=== PATIENT | male | born 1975 | race Two or more races ===

== ENCOUNTER 2020-10-12 15:02 | Outpatient (REF) | payer MEDICARE, SELFPAY ==
[2020-10-12 16:31] LABS: Hematocrit 47.7 % (42-52); Hemoglobin 15.6 g/dl (14.0-18.0); Mean Corpuscular HGB Conc 32.7 g/dl (31.0-36.0); Mean Corpuscular Hemoglobin 29.1 pg (27.0-33.0); Mean Corpuscular Volume 88.8 fL (80-98); Mean Platelet Volume 10.7 fL (9.4-12.4); Platelet Count 374 X10*3/uL (160-400); Red Blood Count 5.37 X10*6/uL (4.60-5.80); Red Cell Distribution Width 13.7 % (11.0-16.0)
[2020-10-12 16:35] LABS: Estimated Average Glucose 94 mg/dL; Hemoglobin A1c % 4.9 %
[2020-10-12 16:48] LABS: Alanine Aminotransferase 31 U/L (0-40); Albumin Level 4.5 g/dL (3.5-5.0); Alkaline Phosphatase 78 U/L (39-117); Anion Gap 12 (12-20); Aspartate Amino Transferase 21 U/L (5-37); Bilirubin Total 0.7 mg/dL (0.0-1.0); Blood Urea Nitrogen 14 mg/dL (9-16); Calcium 9.3 mg/dL (8.4-10.2); Carbon Dioxide 27 mmol/L (22-29); Chloride 104 mmol/L (96-108); Cholesterol 178 mg/dL; Estimated Glomerular Filt Rate > 60; Glucose Random 74 mg/dL (60-115); HDL Cholesterol 38 mg/dL; LDL Cholesterol Calculated 115 mg/dl; Potassium 4.2 mmol/L (3.3-5.1); Sodium 139 mmol/L (135-145); Total Protein 7.1 g/dL (6.5-8.0); Triglycerides 129 mg/dL
[2020-10-12 17:08] LABS: Vitamin D 25-OH Total 13.4 ng/mL (>30)
== END 2020-10-12 15:03 | disposition home or self-care (01) ==
LOC: HO.LAB 15:02
PROVIDERS: PCP Nurse Practitioner Family; Visit Provider Nurse Practitioner Family
DX: B00.9 Herpesviral infection, unspecified (principal); E55.9 Vitamin D deficiency, unspecified; E78.1 Pure hyperglyceridemia; F11.90 Opioid use, unspecified, uncomplicated; F41.8 Other specified anxiety disorders
CPT/HCPCS: 36415; 80053; 80061; 82306; 83036; 84443; 85027

== ENCOUNTER 2020-12-27 17:53 | Emergency (ER) | payer MEDICARE, MEDICAID, SELFPAY ==
--- NOTE | ~2020-12-27 | XR_ITS ---
EXAMINATION: XR RIBS, RIGHT CLINICAL INFORMATION: Right posterior chest wall pain. Rule out fracture. COMPARISON: None TECHNIQUE: 3 views of the right ribs were obtained. FINDINGS: Lungs are clear. No consolidation, pneumothorax, or pleural effusion. The cardiomediastinal silhouette and pulmonary vasculature are normal. Multiple views right ribs reveal no visible right rib fracture. XR/XR ribs RT min 3V w CXR1V IMPRESSION: Unremarkable chest exam. No visible right rib fractures seen.
[2020-12-27 18:10] VITALS: BP 125/93; PULSE 96; RESP 18; TEMP 37.1; O2SAT 100; BMI 23.8
--- NOTE | 2020-12-27 19:13 | ED.GENADULT ---
HPI - General Adult General Chief complaint: Back Pain/Injury Stated complaint: back pain Time Seen by Provider: 12/27/20 19:01 Source: patient Mode of arrival: ambulatory Limitations: no limitations History of Present Illness HPI narrative: 45-year-old male who presents emergency department for evaluation of right posterior chest pain. The patient does have a history of chronic lower back and pelvic pain secondary to a work related injury in 2007. The patient takes oxycodone 15 mg on a regular basis for pain. According to his significant other, on , 5 days prior he went fishing. On Saturday, 4 days prior he was lifting the edge of a bed up so that his girlfriend clean on in the bed when he had a sudden onset of pain in his right posterior chest, lower back. He states that he felt a cracking sensation. Since that time, he has had severe, constant pain any points to his right posterior chest when asked to localize the pain. The pain is a sharp pain which is worse with movement worse with breathing. He denies shortness of breath. He denies numbness or weakness of his extremities. He denies fever, chills, cough. Related Data Previous Rx's Medication Instructions Recorded prednisone 60 mg PO DAILY 7 Days #21 tab 12/27/20 Allergies Allergy/AdvReac Type Severity Reaction Status Date / Time morphine [MORPHINE] Allergy Severe CONSTIPATION, Unverified 04/14/20 19:15 stomach upset cyclobenzaprine Allergy Unknown DRY MOUTH Unverified 04/14/20 19:15 [From FLEXERIL] ibuprofen [From MOTRIN] Allergy Unknown ABD PAIN Unverified 04/14/20 19:15 influenza H1N1 Allergy Unknown Weakness Uncoded 12/27/20 18:10 Review of Systems Review of Systems: Yes all other systems are reviewed and are negative [facility] Past Medical History [facility] Narrative: Past medical history: Chronic lower back and pelvic pain secondary to work related injury in 2007, patient states that he had a surgery on his L5 and on his pelvis secondary to injury. The patient had a TENS unit x7 years which was recently removed. Social history: He does smoke cigarettes daily. He denies alcohol and drug use. Social History Social History Advance Directives: No Advance Directives Information Provided: Yes Physical Exam Vital Signs: Vital Signs: Last Vital Signs Temp 98.7 F 12/27/20 18:10 Pulse 96 12/27/20 18:10 Resp 18 12/27/20 18:10 BP 125/93 H 12/27/20 18:10 Pulse Ox 100 12/27/20 18:10 Body Mass Index 23.8 Const: General: cooperative and in distress ([id number] Secondary to his pain) Orientation/consciousness: oriented to person and oriented to place Limitations: no limitations HENMT: Head: Yes normal to inspection, Yes normocephalic and Yes atraumatic Ears: external ears normal General nose exam: Normal external nose present Face and sinus: Yes normal facial exam Mouth: Normal oral and palatal mucosa present Throat: Yes posterior oropharynx normal Eyes: Periorbital: periorbital findings normal Eyelids: Yes eyelids normal Conjunctivae: conjunctivae normal Sclerae: sclerae normal Corneas: corneas normal Pupils: Equal, round and reactive pupils present Direct Ophthalmoscopy: normal light reflex Neck: Neck: Yes full ROM, Yes no lymphadenopathy, Yes no meningeal signs, Yes trachea midline and Yes supple Chest: Chest palpation & inspection: normal inspection of the chest and tenderness (Moderate right posterior chest tenderness) rib (Moderate right posterior) Resp: Effort & Inspection: normal respiratory effort and able to speak in complete sentences Auscultation: clear to auscultation bilaterally Cardio: Rate: regular rate Rhythm: regular rhythm Heart sounds: S1 normal heart sound present, S2 normal heart sound present and no murmurs GI: Inspection: Yes normal to inspection Palpation (GI): Soft to palpation, nontender, no guarding, not rigid and No hepatosplenomegaly present : General: Yes no CVA tenderness Back/Spine/Pelvis: Back: no CVA tenderness Cervical Spine: normal cervical lordosis Thoracic/Lumbar Spine: thoracic and lumbar spine normal to inspection Skin: Lesions: no lesions Rashes: no rashes Wounds: no wounds Neuro: General: oriented to person, oriented to place and no meningeal signs Cranial nerves: Yes CN's II-XII intact bilaterally and Yes Equal, round and reactive pupils present Cognition (Neuro): normal cognition Motor exam (neuro): 5/5 motor strength present throughout Extrem: General: Yes normal to inspection and Yes full ROM Psych: Appearance: well kempt Mental Status: mental status grossly normal Speech and movement: Normal speech and movement present Affect: normal affect Attitude: cooperative Thought process: Normal thought process present Thought content: Normal thought content present Course Course Course Narrative: 45-year-old male who presents emergency department for evaluation of 4 days of right posterior chest pain that started suddenly after he was lifting a bed. Patient did feel a cracking sensation at the time of onset of the pain. Physical examination did reveal right posterior chest pain. Concerned that he may have a right rib fracture. I did order right rib x-rays and chest x-ray. 2023: The patient's chest x-ray and rib series did not reveal any acute fractures. My impression is that the patient has a nondisplaced rib fracture. The patient has a back belt that he wears and I moved it up to cover his rib area where he is having the pain. This gave him immediate relief of the pain suggesting that this is a rib injury. Patient was advised to wear his back belt as a rib belt for the next 1-2 weeks. He was given prednisone 60 mg orally and Tylenol 975 mg orally for his pain here in the emergency department. He was given a prescription for prednisone 60 mg once a day for 1 week. He was given verbal and printed instructions on rib injury and discharged home. Discharge Plan Discharge Clinical Impression: Right rib fracture Qualifiers: Encounter type: initial encounter Rib fracture type: single rib Fracture type: closed Qualified Code(s): S22.31XA - Fracture of one rib, right side, initial encounter for closed fracture Patient Disposition: Home, Self-Care Instructions: Rib Fracture (ED) Additional Instructions: Your chest x-ray did not reveal any displaced rib fracture. Based on your examination however I think you have a nondisplaced/cracked rib fracture. Wear your back belt as a rib belt for the next 1-2 weeks to help with your pain. Continue taking your oxycodone as prescribed. Take extra-strength Tylenol 500 mg pills, 2 pills every 6 hours as needed for pain. Take prednisone 20 mg pills, 3 pills once a day for 1 week. This is a strong anti-inflammatory pain medication. Follow-up with your doctor in 2 days. Please return to the emergency department if your symptoms get worse or if you develop any symptoms that are concerning to you. Prescriptions: New prednisone 20 mg tablet 60 mg PO DAILY 7 Days Qty: 21 RF: 0
[2020-12-27] MEDS: Acetaminophen 325 MG TABLET 975 MG PO (20:42)
[2020-12-27] MEDS: predniSONE 20 MG TABLET 60 MG PO (20:42)
== END 2020-12-27 20:30 | disposition home or self-care (01) ==
PROVIDERS: Emergency Provider Emergency Medicine Emergency Medical Services
DX: S22.31XA Fracture of one rib, right side, initial encounter for closed fracture (principal); R07.9 Chest pain, unspecified; M54.5 Low back pain; X50.0XXA Overexertion from strenuous movement or load, initial encounter; X50.3XXA Overexertion from repetitive movements, initial encounter; X50.9XXA Other and unspecified overexertion or strenuous movements or postures, initial encounter; Y93.E9 Activity, other interior property and clothing maintenance; Y92.009 Unspecified place in unspecified non-institutional (private) residence as the place of occurrence of the external cause; Y99.9 Unspecified external cause status; Z79.899 Other long term (current) drug therapy
CPT/HCPCS: 71101; 99284

== ENCOUNTER 2021-03-01 16:15 | Outpatient (REF) | payer MEDICARE, MEDICAID, SELFPAY ==
--- NOTE | ~2021-03-01 | XR_ITS ---
EXAMINATION: XR ABDOMEN KUB CLINICAL INDICATION: Pre-MRI screening COMPARISON: None TECHNIQUE: AP view of the abdomen. FINDINGS: Fusion hardware noted at the lumbosacral junction. Nonobstructive bowel gas pattern. No dilated loops of bowel. Gas and stool throughout the colon. No unexpected radiopaque foreign body. The lung bases are clear. XR/XR abdomen 1V IMPRESSION: No unexpected radiopaque foreign body.
--- NOTE | ~2021-03-01 | MR_ITS ---
EXAMINATION: MR LUMBAR SPINE WITHOUT AND WITH CONTRAST CLINICAL INFORMATION: Thoracolumbar lumbosacral intervertebral disc degeneration. Patient states right leg pain and right leg numbness. COMPARISON: Lumbar spine CT 04/21/2018. TECHNIQUE: MRI of the lumbar spine was obtained using routine sequences without and with intravenous contrast. A total of 6 mL Gadavist was intravenously administered. FINDINGS: There are postoperative findings related to instrumented fusion across the L5-S1 level with transpedicular screws and paired stabilization rods. Mild anterolisthesis of L5 on S1 appears stable from prior. The nonsurgical disc heights are preserved. Minimal amount of edema is seen at the anterior superior corner of T12. The distal spinal cord appears normal. The conus medullaris terminates normally at the L2 level. There is no abnormal cauda equina nerve root enhancement. The cauda equina nerve roots appear mildly disorganized and slightly redundant in the lower lumbar segments which could be related to arachnoiditis. The extraspinal soft tissues are within normal limits. SPINAL LEVELS: L1-L2: No posterior disc abnormality. No spinal canal or neural foraminal stenosis. L2-L3: No posterior disc abnormality. No spinal canal or neural foraminal stenosis. L3-L4: Minimal disc bulging. Minimal narrowing of the neural foramina. No spinal canal stenosis. L4-L5: Disc bulging with mild facet arthropathy. Moderate right and mild to moderate left neural foraminal stenosis with mild compression of the exiting right L4 and abutment of the exiting left L4 nerve roots. No spinal canal stenosis. L5-S1: Posterior decompression with instrumented fusion. No spinal canal stenosis. Right neural foramen appears mildly narrowed but without definite foraminal nerve root compression. MR/MR lumbar spine wo/w con IMPRESSION: Postoperative findings related to posterior decompression and instrumented fusion at the L5-S1 level. No definite nerve root compression seen at this level. At L4-L5 there is moderate right and mild to moderate left neural foraminal stenosis with mild compression of the exiting right L4 and abutment of the exiting left L4 nerve roots. Cauda equina nerve roots appear mildly disorganized and slightly redundant which is nonspecific but could be seen in the setting of arachnoiditis.
--- NOTE | ~2021-03-01 | XR_ITS ---
EXAMINATION: XR PRE-MRI SCREENING CLINICAL INFORMATION: Pre-MRI screening. Prior stimulator wires present. COMPARISON: Radiographs lumbar spine 11/18/[address] lumbar spine 04/21/2018. TECHNIQUE: Abdominal and pelvic radiographs are obtained in 2 views. FINDINGS: There has been prior lumbosacral laminectomy with bilateral rodding and pedicle screws lumbosacral junction. The hardware appears intact. The previously noted stimulator generator and wire leads have been removed. No lead fragments present. Lung bases are clear. XR/XR pre mri screening IMPRESSION: 1. Incidental rodding lumbosacral junction. 2. The generator device and electrodes stimulator leads are no longer present.
== END 2021-03-01 16:16 | disposition home or self-care (01) ==
LOC: HO.MRI 16:15
PROVIDERS: Visit Provider Nurse Practitioner Family
DX: M51.17 Intervertebral disc disorders with radiculopathy, lumbosacral region (principal)
CPT/HCPCS: 72158; 74018; A9585

== ENCOUNTER → 2021-12-04 16:17 | Outpatient (BNVA) | payer MEDICARE, MEDICAID, SELFPAY | PROVIDERS: PCP Family Medicine; Referring Provider Family Medicine; Visit Provider Nurse Practitioner | DX: Z12.11 Encounter for screening for malignant neoplasm of colon (principal); K21.9 Gastro-esophageal reflux disease without esophagitis | CPT/HCPCS: 99202 ==

== ENCOUNTER 2022-04-06 16:12 | Outpatient (REF) | payer MEDICARE, MEDICAID, SELFPAY ==
--- NOTE | ~2022-04-06 | CT_ITS ---
EXAMINATION: CT SINUS WITHOUT CONTRAST CLINICAL INFORMATION: 46-year-old with chronic sinusitis. COMPARISON: None TECHNIQUE: Volumetric CT imaging of the paranasal sinuses was done with multiplanar reformatted reconstructions. This CT examination was performed using dose optimization techniques as appropriate, variously including the following: *Automated exposure control *Adjustment of mA and/or kV according to patient size (this includes techniques or standardized protocols for targeted exams where dose is matched to indication/reason for exam; i.e. extremities or head) *Use of iterative reconstruction technique DLP: 112 mGy-cm FINDINGS: Nasal Cavity: [id number] nasal septal deviation to the right is noted anterosuperiorly with slight deviation to the left inferiorly. The olfactory recesses are clear. No nasal cavity masses. Nasopharyngeal soft tissues appear grossly unremarkable within the limitations of the exam. Maxillary Sinuses: Maxillary sinuses are well-pneumatized. There is focal mucosal thickening partially obscuring the right maxillary ostium with an otherwise unopacified OMC on the right. Left OMC is patent. Very small retention cyst along the floor of the right maxillary sinus. Otherwise clear maxillary sinuses with intact bony swanson. Ethmoid Sinuses: The ethmoid complex is predominantly unopacified, with intact bony swanson. Frontal Sinuses: The frontal sinuses are unopacified, with bilaterally patent drainage. A type III frontal cell is noted on the left. Sphenoid Sinus: Unopacified, with bilaterally patent sphenoid ostia. Carotid canals are posterolateral and covered by bone. Additional Findings: The visualized mastoids and middle ear cavities are unopacified. Limited assessment of the visualized intracranial structures show some nonspecific hypodensity in the right inferior frontal white matter. 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 Correlate clinically for any evidence of previous ocular trauma to account for this. CT/CT sinus wo IV con IMPRESSION: 1. Sinusoidal nasal septal deviation without nasal cavity mass. 2. Minimal focal mucosal thickening adjacent to the right maxillary ostium which appears to partially occlude the right OMC without air-fluid level. Minor mucosal thickening and a small retention cyst along the floor of the right maxillary sinus. 3. Nonspecific hypodensity in the inferior right frontal white matter suggested. If clinically warranted, further assessment with CT of the brain may be done for additional evaluation to exclude edema in this region. 4. Findings on the left suggest phthisis bulbi. Suggest correlation for any previous left-sided ocular trauma.
== END 2022-04-06 16:13 | disposition home or self-care (01) ==
LOC: HO.CT 16:12
PROVIDERS: PCP Family Medicine; Visit Provider Family Medicine
DX: J31.0 Chronic rhinitis (principal); F17.200 Nicotine dependence, unspecified, uncomplicated
CPT/HCPCS: 70486

== ENCOUNTER 2022-04-27 14:23 | Outpatient (REF) | payer MEDICARE, MEDICAID, SELFPAY ==
--- NOTE | 2022-04-27 | PFT_ITS ---
FLOWS: FEV1 90% of predicted at 2.75 L. FVC 96% of predicted at 3.71 L. FEV1 to FVC ratio of 0.74. No bronchodilator response. LUNG VOLUMES: Total lung capacity 114% of predicted at 6.03 L. Residual volume 161% of predicted at 2.45 L. Slow vital capacity 94% of predicted at 3.59 L. Expiratory reserve volume 26% of predicted at 0.28 L. Diffusion capacity is normal. IMPRESSION: No obstructive or restrictive ventilatory defect. No bronchodilator response. Increased residual volume suggests air trapping. Virgil Bowman MD AP/MODL / [id number]
[2022-04-27 14:45] LABS: MANUAL DIFF FLAG NO
[2022-04-27 15:07] LABS: Basophils Absolute Auto 0.1 X10*3/uL (0.0-0.2); Basophils Percent Auto 1.1 % (0-2); Eosinophils Absolute Auto 0.1 X10*3/uL (0.0-0.4); Eosinophils Percent Auto 1.3 % (0-4); Hematocrit 45.3 % (42.0-52.0); Hemoglobin 14.9 g/dl (14.0-18.0); Imm Gran Abs Auto 0.01 X10*3/uL (0.00-0.03); Imm Gran Pct Auto 0.1 % (0.0-0.4); Lymphocytes Absolute Auto 2.4 X10*3/uL (1.2-4.9); Lymphocytes Percent Auto 28.8 % (20-40); Mean Corpuscular HGB Conc 32.9 g/dl (31.0-36.0); Mean Corpuscular Hemoglobin 28.9 pg (27.0-33.0); Mean Platelet Volume 11.4 fL (9.4-12.4); Monocytes Absolute Auto 0.5 X10*3/uL (0.1-1.2); Monocytes Percent Auto 5.8 % (2-11); Neutrophils Absolute Auto 5.3 x10*3/uL (2.0-8.3); Neutrophils Percent Auto 62.9 % (45-73); Platelet Count 286 X10*3/uL (160-400); Red Blood Count 5.15 X10*6/uL (4.60-5.80); Red Cell Distribution Width 13.2 % (11.0-16.0); White Blood Count 8.4 X10*3/uL (4.8-10.8)
[2022-04-27 15:14] LABS: Estimated Average Glucose 100 mg/dL; Hemoglobin A1c % 5.1 %
[2022-04-27 15:29] LABS: Cholesterol 164 mg/dL; HDL Cholesterol 33 mg/dL; LDL Cholesterol Calculated 108 mg/dl; Triglycerides 117 mg/dL
[2022-04-27 16:48] LABS: CT PCR NOT DETECTED (Not Detect.); NG PCR NOT DETECTED (Not Detect.)
[2022-04-30 08:13] LABS: HIV AB/AG Nonreactive (Nonreactive); HIV Num 1 0.07 S/CO (0.00-0.99); ~Hepatitis B Surface Antibody NONREACTIVE (Nonreactive)
== END 2022-04-27 14:24 | disposition home or self-care (01) ==
LOC: HO.RESP 14:23
PROVIDERS: PCP Family Medicine; Visit Provider Family Medicine
DX: Z11.3 Encounter for screening for infections with a predominantly sexual mode of transmission (principal); Z11.4 Encounter for screening for human immunodeficiency virus [HIV]; Z00.00 Encounter for general adult medical examination without abnormal findings; J45.20 Mild intermittent asthma, uncomplicated; F17.200 Nicotine dependence, unspecified, uncomplicated; R03.0 Elevated blood-pressure reading, without diagnosis of hypertension; J31.0 Chronic rhinitis; F33.2 Major depressive disorder, recurrent severe without psychotic features; E78.1 Pure hyperglyceridemia
CPT/HCPCS: 80061; 83036; 85025; 86706; 87389; 87491; 87591; 94060; 94727; 94729

== ENCOUNTER 2022-05-21 15:48 | Outpatient (REF) | payer MEDICARE, MEDICAID, SELFPAY ==
--- NOTE | ~2022-05-21 | CT_ITS ---
EXAMINATION: CT HEAD WITH CONTRAST CLINICAL INFORMATION: 46-year-old with previously noted abnormal finding in the right frontal lobe on CT of the sinuses. COMPARISON: 04/06/2022 CT sinus. TECHNIQUE: Contiguous axial imaging was performed from the skull base to vertex following the administration of 85 mL of Omnipaque [address] examination was performed using dose optimization techniques as appropriate, variously including the following: *Automated exposure control *Adjustment of mA and/or kV according to patient size (this includes techniques or standardized protocols for targeted exams where dose is matched to indication/reason for exam; i.e. extremities or head) *Use of iterative reconstruction technique DLP: 729 mGy-cm FINDINGS: BRAIN VOLUME: Within normal limits. STRUCTURAL: No malformations. BRAIN AND MENINGES: Redemonstrated is patchy hypodensity in the inferior right frontal white matter with a similar appearance to the previous study. Small foci of intravascular enhancement are seen at its central and posterior aspect which may reflect neovascularity in this region. Probable small focus of pathologic enhancement is well. No definite mass effect seen related to this. A hypodense lesion is seen in the left subcortical parietal white matter measuring 1 cm which also appears to be associated with a punctate focus of enhancement. The remainder of the brain is normal in morphology and attenuation. No acute territorial infarct, hemorrhage, extra-axial fluid collection, space-occupying process or mass effect. Hannah-white matter differentiation is maintained. VENTRICLES AND SUBARACHNOID SPACES: The ventricular system and subarachnoid spaces are within normal limits without hydrocephalus. ORBITAL STRUCTURES: Redemonstrated is evidence of phthisis bulbi in the left globe. OSSEOUS STRUCTURES, SINUSES/MASTOIDS, EXTRACRANIAL SOFT TISSUES: The bony structures appear intact. The mastoids and middle ear cavities are unopacified and the visualized paranasal sinuses are clear. Probable small bone island in the right frontal bone. CT/CT head/brain w IV con IMPRESSION: 1. Hypodense lesions in the right inferior frontal white matter and left subcortical parietal white matter with tiny enhancing foci within these lesions, which are nonspecific. Differential diagnostic considerations include primarily inflammatory and infectious diseases, particularly demyelination. Neoplastic disease is considered less likely. Recommend MRI of the brain without and with contrast to further assess this at this point. 2. No other acute findings and no significant space-occupying process, mass effect or hydrocephalus. The [facility] staff will call to confirm receipt of this report with acknowledgement of the findings and any recommendations.
[2022-05-21] MEDS: iohexoL 350 MG/ML 100 ML INFUS..BTL IV (16:27)
== END 2022-05-21 15:49 | disposition home or self-care (01) ==
LOC: HO.CT 15:48
PROVIDERS: Visit Provider Family Medicine
DX: J32.9 Chronic sinusitis, unspecified (principal); R93.0 Abnormal findings on diagnostic imaging of skull and head, not elsewhere classified
CPT/HCPCS: 70460; Q9967

== ENCOUNTER 2022-06-19 15:52 | Outpatient (REF) | payer MEDICARE, MEDICAID, SELFPAY ==
--- NOTE | ~2022-06-19 | MR_ITS ---
EXAMINATION: MR BRAIN WITHOUT AND WITH CONTRAST CLINICAL INFORMATION: Disorder of brain. CT recommended MRI. COMPARISON: Head CT 05/21/2022. TECHNIQUE: Multiplanar, multisequence imaging of the brain was performed before and after the intravenous administration of 6 mL of Gadavist. FINDINGS: Mildly expansile foci of T2/FLAIR hyperintensity are seen within the periventricular and deep cerebral white matter, most prominent adjacent to the frontal horn of the right lateral ventricle and in the left parietal white matter, adjacent to the atrium. The imaging appearance is most suspicious for demyelinating plaques. No definite abnormal enhancement is seen There is no acute infarction, hemorrhage, or extra-axial fluid collection. The ventricles are normal in size without hydrocephalus. No signal abnormalities seen within the corpus callosum. The upper cervical cord signal appears normal. The major arterial flow voids are preserved at the skull base. There is a left orbital implant in place. The extra cranial structures are otherwise within normal limits. MR/MR head/brain wo/w con IMPRESSION: Mildly expansile foci of T2/FLAIR hyperintensity are seen within the periventricular and deep cerebral white matter, most prominent adjacent to the frontal horn of the right lateral ventricle and in the left parietal white matter. The imaging appearance is most suspicious for demyelinating plaques. No abnormal enhancement is seen.
== END 2022-06-19 15:53 | disposition home or self-care (01) ==
LOC: HO.MRI 15:52
PROVIDERS: Visit Provider Family Medicine
DX: G93.9 Disorder of brain, unspecified (principal)
CPT/HCPCS: 70553; A9585

== ENCOUNTER 2022-09-26 16:11 | Outpatient (REF) | payer MEDICARE, MEDICAID, SELFPAY ==
[2022-09-26 18:22] LABS: Erythrocyte Sedimentation Rate 2 MM/HR (0-15)
[2022-09-27 20:53] LABS: Lyme Abs Screen <0.90 index
[2022-09-28 15:59] LABS: Anti Nuclear Antibody Screen NEGATIVE (NEGATIVE)
== END 2022-09-26 16:12 | disposition home or self-care (01) ==
LOC: HO.LAB 16:11
PROVIDERS: PCP Family Medicine; Visit Provider Psychiatry & Neurology Neurology
DX: G35 Multiple sclerosis (principal)
CPT/HCPCS: 36415; 85652; 86038; 86039; 86617; 86618

== ENCOUNTER 2022-10-09 09:55 | Day surgery (SDC) | payer MEDICARE, MEDICAID, SELFPAY ==
[2022-06-07 15:19] VITALS: BMI 22.4
[2022-10-05 10:38] VITALS: BMI 23.8
--- NOTE | 2022-10-08 09:28 | HO.ANESPROP2 ---
HPI - Anesthesia Eval Consult details Narrative: 46yo M for Colonoscopy Left eye enucleation PMFSH Active Problems Active Problems: All Active Problems (Updated 06/07/22 @ 15:08 by Debbie Wilcox RN) Asthma (Acute) Smoker (Acute) Lumbar degenerative disc disease (Acute) Chronic low back pain (Acute) Depression with anxiety (Acute) Herpes simplex (Acute) GERD (gastroesophageal reflux disease) (Acute) One eye-mod/oth-blind (Acute) Colon cancer screening (Acute) Past Medical History Medical History Asthma Depression with anxiety Failed spinal cord stimulator GERD (gastroesophageal reflux disease) Pelvis, multiple open fractures with disruption of pelvic [place] Surgical History Surgical History H/O enucleation of left eyeball H/O pelvic surgery History of arthroscopy of right knee History of back surgery Social History Social History Are you a primary health care analyst to a significant other at home: No Do you presently have visiting nurse or other home services: No Patient Tobacco Use Status: Current everyday Tobacco user Tobacco use type: Cigarette Cigarettes Per Day: 10 Meds Allergies Allergy/AdvReac Type Severity Reaction Status Date / Time amitriptyline Allergy Severe Confusion Verified 10/09/22 10:07 morphine [MORPHINE] Allergy Severe CONSTIPATION, Verified 10/09/22 10:07 stomach upset ibuprofen [From MOTRIN] AdvReac Intermediate ABD PAIN Verified 10/09/22 10:07 cyclobenzaprine AdvReac Mild DRY MOUTH Verified 10/09/22 10:07 [From FLEXERIL] influenza H1N1 Allergy Intermediate Weakness Uncoded 10/05/22 10:34 Home Medications Medication Instructions Recorded Confirmed Last Taken Type albuterol sulfate 90 mcg/actuation 2 puff inhalation Q4-6H PRN 12/04/21 06/07/22 Unknown History aerosol inhaler wheezing alprazolam 0.5 mg tablet 0.5 mg PO DAILY PRN anxiety 12/04/21 06/07/22 10/09/22 08:30 History duloxetine 30 mg capsule,delayed 30 mg PO BID 12/04/21 06/07/22 Unknown History release trazodone 50 mg tablet 25 mg PO BEDTIME 12/04/21 10/05/22 Unknown History oxycodone 15 mg tablet 1 tab PO TID PRN Pain 10/05/22 10/05/22 10/09/22 08:30 History Exam Exam Date and Time: October 08, 2022 0928 Height,Weight and Vital Signs: Height 5 ft 2 in Weight 58.967 kg Pertinent Lab Results Pertinent Lab Results: Laboratory Tests 04/27/22 14:42 WBC 8.4 Hgb 14.9 Hct 45.3 Plt Count 286 Assessment and Plan Assessment Anesthesia Assessment: Chart Reviewed
[2022-10-09 10:08] VITALS: BP 116/80; PULSE 68; RESP 15; TEMP 36.9; O2SAT 99
[2022-10-09 10:20] VITALS: BMI 23.8
[2022-10-09] MEDS: Lactated Ringers 1,000 ML 100 ML IVCONT (10:20)
--- NOTE | 2022-10-09 11:28 | P.HPSUR_ITS ---
Pre-Procedural Eval Section A Date of Service: 10/09/22 Section B Chief Complaint: screening Relevant Family History (Specify if Yes): No Relevant Social History: Tobacco Use Present Medications: see Short Stay Collaborative assessment Medical History: Significant History (Asthma Depression with anxiety Failed spinal cord stimulator GERD (gastroesophageal reflux disease) Pelvis, multiple open fractures with disruption of pelvic [place]) History of Previous Operations: Relevant previous surgery/procedure and date(s) (H/O enucleation of left eyeball H/O pelvic surgery History of arthroscopy of right knee History of back surgery) Allergies: Allergies Allergy/AdvReac Type Severity Reaction Status Date / Time amitriptyline Allergy Severe Confusion Verified 10/09/22 10:07 morphine [MORPHINE] Allergy Severe CONSTIPATION, Verified 10/09/22 10:07 stomach upset ibuprofen [From MOTRIN] AdvReac Intermediate ABD PAIN Verified 10/09/22 10:07 cyclobenzaprine AdvReac Mild DRY MOUTH Verified 10/09/22 10:07 [From FLEXERIL] influenza H1N1 Allergy Intermediate Weakness Uncoded 10/05/22 10:34 Review of Systems Sugical H&P ROS: Negative: Constitution, Cardiovascular, Respiratory, Neurological, Psychiatric, Hem-Onc, Allergic/Immunologic, Gastrointestinal, Genitourinary, Musculoskeletal, Integumentary, Endocrine and Eyes/Ears/Nose/Throat Exam Surgical H&P Exam: Normal: HEENT, Normal: Heart, Normal: Lungs, Normal: Extremities, Normal: Abdomen, Normal: Skin and Normal: Neurological Exam Comment: ptosis left eye Plan Diagnosis/Plan: Unchanged I have reviewed the history and physical and performed a pertinent physical examination on my patient. No changes have occurred unless specified. Time Spent With Patient Time: Total time managing care of this patient today ____ minutes.
--- NOTE | 2022-10-09 11:30 | P.OP_ITS ---
Operative Note Operative Note Date of Service: 10/09/22 Narrative: Operative Information Procedure Description: Colonoscopy Indication: screening Anesthesia: MAC COLONOSCOPY Instrument: Olympus variable stiffness pediatric scope 190L Colonoscopy Monitoring: Vital signs and clinical assessment, continuous EKG monitoring, Pulse oximetry, Carbon Dioxide monitoring and blood pressure monitoring were done throughout the procedure. Colon withdrawal time was 8 minutes. Procedure: The patient was placed in the left lateral decubitis position and pre-procedure medications were administered. After a digital rectal examination of the ano-rectum, the video colonoscope was inserted into the rectum and advanced through the colon to the cecum/TI. The colonoscope was slowly withdrawn in a retrograde panoramic fashion and the colon mucosa was carefully examined including a retroflexed view of the rectum. Findings and interventions are described below. Procedure Difficulty: easy Findings: Terminal Ileum-normal Cecum:normal Ascending Colon: 12 mm sessile polyp removed with cold snare, 4-5 mm sessile polyp removed with cold forceps Transverse Colon -normal Descending Colon:normal Sigmoid Colon: normal Rectum: Retroflexion with small inflammed internal hemorrhoids, grade I Anorectum - normal Colon preparation: [place] Bowel Preparation Scale Right colon; 2 Transverse colon: 2 Left colon; 2 (0 = Unprepared colon segment with mucosa not seen due to solid stool that cannot be cleared. 1 = Portion of mucosa of the colon segment seen, but other areas of the colon segment not well seen due to staining, residual stool and/or opaque liquid. 2 = Minor amount of residual staining, small fragments of stool and/or opaque liquid, but mucosa of colon segment seen well. 3 = Entire mucosa of colon segment seen well with no residual staining, small fragments of stool or opaque liquid) Impression and Post Procedure Diagnosis: polyps internal hemorrhoids Plan: High fiber diet leaflet Avoid straining at stool, epsom salts and sitz bath, anusol supps or cream Repeat Colonoscopy in 5 years due to polyps or earlier if clinically indicated Above findings were reviewed with the patient and relevant handouts were provided if indicated.
[2022-10-09 12:03] VITALS: BP 108/76; PULSE 71; RESP 16; TEMP 36.2; O2SAT 99
[2022-10-09 12:18] VITALS: BP 126/84; PULSE 61; RESP 16; TEMP 36.2; O2SAT 99
== END 2022-10-09 13:03 | disposition home or self-care (01) ==
PROVIDERS: PCP Family Medicine; Visit Provider Internal Medicine Gastroenterology
PROC: 0DJD8ZZ Inspection of Lower Intestinal Tract, Via Natural or Artificial Opening Endoscopic (ICD-10-PCS; CPT 45378; principal; 2022-10-09 11:10)
DX: Z12.11 Encounter for screening for malignant neoplasm of colon (principal); D12.2 Benign neoplasm of ascending colon; K64.0 First degree hemorrhoids; J45.909 Unspecified asthma, uncomplicated; F41.8 Other specified anxiety disorders; K21.9 Gastro-esophageal reflux disease without esophagitis; Z79.899 Other long term (current) drug therapy; Z88.0 Allergy status to penicillin; F17.210 Nicotine dependence, cigarettes, uncomplicated; Z98.890 Other specified postprocedural states
CPT/HCPCS: 45385; 45380; 88305

== ENCOUNTER 2022-12-03 18:07 | Emergency (ER) | payer MEDICARE, MEDICAID, SELFPAY ==
--- NOTE | ~2022-12-03 | XR_ITS ---
EXAMINATION: PA AND LATERAL CHEST WITH RIGHT RIBS CLINICAL INFORMATION: Chest pain COMPARISON: Chest and right RIBS 07/29/2020 TECHNIQUE: 2 views chest with 3 additional views right RIBS FINDINGS: No significant abnormality is seen involving the heart, lungs, mediastinum or bony thorax. The ribs appear unremarkable. XR/XR ribs RT 2V IMPRESSION: Unremarkable examination.
--- NOTE | ~2022-12-03 | XR_ITS ---
EXAMINATION: PA AND LATERAL CHEST WITH RIGHT RIBS CLINICAL INFORMATION: Chest pain COMPARISON: Chest and right RIBS 07/29/2020 TECHNIQUE: 2 views chest with 3 additional views right RIBS FINDINGS: No significant abnormality is seen involving the heart, lungs, mediastinum or bony thorax. The ribs appear unremarkable. XR/XR chest 2V IMPRESSION: Unremarkable examination.
--- NOTE | 2022-12-03 18:12 | ECG_ITS ---
Test Reason : CHEST PAIN/SOB Blood Pressure : / mmHG Vent. Rate : 077 BPM Atrial Rate : 077 BPM P-R Int : 152 ms QRS Dur : 090 ms QT Int : 370 ms P-R-T Axes : 085 043 055 degrees QTc Int : 418 ms Normal sinus rhythm Normal ECG No previous ECGs available Referred By: Generic ED Physician Electronically Signed By:TONY CARDOZA
--- OUTSIDE RECORDS SUMMARY | 2022-12-03 18:30 | XMS_ITS | Continuity of Care Document ---
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 Refills 0, Acute, Pain , Moderate, 10/03/20 14:21:00 EST, 09/26/20 14:20:00 EST, Route to Pharmacy Electronically, [facility] Tablet, Partial fill upon patient request... Start Date: 09/26/20 Stop Date: 10/03/20 Status: Ordered albuterol (OP) 0 Refills, Maintenance, 2 Start Date: 09/19/20 Status: Ordered Omeprazole = 20 mg, By Mouth, Daily, 0 Refills, Maintenance, 09/19/20 14:45:00 EST, Partial fill upon patient request if the prescription is for a schedule II opioid drug. Start Date: 09/19/20 Status: Ordered oxycodone 15 mg oral tablet 1 tablet = 15 mg, By Mouth, Every 6 hours, PRN for pain, # 50 tablet, 0 Refills, Maintenance, Tablet Start Date: 01/07/11 Status: Ordered oxycodone 15 mg oral tablet 1 tablet = 15 mg, By Mouth, Every 6 hours, PRN for pain, # 50 tablet, 0 Refills, Maintenance, Tablet Start Date: 01/07/11 Status: Ordered OxyCODONE IR Tablet 5 mg, Tablet, By Mouth, Every 4 hours, in PACU ONLY, if patient can tolerate PO, PRN for Pain , Mild, Routine, 09/26/20 15:16:00 EST Start Date: 09/26/20 Stop Date: 10/03/20 Status: Ordered Xanax 0.5 mg oral tablet 1 tablet = 0.5 mg, By Mouth, 3 times a day, PRN as needed for anxiety, # 12 tablet, 0 Refills, Maintenance, Tablet Start Date: 01/07/11 Status: Ordered Procedures Procedure Date Related Diagnosis Body Site Status Revision or removal of 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 Completed Vital Signs Most recent to oldest [Reference Range]: 1 2 3 Height 152.40 cm (09/26/20 1:51 PM) 152.40 cm (09/19/20 3:45 PM) Weight 57 kg (09/26/20 1:51 PM) 60.0 kg (09/19/20 3:45 PM) Oxygen Saturation [94-100 %] 100 % (09/26/20 5:30 PM) 100 % (09/26/20 5:15 PM) 100 % (09/26/20 5:00 PM) Pulse Rate [55-90 bpm] 61 bpm (09/26/20 1:51 PM) Body Mass Index [18.5-24.99] 24.54 (09/26/20 1:51 PM) 25.83 *H* (09/19/20 3:45 PM) Blood Pressure [90-138/55-84 mm Hg] 152/92mm Hg *H* (09/26/20 5:30 PM) 152/92mm Hg *H* (09/26/20 5:15 PM) 116/84mm Hg (09/26/20 5:00 PM) Respiratory Rate [16-30 br/min] 16 br/min (09/26/20 5:46 PM) 14 br/min *L* (09/26/20 5:30 PM) 30 br/min (09/26/20 5:15 PM) Temperature [96.8-100.4 DegF] 97.8 DegF (09/26/20 5:45 PM) 97.5 DegF (09/26/20 3:30 PM) 97.7 DegF (09/26/20 1:51 PM) Liters per Minute 2 L/min (09/26/20 5:00 PM) 2 L/min (09/26/20 4:45 PM) 4 L/min (09/26/20 3:45 PM) Mode of Delivery (Oxygen) Room air (09/26/20 5:30 PM) Room air (09/26/20 5:15 PM) Nasal cannula (09/26/20 5:00 PM) Blood pressure sites Arm, left (09/26/20 1:51 PM) Temperature Route Temporal (09/26/20 5:45 PM) Temporal (09/26/20 3:30 PM) Temporal (09/26/20 1:51 PM) Dry Weight 57 kg (09/26/20 1:51 PM) 60.0 kg (09/19/20 3:45 PM) Weight Obtained Via Standing scale (09/26/20 1:51 PM) Patient/family stated (09/19/20 3:45 PM) Dry Weight Obtained Via Standing scale (09/26/20 1:51 PM)
--- OUTSIDE RECORDS SUMMARY | 2022-12-03 18:30 | XMS_ITS | Continuity of Care Document ---
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 [place] Date(s): 10/17/22 - 11/16/[address] [address]- Attending Physician: Emely Brand Admitting Physician: Emely Brand Referring Physician: Emely Brand Patient Care team information Care Team Personnel Name: Not on Staff, PCP Position: [facility] Physician (General Medicine) Member Role: PCP
--- OUTSIDE RECORDS SUMMARY | 2022-12-03 18:30 | XMS_ITS | Continuity of Care Document ---
Author Name Unknown Organization [facility] Address [address] [place] [address]- Care Team Providers Care Index Editor Name Role Phone Not on Staff, PCP Primary Care Physician Unavail able [place] [facility] [place]): 09/10/22 - 11/07/22 [facility] [address] [place] [phone]- Encounter Diagnosis Unilateral primary osteoarthritis, right knee(Final) - Discharge Disposition: A-D/C Home Attending Physician: Not on Staff, Attending MD Admitting Physician: Not on Staff, Admitting MD Referring Physician: Siria Marroquin Patient Care team information Care Team Personnel Name: Not on Staff, PCP Position: S Physician (General Medicine) Member Role: PCP
[2022-12-03 18:52] VITALS: BP 143/90; PULSE 75; RESP 18; TEMP 36.8; O2SAT 98; BMI 26.6
--- NOTE | 2022-12-03 18:54 | ED_ITS ---
HPI - General Adult General Chief complaint: Chest Pain <Adrien Tinoco - Last Filed: 12/03/22 18:56> Stated complaint: Chest/ back pain, SOB. Sharp pain since sat <Adrien Tinoco - Last Filed: 12/03/22 18:56> Time Seen by Provider: 12/03/22 21:33 <Adrien Tinoco - Last Filed: 12/03/22 18:56> Source: patient, family (Significant other) and home performance consultant <Angel Luis Gurrola MD - Last Filed: 12/03/22 21:57> Mode of arrival: ambulatory <Angel Luis Gurrola MD - Last Filed: 12/03/22 21:57> Limitations: no limitations <Angel Luis Gurrola MD - Last Filed: 12/03/22 21:57> History of Present Illness HPI narrative: 46-year-old male presented to the emergency department for evaluation of right posterior chest pain, pain started 2 days ago after pushed heavy bed (pain did not start immediately but a day after), patient with history of chronic low back and pelvic pain secondary to a work-related injury in 2007 patient takes oxycodone 15 mg on a regular basis for pain. Patient had a similar presentation 2 years ago. Otherwise patient had no recent travel, no prolonged immobilization, no lower extremity swelling or tenderness. <Angel Luis Gurrola MD - Last Filed: 12/03/22 21:57> Related Data Home medications: Home Medications Medication Instructions Recorded Confirmed albuterol sulfate 90 mcg/actuation 2 puff inhalation Q4-6H PRN 12/04/21 06/07/22 aerosol inhaler wheezing alprazolam 0.5 mg tablet 0.5 mg PO DAILY PRN anxiety 12/04/21 06/07/22 duloxetine 30 mg capsule,delayed 30 mg PO BID 12/04/21 06/07/22 release trazodone 50 mg tablet 25 mg PO BEDTIME 12/04/21 10/05/22 oxycodone 15 mg tablet 1 tab PO TID PRN Pain 10/05/22 10/05/22 Previous Rx's Medication Instructions Recorded peg 3350-electrolytes 236 240 ml PO Q10M 1 day #4,000 mL 06/13/22 gram-22.74 gram-6.74 gram-5.86 gram solution (Golytely) omeprazole 20 mg capsule,delayed 20 mg PO BID #60 caps 08/28/22 release <Adrien Tinoco - Last Filed: 12/03/22 18:56> Allergies/adverse reactions: Allergies Allergy/AdvReac Type Severity Reaction Status Date / Time amitriptyline Allergy Severe Confusion Verified 10/09/22 10:07 morphine [MORPHINE] Allergy Severe CONSTIPATION, Verified 10/09/22 10:07 stomach upset ibuprofen [From MOTRIN] AdvReac Intermediate ABD PAIN Verified 10/09/22 10:07 cyclobenzaprine AdvReac Mild DRY MOUTH Verified 10/09/22 10:07 [From FLEXERIL] influenza H1N1 Allergy Intermediate Weakness Uncoded 10/05/22 10:34 <Adrien Tinoco - Last Filed: 12/03/22 18:56> Review of Systems Review of Systems: All other systems are reviewed and are negative Constitutional: Reports as per HPI and Reports no additional constitutional complaints Eyes: Reports as per HPI and Reports no additional eye complaints Reports system reviewed and no additional complaints, except as documented Cardiovascular: Reports as per HPI and Reports no additional cardiovascular com plaints Respiratory: Reports as per HPI and Reports no additional respiratory complaints Gastrointestinal: Reports as per HPI and Reports no additional gastrointestinal complaints Genitourinary: Reports no additional female genitourinary complaints Musculoskeletal: Reports no additional musculoskeletal complaints Skin/Breast: Reports system reviewed and no additional complaints, except as docu Psychiatric: Reports no additional psychiatric complaints Endocrine: Reports no additional endocrine complaints Hematologic/Lymphatic: Reports no additional hematologic/lymphatic complaints Allergic/Immunologic: Reports no additional allergic/immunologic complaints Reports system reviewed and no additional complaints, except as documented and Reports Abnormal speech present <Angel Luis Gurrola MD - Last Filed: 12/03/22 21:57> [facility] Past Medical History Medical History: Medical History Asthma Depression with anxiety Failed spinal cord stimulator GERD (gastroesophageal reflux disease) Pelvis, multiple open fractures with disruption of pelvic [place] <Adrien Tinoco - Last Filed: 12/03/22 18:56> Surgical History: Surgical History H/O enucleation of left eyeball H/O pelvic surgery History of arthroscopy of right knee History of back surgery <Adrien Tinoco - Last Filed: 12/03/22 18:56> Social History Social History: Social History Are you a primary home care chaplain to a significant other at home: No Do you presently have visiting nurse or other home services: No Alcohol intake: never Patient Tobacco Use Status: Current everyday Tobacco user Tobacco use type: Cigarette Cigarettes Per Day: 10 Smoked in Last 30 Days: Yes Use of substances other than those prescribed or required for medical reasons: No Advance Directives: No Advance Directives Information Provided: No <Adrien Tinoco - Last Filed: 12/03/22 18:56> Physical Exam ED Vital Signs: Vital Signs - 24 hr 12/03/22 18:52 12/03/22 22:11 12/03/22 22:36 Temperature 98.2 F 97.7 F Pulse Rate 75 67 Respiratory Rate 18 10 L 13 Blood Pressure 143/90 H 138/100 H Pulse Oximetry 98 98 Oxygen Delivery Method Room Air 12/03/22 23:23 Temperature 98.0 F Pulse Rate 64 Respiratory Rate 11 L Blood Pressure 113/83 Pulse Oximetry 99 Oxygen Delivery Method BMI result Body Mass Index 26.6 <Adrien Tinoco - Last Filed: 12/03/22 18:56> Vital Signs - 24 hr 12/03/22 18:52 12/03/22 22:11 12/03/22 22:36 Temperature 98.2 F 97.7 F Pulse Rate 75 67 Respiratory Rate 18 10 L 13 Blood Pressure 143/90 H 138/100 H Pulse Oximetry 98 98 Oxygen Delivery Method Room Air 12/03/22 23:23 Temperature 98.0 F Pulse Rate 64 Respiratory Rate 11 L Blood Pressure 113/83 Pulse Oximetry 99 Oxygen Delivery Method BMI result Body Mass Index 26.6 Vital signs have been reviewed as appeared to be correct. Blood pressure normal. Heart rate normal. Respiration rate normal. Temperature normal. Oxygen saturation normal. <Angel Luis Gurrola MD - Last Filed: 12/03/22 21:57> Vital Signs - 24 hr 12/03/22 18:52 12/03/22 22:11 12/03/22 22:36 Temperature 98.2 F 97.7 F Pulse Rate 75 67 Respiratory Rate 18 10 L 13 Blood Pressure 143/90 H 138/100 H Pulse Oximetry 98 98 Oxygen Delivery Method Room Air 12/03/22 23:23 Temperature 98.0 F Pulse Rate 64 Respiratory Rate 11 L Blood Pressure 113/83 Pulse Oximetry 99 Oxygen Delivery Method BMI result Body Mass Index 26.6 <Lisbeth Raymond MD - Last Filed: 12/03/22 23:29> Appearance: Alert. Oriented X3. No acute distress. Head: Normal external exam. Normocephalic. Atraumatic. No Rachel signs noted. No raccoon eyes noted Eyes: PERRLA. EOMI. Conjunctiva and sclera normal. Eyelids normal. ENT: TM's Normal. Pharynx normal. Uvula midline. Moist mucous membranes. No trismus noted. No drooling noted. No muffled voice noted. Neck: Normal inspection. Neck supple. FROM. No adenopathy. Thyroid Normal. No meningeal signs. No neck mass noted. CVS: Normal heart rate and rhythm. Heart sound normal. No murmurs noted. Pulses normal throughout. Respiratory: No respiratory distress. Painless inspiration. Breath sounds normal. No wheezes/rales/rhonchi noted. Diffuse right side of the chest reproducible tenderness. No accessory muscle usage noted or decreased air movement noted. Abdomen: Soft and nontender. Bowel sounds normal in all 4 quadrants. No distention noted. No organomegaly noted. No visible injury noted. Back: No CVA tenderness. Full range of motion noted. Skin: Skin warm and dry. Normal skin color. Normal skin turgor. No rashes/lesions/lacerations noted. Extremities: No lower extremity edema. Extremities exhibit normal range of motion. Extremities nontender. Neuro: Oriented X 3. Cranial nerve exam: II-XII are grossly intact No motor deficit. No sensory deficit. Reflexes normal. <Angel Luis Gurrola MD - Last Filed: 12/03/22 21:57> Course Course Course Narrative: 46 year old male with PMHx signficant for asthma, GERD, anxiety, tobacco dependance presents for evaluation of chest pain that radiates through to his back x2 days. Denies any personal cardiac history, but reports family cardiac history <Adrien iTnoco - Last Filed: 12/03/22 18:56> Reevaluation(s) Reevaluation #1: A 46-year-old came in with right-sided abdominal pain patient is on chronic narcotic due to chronic back pain secondary to previous work injury. Patient received Dilaudid awaiting chest/rib x-ray. Signed out to Dr. Raymond for reassessment after Dilaudid administration and check on official chest x-ray. Expect patient to go home. <Angel Luis Gurrola MD - Last Filed: 12/03/22 21:57> Time: 21:57 <Angel Luis Gurrola MD - Last Filed: 12/03/22 21:57> Medications Administered Discontinued Medications Generic Name Dose Route Start Last Admin Trade Name Freq PRN Reason Stop Dose Admin Hydromorphone HCl 2 mg 12/03/22 21:45 12/03/22 22:36 Hydromorphone Hcl 2 Mg/Ml Vial IM 12/03/22 21:46 2 mg ONCE ONE Administration Protocol <Adrien Tinoco - Last Filed: 12/03/22 18:56> Medications Administered Discontinued Medications Generic Name Dose Route Start Last Admin Trade Name Freq PRN Reason Stop Dose Admin Hydromorphone HCl 2 mg 12/03/22 21:45 12/03/22 22:36 Hydromorphone Hcl 2 Mg/Ml Vial IM 12/03/22 21:46 2 mg ONCE ONE Administration Protocol <Angel Luis Gurrola MD - Last Filed: 12/03/22 21:57> Medications Administered Discontinued Medications Generic Name Dose Route Start Last Admin Trade Name Freq PRN Reason Stop Dose Admin Hydromorphone HCl 2 mg 12/03/22 21:45 12/03/22 22:36 Hydromorphone Hcl 2 Mg/Ml Vial IM 12/03/22 21:46 2 mg ONCE ONE Administration Protocol <Lisbeth Raymond MD - Last Filed: 12/03/22 23:29> Medical Decision Making Medical Decision Making MDM Narrative: Patient's x-ray showed no acute fractures. No evidence of pneumothorax no evidence of pneumonia. Pain musculoskeletal. Atypical for ACS. Patient's troponin was negative. Heart score is less than 3. Will discharge patient home. Close follow-up on an outpatient basis. History not consistent with PE <Lisbeth Raymond MD - Last Filed: 12/03/22 23:29> Differential Diagnosis Differential Diagnoses: The differential diagnosis associated with the presentation includes (ACS, rib fracture, pneumothorax, electrolyte disturbance, severe anemia, myofascial muscular pain.) <Angel Luis Gurrola MD - Last Filed: 12/03/22 21:57> Contusion, rib fracture, pneumonia, ACS, PE <Lisbeth Raymond MD - Last Filed: 12/03/22 23:29> Lab Data MDM Lab Attestation statement: I reviewed the patient's lab results. <Angel Luis Gurrola MD - Last Filed: 12/03/22 21:57> Result Diagrams: 12/03/22 19:05 12/03/22 19:05 <Adrien Tinoco - Last Filed: 12/03/22 18:56> Labs: Lab Results 12/03/22 12/03/22 12/03/22 Range/Units 19:05 19:05 19:05 WBC 10.5 (4.8-10.8) X10*3/uL RBC 5.25 (4.60-5.80) X10*6/uL Hgb 15.3 (14.0-18.0) g/dl Hct 46.6 (42.0-52.0) % MCV 88.8 (80.0-98.0) fL MCH 29.1 (27.0-33.0) pg MCHC 32.8 (31.0-36.0) g/dl RDW 13.5 (11.0-16.0) % Plt Count 308 (160-400) X10*3/uL MPV 10.1 (9.4-12.4) fL Immature Gran % (Auto) 0.4 (0.0-0.4) % Neut % (Auto) 68.6 (45-73) % Lymph % (Auto) 22.5 (20-40) % Tillman % (Auto) 7.0 (2-11) % Eos % (Auto) 0.9 (0-4) % Baso % (Auto) 0.6 (0-2) % Lymph # (Auto) 2.4 (1.2-4.9) X10*3/uL Tillman # (Auto) 0.7 (0.1-1.2) X10*3/uL Eos # (Auto) 0.1 (0.0-0.4) X10*3/uL Baso # (Auto) 0.1 (0.0-0.2) X10*3/uL Abs Immat Gran (auto) 0.04 H (0.00-0.03) X10*3/uL Absolute Neuts (auto) 7.2 (2.0-8.3) x10*3/uL Absolute Nucleated RBC 0.000 (0.0-0.012) X10*3/uL Nucleated RBC % (auto) 0.0 (0.0-0.2) /100WBC PT 12.5 (10.0-13.1) SEC INR 1.1 (0.9-1.1) APTT 35.1 (26.0-36.4) SEC Sodium 145 (135-145) mmol/L Potassium 4.4 (3.3-5.1) mmol/L Chloride 110 H (96-108) mmol/L Carbon Dioxide 28 (22-29) mmol/L Anion Gap 11 L (12-20) BUN 13 (9-16) mg/dL Creatinine 0.97 (0.5-1.4) mg/dL Estim Creat Clear Calc 88.9 Estimated GFR > 60 Random Glucose 87 (60-115) mg/dL Calcium 9.7 (8.4-10.2) mg/dL Magnesium 2.0 (1.6-2.6) mg/dL Total Bilirubin 0.5 (0.0-1.0) mg/dL AST 11 (5-37) U/L ALT 11 (0-40) U/L Alkaline Phosphatase 65 (39-117) U/L Troponin I High Sens (<3.5-35.0) ng/L Total Protein 7.1 (6.5-8.0) g/dL Albumin 4.6 (3.5-5.0) g/dL Lipase 32 (8-78) U/L 12/03/22 Range/Units 19:05 WBC (4.8-10.8) X10*3/uL RBC (4.60-5.80) X10*6/uL Hgb (14.0-18.0) g/dl Hct (42.0-52.0) % MCV (80.0-98.0) fL MCH (27.0-33.0) pg MCHC (31.0-36.0) g/dl RDW (11.0-16.0) % Plt Count (160-400) X10*3/uL MPV (9.4-12.4) fL Immature Gran % (Auto) (0.0-0.4) % Neut % (Auto) (45-73) % Lymph % (Auto) (20-40) % Tillman % (Auto) (2-11) % Eos % (Auto) (0-4) % Baso % (Auto) (0-2) % Lymph # (Auto) (1.2-4.9) X10*3/uL Tillman # (Auto) (0.1-1.2) X10*3/uL Eos # (Auto) (0.0-0.4) X10*3/uL Baso # (Auto) (0.0-0.2) X10*3/uL Abs Immat Gran (auto) (0.00-0.03) X10*3/uL Absolute Neuts (auto) (2.0-8.3) x10*3/uL Absolute Nucleated RBC (0.0-0.012) X10*3/uL Nucleated RBC % (auto) (0.0-0.2) /100WBC PT (10.0-13.1) SEC INR (0.9-1.1) APTT (26.0-36.4) SEC Sodium (135-145) mmol/L Potassium (3.3-5.1) mmol/L Chloride (96-108) mmol/L Carbon Dioxide (22-29) mmol/L Anion Gap (12-20) BUN (9-16) mg/dL Creatinine (0.5-1.4) mg/dL Estim Creat Clear Calc Estimated GFR Random Glucose (60-115) mg/dL Calcium (8.4-10.2) mg/dL Magnesium (1.6-2.6) mg/dL Total Bilirubin (0.0-1.0) mg/dL AST (5-37) U/L ALT (0-40) U/L Alkaline Phosphatase (39-117) U/L Troponin I High Sens < 2.7 (<3.5-35.0) ng/L Total Protein (6.5-8.0) g/dL Albumin (3.5-5.0) g/dL Lipase (8-78) U/L <Adrien Tinoco - Last Filed: 12/03/22 18:56> Lab Results 12/03/22 12/03/22 12/03/22 Range/Units 19:05 19:05 19:05 WBC 10.5 (4.8-10.8) X10*3/uL RBC 5.25 (4.60-5.80) X10*6/uL Hgb 15.3 (14.0-18.0) g/dl Hct 46.6 (42.0-52.0) % MCV 88.8 (80.0-98.0) fL MCH 29.1 (27.0-33.0) pg MCHC 32.8 (31.0-36.0) g/dl RDW 13.5 (11.0-16.0) % Plt Count 308 (160-400) X10*3/uL MPV 10.1 (9.4-12.4) fL Immature Gran % (Auto) 0.4 (0.0-0.4) % Neut % (Auto) 68.6 (45-73) % Lymph % (Auto) 22.5 (20-40) % Tillman % (Auto) 7.0 (2-11) % Eos % (Auto) 0.9 (0-4) % Baso % (Auto) 0.6 (0-2) % Lymph # (Auto) 2.4 (1.2-4.9) X10*3/uL Tillman # (Auto) 0.7 (0.1-1.2) X10*3/uL Eos # (Auto) 0.1 (0.0-0.4) X10*3/uL Baso # (Auto) 0.1 (0.0-0.2) X10*3/uL Abs Immat Gran (auto) 0.04 H (0.00-0.03) X10*3/uL Absolute Neuts (auto) 7.2 (2.0-8.3) x10*3/uL Absolute Nucleated RBC 0.000 (0.0-0.012) X10*3/uL Nucleated RBC % (auto) 0.0 (0.0-0.2) /100WBC PT 12.5 (10.0-13.1) SEC INR 1.1 (0.9-1.1) APTT 35.1 (26.0-36.4) SEC Sodium 145 (135-145) mmol/L Potassium 4.4 (3.3-5.1) mmol/L Chloride 110 H (96-108) mmol/L Carbon Dioxide 28 (22-29) mmol/L Anion Gap 11 L (12-20) BUN 13 (9-16) mg/dL Creatinine 0.97 (0.5-1.4) mg/dL Estim Creat Clear Calc 88.9 Estimated GFR > 60 Random Glucose 87 (60-115) mg/dL Calcium 9.7 (8.4-10.2) mg/dL Magnesium 2.0 (1.6-2.6) mg/dL Total Bilirubin 0.5 (0.0-1.0) mg/dL AST 11 (5-37) U/L ALT 11 (0-40) U/L Alkaline Phosphatase 65 (39-117) U/L Troponin I High Sens (<3.5-35.0) ng/L Total Protein 7.1 (6.5-8.0) g/dL Albumin 4.6 (3.5-5.0) g/dL Lipase 32 (8-78) U/L 12/03/22 Range/Units 19:05 WBC (4.8-10.8) X10*3/uL RBC (4.60-5.80) X10*6/uL Hgb (14.0-18.0) g/dl Hct (42.0-52.0) % MCV (80.0-98.0) fL MCH (27.0-33.0) pg MCHC (31.0-36.0) g/dl RDW (11.0-16.0) % Plt Count (160-400) X10*3/uL MPV (9.4-12.4) fL Immature Gran % (Auto) (0.0-0.4) % Neut % (Auto) (45-73) % Lymph % (Auto) (20-40) % Tillman % (Auto) (2-11) % Eos % (Auto) (0-4) % Baso % (Auto) (0-2) % Lymph # (Auto) (1.2-4.9) X10*3/uL Tillman # (Auto) (0.1-1.2) X10*3/uL Eos # (Auto) (0.0-0.4) X10*3/uL Baso # (Auto) (0.0-0.2) X10*3/uL Abs Immat Gran (auto) (0.00-0.03) X10*3/uL Absolute Neuts (auto) (2.0-8.3) x10*3/uL Absolute Nucleated RBC (0.0-0.012) X10*3/uL Nucleated RBC % (auto) (0.0-0.2) /100WBC PT (10.0-13.1) SEC INR (0.9-1.1) APTT (26.0-36.4) SEC Sodium (135-145) mmol/L Potassium (3.3-5.1) mmol/L Chloride (96-108) mmol/L Carbon Dioxide (22-29) mmol/L Anion Gap (12-20) BUN (9-16) mg/dL Creatinine (0.5-1.4) mg/dL Estim Creat Clear Calc Estimated GFR Random Glucose (60-115) mg/dL Calcium (8.4-10.2) mg/dL Magnesium (1.6-2.6) mg/dL Total Bilirubin (0.0-1.0) mg/dL AST (5-37) U/L ALT (0-40) U/L Alkaline Phosphatase (39-117) U/L Troponin I High Sens < 2.7 (<3.5-35.0) ng/L Total Protein (6.5-8.0) g/dL Albumin (3.5-5.0) g/dL Lipase (8-78) U/L <Angel Luis Gurrola MD - Last Filed: 12/03/22 21:57> Lab Results 12/03/22 12/03/22 12/03/22 Range/Units 19:05 19:05 19:05 WBC 10.5 (4.8-10.8) X10*3/uL RBC 5.25 (4.60-5.80) X10*6/uL Hgb 15.3 (14.0-18.0) g/dl Hct 46.6 (42.0-52.0) % MCV 88.8 (80.0-98.0) fL MCH 29.1 (27.0-33.0) pg MCHC 32.8 (31.0-36.0) g/dl RDW 13.5 (11.0-16.0) % Plt Count 308 (160-400) X10*3/uL MPV 10.1 (9.4-12.4) fL Immature Gran % (Auto) 0.4 (0.0-0.4) % Neut % (Auto) 68.6 (45-73) % Lymph % (Auto) 22.5 (20-40) % Tillman % (Auto) 7.0 (2-11) % Eos % (Auto) 0.9 (0-4) % Baso % (Auto) 0.6 (0-2) % Lymph # (Auto) 2.4 (1.2-4.9) X10*3/uL Tillman # (Auto) 0.7 (0.1-1.2) X10*3/uL Eos # (Auto) 0.1 (0.0-0.4) X10*3/uL Baso # (Auto) 0.1 (0.0-0.2) X10*3/uL Abs Immat Gran (auto) 0.04 H (0.00-0.03) X10*3/uL Absolute Neuts (auto) 7.2 (2.0-8.3) x10*3/uL Absolute Nucleated RBC 0.000 (0.0-0.012) X10*3/uL Nucleated RBC % (auto) 0.0 (0.0-0.2) /100WBC PT 12.5 (10.0-13.1) SEC INR 1.1 (0.9-1.1) APTT 35.1 (26.0-36.4) SEC Sodium 145 (135-145) mmol/L Potassium 4.4 (3.3-5.1) mmol/L Chloride 110 H (96-108) mmol/L Carbon Dioxide 28 (22-29) mmol/L Anion Gap 11 L (12-20) BUN 13 (9-16) mg/dL Creatinine 0.97 (0.5-1.4) mg/dL Estim Creat Clear Calc 88.9 Estimated GFR > 60 Random Glucose 87 (60-115) mg/dL Calcium 9.7 (8.4-10.2) mg/dL Magnesium 2.0 (1.6-2.6) mg/dL Total Bilirubin 0.5 (0.0-1.0) mg/dL AST 11 (5-37) U/L ALT 11 (0-40) U/L Alkaline Phosphatase 65 (39-117) U/L Troponin I High Sens (<3.5-35.0) ng/L Total Protein 7.1 (6.5-8.0) g/dL Albumin 4.6 (3.5-5.0) g/dL Lipase 32 (8-78) U/L 12/03/22 Range/Units 19:05 WBC (4.8-10.8) X10*3/uL RBC (4.60-5.80) X10*6/uL Hgb (14.0-18.0) g/dl Hct (42.0-52.0) % MCV (80.0-98.0) fL MCH (27.0-33.0) pg MCHC (31.0-36.0) g/dl RDW (11.0-16.0) % Plt Count (160-400) X10*3/uL MPV (9.4-12.4) fL Immature Gran % (Auto) (0.0-0.4) % Neut % (Auto) (45-73) % Lymph % (Auto) (20-40) % Tillman % (Auto) (2-11) % Eos % (Auto) (0-4) % Baso % (Auto) (0-2) % Lymph # (Auto) (1.2-4.9) X10*3/uL Tillman # (Auto) (0.1-1.2) X10*3/uL Eos # (Auto) (0.0-0.4) X10*3/uL Baso # (Auto) (0.0-0.2) X10*3/uL Abs Immat Gran (auto) (0.00-0.03) X10*3/uL Absolute Neuts (auto) (2.0-8.3) x10*3/uL Absolute Nucleated RBC (0.0-0.012) X10*3/uL Nucleated RBC % (auto) (0.0-0.2) /100WBC PT (10.0-13.1) SEC INR (0.9-1.1) APTT (26.0-36.4) SEC Sodium (135-145) mmol/L Potassium (3.3-5.1) mmol/L Chloride (96-108) mmol/L Carbon Dioxide (22-29) mmol/L Anion Gap (12-20) BUN (9-16) mg/dL Creatinine (0.5-1.4) mg/dL Estim Creat Clear Calc Estimated GFR Random Glucose (60-115) mg/dL Calcium (8.4-10.2) mg/dL Magnesium (1.6-2.6) mg/dL Total Bilirubin (0.0-1.0) mg/dL AST (5-37) U/L ALT (0-40) U/L Alkaline Phosphatase (39-117) U/L Troponin I High Sens < 2.7 (<3.5-35.0) ng/L Total Protein (6.5-8.0) g/dL Albumin (3.5-5.0) g/dL Lipase (8-78) U/L <Lisbeth Raymond MD - Last Filed: 12/03/22 23:29> Independent Interpretation I performed an independent interpretation of an: EKG (Normal sinus rhythm at 77 beats per minutes, normal intervals, no ST- T changes.) <Angel Luis Gurrola MD - Last Filed: 12/03/22 21:57> Plain X-Ray <Lisbeth Raymond MD - Last Filed: 12/03/22 23:29> Interpretation: Chest x-ray negative for pneumonia pneumothorax <Lisbeth Raymond MD - Last Filed: 12/03/22 23:29> Radiology Impression Discussion of test interpretation with radiology: I have reviewed the radiologist's reading. <Angel Luis Gurrola MD - Last Filed: 12/03/22 21:57> Scores Heart Score History: -0- slightly suspicious <Angel Luis Gurrola MD - Last Filed: 12/03/22 21:57> ECG: -0- normal <Angel Luis Gurrola MD - Last Filed: 12/03/22 21:57> Age: -1- >45 - <65 <Angel Luis Gurrola MD - Last Filed: 12/03/22 21:57> Risk factory: -1- 1 or 2 risk factors <Angel Luis Gurrola MD - Last Filed: 12/03/22 21:57> Troponin: -0- < or = normal limit <Angel Luis Gurrola MD - Last Filed: 12/03/22 21:57> Score: 2 <Angel Luis Gurrola MD - Last Filed: 12/03/22 21:57> 2 <Lisbeth Raymond MD - Last Filed: 12/03/22 23:29> Risk: 1.7% <Angel Luis Gurrola MD - Last Filed: 12/03/22 21:57> 1.7% <Lisbeth Raymond MD - Last Filed: 12/03/22 23:29> Discharge Plan Discharge Clinical Impression: Acute myofascial pain <Adrien Tinoco - Last Filed: 12/03/22 18:56> Patient Disposition: Home, Self-Care <Adrien Tinoco - Last Filed: 12/03/22 18:56> Instructions: Musculoskeletal Pain (ED) <Adrien Tinoco - Last Filed: 12/03/22 18:56> Prescriptions: No Action peg 3350-electrolytes [Golytely] 236-22.74-6.74 -5.86 gram recon soln 240 ml PO Q10M 1 Days Qty: 4000 0RF Rx Instructions: until fecal effluent is clear; do not exceed a total volume of 2,000 mL omeprazole 20 mg capsule,delayed release(DR/EC) 20 mg PO BID Qty: 60 2RF oxycodone 15 mg tablet 1 tab PO TID PRN (Reason: Pain) duloxetine 30 mg capsule,delayed release(DR/EC) 30 mg PO BID alprazolam 0.5 mg tablet 0.5 mg PO DAILY PRN (Reason: anxiety) trazodone 50 mg tablet 25 mg PO BEDTIME albuterol sulfate 90 mcg/actuation HFA aerosol inhaler 2 puff inhalation Q4-6H PRN (Reason: wheezing) <Adrien Tinoco - Last Filed: 12/03/22 18:56> Referrals: Mely Vasquez MD [Primary Care Provider] - <Adrien Tinoco - Last Filed: 12/03/22 18:56>
[2022-12-03 19:11] LABS: MANUAL DIFF FLAG NO
[2022-12-03 19:16] LABS: INTERNATIONAL NORM RATIO 1.1 (0.9-1.1); Prothrombin Time 12.5 SEC (10.0-13.1)
[2022-12-03 19:18] LABS: Basophils Absolute Auto 0.1 X10*3/uL (0.0-0.2); Basophils Percent Auto 0.6 % (0-2); Eosinophils Absolute Auto 0.1 X10*3/uL (0.0-0.4); Eosinophils Percent Auto 0.9 % (0-4); Hematocrit 46.6 % (42.0-52.0); Hemoglobin 15.3 g/dl (14.0-18.0); Imm Gran Abs Auto 0.04 X10*3/uL (0.00-0.03); Imm Gran Pct Auto 0.4 % (0.0-0.4); Lymphocytes Absolute Auto 2.4 X10*3/uL (1.2-4.9); Lymphocytes Percent Auto 22.5 % (20-40); Mean Corpuscular HGB Conc 32.8 g/dl (31.0-36.0); Mean Corpuscular Hemoglobin 29.1 pg (27.0-33.0); Mean Corpuscular Volume 88.8 fL (80.0-98.0); Mean Platelet Volume 10.1 fL (9.4-12.4); Monocytes Absolute Auto 0.7 X10*3/uL (0.1-1.2); Neutrophils Absolute Auto 7.2 x10*3/uL (2.0-8.3); Neutrophils Percent Auto 68.6 % (45-73); Platelet Count 308 X10*3/uL (160-400); Red Blood Count 5.25 X10*6/uL (4.60-5.80); Red Cell Distribution Width 13.5 % (11.0-16.0); White Blood Count 10.5 X10*3/uL (4.8-10.8)
[2022-12-03 19:19] LABS: Partial Thromboplastin Time 35.1 SEC (26.0-36.4)
[2022-12-03 19:25] LABS: Alanine Aminotransferase 11 U/L (0-40); Albumin Level 4.6 g/dL (3.5-5.0); Alkaline Phosphatase 65 U/L (39-117); Anion Gap 11 (12-20); Aspartate Amino Transferase 11 U/L (5-37); Bilirubin Total 0.5 mg/dL (0.0-1.0); Blood Urea Nitrogen 13 mg/dL (9-16); Calcium 9.7 mg/dL (8.4-10.2); Carbon Dioxide 28 mmol/L (22-29); Chloride 110 mmol/L (96-108); Creatinine Clr Calc Pharmacy 88.9; Estimated Glomerular Filt Rate > 60; Glucose Random 87 mg/dL (60-115); Lipase 32 U/L (8-78); Potassium 4.4 mmol/L (3.3-5.1); Sodium 145 mmol/L (135-145); Total Protein 7.1 g/dL (6.5-8.0)
[2022-12-03 19:34] LABS: Troponin-I High Sensitivity < 2.7 ng/L (<3.5-35.0)
[2022-12-03 22:11] VITALS: BP 138/100; PULSE 67; RESP 10; TEMP 36.5; O2SAT 98
[2022-12-03 22:31] VITALS: PULSE 78
[2022-12-03 22:36] VITALS: RESP 13
[2022-12-03] MEDS: HYDROmorphone HCl 2 MG/ML VIAL IM (22:36)
[2022-12-03 23:23] VITALS: BP 113/83; PULSE 64; RESP 11; TEMP 36.7; O2SAT 99
--- NOTE | 2022-12-03 23:52 | PC.NURSE ---
Discharge instructions given and explained to pt no sob able to speak in full sentences, no respiratory distress ambulates safely/independently at bedside
== END 2022-12-03 23:54 | disposition home or self-care (01) ==
PROVIDERS: Physician Assistant; Emergency Provider Emergency Medicine; PCP Family Medicine
DX: R07.89 Other chest pain (principal); R06.02 Shortness of breath; M79.10 Myalgia, unspecified site; R07.81 Pleurodynia; F17.210 Nicotine dependence, cigarettes, uncomplicated; Z71.6 Tobacco abuse counseling; Z79.899 Other long term (current) drug therapy
CPT/HCPCS: 36415; 71046; 71100; 80053; 83690; 83735; 84484; 85025; 85610; 85730; 93005; 96372; 99284; 99285; J1170

== ENCOUNTER → 2022-12-27 15:38 | Outpatient (BNVA) | payer MEDICARE, MEDICAID, SELFPAY | PROVIDERS: PCP Family Medicine; Visit Provider Nurse Practitioner | DX: K21.9 Gastro-esophageal reflux disease without esophagitis (principal); D12.6 Benign neoplasm of colon, unspecified | CPT/HCPCS: 99212 ==

== ENCOUNTER 2023-02-17 21:31 | Emergency (ER) | payer MEDICARE, SELFPAY ==
[2023-02-17 22:10] VITALS: BP 126/88; PULSE 88; RESP 18; TEMP 36.8; O2SAT 96; BMI 24.7
--- NOTE | 2023-02-18 00:15 | ED.GENADULT ---
HPI - General Adult General Chief complaint: Back Pain/Injury Stated complaint: L flank and leg pain Time Seen by Provider: 02/18/23 00:14 Source: patient and family (patient's ) Mode of arrival: ambulatory Limitations: no limitations History of Present Illness HPI narrative: Patient is a 47 year old assigned male at with a history of chronic low back pain presenting to the emergency department today with low back pain. Patient states that he has chronic low back pain for which he takes oxycodone and flexeril. 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 Patient denies any dizziness, lightheadedness, abdominal pain, nausea, vomiting, fever, chills, blurry vision, double vision, loss of vision, chest pain, difficulty breathing, shortness of breath, night sweats, pain with urination, increased urinary frequency, increased urinary urgency, blood in his urine or stool, syncope or a near syncopal episode, recent trauma or falls, bowel incontinence, bladder incontinence, bowel retention, bladder retention, or any other complaints at this time. Onset (ago): day(s) Location: back Radiation: non-radiation Severity: mild Severity scale (1-10): 3 Quality: aching and dull Pain Consistency: constant Relieving factors: none Exacerbating factors: none Associated symptoms: denies other symptoms Treatments prior to arrival: other (oxycodone and flexeril) Related Data Home Medications Medication Instructions Recorded Confirmed albuterol sulfate 90 mcg/actuation 2 puff inhalation Q4-6H PRN 12/04/21 06/07/22 aerosol inhaler wheezing alprazolam 0.5 mg tablet 0.5 mg PO DAILY PRN anxiety 12/04/21 06/07/22 duloxetine 30 mg capsule,delayed 30 mg PO BID 12/04/21 06/07/22 release trazodone 50 mg tablet 25 mg PO BEDTIME 12/04/21 10/05/22 oxycodone 15 mg tablet 1 tab PO TID PRN Pain 10/05/22 10/05/22 cetirizine 10 mg tablet 10 mg PO QAM 12/27/22 cholecalciferol (vitamin D3) 50 50 mcg PO DAILY 12/27/22 mcg (2,000 unit) capsule fluticasone propionate 220 1 puff inhalation BID 12/27/22 mcg/actuation HFA aerosol inhaler (Flovent HFA) nicotine 10 mg/mL nasal spray intranasal 12/27/22 (Nicotrol NS) omega-3 300 mg-dha 120 mg-epa 180 1 cap PO DAILY 12/27/22 mg-fish oil 1,000 mg capsule valacyclovir 500 mg tablet 500 mg PO DAILY 12/27/22 varenicline 0.5 mg tablet mg PO 12/27/22 varenicline 1 mg tablet mg PO 12/27/22 Previous Rx's Medication Instructions Recorded omeprazole 20 mg capsule,delayed 20 mg PO BID #60 caps 12/27/22 release prednisone 20 mg tablet 20 mg PO DAILY 7 days #7 tabs 02/18/23 Allergies Allergy/AdvReac Type Severity Reaction Status Date / Time amitriptyline Allergy Severe Confusion Verified 12/27/22 15:54 morphine [MORPHINE] Allergy Severe CONSTIPATION, Verified 12/27/22 15:54 stomach upset ibuprofen [From MOTRIN] AdvReac Intermediate ABD PAIN Verified 12/27/22 15:54 cyclobenzaprine AdvReac Mild DRY MOUTH Verified 12/27/22 15:54 [From FLEXERIL] influenza H1N1 Allergy Intermediate Weakness Uncoded 10/05/22 10:34 Review of Systems Constitutional: Constitutional: Reports no additional constitutional complaints, Denies chills, Denies fever(s) and Denies night sweats Eyes: Eyes: Reports no additional eye complaints, Denies blurry vision, Denies change in vision, Denies diplopia, Denies eye discharge, Denies loss of vision and Denies eye pain ENT: Denies dizziness Cardiovascular: Cardiovascular: Reports no additional cardiovascular complaints, Denies chest pain, Denies lightheadedness, Denies Loss of Consciousness and Denies dyspnea Respiratory: Respiratory: Reports no additional respiratory complaints and Denies dyspnea Gastrointestinal: Gastrointestinal: Reports no additional gastrointestinal complaints, Denies abdominal pain, Denies melena, Denies hematochezia, Denies change in bowel habits and Denies change in stool character Genitourinary: Genitourinary: Reports no additional male genitourinary complaints, Denies hematuria, Denies oliguria, Denies difficulty urinating, Denies dysuria, Denies urinary frequency, Denies urinary hesitancy, Denies urinary incontinence and Denies urinary urgency Musculoskeletal: Musculoskeletal: Reports no additional musculoskeletal complaints, Reports back pain, Denies numbness and Denies tingling Neurologic: Denies dizziness, Denies loss of vision, Denies numbness and Denies tingling Psychiatric: Psychiatric: Reports no additional psychiatric complaints Endocrine: Endocrine: Reports no additional endocrine complaints Hematologic/Lymphatic: Hematologic/Lymphatic: Reports no additional hematologic/lymphatic complaints Allergic/Immunologic: Allergic/Immunologic: Reports no additional allergic/immunologic complaints PMFSH Past Medical History Attestation statement: The following information was validated with the patient. Source: old records reviewed and nursing notes reviewed Medical History Asthma Depression with anxiety Failed spinal cord stimulator GERD (gastroesophageal reflux disease) Pelvis, multiple open fractures with disruption of pelvic [place] Surgical History H/O enucleation of left eyeball H/O pelvic surgery History of arthroscopy of right knee History of back surgery Social History Social History Are you a primary director of health care marketing to a significant other at home: No Do you presently have visiting nurse or other home services: No Alcohol intake: never Patient Tobacco Use Status: Current everyday Tobacco user Tobacco use type: Cigarette Cigarettes Per Day: 10 Advance Directives: No Advance Directives Information Provided: No Physical Exam ED Vital Signs: Vital Signs - 24 hr 02/17/23 22:10 Temperature 98.2 F Pulse Rate 88 Respiratory Rate 18 Blood Pressure 126/88 Pulse Oximetry 96 Oxygen Delivery Method Room Air BMI result Body Mass Index 24.7 Const General: cooperative, no acute distress, alert and awake Nutritional Appearance: well nourished Orientation/consciousness: patient oriented x3 Limitations: no limitations [facility] Head: Yes normal to inspection and Yes atraumatic Ears: hearing grossly normal bilaterally and external ears normal General nose exam: Normal external nose present, no nasal discharge noted and no epistaxis Face and sinus: Yes normal facial exam, No abrasion and No laceration Mouth: Normal oral and palatal mucosa present, no drooling and no muffled voice Eyes General: appearance normal, both eyes and all related structures Periorbital: periorbital findings normal Eyelids: Yes eyelids normal Conjunctivae: conjunctivae normal Pupils: Equal, round and reactive pupils present EOM: EOMs intact bilaterally Neck Neck: Yes normal visual inspection, Yes full ROM and Yes no lymphadenopathy Chest Chest palpation & inspection: normal inspection of the chest Resp Effort & Inspection: normal respiratory effort and able to speak in complete sentences Auscultation: clear to auscultation bilaterally Cardio Rate: regular rate Rhythm: regular rhythm GI Inspection: Yes normal to inspection General: Yes no CVA tenderness Back/Spine/Pelvis Back: no CVA tenderness Cervical Spine: normal cervical lordosis and cervical ROM normal Thoracic/Lumbar Spine: thoracic and lumbar spine normal to inspection and thoraco-lumbar ROM normal Neuro General: patient oriented x3 and moves all extremities Cranial nerves: Yes Equal, round and reactive pupils present Cognition (Neuro): normal cognition Motor exam (neuro): 5/5 motor strength present throughout Sensory Exam: Normal double simultaneous stimulation for sensation Coordination: [id number] test normal Extrem General: Yes normal to inspection, Yes full ROM and Yes capillary refill normal Psych Appearance: grossly normal Mental Status: mental status grossly normal Affect: normal affect Attitude: cooperative Thought process: Normal thought process present Thought content: Normal thought content present Insight: Good insight present (Psych) Medications Administered Discontinued Medications Generic Name Dose Route Start Last Admin Trade Name Freq PRN Reason Stop Dose Admin Ketorolac Tromethamine 15 mg 02/18/23 00:38 02/18/23 00:45 Ketorolac Tromethamine 15 Mg/Ml Vial IM 02/18/23 00:39 15 mg ONCE ONE Administration Prednisone 20 mg 02/18/23 00:38 02/18/23 00:46 Prednisone 20 Mg Tablet PO 02/18/23 00:39 20 mg ONCE ONE Administration Medical Decision Making Medical Decision Making [facility] Narrative: Patient is a 47 year old assigned male at with a history of chronic back pain presenting to the emergency department today with low back pain. Patient's physical exam was unremarkable. I explained my physical exam findings to the patient and the patient's . I answered all questions asked by the patient and the patient's . I stressed the importance of the patient taking his medication as prescribed. I stressed the importance of the patient following up with his primary care provider. I stressed the importance of the patient returning to the emergency department immediately if his symptoms were to worsen or if he were to develop any dizziness, shortness of breath, difficulty breathing, chest pain, blurry vision, loss of vision, nausea, vomiting, abdominal pain, fever, chills, back pain, or any other complaints. Patient verbalized agreement and understanding with this treatment plan and discharge. Differential Diagnosis Differential Diagnoses: The differential diagnosis associated with the presentation includes Chronic low back pain Acute on chronic low back pain Muscle spasm Overuse of back Independent Historian Clinical information obtained from an independent historian. History obtained from or confirmed by: Spouse (patient's provided additional history and confirmed the history provided by the patient.) Discharge Plan Discharge Clinical Impression: Sciatica Patient Disposition: Home, Self-Care Instructions: Sciatica (ED) Additional Instructions: Follow up with your primary care provider and a management development specialist. Return to the emergency department immediately if your symptoms worsen or if you develop any dizziness, shortness of breath, difficulty breathing, chest pain, blurry vision, loss of vision, nausea, vomiting, abdominal pain, fever, chills, back pain, or any other complaints. [place] un seguimiento con alfaro proveedor de atenci?n primaria y un especialista en [place] vertebral. Regrese al departamento de emergencias de inmediato si daryn s?ntomas empeoran o si presenta mareos, dificultad para respirar, dolor en el pecho, visi?n borrosa, p?rdida de la visi?n, n?useas, v?mitos, dolor abdominal, fiebre, escalofr?os, dolor de espalda o cualquier otra molestia. Prescriptions: New prednisone 20 mg tablet 20 mg PO DAILY 7 Days Qty: 7 0RF No Action oxycodone 15 mg tablet 1 tab PO TID PRN (Reason: Pain) duloxetine 30 mg capsule,delayed release(DR/EC) 30 mg PO BID alprazolam 0.5 mg tablet 0.5 mg PO DAILY PRN (Reason: anxiety) trazodone 50 mg tablet 25 mg PO BEDTIME albuterol sulfate 90 mcg/actuation HFA aerosol inhaler 2 puff inhalation Q4-6H PRN (Reason: wheezing) cetirizine 10 mg tablet 10 mg PO QAM varenicline 0.5 mg tablet PO varenicline 1 mg tablet PO Nicotrol NS 10 mg/mL spray,non-aerosol intranasal valacyclovir 500 mg tablet 500 mg PO DAILY fluticasone propionate [Flovent HFA] 220 mcg/actuation HFA aerosol inhaler 1 puff inhalation BID omega 5-nlp-vjv-fish oil 300 mg (120 mg- 180mg)-1,000 mg capsule 1 cap PO DAILY cholecalciferol (vitamin D3) 50 mcg (2,000 unit) capsule 50 mcg PO DAILY omeprazole 20 mg capsule,delayed release(DR/EC) 20 mg PO BID Qty: 60 6RF Referrals: [facility] [Provider Group] (Call to establish and follow up with a spinal specialist. Llame para establecer y hacer un seguimiento con un especialista en [place].) Mely Vasquez MD [Primary Care Provider] - Interventions: ED Discharge Assessment Last Done: 02/18/23 00:55 Discharge Date/Time: 02/18/23 00:56 Print Language: Romanian
[2023-02-18] MEDS: Ketorolac Tromethamine 15 MG/ML VIAL IM (00:45)
[2023-02-18] MEDS: predniSONE 20 MG TABLET PO (00:46)
== END 2023-02-18 00:56 | disposition home or self-care (01) ==
PROVIDERS: Emergency Provider Emergency Medicine; PCP Family Medicine
DX: M54.40 Lumbago with sciatica, unspecified side (principal); F17.210 Nicotine dependence, cigarettes, uncomplicated
CPT/HCPCS: 96372; 99283; 99284; J1885

== ENCOUNTER 2023-03-09 12:48 | Outpatient (REF) | payer MEDICARE, MEDICAID, SELFPAY ==
--- NOTE | ~2023-03-09 | MR_ITS ---
EXAMINATION: MR LUMBAR SPINE WITHOUT CONTRAST CLINICAL INFORMATION: Acute left-sided back pain/weakness lower extremity COMPARISON: MRI of lumbar spine February 2021 TECHNIQUE: MRI of the lumbar spine was obtained using routine sequences without contrast. FINDINGS: Again seen postsurgical changes status post L5 laminectomies and L5-S1 instrumented posterior fusion. The hardware is poorly assessed on MRI and would be better evaluated on CT or radiography. Normal lumbar lordosis is preserved. Unchanged minimal anterolisthesis at L5-S1. Vertebral body heights are maintained. There is no suspicious osseous lesion. Stable disc desiccation and mild disc height loss at L5-S1. Stable minimal edema along the T12 anterior upper endplate of L4 anterior upper endplate to the left of midline. Stable marrow edema of the left L4 articular pillar and pedicle, presumably degenerative/stress related. Level by level detail as follows: L1-L2: No spinal canal or neural foraminal stenosis. L2-L3: No spinal canal or neural foraminal stenosis. L3-L4: Stable minimal annular disc bulge with minimal right greater than left neural foraminal narrowing. No spinal canal stenosis. L4-L5: Stable annular disc bulge and bilateral facet arthrosis with small left greater than right facet joint effusions. No spinal canal stenosis. Unchanged moderate left and moderate right neural foraminal stenosis with mild mass effect along the exiting right L4 nerve root and encroachment upon the exiting left L4 nerve root. L5-S1: Postsurgical changes as above with stable anterolisthesis, posterior disc uncovering and osteophytic ridging. No spinal canal stenosis. The right neural foramen appears stably mildly narrowed but without mass effect on the exiting right L5 nerve root. No left neural foraminal stenosis. The conus medullaris terminates at the level of L2. The distal spinal cord is normal in appearance. . No epidural fluid collection, hematoma, or mass. No significant abnormalities of the paraspinal musculature. Limited evaluation of the intra-abdominal structures without significant abnormalities. The abdominal aorta is of normal contour and caliber. MR/MR lumbar spine wo con IMPRESSION: 1. Stable postoperative changes status post L5 laminectomies and L5-S1 instrumented posterior fusion. Stable marrow edema of the left L4 articular pillar and pedicle, presumably degenerative/stress related. 2. Stable mild spondylosis of the lumbar spine without significant spinal canal stenosis. 3. At L4-L5, stable moderate left and moderate right neural foraminal stenosis with mild mass effect along the exiting right L4 nerve root and encroachment upon the exiting left L4 nerve root.
== END 2023-03-09 12:49 | disposition home or self-care (01) ==
LOC: HO.MRI 12:48
PROVIDERS: PCP Family Medicine; Visit Provider Family Medicine
DX: M54.50 Low back pain, unspecified (principal); M54.6 Pain in thoracic spine
CPT/HCPCS: 72148

== ENCOUNTER 2023-07-02 15:53 | Outpatient (AMB) | payer MEDICARE, MEDICAID, SELFPAY ==
--- NOTE | 2023-07-02 15:57 | A.OFFVIS_ITS ---
Intake Vital Signs 07/02/23 15:58 Height 5 ft 2 in Weight 131 lb 13.383 oz BMI 24.1 BP 135/92 H Blood Pressure Location Lt brachial Position Sitting Pulse 62 Intake Visit Reasons: Follow up 6 months Intake Note: Patient presents to in office visit today in 6 months follow up of constipation. CC: Patient c/o constipation, and back pain. Denies other GI symptoms. Director Food And Beverage Required: Yes Accompanied by: Self / Same As Patient Allergies amitriptyline Allergy (Severe, Verified 07/02/23 16:12) Confusion morphine [MORPHINE] Allergy (Severe, Verified 07/02/23 16:12) CONSTIPATION, stomach upset ibuprofen [From MOTRIN] Adverse Reaction (Intermediate, Verified 07/02/23 16:12) ABD PAIN cyclobenzaprine [From FLEXERIL] Adverse Reaction (Mild, Verified 07/02/23 16:12) DRY MOUTH influenza H1N1 Allergy (Intermediate, Uncoded 05/23/23 15:52) Weakness HPI Follow up 6 months HPI Details Assessment & Plan (1) Tubular adenoma of colon: Comment: ONE TA 2022 SCOPE REPEAT 5 YEARS Code(s): D12.6 - Benign neoplasm of colon, unspecified Plan: [place] # translates per pt request He would prefer a female endoscopist next time. He is agreeable to repeating the procedure in 5 years. The procedure was well tolerated. The results were explained and the patient is agreeable to the follow-up interval as stated. The bowel pattern has returned to normal. Education was provided to tell any 1st degree relatives about their findings to be sure that they are screened by age 45. Educated that they will be put on a recall list when it is time for their repeat scope but should they move out of state or away from the hospital they will need to remember along with their primary to repeat the procedure in a timely fashion to avoid any adverse complications. He continues on his omeprazole 20mg bid with good GERD control. ROV 6 mos. (2) GERD (gastroesophageal reflux diseas e): Code(s): K21.9 - Gastro-esophageal reflux disease without esophagitis Medications: Refilled omeprazole 20 mg PO BID 60 c aps 6RF K21.9 - Gastro-eso phageal reflux dis ease without esoph agitis TODAY'S VISIT He is complaining today of CIC and back pain. This is a new complaint for us as we have only treated him for GERD in the past. He is on chronic oxycodone. His dose has not changed. Has other concerning signs or symptoms that would prompt me to investigate for thyroid disease etc.. With further discussion it turns out he has been drinking a lot more ice tea because he knows he needs to drink more fluids but he does not like the taste of plain water. They did not know that ice tea has quite a lot of caffeine in it and this could be why he is becoming dehydrated and having worse trouble with constipation. They will try to find a different drink that he tolerates. He took one of his 's senna and this worked well. We will give him an RX. Return office visit in 6 months or sooner if the constipation is not resolving well [facility] Medical History (Updated 07/02/23 @ 16:26 by MARGARET Hill) GERD (gastroesophageal reflux disease) Depression with anxiety Asthma Pelvis, multiple open fractures with disruption of pelvic [place] Failed spinal cord stimulator Surgical History (Updated 05/23/23 @ 15:52 by Kimmy Pearson) History of arthroscopy of right knee History of back surgery H/O pelvic surgery H/O enucleation of left eyeball Social History (System 05/23/23 @ 15:52 by Kimmy Pearson) Are you a primary child care provider to a significant other at home: No Do you presently have visiting nurse or other home services: No Alcohol intake: never Patient Tobacco Use Status: Current everyday Tobacco user Tobacco use type: Cigarette Cigarettes Per Day: 10 Review of Systems Const Denies fatigue, Denies fever(s), Denies night sweats, Denies poor appetite and Denies weight loss Eyes Details: glasses., eye removed left side of head Reports requires corrective lenses ENT Reports Normal hearing present, Denies dental pain, Denies dysphagia, Denies hearing loss, Denies mouth pain, Denies odynophagia, Denies throat swelling, Denies tongue swelling and Reports other (Dentition adequate) Card Reports no additional complaints Resp Reports no additional complaints GI Denies abdominal pain, Denies melena, Denies bloating, Denies hematochezia, Reports constipation, Denies GI cramping, Denies dysphagia, Denies excessive flatus, Denies early satiety, Reports heartburn, Denies diarrhea, Reports nausea, Denies odynophagia, Denies vomiting and Denies hematemesis Musc Reports back pain Skin/Breast Denies pruritus, Denies lesions, Denies rash and Denies jaundice Neuro Reports Normal hearing present and Denies Abnormal speech present Endo Denies fatigue Aller/Immun Denies throat swelling and Denies tongue swelling Physical Exam Vital Signs: Last Vital Signs Pulse 62 07/02/23 15:58 BP 135/92 H 07/02/23 15:58 BMI result Body Mass Index 24.1 Const General: cooperative, no acute distress, well developed and well groomed Nutritional Appearance: average body habitus and well nourished Orientation/consciousness: oriented to person, oriented to place and oriented to time Limitations: language barrier HEENT Head: Yes normocephalic Eyes General: dysmorphic (eye left side missing due to trauma) Pupils: Equal, round and reactive pupils present Neck Neck: Yes normal visual inspection and Yes no lymphadenopathy Thyroid: Thyroid normal Resp Effort & Inspection: normal respiratory effort and able to speak in complete sentences Auscultation: clear to auscultation bilaterally Cardio Rate: regular rate Rhythm: regular rhythm Heart sounds: Normal, physiologic split S2 sound present Peripheral pulses: radial pulses present and posterior tibial pulses present GI Inspection: No distended and No Abdominal panniculus present Palpation (GI): Soft to palpation, nontender, no guarding, not rigid and No hepatosplenomegaly present Percussion: Yes normal to percussion Auscultation: normal bowel sounds Rectal Exam - Male: Yes deferred Skin General skin exam: no rashes or lesions noted, turgor normal, skin not dry, no jaundice, No spider nevi and no striae Rashes: no rashes Nails: normal Neuro General: oriented to person, oriented to place and oriented to time Cranial nerves: Yes Equal, round and reactive pupils present and Yes Normal hearing present Speech: No Abnormal speech present Extrem General: Yes normal to inspection, No clubbing, No cyanosis and No edema Psych Appearance: grossly normal and well kempt Mental Status: mental status grossly normal Speech and movement: Normal speech and movement present Affect: normal affect Attitude: cooperative Thought process: Normal thought process present and not confabulating Thought content: Normal thought content present Insight: Limited insight present (Psych) Judgement: Limited judgement present (Psych) Assessment & Plan Assessment & Plan (1) GERD (gastroesophageal reflux disease): Code(s): K21.9 - Gastro-esophageal reflux disease without esophagitis Plan: He is complaining today of CIC and back pain. This is a new complaint for us as we have only treated him for GERD in the past. He is on chronic oxycodone. His dose has not changed. Has other concerning signs or symptoms that would prompt me to investigate for thyroid disease etc.. With further discussion it turns out he has been drinking a lot more ice tea because he knows he needs to drink more fluids but he does not like the taste of plain water. They did not know that ice tea has quite a lot of caffeine in it and this could be why he is becoming dehydrated and having worse trouble with constipation. They will try to find a different drink that he tolerates. He took one of his 's senna and this worked well. We will give him an RX. Return office visit in 6 months or sooner if the constipation is not resolving well (2) Constipation: Code(s): K59.00 - Constipation, unspecified Plan He is complaining today of CIC and back pain. This is a new complaint for us as we have only treated him for GERD in the past. He is on chronic oxycodone. His dose has not changed. Has other concerning signs or symptoms that would prompt me to investigate for thyroid disease etc.. With further discussion it turns out he has been drinking a lot more ice tea because he knows he needs to drink more fluids but he does not like the taste of plain water. They did not know that ice tea has quite a lot of caffeine in it and this could be why he is becoming dehydrated and having worse trouble with constipation. They will try to find a different drink that he tolerates. He took one of his 's senna and this worked well. We will give him an RX. Return office visit in 6 months or sooner if the constipation is not resolving well Medications: New sennosides (Senna Laxative) 17.2 mg (2 x 8.6 mg) PO BEDTIME PRN 60 tabs 6RF constipation K59.00 - Constipation, unspecified Refilled omeprazole 20 mg PO BID 60 caps 6RF K21.9 - Gastro-esophageal reflux disease without esophagitis Coding Level of Care Code Est Pt Level 3 (17248) Diagnoses GERD (gastroesophageal reflux disease) K21.9 Constipation K59.00
[2023-07-02 15:58] VITALS: BP 135/92; PULSE 62; BMI 24.1
== END 2023-07-02 16:33 | disposition home or self-care (01) ==
PROVIDERS: PCP Family Medicine; Visit Provider Nurse Practitioner
DX: K21.9 Gastro-esophageal reflux disease without esophagitis (principal); K59.00 Constipation, unspecified
CPT/HCPCS: 99213

== ENCOUNTER → 2023-07-02 15:53 | Outpatient (BNVA) | payer MEDICARE, MEDICAID, SELFPAY | PROVIDERS: PCP Family Medicine; Visit Provider Nurse Practitioner | DX: K59.00 Constipation, unspecified (principal); K21.9 Gastro-esophageal reflux disease without esophagitis | CPT/HCPCS: 99212 ==

== ENCOUNTER 2023-08-12 15:41 | Emergency (ER) | payer MEDICARE, MEDICAID, SELFPAY ==
--- NOTE | ~2023-08-12 | XR_ITS ---
EXAMINATION: XR RIBS, RIGHT CLINICAL INFORMATION: Right rib pain after injury COMPARISON: Previous chest and right rib x-rays November 2022 TECHNIQUE: 3 views of the right ribs were obtained. FINDINGS: Lungs are clear. No consolidation, pneumothorax, or pleural effusion. The cardiomediastinal silhouette and pulmonary vasculature are normal. Osseous structures are unremarkable. Ribs are intact. No fractures are identified. XR/XR ribs RT min 3V w CXR1V IMPRESSION: Unremarkable examination.
[2023-08-12 16:11] VITALS: BP 142/87; PULSE 57; RESP 16; TEMP 36.6; O2SAT 99; BMI 24.6
--- NOTE | 2023-08-12 16:14 | ED_ITS ---
HPI - General Adult General Chief complaint: General Medical Stated complaint: right side rib pain ,inj 08/10 Time Seen by Provider: 08/12/23 16:30 Source: patient Mode of arrival: ambulatory Limitations: no limitations History of Present Illness HPI narrative: Patient is a 47 year old assigned male at with a history of chronic low back pain, asthma, and missing his left eye secondary to previous trauma, prese nting to the emergency department today with right rib and hip pain. Patient states that he was moving things when a heavy box fell on his right side from the closet and now he is having pain. Patient denies any dizziness, lightheadedness, abdominal pain, nausea, vomiting, fever, chills, blurry vision, double vision, loss of vision, difficulty breathing, shortness of breath, back pain, night sweats, pain with urination, increased urinary frequency, increased urinary urgency, blood in his urine or stool, syncope or a near syncopal episode, bowel incontinence, bladder incontinence, bowel retention, bladder retention, or any other complaints at this time. Onset (ago): minute(s) Location: chest, pelvis and right Radiation: non-radiation Severity: mild Severity scale (1-10): 4 Quality: aching and dull Pain Consistency: constant Relieving factors: none Exacerbating factors: none Treatments prior to arrival: none Related Data Home Medications Medication Instructions Recorded Confirmed albuterol sulfate 90 mcg/actuation 2 puff inhalation Q4-6H PRN 12/04/21 06/07/22 aerosol inhaler wheezing alprazolam 0.5 mg tablet 0.5 mg PO DAILY PRN anxiety 12/04/21 06/07/22 trazodone 50 mg tablet 25 mg PO BEDTIME 12/04/21 10/05/22 oxycodone 15 mg tablet 1 tab PO TID PRN Pain 10/05/22 10/05/22 cetirizine 10 mg tablet 10 mg PO QAM 12/27/22 cholecalciferol (vitamin D3) 50 50 mcg PO DAILY 12/27/22 mcg (2,000 unit) capsule fluticasone propionate 220 1 puff inhalation BID 12/27/22 mcg/actuation HFA aerosol inhaler (Flovent HFA) nicotine 10 mg/mL nasal spray intranasal 12/27/22 (Nicotrol NS) omega-3 300 mg-dha 120 mg-epa 180 1 cap PO DAILY 12/27/22 mg-fish oil 1,000 mg capsule valacyclovir 500 mg tablet 500 mg PO DAILY 12/27/22 Previous Rx's Medication Instructions Recorded omeprazole 20 mg capsule,delayed 20 mg PO BID #60 caps 07/02/23 release sennosides 8.6 mg tablet (Senna 17.2 mg (2 x 8.6 mg) PO BEDTIME 07/02/23 Laxative) PRN constipation #60 tabs baclofen 5 mg tablet 5 mg PO TID #7 tabs 08/12/23 Allergies Allergy/AdvReac Type Severity Reaction Status Date / Time amitriptyline Allergy Severe Confusion Verified 08/12/23 16:16 morphine [MORPHINE] Allergy Severe CONSTIPATION, Verified 08/12/23 16:16 stomach upset ibuprofen [From MOTRIN] AdvReac Intermediate ABD PAIN Verified 08/12/23 16:16 cyclobenzaprine AdvReac Mild DRY MOUTH Verified 08/12/23 16:16 [From FLEXERIL] influenza H1N1 Allergy Intermediate Weakness Uncoded 08/12/23 16:16 Review of Systems Constitutional: Constitutional: Reports no additional constitutional complaints, Denies chills, Denies fever(s) and Denies night sweats Eyes: Eyes: Reports no additional eye complaints, Denies blurry vision, Denies change in vision, Denies diplopia, Denies eye discharge, Denies loss of vision and Denies eye pain ENT: Denies dizziness Cardiovascular: Cardiovascular: Reports no additional cardiovascular complaints, Denies chest pain, Denies lightheadedness, Denies Loss of Consciousness and Denies dyspnea Respiratory: Respiratory: Reports no additional respiratory complaints and Denies dyspnea Gastrointestinal: Gastrointestinal: Reports no additional gastrointestinal complaints, Denies abdominal pain, Denies melena, Denies hematochezia, Denies change in bowel habits and Denies change in stool character Genitourinary: Genitourinary: Reports no additional male genitourinary complaints, Denies hematuria, Denies oliguria, Denies difficulty urinating, Denies dysuria, Denies urinary frequency, Denies urinary hesitancy, Denies urinary incontinence and Denies urinary urgency Musculoskeletal: Musculoskeletal: Reports no additional musculoskeletal complaints, Denies numbness and Denies tingling Comments: right hip pain, right rib pain Neurologic: Denies dizziness, Denies loss of vision, Denies numbness and Denies tingling Psychiatric: Psychiatric: Reports no additional psychiatric complaints Endocrine: Endocrine: Reports no additional endocrine complaints Hematologic/Lymphatic: Hematologic/Lymphatic: Reports no additional hematologic/lymphatic complaints Allergic/Immunologic: Allergic/Immunologic: Reports no additional allergic/immunologic complaints PMFSH Past Medical History Attestation statement: The following information was validated with the patient. Source: old records reviewed and nursing notes reviewed Onset Date is defined in the Problem List Problems that require an onset date and time if occurred within 24 hrs of arrival to the ED Aortic Dissection and Rupture; Neurologic impairment; Cardiopulmonary Arrest; Endotracheal Intubation; Insertion or Replacement of Mechanical Circulatory Assist Device Medical History Constipation GERD (gastroesophageal reflux disease) Depression with anxiety Asthma Pelvis, multiple open fractures with disruption of pelvic [place] Failed spinal cord stimulator Surgical History History of arthroscopy of right knee History of back surgery H/O pelvic surgery H/O enucleation of left eyeball Social History Social History Are you a primary career development coordinator/teacher to a significant other at home: No Do you presently have visiting nurse or other home services: No Alcohol intake: never Patient Tobacco Use Status: Current everyday Tobacco user Tobacco use type: Cigarette Cigarettes Per Day: 10 Advance Directives: No Advance Directives Information Provided: Yes Physical Exam ED Vital Signs: Vital Signs - 24 hr 08/12/23 16:11 Temperature 97.9 F Pulse Rate 57 Respiratory Rate 16 Blood Pressure 142/87 H Pulse Oximetry 99 Oxygen Delivery Method Room Air BMI result Body Mass Index 24.6 Const General: cooperative, no acute distress, alert and awake Nutritional Appearance: well nourished Orientation/consciousness: patient oriented x3 Limitations: no limitations HENMT Head: Yes normal to inspection and Yes atraumatic Ears: hearing grossly normal bilaterally and external ears normal General nose exam: Normal external nose present, no nasal discharge noted and no epistaxis Face and sinus: Yes normal facial exam, No abrasion and No laceration Mouth: Normal oral and palatal mucosa present, no drooling and no muffled voice Eyes General: appearance normal, both eyes and all related structures Periorbital: periorbital findings normal Eyelids: Yes eyelids normal Conjunctivae: conjunctivae normal Pupils: Equal, round and reactive pupils present EOM: EOMs intact bilaterally Neck Neck: Yes normal visual inspection, Yes full ROM and Yes no lymphadenopathy Chest Chest palpation & inspection: normal inspection of the chest and normal palpation of entire chest wall Resp Effort & Inspection: normal respiratory effort and able to speak in complete sentences GI Inspection: Yes normal to inspection General: Yes no CVA tenderness Back/Spine/Pelvis Back: no CVA tenderness Cervical Spine: normal cervical lordosis and cervical ROM normal Thoracic/Lumbar Spine: thoracic and lumbar spine normal to inspection Pelvis: no pain with anterior-posterior compression Neuro General: patient oriented x3 and moves all extremities Cranial nerves: Yes Equal, round and reactive pupils present Cognition (Neuro): normal cognition Motor exam (neuro): 5/5 motor strength present throughout Sensory Exam: Normal double simultaneous stimulation for sensation Coordination: [id number] test normal Extrem General: Yes normal to inspection, Yes full ROM and Yes capillary refill normal Psych Appearance: grossly normal Mental Status: mental status grossly normal Affect: normal affect Attitude: cooperative Thought process: Normal thought process present Thought content: Normal thought content present Insight: Good insight present (Psych) Course Course Course Narrative: RME:?47 yo male hx of chronic low back pain here w/ right rib pain s/p boxes falling onto him after opening a closet 2 days ago. +pain worse w/ breathing. not on ac. no head strke or LOC. symmetric chest rise. equal breath sounds b/l. ttp of 5th-10 anterolateral ribs. no overlying bruising/deformity. plan for xr Full HPI, ROS and PE to be performed by the primary ED provider. Medications Administered Discontinued Medications Generic Name Dose Route Start Last Admin Trade Name Freq PRN Reason Stop Dose Admin Ketorolac Tromethamine 15 mg 08/12/23 18:02 08/12/23 18:08 Ketorolac Tromethamine 15 Mg/Ml Vial IM 08/12/23 18:03 15 mg ONCE ONE Administration Medical Decision Making Medical Decision Making [facility] Narrative: Patient is a 47 year old assigned male at with a history of chronic low back pain, asthma, and missing his left eye secondary to previous trauma prese nting to the emergency department today with right hip and right rib pain. Patient's physical exam was unremarkable. Patient's right rib x-ray showed no acute process. I explained my physical exam findings as well as all test results to the patient. I answered all questions asked by the patient. I stressed the importance of the patient taking his medication as prescribed. I stressed the importance of the patient following up with his primary care provider. I stressed the importance of the patient returning to the emergency department immediately if his symptoms were to worsen or if he were to develop any dizziness, shortness of breath, difficulty breathing, chest pain, blurry vision, loss of vision, nausea, vomiting, abdominal pain, fever, chills, back pain, or any other complaints. Patient verbalized agreement and understanding with this treatment plan and discharge. Differential Diagnosis Differential Diagnoses: The differential diagnosis associated with the presentation includes Chronic pain Rib contusion Rib fracture Pain Admission/Observation Consideration of admission/observation: Escalation of care including admission/observation considered Patient would have been admitted to the hospital had his work up had any findings where hospital admission was appropriate and his clinical presentation warranted hospital admission. Independent Interpretation I performed an independent interpretation of an: Plain X-Ray Interpretation: My interpretation is in agreement with the radiologist's impression of this imaging study. -- EXAMINATION: XR RIBS, RIGHT CLINICAL INFORMATION: Right rib pain after injury COMPARISON: Previous chest and right rib x-rays November 2022 TECHNIQUE: 3 views of the right ribs were obtained. FINDINGS: Lungs are clear. No consolidation, pneumothorax, or pleural effusion. The cardiomediastinal silhouette and pulmonary vasculature are normal. Osseous structures are unremarkable. Ribs are intact. No fractures are identified. XR/XR ribs RT min 3V w CXR1V IMPRESSION: Unremarkable examination. Dictated By: Breanne Reynolds MD Signed By: Electronically signed by Breanne Reynolds MD 08/12/23 4758 Radiology Impression Discussion of test interpretation with radiology: I have reviewed the radiologist's reading. Prescription Management I considered prescription management with: Pain Medication (patient prescribed pain medication) Discharge Plan Discharge Clinical Impression: Rib pain on left side Patient Disposition: Home, Self-Care Instructions: Muscle Spasm (ED) Additional Instructions: Follow up with your primary care provider. Return to the emergency department immediately if your symptoms worsen or if you develop any dizziness, shortness of breath, difficulty breathing, chest pain, blurry vision, loss of vision, nausea, vomiting, abdominal pain, fever, chills, back pain, or any other complaints. Lorena un seguimiento con alfaro proveedor de atenci?n primaria. Regrese al departamento de emergencias inmediatamente si daryn s?ntomas empeoran o si presenta mareos, dificultad para respirar, dificultad para respirar, dolor en el pecho, visi?n borrosa, p?rdida de la visi?n, n?useas, v?mitos, dolor abdominal, fiebre, escalofr?os, dolor de espalda o cualquier otras quejas. Prescriptions: New baclofen 5 mg tablet 5 mg PO TID Qty: 7 0RF No Action oxycodone 15 mg tablet 1 tab PO TID PRN (Reason: Pain) alprazolam 0.5 mg tablet 0.5 mg PO DAILY PRN (Reason: anxiety) trazodone 50 mg tablet 25 mg PO BEDTIME albuterol sulfate 90 mcg/actuation HFA aerosol inhaler 2 puff inhalation Q4-6H PRN (Reason: wheezing) cetirizine 10 mg tablet 10 mg PO QAM Nicotrol NS 10 mg/mL spray,non-aerosol intranasal valacyclovir 500 mg tablet 500 mg PO DAILY fluticasone propionate [Flovent HFA] 220 mcg/actuation HFA aerosol inhaler 1 puff inhalation BID omega 4-byg-luw-fish oil 300 mg (120 mg- 180mg)-1,000 mg capsule 1 cap PO DAILY cholecalciferol (vitamin D3) 50 mcg (2,000 unit) capsule 50 mcg PO DAILY sennosides [Senna Laxative] 8.6 mg tablet 17.2 mg PO BEDTIME PRN (Reason: constipation) Qty: 60 6RF omeprazole 20 mg capsule,delayed release(DR/EC) 20 mg PO BID Qty: 60 6RF Referrals: Mely Vasquez MD [Primary Care Provider] - Interventions: ED Discharge Assessment Last Done: 08/12/23 18:11 Discharge Date/Time: 08/12/23 18:11 Print Language: Indonesian
[2023-08-12] MEDS: Ketorolac Tromethamine 15 MG/ML VIAL IM (18:08)
== END 2023-08-12 18:11 | disposition home or self-care (01) ==
PROVIDERS: Emergency Provider Emergency Medicine; PCP Family Medicine
DX: R07.81 Pleurodynia (principal); M54.50 Low back pain, unspecified; R07.89 Other chest pain; F17.210 Nicotine dependence, cigarettes, uncomplicated; Z71.6 Tobacco abuse counseling; Z79.899 Other long term (current) drug therapy
CPT/HCPCS: 71101; 96372; 99283; 99284; J1885

== ENCOUNTER 2023-08-27 14:24 | Outpatient (REF) | payer MEDICARE, MEDICAID, SELFPAY ==
[2023-08-27 16:23] LABS: Estimated Average Glucose 94 mg/dL; Hemoglobin A1c % 4.9 % (<6.0)
[2023-08-27 16:41] LABS: Alanine Aminotransferase 12 U/L (0-40); Albumin Level 4.4 g/dL (3.5-5.0); Alkaline Phosphatase 73 U/L (39-117); Anion Gap 14 (12-20); Aspartate Amino Transferase 11 U/L (5-37); Bilirubin Total 0.4 mg/dL (0.0-1.0); Blood Urea Nitrogen 12 mg/dL (9-16); Calcium 9.6 mg/dL (8.4-10.2); Carbon Dioxide 24 mmol/L (22-29); Chloride 110 mmol/L (96-108); Cholesterol 162 mg/dL (<200); Estimated Glomerular Filt Rate > 60; Glucose Random 83 mg/dL (60-115); HDL Cholesterol 33 mg/dL (>40); LDL Cholesterol Calculated 94 mg/dL (<100); Potassium 3.9 mmol/L (3.3-5.1); Sodium 144 mmol/L (135-145); Total Protein 7.3 g/dL (6.5-8.0); Triglycerides 177 mg/dL (<150)
[2023-08-27 16:59] LABS: TSH reflex Free T4 0.55 uIU/mL (0.32-4.0)
[2023-08-27 18:00] LABS: Reflex LDLD? No
== END 2023-08-27 14:25 | disposition home or self-care (01) ==
LOC: HO.HHCL 14:24
PROVIDERS: Visit Provider Family Medicine
DX: R03.0 Elevated blood-pressure reading, without diagnosis of hypertension (principal)
CPT/HCPCS: 36415; 80053; 80061; 83036; 84443

== ENCOUNTER 2023-11-21 16:05 | Emergency (ER) | payer MEDICARE, MEDICAID, SELFPAY ==
--- NOTE | ~2023-11-21 | CT_ITS ---
EXAMINATION: CT ABDOMEN AND PELVIS WITH CONTRAST CLINICAL INFORMATION: Severe abdominal pain and tenderness COMPARISON: None available. TECHNIQUE: Multidetector volumetric images were obtained from the superior aspect of the liver through the pubic symphysis following administration 100 mL of Omnipaque 350 intravenous contrast. Sagittal and coronal reformatted images were obtained on the technologist's workstation. Oral contrast: No This CT examination was performed using dose optimization techniques as appropriate, variously including the following: *Automated exposure control *Adjustment of mA and/or kV according to patient size (this includes techniques or standardized protocols for targeted exams where dose is matched to indication/reason for exam; i.e. extremities or head) *Use of iterative reconstruction technique DLP: 355 mGy-cm FINDINGS: LUNG BASES: The visualized lung bases are unremarkable. LIVER, GALLBLADDER, AND BILIARY TREE: The liver is normal in size, shape, and attenuation. No focal hepatic lesion or biliary ductal dilatation is present. The gallbladder has a serpiginous phrygian cap but is otherwise unremarkable with no evidence of radiopaque gallstones, gallbladder wall thickening, or obvious pericholecystic inflammatory changes. PANCREAS: Unremarkable. SPLEEN: Unremarkable. ADRENAL GLANDS: Unremarkable. KIDNEYS AND URETERS: The kidneys are normal in size, shape, and attenuation. No hydronephrosis, hydroureter, or calculi seen. No perinephric stranding. BLADDER: Unremarkable. GASTROINTESTINAL TRACT: The small and large bowel are unremarkable. The appendix is unremarkable. ABDOMINAL WALL: Bilateral small inguinal hernias are seen containing fat, left greater than right. LYMPH NODES: No retroperitoneal lymphadenopathy seen. VASCULAR: Calcific and noncalcific plaque present in the infrarenal aorta without aneurysm or dissection. PELVIC VISCERA: There is moderate BPH. Seminal vesicles appear normal. OSSEOUS STRUCTURES: Unremarkable. Posterior fusion present at L5-S1. CT/CT abdomen pelvis w IV con IMPRESSION: 1. A cause for the patient's severe abdominal pain and tenderness has not been found. 2. Incidental note made of BPH and bilateral inguinal hernias containing only fat. Fleischner guidelines were followed.
--- NOTE | 2023-11-21 16:24 | ED.GENADULT ---
HPI - General Adult General Chief complaint: General Medical Stated complaint: Diaphragm swollen and w/ pain, sob Time Seen by Provider: 11/21/23 16:53 Source: patient and family Mode of arrival: ambulatory Limitations: no limitations History of Present Illness HPI narrative: 47-year-old male with a history of GERD, depression, anxiety, low back pain, asthma who presents to the ER for evaluation of severe upper abdominal pain that has been worsening for the last 3 days. Patient reports that the pain started after he helped move his doahvj-xv-htr in a bed in a rehab center. He feels like his abdomen is distended. He denies any nausea, vomiting, diarrhea. He reports the pain has been getting worse and is now very severe. He has been taking medication his has been giving him including 15 mg of oxycodone, baclofen with no relief. He has been having normal bowel movements. No urinary symptoms. He feels like his abdomen is pushing up on his chest and he feels short of breath. Pain is worse with any movement. MD complaint: Upper abdominal pain Onset (ago): day(s) (3) Location: abdomen Radiation: proximal Severity: severe Severity scale (1-10): 10 Quality: stabbing, aching and constant Pain Consistency: constant Relieving factors: immobilization Exacerbating factors: movement Associated symptoms: denies other symptoms Treatments prior to arrival: other (baclofen) Related Data Home Medications ?Medication ?Instructions ?Recorded ?Confirmed albuterol sulfate 90 mcg/actuation 2 puff inhalation Q4-6H PRN 12/04/21 06/07/22 aerosol inhaler wheezing alprazolam 0.5 mg tablet 0.5 mg PO DAILY PRN anxiety 12/04/21 06/07/22 trazodone 50 mg tablet 25 mg PO BEDTIME 12/04/21 10/05/22 oxycodone 15 mg tablet 1 tab PO TID PRN Pain 10/05/22 10/05/22 cetirizine 10 mg tablet 10 mg PO QAM 12/27/22 cholecalciferol (vitamin D3) 50 50 mcg PO DAILY 12/27/22 mcg (2,000 unit) capsule fluticasone propionate 220 1 puff inhalation BID 12/27/22 mcg/actuation HFA aerosol inhaler (Flovent HFA) nicotine 10 mg/mL nasal spray intranasal 12/27/22 (Nicotrol NS) omega-3 300 mg-dha 120 mg-epa 180 1 cap PO DAILY 12/27/22 mg-fish oil 1,000 mg capsule valacyclovir 500 mg tablet 500 mg PO DAILY 12/27/22 Previous Rx's ?Medication ?Instructions ?Recorded omeprazole 20 mg capsule,delayed 20 mg PO BID #60 caps 07/02/23 release sennosides 8.6 mg tablet (Senna 17.2 mg (2 x 8.6 mg) PO BEDTIME 07/02/23 Laxative) PRN constipation #60 tabs baclofen 5 mg tablet 5 mg PO TID #7 tabs 08/12/23 hydrocortisone acetate 25 mg 25 mg [place] BID #12 ea 11/23/23 rectal suppository (Anusol-HC) sucralfate 1 gram tablet 1 g PO TID #90 tabs 11/23/23 Allergies Allergy/AdvReac Type Severity Reaction Status Date / Time amitriptyline Allergy Severe Confusion Verified 11/22/23 21:50 morphine [MORPHINE] Allergy Severe CONSTIPATION, Verified 11/22/23 21:50 stomach upset ibuprofen [From MOTRIN] AdvReac Intermediate ABD PAIN Verified 11/22/23 21:50 cyclobenzaprine AdvReac Mild DRY MOUTH Verified 11/22/23 21:50 [From FLEXERIL] influenza H1N1 Allergy Intermediate Weakness Uncoded 11/22/23 21:50 Review of Systems Review of Systems: Yes all other systems are reviewed and are negative PMFSH Past Medical History Medical History Constipation GERD (gastroesophageal reflux disease) Depression with anxiety Asthma Pelvis, multiple open fractures with disruption of pelvic [place] Failed spinal cord stimulator Surgical History History of arthroscopy of right knee History of back surgery H/O pelvic surgery H/O enucleation of left eyeball Social History Social History Are you a primary care worker to a significant other at home: No Do you presently have visiting nurse or other home services: No Alcohol intake: never Patient Tobacco Use Status: Current everyday Tobacco user Tobacco use type: Cigarette Cigarettes Per Day: 10 Smoked in Last 30 Days: Yes Use of substances other than those prescribed or required for medical reasons: No Advance Directives: No Advance Directives Information Provided: No Do you have a plan to hurt others: No Plan Physical Exam ED Vital Signs: Vital Signs - 24 hr 11/21/23 16:28 11/21/23 20:44 11/21/23 23:02 Temperature 98.3 F 98.1 F Pulse Rate 76 74 Respiratory Rate 18 18 20 Blood Pressure 131/95 H 122/76 Pulse Oximetry 99 93 Oxygen Delivery Method Room Air Room Air 11/21/23 23:05 11/22/23 00:05 Temperature Pulse Rate 58 Respiratory Rate 18 16 Blood Pressure 142/100 H Pulse Oximetry 100 Oxygen Delivery Method Room Air BMI result Body Mass Index 24.7 Appearance: Alert. Oriented X3. appears uncomfortable, groaning Head: normocephalic, atraumatic. Eyes: Pupils equal, round and reactive to light. ENT: Pharynx normal. No tonsillar swelling or exudate. Neck: Normal inspection. Neck supple. CVS: Normal heart rate and rhythm. Pulses normal. Respiratory: No respiratory distress. Breath sounds normal. Abdomen: slightly distended, firmness in the upper epigastric area with tenderness, no palpable masses. guarding in the entire upper abdomen. Normal active +BS x4 Skin: Skin warm and dry. Normal skin color. Normal skin turgor. No rashes. Extremities: No lower extremity edema. No joint swelling. Neuro/psych: Oriented X 3. No motor deficit. No sensory deficit. CN II-XII intact. Normal speech and cognition. Course Course Course Narrative: This is a rapid medical exam: Additional HPI, ROS, PE not included below will be deferred to primary provider. Patient is a 47-year-old male presenting to the ED with complaint of upper abdominal pain/mass after helping nurses to push his father in law [facility]. Has been taking oxycodone without relief. gave some of her Baclofen also without relief. Reevaluation(s) Reevaluation #1: Patient's CT scan resulted showing no evidence of acute intra-abdominal pathology or any other acute findings to explain the patient's pain. I discussed this with the patient. He reports feeling much better currently and is requesting discharge home which I feel is appropriate. His last endoscopy was 1 year ago. I encouraged him to follow-up with his GI doctor but clinically his most likely diagnosis is an abdominal wall strain Time: 01:16 Medications Administered Discontinued Medications Generic Name Dose Route Start Last Admin Trade Name Cecilia PRN Reason Stop Dose Admin Fentanyl 50 mcg 11/21/23 22:39 11/21/23 23:02 Fentanyl Citrate/Pf 100 Mcg/2 Ml Vial IVPUSH 11/21/23 22:40 50 mcg ONCE ONE Administration Protocol Iohexol 100 ml 11/21/23 21:12 11/21/23 21:13 Iohexol 350 Mg/Ml 100 Ml Infus..Btl IV 11/21/23 21:13 100 ml ONCE ONE Administration Ketorolac Tromethamine 30 mg 11/21/23 18:33 11/21/23 18:51 Ketorolac Tromethamine 15 Mg/Ml Vial IVPUSH 11/21/23 18:34 30 mg ONCE ONE Administration Ondansetron HCl 4 mg 11/21/23 22:38 11/21/23 23:02 Ondansetron Hcl 4 Mg/2 Ml Vial IVPUSH 11/21/23 22:39 4 mg ONCE ONE Administration Medical Decision Making Medical Decision Making [facility] Narrative: 47-year-old male presents to the ER for evaluation of severe upper abdominal pain, abdominal distention for the last 3 days that has been worsening after doing some heavy lifting. No palpable hernia on examination. No vomiting to suggest an obstruction. He is in significant amount of pain and appears very uncomfortable. Pain is out of proportion to his history and clinical presentation. will obtain basic lab workup and obtain CT scan for further evaluation. Morphine and Zofran ordered for pain control. Will reassess. Signed out to Дмитрий ROBERTS who will do follow-up CT read and determine dispo. Differential Diagnosis Differential Diagnoses: The differential diagnosis associated with the presentation includes Abdominal hernia, muscle strain, pancreatitis, cholecystitis, colitis, bowel obstruction, volvulus Admission/Observation Consideration of admission/observation: Escalation of care including admission/observation considered Lab Data [facility] Lab Attestation statement: I reviewed the patient's lab results. 11/21/23 18:52 11/21/23 20:28 Labs: Lab Results 11/21/23 11/21/23 11/21/23 Range/Units 18:38 18:52 20:28 WBC 10.3 (4.8-10.8) X10*3/uL RBC 4.61 (4.60-5.80) X10*6/uL Hgb 14.3 (14.0-18.0) g/dl Hct 41.4 L (42.0-52.0) % MCV 89.8 (80.0-98.0) fL MCH 31.0 (27.0-33.0) pg MCHC 34.5 (31.0-36.0) g/dl RDW 13.5 (11.0-16.0) % Plt Count 286 (160-400) X10*3/uL MPV 10.7 (9.4-12.4) fL Immature Gran % (Auto) 0.6 H (0.0-0.4) % Neut % (Auto) 57.0 (45-73) % Lymph % (Auto) 32.2 (20-40) % [place] % (Auto) 6.8 (2-11) % Eos % (Auto) 2.6 (0-4) % Baso % (Auto) 0.8 (0-2) % Lymph # (Auto) 3.3 (1.2-4.9) X10*3/uL [place] # (Auto) 0.7 (0.1-1.2) X10*3/uL Eos # (Auto) 0.3 (0.0-0.4) X10*3/uL Baso # (Auto) 0.1 (0.0-0.2) X10*3/uL Abs Immat Gran (auto) 0.06 H (0.00-0.03) X10*3/uL Absolute Neuts (auto) 5.8 (2.0-8.3) x10*3/uL Absolute Nucleated RBC 0.000 (0.0-0.012) X10*3/uL Nucleated RBC % (auto) 0.0 (0.0-0.2) /100WBC Sodium 141 (135-145) mmol/L Potassium 5.1 D (3.3-5.1) mmol/L Chloride 112 H (96-108) mmol/L Carbon Dioxide 24 (22-29) mmol/L Anion Gap 10 L (12-20) BUN 10 (9-16) mg/dL Creatinine 0.75 (0.5-1.4) mg/dL Estim Creat Clear Calc 94.0 Estimated GFR > 60 Random Glucose 83 (60-115) mg/dL Calcium 8.2 L D (8.4-10.2) mg/dL Magnesium 2.4 (1.6-2.6) mg/dL Total Bilirubin 0.2 (0.0-1.0) mg/dL Direct Bilirubin < 0.2 (0.0-0.5) mg/dL AST 20 (5-37) U/L ALT 9 (0-40) U/L Alkaline Phosphatase 64 (39-117) U/L Total Protein 6.9 (6.5-8.0) g/dL Albumin 3.6 (3.5-5.0) g/dL Lipase 28 (8-78) U/L Urine Color Yellow Urine Appearance Clear Urine pH 6.5 (5.0-9.0) Ur Specific Warden >= 1.030 H (1.005-1.025) Urine Protein Trace (Neg-Trace) mg/dL Urine Glucose (UA) Negative (Negative) mg/dL Urine Ketones Trace (Negative) mg/dL Urine Blood Negative (Negative) Urine Nitrite Negative (Negative) Ur Leukocyte Esterase Negative (Negative) Independent Historian Clinical information obtained from an independent historian. History obtained from or confirmed by: Spouse External Record Review External record reviewed: Outpatient record, Prior outpatient labs and Prior outpatient radiology Prescription Management I considered prescription management with: Pain Medication Critical Care Time Critical Care Time Critical Care Time: Yes Total Critical Care Time: 31 Attestation: I have personally provided critical care time exclusive of time spent on separately billable procedures. Time includes review of lab data, radiology results, re-evaluation after administration of IV narcotics, and monitoring for potential decompensation. Intervention performed as documented. Discharge Plan Discharge Clinical Impression: Abdominal pain Patient Disposition: Home, Self-Care Instructions: Abdominal Pain (ED) Additional Instructions: Your workup in the ER today was reassuring. Your CT scan did not show any acute findings to explain your pain Follow-up with your primary doctor and your GI doctor Continue to use your oxycodone as needed for severe breakthrough pain Return for new or worsening symptoms Prescriptions: No Action oxycodone 15 mg tablet 1 tab PO TID PRN (Reason: Pain) baclofen 5 mg tablet 5 mg PO TID Qty: 7 0RF sucralfate 1 gram tablet 1 g PO TID Qty: 90 0RF hydrocortisone acetate [Anusol-HC] 25 mg suppository 25 mg TN BID Qty: 12 0RF alprazolam 0.5 mg tablet 0.5 mg PO DAILY PRN (Reason: anxiety) trazodone 50 mg tablet 25 mg PO BEDTIME albuterol sulfate 90 mcg/actuation HFA aerosol inhaler 2 puff inhalation Q4-6H PRN (Reason: wheezing) cetirizine 10 mg tablet 10 mg PO QAM Nicotrol NS 10 mg/mL spray,non-aerosol intranasal valacyclovir 500 mg tablet 500 mg PO DAILY fluticasone propionate [Flovent HFA] 220 mcg/actuation HFA aerosol inhaler 1 puff inhalation BID omega 0-ixp-vrb-fish oil 300 mg (120 mg- 180mg)-1,000 mg capsule 1 cap PO DAILY cholecalciferol (vitamin D3) 50 mcg (2,000 unit) capsule 50 mcg PO DAILY sennosides [Senna Laxative] 8.6 mg tablet 17.2 mg PO BEDTIME PRN (Reason: constipation) Qty: 60 6RF omeprazole 20 mg capsule,delayed release(DR/EC) 20 mg PO BID Qty: 60 6RF Interventions: ED Discharge Assessment Last Done: 11/22/23 01:26 Discharge Date/Time: 11/22/23 01:27 Print Language: Macedonian
[2023-11-21 16:28] VITALS: BP 131/95; PULSE 76; RESP 18; TEMP 36.8; O2SAT 99; BMI 24.7
[2023-11-21 18:48] LABS: Appearance Urine Clear; Color Urine Yellow; Glucose Urine UA Negative (Negative); Leukocyte Esterase Urine Negative (Negative); Nitrite Urine Negative (Negative); PH 6.5 (5.0-9.0); Specific Gravity - Urine >= 1.030 (1.005-1.025); Urine Blood Negative (Negative); Urine Ketones Trace mg/dL (Negative); Urine Protein Trace mg/dL (Neg-Trace)
[2023-11-21] MEDS: Ketorolac Tromethamine 15 MG/ML VIAL 30 MG IVPUSH (18:51)
[2023-11-21 19:02] LABS: Basophils Absolute Auto 0.1 X10*3/uL (0.0-0.2); Basophils Percent Auto 0.8 % (0-2); Eosinophils Absolute Auto 0.3 X10*3/uL (0.0-0.4); Eosinophils Percent Auto 2.6 % (0-4); Hematocrit 41.4 % (42.0-52.0); Hemoglobin 14.3 g/dl (14.0-18.0); Imm Gran Abs Auto 0.06 X10*3/uL (0.00-0.03); Imm Gran Pct Auto 0.6 % (0.0-0.4); Lymphocytes Absolute Auto 3.3 X10*3/uL (1.2-4.9); Lymphocytes Percent Auto 32.2 % (20-40); Mean Corpuscular HGB Conc 34.5 g/dl (31.0-36.0); Mean Corpuscular Volume 89.8 fL (80.0-98.0); Mean Platelet Volume 10.7 fL (9.4-12.4); Monocytes Absolute Auto 0.7 X10*3/uL (0.1-1.2); Monocytes Percent Auto 6.8 % (2-11); Neutrophils Absolute Auto 5.8 x10*3/uL (2.0-8.3); Platelet Count 286 X10*3/uL (160-400); Red Blood Count 4.61 X10*6/uL (4.60-5.80); Red Cell Distribution Width 13.5 % (11.0-16.0); White Blood Count 10.3 X10*3/uL (4.8-10.8)
[2023-11-21 19:15] LABS: MANUAL DIFF FLAG NO
[2023-11-21 20:44] VITALS: BP 122/76; PULSE 74; RESP 18; TEMP 36.7; O2SAT 93
[2023-11-21 20:46] LABS: Anion Gap 10 (12-20)
[2023-11-21 20:52] LABS: Alanine Aminotransferase 9 U/L (0-40); Albumin Level 3.6 g/dL (3.5-5.0); Alkaline Phosphatase 64 U/L (39-117); Aspartate Amino Transferase 20 U/L (5-37); Bilirubin Direct < 0.2 mg/dL (0.0-0.5); Bilirubin Total 0.2 mg/dL (0.0-1.0); Blood Urea Nitrogen 10 mg/dL (9-16); Calcium 8.2 mg/dL (8.4-10.2); Carbon Dioxide 24 mmol/L (22-29); Chloride 112 mmol/L (96-108); Estimated Glomerular Filt Rate > 60; Glucose Random 83 mg/dL (60-115); Lipase 28 U/L (8-78); Magnesium 2.4 mg/dL (1.6-2.6); Potassium 5.1 mmol/L (3.3-5.1); Sodium 141 mmol/L (135-145); Total Protein 6.9 g/dL (6.5-8.0)
[2023-11-21] MEDS: iohexoL 350 MG/ML 100 ML INFUS..BTL IV (21:13)
[2023-11-21 23:02] VITALS: RESP 20
[2023-11-21] MEDS: ondansetron HCL 4 MG/2 ML VIAL IVPUSH (23:02)
[2023-11-21] MEDS: fentaNYL citrate/PF 100 MCG/2 ML VIAL 50 MCG IVPUSH (23:02)
[2023-11-21 23:05] VITALS: BP 142/100; PULSE 58; RESP 18; O2SAT 100
[2023-11-22 00:05] VITALS: RESP 16
[2023-11-22 01:26] VITALS: BP 135/88; PULSE 83; RESP 16; TEMP 37.1; O2SAT 99
== END 2023-11-22 01:27 | disposition home or self-care (01) ==
PROVIDERS: Physician Assistant; Emergency Provider Emergency Medicine; PCP Family Medicine
DX: R10.10 Upper abdominal pain, unspecified (principal); R06.02 Shortness of breath; M54.50 Low back pain, unspecified; Z79.899 Other long term (current) drug therapy
CPT/HCPCS: 36415; 74177; 80048; 80076; 81003; 83690; 83735; 85025; 96374; 96375; 99284; J1885; J2405; J3010; Q9967

== ENCOUNTER 2023-11-22 21:38 | Emergency (ER) | payer MEDICARE, MEDICAID, SELFPAY ==
[2023-11-22 21:48] VITALS: BP 126/89; BP 146/62; PULSE 71; PULSE 72; RESP 12; TEMP 36.6; O2SAT 97; O2SAT 98; BMI 24.8
[2023-11-22 21:51] VITALS: PULSE 72; RESP 12; TEMP 36.6; O2SAT 97
--- NOTE | 2023-11-22 21:54 | ED.ABDPAIN ---
HPI - Abdominal Pain General Chief Complaint: GI Bleed Stated Complaint: upper abd pain w/ bloody stool x 3days Time Seen by Provider: 11/22/23 21:52 Source: patient Mode of arrival: ambulatory Limitations: no limitations History of Present Illness HPI narrative: Patient history of GERD with chronic low back pain was seen here yesterday for upper abdominal pain had a CT scan done which was negative labs were stable comes back at noticed slight amount of blood in the stool which was bright red blood patient never had endoscopy in the past taking Prilosec Related Data Home Medications ?Medication ?Instructions ?Recorded ?Confirmed albuterol sulfate 90 mcg/actuation 2 puff inhalation Q4-6H PRN 12/04/21 06/07/22 aerosol inhaler wheezing alprazolam 0.5 mg tablet 0.5 mg PO DAILY PRN anxiety 12/04/21 06/07/22 trazodone 50 mg tablet 25 mg PO BEDTIME 12/04/21 10/05/22 oxycodone 15 mg tablet 1 tab PO TID PRN Pain 10/05/22 10/05/22 cetirizine 10 mg tablet 10 mg PO QAM 12/27/22 cholecalciferol (vitamin D3) 50 50 mcg PO DAILY 12/27/22 mcg (2,000 unit) capsule fluticasone propionate 220 1 puff inhalation BID 12/27/22 mcg/actuation HFA aerosol inhaler (Flovent HFA) nicotine 10 mg/mL nasal spray intranasal 12/27/22 (Nicotrol NS) omega-3 300 mg-dha 120 mg-epa 180 1 cap PO DAILY 12/27/22 mg-fish oil 1,000 mg capsule valacyclovir 500 mg tablet 500 mg PO DAILY 12/27/22 Previous Rx's ?Medication ?Instructions ?Recorded omeprazole 20 mg capsule,delayed 20 mg PO BID #60 caps 07/02/23 release sennosides 8.6 mg tablet (Senna 17.2 mg (2 x 8.6 mg) PO BEDTIME 07/02/23 Laxative) PRN constipation #60 tabs baclofen 5 mg tablet 5 mg PO TID #7 tabs 08/12/23 hydrocortisone acetate 25 mg 25 mg [place] BID #12 ea 11/23/23 rectal suppository (Anusol-HC) sucralfate 1 gram tablet 1 g PO TID #90 tabs 11/23/23 Allergies Allergy/AdvReac Type Severity Reaction Status Date / Time amitriptyline Allergy Severe Confusion Verified 11/22/23 21:50 morphine [MORPHINE] Allergy Severe CONSTIPATION, Verified 11/22/23 21:50 stomach upset ibuprofen [From MOTRIN] AdvReac Intermediate ABD PAIN Verified 11/22/23 21:50 cyclobenzaprine AdvReac Mild DRY MOUTH Verified 11/22/23 21:50 [From FLEXERIL] influenza H1N1 Allergy Intermediate Weakness Uncoded 11/22/23 21:50 Review of Systems Review of Systems Yes all other systems are reviewed and are negative [facility] Past Medical History Medical History Constipation GERD (gastroesophageal reflux disease) Depression with anxiety Asthma Pelvis, multiple open fractures with disruption of pelvic [place] Failed spinal cord stimulator Surgical History History of arthroscopy of right knee History of back surgery H/O pelvic surgery H/O enucleation of left eyeball Social History Social History Are you a primary health and social care teacher to a significant other at home: No Do you presently have visiting nurse or other home services: No Alcohol intake: never Patient Tobacco Use Status: Current everyday Tobacco user Tobacco use type: Cigarette Cigarettes Per Day: 10 Smoked in Last 30 Days: Yes Use of substances other than those prescribed or required for medical reasons: No Advance Directives: No Advance Directives Information Provided: No Do you have a plan to hurt others: No Plan Physical Exam ED Vital Signs: Vital Signs - 24 hr 11/22/23 21:48 11/22/23 21:51 11/23/23 00:49 Temperature 97.8 F 97.8 F 97.8 F Pulse Rate 72 72 72 Respiratory Rate 12 12 12 Blood Pressure 126/89 126/89 Pulse Oximetry 97 97 97 Oxygen Delivery Method Room Air Room Air Room Air BMI result Body Mass Index 24.8 Appearance: Alert. Oriented X3. No acute distress. Eyes: PERRLA, No Nystagmus ENT: Pharynx normal. Oral Mucosa moist Neck: Normal inspection. Neck supple. CVS: Normal heart rate and rhythm. Pulses normal. Respiratory: No respiratory distress. Equal air entry bilateral, no wheezing/rales/rhonchi Abdomen: Soft , tenderness in epigastric. Bowel sounds are present, no mass palpable, no CVA tenderness rectal; fresh blood positive hemorrhoids palpable Skin: Skin warm and dry. Normal skin color. Normal skin turgor. Extremities: No lower extremity edema. No calf tenderness Neuro: Oriented X 3. No motor deficit. Medical Decision Making Medical Decision Making [facility] Narrative: Patient with chronic abdominal pain workup negative which was done yesterday including a CT scan does have chronic GERD along with chronic back pain taking oxycodone had a bleed for rectally with H&H stable likely hemorrhoid discharge patient home on suppository and advised take stool softener and follow with PCP Lab Data [facility] Lab Attestation statement: I reviewed the patient's lab results. Labs: Lab Results 11/22/23 Range/Units 23:10 Stool Occult Blood POSITIVE (NEGATIVE) Medications Administered Discontinued Medications Generic Name Dose Route Start Last Admin Trade Name Freq PRN Reason Stop Dose Admin Al Hydroxide/Mg Hydroxide 30 ml 11/22/23 22:43 11/22/23 23:40 Magnesium Hydrox/Alum Hydrox 30 Ml Oral.Susp PO 11/22/23 22:44 30 ml ONCE ONE Administration Lidocaine HCl 15 ml 11/22/23 22:43 11/22/23 23:40 Lidocaine Hcl Viscous 2 % 15 Ml Solution MUCOUS MEM 11/22/23 22:44 15 ml ONCE ONE Administration Discharge Plan Discharge Clinical Impression: Gastritis, Bleeding hemorrhoids Patient Disposition: Home, Self-Care Instructions: Gastritis (ED), Hemorrhoids (ED) Additional Instructions: Continue your oxycodone as prescribed by PCP Continue omeprazole for acid reflux as prescribed Sucralfate 1 tablet every 8 hours as needed before meals Rectal suppository as advised Prescriptions: New sucralfate 1 gram tablet 1 g PO TID Qty: 90 0RF hydrocortisone acetate [Anusol-HC] 25 mg suppository 25 mg [place] BID Qty: 12 0RF No Action oxycodone 15 mg tablet 1 tab PO TID PRN (Reason: Pain) baclofen 5 mg tablet 5 mg PO TID Qty: 7 0RF alprazolam 0.5 mg tablet 0.5 mg PO DAILY PRN (Reason: anxiety) trazodone 50 mg tablet 25 mg PO BEDTIME albuterol sulfate 90 mcg/actuation HFA aerosol inhaler 2 puff inhalation Q4-6H PRN (Reason: wheezing) cetirizine 10 mg tablet 10 mg PO QAM Nicotrol NS 10 mg/mL spray,non-aerosol intranasal valacyclovir 500 mg tablet 500 mg PO DAILY fluticasone propionate [Flovent HFA] 220 mcg/actuation HFA aerosol inhaler 1 puff inhalation BID omega 0-ujn-zve-fish oil 300 mg (120 mg- 180mg)-1,000 mg capsule 1 cap PO DAILY cholecalciferol (vitamin D3) 50 mcg (2,000 unit) capsule 50 mcg PO DAILY sennosides [Senna Laxative] 8.6 mg tablet 17.2 mg PO BEDTIME PRN (Reason: constipation) Qty: 60 6RF omeprazole 20 mg capsule,delayed release(DR/EC) 20 mg PO BID Qty: 60 6RF Interventions: ED Discharge Assessment Last Done: 11/23/23 00:49 Discharge Date/Time: 11/23/23 00:50 Print Language: Luxembourger
[2023-11-22 23:18] LABS: OBS Int Ctl Valid YES; OBS1 POSITIVE (NEGATIVE)
[2023-11-22] MEDS: Magnesium Hydrox/Alum Hydrox 30 ML ORAL.SUSP PO (23:40)
[2023-11-22] MEDS: Lidocaine HCl Viscous 2 % 15 ML SOLUTION MUCOUS MEM (23:40)
[2023-11-23 00:49] VITALS: BP 126/89; PULSE 72; RESP 12; TEMP 36.6; O2SAT 97
== END 2023-11-23 00:50 | disposition home or self-care (01) ==
PROVIDERS: Emergency Provider Internal Medicine
DX: K29.70 Gastritis, unspecified, without bleeding (principal); K64.9 Unspecified hemorrhoids; K62.5 Hemorrhage of anus and rectum; K59.00 Constipation, unspecified; K21.9 Gastro-esophageal reflux disease without esophagitis; F17.210 Nicotine dependence, cigarettes, uncomplicated
CPT/HCPCS: 82272; 99283; 99284

== ENCOUNTER 2023-12-02 13:01 | Outpatient (REF) | payer MEDICARE, MEDICAID, SELFPAY ==
[2023-12-06 15:48] LABS: Testosterone, Total 522 ng/dL (250-1100)
== END 2023-12-02 13:02 | disposition home or self-care (01) ==
LOC: HO.HHCL 13:01
PROVIDERS: Visit Provider Family Medicine
DX: Z12.5 Encounter for screening for malignant neoplasm of prostate (principal); N40.0 Benign prostatic hyperplasia without lower urinary tract symptoms
CPT/HCPCS: 36415; 84153; 84403; 87338

== ENCOUNTER 2023-12-12 | Outpatient (REF) | payer MEDICARE, MEDICAID, SELFPAY | END 2023-12-12 00:01 | disposition home or self-care (01) | LOC: HO.HHCL | PROVIDERS: Visit Provider Family Medicine | DX: R14.0 Abdominal distension (gaseous) (principal) | CPT/HCPCS: 87338 ==

== ENCOUNTER 2023-12-18 13:06 | Outpatient (REF) | payer MEDICARE, SELFPAY ==
--- NOTE | ~2023-12-18 | XR_ITS ---
EXAMINATION: XR RIBS, BILATERAL CLINICAL INFORMATION: Upper abdominal pain, unspecified Injury one week ago COMPARISON: None available. TECHNIQUE: PA chest and views of the bilateral ribs were obtained. FINDINGS: Lungs are clear. No consolidation, pneumothorax, or pleural effusion. The cardiomediastinal silhouette and pulmonary vasculature are normal. Osseous structures are unremarkable. Ribs are intact. No acute fractures are identified. XR/XR ribs BI min 4V w CXR1V IMPRESSION: No displaced rib fracture.
== END 2023-12-18 13:07 | disposition home or self-care (01) ==
LOC: HO.XRAY 13:06
PROVIDERS: PCP Family Medicine; Visit Provider Nurse Practitioner
DX: R10.10 Upper abdominal pain, unspecified (principal); K21.9 Gastro-esophageal reflux disease without esophagitis; K59.00 Constipation, unspecified; R07.81 Pleurodynia
CPT/HCPCS: 71111; 99212

== ENCOUNTER 2023-12-18 13:06 | Outpatient (AMB) | payer MEDICARE, MEDICAID, SELFPAY ==
--- NOTE | 2023-12-18 13:08 | MHC.OFFVIS ---
Vital Signs 12/18/23 13:09 Height 5 ft 2 in Weight 132 lb 11.492 oz BMI 24.3 BP 98/66 Blood Pressure Location Lt brachial Position Sitting Pulse 81 Intake Visit Reasons: Abd pain Intake Note: Hosea presents to in office visit today in follow up of ED visit. CC:Patient was seen in the ED on 11/20 and 11/21 with chronic abdominal pain workup was negative at that time.He also c/o chronic GERD, chronic back pain, and rectal bleeding. Per patient's states that the patient was trying to help with lifting up her dad and after that he developed abdominal pain and an inflamed abdomen. He states that he went to the ER and was told that he had ulcers. He states that the following day he was having rectal bleeding. He called EMT and was taken to the hospital. Patient also c/o abdominal bloating and pain after eating. Military Pilot Required: No Military Pilot Name: Accompanied by: Allergies amitriptyline Allergy (Severe, Verified 12/18/23 13:12) Confusion morphine [MORPHINE] Allergy (Severe, Verified 12/18/23 13:12) CONSTIPATION, stomach upset ibuprofen [From MOTRIN] Adverse Reaction (Intermediate, Verified 12/18/23 13:12) ABD PAIN cyclobenzaprine [From FLEXERIL] Adverse Reaction (Mild, Verified 12/18/23 13:12) DRY MOUTH influenza H1N1 Allergy (Intermediate, Uncoded 11/22/23 21:50) Weakness HPI HPI Abd pain: Details: Assessment & Plan (1) GERD (gastroesophageal reflux disease): Code(s): K21.9 - Gastro-esophageal reflux disease without esophagitis Plan: He is complaining today of CIC and back pain. This is a new complaint for us as we have only treated him for GERD in the past. He is on chronic oxycodone. His dose has not changed. Has other concerning signs or symptoms that would prompt me to investigate for thyroid disease etc.. With further discussion it turns out he has been drinking a lot more ice tea because he knows he needs to drink more fluids but he does not like the taste of plain water. They did not know that ice tea has quite a lot of caffeine in it and this could be why he is becoming dehydrated and having worse trouble with constipation. They will try to find a different drink that he tolerates. He took one of his 's senna and this worked well. We will give him an RX. Return office visit in 6 months or sooner if the constipation is not resolving well (2) Constipation: Code(s): K59.00 - Constipation, unspecified Plan He is complaining today of CIC and back pain. This is a new complaint for us as we have only treated him for GERD in the past. He is on chronic oxycodone. His dose has not changed. Has other concerning signs or symptoms that would prompt me to investigate for thyroid disease etc.. With further discussion it turns out he has been drinking a lot more ice tea because he knows he needs to drink more fluids but he does not like the taste of plain water. They did not know that ice tea has quite a lot of caffeine in it and this could be why he is becoming dehydrated and having worse trouble with constipation. They will try to find a different drink that he tolerates. He took one of his 's senna and this worked well. We will give him an RX. Return office visit in 6 months or sooner if the constipation is not resolving well Medications: New sennosides (Senna Laxative) 17.2 mg (2 x 8.6 mg) PO BEDTIME PRN 60 tabs 6RF constipation K59.00 - Constipation, unspecified Refilled omeprazole 20 mg PO BID 60 caps 6RF K21.9 - Gastro-esophageal reflux disease without esophagitis CORRESPONDENCE On 11/25/23 @ 09:20 Ro Fuller Wrote To ,October PT requested sooner appt for rectal bleeding, added to Sunday 11/26 ER VISIT 11/22/2023 Course Course Narrative: This is a rapid medical exam: Additional HPI, ROS, PE not included below will be deferred to primary provider. Patient is a 47-year-old male presenting to the ED with complaint of upper abdominal pain/mass after helping nurses to push his father in law in a bed at the shelter the day before yesterday. Has been taking oxycodone without relief. gave some of her Baclofen also without relief. Reevaluation(s) Reevaluation #1: Patient's CT scan resulted showing no evidence of acute intra-abdominal pathology or any other acute findings to explain the patient's pain. I discussed this with the patient. He reports feeling much better currently and is requesting discharge home which I feel is appropriate. His last endoscopy was 1 year ago. I encouraged him to follow-up with his GI doctor but clinically his most likely diagnosis is an abdominal wall strain Time: 01:16 CT ABD AND PELVIS 11/22/23 FINDINGS: LUNG BASES: The visualized lung bases are unremarkable. LIVER, GALLBLADDER, AND BILIARY TREE: The liver is normal in size, shape, and attenuation. No focal hepatic lesion or biliary ductal dilatation is present. The gallbladder has a serpiginous phrygian cap but is otherwise unremarkable with no evidence of radiopaque gallstones, gallbladder wall thickening, or obvious pericholecystic inflammatory changes. PANCREAS: Unremarkable. SPLEEN: Unremarkable. ADRENAL GLANDS: Unremarkable. KIDNEYS AND URETERS: The kidneys are normal in size, shape, and attenuation. No hydronephrosis, hydroureter, or calculi seen. No perinephric stranding. BLADDER: Unremarkable. GASTROINTESTINAL TRACT: The small and large bowel are unremarkable. The appendix is unremarkable. ABDOMINAL WALL: Bilateral small inguinal hernias are seen containing fat, left greater than right. LYMPH NODES: No retroperitoneal lymphadenopathy seen. VASCULAR: Calcific and noncalcific plaque present in the infrarenal aorta without aneurysm or dissection. PELVIC VISCERA: There is moderate BPH. Seminal vesicles appear normal. OSSEOUS STRUCTURES: Unremarkable. Posterior fusion present at L5-S1. CT/CT abdomen pelvis w IV con IMPRESSION: 1. A cause for the patient's severe abdominal pain and tenderness has not been found. 2. Incidental note made of BPH and bilateral inguinal hernias containing only fat. Laboratory Tests 12/12/23 14:00 Stool H. pylori Ag Pending Laboratory Tests 11/21/23 11/21/23 11/21/23 18:38 18:52 20:28 WBC 10.3 Estimated GFR > 60 Total Bilirubin 0.2 AST 20 ALT 9 Alkaline Phosphatase 64 Lipase 28 Urine Blood Negative Urine Nitrite Negative Ur Leukocyte Esterase Negative TODAY'S VISIT He is here today with his who is supportive. He was helping to push his father in law in a hospital bed and then started having upper abdominal bloating after eating. He presented to the ER and had a largely negative work up. He was given carafate and told he needed an EGD because he had ulcers, however he took the carafate and this was not help with the sx. He also had a BM with a large amt of blood and rectal exam in the ER and he was told he had IH. He has had no more bleeding. He noted some improvement with his benzo and with prednisone - the fact that this response to these medications and not to Carafate seems to lean more in the direction of a musculoskeletal source than ulcer disease. He had a colonoscopy last year that was normal. HE has been on omeprazole and senna in the past. He has an HP stool pending ordered by PCP but not back yet. Will get US of abd for ? hernia, xr ribs, trial simethicone, prednisone 7 days, celebrex 200mg (stomach upset with motrin). ROV 3 weeks. [facility] Medical History (Updated 12/18/23 @ 14:02 by MARGARET Hill) Rib pain on left side Constipation Colon cancer screening GERD (gastroesophageal reflux disease) Depression with anxiety Asthma Pelvis, multiple open fractures with disruption of pelvic [place] Failed spinal cord stimulator Surgical History History of arthroscopy of right knee History of back surgery H/O pelvic surgery H/O enucleation of left eyeball Social History Are you a primary customer care representative to a significant other at home: No Do you presently have visiting nurse or other home services: No Alcohol intake: never Patient Tobacco Use Status: Current everyday Tobacco user Tobacco use type: Cigarette Cigarettes Per Day: 10 Review of Systems Const Denies fatigue, Denies fever(s), Denies night sweats, Denies poor appetite and Denies weight loss ENT Reports Normal hearing present, Denies dental pain, Denies dysphagia, Denies hearing loss, Denies mouth pain, Denies odynophagia, Denies throat swelling, Denies tongue swelling and Reports other (Dentition adequate) Card Reports no additional complaints Resp Reports no additional complaints GI Details: Reports abdominal pain, Denies melena, Reports bloating, Denies hematochezia, Denies constipation, Denies GI cramping, Denies dysphagia, Denies excessive flatus, Denies early satiety, Reports heartburn, Denies diarrhea, Denies nausea, Denies odynophagia, Denies vomiting and Denies hematemesis Musc Details: Rib pain Reports back pain Skin/Breast Denies pruritus, Denies lesions, Denies rash and Denies jaundice Neuro Reports Normal hearing present and Denies Abnormal speech present Endo Denies fatigue Aller/Immun Denies throat swelling and Denies tongue swelling Physical Exam Vital Signs: Last Vital Signs Pulse 81 12/18/23 13:09 BP 98/66 12/18/23 13:09 BMI result Body Mass Index 24.3 Const General: cooperative, no acute distress, well developed and well groomed Nutritional Appearance: average body habitus and well nourished Orientation/consciousness: oriented to person, oriented to place and oriented to time Limitations: language barrier HEENT Head: Yes normocephalic and Yes atraumatic Eyes General: appearance normal, both eyes and all related structures Pupils: Equal, round and reactive pupils present Neck Neck: Yes normal visual inspection and Yes no lymphadenopathy Thyroid: Thyroid normal Chest Chest palpation & inspection: no crepitus and tenderness rib (Last floating rib right side appears swollen) Resp Effort & Inspection: normal respiratory effort and able to speak in complete sentences Auscultation: clear to auscultation bilaterally Cardio Rate: regular rate Rhythm: regular rhythm Heart sounds: Normal, physiologic split S2 sound present Peripheral pulses: radial pulses present and posterior tibial pulses present GI Inspection: No distended and No Abdominal panniculus present Palpation (GI): Soft to palpation, Tenderness to palpation present (GI) (Over left rib just to the left of midline floating rib), no guarding, not rigid and No hepatosplenomegaly present Percussion: Yes normal to percussion Auscultation: normal bowel sounds Rectal Exam - Male: Yes deferred Skin General skin exam: no rashes or lesions noted, turgor normal, skin not dry, no jaundice, No spider nevi and no striae Rashes: no rashes Nails: normal Neuro General: oriented to person, oriented to place and oriented to time Cranial nerves: Yes Equal, round and reactive pupils present and Yes Normal hearing present Speech: No Abnormal speech present Extrem General: Yes normal to inspection, No clubbing, No cyanosis and No edema Psych Appearance: grossly normal and well kempt Mental Status: mental status grossly normal Speech and movement: Normal speech and movement present Affect: normal affect Attitude: cooperative Thought process: Normal thought process present and not confabulating Thought content: Normal thought content present Insight: Limited insight present (Psych) Judgement: Limited judgement present (Psych) Results Reviewed Results Reviewed: ER VISIT 11/22/2023 Course Course Narrative: This is a rapid medical exam: Additional HPI, ROS, PE not included below will be deferred to primary provider. Patient is a 47-year-old male presenting to the ED with complaint of upper abdominal pain/mass after helping nurses to push his father in law in a bed at the shelter the day before yesterday. Has been taking oxycodone without relief. gave some of her Baclofen also without relief. Reevaluation(s) Reevaluation #1: Patient's CT scan resulted showing no evidence of acute intra-abdominal pathology or any other acute findings to explain the patient's pain. I discussed this with the patient. He reports feeling much better currently and is requesting discharge home which I feel is appropriate. His last endoscopy was 1 year ago. I encouraged him to follow-up with his GI doctor but clinically his most likely diagnosis is an abdominal wall strain Time: 01:16 CT ABD AND PELVIS 11/22/23 FINDINGS: LUNG BASES: The visualized lung bases are unremarkable. LIVER, GALLBLADDER, AND BILIARY TREE: The liver is normal in size, shape, and attenuation. No focal hepatic lesion or biliary ductal dilatation is present. The gallbladder has a serpiginous phrygian cap but is otherwise unremarkable with no evidence of radiopaque gallstones, gallbladder wall thickening, or obvious pericholecystic inflammatory changes. PANCREAS: Unremarkable. SPLEEN: Unremarkable. ADRENAL GLANDS: Unremarkable. KIDNEYS AND URETERS: The kidneys are normal in size, shape, and attenuation. No hydronephrosis, hydroureter, or calculi seen. No perinephric stranding. BLADDER: Unremarkable. GASTROINTESTINAL TRACT: The small and large bowel are unremarkable. The appendix is unremarkable. ABDOMINAL WALL: Bilateral small inguinal hernias are seen containing fat, left greater than right. LYMPH NODES: No retroperitoneal lymphadenopathy seen. VASCULAR: Calcific and noncalcific plaque present in the infrarenal aorta without aneurysm or dissection. PELVIC VISCERA: There is moderate BPH. Seminal vesicles appear normal. OSSEOUS STRUCTURES: Unremarkable. Posterior fusion present at L5-S1. CT/CT abdomen pelvis w IV con IMPRESSION: 1. A cause for the patient's severe abdominal pain and tenderness has not been found. 2. Incidental note made of BPH and bilateral inguinal hernias containing only fat. Laboratory Tests 12/12/23 14:00 Stool H. pylori Ag Pending Laboratory Tests 11/21/23 11/21/23 11/21/23 18:38 18:52 20:28 WBC 10.3 Estimated GFR > 60 Total Bilirubin 0.2 AST 20 ALT 9 Alkaline Phosphatase 64 Lipase 28 Urine Blood Negative Urine Nitrite Negative Ur Leukocyte Esterase Negative Assessment & Plan Assessment & Plan (1) GERD (gastroesophageal reflux disease): Code(s): K21.9 - Gastro-esophageal reflux disease without esophagitis Category: Medical (2) Constipation: Code(s): K59.00 - Constipation, unspecified Category: Medical (3) Upper abdominal pain: Code(s): R10.10 - Upper abdominal pain, unspecified Category: Medical (4) Rib pain on left side: Code(s): R07.81 - Pleurodynia Category: Medical Plan He is here today with his who is supportive. He was helping to push his father in law in a hospital bed and then started having upper abdominal bloating after eating. He presented to the ER and had a largely negative work up. He was given carafate and told he needed an EGD because he had ulcers, however he took the carafate and this was not help with the sx. He also had a BM with a large amt of blood and rectal exam in the ER and he was told he had IH. He has had no more bleeding. He noted some improvement with his benzo and with prednisone - the fact that this response to these medications and not to Carafate seems to lean more in the direction of a musculoskeletal source than ulcer disease. He had a colonoscopy last year that was normal. HE has been on omeprazole and senna in the past. He has an HP stool pending ordered by PCP but not back yet. Will get US of [facility] for ? hernia, xr ribs, trial simethicone, prednisone 7 days, celebrex 200mg (stomach upset with motrin). ROV 3 weeks. Orders: Orders US abdomen complete Today R10.10 - Upper abdominal pain, unspecified EGD with Hernández - GI Use Only Today R10.10 - Upper abdominal pain, unspecified Medications: New prednisone 20 mg PO DAILY 7 tabs 0RF 7 days R07.81 - Pleurodynia celecoxib (Celebrex) 200 mg PO DAILY 30 caps 3RF R07.81 - Pleurodynia simethicone after meals 180 mg PO QID 120 caps 3RF 30 days On Hold sucralfate Hold Comment: Doctor's Order 1 g PO TID 90 tabs 0RF Coding Level of Care Code Est Pt Level 4 (62228) Diagnoses GERD (gastroesophageal reflux disease) K21.9 Constipation K59.00 Upper abdominal pain R10.10 Rib pain on left side R07.81
[2023-12-18 13:09] VITALS: BP 98/66; PULSE 81; BMI 24.3
== END 2023-12-18 14:05 | disposition home or self-care (01) ==
PROVIDERS: PCP Family Medicine; Visit Provider Nurse Practitioner
DX: K21.9 Gastro-esophageal reflux disease without esophagitis (principal); K59.00 Constipation, unspecified; R10.10 Upper abdominal pain, unspecified; R07.81 Pleurodynia
CPT/HCPCS: 99214

== ENCOUNTER 2024-01-09 10:26 | Outpatient (REF) | payer MEDICARE, SELFPAY ==
--- NOTE | ~2024-01-09 | US_ITS ---
EXAMINATION: US ABDOMEN COMPLETE CLINICAL INFORMATION: Upper abdominal pain after pushing bed, rule out hernia. COMPARISON: CT abdomen from 11/21/2023 TECHNIQUE: Real-time imaging of the abdominal viscera. FINDINGS: PANCREAS: Normal. ABDOMINAL AORTA: The proximal, mid, and distal segments are normal in caliber. INFERIOR VENA CAVA: Visualized portions are normal. LIVER: Normal. The liver is normal in size. The liver contour is normal. Parenchymal echogenicity is normal. No focal hepatic lesion. There is no intrahepatic biliary duct dilatation seen. GALLBLADDER: Normal. The gallbladder is physiologically distended without evidence of stones, sludge, polyps, wall thickening or pericholecystic fluid. COMMON BILE DUCT: Normal in caliber measuring 0.4 cm in diameter. RIGHT KIDNEY: Normal. No hydronephrosis. No renal calculi or focal parenchymal lesions. The kidney measures 9.7 cm in maximum dimension. LEFT KIDNEY: Normal. No hydronephrosis. No renal calculi or focal parenchymal lesions. The kidney measures 9.2 cm in maximum dimension. SPLEEN: Normal. The spleen measures 8.2 cm in maximum dimension. FREE FLUID: None. Area of pain evaluate for possible hernia and there is no herniations present US/US abdomen complete IMPRESSION: Normal study
== END 2024-01-09 10:27 | disposition home or self-care (01) ==
LOC: HO.US 10:26
PROVIDERS: PCP Family Medicine; Visit Provider Nurse Practitioner
DX: R10.10 Upper abdominal pain, unspecified (principal)
CPT/HCPCS: 76700

== ENCOUNTER 2024-01-23 14:46 | Outpatient (AMB) | payer MEDICARE, MEDICAID, SELFPAY ==
--- NOTE | 2024-01-23 14:50 | MHC.OFFVIS ---
Intake Visit Reasons: BPH Intake Note: New Patient presents today for initial visit to establish treatment for : BPH Urology Medications: none Allergies to Antibiotic: none Blood Thinner: none PVR: 13ml's Accompanied by: Unknown Allergies amitriptyline Allergy (Severe, Verified 01/23/24 14:51) Confusion morphine [MORPHINE] Allergy (Severe, Verified 01/23/24 14:51) CONSTIPATION, stomach upset ibuprofen [From MOTRIN] Adverse Reaction (Intermediate, Verified 01/23/24 14:51) ABD PAIN cyclobenzaprine [From FLEXERIL] Adverse Reaction (Mild, Verified 01/23/24 14:51) DRY MOUTH influenza H1N1 Allergy (Intermediate, Uncoded 01/23/24 14:51) Weakness HPI Comments Details: Hosea is here for evaluation for enlarged prostate. He complains of weak urinary stream and nocturia. He also has complaints of erectile dysfunction, not able to maintain an erection. Discussed trial of tamsulosin. Will check hormone levels, including free and total testosterone and PSA screening. [facility] Medical History Rib pain on left side Constipation Colon cancer screening GERD (gastroesophageal reflux disease) Depression with anxiety Asthma Pelvis, multiple open fractures with disruption of pelvic [place] Failed spinal cord stimulator Surgical History History of arthroscopy of right knee History of back surgery H/O pelvic surgery H/O enucleation of left eyeball Social History Are you a primary career development specialist to a significant other at home: No Do you presently have visiting nurse or other home services: No Alcohol intake: never Patient Tobacco Use Status: Current everyday Tobacco user Tobacco use type: Cigarette Cigarettes Per Day: 10 Review of Systems Const All systems reviewed & are unremarkable except as noted in HPI and below Reports no additional complaints Eyes Reports no additional complaints ENT Reports no additional complaints Card Reports no additional complaints Resp Reports no additional complaints GI Reports no additional complaints Reports as per HPI Musc Reports no additional complaints Skin/Breast Reports system reviewed and no additional complaints, except as documented Neuro Reports no additional complaints Psych Reports no additional complaints Endo Reports no additional complaints Lenin/Lymph Reports no additional complaints Aller/Immun Reports no additional complaints Physical Exam Const General: healthy appearing, no acute distress and well developed Nutritional Appearance: overweight Orientation/consciousness: patient oriented x3 HEENT Head: Yes normocephalic and Yes atraumatic Eyes Conjunctivae: conjunctivae normal Neck Neck: Yes normal visual inspection Chest Chest palpation & inspection: normal inspection of the chest Resp Effort & Inspection: normal respiratory effort Cardio Rate: regular rate GI Inspection: Yes normal to inspection Palpation (GI): Soft to palpation Skin General skin exam: no rashes or lesions noted Neuro General: patient oriented x3 Extrem General: No pedal edema Psych Appearance: grossly normal Affect: normal affect Office Procedures Post Void Residual Post Residual Void Post Void Residual (PVR): 13 [id number]-[id number] Void Residual by ultrasound Results AMB Urinalysis, Automated UA Leukoctes 0 Judie/uL Last Edit by [employer] on 01/23/24 15:01 UA Nitrite Negative Last Edit by [employer] on 01/23/24 15:01 UA Urobilinogen 0.2 mg/dL Last Edit by [employer] on 01/23/24 15:01 UA Protein 15 mg/dL Last Edit by [employer] on 01/23/24 15:01 UA pH 6.0 Last Edit by [employer] on 01/23/24 15:01 UA Blood 0 Deangelo/uL Last Edit by [employer] on 01/23/24 15:01 UA Specific [place] 1.020 Last Edit by [employer] on 01/23/24 15:01 UA Ketone Negative Last Edit by [employer] on 01/23/24 15:01 UA Bilirubin 0 mg/dL Last Edit by [employer] on 01/23/24 15:01 UA Glucose 0 mg/dL Last Edit by [employer] on 01/23/24 15:01 Quality Reporting (2019) Benign Prostatic Hyperplasia ([facility] 771) AUA symptom score: 30 Quality of life due to urinary symptoms: If you were to spend the rest of your life with your urinary condition the way it is now, how would you feel about that?: Unhappy Results Reviewed Results Reviewed: Laboratory Last Values Urine pH (Auto) 6.0 01/23/24 14:53 Specific [place] (Auto) 1.020 01/23/24 14:53 Urine Protein (Auto) 15 mg/dL 01/23/24 14:53 Glucose (UA)(Auto) 0 mg/dL 01/23/24 14:53 Urine Ketones (Auto) Negative 01/23/24 14:53 Urine Blood (Auto) 0 Deangelo/uL 01/23/24 14:53 Urine Nitrite (Auto) Negative 01/23/24 14:53 Urine Bilirubin (Auto) 0 mg/dL 01/23/24 14:53 Urine Urobilinogen (Auto) 0.2 mg/dL 01/23/24 14:53 Leukocyte Esterase (Auto) 0 Judie/uL 01/23/24 14:53 Date of Service: 11/21/23 EXAMINATION: CT ABDOMEN AND PELVIS WITH CONTRAST CLINICAL INFORMATION: Severe abdominal pain and tenderness COMPARISON: None available. TECHNIQUE: Multidetector volumetric images were obtained from the superior aspect of the liver through the pubic symphysis following administration 100 mL of Omnipaque 350 intravenous contrast. Sagittal and coronal reformatted images were obtained on the technologist's workstation. Oral contrast: No This CT examination was performed using dose optimization techniques as appropriate, variously including the following: *Automated exposure control *Adjustment of mA and/or kV according to patient size (this includes techniques or standardized protocols for targeted exams where dose is matched to indication/reason for exam; i.e. extremities or head) *Use of iterative reconstruction technique DLP: 355 mGy-cm FINDINGS: LUNG BASES: The visualized lung bases are unremarkable. LIVER, GALLBLADDER, AND BILIARY TREE: The liver is normal in size, shape, and attenuation. No focal hepatic lesion or biliary ductal dilatation is present. The gallbladder has a serpiginous phrygian cap but is otherwise unremarkable with no evidence of radiopaque gallstones, gallbladder wall thickening, or obvious pericholecystic inflammatory changes. PANCREAS: Unremarkable. SPLEEN: Unremarkable. ADRENAL GLANDS: Unremarkable. KIDNEYS AND URETERS: The kidneys are normal in size, shape, and attenuation. No hydronephrosis, hydroureter, or calculi seen. No perinephric stranding. BLADDER: Unremarkable. GASTROINTESTINAL TRACT: The small and large bowel are unremarkable. The appendix is unremarkable. ABDOMINAL WALL: Bilateral small inguinal hernias are seen containing fat, left greater than right. LYMPH NODES: No retroperitoneal lymphadenopathy seen. VASCULAR: Calcific and noncalcific plaque present in the infrarenal aorta without aneurysm or dissection. PELVIC VISCERA: There is moderate BPH. Seminal vesicles appear normal. OSSEOUS STRUCTURES: Unremarkable. Posterior fusion present at L5-S1. IMPRESSION: 1. A cause for the patient's severe abdominal pain and tenderness has not been found. 2. Incidental note made of BPH and bilateral inguinal hernias containing only fat. Assessment & Plan Assessment & Plan (1) BPH loc w urin obs/LUTS: Code(s): N40.1 - Benign prostatic hyperplasia with lower urinary tract symptoms Category: Medical (2) Erectile dysfunction: Code(s): N52.9 - Male erectile dysfunction, unspecified Category: Medical Plan Tamsulosin, testosterone levels Orders: Orders AMB Urinalysis Automated 01/23/24 Z13.9 - Encounter for screening, unspecified AMB Post Void Residual by ultrasound 01/23/24 Z13.9 - Encounter for screening, unspecified Medications: New tamsulosin (Flomax) 0.4 mg PO BEDTIME 30 caps 4RF Patient Instructions: The patient had an opportunity to ask questions regarding treatment plan. The patient expressed understanding and agreement with the above treatment plan. The patient is aware they should contact our office by phone for worsening of their current condition or the appearance of new symptoms. Compliance is encouraged with any medications and followup testing that is ordered. It is a privilege to be allowed the opportunity to participate in the urologic care of your patient. If you have any questions or concerns regarding treatment for the above conditions please do not hesitate to contact me. The office telephone contact is [phone]. This note is constructed in part using voice recognition software. While every effort has been made to ensure accuracy personal carer errors may have been included. Yours sincerely, Rita Edwards MD Coding Level of Care Code New Pt Level 4 (79766) Diagnoses BPH loc w urin obs/LUTS N40.1 Erectile dysfunction N52.9 CPT Codes Post Residual Void - PVR CPT Code: 35127-Tssx Void Residual by ultrasound ([id number]) AUA Symptom Score AUA Incomplete emptying - It does not feel like I empty my bladder all the way.: 5 - Almost always Frequency - I have to go again less than two hours after I finish urinating.: 5 - Almost always Intermittency - I stop and start again several times when I urinate.: 5 - Almost always Urgency - It is hard to wait when I have to urinate.: 4 - More than half the time Weak stream - I have a weak urinary stream.: 3 - About half the time Straining - I have to push or strain to begin urination.: 3 - About half the time Nocturia - I get up to urinate after I go to bed until the time I get up in the morning.: 5 time or more AUA Symptom Score: 30 Quality of life due to urinary symptoms: If you were to spend the rest of your life with your urinary condition the way it is now, how would you feel about that?: Unhappy Source: Tuan FERGUSON, Joanna PEREZ Jr, O'Harrison MP, et al, and the Measurement Committee of the [employer]. The [employer] symptom index for benign prostatic hyperplasia. J Urol. 1992; 148: 1531-9974. Copyright 1992 [employer]
== END 2024-01-23 15:41 | disposition home or self-care (01) ==
PROVIDERS: PCP Family Medicine; Visit Provider Urology
DX: N40.1 Benign prostatic hyperplasia with lower urinary tract symptoms (principal); N52.9 Male erectile dysfunction, unspecified
CPT/HCPCS: 99204

== ENCOUNTER → 2024-01-23 14:46 | Outpatient (BNVA) | payer MEDICARE, MEDICAID, SELFPAY | PROVIDERS: PCP Family Medicine; Visit Provider Urology | DX: N40.1 Benign prostatic hyperplasia with lower urinary tract symptoms (principal); N13.8 Other obstructive and reflux uropathy; N52.1 Erectile dysfunction due to diseases classified elsewhere | CPT/HCPCS: 51798; 81003; 99202 ==

== ENCOUNTER 2024-03-03 15:00 | Outpatient (AMB) | payer MEDICARE, SELFPAY ==
--- NOTE | 2024-03-03 15:02 | MHC.OFFVIS ---
Vital Signs 03/03/24 15:07 Height 5 ft 2 in Weight 174 lb 2.643 oz BMI 31.9 BP 141/98 H Blood Pressure Location Lt brachial Position Sitting Pulse 67 Intake Visit Reasons: Follow up US Intake Note: Hosea presents in the office as a follow up US. CC: Here today for results of the US - pains in the stomach that comes and goes when he eats. He states he has bloating that comes and goes as well. Rivet Tosser Required: Yes Allergies amitriptyline Allergy (Severe, Verified 03/31/24 13:44) Confusion morphine [MORPHINE] Allergy (Severe, Verified 03/31/24 13:44) CONSTIPATION, stomach upset ibuprofen [From MOTRIN] Adverse Reaction (Intermediate, Verified 03/31/24 13:44) ABD PAIN cyclobenzaprine [From FLEXERIL] Adverse Reaction (Mild, Verified 03/31/24 13:44) DRY MOUTH influenza H1N1 Allergy (Intermediate, Uncoded 03/31/24 13:44) Weakness HPI HPI Follow up US: Details: Assessment & Plan (1) GERD (gastroesophageal reflux disease): Code(s): K21.9 - Gastro-esophageal reflux disease without esophagitis Category: Medical (2) Constipation: Code(s): K59.00 - Constipation, unspecified Category: Medical (3) Upper abdominal pain: Code(s): R10.10 - Upper abdominal pain, unspecified Category: Medical (4) Rib pain on left side: Code(s): R07.81 - Pleurodynia Category: Medical Plan He is here today with his who is supportive. He was helping to push his father in law in a hospital bed and then started having upper abdominal bloating after eating. He presented to the ER and had a largely negative work up. He was given carafate and told he needed an EGD because he had ulcers, however he took the carafate and this was not help with the sx. He also had a BM with a large amt of blood and rectal exam in the ER and he was told he had IH. He has had no more bleeding. He noted some improvement with his benzo and with prednisone - the fact that this response to these medications and not to Carafate seems to lean more in the direction of a musculoskeletal source than ulcer disease. He had a colonoscopy last year that was normal. HE has been on omeprazole and senna in the past. He has an HP stool pending ordered by PCP but not back yet. Will get US of abd for ? hernia, xr ribs, trial simethicone, prednisone 7 days, celebrex 200mg (stomach upset with motrin). ROV 3 weeks. Orders: Orders US abdomen complete Today R10.10 - Upper abdominal pain, unspecified EGD with Hernández - GI Use Only Today R10.10 - Upper abdominal pain, unspecified Medications: New prednisone 20 mg PO DAILY 7 tabs 0RF 7 days R07.81 - Pleurodynia celecoxib (Celebrex) 200 mg PO DAILY 30 caps 3RF R07.81 - Pleurodynia simethicone after meals 180 mg PO QID 120 caps 3RF 30 days On Hold sucralfate Hold Comment: Doctor's Order 1 g PO TID 90 tabs 0RF X-RAY OF THE RIBS 01/02/24 FINDINGS: Lungs are clear. No consolidation, pneumothorax, or pleural effusion. The cardiomediastinal silhouette and pulmonary vasculature are normal. Osseous structures are unremarkable. Ribs are intact. No acute fractures are identified. XR/XR ribs BI min 4V w CXR1V IMPRESSION: No displaced rib fracture. ULTRASOUND OF THE ABDOMEN 01/09/24 FINDINGS: PANCREAS: Normal. ABDOMINAL AORTA: The proximal, mid, and distal segments are normal in caliber. INFERIOR VENA CAVA: Visualized portions are normal. LIVER: Normal. The liver is normal in size. The liver contour is normal. Parenchymal echogenicity is normal. No focal hepatic lesion. There is no intrahepatic biliary duct dilatation seen. GALLBLADDER: Normal. The gallbladder is physiologically distended without evidence of stones, sludge, polyps, wall thickening or pericholecystic fluid. COMMON BILE DUCT: Normal in caliber measuring 0.4 cm in diameter. RIGHT KIDNEY: Normal. No hydronephrosis. No renal calculi or focal parenchymal lesions. The kidney measures 9.7 cm in maximum dimension. LEFT KIDNEY: Normal. No hydronephrosis. No renal calculi or focal parenchymal lesions. The kidney measures 9.2 cm in maximum dimension. SPLEEN: Normal. The spleen measures 8.2 cm in maximum dimension. FREE FLUID: None. Area of pain evaluate for possible hernia and there is no herniations present US/US abdomen complete IMPRESSION: Normal study EGD BIOPSY TODAY'S VISIT Mongolian # translates per pt request. He has been having upper abd pain with bloating after eating. Still, the pain has not returned as severely as he had it and at that time is responded to prednisone and Celebrex. He had one other bad flair when he drank a little shot of ETOH that his brother in law insisted on and this caused pain - but this has since resolved. He was never contacted regarding the EGD, so I send another note. For now we will continue the omeprazole, senna and simethicone as the latter has helped with the bloating in that it is not as severe are prior. ROV 3 mos. [facility] Medical History Screening PSA (prostate specific antigen) Rib pain on left side Constipation Colon cancer screening GERD (gastroesophageal reflux disease) Depression with anxiety Asthma Pelvis, multiple open fractures with disruption of pelvic [place] Failed spinal cord stimulator Surgical History History of arthroscopy of right knee History of back surgery H/O pelvic surgery H/O enucleation of left eyeball Social History Are you a primary manager of care to a significant other at home: No Do you presently have visiting nurse or other home services: No Alcohol intake: never Patient Tobacco Use Status: Current everyday Tobacco user Tobacco use type: Cigarette Cigarettes Per Day: 10 Review of Systems Const Denies fatigue, Denies fever(s), Denies night sweats, Denies poor appetite and Denies weight loss Eyes Details: glasses, glass eye Reports requires corrective lenses ENT Reports Normal hearing present, Denies dental pain, Denies dysphagia, Denies hearing loss, Denies mouth pain, Denies odynophagia, Denies throat swelling, Denies tongue swelling and Reports other (Dentition adequate) Card Reports no additional complaints Resp Reports no additional complaints GI Details: Reports abdominal pain, Denies melena, Denies bloating, Denies hematochezia, Reports constipation, Denies GI cramping, Denies dysphagia, Denies excessive flatus, Denies early satiety, Reports heartburn, Denies diarrhea, Denies nausea, Denies odynophagia, Denies vomiting and Denies hematemesis Skin/Breast Denies pruritus, Denies lesions, Denies rash and Denies jaundice Neuro Reports Normal hearing present and Denies Abnormal speech present Endo Denies fatigue Aller/Immun Denies throat swelling and Denies tongue swelling Physical Exam Vital Signs: Last Vital Signs Pulse 67 03/03/24 15:07 BP 141/98 H 03/03/24 15:07 BMI result Body Mass Index 31.9 Const General: cooperative, no acute distress, well developed and well groomed Nutritional Appearance: well nourished and obese Orientation/consciousness: oriented to person, oriented to place and oriented to time Limitations: language barrier HEENT Head: Yes normocephalic and Yes atraumatic Eyes General: appearance normal, both eyes and all related structures Pupils: Equal, round and reactive pupils present Neck Neck: Yes normal visual inspection and Yes no lymphadenopathy Thyroid: Thyroid normal Resp Effort & Inspection: normal respiratory effort and able to speak in complete sentences Auscultation: clear to auscultation bilaterally Cardio Rate: regular rate Rhythm: regular rhythm Heart sounds: Normal, physiologic split S2 sound present Peripheral pulses: radial pulses present and posterior tibial pulses present GI Inspection: No distended and No Abdominal panniculus present Palpation (GI): Soft to palpation, nontender, no guarding, not rigid and No hepatosplenomegaly present Percussion: Yes normal to percussion Auscultation: normal bowel sounds Rectal Exam - Male: Yes deferred Skin General skin exam: no rashes or lesions noted, turgor normal, skin not dry, no jaundice, No spider nevi and no striae Rashes: no rashes Nails: normal Neuro General: oriented to person, oriented to place and oriented to time Cranial nerves: Yes Equal, round and reactive pupils present and Yes Normal hearing present Speech: No Abnormal speech present Extrem General: Yes normal to inspection, No clubbing, No cyanosis and No edema Psych Appearance: grossly normal and well kempt Mental Status: mental status grossly normal Speech and movement: Normal speech and movement present Affect: normal affect Attitude: cooperative Thought process: Normal thought process present and not confabulating Thought content: Normal thought content present Insight: Limited insight present (Psych) Judgement: Limited judgement present (Psych) Results Reviewed Results Reviewed: X-RAY OF THE RIBS 01/02/24 FINDINGS: Lungs are clear. No consolidation, pneumothorax, or pleural effusion. The cardiomediastinal silhouette and pulmonary vasculature are normal. Osseous structures are unremarkable. Ribs are intact. No acute fractures are identified. XR/XR ribs BI min 4V w CXR1V IMPRESSION: No displaced rib fracture. ULTRASOUND OF THE ABDOMEN 01/09/24 FINDINGS: PANCREAS: Normal. ABDOMINAL AORTA: The proximal, mid, and distal segments are normal in caliber. INFERIOR VENA CAVA: Visualized portions are normal. LIVER: Normal. The liver is normal in size. The liver contour is normal. Parenchymal echogenicity is normal. No focal hepatic lesion. There is no intrahepatic biliary duct dilatation seen. GALLBLADDER: Normal. The gallbladder is physiologically distended without evidence of stones, sludge, polyps, wall thickening or pericholecystic fluid. COMMON BILE DUCT: Normal in caliber measuring 0.4 cm in diameter. RIGHT KIDNEY: Normal. No hydronephrosis. No renal calculi or focal parenchymal lesions. The kidney measures 9.7 cm in maximum dimension. LEFT KIDNEY: Normal. No hydronephrosis. No renal calculi or focal parenchymal lesions. The kidney measures 9.2 cm in maximum dimension. SPLEEN: Normal. The spleen measures 8.2 cm in maximum dimension. FREE FLUID: None. Area of pain evaluate for possible hernia and there is no herniations present US/US abdomen complete IMPRESSION: Normal study Assessment & Plan Assessment & Plan (1) Upper abdominal pain: Code(s): R10.10 - Upper abdominal pain, unspecified Category: Medical (2) Rib pain on left side: Code(s): R07.81 - Pleurodynia Category: Medical (3) GERD (gastroesophageal reflux disease): Code(s): K21.9 - Gastro-esophageal reflux disease without esophagitis Category: Medical (4) Constipation: Code(s): K59.00 - Constipation, unspecified Category: Medical Plan Mongolian # translates per pt request. He has been having upper abd pain with bloating after eating. Still, the pain has not returned as severely as he had it and at that time is responded to prednisone and Celebrex. He had one other bad flair when he drank a little shot of ETOH that his brother in law insisted on and this caused pain - but this has since resolved. He was never contacted regarding the EGD, so I send another note. For now we will continue the omeprazole, senna and simethicone as the latter has helped with the bloating in that it is not as severe are prior. ROV 3 mos. Coding Level of Care Code Est Pt Level 3 (53112) Diagnoses Upper abdominal pain R10.10 Rib pain on left side R07.81 GERD (gastroesophageal reflux disease) K21.9 Constipation K59.00
[2024-03-03 15:07] VITALS: BP 141/98; PULSE 67; BMI 31.9
== END 2024-03-03 15:49 | disposition home or self-care (01) ==
PROVIDERS: PCP Family Medicine; Visit Provider Nurse Practitioner
DX: R10.10 Upper abdominal pain, unspecified (principal); R07.81 Pleurodynia; K21.9 Gastro-esophageal reflux disease without esophagitis; K59.00 Constipation, unspecified
CPT/HCPCS: 99213

== ENCOUNTER → 2024-03-03 15:00 | Outpatient (BNVA) | payer MEDICARE, SELFPAY | PROVIDERS: PCP Family Medicine; Visit Provider Nurse Practitioner | DX: K21.9 Gastro-esophageal reflux disease without esophagitis (principal); K59.00 Constipation, unspecified; R10.10 Upper abdominal pain, unspecified; R07.81 Pleurodynia | CPT/HCPCS: 99212 ==

== ENCOUNTER 2024-03-10 10:18 | Day surgery (SDC) | payer MEDICARE, SELFPAY ==
--- NOTE | 2024-03-09 13:19 | P.CONAN_ITS ---
Documented by User: Sandrine Owens NP 03/09/24 13:21 HPI - Anesthesia Eval Consult details Narrative: 48yo M for Upper Endoscopy PMFSH Active Problems Active Problems: All Active Problems Erectile dysfunction (Acute) BPH loc w urin obs/LUTS (Acute) Rib pain on left side (Acute) Upper abdominal pain (Acute) Constipation (Acute) Tubular adenoma of colon (Acute) One eye-mod/oth-blind (Acute) GERD (gastroesophageal reflux disease) (Acute) Herpes simplex (Acute) Depression with anxiety (Acute) Chronic low back pain (Acute) Lumbar degenerative disc disease (Acute) Smoker (Acute) Asthma (Acute) Past Medical History Medical History Screening PSA (prostate specific antigen) Rib pain on left side Constipation Colon cancer screening GERD (gastroesophageal reflux disease) Depression with anxiety Asthma Pelvis, multiple open fractures with disruption of pelvic [place] Failed spinal cord stimulator Surgical History Surgical History History of arthroscopy of right knee History of back surgery H/O pelvic surgery H/O enucleation of left eyeball Social History Social History Are you a primary acute care physician to a significant other at home: No Do you presently have visiting nurse or other home services: No Alcohol intake: never Patient Tobacco Use Status: Current everyday Tobacco user Tobacco use type: Cigarette Cigarettes Per Day: 10 Are you DNR?: No Advance Directives: No Advance Directives Information Provided: Yes Meds Allergies Allergy/AdvReac Type Severity Reaction Status Date / Time amitriptyline Allergy Severe Confusion Verified 03/03/24 15:10 morphine [MORPHINE] Allergy Severe CONSTIPATION, Verified 03/03/24 15:10 stomach upset ibuprofen [From MOTRIN] AdvReac Intermediate ABD PAIN Verified 03/03/24 15:10 cyclobenzaprine AdvReac Mild DRY MOUTH Verified 03/03/24 15:10 [From FLEXERIL] influenza H1N1 Allergy Intermediate Weakness Uncoded 03/03/24 15:10 Home Medications ?Medication ?Instructions ?Recorded ?Confirmed ?Last Taken ?Type albuterol sulfate 90 mcg/actuation 2 puff inhalation Q4-6H PRN 12/04/21 06/07/22 Unknown History aerosol inhaler wheezing alprazolam 0.5 mg tablet 0.5 mg PO DAILY PRN anxiety 12/04/21 06/07/22 03/10/24 History cetirizine 10 mg tablet 10 mg PO QAM 12/27/22 Unknown History cholecalciferol (vitamin D3) 50 50 mcg PO DAILY 12/27/22 Unknown History mcg (2,000 unit) capsule fluticasone propionate 220 1 puff inhalation BID 12/27/22 Unknown History mcg/actuation HFA aerosol inhaler (Flovent HFA) valacyclovir 500 mg tablet 500 mg PO DAILY 12/27/22 Unknown History prazosin 1 mg capsule 1 mg PO BEDTIME 12/18/23 Unknown History Exam Pertinent Lab Results Pertinent Lab Results: Laboratory Tests 11/21/23 11/21/23 18:52 20:28 WBC 10.3 Hgb 14.3 Hct 41.4 L Plt Count 286 Sodium 141 Potassium 5.1 D Chloride 112 H Carbon Dioxide 24 BUN 10 Creatinine 0.75 Assessment and Plan Assessment Anesthesia Assessment: Chart Reviewed Documented by User: Ashley Anderson MD 03/10/24 11:03 [facility] Past Medical History Medical History Screening PSA (prostate specific antigen) Rib pain on left side Constipation Colon cancer screening GERD (gastroesophageal reflux disease) Depression with anxiety Asthma Pelvis, multiple open fractures with disruption of pelvic [place] Failed spinal cord stimulator Family History Family history of problems with anesthesia: No Surgical History Surgical History History of arthroscopy of right knee History of back surgery H/O pelvic surgery H/O enucleation of left eyeball History of Problems with Anesthesia: No Social History Social History Are you a primary acute care physician to a significant other at home: No Do you presently have visiting nurse or other home services: No Alcohol intake: never Patient Tobacco Use Status: Current everyday Tobacco user Tobacco use type: Cigarette Cigarettes Per Day: 10 Are you DNR?: No Advance Directives: No Advance Directives Information Provided: Yes Meds Allergies Allergy/AdvReac Type Severity Reaction Status Date / Time amitriptyline Allergy Severe Confusion Verified 03/03/24 15:10 morphine [MORPHINE] Allergy Severe CONSTIPATION, Verified 03/03/24 15:10 stomach upset ibuprofen [From MOTRIN] AdvReac Intermediate ABD PAIN Verified 03/03/24 15:10 cyclobenzaprine AdvReac Mild DRY MOUTH Verified 03/03/24 15:10 [From FLEXERIL] influenza H1N1 Allergy Intermediate Weakness Uncoded 03/03/24 15:10 Home Medications ?Medication ?Instructions ?Recorded ?Confirmed ?Last Taken ?Type albuterol sulfate 90 mcg/actuation 2 puff inhalation Q4-6H PRN 12/04/21 06/07/22 Unknown History aerosol inhaler wheezing alprazolam 0.5 mg tablet 0.5 mg PO DAILY PRN anxiety 12/04/21 06/07/22 03/10/24 History cetirizine 10 mg tablet 10 mg PO QAM 12/27/22 Unknown History cholecalciferol (vitamin D3) 50 50 mcg PO DAILY 12/27/22 Unknown History mcg (2,000 unit) capsule fluticasone propionate 220 1 puff inhalation BID 12/27/22 Unknown History mcg/actuation HFA aerosol inhaler (Flovent HFA) valacyclovir 500 mg tablet 500 mg PO DAILY 12/27/22 Unknown History prazosin 1 mg capsule 1 mg PO BEDTIME 12/18/23 Unknown History Exam Airway Mallampati Class: II TM Dist: >3cm Neck ROM: Full Heart: rrr Lungs: cta Assessment and Plan Assessment Anesthesia Assessment: Anesthesia Plan Discussed Final Anesthetic Review Family History of Problems with Anesthesia: No History of Problems with Anesthesia: No NPO: Yes ASA Class: III Final Preanesthetic Review: No Changes in Pt Med Stat, Meds/Allgs Chart Review ed, Consent Obtained/Reviewed and Anes Risks/Benef Reviewed Patient Risk: Intermediate Procedure Risk: Low Anesthetic Plan Anesthetic Plan: MAC: Disposition: Standard PACU
[2024-03-10 10:07] VITALS: BMI 31.9
[2024-03-10 10:26] VITALS: BP 138/76; PULSE 63; RESP 18; TEMP 36.9; O2SAT 97
[2024-03-10] MEDS: Lactated Ringers 1,000 ML 100 ML IVCONT (10:48)
--- NOTE | 2024-03-10 10:55 | MHC.SHP ---
Pre-Procedural Eval Section A - 24 Hr Update-Section A only Date of Service: 03/10/24 Section B - Complete if H&P > 30 days Chief Complaint: Upper abdominal pain, unspecified Relevant Family History (Specify if Yes): No Relevant Social History: Tobacco Use Present Medications: see Short Stay Collaborative assessment Medical History: Significant History (Screening PSA (prostate specific antigen) Rib pain on left side Constipation Colon cancer screening GERD (gastroesophageal reflux disease) Depression with anxiety Asthma Pelvis, multiple open fractures with disruption of pelvic [place] Failed spinal cord stimulator) History of Previous Operations: Relevant previous surgery/procedure and date(s) ( History of arthroscopy of right knee History of back surgery H/O pelvic surgery H/O enucleation of left eyeball) Allergies: Allergies Allergy/AdvReac Type Severity Reaction Status Date / Time amitriptyline Allergy Severe Confusion Verified 03/03/24 15:10 morphine [MORPHINE] Allergy Severe CONSTIPATION, Verified 03/03/24 15:10 stomach upset ibuprofen [From MOTRIN] AdvReac Intermediate ABD PAIN Verified 03/03/24 15:10 cyclobenzaprine AdvReac Mild DRY MOUTH Verified 03/03/24 15:10 [From FLEXERIL] influenza H1N1 Allergy Intermediate Weakness Uncoded 03/03/24 15:10 Review of Systems Sugical H&P ROS: Negative: Constitution, Cardiovascular, Respiratory, Neurological, Psychiatric, Hem-Onc, Allergic/Immunologic, Gastrointestinal, Genitourinary, Musculoskeletal, Integumentary, Endocrine and Eyes/Ears/Nose/Throat Exam Surgical H&P Exam: Normal: HEENT, Normal: Heart, Normal: Lungs, Normal: Extremities, Normal: Abdomen, Normal: Skin and Normal: Neurological Plan Diagnosis/Plan: Unchanged I have reviewed the history and physical and performed a pertinent physical examination on my patient. No changes have occurred unless specified. Time Spent With Patient Time: Total time managing care of this patient today ____ minutes.
--- NOTE | 2024-03-10 11:46 | W.PM.OPN ---
Operative Note Operative Note Date of Service: 03/10/24 Narrative: Procedure Description: EGD Indication: epigastric pain Anesthesia: MAC FLEXIBLE TRANSORAL UPPER GASTROINTESTINAL ENDOSCOPY UPPER ENDOSCOPY Consent: Indications for the procedure and potential complications of bleeding, perforation, reaction to medications and missed diagnosis were discussed with the patient and informed consent was obtained. Instrument: Olympus GIF H 190 J mid size upper endoscope Monitoring: Vital signs and clinical assessment, continuous EKG monitoring, Pulse oximetry, Carbon Dioxide monitoring and blood pressure monitoring were done throughout the procedure. Procedure: The patient was placed in the left lateral decubitis position and pre-procedure medications were administered and a bite block was placed. The endoscope was inserted into the mouth and advanced under direct vision to the third part of duodenum. A careful inspection was made as the upper endoscope was withdrawn including a retroflexed examination of the proximal stomach; Findings and interventions are described below. Findings: Larynx:normal Esophagus: GE junction at 37 cm, diaphragm hiatus at 40 cm, normal mucosa, bx taken from distal esophagus, 3 cm sliding hiatal hernia noted Stomach: patchy erythema . Biopsies were obtained. Grade 2 flap valve on retroflexed examination of the cardia. Duodenum: Normal bulb and descending duodenum, bx taken Intervention: Biopsies as noted above, Impression/Findings: gastritis hiatal hernia -small PLAN: cont with PPI GERD precautions avoid food triggers
[2024-03-10 11:54] VITALS: BP 121/94; PULSE 81; RESP 16; TEMP 36.1; O2SAT 94
[2024-03-10 12:12] VITALS: BP 131/94; PULSE 79; RESP 18; TEMP 36.2; O2SAT 100
== END 2024-03-10 12:29 | disposition home or self-care (01) ==
PROVIDERS: PCP Family Medicine; Visit Provider Internal Medicine Gastroenterology
PROC: 0DJ08ZZ Inspection of Upper Intestinal Tract, Via Natural or Artificial Opening Endoscopic (ICD-10-PCS; CPT 43235; principal; 2024-03-10 16:40)
DX: R10.10 Upper abdominal pain, unspecified (principal); K29.50 Unspecified chronic gastritis without bleeding; K44.9 Diaphragmatic hernia without obstruction or gangrene; K21.9 Gastro-esophageal reflux disease without esophagitis; R07.81 Pleurodynia; K59.00 Constipation, unspecified; J45.909 Unspecified asthma, uncomplicated; F41.8 Other specified anxiety disorders; Z79.899 Other long term (current) drug therapy; K40.90 Unilateral inguinal hernia, without obstruction or gangrene, not specified as recurrent; Z88.5 Allergy status to narcotic agent; Z88.6 Allergy status to analgesic agent; Z88.8 Allergy status to other drugs, medicaments and biological substances; Z98.890 Other specified postprocedural states
CPT/HCPCS: 43239; 88305; 88342; J2250; J2704

== ENCOUNTER → 2024-03-10 10:18 | Outpatient (BNV) | payer MEDICARE, SELFPAY | PROVIDERS: PCP Family Medicine; Visit Provider Internal Medicine Gastroenterology | DX: K29.70 Gastritis, unspecified, without bleeding (principal) | CPT/HCPCS: 43239 ==

== ENCOUNTER 2024-03-17 15:01 | Emergency (ER) | payer MEDICARE, SELFPAY ==
[2024-03-17 15:20] VITALS: BP 142/86; PULSE 92; O2SAT 99
--- NOTE | 2024-03-17 15:20 | ED.GENADULT ---
HPI - General Adult General Chief complaint: Back Pain/Injury Stated complaint: L FLANK PAIN,H/O HERNIA PER EMS Time Seen by Provider: 03/18/24 05:14 Source: patient Mode of arrival: EMS Limitations: no limitations History of Present Illness ED Provider: Dr. Alfie Carlos HPI narrative: 48-year-old male with a history of GERD, depression, asthma, who presents emergency department for evaluation of lower back pain with radiculopathy down the right leg. Patient states that last 03/13/2024 (5 days prior) he was working on his sister's car for proximally 2 hours. He states that he was bent over the car he was also lifting parts out of the car. He states that he did not feel bad until the next day when he developed bilateral lower back pain right greater than left. The pain is been constant since then he describes it as a ?electric shock pain? that is 10/10 at its worst. The pain is worse with movement. The pain does radiate down the posterior aspect of his right leg down to his toes. He denied any weakness or loss of bowel or bladder control. He denied fever, chills. He denies injection drug use. Patient states he does have chronic pain and he has been taking oxycodone 15 mg 3 times a day and Tylenol without any relief his discomfort. Pain got worse prior to coming to the emergency department. Patient states that he also has a new hernia and is scheduled to follow-up with Dr. Hobson. Patient states he is having more pain in his hernia area and he points to his left lower quadrant Related Data Home Medications ?Medication ?Instructions ?Recorded ?Confirmed albuterol sulfate 90 mcg/actuation 2 puff inhalation Q4-6H PRN 12/04/21 06/07/22 aerosol inhaler wheezing alprazolam 0.5 mg tablet 0.5 mg PO DAILY PRN anxiety 12/04/21 06/07/22 cetirizine 10 mg tablet 10 mg PO QAM 12/27/22 cholecalciferol (vitamin D3) 50 50 mcg PO DAILY 12/27/22 mcg (2,000 unit) capsule fluticasone propionate 220 1 puff inhalation BID 12/27/22 mcg/actuation HFA aerosol inhaler (Flovent HFA) valacyclovir 500 mg tablet 500 mg PO DAILY 12/27/22 prazosin 1 mg capsule 1 mg PO BEDTIME 12/18/23 Previous Rx's ?Medication ?Instructions ?Recorded omeprazole 20 mg capsule,delayed 20 mg PO BID #60 caps 07/02/23 release tamsulosin 0.4 mg capsule (Flomax) 0.4 mg PO BEDTIME #30 caps 01/23/24 methocarbamol 750 mg tablet 750 mg PO TID PRN Muscle pain and 03/18/24 spasm #15 tabs prednisone 20 mg tablet 60 mg (3 x 20 mg) PO DAILY 5 days 03/18/24 #15 tabs Allergies Allergy/AdvReac Type Severity Reaction Status Date / Time amitriptyline Allergy Severe Confusion Verified 03/17/24 15:30 morphine [MORPHINE] Allergy Severe CONSTIPATION, Verified 03/17/24 15:30 stomach upset ibuprofen [From MOTRIN] AdvReac Intermediate ABD PAIN Verified 03/17/24 15:30 cyclobenzaprine AdvReac Mild DRY MOUTH Verified 03/17/24 15:30 [From FLEXERIL] influenza H1N1 Allergy Intermediate Weakness Uncoded 03/03/24 15:10 Review of Systems Review of Systems: Yes all other systems are reviewed and are negative [facility] Past Medical History [facility] Narrative: Social history: Patient denies alcohol and drug use. He does smoke cigarettes. Medical History Screening PSA (prostate specific antigen) Rib pain on left side Constipation Colon cancer screening GERD (gastroesophageal reflux disease) Depression with anxiety Asthma Pelvis, multiple open fractures with disruption of pelvic [place] Failed spinal cord stimulator Surgical History History of arthroscopy of right knee History of back surgery H/O pelvic surgery H/O enucleation of left eyeball Social History Social History Are you a primary career services officer to a significant other at home: No Do you presently have visiting nurse or other home services: No Alcohol intake: never Patient Tobacco Use Status: Current everyday Tobacco user Tobacco use type: Cigarette Cigarettes Per Day: 10 Smoked in Last 30 Days: Yes Use of substances other than those prescribed or required for medical reasons: No Advance Directives: No Advance Directives Information Provided: No Do you have a plan to hurt others: No Plan Physical Exam ED Vital Signs: Vital Signs - 24 hr 03/17/24 15:26 03/17/24 22:01 03/18/24 00:09 Temperature 98.6 F 98.6 F 98.6 F Pulse Rate 72 63 65 Respiratory Rate 18 19 17 Blood Pressure 131/103 H 132/97 H 137/95 H Pulse Oximetry 98 97 98 Oxygen Delivery Method Room Air Room Air Room Air 03/18/24 02:00 03/18/24 04:00 Temperature 97.8 F 98.0 F Pulse Rate 56 65 Respiratory Rate 14 16 Blood Pressure 140/93 H 137/101 H Pulse Oximetry 99 97 Oxygen Delivery Method Room Air Room Air BMI result Body Mass Index 23.8 Vital signs revealed an elevated blood pressure otherwise were unremarkable. 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 Patient has a left groin hernia which is easily reducible and there is mild to moderate tenderness over the hernia. Back: Patient has no point tenderness of his vertebrae but he does have bilateral paraspinal muscle tenderness in the lumbar sacral area right greater than left with spasm of these muscles, has positive straight leg raises bilaterally Extremities: no deformities, moves all extremities symmetrically Neuro: Awake, alert, oriented, normal speech, cranial nerves intact, moves all extremities symmetrically Psych: Pleasant, cooperative Course Course Course Narrative: RME, this is a rapid medical exam performed by Дмитрий Tinoco please refer to primary provider for complete H&P- 48 year old male presents for evaluation of right lower back pain that has been worsening over the last 4 days. The pain started after doing mechanical work on his car. His pain radiates to his right lower extremity. He is ambulatory with some pain. The patient takes Oxycodone 15mg q8h at home for pain. He is also complaining of pain in my hernia on the left lower side. Medications Administered Discontinued Medications Generic Name Dose Route Start Last Admin Trade Name Cecilia PRN Reason Stop Dose Admin Hydromorphone HCl 1 mg 03/18/24 04:02 03/18/24 04:10 Hydromorphone Hcl 1 Mg/Ml Syringe IVPUSH 03/18/24 04:03 1 mg ONCE STA Administration Protocol Methocarbamol 750 mg 03/18/24 05:14 03/18/24 05:55 Methocarbamol 750 Mg Tablet PO 03/18/24 05:15 750 mg ONCE ONE Administration Prednisone 60 mg 03/18/24 05:14 03/18/24 05:54 Prednisone 20 Mg Tablet PO 03/18/24 05:15 60 mg ONCE ONE Administration Medical Decision Making Medical Decision Making [facility] Narrative: 48-year-old male with a history of GERD, depression, asthma, who presents emergency department for evaluation of lower back pain with radiculopathy down the right leg x5 days with symptoms starting 1 day after he worked on a motor vehicle for 2 hours. He had no concerning systemic symptoms and he does not use injection drugs. Vital signs revealed an elevated blood pressure otherwise unremarkable. Exam did reveal tenderness palpation of the paraspinal muscles in the lumbar sacral area right greater than left and positive straight leg raises bilaterally. Differential diagnosis: ?Includes but is not limited to sciatica, lumbar sacral disc disease, degenerative joint disease, musculoskeletal strain, epidural abscess Following evaluation was ordered:CBC, CMP, lipase, lactic acid, urinalysis Patient was initially treated with the following: Hydromorphone 1 mg IV Course: My independent interpretation patient's laboratory evaluation is as follows: CBC was normal. Chloride elevated 112, CO2 low 20, BUN creatinine normal, LFTs were normal. Lipase was normal. Urinalysis was negative, microscopic was unremarkable. Patient's presentation is consistent with sciatica and I did discuss this with the patient. Patient did not get significant relief with the initial dose of hydromorphone-he does take oxycodone for chronic pain and most likely has tolerance to narcotics. He is treated with Robaxin 750 mg orally, Dilaudid 1 mg IV as a 2nd dose and prednisone 60 mg orally. Patient will be discharged to home with prescriptions for Robaxin and prednisone. He was advised to continue taking his other medications, follow-up with his PCP for re-evaluation. Admission/Observation Consideration of admission/observation: Escalation of care including admission/observation considered Lab Data MDM Lab Attestation statement: I reviewed the patient's lab results. 03/17/24 15:40 03/17/24 15:40 Labs: Lab Results 03/17/24 Range/Units 15:40 WBC 7.6 (4.8-10.8) X10*3/uL RBC 5.18 (4.60-5.80) X10*6/uL Hgb 15.6 (14.0-18.0) g/dl Hct 46.6 (42.0-52.0) % MCV 90.0 (80.0-98.0) fL MCH 30.1 (27.0-33.0) pg MCHC 33.5 (31.0-36.0) g/dl RDW 13.6 (11.0-16.0) % Plt Count 327 (160-400) X10*3/uL MPV 10.1 (9.4-12.4) fL Immature Gran % (Auto) 0.3 (0.0-0.4) % Neut % (Auto) 56.3 (45-73) % Lymph % (Auto) 34.3 (20-40) % [place] % (Auto) 6.3 (2-11) % Eos % (Auto) 1.8 (0-4) % Baso % (Auto) 1.0 (0-2) % Lymph # (Auto) 2.6 (1.2-4.9) X10*3/uL [place] # (Auto) 0.5 (0.1-1.2) X10*3/uL Eos # (Auto) 0.1 (0.0-0.4) X10*3/uL Baso # (Auto) 0.1 (0.0-0.2) X10*3/uL Abs Immat Gran (auto) 0.02 (0.00-0.03) X10*3/uL Absolute Neuts (auto) 4.3 (2.0-8.3) x10*3/uL Absolute Nucleated RBC 0.000 (0.0-0.012) X10*3/uL Nucleated RBC % (auto) 0.0 (0.0-0.2) /100WBC Sodium 142 (135-145) mmol/L Potassium 3.8 D (3.3-5.1) mmol/L Chloride 112 H (96-108) mmol/L Carbon Dioxide 20 L (22-29) mmol/L Anion Gap 14 (12-20) BUN 7 L (9-16) mg/dL Creatinine 0.80 (0.5-1.4) mg/dL Estim Creat Clear Calc 87.2 Estimated GFR > 60 Random Glucose 80 (60-115) mg/dL Lactic Acid 1.2 (0.5-2.0) mmol/L Calcium 9.5 D (8.4-10.2) mg/dL Total Bilirubin 0.4 (0.0-1.0) mg/dL AST 13 (5-37) U/L ALT 9 (0-40) U/L Alkaline Phosphatase 66 (39-117) U/L Total Protein 7.2 (6.5-8.0) g/dL Albumin 4.4 (3.5-5.0) g/dL Lipase 27 (8-78) U/L Urine Color Yellow Urine Appearance Clear Urine pH 6.5 (5.0-9.0) Ur Specific [place] 1.010 (1.005-1.025) Urine Protein Negative (Neg-Trace) mg/dL Urine Glucose (UA) Negative (Negative) mg/dL Urine Ketones Negative (Negative) mg/dL Urine Blood Negative (Negative) Urine Nitrite Negative (Negative) Ur Leukocyte Esterase Negative (Negative) Urine RBC 0-2 (0-2) /HPF Urine WBC 0-5 (0-5) /HPF Ur Squamous Epith Cells 0-2 (0-2) /HPF Urine Bacteria None Seen (None Seen) Hyaline Casts 0-2 (0-2) /LPF Prescription Management I considered prescription management with: Other (Anti-inflammatory steroids and muscle relaxants) Discharge Plan Discharge Clinical Impression: Sciatica, Left groin hernia Patient Disposition: Home, Self-Care Instructions: Sciatica (ED) Additional Instructions: Your blood work and urinalysis were unremarkable. Your symptoms are consistent with inflammation of the sciatic nerve-a large nerve bundle that comes out of your back in provides sensation down the back of your leg to your foot. Continue taking your oxycodone and Tylenol Take prednisone 20 mg pills, 3 pills once a day for 5 days. While you ?are taking prednisone, do not take any NSAIDs (Motrin, Advil, ibuprofen, Aleve, naproxen). Take Robaxin (methocarbamol) 750 mg pills, 1 pill 3 times a day as needed for pain and spasm of your back. Apply ice for 15 minutes 4 to 6 times a day to the lower back to help reduce the inflammation and pain that your experiencing. Follow-up with your doctor in 2 days. Please return to the emergency department if your symptoms get worse or if you develop any symptoms that are concerning to you. Prescriptions: New methocarbamol 750 mg tablet 750 mg PO TID PRN (Reason: Muscle pain and spasm) Qty: 15 0RF prednisone 20 mg tablet 60 mg PO DAILY 5 Days Qty: 15 0RF No Action alprazolam 0.5 mg tablet 0.5 mg PO DAILY PRN (Reason: anxiety) albuterol sulfate 90 mcg/actuation HFA aerosol inhaler 2 puff inhalation Q4-6H PRN (Reason: wheezing) cetirizine 10 mg tablet 10 mg PO QAM valacyclovir 500 mg tablet 500 mg PO DAILY fluticasone propionate [Flovent HFA] 220 mcg/actuation HFA aerosol inhaler 1 puff inhalation BID cholecalciferol (vitamin D3) 50 mcg (2,000 unit) capsule 50 mcg PO DAILY omeprazole 20 mg capsule,delayed release(DR/EC) 20 mg PO BID Qty: 60 6RF tamsulosin [Flomax] 0.4 mg capsule 0.4 mg PO BEDTIME Qty: 30 4RF prazosin 1 mg capsule 1 mg PO BEDTIME Print Language: [place]
[2024-03-17 15:26] VITALS: BP 131/103; PULSE 72; RESP 18; TEMP 37; O2SAT 98; BMI 23.8
[2024-03-17 15:48] LABS: MANUAL DIFF FLAG NO
[2024-03-17 15:49] LABS: Appearance Urine Clear; Basophils Absolute Auto 0.1 X10*3/uL (0.0-0.2); Color Urine Yellow; Eosinophils Absolute Auto 0.1 X10*3/uL (0.0-0.4); Eosinophils Percent Auto 1.8 % (0-4); Glucose Urine UA Negative (Negative); Hematocrit 46.6 % (42.0-52.0); Hemoglobin 15.6 g/dl (14.0-18.0); Imm Gran Abs Auto 0.02 X10*3/uL (0.00-0.03); Imm Gran Pct Auto 0.3 % (0.0-0.4); Leukocyte Esterase Urine Negative (Negative); Lymphocytes Absolute Auto 2.6 X10*3/uL (1.2-4.9); Lymphocytes Percent Auto 34.3 % (20-40); Mean Corpuscular HGB Conc 33.5 g/dl (31.0-36.0); Mean Corpuscular Hemoglobin 30.1 pg (27.0-33.0); Mean Platelet Volume 10.1 fL (9.4-12.4); Monocytes Absolute Auto 0.5 X10*3/uL (0.1-1.2); Monocytes Percent Auto 6.3 % (2-11); Neutrophils Absolute Auto 4.3 x10*3/uL (2.0-8.3); Neutrophils Percent Auto 56.3 % (45-73); Nitrite Urine Negative (Negative); PH 6.5 (5.0-9.0); Platelet Count 327 X10*3/uL (160-400); Red Blood Count 5.18 X10*6/uL (4.60-5.80); Red Cell Distribution Width 13.6 % (11.0-16.0); Urine Blood Negative (Negative); Urine Ketones Negative (Negative); Urine Protein Negative (Neg-Trace); White Blood Count 7.6 X10*3/uL (4.8-10.8)
[2024-03-17 15:52] LABS: Bacteria Urine None Seen (None Seen); Hyaline Casts Urine 0-2 /LPF (0-2); RBC Urine 0-2 /HPF (0-2); Squamous Epithelial Cell Urine 0-2 /HPF (0-2); WBC Urine 0-5 /HPF (0-5)
[2024-03-17 16:07] LABS: Lactic Acid 1.2 mmol/L (0.5-2.0)
[2024-03-17 16:13] LABS: Alanine Aminotransferase 9 U/L (0-40); Albumin Level 4.4 g/dL (3.5-5.0); Alkaline Phosphatase 66 U/L (39-117); Anion Gap 14 (12-20); Aspartate Amino Transferase 13 U/L (5-37); Bilirubin Total 0.4 mg/dL (0.0-1.0); Blood Urea Nitrogen 7 mg/dL (9-16); Calcium 9.5 mg/dL (8.4-10.2); Carbon Dioxide 20 mmol/L (22-29); Chloride 112 mmol/L (96-108); Creatinine Clr Calc Pharmacy 87.2; Estimated Glomerular Filt Rate > 60; Glucose Random 80 mg/dL (60-115); Lipase 27 U/L (8-78); Potassium 3.8 mmol/L (3.3-5.1); Sodium 142 mmol/L (135-145); Total Protein 7.2 g/dL (6.5-8.0)
[2024-03-17 22:01] VITALS: BP 132/97; PULSE 63; RESP 19; TEMP 37; O2SAT 97
[2024-03-18 00:09] VITALS: BP 137/95; PULSE 65; RESP 17; TEMP 37; O2SAT 98
--- NOTE | 2024-03-18 00:33 | PC.NURSE ---
Took report from off-going RN at 2300 hours. Pt is a 48 y/o male, here for back pain that radiates down right leg and increasing hernia pain. Pt is unable to articulate which pain is worse. Pt has difficulty with ambulation secondary to pain. Pt is arousable with verbal stimuli, calm and cooperative, appropriate with staff.
--- NOTE | 2024-03-18 01:33 | PC.NURSE ---
Pt is resting in bed, appears comfortable. Changes positions independently as desired. Easily arousable with verbal stimuli.
[2024-03-18 02:00] VITALS: BP 140/93; PULSE 56; RESP 14; TEMP 36.6; O2SAT 99
--- NOTE | 2024-03-18 03:55 | PC.NURSE ---
Pt, with family on the phone, ambulated to the nurses station and expressed frustration with the long wait time. Pt and family reassured the provider would be in as soon as he was available. Pt reports being in a lot of pain and would like something to mitigate it. Typically manages pain at home with oxycodone and alprazolam. Pain management requested.
[2024-03-18 04:00] VITALS: BP 137/101; PULSE 65; RESP 16; TEMP 36.7; O2SAT 97
[2024-03-18] MEDS: HYDROmorphone HCl 1 MG/ML SYRINGE IVPUSH (04:10)
--- NOTE | 2024-03-18 04:13 | PC.NURSE ---
20G IV access established in left forearm. No pain indicated and no signs of infiltration. Pt tolerated well.
[2024-03-18] MEDS: predniSONE 20 MG TABLET 60 MG PO (05:54)
[2024-03-18] MEDS: methocarbamoL 750 MG TABLET PO (05:55)
[2024-03-18 06:00] VITALS: BP 127/96; PULSE 53; RESP 16; TEMP 36.8; O2SAT 97
[2024-03-18 06:21] VITALS: BP 127/96; PULSE 53; RESP 16; TEMP 36.8; O2SAT 97
--- NOTE | 2024-03-30 03:24 | PC.NURSE ---
Just prior to discharge at approximatley 0620 hours on 03/18/24, pt was medicated for pain with 1mg Dilaudid per MAR.
== END 2024-03-18 06:26 | disposition home or self-care (01) ==
PROVIDERS: Physician Assistant; Emergency Provider Emergency Medicine Emergency Medical Services; PCP Family Medicine
DX: M54.42 Lumbago with sciatica, left side (principal); K46.9 Unspecified abdominal hernia without obstruction or gangrene; Z79.899 Other long term (current) drug therapy
CPT/HCPCS: 36415; 80053; 81001; 83605; 83690; 85025; 96374; 99284; J1170

== ENCOUNTER 2024-03-20 14:47 | Outpatient (REF) | payer MEDICARE, SELFPAY ==
[2024-03-20 16:08] LABS: Glucose Fasting 103 mg/dL (60-99)
[2024-03-20 16:34] LABS: PSA,Total (Free>4and<10) 0.58 ng/mL (0.00-4.00)
[2024-03-21 10:04] LABS: Follicle Stimulating Hormone 5.9 mIU/mL (1.4-12.8); Lutenizing Hormone 9.6 mIU/mL (1.5-9.3); Prolactin 4.7 ng/mL (2.0-18.0)
[2024-03-24 19:48] LABS: Immunoglobulin A 160 mg/dL (47-310); Transglutaminase IgA <1.0 U/mL
[2024-03-25 13:09] LABS: Testosterone, Free 63.5 pg/mL (35.0-155.0); Testosterone, Total 385 ng/dL (250-1100)
[2024-03-29 01:28] LABS: Estradiol Ultra Sensitive 20 pg/mL (< OR = 29)
== END 2024-03-20 14:48 | disposition home or self-care (01) ==
LOC: HO.LAB 14:47
PROVIDERS: PCP Family Medicine; Visit Provider Urology
DX: R14.0 Abdominal distension (gaseous) (principal); N52.9 Male erectile dysfunction, unspecified; Z12.5 Encounter for screening for malignant neoplasm of prostate
CPT/HCPCS: 36415; 82670; 82784; 82947; 83001; 83002; 84146; 84153; 84402; 84403; 86364

== ENCOUNTER 2024-03-31 13:37 | Outpatient (AMB) | payer MEDICARE, MEDICAID, SELFPAY ==
--- NOTE | 2024-03-31 13:38 | A.OFFVIS_ITS ---
Vital Signs 03/31/24 13:47 Height 5 ft 2 in Weight 134 lb BMI 24.5 BP 130/83 Blood Pressure Location Rt brachial Position Sitting Pulse 75 Intake Visit Reasons: Unilateral inguinal hernia Intake Note: Patient referred by Dr. Delarosa for unilateral inguinal hernia. Present for 3m. Patient c/o: noticed after lifting father in law. Painful with cough. Bulging out. 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 His increasing in size, becoming symptomatic. Like to have repair. Patient did do occasional strenuous activity. He had industrial accident and lost his eye from this. Patient otherwise tolerating a diet. He has regular bowel habits. Chart was reviewed and patient evaluated [facility] Medical History Screening PSA (prostate specific antigen) Rib pain on left side Constipation Colon cancer screening GERD (gastroesophageal reflux disease) Depression with anxiety Asthma Pelvis, multiple open fractures with disruption of pelvic [place] Failed spinal cord stimulator Surgical History History of arthroscopy of right knee History of back surgery H/O pelvic surgery H/O enucleation of left eyeball Social History Are you a primary field care advocate to a significant other at home: No Do you presently have visiting nurse or other home services: No Alcohol intake: never Patient Tobacco Use Status: Current everyday Tobacco user Tobacco use type: Cigarette Cigarettes Per Day: 10 Physical Exam Vital Signs: Last Vital Signs Pulse 75 03/31/24 13:47 BP 130/83 03/31/24 13:47 BMI result Body Mass Index 24.5 Eyes Other: Left eye missing Chest Other: Chest breath sounds bilaterally, HS 1 in 2 GI Other: Abdomen is soft, benign. Patient was examined both supine and standing with Valsalva. Right groin negative. Genitalia within normal limits. Reducible left inguinal hernia. No femoral hernia demonstrated Assessment & Plan Assessment & Plan (1) Inguinal hernia: Code(s): K40.90 - Unilateral inguinal hernia, without obstruction or gangrene, not specified as recurrent Category: Medical Plan Risks, benefits, alternatives of left open inguinal hernia repair with mesh reviewed the patient and included but not limited to bleeding, infection, recurrence, numbness, pain, scarring the patient wishes to proceed. All questions answered. Arrangements made for this. Coding Level of Care Code New Pt Level 5 (22901) Diagnoses Inguinal hernia K40.90
[2024-03-31 13:47] VITALS: BP 130/83; PULSE 75; BMI 24.5
== END 2024-03-31 14:10 | disposition home or self-care (01) ==
PROVIDERS: PCP Family Medicine; Referring Provider Internal Medicine Gastroenterology; Visit Provider Surgery
DX: K40.90 Unilateral inguinal hernia, without obstruction or gangrene, not specified as recurrent (principal)
CPT/HCPCS: 99204

== ENCOUNTER → 2024-03-31 13:37 | Outpatient (BNVA) | payer MEDICARE, SELFPAY | PROVIDERS: PCP Family Medicine; Referring Provider Internal Medicine Gastroenterology; Visit Provider Surgery | DX: K40.90 Unilateral inguinal hernia, without obstruction or gangrene, not specified as recurrent (principal) | CPT/HCPCS: 99202 ==

== ENCOUNTER 2024-04-10 15:11 | Outpatient (AMB) | payer MEDICARE, MEDICAID, SELFPAY ==
--- NOTE | 2024-04-10 14:05 | A.OFFVIS_ITS ---
Intake Visit Reasons: 6w/Testo(us 01/08) Rubber Process Hand Required: Yes Rubber Process Hand Name: Dasha Doyle Information Interpreted: non-clinical & clinical Allergies amitriptyline Allergy (Severe, Verified 05/04/24 14:17) Confusion morphine [MORPHINE] Allergy (Severe, Verified 05/04/24 14:17) CONSTIPATION, stomach upset ibuprofen [From MOTRIN] Adverse Reaction (Intermediate, Verified 05/04/24 14:17) ABD PAIN cyclobenzaprine [From FLEXERIL] Adverse Reaction (Mild, Verified 05/04/24 14:17) DRY MOUTH influenza H1N1 Allergy (Intermediate, Uncoded 05/04/24 14:17) Weakness HPI Comments Details: 04/10/24--Telehealth fu, reviewed labs, PSA - 03/20/24- 0.58 ng/mL. Total and Free testosterone is low, 385 and 63.5. Discussed testosterone replacement therapy. Review of chart: 01/09/24--Hosea is here for evaluation for enlarged prostate. He complains of weak urinary stream and nocturia. He also has complaints of erectile dysfunction, not able to maintain an erection. Discussed trial of tamsulosin. Will check hormone levels, including free and total testosterone and PSA screening. [facility] Medical History (Updated 05/27/24 @ 11:23 by Rita Edwards MD) Left inguinal hernia (04/26/24) Left groin hernia Screening PSA (prostate specific antigen) Rib pain on left side Constipation GERD (gastroesophageal reflux disease) Depression with anxiety Asthma Colon cancer screening Pelvis, multiple open fractures with disruption of pelvic [place] Failed spinal cord stimulator Surgical History (Updated 05/04/24 @ 15:10 by Mickey Hobson MD) History of esophagogastroduodenoscopy (EGD) H/O colonoscopy History of arthroscopy of right knee History of back surgery H/O pelvic surgery H/O enucleation of left eyeball Social History Are you a primary hemodialysis patient care specialist to a significant other at home: No Do you presently have visiting nurse or other home services: No Alcohol intake: never Patient Tobacco Use Status: Current everyday Tobacco user Tobacco use type: Cigarette Cigarettes Per Day: 10 Review of Systems Const All systems reviewed & are unremarkable except as noted in HPI and below Reports no additional complaints Eyes Reports no additional complaints ENT Reports no additional complaints Card Reports no additional complaints Resp Reports no additional complaints GI Reports no additional complaints Reports as per HPI Musc Reports no additional complaints Skin/Breast Reports system reviewed and no additional complaints, except as documented Neuro Reports no additional complaints Psych Reports no additional complaints Endo Reports no additional complaints Lenin/Lymph Reports no additional complaints Aller/Immun Reports no additional complaints Telehealth Telehealth Telehealth Platform: [facility] Location of provider rendering services: practice address Location of patient: address on file Patient Identification confirmed using: Name, : Yes Telehealth method: voice only Patient verbally consented to treatment: Yes Patient verbally consented to billing insurance company: Yes Patient informed of any privacy concerns related to visit: Yes Minutes spent on Phone/Video with Pt.: 18 Assessment & Plan Assessment & Plan (1) Low testosterone: Code(s): R79.89 - Other specified abnormal findings of blood chemistry Category: Medical (2) Encounter for monitoring testosterone replacement therapy: Code(s): Z51.81 - Encounter for therapeutic drug level monitoring; Z79.890 - Hormone replacement therapy Category: Medical Plan Testosterone replacement. check labs in 3 months Orders: Orders Testosterone, Free/Total 3 Months R79.89 - Other specified abnormal findings of blood chemistry, Z51.81 - Encounter for therapeutic drug level monitoring, Z79.890 - Hormone replacement therapy Medications: New testosterone 2 pumps topical DAILY 75 grams 1RF 30 days Patient Instructions: The patient had an opportunity to ask questions regarding treatment plan. The patient expressed understanding and agreement with the above treatment plan. The patient is aware they should contact our office by phone for worsening of their current condition or the appearance of new symptoms. Compliance is encouraged with any medications and followup testing that is ordered. It is a privilege to be allowed the opportunity to participate in the urologic care of your patient. If you have any questions or concerns regarding treatment for the above conditions please do not hesitate to contact me. The office telephone contact is [phone]. This note is constructed in part using voice recognition software. While every effort has been made to ensure accuracy photographic process screen maker errors may have been included. Yours sincerely, Rita Edwards MD Coding Level of Care Code Tele Est Pt Level 4 (19606) Diagnoses Low testosterone R79.89 Encounter for monitoring testosterone replacement therapy Z51.81; Z79.890
== END 2024-04-10 16:05 | disposition home or self-care (01) ==
LOC: HO.HUSH 15:12
PROVIDERS: PCP Family Medicine; Visit Provider Urology
DX: R79.89 Other specified abnormal findings of blood chemistry (principal); Z51.81 Encounter for therapeutic drug level monitoring; Z79.890 Hormone replacement therapy
CPT/HCPCS: 99442

== ENCOUNTER → 2024-04-10 15:11 | Outpatient (BNVA) | payer MEDICARE, MEDICAID, SELFPAY | PROVIDERS: PCP Family Medicine; Visit Provider Urology ==

== ENCOUNTER 2024-04-24 06:53 | Day surgery (SDC) | payer MEDICARE, MEDICAID, SELFPAY ==
[2024-04-22 13:54] VITALS: BMI 24.5
--- NOTE | 2024-04-22 14:54 | HO.ANESPROP2 ---
Documented by User: Sandrine Owens NP 04/22/24 14:57 HPI - Anesthesia Eval Consult details Narrative: 48yo M for Left Repair Open Hernia Inguinal Reducible with mesh s/p EGD 02/2024 with [facility] Active Problems Active Problems: All Active Problems Encounter for monitoring testosterone replacement therapy (Acute) Low testosterone (Acute) Inguinal hernia (Acute) Erectile dysfunction (Acute) BPH loc w urin obs/LUTS (Acute) Upper abdominal pain (Acute) Tubular adenoma of colon (Acute) One eye-mod/oth-blind (Acute) GERD (gastroesophageal reflux disease) (Acute) Herpes simplex (Acute) Depression with anxiety (Acute) Chronic low back pain (Acute) Lumbar degenerative disc disease (Acute) Smoker (Acute) Asthma (Acute) Rib pain on left side (Acute) Constipation (Acute) Past Medical History Medical History Screening PSA (prostate specific antigen) Rib pain on left side Constipation GERD (gastroesophageal reflux disease) Depression with anxiety Asthma Colon cancer screening Pelvis, multiple open fractures with disruption of pelvic [place] Failed spinal cord stimulator Family History Family history of problems with anesthesia: No Surgical History Surgical History History of esophagogastroduodenoscopy (EGD) H/O colonoscopy History of arthroscopy of right knee History of back surgery H/O pelvic surgery H/O enucleation of left eyeball History of Problems with Anesthesia: No Social History Social History Are you a primary account executive healthcare to a significant other at home: No Do you presently have visiting nurse or other home services: No Alcohol intake: never Patient Tobacco Use Status: Current everyday Tobacco user Tobacco use type: Cigarette Cigarettes Per Day: 10 Use of substances other than those prescribed or required for medical reasons: No Have you been hit, kicked, punched, or otherwise hurt by someone within the past year? If so, by whom?: No Are you DNR?: No Advance Directives: No Advance Directives Information Provided: Yes Recently lost weight without trying: No Nutrition Risks: No Nutritional Risk Poor oral hygiene: No Meds Allergies Allergy/AdvReac Type Severity Reaction Status Date / Time amitriptyline Allergy Severe Confusion Verified 04/24/24 07:14 morphine [MORPHINE] Allergy Severe CONSTIPATION, Verified 04/24/24 07:14 stomach upset ibuprofen [From MOTRIN] AdvReac Intermediate ABD PAIN Verified 04/24/24 07:14 cyclobenzaprine AdvReac Mild DRY MOUTH Verified 04/24/24 07:14 [From FLEXERIL] influenza H1N1 Allergy Intermediate Weakness Uncoded 03/31/24 13:44 Home Medications ?Medication ?Instructions ?Recorded ?Confirmed ?Last Taken ?Type albuterol sulfate 90 mcg/actuation 2 puff inhalation Q4-6H PRN 12/04/21 04/22/24 Unknown History aerosol inhaler wheezing alprazolam 0.5 mg tablet 0.5 mg PO DAILY PRN anxiety 12/04/21 04/22/24 03/10/24 History cetirizine 10 mg tablet 10 mg PO QAM 12/27/22 04/22/24 Unknown History cholecalciferol (vitamin D3) 50 50 mcg PO DAILY 12/27/22 04/22/24 Unknown History mcg (2,000 unit) capsule valacyclovir 500 mg tablet 500 mg PO DAILY 12/27/22 04/22/24 Unknown History acetaminophen 500 mg tablet 500 mg PO Q6H PRN Pain, Mild 04/24/24 04/24/24 04/24/24 History Exam Height,Weight and Vital Signs: Height 5 ft 2 in Weight 60.781 kg Pertinent Lab Results Pertinent Lab Results: Laboratory Tests 03/17/24 15:40 WBC 7.6 Hgb 15.6 Hct 46.6 Plt Count 327 Sodium 142 Potassium 3.8 D Chloride 112 H Carbon Dioxide 20 L BUN 7 L Creatinine 0.80 Assessment and Plan Assessment Anesthesia Assessment: Chart Reviewed Final Anesthetic Review Family History of Problems with Anesthesia: No History of Problems with Anesthesia: No Documented by User: Ashley Anderson MD 04/24/24 08:42 [facility] Past Medical History Medical History Screening PSA (prostate specific antigen) Rib pain on left side Constipation GERD (gastroesophageal reflux disease) Depression with anxiety Asthma Colon cancer screening Pelvis, multiple open fractures with disruption of pelvic [place] Failed spinal cord stimulator Surgical History Surgical History History of esophagogastroduodenoscopy (EGD) H/O colonoscopy History of arthroscopy of right knee History of back surgery H/O pelvic surgery H/O enucleation of left eyeball Social History Social History Are you a primary account executive healthcare to a significant other at home: No Do you presently have visiting nurse or other home services: No Alcohol intake: never Patient Tobacco Use Status: Current everyday Tobacco user Tobacco use type: Cigarette Cigarettes Per Day: 10 Use of substances other than those prescribed or required for medical reasons: No Have you been hit, kicked, punched, or otherwise hurt by someone within the past year? If so, by whom?: No Are you DNR?: No Advance Directives: No Advance Directives Information Provided: Yes Recently lost weight without trying: No Nutrition Risks: No Nutritional Risk Poor oral hygiene: No Meds Allergies Allergy/AdvReac Type Severity Reaction Status Date / Time amitriptyline Allergy Severe Confusion Verified 04/24/24 07:14 morphine [MORPHINE] Allergy Severe CONSTIPATION, Verified 04/24/24 07:14 stomach upset ibuprofen [From MOTRIN] AdvReac Intermediate ABD PAIN Verified 04/24/24 07:14 cyclobenzaprine AdvReac Mild DRY MOUTH Verified 04/24/24 07:14 [From FLEXERIL] influenza H1N1 Allergy Intermediate Weakness Uncoded 03/31/24 13:44 Home Medications ?Medication ?Instructions ?Recorded ?Confirmed ?Last Taken ?Type albuterol sulfate 90 mcg/actuation 2 puff inhalation Q4-6H PRN 12/04/21 04/22/24 Unknown History aerosol inhaler wheezing alprazolam 0.5 mg tablet 0.5 mg PO DAILY PRN anxiety 12/04/21 04/22/24 03/10/24 History cetirizine 10 mg tablet 10 mg PO QAM 12/27/22 04/22/24 Unknown History cholecalciferol (vitamin D3) 50 50 mcg PO DAILY 12/27/22 04/22/24 Unknown History mcg (2,000 unit) capsule valacyclovir 500 mg tablet 500 mg PO DAILY 12/27/22 04/22/24 Unknown History acetaminophen 500 mg tablet 500 mg PO Q6H PRN Pain, Mild 04/24/24 04/24/24 04/24/24 History Exam Airway Mallampati Class: II TM Dist: >3cm Neck ROM: Full Heart: rrr Lungs: cta Assessment and Plan Assessment Anesthesia Assessment: Anesthesia Plan Discussed Final Anesthetic Review NPO: Yes ASA Class: III Final Preanesthetic Review: No Changes in Pt Med Stat, Meds/Allgs Chart Reviewed, Consent Obtained/Reviewed and Anes Risks/Benef Reviewed Patient Risk: Intermediate Procedure Risk: Low Anesthetic Plan Anesthetic Plan: GA and MAC: Disposition: Standard PACU
--- NOTE | 2024-04-23 13:14 | MHC.SHP ---
Pre-Procedural Eval Section A - 24 Hr Update-Section A only Date of Service: 04/24/24 The patient is an INPATIENT: No Changes since office visit: No Cold of Flu in the past 2 weeks, No New Medical Problems, No Changes in Medication and No Patient answered all questions Section B - Complete if H&P > 30 days Chief Complaint: Unilateral inguinal hernia, without obstruction or Allergies: Allergies Allergy/AdvReac Type Severity Reaction Status Date / Time amitriptyline Allergy Severe Confusion Verified 03/31/24 13:44 morphine [MORPHINE] Allergy Severe CONSTIPATION, Verified 03/31/24 13:44 stomach upset ibuprofen [From MOTRIN] AdvReac Intermediate ABD PAIN Verified 03/31/24 13:44 cyclobenzaprine AdvReac Mild DRY MOUTH Verified 03/31/24 13:44 [From FLEXERIL] influenza H1N1 Allergy Intermediate Weakness Uncoded 03/31/24 13:44 Review of Systems Sugical H&P ROS: Negative: Constitution, Cardiovascular, Respiratory, Neurological, Psychiatric, Hem-Onc, Allergic/Immunologic, Gastrointestinal, Genitourinary, Musculoskeletal, Integumentary, Endocrine and Eyes/Ears/Nose/Throat Exam Surgical H&P Exam: Normal: HEENT, Normal: Heart, Normal: Lungs, Normal: Extremities, Normal: Abdomen, Normal: Skin and Normal: Neurological Plan I have reviewed the history and physical and performed a pertinent physical examination on my patient. No changes have occurred unless specified. Time Spent With Patient Time: Total time managing care of this patient today ____ minutes.
[2024-04-24] VITALS (11 sets, daily range): BP systolic 103–156; BP diastolic 57–107; PULSE 57–76; RESP 12–16; TEMP 36.1–36.5; O2SAT 97–98; BMI 25.1
[2024-04-24] MEDS: Lactated Ringers 1,000 ML 100 ML IVCONT (08:01)
--- NOTE | 2024-04-24 09:34 | W.PM.OPN ---
Operative Note Operative Note Date of Service: 04/24/24 Narrative: Preoperative diagnosis: [] Symptomatic, enlarging left inguinal hernia Postop diagnosis: [] The same Procedure [] open left inguinal herniorrhaphy with Bard mesh Surgeon: [] Joce Elevator Operator Service: [] Myke Type of Anesthesia: [] MAC Indication for surgery: [] Very large indirect hernia sac, moderately sized direct hernia. Findings: [] Patient brought to the operating room, placed on operative table supine position, after an adequate level of MAC anesthesia was induced, the left groin was prepped and draped in usual sterile fashion. Ilioinguinal block followed by local infiltration of the incision with 0.5% Marcaine/1 % lidocaine was performed and then a small left para inguinal incision was made and carried down through skin, subcutaneous tissue, Elle's fascia. External oblique fibers were opened their direction with care to isolate and preserve the ilioinguinal nerve throughout the procedure. Spermatic cord was identified and retracted from the field. Large indirect hernia sac was from the spermatic cord and reduced. Also noted was a moderately sized indirect hernia. An extra-large Bard plug was placed in the indirect defect and this was sutured inferiorly to the inguinal ligament, and superiorly to the transversalis fascia using interrupted 0 Ethibond suture. At completion of procedure, mesh covered the inguinal floor as well with no tension or spaces. Wound was irrigated, secured hemostasis. Was closed in the following manner; external oblique fascia was closed using running 2-0 Vicryl suture. Elle's fascia was reapproximated using interrupted 3-0 Vicryl suture. Interrupted inverted deep dermal 3-0 Vicryl sutures followed by running subcuticular 4-0 Vicryl sutures were placed. Steri-Strips and sterile dressings were applied. Sponge, needle, and instrument counts were reported correct. Patient tolerated the procedure well and emerged from anesthesia stable condition. EBL minimal. Ipsilateral testicle was intrascrotal at completion.
[2024-04-24] MEDS: fentaNYL citrate/PF 100 MCG/2 ML VIAL 25 MCG IVPUSH ×5 (09:35→10:36)
== END 2024-04-24 11:57 | disposition home or self-care (01) ==
PROVIDERS: PCP Family Medicine; Visit Provider Surgery
PROC: (CPT 49505; principal; 2024-04-24 09:00)
DX: K40.90 Unilateral inguinal hernia, without obstruction or gangrene, not specified as recurrent (principal); K59.00 Constipation, unspecified; K21.9 Gastro-esophageal reflux disease without esophagitis; J45.909 Unspecified asthma, uncomplicated; F41.8 Other specified anxiety disorders; Z90.01 Acquired absence of eye; Z79.899 Other long term (current) drug therapy; Z88.5 Allergy status to narcotic agent; Z88.6 Allergy status to analgesic agent; Z88.8 Allergy status to other drugs, medicaments and biological substances; Z98.890 Other specified postprocedural states; F17.210 Nicotine dependence, cigarettes, uncomplicated
CPT/HCPCS: 49505; C1781; J0690; J2250; J2704; J2795; J3010

== ENCOUNTER → 2024-04-24 06:53 | Outpatient (BNV) | payer MEDICARE, MEDICAID, SELFPAY | PROVIDERS: PCP Family Medicine; Visit Provider Surgery | DX: K40.90 Unilateral inguinal hernia, without obstruction or gangrene, not specified as recurrent (principal) | CPT/HCPCS: 49505 ==

== ENCOUNTER 2024-05-04 14:08 | Outpatient (AMB) | payer MEDICARE, MEDICAID, SELFPAY ==
--- NOTE | 2024-05-04 14:11 | MHC.OFFVIS ---
Intake Visit Reasons: s/p Repair open LIH w/mesh Intake Note: Patient here s/p LIH w/mesh on 04-24-2024. Reports incisions healing well. Patient c/o: pain on Lt lower abdomen. Steri strips still in place. 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 Aside from incisional discomfort which is improving he is otherwise doing well. Starting a diet. Having regular bowel habits. He is slowly but steadily increasing his activity level. [facility] Medical History (Updated 04/29/24 @ 14:43 by ELIZABETH Wood) Left inguinal hernia (04/26/24) Left groin hernia Screening PSA (prostate specific antigen) Rib pain on left side Constipation GERD (gastroesophageal reflux disease) Depression with anxiety Asthma Colon cancer screening Pelvis, multiple open fractures with disruption of pelvic [place] Failed spinal cord stimulator Surgical History (Updated 05/04/24 @ 15:10 by Mickey Hobson MD) History of esophagogastroduodenoscopy (EGD) H/O colonoscopy History of arthroscopy of right knee History of back surgery H/O pelvic surgery H/O enucleation of left eyeball Social History Are you a primary manager career to a significant other at home: No Do you presently have visiting nurse or other home services: No Alcohol intake: never Patient Tobacco Use Status: Current everyday Tobacco user Tobacco use type: Cigarette Cigarettes Per Day: 10 Physical Exam GI Other: Abdomen is soft. Incision clean dry and intact healing very well Assessment & Plan Assessment & Plan (1) Postop check: Code(s): Z09 - Encounter for follow-up examination after completed treatment for conditions other than malignant neoplasm Category: Surgical (2) Status post inguinal hernia repair using synthetic patch: Code(s): Z98.890 - Other specified postprocedural states; Z87.19 - Personal history of other diseases of the digestive system Category: Surgical Plan Patient and significant other have been given local instructions, the patient otherwise follow-up p.r.n.. All questions answered. Coding Level of Care Code Global (44001) Diagnoses Postop check Z09 Status post inguinal hernia repair using synthetic patch Z98.890; Z87.19
== END 2024-05-04 14:40 | disposition home or self-care (01) ==
PROVIDERS: PCP Family Medicine; Visit Provider Surgery
DX: Z09 Encounter for follow-up examination after completed treatment for conditions other than malignant neoplasm (principal); Z98.890 Other specified postprocedural states; Z87.19 Personal history of other diseases of the digestive system
CPT/HCPCS: 99024

== ENCOUNTER → 2024-05-04 14:08 | Outpatient (BNVA) | payer MEDICARE, MEDICAID, SELFPAY | PROVIDERS: PCP Family Medicine; Visit Provider Surgery | DX: Z09 Encounter for follow-up examination after completed treatment for conditions other than malignant neoplasm (principal); K40.90 Unilateral inguinal hernia, without obstruction or gangrene, not specified as recurrent; R10.9 Unspecified abdominal pain; Z87.19 Personal history of other diseases of the digestive system; Z98.890 Other specified postprocedural states | CPT/HCPCS: 99212 ==

== ENCOUNTER 2024-06-01 10:44 | Outpatient (AMB) | payer MEDICARE, MEDICAID, SELFPAY ==
--- NOTE | 2024-06-01 10:47 | MHC.OFFVIS ---
Vital Signs 06/01/24 10:50 Height 5 ft 2 in Weight 136 lb 10.986 oz BMI 25.0 Respiration 16 Pulse 62 Intake Visit Reasons: issues with hernia repair Intake Note: Patient is seen in office for follow up visit, post hernia repair. Pt c/o: admits to pain near the incision site, pain worse when going up and down stairs, numbness in the area, feels like pins and needles, taking pain meds as needed Accompanied by: Family/Other Allergies amitriptyline Allergy (Severe, Verified 06/01/24 10:52) Confusion morphine [MORPHINE] Allergy (Severe, Verified 06/01/24 10:52) CONSTIPATION, stomach upset ibuprofen [From MOTRIN] Adverse Reaction (Intermediate, Verified 06/01/24 10:52) ABD PAIN cyclobenzaprine [From FLEXERIL] Adverse Reaction (Mild, Verified 06/01/24 10:52) DRY MOUTH influenza H1N1 Allergy (Intermediate, Uncoded 06/01/24 10:52) Weakness HPI Comments Details: Patient presents with a significant other. He was doing some strenuous activities and developed some discomfort actually in the groin area below his hernia repair site. He presents here because of concern. Otherwise he has been doing well. He is tolerating a diet. Having regular bowel habits. He has no other GI issues or complaints. He is increasing his activity level. He also has been doing moderate heavy lifting regarding groceries and catheter Patient lives in the 4th floor and has no elevator so he has to climb stairs regularly. [facility] Medical History Left inguinal hernia (04/26/24) Left groin hernia Screening PSA (prostate specific antigen) Rib pain on left side Constipation GERD (gastroesophageal reflux disease) Depression with anxiety Asthma Colon cancer screening Pelvis, multiple open fractures with disruption of pelvic [place] Failed spinal cord stimulator Surgical History History of esophagogastroduodenoscopy (EGD) H/O colonoscopy History of arthroscopy of right knee History of back surgery H/O pelvic surgery H/O enucleation of left eyeball Social History Are you a primary nursing care attendant to a significant other at home: No Do you presently have visiting nurse or other home services: No Alcohol intake: never Patient Tobacco Use Status: Current everyday Tobacco user Tobacco use type: Cigarette Cigarettes Per Day: 10 Physical Exam Vital Signs: Last Vital Signs Pulse 62 06/01/24 10:50 Resp 16 06/01/24 10:50 BMI result Body Mass Index 25.0 GI Other: Patient was examined both supine and standing with Valsalva. Abdomen is soft. Right groin negative. Left groin incision clean dry intact healing very well. No evidence of any recurrence or infection. Patient has tenderness in the upper thigh area/groin area well away from his hernia repair. Assessment & Plan Assessment & Plan (1) Postop check: Code(s): Z09 - Encounter for follow-up examination after completed treatment for conditions other than malignant neoplasm Category: Surgical Plan At present, patient will be treated conservatively. No acute surgical interventions warranted at this time. He has been strongly encouraged to avoid strenuous activities, ice or warm compresses to the area, Motrin or Tylenol for discomfort and will otherwise follow-up p.r.n.. All questions answered. Coding Level of Care Code Global (35665) Diagnoses Postop check Z09
[2024-06-01 10:50] VITALS: PULSE 62; RESP 16; BMI 25.0
== END 2024-06-01 11:08 | disposition home or self-care (01) ==
LOC: HO.HGS 10:45
PROVIDERS: PCP Family Medicine; Visit Provider Surgery
DX: Z09 Encounter for follow-up examination after completed treatment for conditions other than malignant neoplasm (principal)
CPT/HCPCS: 99024

== ENCOUNTER → 2024-06-01 10:44 | Outpatient (BNVA) | payer MEDICARE, MEDICAID, SELFPAY | PROVIDERS: PCP Family Medicine; Visit Provider Surgery | DX: Z09 Encounter for follow-up examination after completed treatment for conditions other than malignant neoplasm (principal); Z98.890 Other specified postprocedural states | CPT/HCPCS: 99212 ==

== ENCOUNTER 2024-06-03 15:58 | Outpatient (AMB) | payer MEDICARE, SELFPAY ==
--- NOTE | 2024-06-03 16:02 | A.OFFVIS_ITS ---
Vital Signs 06/03/24 16:03 Height 5 ft 2 in Weight 132 lb BMI 24.1 BP 135/95 H Blood Pressure Location Lt brachial Position Sitting Pulse 65 Intake Visit Reasons: s/p EGD Intake Note: Hosea presents in office today in follow up s/p EGD. CC: Patient reports occasional acid reflux and occasional upset. Level Vial Inspector And Tester Required: Yes Allergies amitriptyline Allergy (Severe, Verified 06/03/24 16:16) Confusion morphine [MORPHINE] Allergy (Severe, Verified 06/03/24 16:16) CONSTIPATION, stomach upset ibuprofen [From MOTRIN] Adverse Reaction (Intermediate, Verified 06/03/24 16:16) ABD PAIN cyclobenzaprine [From FLEXERIL] Adverse Reaction (Mild, Verified 06/03/24 16:16) DRY MOUTH influenza H1N1 Allergy (Intermediate, Uncoded 06/01/24 10:52) Weakness HPI HPI s/p EGD: Details: Assessment & Plan (1) Upper abdominal pain: Code(s): R10.10 - Upper abdominal pain, unspecified Category: Medical (2) Rib pain on left side: Code(s): R07.81 - Pleurodynia Category: Medical (3) GERD (gastroesophageal reflux disease): Code(s): K21.9 - Gastro-esophageal reflux disease without esophagitis Category: Medical (4) Constipation: Code(s): K59.00 - Constipation, unspecified Category: Medical Plan E[place]an # translates per pt request. He has been having upper abd pain with bloating after eating. Still, the pain has not returned as severely as he had it and at that time is responded to prednisone and Celebrex. He had one other bad flair when he drank a little shot of ETOH that his brother in law insisted on and this caused pain - but this has since resolved. He was never contacted regarding the EGD, so I send another note. For now we will continue the omeprazole, senna and simethicone as the latter has helped with the bloating in that it is not as severe are prior. ROV 3 mos. EGD 03/10/24 Findings: Larynx:normal Esophagus: GE junction at 37 cm, diaphragm hiatus at 40 cm, normal mucosa, bx taken from distal esophagus, 3 cm sliding hiatal hernia noted Stomach: patchy erythema . Biopsies were obtained. Grade 2 flap valve on retroflexed examination of the cardia. Duodenum: Normal bulb and descending duodenum, bx taken Intervention: Biopsies as noted above, Impression/Findings: gastritis hiatal hernia -small PLAN: cont with PPI GERD precautions avoid food triggers BIOPSY Received: 03/10/24 ADDENDUM REPORT Addendum Addendum #1 Immunostain for H. pylori on B is negative. Control stains appropriately. Electronically Signed By: Monse Jim 03/12/24 0937 Diagnosis A. Duodenum, biopsy: Duodenal mucosa with preserved villi and no specific change. B. Stomach, biopsy: Gastric antral mucosa with minimal chronic inactive gastritis; negative for intestinal metaplasia and dysplasia. C. Esophagus, distal, biopsy: Squamous mucosa with no specific change; no columnar mucosa present. Comment: (B): Immunostain for H. pylori pending; addendum to follow TODAY'S VISIT He recently had 2 inguinal hernia repairs via Dr. Hobson in the [facility]. He still has some stabbing in the area but he is also still healing. He is adherent to his bid 20mg o2o but still has burning with eating. Likely r/t the sliding HH and recent surgery. He also has frequent dyspepsia. This is magdalena so with his am coffee, despite it being decaf. He feels that the senna continues to work well. ROV 6 weeks. If ok sync up next appt with his 's 6 mos. [facility] Medical History (Updated 06/03/24 @ 16:34 by MARGARET Hill) Left inguinal hernia (04/26/24) Left groin hernia Screening PSA (prostate specific antigen) Rib pain on left side Constipation GERD (gastroesophageal reflux disease) Depression with anxiety Asthma Colon cancer screening Pelvis, multiple open fractures with disruption of pelvic [place] Failed spinal cord stimulator Surgical History History of esophagogastroduodenoscopy (EGD) H/O colonoscopy History of arthroscopy of right knee History of back surgery H/O pelvic surgery H/O enucleation of left eyeball Social History Are you a primary ambulatory care coordinator to a significant other at home: No Do you presently have visiting nurse or other home services: No Alcohol intake: never Patient Tobacco Use Status: Current everyday Tobacco user Tobacco use type: Cigarette Cigarettes Per Day: 10 Review of Systems Const Denies fatigue, Denies fever(s), Denies night sweats, Denies poor appetite and Denies weight loss ENT Reports Normal hearing present, Denies dental pain, Denies dysphagia, Denies hearing loss, Denies mouth pain, Denies odynophagia, Denies throat swelling, Denies tongue swelling and Reports other (Dentition adequate) Card Reports no additional complaints Resp Reports no additional complaints GI Details: Reports abdominal pain, Denies melena, Denies bloating, Denies hematochezia, Reports constipation, Denies GI cramping, Denies dysphagia, Denies excessive flatus, Denies early satiety, Reports heartburn, Denies diarrhea, Denies nausea, Denies odynophagia, Denies vomiting and Denies hematemesis Skin/Breast Denies pruritus, Denies lesions, Denies rash and Denies jaundice Neuro Reports Normal hearing present and Denies Abnormal speech present Endo Denies fatigue Aller/Immun Denies throat swelling and Denies tongue swelling Physical Exam Vital Signs: Last Vital Signs Pulse 65 06/03/24 16:03 BP 135/95 H 06/03/24 16:03 BMI result Body Mass Index 24.1 Const General: cooperative, no acute distress, well developed and well groomed Nutritional Appearance: average body habitus and well nourished Orientation/consciousness: oriented to person, oriented to place and oriented to time Limitations: language barrier HEENT Head: Yes normocephalic and Yes atraumatic Eyes Other: left eye closed General: appearance abnormal, both eyes and dysmorphic Pupils: Equal, round and reactive pupils present Neck Neck: Yes normal visual inspection and Yes no lymphadenopathy Thyroid: Thyroid normal Resp Effort & Inspection: normal respiratory effort and able to speak in complete sentences Auscultation: clear to auscultation bilaterally Cardio Rate: regular rate Rhythm: regular rhythm Heart sounds: Normal, physiologic split S2 sound present Peripheral pulses: radial pulses present and posterior tibial pulses present GI Inspection: No distended and No Abdominal panniculus present Palpation (GI): Soft to palpation, nontender, no guarding, not rigid and No hepatosplenomegaly present Percussion: Yes normal to percussion Auscultation: normal bowel sounds Rectal Exam - Male: Yes deferred Skin General skin exam: no rashes or lesions noted, turgor normal, skin not dry, no jaundice, No spider nevi and no striae Rashes: no rashes Nails: normal Neuro General: oriented to person, oriented to place and oriented to time Cranial nerves: Yes Equal, round and reactive pupils present and Yes Normal hearing present Speech: No Abnormal speech present Extrem General: Yes normal to inspection, No clubbing, No cyanosis and No edema Psych Appearance: grossly normal and well kempt Mental Status: mental status grossly normal Speech and movement: Normal speech and movement present Affect: normal affect Attitude: cooperative Thought process: Normal thought process present and not confabulating Thought content: Normal thought content present Insight: Limited insight present (Psych) Judgement: Limited judgement present (Psych) Assessment & Plan Assessment & Plan (1) GERD (gastroesophageal reflux disease): Code(s): K21.9 - Gastro-esophageal reflux disease without esophagitis Category: Medical (2) Constipation: Code(s): K59.00 - Constipation, unspecified Category: Medical (3) GERD (gastroesophageal reflux disease): Code(s): K21.9 - Gastro-esophageal reflux disease without esophagitis Category: Medical Plan He recently had 2 inguinal hernia repairs via Dr. Hobson [place]. He still has some stabbing in the area but he is also still healing. He is adherent to his bid 20mg o2o but still has burning with eating. Likely r/t the sliding HH and recent surgery. He also has frequent dyspepsia. This is magdalena so with his am coffee, despite it being decaf. He is willing to watch and wait at this point before we consider an increase in his omeprazole dose. He feels that the senna continues to work well. ROV 6 weeks. If ok sync up next appt with his 's 6 mos. Medications: New omeprazole 40 mg PO BID 60 caps 6RF 30 days K21.9 - Gastro-esophageal reflux disease without esophagitis Discontinued omeprazole Discontinued Reason: Doctor's Order 20 mg PO BID 60 caps 6RF K21.9 - Gastro-esophageal reflux disease without esophagitis Coding Level of Care Code Est Pt Level 3 (07134) Diagnoses GERD (gastroesophageal reflux disease) K21.9 Constipation K59.00
[2024-06-03 16:03] VITALS: BP 135/95; PULSE 65; BMI 24.1
== END 2024-06-10 09:12 | disposition home or self-care (01) ==
PROVIDERS: PCP Family Medicine; Visit Provider Nurse Practitioner
DX: K21.9 Gastro-esophageal reflux disease without esophagitis (principal); K59.00 Constipation, unspecified
CPT/HCPCS: 99213

== ENCOUNTER → 2024-06-03 15:58 | Outpatient (BNVA) | payer MEDICARE, SELFPAY | PROVIDERS: PCP Family Medicine; Visit Provider Nurse Practitioner | DX: K21.9 Gastro-esophageal reflux disease without esophagitis (principal); K59.00 Constipation, unspecified; R10.10 Upper abdominal pain, unspecified; R07.81 Pleurodynia | CPT/HCPCS: 99212 ==

== ENCOUNTER 2024-08-19 14:46 | Outpatient (REF) | payer MEDICARE, MEDICAID, SELFPAY ==
[2024-08-19 15:17] LABS: MANUAL DIFF FLAG NO
[2024-08-19 17:02] LABS: Basophils Absolute Auto 0.1 X10*3/uL (0.0-0.2); Basophils Percent Auto 0.8 % (0-2); Eosinophils Absolute Auto 0.1 X10*3/uL (0.0-0.4); Hematocrit 43.7 % (42.0-52.0); Hemoglobin 14.7 g/dl (14.0-18.0); Imm Gran Abs Auto 0.03 X10*3/uL (0.00-0.03); Imm Gran Pct Auto 0.3 % (0.0-0.4); Lymphocytes Absolute Auto 2.9 X10*3/uL (1.2-4.9); Lymphocytes Percent Auto 27.2 % (20-40); Mean Corpuscular HGB Conc 33.6 g/dl (31.0-36.0); Mean Corpuscular Hemoglobin 30.6 pg (27.0-33.0); Mean Corpuscular Volume 90.9 fL (80.0-98.0); Monocytes Absolute Auto 0.4 X10*3/uL (0.1-1.2); Monocytes Percent Auto 4.2 % (2-11); Neutrophils Percent Auto 66.5 % (45-73); Platelet Count 301 X10*3/uL (160-400); Red Blood Count 4.81 X10*6/uL (4.60-5.80); Red Cell Distribution Width 13.3 % (11.0-16.0); White Blood Count 10.5 X10*3/uL (4.8-10.8)
--- OUTSIDE RECORDS SUMMARY | 2024-08-19 17:20 | XMS_ITS | Encounter Summary ---
Author Organization [employer] Address [address] [facility] 7[address] [place] [address] Care Team Providers Care Medical Assisting Program Director Name Role Phone Mely Vasquez MD Primary Care Provider [phone] Encounter Details Date Type Department Care Team (Latest Contact Info) Description 08/03/2024 3:00 PM EST Office Visit [facility] [address], [place] [phone] Mely Vasquez MD [address] [place], [place] [phone] Bilateral inguinal hernia without obstruction or gangrene, recurrence not specified (Primary Dx); Constipation, unspecified constipation type; Chronic GERD; Benign prostatic hyperplasia, unspecified whether lower urinary tract symptoms present; Chronic low back pain, unspecified back pain laterality, unspecified whether sciatica present; Nicotine dependence with current use; Hypertriglyceridemia; HSV (herpes simplex virus) anogenital infection; Hypertension, unspecified type; Encounter for immunization; At increased risk for cardiovascular disease; Herpes simplex Social History Tobacco Use Types Packs/Day Years Used Date Smoking Tobacco: Every Day Cigarettes Passive Smoke Exposure: Current Smokeless Tobacco: Never Tobacco Cessation:Ready to Q uit: Not Asked; Counseling Given: Not Answered Comments:8-9 cigs/daily; working on quitting. On chantix but 1mg made him sick. Pcp notified. Alcohol Use Standard Drinks/Week Comments Never 0 (1 standard drink = 0.6 oz pur e alcohol) Depression Answer Date Recorded Patient Health Questionnaire-9 Score 0 02/26/2023 Housing Stability Answer Date Recorded What is your housing situation today? I have nydia orellana 05/15/[address] you li ve. Do you have problems with any of the following? None of the above 05/15/2023 Food Insecurity Answer Date Recorded Within the past 12 months, y ou worried that your food would run out before you got money to buy more: Never True 05/15/2023 Within the past 12 months,th e food you bought just didn't last and you didn't have enough money to get more: Never True Transportation Answer Date Recorded In the past 12 months, has l ack of transportation kept you from medical appts, meetings, work or from getting things needed for daily living? No 05/15/2023 Utilities Answer Date Recorded In the past 12 months, has t he electric, gas, oil or water company threatened to shut off services in your home? No 05/15/2023 Depression Answer Date Recorded Patient Health Questionnaire-2 Score 0 02/26/2023 Sex and Gender Information Value Date Recorded Sex Assigned at Male 05/28/2022 10:23 AM EDT Legal Sex Male 10:23 AM EDT Gender Identity Male 05/28/2022 10:23 AM EDT Sexual Orientation Straight 05/28/2022 10 :23 AM EDT documented as of this encounter Last Filed Vital Signs Vital Sign Reading Time Taken Comments Blood Pressure 140/90 08/03/2024 3:26 PM EST Pulse 66 08/03/2024 3:07 PM EST Temperature 36.5 ??C (97.7 ??F) 08/03/2024 3:07 PM ES T Respiratory Rate 20 08/03/2024 3:07 PM EST Oxygen Saturation 97% 08/03/2024 3:07 PM EST Inhaled Oxygen Concentration - - Weight 58.6 kg (129 lb 3.2 oz) 08/03/2024 3:07 P M EST Height 157.5 cm (5' 2 ) 08/03/2024 3:07 PM EST Body Mass Index 23.63 08/03/2024 3:07 PM EST documented in this encounter Progress Notes * Mely Vasquez MD - 08/03/2024 3:00 PM EST Subjective Hosea Mallory is a 48 y.o. male who has chronic los back pain, asthma, GERD, and BPH, and patient presents for follow up of chronic conditions. Background: Our last encounter was 04/06/2024. Patient was anticipating to have a surgery for inguinal hernia. Hewas smoking 8 cigarettes per day. Patient reported elevated BP at home. Patient wanted to get a PROBATION AGENT. Interval history: Patient underwent open left inguinal hernia repair on 04/24/24, performed by Dr. Hobson. He was seen by carriage feeder 06/03/24 after EGD evariation. He was told to continue omeprazol 40 mg twice daily. Today: The pt reports that after coming home and taking a nap, he woke up and had a cramp, swelling, and pain in one of his legs. The cramp is coming from the thigh area. He has an appointment on 08/14/2024 for the problem. Not constant. Not associated with activity. He takes his blood pressure at home and says that it is usually around 140/90. He says he smokes around 5 cigarettes a day. He is due for his flu, COVID, and hepatitis vaccines. He will get the flu and hepatitis vaccines today. Review of Systems Constitutional: Negative for activity change, appetite change and fever. Respiratory: Negative for shortness of breath. Cardiovascular: Negative for chest pain. Musculoskeletal: Leg cramp, swelling, and pain Objective Vitals: 08/03/24 1507 08/03/24 1526 BP: (!) 135/91 140/90 BP Location: Left arm Patient Position: Sitting BP Cuff Size: Adult Pulse: 66 Resp: 20 Temp: 97.7 ??F (36.5 ??C) TempSrc: Temporal SpO2: 97% Weight: 129 lb 3.2 oz (58.6 kg) Height: 5' 2 (1.575 m) Physical Exam Constitutional: General: He is not in acute distress. Appearance: Normal appearance. He is not ill-appearing. HENT: Head: Normocephalic and atraumatic. Mouth/Throat: Mouth: Mucous membranes are moist. Eyes: Extraocular Movements: Extraocular movements intact. Pupils: Pupils are equal, round, and reactive to light. Cardiovascular: Rate and Rhythm: Normal rate and regular rhythm. Heart sounds: No murmur heard. Pulmonary: Effort: Pulmonary effort is normal. No respiratory distress. Breath sounds: Normal breath sounds. No wheezing or rhonchi. Skin: General: Skin is warm. Neurological: Mental Status: He is alert. Mental status is at baseline. Psychiatric: Mood and Affect: Mood normal. Results: Lab Results Component Value Date NA 142 03/17/2024 K 3.8 03/17/2024 CL 112 (H) 03/17/2024 CO2 20 (L) 03/17/2024 BUN 7 (L) 03/17/2024 CREATININE 0.80 03/17/2024 CRCLCALCPH 87.2 03/17/2024 EGFR >60 03/17/2024 GLUCOSE 80 03/17/2024 TOTALBILIRUB 0.4 03/17/2024 AST 13 03/17/2024 ALT 9 03/17/2024 TOTPROTEIN 7.2 03/17/2024 ALB 4.4 03/17/2024 ALP 66 03/17/2024 Lab Results Component Value Date TRIG 177 (H) 08/27/2023 CHOL 162 08/27/2023 LDLCHOLCAL 94 08/27/2023 HDL 33 (L) 08/27/2023 Lab Results Component Value Date HGBA1C 4.9 08/27/2023 Lab Results Component Value Date WBC 7.6 03/17/2024 HGB 15.6 03/17/2024 HCT 46.6 03/17/2024 PLT 327 03/17/2024 MCV 90.0 03/17/2024 The 10-year ASCVD risk score (Jillian SALCEDO, et al., 2019) is: 10.5% Values used to calculate the score: Age: 48 years Sex: Male Is Non- : No Diabetic: No Tobacco smoker: Yes Systolic Blood Pressure: 140 mmHg Is BP treated: Yes HDL Cholesterol: 33 mg/dL Total Cholesterol: 162 mg/dL Screening and Health Care Maintenance: PHQ-2/9 Score: No data recorded YUMIKO-7 Score: No data recorded Health Maintenance Due Topic Date Due Hepatitis C Screening Never done Depression Screening 02/27/2024 Influenza Vaccine (1) Never done COVID-19 Vaccine ( season) 2024 Assessment/Plan Problem List Items Addressed This Visit Chronic low back pain - Prescribed oxycodone Herpes simplex - recurrent - continue suppressive therapy Hypertriglyceridemia Nicotine dependence with current use -Failed on nicotine replacement treatment: He tried patches, gums, and Nicotrol nasal spray -Adverse reaction to varenicline 1mg . Pt developed stomach pain when it was increased from 0.5 to 1 mg. He does not want to restart at lower dose -Pt reports he smokes around 5 cigarettes a day -Continue working on smoking cessation Hypertension - Goal BP <140/90 per JNC-8, < 130/80 per ACC/AHA guideline, borderline BP today - Cont working on lifestyle modifications - Discussed about smoking cessation - Start valsartan 40 mg daily - Tamsulosin is prescribed by urologist - patient was advised to check BP at home and take a picture of the monitor - return for BP check with our nurse in 3 weeks. If SBP is > 140 at home, will further increase valsartan to 80 mg daily Chronic GERD - Followed by [facility], last seen in May 2024, upcoming follow up appointment in Jul 2024 - EGD in Feb 2024, small hiatal hernia and minimal gastritis - Continue Omeprazole 20mg BID - work on smoking cessation - avoid NSAIDs - H. Pylori test was negative in October 2023 Constipation - in a setting of chronic oxycodone use - continue senna - fiber-rich diet BPH (benign prostatic hyperplasia) - seen by urologist, [facility] - patient states he was prescribed tamsulosin for a short-term only. Will check the treatment plan - tamsulosin will help his BP as well At increased risk for cardiovascular disease - 10 year ASCVD risk is > 10%, mainly due to smoking and elevated BP - continue working on smoking cessation - discussed about statin therapy if his BP remains elevated - consider coronary calcium score - consider discussing about ASA Inguinal hernia - Primary - left inguinal hernia surgery by [facility] on 04/24/24 Other Visit Diagnoses HSV (herpes simplex virus) anogenital infection Relevant Medications valACYclovir (Valtrex) 500 MG tablet Encounter for immunization Allergies Allergen Reactions Amitriptyline Other reaction(s): Confusion Ibuprofen Diarrhea Influenza A (H1n1) Monovalent Vaccine Other reaction(s): Weakness Other Reaction(s): Weakness Influenza Vaccines Diarrhea Morphine Diarrhea Varenicline Other Current Outpatient Medications Medication Instructions acetaminophen (TYLENOL) 1,000 mg, Oral, Every 6 hours PRN albuterol 108 (90 Base) MCG/ACT inhaler every 4 to 6 hours ALPRAZolam (XANAX) 0.5 mg, Oral, Daily PRN Blood Pressure kit 1 each, Does not apply, 2 times daily cetirizine (ZYRTEC) 10 mg, Oral, Every morning cholecalciferol (Vitamin D-3) 50 MCG (1999 UT) capsule TAKE 1 CAPSULE BY MOUTH ONCE DAILY fluticasone (Flonase) 50 MCG/ACT nasal spray SHAKE LIQUID AND USE 1 SPRAY IN EACH NOSTRIL EVERY DAY fluticasone furoate (Arnuity Ellipta) 200 MCG/ACT inhaler 1 puff, Inhalation, Daily, Rinse mouth with water after use to reduce aftertaste and incidence of candidiasis. Do not swallow. montelukast (SINGULAIR) 10 mg, Oral, Every evening naloxone (Narcan) 4 mg/0.1 mL nasal spray 0.1 mL, Nasal Nicotine (Nicotrol NS) 10 MG/ML solution SPRAY ONCE IN EACH NOSTRIL UP TO 5 TIMES PER HOUR, NOT TO EXCEED 40 TIMES A DAY omega-3 (Fish Oil) 1000 MG capsule TAKE 1 CAPSULE BY MOUTH DAILY omeprazole (PRILOSEC) 20 mg, Oral, 2 times daily oxyCODONE (ROXICODONE) 15 mg, Oral, Every 8 hours PRN senna (Senokot) 8.6 MG tablet TAKE 2 TABLETS BY MOUTH AT BEDTIME NEEDED FOR CONSTIPATION tamsulosin (FLOMAX) 0.4 mg, Oral, Daily traZODone (DESYREL) 50 mg, Oral, Nightly PRN valACYclovir (Valtrex) 500 MG tablet Take 1 tablet by mouth every day valsartan (DIOVAN) 40 mg, Oral, Daily Follow-up: 3 months or sooner if any problem arises. Scribe Attestation: Ian Daniel, am serving as a scribe to document services personally performed by Mely Vasquez MD,based on the patient's response to questions by provider and provides statements to me. Physicians Attestation: Mely Daniel, have reviewed the information by the scribe, Daniel Arrington, for accuracy and agree with its content. documented in this encounter Miscellaneous Notes * Assessment & Plan Note - Mely Vasquez MD - 08/09/2024 10:44 AM ESTAssociated Problem(s): Herpes simplex - recurrent - continue suppressive therapy * Assessment & Plan Note - Mely Vasquez MD - 08/09/2024 10:41 AM ESTAssociated Problem(s): At increased risk for cardiovascular disease - 10 year ASCVD risk is > 10%, mainly due to smoking and elevated BP - continue working on smoking cessation - discussed about statin therapy if his BP remains elevated - consider coronary calcium score - consider discussing about ASA * Assessment & Plan Note - Mely Vasquez MD - 08/09/2024 10:40 AM ESTAssociated Problem(s): Hypertension - Goal BP <140/90 per JNC-8, < 130/80 per ACC/AHA guideline, borderline BP today - Cont working on lifestyle modifications - Discussed about smoking cessation - Start valsartan 40 mg daily - Tamsulosin is prescribed by urologist - patient was advised to check BP at home and take a picture of the monitor - return for BP check with our nurse in 3 weeks. If SBP is > 140 at home, will further increase valsartan to 80 mg daily * Assessment & Plan Note - Ian Lino - 08/03/2024 3:20 PM ESTAssociated Problem(s): Nicotine dependence with current use -Failed on nicotine replacement treatment: He tried patches, gums, and Nicotrol nasal spray -Adverse reaction to varenicline 1mg . Pt developed stomach pain when it was increased from 0.5 to 1 mg. He does not want to restart at lower dose -Pt reports he smokes around 5 cigarettes a day -Continue working on smoking cessation * Assessment & Plan Note - Ian Lino - 08/03/2024 3:19 PM ESTAssociated Problem(s): Chronic low back pain - Prescribed oxycodone * Assessment & Plan Note - Ian Lino - 08/03/2024 3:19 PM ESTAssociated Problem(s): BPH (benign prostatic hyperplasia) - seen by urologist, [facility] - patient states he was prescribed tamsulosin for a short-term only. Will check the treatment plan - tamsulosin will help his BP as well * Assessment & Plan Note - Ian Lino - 08/03/2024 3:19 PM ESTAssociated Problem(s): Inguinal hernia - left inguinal hernia surgery by Joce on 04/24/24 * Assessment & Plan Note - Ian Lino - 08/03/2024 3:18 PM ESTAssociated Problem(s): Constipation - in a setting of chronic oxycodone use - continue senna - fiber-rich diet * Assessment & Plan Note - Ian Lino - 08/03/2024 3:18 PM ESTAssociated Problem(s): Chronic GERD - Followed by [facility], last seen in May 2024, upcoming follow up appointment in Jul 2024 - EGD in Feb 2024, small hiatal hernia and minimal gastritis - Continue Omeprazole 20mg BID - work on smoking cessation - avoid NSAIDs - H. Pylori test was negative in October 2023 documented in this encounter Plan of Treatment Upcoming Encounters Date Type Department Care Team (Late st Contact Info) Description 08/31/2024 1:00 PM EST Clinical Support [facility] [address] [place] [address] 09/28/2024 1:30 PM EST Telemedicine [facility] PEDS [address] [place] [address] Liset Cage, RN [address] [place] [address] documented as of this encounter Visit Diagnoses Diagnosis Bilateral inguinal hernia without obstruction or gangrene, recurrence not specified- Primary Constipation, unspecified constipation type Chronic GERD Benign prostatic hyperplasia, unspecified whether lower urinary tract symptoms present Chronic low back pain, unspecified back pain laterality, unspecified whether sciatica present Nicotine dependence with current use Hypertriglyceridemia Pure hyperglyceridemia HSV (herpes simplex virus) anogenital infection Herpes simplex without mention of complication Hypertension, unspecified type Encounter for immunization At increased risk for cardiovascular disease Herpes simplex Herpes simplex without mention of complication documented in this encounter Additional Health Concerns Assessment Noted Time PHQ-9 Depression Total Score: 0 02/27/20 23 3:09 PM EDT documented as of this encounter Care Teams Medical Assisting Program Director Relationship Specialty Start Date End Date Mely Vasquez MD [address] [place] [address] PCP - General Family Medicine 05/11/21 documented as of this encounter
--- OUTSIDE RECORDS SUMMARY | 2024-08-19 17:20 | XMS_ITS | Encounter Summary ---
Author Organization [employer] Address [address] [facility] [address] [place] [address] Care Team Providers Care Inclusion Specialist Name Role Phone Mely Vasquez MD Primary Care Provider [phone] Reason for Visit * Reason Onset Date Comments Med Refill 03/20/2024 Encounter Details Date Type Department Care Team ([facility] st Contact Info) Description 03/20/2024 Telephone [facility] [address] [place], [place] [phone] Mely Vasquez MD [address] [place], [place] [phone] Med Refill Social History Tobacco Use Types Packs/Day Years Used Date Smoking Tobacco: Every Day Cigarettes Passive Smoke Exposure: Current Smokeless Tobacco: Never Comments:8-9 cigs/daily; wor bruce on quitting. On chantix but 1mg made him sick. Pcp notified. Alcohol Use Standard Drinks/Week Comments Never 0 (1 standard drink = 0.6 oz pur e alcohol) Depression Answer Date Recorded Patient Health Questionnaire-9 Score 0 02/26/2023 Housing Stability Answer Date Recorded What is your housing situation today? I have nydia esteban 05/15/[address] you li [...] AM EDT documented as of this encounter Miscellaneous Notes * Telephone Encounter - Hugo Meraz - 03/20/2024 8:51 AM EDT TC from pt requesting medication refill. Medications needing refill: oxyCODONE (Roxicodone) 15 MG immediate release tablet To be sent to: [facility]/pharmacy #[id number] documented in this encounter Plan of Treatment Upcoming Encounters Date Type Department Care Team (Late st Contact Info) Description 08/31/2024 1:00 PM EST Clinical Support [facility] [address] [place] [address] 09/28/2024 1:30 PM EST Telemedicine [facility] [address] [place] [address] Liset Cage RN [address] [place] [address] documented as of this encounter Visit Diagnoses Not on filedocumented in this encounter Additional Health Concerns Assessment Noted Time PHQ-9 Depression Total Score: 0 02/27/20 23 3:09 PM EDT documented as of this encounter Care Teams Inclusion Specialist Relationship Specialty Start Date End Date Mely Vasquez MD [address] [place] [address] PCP - General Family Medicine 05/11/21 documented as of this encounter
--- OUTSIDE RECORDS SUMMARY | 2024-08-19 17:20 | XMS_ITS | Encounter Summary ---
Author Organization [employer] Address [address] [facility] [address] [place] [address] Care Team Providers Care Make Ready Worker Name Role Phone Mely Vasquez MD Primary Care Provider [phone] Reason for Visit * Reason Onset Date Comments Reschedule 12/04/2023 Encounter Details Date Type Department Care Team ([facility] st Contact Info) Description 12/04/2023 Telephone [facility] [address] [place], [place] [phone] Mely Vasquez MD [address] [place], [place] [phone] Reschedule Social History Tobacco Use Types Packs/Day Years [...] is your housing situation today? 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 documented in this encounter Plan of Treatment Upcoming Encounters Date Type Department Care Team (Late st Contact Info) Description 08/31/2024 1:00 PM EST Clinical Support [facility] MEDICINE [address] [place] [address] 09/28/2024 1:30 PM EST Telemedicine [facility] MED [facility] PEDS [address] [place] [address] Liset Cage, RN [address] [place] [address] documented as of this encounter Visit Diagnoses Not on filedocumented in this encounter Additional Health Concerns Assessment Noted Time PHQ-9 Depression Total Score: 0 02/27/20 23 3:09 PM EDT documented as of this encounter Care Teams Make Ready Worker Relationship Specialty Start Date End Date Mely Vasquez MD [address] [place] [address] PCP - General Family Medicine 05/11/21 documented as of this encounter
--- OUTSIDE RECORDS SUMMARY | 2024-08-19 17:20 | XMS_ITS | Clinical Summary ---
Author Organization [employer] Address [address] [facility] [address] [place] [address] Care Team Providers Care Homemaking Rehabilitation Consultant Name Role Phone Mely Vasquez MD Primary Care Provider [phone] Allergies Active Allergy Reactions Criticality Noted Date Comments Amitriptyline High 10/09/2022 Other reaction(s): Confusion Ibuprofen Diarrhea High 08/08/2018 Influenza A (H1n1) Monovalent Vaccine High 10/05/2022 Other reaction(s): Weakness Other Reaction(s): Weakness Influenza Vaccines Diarrhea 07/31/2022 Morphine Diarrhea 08/08/2018 Varenicline Other 02/27/2023 Medications cholecalcifero l (Vitamin D-3) 50 MCG (1999) capsuleIndicat ions:Vitamin D deficiency TAKE 1 CAPSULE BY MOUTH ONCE DAILY 90 capsule 3 08/28/19 23 Active omega-3 (Fish Oil) 1000 MG capsuleIndicat ions:Hypertrig lyceridemia TAKE 1 CAPSULE BY MOUTH DAILY 90 capsule 1 08/28/19 23 Active ALPRAZolam (Xanax) 0.5 MG tablet Take 0.5 mg by mouth if needed each day. 10/26/19 23 Active fluticasone (Flonase) 50 MCG/ACT nasal spray SHAKE LIQUID AND USE 1 SPRAY IN EACH NOSTRIL EVERY DAY 06/01/20 22 Active montelukast (Singulair) 10 MG tablet Take 10 mg by mouth in the evening. 09/24/19 23 Active naloxone (Narcan) 4 mg/0.1 mL nasal spray Administer 0.1 mL into affected nostril(s). 05/17/20 21 Active omeprazole (PriLOSEC) [address] capsule Take 20 mg by mouth 2 times daily. 03/26/20 23 Active traZODone (Desyrel) 50 MG tablet Take 50 mg by mouth if needed at bedtime. 08/07/19 Active senna (Senokot) 8.6 MG tablet TAKE 2 TABLETS BY MOUTH AT BEDTIME NEEDED FOR CONSTIPATION 07/02/20 Active albuterol 108 (90 Base) MCG/ACT inhaler every 4 to 6 hours 06/09/20 Active fluticasone furoate (Arnuity Ellipta) 200 MCG/ACT inhaler Inhale 1 puff in the morning. Rinse mouth with water after use to reduce aftertaste and incidence of candidiasis. Do not swallow. 1 each 5 09/20/19 24 2024 Active Blood Pressure kit 1 each 2 times daily. 1 kit 11/13/19 24 2024 Active acetaminophen (Tylenol) 500 MG tablet Take 2 tablets (1,000 mg) by mouth every 6 (six) hours if needed for moderate pain or fever for up to 25 doses. 50 tablet 02/05/20 24 Active tamsulosin (Flomax) 0.4 MG 24 hr capsule Take 0.4 mg by mouth Once per day. 01/23/20 24 Active cetirizine (ZyrTEC) 10 MG tabletIndicati ons:Chronic rhinosinusitis ,Chronic sinusitis, unspecified location TAKE 1 TABLET BY MOUTH EVERY MORNING 90 tablet 1 04/27/20 24 Active Nicotine (Nicotrol NS) 10 MG/ML solution SPRAY ONCE IN EACH NOSTRIL UP TO 5 TIMES PER HOUR, NOT TO EXCEED 40 TIMES A DAY 40 mL 3 04/27/20 24 Active oxyCODONE (Roxicodone) 15 MG immediate release tabletIndicati ons:Lumbar disc disease Take 1 tablet (15 mg) by mouth every 8 (eight) hours if needed (pain) for up to 28 days. 84 tablet 08/03/19 25 2024 Active valACYclovir (Valtrex) 500 MG tabletIndicati ons:HSV (herpes simplex virus) anogenital infection Take 1 tablet by mouth every day 90 tablet 3 08/03/19 Active valsartan (Diovan) 40 MG tablet Take 1 tablet (40 mg) by mouth Once per day. 90 tablet 3 08/03/19 25 2025 Active valACYclovir (Valtrex) 500 MG tabletIndicati ons:HSV (herpes simplex virus) anogenital infection TAKE 1 TABLET BY MOUTH EVERY DAY 90 tablet 03/24/20 24 2024 Discontinued(R eorder (will not trigger notification to Pharmacy)) oxyCODONE (Roxicodone) 15 MG immediate release tabletIndicati ons:Lumbar disc disease Take 1 tablet (15 mg) by mouth every 8 (eight) hours if needed (pain) for up to 28 days. Do not start before July 07, 2024. 84 tablet 07/07/20 24 2024 Discontinued(R eorder (will not trigger notification to Pharmacy)) oxyCODONE (Roxicodone) 15 MG immediate release tabletIndicati ons:Lumbar disc disease Take 1 tablet (15 mg) by mouth every 8 (eight) hours if needed (pain) for up to 28 days. Do not start before July 07, 2024. 84 tablet 07/07/20 24 2024 Active Problems Problem Noted Date Diagnosed Date Inguinal hernia 04/10/2024 Assessment & Plan (08/09/2024 10:30 AM EST): - left inguinal hernia surgery by Joce on 04/24/24 Assessment & Plan (04/10/2024 6:34 AM EDT): - scheduled for left inguinal hernia on 04/24/24 At increased risk for cardiovascular disease 08/2023 Assessment & Plan (08/09/2024 10:43 AM EST): - 10 year ASCVD risk is > 10%, mainly due to smoking and elevated BP - continue working on smoking cessation - discussed about statin therapy if his BP remains elevated - consider coronary calcium score - consider discussing about ASA Assessment & Plan (04/10/2024 6:37 AM EDT): - 10 year ASCVD risk is 7.5 - 9%, mainly due to smoking and elevated BP - continue working on smoking cessation - discussed about statin therapy if his BP remains elevated Assessment & Plan (12/29/2023 6:10 AM EDT): - 10 year ASCVD risk is 9.2%, mainly due to smoking and elevated BP today - continue working on smoking cessation - will discuss about statin therapy if his BP remains elevated BPH (benign prostatic hyperplasia) 12/24/2023 Assessment & Plan (08/03/2024 3:19 PM EST): - seen by [place]rologist, [facility] - patient states he was prescribed tamsulosin for a short-term only. Will check the treatment plan - tamsulosin will help his BP as well Assessment & Plan (04/10/2024 6:39 AM EDT): - seen by urologist, [facility] - patient states he was prescribed tamsulosin for a short-term only. Will check the treatment plan - tamsulosin will help his BP as well Assessment & Plan (12/24/2023 4:42 PM EDT): - upcoming appointment with urologist Acute myofascial pain 12/19/2023 Depression with anxiety 12/19/2023 Rib pain on left side 12/19/2023 Sciatica 12/19/2023 Abdominal bloating 12/10/2023 Assessment & Plan (12/24/2023 4:42 PM EDT): - H. Pylori test was negative - encouraged healthy diet Assessment & Plan (12/10/2023 3:27 PM EDT): - will check H. Pylori and celiac disease panel - continue current medications - reduce tobacco consumption - follow-up with GI as scheduled Ptosis, left 08/25/2023 Assessment & Plan (08/25/2023 4:57 PM EST): - Hx enucleation - evaluated by ocular specialist and mobile ui designer - treatment will not be covered by his insurance; he will not pursue surgical treatment at this time Phthisical cornea 08/25/2023 Overview (08/25/2023): Assessment & Plan (08/25/2023 5:02 PM EST): Left phthisical Hx enucleation Evaluated by ocular specialist in [place]. Tubular adenoma of colon 08/25/2023 Assessment & Plan (04/07/2024 2:22 PM EDT): 10/08/22 Colonoscopy tubular adenoma Assessment & Plan (08/25/2023 5:02 PM EST): 10/08/22 Colonoscopy tubular adenoma Constipation 08/25/2023 Assessment & Plan (08/03/2024 3:18 PM EST): - in a setting of chronic oxycodone use - continue senna - fiber-rich diet Assessment & Plan (04/07/2024 2:22 PM EDT): - in a setting of chronic oxycodone use - continue senna - fiber-rich diet Assessment & Plan (08/25/2023 5:03 PM EST): - in a setting of chronic oxycodone use - continue senna - fiber-rich diet Allergic rhinitis 12/27/2022 Assessment & Plan (02/27/2023 6:26 AM EDT): - continue montelukast - continue cetirizine - evaluated by ENT - consider evaluation by allergy / neuroscience specialist for allergy test / immunotherapy. Assessment & Plan (12/27/2022 12:16 PM EDT): - continue montelukast - restart cetirizine - consider internal controls specialist for allergy testing / immunotherapy Chronic rhinosinusitis 12/18/2022 Assessment & Plan (02/27/2023 6:21 AM EDT): -Tried antihistamines: loratadine and cetirizine -Seen by ENT specialist -Continue montelukast -Continue cetirizine -Continue nasal spray -Work on smoking cessation Assessment & Plan (12/27/2022 12:14 PM EDT): -Tried antihistamines: loratadine and cetirizine -Seen by ENT specialist -Continue montelukast -Restart cetirizine -Continue nasal spray -Work on smoking cessation Hypertension 12/18/2022 Assessment & Plan (08/09/2024 10:41 AM EST): - Goal BP <140/90 per JNC-8, < [...] further increase valsartan to 80 mg daily Assessment & Plan (04/10/2024 6:39 AM EDT): - Goal BP <140/90 per JNC-8, < 130/80 per ACC/AHA guideline, borderline BP today - Cont working on lifestyle modifications - Discussed about smoking cessation - Recently prescribed tamsulosin by urologist - patient was advised to check BP at home and take a picture of the monitor Assessment & Plan (12/24/2023 4:40 PM EDT): - Goal BP <140/90 per JNC-8, < 130/80 per ACC/AHA guideline, borderline BP today - Cont working on lifestyle modifications - Discussed about smoking cessation - patient was advised to check BP at home and take a picture of the monitor Assessment & Plan (08/25/2023 4:41 PM EST): - Goal BP <140/90 per JNC-8, < 130/80 per ACC/AHA guideline, within acceptable range today - Cont working on lifestyle modifications - Discussed about smoking cessation Assessment & Plan (02/27/2023 6:17 AM EDT): - Goal BP <140/90 per JNC-8, < 130/80 per ACC/AHA guideline, within acceptable range today - Cont working on lifestyle modifications - Discussed about smoking cessation Assessment & Plan (12/18/2022 2:46 PM EDT): Goal BP <140/90, borderline today - Cont working on lifestyle modifications - reassess BP in 3 mo, if persistent elevated will consider pharmacological tx Severe recurrent major depre ssion without psychotic features 12/18/2022 Assessment & Plan (02/27/2023 6:34 AM EDT): -[facility] provider: [facility] -Psychiatrist: Dr. Chavarria -Clinician: Previously Elyssa Serrano, but pt does not have one currently -Pt was previously prescribed: trazodone; diazepam; duloexetine, but has not been taking it as prescribed -Pt states alprazolam was the only effective medication, and now it is being tapered down and switched to clonazepam by psychiatrist -Treatment Hx: --sertraline - incomplete trial --escitalopram - incomplete trial --mirtazapine - pt disliked; bothered me: --citalopram - incomplete trial --amitriptyline - pt perceives that it was ineffective --venlafaxine 37.5 mg - pt was unable to tolerate higher dose - continue following with current [facility] provider Assessment & Plan (12/18/2022 2:48 PM EDT): -[facility] provider: [facility] -Psychiatrist: Dr. Chavarria -Clinician: Previously Elyssa Serrano, but pt does not have one currently -Evaluated by Nicko from [facility] -Pt has an upcoming appt with Dr. Chavarria, 04/09/22 -Pt was previously prescribed: trazodone; diazepam; duloexetine, but has not been taking it as prescribed -Pt states alprazolam was the only effective medication -Treatment Hx: --sertraline - incomplete trial --escitalopram - incomplete trial --mirtazapine - pt disliked; bothered me: --citalopram - incomplete trial --amitriptyline - pt perceives that it was ineffective --venlafaxine 37.5 mg - pt was unable to tolerate higher dose Pt will be referred to another outpatient clinician for counseling. Pt was able to contract his safety today Will prescribe 15 day supply of trazodone 50 mg qhs, alprazolam 0.5 mg daily, and escitalopram 5 mg daily. Chronic GERD 12/18/2022 Assessment & Plan (08/09/2024 10:38 AM EST): - Followed by [facility], last seen in May 2024, upcoming follow up appointment in Jul 2024 - EGD in Feb 2024, small hiatal hernia and minimal gastritis - Continue Omeprazole 20mg BID - work on smoking cessation - avoid NSAIDs - H. Pylori test was negative in October 2023 Assessment & Plan (04/07/2024 2:23 PM EDT): - Followed by [facility], last seen in November 2023 - Continue Omeprazole 20mg BID - work on smoking cessation - avoid NSAIDs - H. Pylori test was negative in October 2023 Assessment & Plan (12/24/2023 4:41 PM EDT): - Followed by [facility], last seen in November 2023 - Continue Omeprazole 20mg BID - work on smoking cessation - avoid NSAIDs - H. Pylori test was negative in October 2023 Assessment & Plan (08/25/2023 4:45 PM EST): - Followed by [facility], last seen in Jun 2023 - Continue Omeprazole 20mg BID - work on smoking cessation - avoid NSAIDs Assessment & Plan (12/18/2022 2:52 PM EDT): Seen by GI, NOVEMBER 2022 -Rx Omeprazole 20mg BID -cont current tx plan -work on smoking cessation -avoid NSAIDs Blurry vision, right eye 12/18/2022 Assessment & Plan (08/25/2023 4:55 PM EST): - seen by mobile ui designer in Mar 2023 - dry eye - recommended appropriate room humidity, artificial tears, increase blinking, Flax seed oil, smoking cessation Assessment & Plan (02/27/2023 6:34 AM EDT): - urgent referral to Dr. Leon - advised to avoid irritation Chronic low back pain 11/05/2022 Assessment & Plan (08/03/2024 3:19 PM EST): - Prescribed oxycodone Herpes simplex 11/05/2022 Assessment & Plan (08/09/2024 10:44 AM EST): - recurrent - continue suppressive therapy Assessment & Plan (12/27/2022 12:16 PM EDT): - recurrent - start suppressive therapy Lumbar disc disease 11/05/2022 Assessment & Plan (08/25/2023 4:50 PM EST): - on chronic opioid treatment with oxycodone 15 mg q8 hours since 07/17/2017. - Nerve stimulator removed on 09/26/[address] Beasley ([facility]). It was placed 7-8 years ago in [place]. -MRI in Feb 2023 showed: 1. Stable postoperative changes status post L5 laminectomies and L5-S1 instrumented posterior fusion. Stable marrow edema of the left L4 articular pillar and pedicle, presumably degenerative/stress related. 2. Stable mild spondylosis of the lumbar spine without significant spinal canal stenosis. 3. At L4-L5, stable moderate left and moderate right neural foraminal stenosis with mild mass effect along the exiting right L4 nerve root and encroachment upon the exiting left L4 nerve root. -Re-evaluated by [facility] provider in May 2023. Dx post-laminectomy syndrome. -Continue judicious use of oxycodone -FORENSIC PSYCHOLOGIST agreement is up to date - Follow up in 3-4 mo or sooner prn Assessment & Plan (02/27/2023 6:20 AM EDT): - on chronic opioid treatment with oxycodone 15 mg q8 hours since 07/17/2017. - Nerve stimulator removed on 09/26/[address] Beasley ([facility]). It was placed 7-8 years ago in [place]. - MRI on 03/01/21 showed: --Postoperative findings related to posterior decompression and instrumented fusion at the L5-S1 level. Nodefinite nerve root compression seen at this level. --At L4-L5 there is moderate right and mild to moderate left neural foraminal stenosis with mild compression of the exiting right L4 and abutment of the exiting left L4 nerve roots. --Cauda equina nerve roots appear mildly disorganized and slightly redundant which is nonspecific but could be seen in the setting of arachnoiditis. -Continue judicious use of oxycodone -FORENSIC PSYCHOLOGIST agreement is up to date - Follow up in 3 mo or sooner prn - recent exacerbation in pain; adding celecoxib for short-term Assessment & Plan (12/18/2022 2:40 PM EDT): -He's on chronic opioid of oxycodone 15 mg q8 hours since 07/17/2017. -Nerve stimulator removed on 09/26/[address] Beasley ([facility]). It was placed 7-8 years ago in [place]. -MRI scheduled and completed, 03/01/21. ~MRI findings show: -Postoperative findings related to posterior decompression and instrumented fusion at the L5-S1 level. Nodefinite nerve root compression seen at this level. At L4-L5 there is moderate right and mild to moderate left neural foraminal stenosis with mild compression of the exiting right L4 and abutment of the exiting left L4 nerve roots. -Cauda equina nerve roots appear mildly disorganized and slightly redundant which is nonspecific but could be seen in the setting of arachnoiditis. -Continue judicious use of oxycodone -FORENSIC PSYCHOLOGIST agreement review is up to date Vitamin D deficiency 11/05/2022 Hypertriglyceridemia 12/11/2018 Nicotine dependence with current use 08/08/2018 Assessment & Plan (08/03/2024 3:28 PM EST): -Failed on nicotine replacement treatment: He tried patches, gums, and Nicotrol nasal spray -Adverse reaction to varenicline 1mg . Pt developed stomach pain when it was increased from 0.5 to 1 mg. He does not want to restart at lower dose -Pt reports he smokes around 5 cigarettes a day -Continue working on smoking cessation Assessment & Plan (08/25/2023 4:51 PM EST): -Failed on nicotine replacement treatment: He tried patches, gums, and Nicotrol nasal spray -Adverse reaction to varenicline 1mg . Pt developed stomach pain when it was increased from 0.5 to 1 mg. He does not want to restart at lower dose -Continue working on smoking cessation Assessment & Plan (02/27/2023 6:32 AM EDT): -Failed on nicotine replacement treatment: He tried patches, gums, and Nicotrol nasal spray -Adverse reaction to varenicline 1mg . Pt developed stomach pain when it was increased from 0.5 to 1 mg. He does not want to restart at lower dose -Continue working on smoking cessation Assessment & Plan (12/18/2022 2:38 PM EDT): -Failed on patches and Nicotrol nasal spray -Pt was prescribed nicotine gum in the past -Continue working on smoking cessation Asthma 11/20/2016 Assessment & Plan (08/25/2023 4:44 PM EST): -Last exacerbation in January 2022, Tx for acute bronchitis with azithromycin and prednisone, Flovent was added -Last PFT in Mar 2022. No obstructive or restrictive ventilatory defect. No bronchodilator response. Increased residual volume suggests air trapping. -Continue Flovent as maintenance for now -Continue albuterol prn -Consider ICS/LABA prn -Work on smoking cessation Assessment & Plan (12/18/2022 2:36 PM EDT): -Last exacerbation in January 2022, Tx for acute bronchitis with azithromycin and prednisone, Flovent was added -Continue Flovent as maintenance for now -Continue albuterol prn -Consider ICS/LABA prn -Evaluate with PFT -Work on smoking cessation Resolved Problems Problem Noted Date Diagnosed Date Resolved Date Left upper quadrant pain 12/24/2023 Assessment & Plan (12/24/2023 4:39 PM EDT): - following with [facility], last seen on 12/18/23 - plan to evaluate with EGD and abdominal US - continue omeprazole and sucralfate Colon cancer screening 12/19/202308/09 Acute upper respiratory infection 12/13/2022 02/26/2023 Encounters Date Type Department Care Team Description 08/19/2024 Orders Only GENERIC EXTERNAL DATA DEPARTMENT Provider, Generic External Data 08/03/2024 3:00 PM EST Office Visit [facility] [address] [place] [phone] Mely Vasquez MD Bilateral inguinal hernia without obstruction or gangrene, [...] increased risk for cardiovascular disease; Herpes simplex 08/03/2024 Travel 08/03/2024 Refill [facility] [address] [place] [id number] Mely Vasquez MD Lumbar disc disease 07/31/[address] [phone] [place] Carrasquillo [place] chart prep 06/29/2024 1:00 PM EST Telemedicine [facility] [address] [place] [address] Liset Cage RN Lumbar disc disease 06/29/2024 Refill [facility] [address] [place] [address] Liset Cage RN Lumbar disc disease 06/29/2024 Travel 06/09/2024 Refill [facility] [address] [place] [address] Liset Cage RN Lumbar disc disease 06/09/2024 Telephone [facility] [address] [place] [address] Mely Vasquez MD Med Refill from Last 3 Months Immunizations Name Administration Dates Next Due Hep B, adult 08/03/2024 Moderna Covid-19 Vaccine 12+ 06/12/2021,12/11/19 21,11/12/2020 Pneumococcal Conjugate PCV 20 03/19/2023 Pneumococcal Polysaccharide PPSV23 05/19/2018 Tdap 03/27/2022 Social History Tobacco Use Types Packs/Day Years [...] Orientation Straight 05/28/2022 10 :23 AM EDT Last Filed Vital Signs Vital Sign Reading [...] Mass Index 23.63 08/03/2024 3:07 PM EST Plan of Treatment Upcoming Encounters Date Type Department Care Team (Late st Contact Info) Description 08/31/2024 1:00 PM EST Clinical Support [facility] [address] [place], [place] [phone] 09/28/2024 1:30 PM EST Telemedicine [facility] [address], [place] [phone] Liset Cage, RN [address] [place], [place] [phone] Health Maintenance Due Date Last Done Comments CT Colonography 1975 Dental Oral Exam 1975 Dental Prophylaxis 1975 Dental X-Ray: Full Mouth 1975 FIT DNA/Cologuard 1975 FIT 1975 FOBT 1975 Sigmoidoscopy 1975 Family Planning (PISQ) 12/21/1990 Hepatitis C Screening 12/21/1993 Depression Screening 02/27/2024 02/26/2023, 02/26/2023 COVID-19 Vaccine (2023-2 5 season) 2024 06/12/2021, 12/10/2020, 11/12/2020 Influenza Vaccine (#1) 2024 Hepatitis B Vaccines (2 of 3 - 19+ 3-dose series) 08/31/2024 08/03/2024 Dental X-Ray: Bitewings 09/14/2024 09/13/2023 SDOH Screening 12/11/2024 12/12/2023 Alcohol/Substance Use Screening 08/03/2025 08/03/2024 Tobacco Screening 08/09/2025 08/09/2024 Zoster Vaccines (1 of 2) 12/21/2025 Colonoscopy 10/10/2027 10/09/2022 Colorectal Cancer Screening 10/10/2027 Lipid Panel 08/27/2028 08/27/2023, 04/27/2022 DTaP/Tdap/Td Vaccines (2 - T d or Tdap) 03/27/2032 03/27/2022 RSV Patients and Patients Aged 60 years or older (1 - 1-dose 75+ series) 12/21/2050 HIV Screening Completed 04/27/2022 Pneumococcal Vaccine: Pediatrics (0 to 5 Years) and At-Risk Patients (6 to 64 Years) Completed 03/19/2023, 05/19/2018 HIB Vaccines Aged Out No longer eligi ble based on patient's age to complete this topic HPV Vaccines Aged Out No longer eligi ble based on patient's age to complete this topic Hepatitis A Vaccines Aged Out No long er eligible based on patient's age to complete this topic IPV Vaccines Aged Out No longer eligi ble based on patient's age to complete this topic Meningococcal Vaccine Aged Out No franc tej eligible based on patient's age to complete this topic RSV under 20 months Aged Out No longe r eligible based on patient's age to complete this topic Rotavirus Vaccines Aged Out No longer eligible based on patient's age to complete this topic Procedures Procedure Name Priority Date/Time Associated Diagnosis Comments CBC WITH AUTO DIFFERENTIAL Routine 08/19/2024 3:16 PM EST BITEWING - SINGLE RADIOGRAPHIC IMAGE Routine 09/13/2023 1:00 PM EST LIPID PANEL WITH REFLEX TO DIRECT LDL Routine 08/27/2023 2:28 PM EST Elevated blood pressure reading HM COLONOSCOPY Routine 10/09/2022 ZZZ HISTORICAL HIV AB/AG Routine 04/27/2022 2:42 PM EDT from Last 3 Months or Most Recently Relevant to Health Maintenance Results * CBC auto differential (08/19/2024 3:16 PM EST) White Blood Count 10.5 4.8 - 10.8 X10*3/uL [facility] Red Blood Count 4.81 4.60 - 5.80 X10*6/uL [facility] Hemoglobin 14.7 14.0 - 18.0 g/dl [facility] Hematocrit 43.7 42.0 - 52.0 % [facility] Mean Corpuscular Volume 90.9 80.0 - 98.0 fL [facility] Mean Corpuscular Hemoglobin 30.6 27.0 - 33.0 pg [facility] Mean Corpuscular HGB Conc 33.6 31.0 - 36.0 g/dl [facility] Red Cell Distribution Width 13.3 11.0 - 16.0 % [facility] Platelet Count 301 160 - 400 X10*3/uL [facility] Mean Platelet Volume 11.0 9.4 - 12.4 fL [facility] Neutrophils Percent Auto 66.5 45 - 73 % [facility] Imm Gran Pct Auto 0.3 0.0 - 0.4 % [facility] Lymphocytes Percent Auto 27.2 20 - 40 % [facility] Monocytes Percent Auto 4.2 2 - 11 % [facility] Eosinophils Percent Auto 1.0 0 - 4 % [facility] Basophils Percent Auto 0.8 0 - 2 % [facility] NRBC Pct Auto 0.0 0.0 - 0.2 /100WBC [facility] Neutrophils Absolute Auto 7.0 2.0 - 8.3 x10*3/uL [facility] Imm Gran Abs Auto 0.03 0.00 - 0.03 X10*3/uL [facility] Lymphocytes Absolute Auto 2.9 1.2 - 4.9 X10*3/uL [facility] Monocytes Absolute Auto 0.4 0.1 - 1.2 X10*3/uL [facility] Eosinophils Absolute Auto 0.1 0.0 - 0.4 X10*3/uL [facility] Basophils Absolute Auto 0.1 0.0 - 0.2 X10*3/uL [facility] [facility] NRBC Abs Auto 0.000 0.0 - 0.012 X10*3/uL [facility] 08/19/2024 3:16 PM EST 08/19/2024 3:16 PM EST us Generic External Data Provider LAB BLOOD ORDERAB LES Final Result [facility] [address] [place] [address] [phone] * (ABNORMAL) Lipid Panel with Reflex to Direct LDL (08/27/2023 2:28 PM EST) Triglycerides 177(H) <150 mg/dL [facility] Comment:Desirable Triglyceri de: less than 150 mg/dLBorderline High Triglyceride 150-199 mg/dLHigh Triglyceride: 200-499 mg/dLVery High Triglyceride: greater than or equal to 5OO mg/dL Cholesterol 162 <200 mg/dL [facility] Comment:Desirable Cholestero l: less than 200 mg/dLBorderline High Cholesterol: 200-239 mg/dLHigh Cholesterol: greater than 239 mg/dL LDL Cholesterol Calculated 94 <100 mg/dL [facility] Comment:Desirable LDL: less than 100 mg/dLNear Optimal/Above Optimal LDL: 110- 129 mg/dLBorderline High LDL: 130-159 mg/dLHigh LDL: 160-189 mg/dLVery High LDL: greater than or equal to 190 mg/dL HDL Cholesterol 33(L) >40 mg/dL [facility] Comment:Desirable HDL: great er than 40 mg/dL Note: This HDL assay may give artificially low results in patients with liver disease. Blood 08/27/2023 2:28 PM EST 08/27/2023 4:05 PM EST Mely Vasquez MD LAB BLOOD ORDERABLES Final Resul t [facility] [address] [place] [phone] * Hm Colonoscopy (10/09/2022) Colonoscopy Normal Normal Historical Provider HEALTH MAINTENANCE Edited Result - Final * HIV AB/AG (04/27/2022 2:42 PM EDT) HIV AB/AG Nonreactive Nonreactive [facility] Comment: HIV-1 p24 Ag and/or HIV-1/HIV-2 Ab not detected. ?? A test result that is nonreactive does not exclude the possibility of exposure to or infection with HIV-1 and/or HIV-2. Nonreactive results in this assay for individuals with prior exposure to HIV-1 and/or HIV-2 may be due to antigen and antibody levels that are below the limit of detection of this assay. ?? The [employer] [facility] Sexual [facility]ault HIV Ag/Ab Combo assay result and supplemental assay results should be interpreted in conjunction with the patient's clinical presentation, history and other laboratory results. ??If the results are inconsistent with clinical evidence, additional testing is suggested to confirm the result. Hepatitis B Surface Antibody NONREACTIVE Nonreactive [facility] Comment:Nonreactive: < 8.00 mIU/mL 04/27/2022 2:42 PM EDT us Mely Vasquez MD HISTORICAL/NON ORDERABLE LABS Fi nal Result CON[facility] from Last 3 Months or Most Recently Relevant to Health Maintenance Insurance [facility] MEDICARE ADVANTAGE HMO DENTAL-[facility] MEDICAID STAND ADULT [facility] PPO Care Teams Homemaking Rehabilitation Consultant Relationship Specialty Start Date End Date Mely Vasquez MD [address] [place] [address] PCP - General Family Medicine 05/11/21
--- OUTSIDE RECORDS SUMMARY | 2024-08-19 17:20 | XMS_ITS | Encounter Summary ---
Author Organization [employer] Address 75 [facility] 7t [place] [address] Care Team Providers Care Edge Bander Operator Name Role Phone Mely Vasquez MD Primary Care Provider Reason for Visit * Reason Onset Date Comments Med Refill 01/28/2024 Encounter Details Date Type Department Care Team ([facility] st Contact Info) Description 01/28/[address] [facility] MEDICINE [address] [place], [place] [phone] Mely Vasquez MD [address] [place], [place] [phone] Med Refill Social History Tobacco Use Types [...] encounter Miscellaneous Notes * Telephone Encounter - Justin Manley - 01/28/2024 9:11 AM EDT TC from pt requesting medication refill. Medications needing refill : oxyCODONE (Roxicodone) 15 MG immediate release tablet To be sent to: [facility]/pharmacy #[id number] [place] [address] - [address] [place] [address] documented in this encounter Plan of Treatment Upcoming Encounters Date Type Department Care Team (Late st Contact Info) Description 08/31/2024 1:00 PM EST Clinical Support [facility] MEDICINE [address] [place] [address] 09/28/2024 1:[address] [facility] MED & PEDS [address] [place] [address] Liset Cage RN [address] [place] [address] documented as of this encounter Visit Diagnoses Not on filedocumented in this encounter Additional Health Concerns Assessment Noted Time PHQ-9 Depression Total Score: 0 02/27/20 23 3:09 PM EDT documented as of this encounter Care Teams Edge Bander Operator Relationship Specialty Start Date End Date Mely Vasquez MD [address] [place] [address] PCP - General Family Medicine 05/11/21 documented as of this encounter
--- OUTSIDE RECORDS SUMMARY | 2024-08-19 17:20 | XMS_ITS | Encounter Summary ---
Author Organization [employer] Address 75 [facility] 7t [place] [address] Care Team Providers Care Airplane Electrical Repairer Name Role Phone Mely Vasquez MD Primary Care Provider [phone] Reason for Visit * Reason Onset Date Comments Med Refill 01/02/2024 Encounter Details Date Type Department Care Team ([facility] st Contact Info) Description 01/02/2024 Telephone [facility] MEDICINE [address] [place], [place] [phone] Mely Vasquez MD [address] [place], [place] [phone] Med Refill Social History Tobacco Use Types [...] * Telephone Encounter - Justin Manley - 01/02/2024 2:08 PM EDT TC from pt requesting medication refill. Medications needing refill : oxyCODONE (Roxicodone) 15 MG immediate release tablet To be sent to: [facility]/PHARMACY #[id number] documented in this encounter Plan of Treatment Upcoming Encounters Date Type Department Care Team (Late st Contact Info) Description 08/31/2024 1:00 PM EST Clinical Support [facility] MEDICINE [address] [place] [address] 09/28/2024 1:30 PM EST Telemedicine [facility] MED & PEDS [address] [place] [address] Liset Cage RN [address] [place] [address] documented as of this encounter Visit Diagnoses Not on filedocumented in this encounter Additional Health Concerns Assessment Noted Time PHQ-9 Depression Total Score: 0 02/27/20 23 3:09 PM EDT documented as of this encounter Care Teams Airplane Electrical Repairer Relationship Specialty Start Date End Date Mely Vasquez MD [address] [place] [address] PCP - General Family Medicine 05/11/21 documented as of this encounter
--- OUTSIDE RECORDS SUMMARY | 2024-08-19 17:20 | XMS_ITS | Encounter Summary ---
Author Organization [employer] Address 75 [facility] 7t [place] [address] Care Team Providers Care Dental Services Director Name Role Phone Mely Vasquez MD Primary Care Provider [phone] Reason for Visit * Reason Onset Date Comments Med Refill 01/01/2024 Encounter Details Date Type Department Care Team ([facility] st Contact Info) Description 01/01/2024 Telephone [facility] MEDICINE [address] [place], [place] [phone] Mely Vasquez MD [address] [place], [place] [phone] Med Refill Social History Tobacco Use Types [...] * Telephone Encounter - Belkis Sheffield - 01/01/2024 2:42 PM EDT TC from pt requesting medication refill. Medications needing refill : oxyCODONE (Roxicodone) 15 MG immediate release tablet To be sent to: [facility]/pharmacy #[id number] [place], [place] - [address] [place] [address] documented in this encounter Plan of Treatment Upcoming Encounters Date Type Department Care Team (Late st Contact Info) Description 08/31/2024 1:00 PM EST Clinical Support [facility] MEDICINE [address] [place] [address] 09/28/2024 1:30 PM EST Telemedicine [facility] CHC MED & PEDS [address] [place] [address] Liset Cage RN [address] [place] [address] documented as of this encounter Visit Diagnoses Not on filedocumented in this encounter Additional Health Concerns Assessment Noted Time PHQ-9 Depression Total Score: 0 02/27/20 23 3:09 PM EDT documented as of this encounter Care Teams Dental Services Director Relationship Specialty Start Date End Date Mely Vasquez MD [address] [place] [address] PCP - General Family Medicine 05/11/21 documented as of this encounter
--- OUTSIDE RECORDS SUMMARY | 2024-08-19 17:20 | XMS_ITS | Encounter Summary ---
Author Organization [employer] Address 75 [facility] 7t [place] [address] Care Team Providers Care Motorcycle Police Officer Name Role Phone Mely Vasquez MD Primary Care Provider [phone] Reason for Visit * Reason Onset Date Comments Med Refill 04/16/2024 Encounter Details Date Type Department Care Team ([facility] st Contact Info) Description 04/16/2024 Telephone [facility] MEDICINE [address] [place], [place] [phone] Mely Vasquez MD [address] [place], [place] [phone] Med Refill Social History Tobacco Use Types [...] encounter Miscellaneous Notes * Telephone Encounter - David Alan - 04/16/2024 9:43 AM EDT TC from pt requesting medication refill. Medications needing refill : oxyCODONE (Roxicodone) 15 MG immediate release tablet [facility] sent to: [facility] documented in this encounter Plan of Treatment Upcoming Encounters Date Type Department Care Team (Late st Contact Info) Description 08/31/2024 1:00 PM EST Clinical Support [facility] MEDICINE [address] [place] [address] 09/28/2024 1:30 PM EST Telemedicine [facility] MED & PEDS [address] [place] [address] Liset Cage, RN [address] [place] [address] documented as of this encounter Visit Diagnoses Not on filedocumented in this encounter Additional Health Concerns Assessment Noted Time PHQ-9 Depression Total Score: 0 02/27/20 23 3:09 PM EDT documented as of this encounter Care Teams Motorcycle Police Officer Relationship Specialty Start Date End Date Mely Vasquez MD [address] [place] [address] PCP - General Family Medicine 05/11/21 documented as of this encounter
--- OUTSIDE RECORDS SUMMARY | 2024-08-19 17:20 | XMS_ITS | Encounter Summary ---
Author Organization [employer] Address [address] [facility] 7t [place] [address] Care Team Providers Care Systems Technologist Name Role Phone Mely Vasquez MD Primary Care Provider [phone] Reason for Visit * Reason Onset Date Comments Med Refill 06/26/2023 Encounter Details Date Type Department Care Team ([facility] st Contact Info) Description 06/26/2023 Refill [facility] MEDICINE [address] [place], [place] [phone] Mely Vasquez MD [address] [place], [place] [phone] Lumbar disc disease Social History Tobacco Use Types Packs/Day Years [...] * Telephone Encounter - Belkis Sheffield - 06/26/2023 9:04 AM EST Tc from pt requesting med refill on; oxyCODONE (Roxicodone) 15 MG immediate release tablet [facility] [place] [address] - [address] [place] [address] documented in this encounter Plan of Treatment Upcoming Encounters Date Type Department Care Team (Late st Contact Info) Description 08/31/2024 1:00 PM EST Clinical Support [facility] MEDICINE [address] [place] [address] 09/28/2024 1:30 PM EST Telemedicine [facility] CHC MED & PEDS [address] [place] [address] Liset Cage, RN 505 [place] [address] documented as of this encounter Visit Diagnoses Diagnosis Lumbar disc disease Other and unspecified disc disorder of lumbar region documented in this encounter Additional Health Concerns Assessment Noted Time PHQ-9 Depression Total Score: 0 02/27/20 23 3:09 PM EDT documented as of this encounter Care Teams Systems Technologist Relationship Specialty Start Date End Date Mely Vasquez MD [address] [place] [address] PCP - General Family Medicine 05/11/21 documented as of this encounter
--- OUTSIDE RECORDS SUMMARY | 2024-08-19 17:20 | XMS_ITS | Encounter Summary ---
Author Organization [employer] Address 75 [facility] 7[address] [place] [address] Care Team Providers Care Inspector Automatic Typewriter Name Role Phone Mely Vasquez MD Primary Care Provider [phone] Reason for Visit * Reason Onset Date Comments Med Refill 04/22/2023 Encounter Details Date Type Department Care Team ([facility] st Contact Info) Description 04/22/2023 Telephone [facility] MEDICINE [address] [place], [place] [phone] Mely Vasquez MD [address] [place], [place] [phone] Med Refill Social History Tobacco Use Types [...] Recorded Patient Health Questionnaire-9 Score 0 02/26/2023 Depression Answer Date Recorded Patient Health Questionnaire-2 Score 0 02/26/2023 Sex and Gender Information Value Date Recorded Sex Assigned at Male 05/28/2022 10:23 AM EDT Legal Sex Male 10:23 AM EDT Gender Identity Male 05/28/2022 10:23 AM EDT Sexual Orientation Straight 05/28/2022 10 :23 AM EDT documented as of this encounter Miscellaneous Notes * Telephone Encounter - Kaitlynn Shearernez - 04/22/2023 8:32 AM EDT Tc from patient requesting a med refill for medication oxycodone [address] Vasquez documented in this encounter Plan of Treatment Upcoming Encounters Date Type Department Care Team (Late st Contact Info) Description 08/31/2024 1:00 PM EST Clinical Support [facility] MEDICINE [address] [place] [address] 09/28/2024 1:30 PM EST Telemedicine [facility] CHC MED & PEDS [address] [place] [address] Liset Cage, RN [address] [place] [address] documented as of this encounter Visit Diagnoses Not on filedocumented in this encounter Additional Health Concerns Assessment Noted Time PHQ-9 Depression Total Score: 0 02/27/20 23 3:09 PM EDT documented as of this encounter Care Teams Inspector Automatic Typewriter Relationship Specialty Start Date End Date Mely Vasquez MD [address] [place] [address] PCP - General Family Medicine 05/11/21 documented as of this encounter
--- OUTSIDE RECORDS SUMMARY | 2024-08-19 17:20 | XMS_ITS | Encounter Summary ---
Author Organization [employer] Address [address] [facility] [address] 7t [place] [address] Care Team Providers Care Distribution Designer Name Role Phone Mely Vasquez MD Primary Care Provider [phone] Reason for Visit * Reason Onset Date Comments chart prep 07/31/2024 Encounter Details Date Type Department Care Team ([facility] st Contact Info) Description 07/31/2024 Telephone [facility] MEDICINE [address] [place], [place] [phone] China Carrasquillo [place] chart prep Social History Tobacco Use Types Packs/Day Years [...] encounter Miscellaneous Notes * Telephone Encounter - China Carrasquillo [place] - 07/31/2024 9:08 AM EST .Chart Prep Labs: not applicable Images: not applicable Vaccines due: Covid Due, Hep B Due, and Flu Due Referrals: Completed Urology appointment 08/10/24 Gastro appointment 08/19/24 Gastro appointment 12/04/24 Screenings: Not Applicable Overdue care gaps: Sbirt, PHQ-9, and Jason-7 documented in this encounter Plan of Treatment Upcoming Encounters Date Type Department Care Team (Late st Contact Info) Description 08/31/2024 1:00 PM EST Clinical Support [facility] MEDICINE [address] [place] [address] 09/28/2024 1:30 PM EST Telemedicine [facility] MED & PEDS [address] [place] [address] Liset Cage, APARNA 505 [place] [address] documented as of this encounter Visit Diagnoses Not on filedocumented in this encounter Additional Health Concerns Assessment Noted Time PHQ-9 Depression Total Score: 0 02/27/20 23 3:09 PM EDT documented as of this encounter Care Teams Distribution Designer Relationship Specialty Start Date End Date Mely Vasquez MD [address] [place] [address] PCP - General Family Medicine 05/11/21 documented as of this encounter
--- OUTSIDE RECORDS SUMMARY | 2024-08-19 17:20 | XMS_ITS | Encounter Summary ---
Author Organization [employer] Address 75 [facility] 7t [place] [address] Care Team Providers Care Production Maintenance Technician Name Role Phone Mely Vasquez MD Primary Care Provider [phone] Reason for Visit * Reason Onset Date Comments Durable Medical Equipment 03/23/2024 Encounter Details Date Type Department Care Team ([facility] st Contact Info) Description 03/23/2024 Telephone [facility] MEDICINE [address] [place], [place] [phone] Mely Vasquez MD [address] [place], [place] [phone] Durable Medical Equipment Social History Tobacco Use Types Packs/Day Years [...] encounter Miscellaneous Notes * Telephone Encounter - Peter Vu - 03/23/2024 9:50 AM EDT Tc from pt requesting a Rolator Walker with seat due to pt having difficulty walking. documented in this encounter Plan of Treatment Upcoming Encounters Date Type Department Care Team (Late st Contact Info) Description 08/31/2024 1:00 PM EST Clinical Support [facility] MEDICINE [address] [place] [address] 09/28/2024 1:30 PM EST Telemedicine [facility] CHC MED & PEDS [address] [place] [address] Liset Cage, RN 505 [place] [address] documented as of this encounter Visit Diagnoses Not on filedocumented in this encounter Additional Health Concerns Assessment Noted Time PHQ-9 Depression Total Score: 0 02/27/20 23 3:09 PM EDT documented as of this encounter Care Teams Production Maintenance Technician Relationship Specialty Start Date End Date Mely Vasquez MD [address] [place] [address] PCP - General Family Medicine 05/11/21 documented as of this encounter
--- OUTSIDE RECORDS SUMMARY | 2024-08-19 17:20 | XMS_ITS | Clinical Summary ---
Author Organization [employer] [facility] ity Address [address] [place] [address] Care Team Providers Care Drafter Detail Name Role Phone Unavailable Primary Care Provider Unavailabl e Social History Tobacco Use Types Packs/Day Years Used Date Smoking Tobacco: Never Assessed Sex and Gender Information Value Date Recorded Sex Assigned at Not on file Gender Identity Not on file Sexual Orientation Not on file Plan of Treatment Health Maintenance Due Date Last Done Comments DTaP,Tdap,and Td Vaccines (1 - Tdap) 12/21/1994 Hepatitis B Vaccines (1 of 3 - 19+ 3-dose series) 12/21/1994 COVID-19 Vaccine (2023-2 5 season) 2024 Influenza Vaccine (#1) 2024 HIB Vaccines Aged Out No longer eligi [...] on patient's age to complete this topic MMR Vaccines Aged Out No longer eligi ble based on patient's age to complete this topic Meningococcal ACWY Vaccine Aged Out N o longer eligible based on patient's age to complete this topic Pneumococcal Vaccine: Pediat rics (0 to 5 Years) and At-Risk Patients (6 to 64 Years) Aged Out No longer eligible b ased on patient's age to complete this topic RSV Immunization Patients Un mary 20 months Aged Out No longer eligible b ased on patient's age to complete this topic Varicella Vaccines Aged Out No longer eligible based on patient's age to complete this topic
--- OUTSIDE RECORDS SUMMARY | 2024-08-19 17:20 | XMS_ITS | Encounter Summary ---
Author Organization [employer] Address 75 [facility] 7t [place] [address] Care Team Providers Care Scheduler Conveyor Name Role Phone Mely Vaqsuez MD Primary Care Provider [phone] Reason for Visit * Reason Onset Date Comments Med Refill 06/09/2024 Encounter Details Date Type Department Care Team ([facility] st Contact Info) Description 06/09/2024 Telephone [facility] MEDICINE [address] [place], [place] [phone] Mely Vasquez MD [address] [place], [place] [phone] Med Refill Social History Tobacco Use Types [...] encounter Miscellaneous Notes * Telephone Encounter - Ben Dowell - 06/09/2024 3:50 PM EST TC from pt requesting medication refill. Medications needing refill : oxyCODONE (Roxicodone) 15 MG immediate release tablet To be sent to: [facility]/pharmacy #[id number] [place] [address] documented in this encounter Plan of Treatment Upcoming Encounters Date Type Department Care Team (Late st Contact Info) Description 08/31/2024 1:00 PM EST Clinical Support [facility] MEDICINE [address] [place] [address] 09/28/2024 1:30 PM EST Telemedicine [facility] CHC MED & PEDS [address] [place] [address] Liset Cage RN [address] [place] [address] documented as of this encounter Visit Diagnoses Not on filedocumented in this encounter Additional Health Concerns Assessment Noted Time PHQ-9 Depression Total Score: 0 02/27/20 23 3:09 PM EDT documented as of this encounter Care Teams Scheduler Conveyor Relationship Specialty Start Date End Date Mely Vasquez MD [address] [place] [address] PCP - General Family Medicine 05/11/21 documented as of this encounter
--- OUTSIDE RECORDS SUMMARY | 2024-08-19 17:20 | XMS_ITS | Encounter Summary ---
Author Organization [email or web address] Address [address] [facility] [address] 7[address] [place] [address] Care Team Providers Care Ice Hockey Coach Name Role Phone Mely Vasquez MD Primary Care Provider [phone] Encounter Details Date Type Department Care Team (Latest Contact Info) Description 08/03/2024 Travel Social History Tobacco Use Types Packs/Day Years [...] AM EDT documented as of this encounter Plan of Treatment Upcoming Encounters Date Type Department Care Team (Late st Contact Info) Description 08/31/2024 1:00 PM EST Clinical Support [facility] MEDICINE [address] [place] [address] 09/28/2024 1:30 PM EST Telemedicine [facility]EDS [address] [place] [address] Liset Cage, RN 505 [place] [address] documented as of this encounter Visit Diagnoses Not on filedocumented in this encounter Additional Health Concerns Assessment Noted Time PHQ-9 Depression Total Score: 0 02/27/20 23 3:09 PM EDT documented as of this encounter Care Teams Ice Hockey Coach Relationship Specialty Start Date End Date Mely Vasquez MD 230 [place] [address] PCP - General Family Medicine 05/11/21 documented as of this encounter
--- OUTSIDE RECORDS SUMMARY | 2024-08-19 17:20 | XMS_ITS | Encounter Summary ---
Author Organization [employer] Address [address] [facility] [address] 7t [place] [address] Care Team Providers Care Citizen Participation Specialist Name Role Phone Mely Vasquez MD Primary Care Provider [phone] Encounter Details Date Type Department Care Team ([facility] st Contact Info) Description 08/19/2024 Orders Only GENERIC EXTERNAL DATA DEPARTMENT Provider, Generic External Data Social History Tobacco Use Types Packs/Day Years [...] Description 08/31/2024 1:00 PM EST Clinical Support [facility] MEDICINE [address] [place] [address] 09/28/2024 1:30 PM EST Telemedicine [facility] MED & PEDS [address] [place], [place] [phone] Liset Cage, RN [address] [place] [address] documented as of this encounter Procedures Procedure Name Priority Date/Time Associated Diagnosis Comments CBC WITH AUTO DIFFERENTIAL Routine 08/19/2024 3:16 PM EST documented in this encounter Results * CBC auto differential (08/19/2024 3:16 PM EST) White Blood Count 10.5 4.8 - 10.8 X10*3/uL [facility] Red Blood Count 4.81 4.60 - 5.80 X10*6/uL [facility] Hemoglobin 14.7 14.0 - 18.0 g/dl [facility] Hematocrit 43.7 42.0 - 52.0 % [facility] Mean Corpuscular Volume 90.9 80.0 - 98.0 fL [facility] Mean Corpuscular Hemoglobin 30.6 27.0 - 33.0 pg [facility] Mean Corpuscular HGB Conc 33.6 31.0 - 36.0 g/dl [facility] Red Cell Distribution Width 13.3 11.0 - 16.0 % [facility] Platelet Count 301 160 - 400 X10*3/uL [facility] Mean Platelet Volume 11.0 9.4 - 12.4 fL [facility] Neutrophils Percent Auto 66.5 45 - 73 % [facility] Imm Gran Pct Auto 0.3 0.0 - 0.4 % [facility] Lymphocytes Percent Auto 27.2 20 - 40 % [facility] Monocytes Percent Auto 4.2 2 - 11 % [facility] Eosinophils Percent Auto 1.0 0 - 4 % [facility] Basophils Percent Auto 0.8 0 - 2 % [facility] NRBC Pct Auto 0.0 0.0 - 0.2 /100WBC [facility] Neutrophils Absolute Auto 7.0 2.0 - 8.3 x10*3/uL [facility] Imm Gran Abs Auto 0.03 0.00 - 0.03 X10*3/uL [facility] Lymphocytes Absolute Auto 2.9 1.2 - 4.9 X10*3/uL [facility] Monocytes Absolute Auto 0.4 0.1 - 1.2 X10*3/uL [facility] Eosinophils Absolute Auto 0.1 0.0 - 0.4 X10*3/uL [facility] Basophils Absolute Auto 0.1 0.0 - 0.2 X10*3/uL [facility] NRBC Abs Auto 0.000 0.0 - 0.012 X10*3/uL [facility] 08/19/2024 3:16 PM EST 08/19/2024 3:16 PM EST us Generic External Data Provider LAB BLOOD ORDERAB LES Final Result Performing Organization Address City/State/[facility] Co de Phone Number [facility] [address] [place] [phone] documented in this encounter Visit Diagnoses Not on filedocumented in this encounter Additional Health Concerns Assessment Noted Time PHQ-9 Depression Total Score: 0 02/27/20 23 3:09 PM EDT documented as of this encounter Care Teams Citizen Participation Specialist Relationship Specialty Start Date End Date Mely Vasquez MD [address] [place] [phone] PCP - General Family Medicine 05/11/21 documented as of this encounter
--- OUTSIDE RECORDS SUMMARY | 2024-08-19 17:20 | XMS_ITS | Encounter Summary ---
Author Organization [employer] Address [address] [facility] [address] 7[address] [place] [address] Care Team Providers Care Surgical Instrument Technician Name Role Phone Mely Vasquez MD Primary Care Provider [phone] Reason for Visit * Reason Onset Date Comments FYI 05/15/2023 Encounter Details Date Type Department Care Team ([facility] st Contact Info) Description 05/15/2023 Telephone [facility] MEDICINE [address] [place], [place] [phone] Mely Vasquez MD [address] [place], [place] [phone] FYI Social History Tobacco Use Types Packs/Day Years [...] * Telephone Encounter - Belkis Sheffield - 05/15/2023 9:03 AM EDT Tc from pt to inform PCP pt got an appt for 05/24/2023 at [facility] [place] [facility]. documented in this encounter Plan of Treatment Upcoming Encounters Date Type Department Care Team (Late st Contact Info) Description 08/31/2024 1:00 PM EST Clinical Support [facility] MEDICINE [address] [place] [address] 09/28/2024 1:30 PM EST Telemedicine [facility] MED & PEDS [address] [place] [address] Liset Cage, RN [address] [place] [address] documented as of this encounter Visit Diagnoses Not on filedocumented in this encounter Additional Health Concerns Assessment Noted Time PHQ-9 Depression Total Score: 0 02/27/20 23 3:09 PM EDT documented as of this encounter Care Teams Surgical Instrument Technician Relationship Specialty Start Date End Date Mely Vasquez MD [address] [place] [address] PCP - General Family Medicine 05/11/21 documented as of this encounter
--- OUTSIDE RECORDS SUMMARY | 2024-08-19 17:20 | XMS_ITS | Encounter Summary ---
Author Organization [employer] Address 75 [facility] 7t [place] [address] Care Team Providers Care Accounting Professor Name Role Phone Mely Vasquez MD Primary Care Provider [phone] Reason for Visit * Reason Onset Date Comments Med Refill 05/14/2024 Encounter Details Date Type Department Care Team ([facility] st Contact Info) Description 05/14/2024 Telephone [facility] MEDICINE [address] [place], [place] [phone] Mely Vasquez MD 230 [place], [place] [phone] Med Refill Social History Tobacco Use Types [...] encounter Miscellaneous Notes * Telephone Encounter - Diane Morris - 05/14/2024 8:57 AM EDT Tc from pt requesting a refill for oxyCODONE (Roxicodone) 15 MG immediate release tablet documented in this encounter Plan of Treatment Upcoming Encounters Date Type Department Care Team (Late st Contact Info) Description 08/31/2024 1:00 PM EST Clinical Support [facility] MEDICINE [address] [place] [address] 09/28/2024 1:30 PM EST Telemedicine [facility] MED & PEDS [address] [place] [address] Liset Cage, RN [address] [place] [address] documented as of this encounter Visit Diagnoses Not on filedocumented in this encounter Additional Health Concerns Assessment Noted Time PHQ-9 Depression Total Score: 0 02/27/20 23 3:09 PM EDT documented as of this encounter Care Teams Accounting Professor Relationship Specialty Start Date End Date Mely Vasquez MD [address] [place] [address] PCP - General Family Medicine 05/11/21 documented as of this encounter
--- OUTSIDE RECORDS SUMMARY | 2024-08-19 17:20 | XMS_ITS | Encounter Summary ---
Author Organization [employer] Address 75 [facility] 7t [place] [address] Care Team Providers Care Lining Feller Name Role Phone Mely Vasquez MD Primary Care Provider [phone] Reason for Referral * Consultation (Routine) - Closed Specialty Diagnoses / Procedures Referred By Micheal mueller Referred To Contact Urology Diagnoses Benign prostatic hyperplasia, unspecified whether lower urinary tract symptoms present Mely Vasquez MD [address] [place] [address] Phone: tel: fax: [facility] Referral ID Status Reason Start Date Expiration Date V isits Requested Visits Authorized [id number] Closed Specialty Services Required 11/22/2023 11/21/2024 1 1 Encounter Details Date Type Department Care Team ([facility] st Contact Info) Description 11/22/2023 Orders Only [facility] MEDICINE [address] [place] [address] [phone] Mely Vasquez MD [address] [place] [address] [phone] Benign prostatic hyperplasia, unspecified whether lower urinary tract symptoms present (Primary Dx) Social History Tobacco Use Types Packs/Day Years [...] Description 08/31/2024 1:00 PM EST Clinical Support [facility] MEDICINE [address] [place] [address] 09/28/2024 1:30 PM EST Telemedicine [facility] MED [facility] PEDS [address] [place] [address] Liset Cage, RN [address] [place] [address] Scheduled Referrals Name Type Priority Associated Diagnoses Orde r Schedule Referral to Urology Outpatient Referral Routine Benign prostatic hyperplasia, unspecified whether lower urinary tract symptoms present Expected: 11/22/2023 (Approximate), Expires: 11/21/2024 documented as of this encounter Procedures Procedure Name Priority Date/Time Associated Diagnosis Comments TESTOSTERONE, TOTAL, MALES (ADULT), [place] Routine 12/02/2023 1:02 PM EDT Benign prostatic hyperplasia, unspecified whether lower urinary tract symptoms present PSA, TOTAL Routine 12/02/2023 1:02 PM EDT Benign prostatic hyperplasia, unspecified whether lower urinary tract symptoms present documented in this encounter Results * Testosterone, Total, males (Adult), IA (12/02/2023 1:02 PM EDT) Testosterone, Total 522 250 - 1100 ng/dL [facility] Comment:For additional infor matpatsy, please refer tohttp://education.Comecer.Arithmatica/faq/[email or web address](This link is being provided for informational/educational purposes only.)This test was developed and its analytical performancecharacteristics have been determined by [employer] [place], [place]. It hasnot been cleared or approved by the U.S. Food and DrugAdministration. This assay has been validated pursuantto the CLIA regulations and is used for clinicalpurposes.THIS TEST WAS PERFORMED AT:[employer]/[id number] [place] [address]GEHHXYUMARYSOL PANTOJA MD,PHD Blood Venous blood specimen / Unknown 12/02/2023 1:02 PM EDT 12/02/2023 4:10 PM EDT us Mely Vasquez MD LAB BLOOD ORDERABLES Final Resul t [facility] [address] [place] [phone] * PSA,Total (12/02/2023 1:02 PM EDT) Prostate Specific Antigen 0.50 <0.05 - 4.0 ng/mL [facility] Comment:PSA methodology: Jennifer Dupree i ChemiluminescentMicroparticle Immunoassay (CMIA) Blood Venous blood specimen / Unknown 12/02/2023 1:02 PM EDT 12/02/2023 4:10 PM EDT us Mely Vasquez MD LAB BLOOD ORDERABLES Final Resul t [facility] [address] [place] [address] [phone] documented in this encounter Visit Diagnoses Diagnosis Benign prostatic hyperplasia, unspecified whether lower urinary tract symptoms present- Primary documented in this encounter Additional Health Concerns Assessment Noted Time PHQ-9 Depression Total Score: 0 02/27/20 23 3:09 PM EDT documented as of this encounter Care Teams Lining Feller Relationship Specialty Start Date End Date Mely Vasquez MD [address] [place] [phone] PCP - General Family Medicine 05/11/21 documented as of this encounter
--- OUTSIDE RECORDS SUMMARY | 2024-08-19 17:20 | XMS_ITS | Encounter Summary ---
Author Organization [employer] Address [address] [facility] 7t [place] [address] Care Team Providers Care Quality Systems Manager Name Role Phone Mely Vasquez MD Primary Care Provider [phone] Reason for Visit * Reason Onset Date Comments Med Refill 05/21/2023 Encounter Details Date Type Department Care Team ([facility] st Contact Info) Description 05/21/2023 Telephone [facility] MEDICINE [address] [place], [place] [phone] Mely Vasquez MD [address] [place], [place] [phone] Med Refill Social History Tobacco Use Types [...] * Telephone Encounter - Belkis Sheffield - 05/21/2023 3:36 PM EDT Tc from pt requesting med refill on oxyCODONE (Roxicodone) 15 MG immediate release tablet, pt stated went to [facility] and the store has 40, pt is requesting order of 44 to be send [facility]. documented in this encounter Plan of Treatment Upcoming Encounters Date Type Department Care Team (Late st Contact Info) Description 08/31/2024 1:00 PM EST Clinical Support [facility] MEDICINE [address] [place] [address] 09/28/2024 1:30 PM EST Telemedicine [facility] MED & PEDS [address] [place] [address] Liset Cage, APARNA [address] [place] [address] documented as of this encounter Visit Diagnoses Not on filedocumented in this encounter Additional Health Concerns Assessment Noted Time PHQ-9 Depression Total Score: 0 02/27/20 23 3:09 PM EDT documented as of this encounter Care Teams Quality Systems Manager Relationship Specialty Start Date End Date Mely Vasuqez MD [address] [place] [address] PCP - General Family Medicine 05/11/21 documented as of this encounter
--- OUTSIDE RECORDS SUMMARY | 2024-08-19 17:20 | XMS_ITS | Encounter Summary ---
Author Organization [employer] Address [address] [facility] [address] [facility] [address] 7t [place] [address] Care Team Providers Care Billiard Parlor Manager Name Role Phone Mely Vasquez MD Primary Care Provider [phone] Reason for Visit * Reason Comments Med Refill Encounter Details Date Type Department Care Team ([facility] st Contact Info) Description 04/26/2024 Refill [facility] MEDICINE [address] [place], [place] [phone] Mely Vasquez MD [address] [place], [place] [phone] Chronic rhinosinusitis; Chronic sinusitis, unspecified location Social History Tobacco Use Types Packs/Day Years [...] [facility] [address] [place] [address] 09/28/2024 1:30 PM EST Telemedicine [facility] MED [facility] PEDS [address] [place] [address] Liset Cage, APARNA [address] [place] [address] documented as of this encounter Visit Diagnoses Diagnosis Chronic rhinosinusitis Unspecified sinusitis (chronic) Chronic sinusitis, unspecified location documented in this encounter Additional Health Concerns Assessment Noted Time PHQ-9 Depression Total Score: 0 02/27/20 23 3:09 PM EDT documented as of this encounter Care Teams Billiard Parlor Manager Relationship Specialty Start Date End Date Mely Vasquez MD [address] [place] [phone] PCP - General Family Medicine 05/11/21 documented as of this encounter
--- OUTSIDE RECORDS SUMMARY | 2024-08-19 17:20 | XMS_ITS | Encounter Summary ---
Author Organization [employer] Address 75 [facility] 7t [place] [address] Care Team Providers Care Internet Retailer Name Role Phone Mely Vasquez MD Primary Care Provider [phone] Reason for Visit * Reason Onset Date Comments Med Refill 08/03/2024 Encounter Details Date Type Department Care Team ([facility] st Contact Info) Description 08/03/2024 Refill [facility] MEDICINE [address] [place], [place] [phone] Mely Vasquez MD [address] [place], [place] [phone] Lumbar disc disease Social History Tobacco Use [...] encounter Miscellaneous Notes * Telephone Encounter - Emanuel Doran - 08/03/2024 8:22 AM EST TC from pt requesting medication refill. Medications needing refill : oxyCODONE (Roxicodone) 15 MG immediate release tablet To be sent to: [facility]/pharmacy #[id number] documented in this encounter Plan of Treatment Upcoming Encounters Date Type Department Care Team (Late st Contact Info) Description 08/31/2024 1:00 PM EST Clinical Support [facility] MEDICINE [address] [place] [address] 09/28/2024 1:30 PM EST Telemedicine [facility] MED [facility] PEDS [address] [place] [address] Liset Cage, RN [address] [place] [address] documented as of this encounter Visit Diagnoses Diagnosis Lumbar disc disease Other and unspecified disc disorder of lumbar region documented in this encounter Additional Health Concerns Assessment Noted Time PHQ-9 Depression Total Score: 0 02/27/20 23 3:09 PM EDT documented as of this encounter Care Teams Internet Retailer Relationship Specialty Start Date End Date Mely Vasquez MD [address] [place] [address] PCP - General Family Medicine 05/11/21 documented as of this encounter
--- OUTSIDE RECORDS SUMMARY | 2024-08-19 17:20 | XMS_ITS | Encounter Summary ---
Author Organization [employer] Address 75 [facility] 7t [place] [address] Care Team Providers Care Interface Developer Name Role Phone Mely Vasquez MD Primary Care Provider [phone] Reason for Visit * Reason Onset Date Comments Med Refill 02/24/2024 Encounter Details Date Type Department Care Team ([facility] st Contact Info) Description 02/24/2024 Telephone [facility] MEDICINE [address] [place], [place] [phone] Mely Vasquez MD [address] [place], [place] [phone] Med Refill Social History Tobacco Use Types [...] * Telephone Encounter - Justin Manley - 02/25/2024 9:47 AM EDT Tc from patient requesting status in regards to the message below * Telephone Encounter - Belkis Sheffield - 02/24/2024 8:27 AM EDT TC from pt requesting medication refill. Medications needing refill : oxyCODONE (Roxicodone) 15 MG immediate release tablet To be sent to: [facility]/pharmacy #[id number] [place] [address] documented in this encounter Plan of Treatment Upcoming Encounters Date Type Department Care Team (Late st Contact Info) Description 08/31/2024 1:00 PM EST Clinical Support [facility] MEDICINE [address] [place] [address] 09/28/2024 1:30 PM EST Telemedicine [facility] MED & PEDS [address] [place] [address] Liset Cage, APARNA [address] [place] [address] documented as of this encounter Visit Diagnoses Not on filedocumented in this encounter Additional Health Concerns Assessment Noted Time PHQ-9 Depression Total Score: 0 02/27/20 23 3:09 PM EDT documented as of this encounter Care Teams Interface Developer Relationship Specialty Start Date End Date Mely Vasquez MD [address] [place] [address] PCP - General Family Medicine 05/11/21 documented as of this encounter
--- OUTSIDE RECORDS SUMMARY | 2024-08-19 17:20 | XMS_ITS | Encounter Summary ---
Author Organization [employer] Address 75 [facility] [address] [place] [address] Care Team Providers Care Journeyman Pipe Welder Name Role Phone Mely Vasquez MD Primary Care Provider [phone] Reason for Visit * Reason Onset Date Comments Appointment Request 01/31/2023 Encounter Details Date Type Department Care Team (Late Contact Info) Description 01/31/2023 Telephone [facility] MEDICINE [address] [place] [address] Mely Vasquez MD [address] [place] [address] Appointment Request Social History Tobacco Use Types Packs/Day Years Used Date Smoking Tobacco: Every Day Cigarettes Passive Smoke Exposure: Current Smokeless Tobacco: Never Sex and Gender Information Value Date Recorded Sex Assigned at Male 05/28/2022 10:23 AM EDT Legal Sex Male 10:23 AM EDT Gender Identity Male 05/28/2022 10:23 AM EDT Sexual Orientation Straight 05/28/2022 10 :23 AM EDT documented as of this encounter Miscellaneous Notes * Telephone Encounter - Peter Vu - 01/31/2023 1:07 PM EDT Tc from pt requesting to r/s appt from LOAN OFFICER on 02/04/2023 [place] to being [place] of state. Please contact pt at [phone] documented in this encounter Plan of Treatment Upcoming Encounters Date Type Department Care Team (Late Contact Info) Description 08/31/2024 1:00 PM EST Clinical Support [facility] MEDICINE [address] [place] [address] 09/28/2024 1:30 PM EST Telemedicine [facility] MED [facility] PEDS [address] [place] [address] Liset Cage, RN [address] [place] [address] documented as of this encounter Visit Diagnoses Not on filedocumented in this encounter Care Teams Journeyman Pipe Welder Relationship Specialty Start Date End Date Mely Vasquez MD [address] [place] [address] PCP - General Family Medicine 05/11/21 documented as of this encounter
[2024-08-19 17:26] LABS: Estimated Average Glucose 100 mg/dL; Hemoglobin A1C 124.5571 umol/L; Hemoglobin A1c % 5.1 % (<6.0); Total Hemoglobin (HGBA1C) 3909.9527 umol/L
[2024-08-24 20:24] LABS: Testosterone, Free 67.6 pg/mL (35.0-155.0); Testosterone, Total 520 ng/dL (250-1100)
== END 2024-08-19 14:47 | disposition home or self-care (01) ==
LOC: HO.LAB 14:46
PROVIDERS: PCP Family Medicine; Visit Provider Urology
DX: Z51.81 Encounter for therapeutic drug level monitoring (principal); Z79.890 Hormone replacement therapy; R79.89 Other specified abnormal findings of blood chemistry
CPT/HCPCS: 36415; 83036; 84402; 84403; 85025

== ENCOUNTER 2024-08-31 14:25 | Outpatient (AMB) | payer MEDICARE, MEDICAID, SELFPAY ==
--- NOTE | 2024-08-31 14:26 | A.OFFVIS_ITS ---
Intake Visit Reasons: 4m/Testo Intake Note: Patient is present for 4M/TESTO Urology Medication:TESTOSTERONE Antibiotic Allergy:NONE Blood Thinner:NONE Sales Program Coordinator Required: No Allergies amitriptyline Allergy (Severe, Verified 08/31/24 14:29) Confusion morphine [MORPHINE] Allergy (Severe, Verified 08/31/24 14:29) CONSTIPATION, stomach upset ibuprofen [From MOTRIN] Adverse Reaction (Intermediate, Verified 08/31/24 14:29) ABD PAIN cyclobenzaprine [From FLEXERIL] Adverse Reaction (Mild, Verified 08/31/24 14:29) DRY MOUTH influenza H1N1 Allergy (Intermediate, Uncoded 08/31/24 14:29) Weakness Medication List - Last Reconciled 08/31/24 by Rita Edwards MD acetaminophen 500 mg PO Q6H PRN albuterol sulfate 90 mcg/actuation 2 puffs inhalation Q4-6H PRN alprazolam 0.5 mg PO DAILY PRN cetirizine 10 mg PO QAM cholecalciferol (vitamin D3) 50 mcg PO DAILY omeprazole 40 mg PO BID 30 days oxycodone 15 mg PO TID PRN sennosides (senna) 17.2 mg PO BEDTIME PRN testosterone 2 pumps topical DAILY 30 days valacyclovir 500 mg PO DAILY HPI Comments Details: 08/31/24--telehealth video follow-up low testosterone, I have reviewed testosterone levels have improved total testosterone is greater than 500. The patient states he still has problems with erections. He also is complaining of urinary frequency and urgency. He denies dysuria. I will have him follow-up to check urine and will also evaluate kidneys and bladder ultrasound prior. Consider addition of Cialis daily 5 mg in addition to testosterone replacement. 04/10/24--Telehealth fu, reviewed labs, PSA - 03/20/24- 0.58 ng/mL. Total and Free testosterone is low, 385 and 63.5. Discussed testosterone replacement therapy. 01/09/24--Hosea is here for evaluation for enlarged prostate. He complains of weak urinary stream and nocturia. He also has complaints of erectile dysfunction, not able to maintain an erection. Discussed trial of tamsulosin. Will check hormone levels, including free and total testosterone and PSA screening. [facility] Medical History (Updated 08/31/24 @ 15:57 by Rita Edwards MD) Left inguinal hernia (04/26/24) Left groin hernia Screening PSA (prostate specific antigen) Rib pain on left side Constipation GERD (gastroesophageal reflux disease) Depression with anxiety Asthma Colon cancer screening Pelvis, multiple open fractures with disruption of pelvic chinik Failed spinal cord stimulator Surgical History History of esophagogastroduodenoscopy (EGD) H/O colonoscopy History of arthroscopy of right knee History of back surgery H/O pelvic surgery H/O enucleation of left eyeball Social History Are you a primary college and career counselor to a significant other at home: No Do you presently have visiting nurse or other home services: No Alcohol intake: never Patient Tobacco Use Status: Current everyday Tobacco user Tobacco use type: Cigarette Cigarettes Per Day: 10 Telehealth Telehealth Telehealth Platform: 8Trip Location of provider rendering services: practice address Location of patient: address on file Telehealth method: video Patient verbally consented to treatment: Yes Patient verbally consented to billing insurance company: Yes Patient informed of any privacy concerns related to visit: Yes Assessment & Plan Assessment & Plan (1) Low testosterone: Code(s): R79.89 - Other specified abnormal findings of blood chemistry Category: Medical (2) Encounter for monitoring testosterone replacement therapy: Code(s): Z51.81 - Encounter for therapeutic drug level monitoring; Z79.890 - Hormone replacement therapy Category: Medical (3) Erectile dysfunction: Code(s): N52.9 - Male erectile dysfunction, unspecified Category: Medical (4) Urinary frequency: Code(s): R35.0 - Frequency of micturition Category: Medical Plan Testosterone replacement. check labs in 3 months Orders: Orders US retroperitoneal comp Today R35.0 - Frequency of micturition Medications: Refilled testosterone 2 pumps topical DAILY 30 days 75 grams 3RF Patient Instructions: The patient had an opportunity to ask questions regarding treatment plan. The patient expressed understanding and agreement with the above treatment plan. The patient is aware they should contact our office by phone for worsening of their current condition or the appearance of new symptoms. Compliance is encouraged with any medications and followup testing that is ordered. It is a privilege to be allowed the opportunity to participate in the urologic care of your patient. If you have any questions or concerns regarding treatment for the above conditions please do not hesitate to contact me. The office telephone contact is [phone]. This note is constructed in part using voice recognition software. While every effort has been made to ensure accuracy leather heel breaster errors may have been included. Yours sincerely, Rita Edwards MD Coding Level of Care Code Tele Est Pt Level 4 (66352) Diagnoses Low testosterone R79.89 Encounter for monitoring testosterone replacement therapy Z51.81; Z79.890 Erectile dysfunction N52.9 Urinary frequency R35.0
--- OUTSIDE RECORDS SUMMARY | 2024-08-31 16:05 | XMS_ITS | Encounter Summary ---
Author Organization [employer] Address [address] [facility] 7t [place] [address] Care Team Providers Care Editor Producer Name Role Phone Mely Vasquez MD Primary Care Provider [phone] Encounter Details Date Type Department Care Team (Latest Contact Info) Description 08/03/2024 3:00 PM EST Office Visit [facility] MEDICINE [address] [place], [place] [phone] Mely Vasquez MD [address] [place], [place] [phone] Bilateral inguinal hernia without obstruction or gangrene, [...] at home. Patient wanted to get a ASSISTANT ASSOCIATE PROFESSOR. Interval history: Patient underwent open left inguinal hernia repair on 04/24/24, performed by Dr. Hobson. He was seen by manager mail 06/03/24 after EGD evariation. He was told [...] mg daily Chronic GERD - Followed by [facility], last seen in May 2024, upcoming [...] (benign prostatic hyperplasia) - seen by urologist, [facility] - patient states he was prescribed tamsulosin [...] Primary - left inguinal hernia surgery by [facility] on 04/24/24 Other Visit Diagnoses [...] (benign prostatic hyperplasia) - seen by urologist, [facility] - patient states he was prescribed tamsulosin [...] ESTAssociated Problem(s): Chronic GERD - Followed by [facility], last seen in May 2024, upcoming [...] Care Team (Late st Contact Info) Description 09/08/2024 3:30 PM EST Clinical Support [facility] MEDICINE [address] [place] [address] 09/25/2024 2:30 PM EST Office Visit [facility] ADULT DENTAL [address] [place] [address] Luke Chacko DDS [address] [place] [address] 09/28/2024 1:30 PM EST Telemedicine [facility] MED & PEDS [address] [place], [place] [phone] Liset Cage, RN [address] [place] [address] documented as of this encounter Visit Diagnoses [...] documented as of this encounter Care Teams Editor Producer Relationship Specialty Start Date End Date Mely Vasquez MD [address] [place] [address] PCP - General Family Medicine 05/11/21 documented as of this encounter
--- OUTSIDE RECORDS SUMMARY | 2024-08-31 16:05 | XMS_ITS | Encounter Summary ---
Author Organization [employer] Address [address] [facility] 7t [place] [address] Care Team Providers Care Pull Over Name Role Phone Mely Vasquez MD Primary Care Provider [phone] Reason for Visit * Reason Onset Date Comments Med Refill 01/02/2024 Encounter Details Date Type Department Care Team ([facility] st Contact Info) Description 01/02/2024 Telephone [facility] MEDICINE [address] [place], [place] [phone] Mely Vasquez MD [address] [place], [place] [phone] Med Refill Social History Tobacco Use Types [...] immediate release tablet To be sent to: [facility]/PHARMACY #[id number] [place] [address] documented in this encounter Plan of Treatment Upcoming Encounters Date Type Department Care Team (Late st Contact Info) Description 09/08/2024 3:30 PM EST Clinical Support [facility] MEDICINE [address] [place] [address] 09/25/2024 2:30 PM EST Office Visit [facility] ADULT DENTAL [address] [place] [address] Luke Chacko DDS [address] [place] [address] 09/28/2024 1:30 PM EST Telemedicine [facility] MED [facility] PED[facility] [address] [place] [address] Liset Cage, APARNA 505 [place] [address] documented as of this encounter Visit Diagnoses Not on filedocumented in this encounter Additional Health Concerns Assessment Noted Time PHQ-9 Depression Total Score: 0 02/27/20 3:09 PM EDT documented as of this encounter Care Teams Pull Over Relationship Specialty Start Date End Date Mely Vasquez MD [address] [place] [address] PCP - General Family Medicine 05/11/21 documented as of this encounter
--- OUTSIDE RECORDS SUMMARY | 2024-08-31 16:05 | XMS_ITS | Encounter Summary ---
Author Organization [employer] Address [address] [facility] 7t [place] [address] Care Team Providers Care Carpet Weaver Name Role Phone Mely Vasquez MD Primary Care Provider [phone] Reason for Visit * Reason Onset Date Comments Med Refill 01/28/2024 Encounter Details Date Type Department Care Team ([facility] st Contact Info) Description 01/28/2024 Telephone [facility] MEDICINE [address] [place], [place] [phone] Mely Vasquez MD [address] [place], [place] [phone] Med Refill Social History Tobacco Use Types [...] immediate release tablet To be sent to: [facility]/pharmacy #[id number] [place] [address] documented in this encounter Plan of Treatment Upcoming Encounters Date Type Department Care Team (Late st Contact Info) Description 09/08/2024 3:30 PM EST Clinical Support [facility] MEDICINE [address] [place] [address] 09/25/2024 2:30 PM EST Office Visit [facility] ADULT DENTAL [address] [place] [address] Luke Chacko DDS [address] [place] [address] 09/28/2024 1:30 PM EST Telemedicine [facility] MED [facility] PEDS [address] [place] [address] Liset Cage, APARNA [address] [place] [address] documented as of this encounter Visit Diagnoses Not on filedocumented in this encounter Additional Health Concerns Assessment Noted Time PHQ-9 Depression Total Score: 0 02/27/20 3:09 PM EDT documented as of this encounter Care Teams Carpet Weaver Relationship Specialty Start Date End Date Mely Vasquez MD [address] [place] [address] PCP - General Family Medicine 05/11/21 documented as of this encounter
--- OUTSIDE RECORDS SUMMARY | 2024-08-31 16:05 | XMS_ITS | Encounter Summary ---
Author Organization [employer] Address [address] [facility] [address] 7[address] [place] [address] Care Team Providers Care Steerer Name Role Phone Mely Vasquez MD Primary Care Provider [phone] Reason for Visit * Reason Comments Med Refill Encounter Details Date Type Department Care Team ([facility] st Contact Info) Description 04/26/2024 Refill [facility] MEDICINE [address] [place], [place] [phone] Mely Vasquez MD [address] [place], [place] [phone] Chronic rhinosinusitis; Chronic sinusitis, unspecified location Social [...] Description 09/08/2024 3:30 PM EST Clinical Support [facility] MEDICINE [address] [place] [address] 09/25/2024 2:30 PM EST Office Visit [facility] ADULT DENTAL [address] [place] [address] Luke Chacko DDS [address] [place] [address] 09/28/2024 1:30 PM EST Telemedicine [facility] CH[facility] MED & PEDS [address] [place] [address] Liset Cage, RN [address] [place] [address] documented as of this encounter Visit Diagnoses Diagnosis Chronic rhinosinusitis Unspecified sinusitis (chronic) Chronic sinusitis, unspecified location documented in this encounter Additional Health Concerns Assessment Noted Time PHQ-9 Depression Total Score: 0 02/27/20 23 3:09 PM EDT documented as of this encounter Care Teams Steerer Relationship Specialty Start Date End Date Mely Vasquez MD [address] [place] [address] PCP - General Family Medicine 05/11/21 documented as of this encounter
--- OUTSIDE RECORDS SUMMARY | 2024-08-31 16:05 | XMS_ITS | Encounter Summary ---
Author Organization [employer] Address [address] [facility] 7t [place] [address] Care Team Providers Care Mechanical Systems Control Engineer Name Role Phone Mely Vasquez MD Primary Care Provider [phone] Reason for Visit * Reason Onset Date Comments Med Refill 01/01/2024 Encounter Details Date Type Department Care Team ([facility] st Contact Info) Description 01/01/2024 Telephone [facility] MEDICINE [address] [place], [place] [phone] Mely Vasquez MD [address] [place], [place] [phone] Med Refill Social History Tobacco Use Types [...] immediate release tablet To be sent to: [facility]/pharmacy #[id number] [place] [address] documented in this encounter Plan of Treatment Upcoming Encounters Date Type Department Care Team (Late st Contact Info) Description 09/08/2024 3:30 PM EST Clinical Support [facility] MEDICINE [address] [place] [address] 09/25/2024 2:30 PM EST Office Visit [facility] ADULT DENTAL [address] [place] [address] Luke Chacko DDS [address] [place] [address] 09/28/2024 1:30 PM EST Telemedicine [facility] CHC MED & PEDS 505 [place] [address] Liset Cage, APARNA [address] [place] [address] documented as of this encounter Visit Diagnoses Not on filedocumented in this encounter Additional Health Concerns Assessment Noted Time PHQ-9 Depression Total Score: 0 02/27/20 3:09 PM EDT documented as of this encounter Care Teams Mechanical Systems Control Engineer Relationship Specialty Start Date End Date Mely Vasquez MD [address] [place] [address] PCP - General Family Medicine 05/11/21 documented as of this encounter
--- OUTSIDE RECORDS SUMMARY | 2024-08-31 16:05 | XMS_ITS | Encounter Summary ---
Author Organization [employer] Address [address] [facility] 7t [place] [address] Care Team Providers Care Woodwind Reeds Cutter Name Role Phone Mely Vasquez MD Primary Care Provider Reason for Visit * Reason Onset Date Comments Med Refill 03/20/2024 Encounter Details Date Type Department Care Team ([facility] st Contact Info) Description 03/20/2024 Telephone [facility] MEDICINE [address] [place], [place] [phone] Mely Vasquez MD [address] [place], [place] [phone] Med Refill Social History Tobacco Use Types [...] immediate release tablet To be sent to: [facility]/pharmacy #[id number] [place] [address] documented in this encounter Plan of Treatment Upcoming Encounters Date Type Department Care Team (Late st Contact Info) Description 09/08/2024 3:30 PM EST Clinical Support [facility] MEDICINE [address] [place] [address] 09/25/2024 2:30 PM EST Office Visit [facility] ADULT DENTAL [address] [place] [address] Luke Chacko DDS [address] [place] [address] 09/28/2024 1:30 PM EST Telemedicine [facility] CHC MED & PEDS [address] [place] [address] Liset Cage, APARNA [address] [place] [address] documented as of this encounter Visit Diagnoses Not on filedocumented in this encounter Additional Health Concerns Assessment Noted Time PHQ-9 Depression Total Score: 0 02/27/20 3:09 PM EDT documented as of this encounter Care Teams Woodwind Reeds Cutter Relationship Specialty Start Date End Date Mely Vasquez MD [address] [place] [address] PCP - General Family Medicine 05/11/21 documented as of this encounter
--- OUTSIDE RECORDS SUMMARY | 2024-08-31 16:05 | XMS_ITS | Encounter Summary ---
Author Organization [employer] Address [address] [facility] 7t [place] [address] Care Team Providers Care Ground Service Equipment Mechanic Name Role Phone Mely Vasquez MD Primary Care Provider [phone] Reason for Visit * Reason Onset Date Comments Med Refill 05/21/2023 Encounter Details Date Type Department Care Team ([facility] st Contact Info) Description 05/21/2023 Telephone [facility] MEDICINE [address] [place], [place] [phone] Mely Vasquez MD [address] [place], [place] [phone] Med Refill Social History Tobacco Use Types [...] immediate release tablet, pt stated went to [facility] and the store has 40, pt is requesting order of 44 to be send [facility]. documented in this encounter Plan of Treatment Upcoming Encounters Date Type Department Care Team (Late st Contact Info) Description 09/08/2024 3:30 PM EST Clinical Support [facility] MEDICINE [address] [place] [address] 09/25/2024 2:30 PM EST Office Visit [facility] ADULT DENTAL [address] [place] [address] Luke Chacko DDS [address] [place] [address] 09/28/2024 1:30 PM EST Telemedicine [facility] CH[facility] MED [facility] PEDS [address] [place] [address] Liset Cage, RN [address] [place] [address] documented as of this encounter Visit Diagnoses Not on filedocumented in this encounter Additional Health Concerns Assessment Noted Time PHQ-9 Depression Total Score: 0 02/27/20 23 3:09 PM EDT documented as of this encounter Care Teams Ground Service Equipment Mechanic Relationship Specialty Start Date End Date Mely Vasquez MD [address] [place] [address] PCP - General Family Medicine 05/11/21 documented as of this encounter
--- OUTSIDE RECORDS SUMMARY | 2024-08-31 16:05 | XMS_ITS | Encounter Summary ---
Author Organization [employer] Address [address] [facility] [address] 7t [place] [address] Care Team Providers Care Clinical Rehabilitation Liaison Name Role Phone Mely Vasquez MD Primary Care Provider [phone] Encounter Details Date Type Department Care Team ([facility] st Contact Info) Description 08/19/2024 Orders [...] 3:30 PM EST Clinical Support [facility] MEDICINE [address] [place] [address] 09/25/2024 2:30 PM EST Office Visit [facility] ADULT DENTAL [address] [place], [place] [phone] Luke Chacko DDS [address] [place] [address] 09/28/2024 1:30 PM EST Telemedicine [facility] CHC MED & PEDS [address] [place], [place] [phone] Liset Cage, RN [address] [place] [address] documented as of this encounter Procedures Procedure Name Priority Date/Time Associated Diagnosis Comments CBC WITH AUTO DIFFERENTIAL Routine 08/19/2024 3:16 PM EST TESTOSTERONE, FREE (DIALYSIS) AND TOTAL,MS Routine 08/19/2024 3:16 PM EST HEMOGLOBIN A1C Routine 08/19/2024 3:16 PM EST documented in this encounter Results * Testosterone, Free (Dialysis) And Total, MS (08/19/2024 3:16 PM EST) Testosterone, Total 520 250 - 1100 ng/dL [facility] Comment:For additional infor shanon, please refer [email or web address](This link is being provided for informational/educational purposes only.)This test was developed and its analytical performancecharacteristics have been determined by [employer] [place], [place]. It hasnot been cleared or approved by the U.S. Food and DrugAdministration. This assay has been validated pursuantto the CLIA regulations and is used for clinicalpurposes. Testosterone, Free 67.6 35.0 - 155.0 pg/mL [facility] Comment:This test was develo ped and its analytical performancecharacteristics have been determined by [employer] [place], [place]. It hasnot been cleared or approved by the .. Food and DrugAdministration. This assay has been validated pursuantto the CLIA regulations and is used for clinicalpurposes.THIS TEST WAS PERFORMED AT:[employer] [id number] [place] [address]YOFIANRMARYSOL PANTOJA MD,PHD 08/19/2024 3:16 PM EST 08/19/2024 3:16 PM EST us Generic External Data Provider LAB BLOOD ORDERAB LES Final Result [facility] [address] [place] [phone] * Hemoglobin A1c (08/19/2024 3:16 PM EST) Hemoglobin A1c 5.1 <6.0 % [facility] Comment:Hemoglobin A1C Refer ence Range Adults: 4.8 - 6.0 % Non diabetic: < 6.0 % Goal: < 7.0 %Additional Action Suggested: > 8.0 %Note: Hemoglobin A1c results are invalid for patients with abnormal amounts of HbF. Blood transfusions may impact the HbA1c concentration in the patient sample. Estimated Average Glucose 100 mg/dL [facility] Comment:eAG = Estimated ave rage glucose which is %A1C expressed asaverage glucose, using the formula of the [id number] Glucose study (ADAG), Diabetes Care, Vol.31,#8,2007 08/19/2024 3:16 PM EST 08/19/2024 3:16 PM EST us Generic External Data Provider LAB BLOOD ORDERAB LES Final Result [facility] [address] [place] [address] [phone] * CBC auto differential (08/19/2024 3:16 PM EST) White Blood Count 10.5 4.8 - 10.8 X10*3/uL [facility] Red Blood Count 4.81 4.60 - 5.80 X10*6/uL [facility] Hemoglobin 14.7 14.0 - 18.0 g/dl [facility] Hematocrit 43.7 42.0 - 52.0 % [facility] Mean Corpuscular Volume 90.9 80.0 - 98.0 fL [facility] Mean Corpuscular Hemoglobin 30.6 27.0 - 33.0 pg [facility] Mean Corpuscular HGB Conc 33.6 31.0 - 36.0 g/dl [facility] Red Cell Distribution Width 13.3 11.0 - 16.0 % [facility] Platelet Count 301 160 - 400 X10*3/uL [facility] Mean Platelet Volume 11.0 9.4 - 12.4 fL [facility] Neutrophils Percent Auto 66.5 45 - 73 % [facility] Imm Gran Pct Auto 0.3 0.0 - 0.4 % [facility] Lymphocytes Percent Auto 27.2 20 - 40 % [facility] Monocytes Percent Auto 4.2 2 - 11 % [facility] Eosinophils Percent Auto 1.0 0 - 4 % [facility] Basophils Percent Auto 0.8 0 - 2 % [facility] NRBC Pct Auto 0.0 0.0 - 0.2 /100WBC [facility] Neutrophils Absolute Auto 7.0 2.0 - 8.3 x10*3/uL [facility] Imm Gran Abs Auto 0.03 0.00 - 0.03 X10*3/uL [facility] Lymphocytes Absolute Auto 2.9 1.2 - 4.9 X10*3/uL [facility] Monocytes Absolute Auto 0.4 0.1 - 1.2 X10*3/uL [facility] Eosinophils Absolute Auto 0.1 0.0 - 0.4 X10*3/uL [facility] Basophils Absolute Auto 0.1 0.0 - 0.2 X10*3/uL [facility] NRBC Abs Auto 0.000 0.0 - 0.012 X10*3/uL [facility] 08/19/2024 3:16 PM EST 08/19/2024 3:16 PM EST us Generic External Data Provider LAB BLOOD ORDERAB LES Final Result Performing Organization Address City/State/[facility] Co de Phone Number [facility] [address] [place] [address] [phone] documented in this encounter Visit Diagnoses Not on filedocumented in this encounter Additional Health Concerns Assessment Noted Time PHQ-9 Depression Total Score: 0 02/27/20 23 3:09 PM EDT documented as of this encounter Care Teams Clinical Rehabilitation Liaison Relationship Specialty Start Date End Date Mely Vasquez MD [address] [place] [address] PCP - General Family Medicine 05/11/21 documented as of this encounter
--- OUTSIDE RECORDS SUMMARY | 2024-08-31 16:05 | XMS_ITS | Encounter Summary ---
Author Organization [employer] Address [address] [facility] 7t [place] [address] Care Team Providers Care Parking Meter Attendant Name Role Phone Mely Vasquez MD Primary Care Provider [phone] Reason for Visit * Reason Onset Date Comments Med Refill 08/27/2024 Encounter Details Date Type Department Care Team ([facility] st Contact Info) Description 08/27/2024 Refill [facility] MEDICINE [address] [place], [place] [phone] Mely Vasquez MD [address] [place], [place] [phone] Lumbar disc disease Social History Tobacco Use [...] * Telephone Encounter - Hugo Meraz - 08/27/2024 9:24 AM EST TC from pt requesting medication refill. Medications needing refill: oxyCODONE (Roxicodone) 15 MG immediate release tablet To be sent to: [facility]/pharmacy #[id number] [place] [address] documented in this encounter Plan of Treatment Upcoming Encounters Date Type Department Care Team (Late st Contact Info) Description 09/08/2024 3:30 PM EST Clinical Support [facility] MEDICINE [address] [place] [address] 09/25/2024 2:30 PM EST Office Visit [facility] ADULT DENTAL [address] [place] [address] Luke Chacko DDS [address] [place] [address] 09/28/2024 1:30 PM EST Telemedicine [facility] CHC MED & PEDS [address] [place] [address] Liset Cage, APARNA [address] [place] [address] documented as of this encounter Visit Diagnoses Diagnosis Lumbar disc disease Other and unspecified disc disorder of lumbar region documented in this encounter Additional Health Concerns Assessment Noted Time PHQ-9 Depression Total Score: 0 02/27/20 23 3:09 PM EDT documented as of this encounter Care Teams Parking Meter Attendant Relationship Specialty Start Date End Date Mely Vasquez MD [address] [place] [address] PCP - General Family Medicine 05/11/21 documented as of this encounter
--- OUTSIDE RECORDS SUMMARY | 2024-08-31 16:05 | XMS_ITS | Encounter Summary ---
Author Organization [employer] Address 75 [facility] 7t [place] [address] Care Team Providers Care Jockey Room Custodian Name Role Phone Mely Vasquez MD Primary Care Provider [phone] Reason for Visit * Reason Onset Date Comments Durable Medical Equipment 03/23/2024 Encounter Details Date Type Department Care Team ([facility] st Contact Info) Description 03/23/2024 Telephone [facility] MEDICINE [address] [place], [place] [phone] Mely Vasquez MD [address] [place], [place] [phone] Durable Medical Equipment Social History Tobacco Use [...] Description 09/08/2024 3:30 PM EST Clinical Support [facility] MEDICINE [address] [place] [address] 09/25/2024 2:30 PM EST Office Visit [facility] ADULT DENTAL [address] [place] [address] Luke Chacko DDS [address] [place] [address] 09/28/2024 1:30 PM EST Telemedicine [facility] CHC MED & PEDS [address] [place] [address] Liset Cage, APARNA [address] [place] [address] documented as of this encounter Visit Diagnoses Not on filedocumented in this encounter Additional Health Concerns Assessment Noted Time PHQ-9 Depression Total Score: 0 02/27/20 23 3:09 PM EDT documented as of this encounter Care Teams Jockey Room Custodian Relationship Specialty Start Date End Date Mely Vasquez MD [address] [place] [address] PCP - General Family Medicine 05/11/21 documented as of this encounter
--- OUTSIDE RECORDS SUMMARY | 2024-08-31 16:05 | XMS_ITS | Encounter Summary ---
Author Organization [employer] Address 75 [facility] 7t [place] [address] Care Team Providers Care Engraver Name Role Phone Mely Vasquez MD Primary Care Provider [phone] Reason for Visit * Reason Onset Date Comments Med Refill 02/24/2024 Encounter Details Date Type Department Care Team ([facility] st Contact Info) Description 02/24/2024 Telephone [facility] MEDICINE [address] [place], [place] [phone] Mely Vasquez MD 230 [place], [place] [phone] Med Refill Social History Tobacco Use Types [...] immediate release tablet To be sent to: [facility]/pharmacy #[id number] [place], [place] - [address] [place] [address] documented in this encounter Plan of Treatment Upcoming Encounters Date Type Department Care Team (Late st Contact Info) Description 09/08/2024 3:30 PM EST Clinical Support [facility] MEDICINE [address] [place] [address] 09/25/2024 2:30 PM EST Office Visit [facility] ADULT DENTAL [address] [place] [address] Luke Chacko DDS [address] [place] [address] 09/28/2024 1:30 PM EST Telemedicine [facility] CHC MED & PEDS [address] [place] [address] Liset Cage, RN [address] [place] [address] documented as of this encounter Visit Diagnoses Not on filedocumented in this encounter Additional Health Concerns Assessment Noted Time PHQ-9 Depression Total Score: 0 02/27/20 23 3:09 PM EDT documented as of this encounter Care Teams Engraver Relationship Specialty Start Date End Date Mely Vasquez MD [address] [place] [address] PCP - General Family Medicine 05/11/21 documented as of this encounter
--- OUTSIDE RECORDS SUMMARY | 2024-08-31 16:05 | XMS_ITS | Encounter Summary ---
Author Organization [employer] Address 75 [facility] 7t [place] [address] Care Team Providers Care Bobbin Coil Winder Name Role Phone Mely Vasquez MD Primary Care Provider [phone] Reason for Visit * Reason Onset Date Comments Med Refill 04/22/2023 Encounter Details Date Type Department Care Team ([facility] st Contact Info) Description 04/22/[address] [facility] MEDICINE [address] [place], [place] [phone] Mely Vasquez MD 230 [place], [place] [phone] Med Refill Social History Tobacco Use Types [...] Description 09/08/2024 3:30 PM EST Clinical Support [facility] MEDICINE [address] [place] [address] 09/25/2024 2:30 PM EST Office Visit [facility] ADULT DENTAL [address] [place] [address] Luke Chacko DDS [address] [place] [address] 09/28/2024 1:[address] [facility] CHC MED & PEDS 505 [place], [place] [phone] Liset Cage, RN 505 [place], [place] [phone] documented as of this encounter Visit Diagnoses Not on filedocumented in this encounter Additional Health Concerns Assessment Noted Time PHQ-9 Depression Total Score: 0 02/27/20 23 3:09 PM EDT documented as of this encounter Care Teams Bobbin Coil Winder Relationship Specialty Start Date End Date Mely Vasquez MD [address] [place] [address] PCP - General Family Medicine 05/11/21 documented as of this encounter
--- OUTSIDE RECORDS SUMMARY | 2024-08-31 16:05 | XMS_ITS | Encounter Summary ---
Author Organization [employer] Address [address] [facility] 7t [place] [address] Care Team Providers Care Fuel Attendant Name Role Phone Mely Vasquez MD Primary Care Provider [phone] Reason for Visit * Reason Onset Date Comments Med Refill 06/26/2023 Encounter Details Date Type Department Care Team ([facility] st Contact Info) Description 06/26/2023 Refill [facility] MEDICINE [address] [place], [place] [phone] Mely Vasquez MD 230 [place], [place] [phone] Lumbar disc disease Social History Tobacco Use [...] (Roxicodone) 15 MG immediate release tablet [id number] [place] [address] documented in this encounter Plan of Treatment Upcoming Encounters Date Type Department Care Team (Late st Contact Info) Description 09/08/2024 3:30 PM EST Clinical Support [facility] MEDICINE [address] [place] [address] 09/25/2024 2:30 PM EST Office Visit [facility] ADULT DENTAL [address] [place] [address] Luke Chacko DDS [address] [place] [address] 09/28/2024 1:30 PM EST Telemedicine [facility] CHC MED & PEDS [address] [place] [address] Liset Cage, RN [address] [place] [address] documented as of this encounter Visit Diagnoses Diagnosis Lumbar disc disease Other and unspecified disc disorder of lumbar region documented in this encounter Additional Health Concerns Assessment Noted Time PHQ-9 Depression Total Score: 0 02/27/20 23 3:09 PM EDT documented as of this encounter Care Teams Fuel Attendant Relationship Specialty Start Date End Date Mely Vasquez MD [address] [place] [address] PCP - General Family Medicine 05/11/21 documented as of this encounter
--- OUTSIDE RECORDS SUMMARY | 2024-08-31 16:05 | XMS_ITS | Encounter Summary ---
Author Organization [employer] Address 75 [facility] 7t [place] [address] Care Team Providers Care Geospatial Information Scientist Name Role Phone Mely Vasquez MD Primary Care Provider [phone] Reason for Visit * Reason Onset Date Comments Med Refill 05/14/2024 Encounter Details Date Type Department Care Team ([facility] st Contact Info) Description 05/14/2024 Telephone [facility] MEDICINE [address] [place], [place] [phone] Mely Vasquez MD [address] [place], [place] [phone] Med Refill Social History Tobacco Use Types [...] Description 09/08/2024 3:30 PM EST Clinical Support [facility] MEDICINE [address] [place] [address] 09/25/2024 2:30 PM EST Office Visit [facility] ADULT DENTAL [address] [place] [address] Luke Chacko DDS [address] [place] [address] 09/28/2024 1:30 PM EST Telemedicine [facility] CHC MED & PEDS [address] [place] [address] Liset Cage, APRANA [address] [place] [address] documented as of this encounter Visit Diagnoses Not on filedocumented in this encounter Additional Health Concerns Assessment Noted Time PHQ-9 Depression Total Score: 0 02/27/20 3:09 PM EDT documented as of this encounter Care Teams Geospatial Information Scientist Relationship Specialty Start Date End Date Mely Vasquez MD [address] [place] [address] PCP - General Family Medicine 05/11/21 documented as of this encounter
--- OUTSIDE RECORDS SUMMARY | 2024-08-31 16:05 | XMS_ITS | Encounter Summary ---
Author Organization [employer] Address 75 [facility] 7t [place] [address] Care Team Providers Care Right Of Way Appraiser Name Role Phone Mely Vasquez MD Primary Care Provider [phone] Reason for Visit * Reason Onset Date Comments Med Refill 08/03/2024 Encounter Details Date Type Department Care Team (Late st Contact Info) Description 08/03/2024 Refill [facility] MEDICINE 230 [place], [place] [phone] Mely Vasquez MD 230 [place], [place] [phone] Lumbar disc disease Social History Tobacco Use [...] immediate release tablet To be sent to: [facility]/pharmacy #[id number] documented in this encounter Plan of Treatment Upcoming Encounters Date Type Department Care Team (Late st Contact Info) Description 09/08/2024 3:30 PM EST Clinical Support [facility] MEDICINE [address] [place] [address] 09/25/2024 2:30 PM EST Office Visit [facility] ADULT DENTAL [address] [place] [address] Luke Chacko DDS [address] [place] [address] 09/28/2024 1:30 PM EST Telemedicine [facility] CHC MED & PEDS [address] [place] [address] Liset Cage, RN [address] [place] [address] documented as of this encounter Visit Diagnoses Diagnosis Lumbar disc disease Other and unspecified disc disorder of lumbar region documented in this encounter Additional Health Concerns Assessment Noted Time PHQ-9 Depression Total Score: 0 02/27/20 23 3:09 PM EDT documented as of this encounter Care Teams Right Of Way Appraiser Relationship Specialty Start Date End Date Mely Vasquez MD [address] [place] [address] PCP - General Family Medicine 05/11/21 documented as of this encounter
--- OUTSIDE RECORDS SUMMARY | 2024-08-31 16:05 | XMS_ITS | Clinical Summary ---
Author Organization [employer] Address [address] [facility] 7[address] [place] [address] Care Team Providers Care Temperature Logging Operator Name Role Phone Mely Vasquez MD Primary Care Provider [phone] Allergies Active Allergy Reactions Criticality Noted Date [...] by mouth if needed at bedtime. 08/07/19 24 Active senna (Senokot) 8.6 MG tablet TAKE [...] DAY 40 mL 3 04/27/20 24 Active valACYclovir (Valtrex) 500 MG tabletIndicati ons:HSV (herpes simplex virus) anogenital infection Take 1 tablet by mouth every day 90 tablet 3 08/03/19 25 Active valsartan (Diovan) 40 MG tablet Take 1 tablet (40 mg) by mouth Once per day. 90 tablet 3 08/03/19 25 2025 Active oxyCODONE (Roxicodone) 15 MG immediate release tabletIndicati ons:Lumbar disc disease Take 1 tablet (15 mg) by mouth every 8 (eight) hours if needed (pain) for up to 28 days. Do not start before August 30, 2024. 84 tablet 08/30/19 25 2024 Active valACYclovir (Valtrex) 500 MG [...] 07, 2024. 84 tablet 07/07/20 24 2024 oxyCODONE (Roxicodone) 15 MG immediate release tabletIndicati ons:Lumbar disc disease Take 1 tablet (15 mg) by mouth every 8 (eight) hours if needed (pain) for up to 28 days. 84 tablet 08/03/19 25 2024 Discontinued(R eorder (will not trigger notification to Pharmacy)) Active Problems Problem Noted Date Diagnosed Date [...] 3:19 PM EST): - [place] [facility] states he was prescribed tamsulosin for a short-term only. 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 Assessment & Plan (12/27/2022 12:16 PM EDT): - continue montelukast - restart cetirizine - consider activity therapy specialist for allergy testing / immunotherapy Chronic [...] Assessment & Plan (02/27/2023 6:34 AM EDT): -[facility] provider: [facility] -Psychiatrist: Dr. Chavarria -Clinician: Previously Elyssa Serrano, [...] higher dose - continue following with current [facility] provider Assessment & Plan (12/18/2022 2:48 PM EDT): -[facility] provider: [facility] -Psychiatrist: Dr. Chavarria -Clinician: Previously Elyssa Serrano, but pt does not have one currently -Evaluated by Nicko from [facility] -Pt has an upcoming appt with Dr. [...] (08/09/2024 10:38 AM EST): - Followed [place] [facility], last seen in May 2024, upcoming follow up appointment in Jul 2024 - EGD in Feb 2024, small hiatal hernia and minimal gastritis - Continue Omeprazole 20mg BID - work on smoking cessation - avoid NSAIDs - H. Pylori test was negative in October 2023 Assessment & Plan (04/07/2024 2:23 PM EDT): - Followed by [facility], last seen in November 2023 - Continue Omeprazole 20mg BID - work on smoking cessation - avoid NSAIDs - H. Pylori test was negative in October 2023 Assessment & Plan (12/24/2023 4:41 PM EDT): - Followed by [facility], last seen in November 2023 - Continue Omeprazole 20mg BID - work on smoking cessation - avoid NSAIDs - H. Pylori test was negative in October 2023 Assessment & Plan (08/25/2023 4:45 PM EST): - Followed [place] [facility], last seen in Jun 2023 - Continue Omeprazole 20mg BID - work on smoking cessation - avoid NSAIDs Assessment & Plan (12/18/2022 2:52 PM EDT): Seen by GI, NOVEMBER 2022 -Rx Omeprazole 20mg BID -cont current tx plan -work on smoking cessation -avoid NSAIDs Blurry vision, right eye 12/18/2022 Assessment & Plan (08/25/2023 4:55 PM EST): - seen by urology physician assistant in Mar 2023 - dry eye - [...] stimulator removed on 09/26/[address] Beasley ([facility]). It was placed 7-8 years ago in [place]. -MRI in Feb 2023 showed: 1. Stable [...] post-laminectomy syndrome. -Continue judicious use of oxycodone -HELP DESK ANALYST agreement is up to date - Follow up in 3-4 mo or sooner prn Assessment & Plan (02/27/2023 6:20 AM EDT): - on chronic opioid treatment with oxycodone 15 mg q8 hours since 07/17/2017. - Nerve stimulator removed on 09/26/[address] Beasley ([facility]). It was placed 7-8 years ago in [place]. - MRI on 03/01/21 showed: --Postoperative findings [...] of arachnoiditis. -Continue judicious use of oxycodone -HELP DESK ANALYST agreement is up to date - Follow up in 3 mo or sooner prn - recent exacerbation in pain; adding celecoxib for short-term Assessment & Plan (12/18/2022 2:40 PM EDT): -He's on chronic opioid of oxycodone 15 mg q8 hours since 07/17/2017. -Nerve stimulator removed on 09/26/[address] Beasley ([facility]). It was placed 7-8 years ago in [place]. -MRI scheduled and completed, 03/01/21. ~MRI findings [...] of arachnoiditis. -Continue judicious use of oxycodone -HELP DESK ANALYST agreement review is up to date Vitamin [...] (12/24/2023 4:39 PM EDT): - following with [facility], last seen on 12/18/23 - plan to evaluate with EGD and abdominal US - continue omeprazole and sucralfate Colon cancer screening 12/19/202308/09 Acute upper respiratory infection 12/13/2022 02/26/2023 Encounters Date Type Department Care Team Description 08/27/2024 Refill [facility] [address] [place] [address] Mely Vasquez MD Lumbar disc disease 08/19/2024 Orders Only GENERIC EXTERNAL DATA DEPARTMENT Provider, Generic External Data 08/03/2024 3:00 PM EST Office Visit [facility] [address] [place] [address] Mely Vasquez MD Bilateral inguinal hernia without [...] disease; Herpes simplex 08/03/2024 Travel 08/03/2024 Refill [facility] [address] [place] [address] Mely Vasquez MD Lumbar disc disease 07/31/2024 Telephone [facility] [address] [place] [address] China Carrasquillo [place] chart prep 06/29/2024 1:00 PM EST Telemedicine [facility] [address] [place] [address] Liset Cage, APARNA Lumbar disc disease 06/29/2024 Refill [facility] [address] [place] [address] Liset Cage, RN Lumbar disc disease 06/29/2024 Travel 06/09/2024 Refill [facility] [address] [place] [address] Liset Cage, RN Lumbar disc disease 06/09/2024 Telephone [facility] [address] [place] [address] Mely Vasquez MD Med Refill from Last [...] Description 09/08/2024 3:30 PM EST Clinical Support [facility] [address] [place] [address] 09/25/2024 2:30 PM EST Office Visit [facility] ADULT DENTAL [address] [place] [address] Luke Chacko DDS [address] [place] [address] 09/28/2024 1:30 PM EST Telemedicine [facility] [address] [place] [address] Liset Cage, RN [address] [place] [address] Health Maintenance Due Date Last Done Comments CT Colonography 1975 Dental Oral Exam 1975 Dental Prophylaxis 1975 Dental X-Ray: Full Mouth 1975 FIT DNA/Cologuard 1975 FIT 1975 FOBT 1975 Sigmoidoscopy 1975 Family Planning (PISQ) 12/21/1990 Hepatitis C Screening 12/21/1993 Depression Screening 02/27/2024 02/26/2023, 02/26/2023 COVID-19 Vaccine (2023-08 5 season) 2024 06/12/2021, 12/10/2020, 11/12/2020 Influenza [...] 5 Years) and At-Risk Patients (6 to 49) Years) Completed 03/19/2023, 05/19/2018 HIB Vaccines Aged [...] Name Priority Date/Time Associated Diagnosis Comments TESTOSTERONE, FREE (DIALYSIS) AND TOTAL,MS Routine 08/19/2024 3:16 PM EST HEMOGLOBIN A1C Routine 08/19/2024 3:16 PM EST CBC WITH AUTO DIFFERENTIAL Routine 08/19/2024 3:16 [...] Blood Count 10.5 4.8 - 10.8 X10*3/uL [facility] Red Blood Count 4.81 4.60 - 5.80 X10*6/uL [facility] Hemoglobin 14.7 14.0 - 18.0 g/dl [facility] Hematocrit 43.7 42.0 - 52.0 % [facility] Mean Corpuscular Volume 90.9 80.0 - 98.0 fL [facility] Mean Corpuscular Hemoglobin 30.6 27.0 - 33.0 pg [facility] Mean Corpuscular HGB Conc 33.6 31.0 - 36.0 g/dl [facility] Red Cell Distribution Width 13.3 11.0 - 16.0 % [facility] Platelet Count 301 160 - 400 X10*3/uL [facility] Mean Platelet Volume 11.0 9.4 - 12.4 fL [facility] Neutrophils Percent Auto 66.5 45 - 73 % [facility] Imm Gran Pct Auto 0.3 0.0 - 0.4 % [facility] Lymphocytes Percent Auto 27.2 20 - 40 % [facility] Monocytes Percent Auto 4.2 2 - 11 % [facility] Eosinophils Percent Auto 1.0 0 - 4 % [facility] Basophils Percent Auto 0.8 0 - 2 % [facility] NRBC Pct Auto 0.0 0.0 - 0.2 /100WBC [facility] Neutrophils Absolute Auto 7.0 2.0 - 8.3 x10*3/uL [facility] Imm Gran Abs Auto 0.03 0.00 - 0.03 X10*3/uL [facility] Lymphocytes Absolute Auto 2.9 1.2 - 4.9 X10*3/uL [facility] Monocytes Absolute Auto 0.4 0.1 - 1.2 X10*3/uL [facility] Eosinophils Absolute Auto 0.1 0.0 - 0.4 X10*3/uL [facility] Basophils Absolute Auto 0.1 0.0 - 0.2 X10*3/uL [facility] NRBC Abs Auto 0.000 0.0 - 0.012 X10*3/uL [facility] 08/19/2024 3:16 PM EST 08/19/2024 3:16 PM EST us Generic External Data Provider LAB BLOOD ORDERAB LES Final Result [facility] [address] [place] [address] [phone] * Testosterone, Free (Dialysis) And Total, MS (08/19/2024 3:16 PM EST) Testosterone, Total 520 250 - 1100 ng/dL [facility] Comment:For additional infor shanon, please refer tohttp://education.Igl[employer]/faq/KxmmaImrcbxswgrlqQYPTNLKCE897(This link is being provided for informational/educational purposes only.)This test was developed and its analytical performancecharacteristics have been determined by [employer] [place], [place]. It hasnot been cleared or approved by the U.S. Food and DrugAdministration. This assay has been validated pursuantto the CLIA regulations and is used for clinicalpurposes. Testosterone, Free 67.6 35.0 - 155.0 pg/mL [facility] Comment:This test was develo ped and its analytical performancecharacteristics have been determined by [employer] [place], [place]. It hasnot been cleared or approved by the U.S. Food and DrugAdministration. This assay has been validated pursuantto the CLIA regulations and is used for clinicalpurposes.THIS TEST WAS PERFORMED AT:[facility] [place] [address]TCCNIJHMARYSOL PANTOJA MD,PHD 08/19/2024 3:16 PM EST 08/19/2024 3:16 PM EST Generic External Data Provider LAB BLOOD ORDERAB LES Final Result Performing Organization Address [facility] Co de Phone Number [facility] [address] [place] [phone] * Hemoglobin A1c (08/19/2024 3:16 PM EST) Hemoglobin A1c 5.1 <6.0 % [facility] Comment:Hemoglobin A1C Refer ence Range Adults: 4.8 - 6.0 % Non diabetic: < 6.0 % Goal: < 7.0 %Additional Action Suggested: > 8.0 %Note: Hemoglobin A1c results are invalid for patients with abnormal amounts of HbF. Blood transfusions may impact the HbA1c concentration in the patient sample. Estimated Average Glucose 100 mg/dL [facility] Comment:eAG = Estimated ave rage glucose which is %A1C expressed asaverage glucose, using the formula of the F6E-DndpfleCzirnbw Glucose study (ADAG), Diabetes Care, Vol.31,#8,Feb. 2007 08/19/2024 3:16 PM EST 08/19/2024 3:16 PM EST Generic External Data Provider LAB BLOOD ORDERAB LES Final Result Performing Organization Address [facility] Co de Phone Number [facility] [address] [place] [phone] * (ABNORMAL) Lipid Panel with Reflex to Direct LDL (08/27/2023 2:28 PM EST) Pathologist [facility] Triglycerides 177(H) <150 mg/dL [facility] Comment:Desirable Triglyceri de: less than 150 mg/dLBorderline High Triglyceride 150-199 mg/dLHigh Triglyceride: 200-499 mg/dLVery High Triglyceride: greater than or equal to 5OO mg/dL Cholesterol 162 <200 mg/dL [facility] Comment:Desirable Cholestero l: less than 200 mg/dLBorderline High Cholesterol: 200-239 mg/dLHigh Cholesterol: greater than 239 mg/dL LDL Cholesterol Calculated 94 <100 mg/dL [facility] Comment:Desirable LDL: less than 100 mg/dLNear Optimal/Above Optimal LDL: 110- 129 mg/dLBorderline High LDL: 130-159 mg/dLHigh LDL: 160-189 mg/dLVery High LDL: greater than or equal to 190 mg/dL HDL Cholesterol 33(L) >40 mg/dL [facility] Comment:Desirable HDL: great er than 40 mg/dL Note: This HDL assay may give artificially low results in patients with liver disease. Blood 08/27/2023 2:28 PM EST 08/27/2023 4:05 PM EST Mely Vasquez MD LAB BLOOD ORDERABLES Final Resul t [facility] [address] [place] [phone] * Colonoscopy (10/09/2022) [facility] Colonoscopy Normal Normal Historical Provider HEALTH MAINTENANCE Edited Result - Final * HIV AB/AG (04/27/2022 2:42 PM EDT) [facility] HIV AB/AG Nonreactive Nonreactive [facility] Comment: HIV-1 p24 Ag and/or HIV-1/HIV-2 [...] of detection of this assay. ?? [employer] HIV Ag/Ab Combo assay result and supplemental [...] Most Recently Relevant to Health Maintenance Insurance [facility] STANDARD [facility] MEDICARE ADVANTAGE HMO DENTAL-[facility] MEDICAID STAND [place] [phone] DENTAL - [facility] [place] [address] Care Teams Temperature Logging Operator Relationship Specialty Start Date End Date Mely Vasquez MD [address] [place] [address] PCP - General Family Medicine 05/11/21
--- OUTSIDE RECORDS SUMMARY | 2024-08-31 16:05 | XMS_ITS | Encounter Summary ---
Author Organization [employer] Address [address] [facility] [address] [place] [address] Care Team Providers Care Death Claim Examiner Name Role Phone Mely Vasquez MD Primary Care Provider [phone] Reason for Visit * Reason Onset Date Comments Appointment Request 01/31/2023 Encounter Details Date Type Department Care Team (Late Contact Info) Description 01/31/2023 Telephone [facility] [address] [place] [phone] Mely Vasquez MD [address] [place] [phone] Appointment Request Social History Tobacco Use Types [...] encounter Miscellaneous Notes * Telephone Encounter - Chenglia Arthur Vu - 01/31/2023 1:07 PM EDT Tc from pt requesting to r/s appt from [facility] on 02/04/2023 due to being out of state. Please contact pt at [phone] documented in this encounter Plan of Treatment Upcoming Encounters Date Type Department Care Team (Late st Contact Info) Description 09/08/2024 3:30 PM EST Clinical Support [facility] [address] [place] [address] 09/25/2024 2:30 PM EST Office Visit [facility] ADULT DENTAL [address] [place] [address] Luke Chacko DDS [address] [place] [address] 09/28/2024 1:30 PM EST Telemedicine [facility] [address] [place], [place] [phone] Liset Cage, RN [address] [place] [address] documented as of this encounter Visit Diagnoses Not on filedocumented in this encounter Care Teams Death Claim Examiner Relationship Specialty Start Date End Date Mely Vasquez MD [address] [place] [phone] PCP - General Family Medicine 05/11/21 documented as of this encounter
--- OUTSIDE RECORDS SUMMARY | 2024-08-31 16:05 | XMS_ITS | Encounter Summary ---
Author Organization [employer] Address [address] [facility] [address] [place] [address] Care Team Providers Care Rover Tender Name Role Phone Mely Vasquez MD Primary Care Provider [phone] Reason for Visit * Reason Onset Date Comments Reschedule 12/04/2023 Encounter Details Date Type Department Care Team ([facility] st Contact Info) Description 12/04/2023 Telephone [facility] [address] [place], [place] [phone] Mely Vasquez MD [address] [place], [place] [phone] Reschedule Social History Tobacco Use Types Packs/Day [...] AM EDT Tc from pt requesting r/s CONTRACT CLERK AUTOMOBILE appt documented in this encounter Plan of Treatment Upcoming Encounters Date Type Department Care Team (Late st Contact Info) Description 09/08/2024 3:30 PM EST Clinical Support [facility] [address] [place] [address] 09/25/2024 2:30 PM EST Office Visit [facility] ADULT DENT[facility] [address] [place] [address] Luke Chacko DDS [address] [place] [address] 09/28/2024 1:30 PM EST Telemedicine [facility] [address] [place] [address] Liset Cage, RN [address] [place] [address] documented as of this encounter Visit Diagnoses Not on filedocumented in this encounter Additional Health Concerns Assessment Noted Time PHQ-9 Depression Total Score: 0 02/27/20 23 3:09 PM EDT documented as of this encounter Care Teams Rover Tender Relationship Specialty Start Date End Date Mely Vasquez MD [address] [place] [address] PCP - General Family Medicine 05/11/21 documented as of this encounter
--- OUTSIDE RECORDS SUMMARY | 2024-08-31 16:05 | XMS_ITS | Encounter Summary ---
Author Organization [employer] Address [address] [facility] [address] [address] [place] [address] Care Team Providers Care Refinery Operator Light Ends Recovery Name Role Phone Mely Vasquez MD Primary Care Provider [phone] Encounter Details Date Type Department Care Team [...] Description 09/08/2024 3:30 PM EST Clinical Support [facility] [address] [place] [address] 09/25/2024 2:30 PM EST Office Visit [facility] ADULT [facility] [address] [place] [address] Luke Chacko DDS [address] [place] [address] 09/28/2024 1:30 PM EST Telemedicine [facility] [address] [place] [address] Liset Cage, RN [address] [place] [address] documented as of this encounter Visit Diagnoses Not on filedocumented in this encounter Additional Health Concerns Assessment Noted Time PHQ-9 Depression Total Score: 0 02/27/20 23 3:09 PM EDT documented as of this encounter Care Teams Refinery Operator Light Ends Recovery Relationship Specialty Start Date End Date Mely Vasquez MD [address] [place] [address] PCP - General Family Medicine 05/11/21 documented as of this encounter
--- OUTSIDE RECORDS SUMMARY | 2024-08-31 16:05 | XMS_ITS | Encounter Summary ---
Author Organization [employer] Address [address] [facility] 7t [place] [address] Care Team Providers Care Safety Deposit Boxes Custodian Name Role Phone Mely Vasquez MD Primary Care Provider [phone] Reason for Referral * Consultation (Routine) - Closed Specialty Diagnoses / Procedures Referred By Micheal mueller Referred To Contact Urology Diagnoses Benign prostatic hyperplasia, unspecified whether lower urinary tract symptoms present Mely Vasquez MD [address] [place] [address] Phone: tel: fax: [facility] Referral ID Status Reason Start Date Expiration Date V isits Requested Visits Authorized [id number] Closed Specialty Services Required 11/22/2023 11/21/2024 1 1 Encounter Details Date Type Department Care Team ([facility] st Contact Info) Description 11/22/2023 Orders Only [facility] [address] [place] [address] [phone] Mely Vasquez MD [address] [place] [address] [phone] Benign prostatic hyperplasia, unspecified whether lower urinary [...] Description 09/08/2024 3:30 PM EST Clinical Support [facility] [address] [place] [address] 09/25/2024 2:30 PM EST Office Visit [facility] ADULT DENTAL [address] [place] [address] Luke Chacko DDS [address] [place] [address] 09/28/2024 1:30 PM EST Telemedicine [facility] [address] [place] [address] Liset Cage, RN [address] [place] [address] Scheduled Referrals Name Type Priority Associated Diagnoses [...] males (Adult), [place] (12/02/2023 1:02 PM EDT) Pathologist [facility] Testosterone, Total 522 250 - 1100 ng/dL [facility] Comment:For additional infor matpatsy, please refer tohttp://education.Phreesia/faq/Au[email or web address](This link is being provided for informational/educational purposes only.)This test was developed and its analytical performancecharacteristics have been determined by [employer] [place], [place]. It hasnot been cleared or approved by the U.S. Food and DrugAdministration. This assay has been validated pursuantto the CLIA regulations and is used for clinicalpurposes.THIS TEST WAS PERFORMED AT:[employer] [place] [address]TKDEYBNMARYSOL PANTOJA MD,PHD Blood Venous blood specimen / Unknown 12/02/2023 1:02 PM EDT 12/02/2023 4:10 PM EDT us Mely Vasquez MD LAB BLOOD ORDERABLES Final Resul t [facility] [address] [place] [phone] * PSA,Total (12/02/2023 1:02 PM EDT) Prostate Specific Antigen 0.50 <0.05 - 4.0 ng/mL [facility] Comment:PSA methodology: Jennifer Dupree i ChemiluminescentMicroparticle Immunoassay (CMIA) Blood Venous blood specimen / Unknown 12/02/2023 1:02 PM EDT 12/02/2023 4:10 PM EDT us Mely Vasquez MD LAB BLOOD ORDERABLES Final Resul t [facility] [address] [place] [phone] [phone] documented in this encounter Visit Diagnoses Diagnosis Benign prostatic hyperplasia, unspecified whether lower urinary tract symptoms present- Primary documented in this encounter Additional Health Concerns Assessment Noted Time PHQ-9 Depression Total Score: 0 02/27/20 23 3:09 PM EDT documented as of this encounter Care Teams Safety Deposit Boxes Custodian Relationship Specialty Start Date End Date Mely Vasquez MD [address] [place] [phone] PCP - General Family Medicine 05/11/21 documented as of this encounter
--- OUTSIDE RECORDS SUMMARY | 2024-08-31 16:05 | XMS_ITS | Encounter Summary ---
Author Organization [employer] Address 75 [facility] 7t [place] [address] Care Team Providers Care Car Driver Name Role Phone Mely Vasquez MD Primary Care Provider [phone] Reason for Visit * Reason Onset Date Comments Med Refill 06/09/2024 Encounter Details Date Type Department Care Team ([facility] st Contact Info) Description 06/09/2024 Telephone [facility] MEDICINE 230 [place], [place] [phone] Mely Vasquez MD 230 [place], [place] [phone] Med Refill Social History Tobacco Use Types [...] immediate release tablet To be sent to: [facility]/pharmacy #[id number] [place] [address] documented in this encounter Plan of Treatment Upcoming Encounters Date Type Department Care Team (Late st Contact Info) Description 09/08/2024 3:30 PM EST Clinical Support [facility] MEDICINE 230 [place] [address] 09/25/2024 2:30 PM EST Office Visit [facility] ADULT DENTAL 230 [place] [address] Luke Chacko DDS 230 [place] [address] 09/28/2024 1:30 PM EST Telemedicine [facility] CHC MED & PEDS 505 [place] [address] Liset Cage, APARNA 505 [place] [address] documented as of this encounter Visit Diagnoses Not on filedocumented in this encounter Additional Health Concerns Assessment Noted Time PHQ-9 Depression Total Score: 0 02/27/20 23 3:09 PM EDT documented as of this encounter Care Teams Car Driver Relationship Specialty Start Date End Date Mely Vasquez MD [address] [place] [address] PCP - General Family Medicine 05/11/21 documented as of this encounter
--- OUTSIDE RECORDS SUMMARY | 2024-08-31 16:05 | XMS_ITS | Encounter Summary ---
Author Organization [employer] Address 75 [facility] 7t [place] [address] Care Team Providers Care Color Matcher Name Role Phone Mely Vasquez MD Primary Care Provider [phone] Reason for Visit * Reason Onset Date Comments Med Refill 04/16/2024 Encounter Details Date Type Department Care Team ([facility] st Contact Info) Description 04/16/2024 Telephone [facility] MEDICINE 230 [place], [place] [phone] Mely Vasquez MD 230 [place], [place] [phone] Med Refill Social History Tobacco Use Types [...] Description 09/08/2024 3:30 PM EST Clinical Support [facility] MEDICINE 230 [place] [address] 09/25/2024 2:30 PM EST Office Visit [facility] ADULT DENTAL 230 [place] [address] Luke Chacko DDS 230 [place] [address] 09/28/2024 1:30 PM EST Telemedicine [facility] CHC MED & PEDS 505 [place] [address] Liset Cage, RN 505 [place] [address] documented as of this encounter Visit Diagnoses Not on filedocumented in this encounter Additional Health Concerns Assessment Noted Time PHQ-9 Depression Total Score: 0 02/27/20 23 3:09 PM EDT documented as of this encounter Care Teams Color Matcher Relationship Specialty Start Date End Date Mely Vasquze MD 230 [place] [address] PCP - General Family Medicine 05/11/21 documented as of this encounter
--- OUTSIDE RECORDS SUMMARY | 2024-08-31 16:05 | XMS_ITS | Encounter Summary ---
Author Organization [employer] Address [address] [facility] [address] 7t [place] [address] Care Team Providers Care Floor Covering Printer Assistant Name Role Phone Mely Vasquez MD Primary Care Provider [phone] Reason for Visit * Reason Onset Date Comments FYI 05/15/2023 Encounter Details Date Type Department Care Team ([facility] st Contact Info) Description 05/15/2023 Telephone [facility] MEDICINE 230 [place], [place] [phone] Mely Vasquez MD 230 [place], [place] [phone] FYI Social History Tobacco Use Types Packs/Day [...] pt got an appt for 05/24/2023 at [facility] for lumbar pain. documented in this encounter Plan of Treatment Upcoming Encounters Date Type Department Care Team (Late st Contact Info) Description 09/08/2024 3:30 PM EST Clinical Support [facility] MEDICINE 230 [place] [address] 09/25/2024 2:30 PM EST Office Visit [facility] ADULT DENTAL 230 [place] [address] Luke Chacko DDS 230 [place] [address] 09/28/2024 1:30 PM EST Telemedicine [facility] CHC MED & PEDS 505 [place] [address] Liset Cage, APARNA 505 [place] [address] documented as of this encounter Visit Diagnoses Not on filedocumented in this encounter Additional Health Concerns Assessment Noted Time PHQ-9 Depression Total Score: 0 02/27/20 23 3:09 PM EDT documented as of this encounter Care Teams Floor Covering Printer Assistant Relationship Specialty Start Date End Date Mely Vasquez MD 230 [place] [address] PCP - General Family Medicine 05/11/21 documented as of this encounter
--- OUTSIDE RECORDS SUMMARY | 2024-08-31 16:05 | XMS_ITS | Clinical Summary ---
Author Organization [employer] [facility] ity Address [address] [place] [address] Care Team Providers Care Advertising Director Name Role Phone Unavailable Primary Care Provider [...]
== END 2024-08-31 16:24 | disposition home or self-care (01) ==
LOC: HO.HUSH 14:25
PROVIDERS: PCP Family Medicine; Visit Provider Urology
DX: R79.89 Other specified abnormal findings of blood chemistry (principal); Z51.81 Encounter for therapeutic drug level monitoring; Z79.890 Hormone replacement therapy; N52.9 Male erectile dysfunction, unspecified; R35.0 Frequency of micturition
CPT/HCPCS: 99214

== ENCOUNTER 2024-10-27 13:27 | Outpatient (REF) | payer MEDICARE, MEDICAID, SELFPAY ==
--- NOTE | ~2024-10-27 | US_ITS ---
EXAMINATION: US RETROPERITONEUM HISTORY: R35.0 - Frequency of micturition TECHNIQUE: Real-time grayscale ultrasound imaging of the kidneys was performed and images were reviewed. COMPARISON: Correlation is made with an abdominal ultrasound dated 01/09/2024. FINDINGS: Right kidney: The right kidney measures 9.6 x 5.1 x 6.0 cm. Renal parenchymal echotexture and thickness are normal. There are no masses. There is a probable small extrarenal pelvis. There is no hydronephrosis or renal calculi. Left Kidney: The left kidney measures 9.2 x 5.1 x 4.5 cm. Renal parenchymal echotexture and thickness are normal. There are no masses. There is no hydronephrosis or renal calculi. The urinary bladder is unremarkable. Bilateral ureteral jets are identified. Before voiding, the urinary bladder measured 12.5 x 8.7 x 9.2 cm, for an estimated volume of 522 mL. After voiding, the urinary bladder measured 4.7 x 3.9 x 4.6 cm, for an estimated volume of 44 mL. The prostate measures 3.2 x 2.3 x 3.9 cm. US/US retroperitoneal comp IMPRESSION: Unremarkable renal ultrasound. Post void bladder residual of 44 mL. Electronically signed by: Noe Martinez MD 10/28/2024 07:10 AM EDT
--- OUTSIDE RECORDS SUMMARY | 2024-10-27 15:52 | XMS_ITS | Encounter Summary ---
Author Organization [employer] Address 75 [facility] 7t [place] [address] Care Team Providers Care Railroad Firer Name Role Phone Mely Vasquez MD Primary Care Provider [phone] Reason for Visit * Reason Onset Date Comments Med Refill 10/21/2024 Encounter Details Date Type Department Care Team ([facility] st Contact Info) Description 10/21/2024 Telephone [facility] MEDICINE 230 [place], [place] [phone] Mely Vasquez MD 230 [place], [place] [phone] Med Refill Social History Tobacco Use Types [...] * Telephone Encounter - Ben Dowell - 10/21/2024 8:15 AM EDT TC from pt requesting medication refill. Medications needing refill : oxyCODONE (Roxicodone) 15 MG immediate release tablet To be sent to: [facility]/pharmacy #[id number] [place] [address] documented in this encounter Plan of Treatment Upcoming Encounters Date Type Department Care Team (Late st Contact Info) Description 11/19/2024 11:00 AM EDT Office Visit [facility] MEDICINE 230 [place] [address] Mely Vasquez MD 230 [place] [address] 01/06/2025 3:15 PM EDT Clinical Support [facility] CHC MED & PEDS 505 [place] [address] Liset Cage, APARNA 505 [place] [address] documented as of this encounter Visit Diagnoses Not on filedocumented in this encounter Additional Health Concerns Assessment Noted Time PHQ-9 Depression Total Score: 0 02/27/20 23 3:09 PM EDT documented as of this encounter Care Teams Railroad Firer Relationship Specialty Start Date End Date Mely Vasquez MD [address] [place] [address] PCP - General Family Medicine 05/11/21 documented as of this encounter
--- OUTSIDE RECORDS SUMMARY | 2024-10-27 15:52 | XMS_ITS | Encounter Summary ---
Author Organization [employer] Address [address] [facility] [address] 7t [place] [address] Care Team Providers Care Weight Yardage Checker Name Role Phone Mely Vasquez MD Primary Care Provider [phone] Reason for Visit * Reason Onset Date Comments FYI 05/15/2023 Encounter Details Date Type Department Care Team ([facility] st Contact Info) Description 05/15/2023 Telephone [facility] MEDICINE 230 [place], [place] [phone] Mely Vasquez MD 230 [place], [place] [phone] FYI Social History Tobacco Use Types Packs/Day [...] pt got an appt for 05/24/2023 at [place] for lumbar pain. documented in this encounter Plan of Treatment Upcoming Encounters Date Type Department Care Team (Late st Contact Info) Description 11/19/2024 11:00 AM EDT Office Visit [facility] MEDICINE 230 [place] [address] Mely Vasquez MD 230 [place] [address] 01/06/2025 3:15 PM EDT Clinical Support [facility] CHC MED & PEDS 505 [place] [address] Liset Cage, APARNA 505 [place] [address] documented as of this encounter Visit Diagnoses Not on filedocumented in this encounter Additional Health Concerns Assessment Noted Time PHQ-9 Depression Total Score: 0 02/27/20 23 3:09 PM EDT documented as of this encounter Care Teams Weight Yardage Checker Relationship Specialty Start Date End Date Mely Vasquez MD [address] [place] [address] PCP - General Family Medicine 05/11/21 documented as of this encounter
--- OUTSIDE RECORDS SUMMARY | 2024-10-27 15:52 | XMS_ITS | Encounter Summary ---
Author Organization [employer] Address 75 [facility] 7t [place] [address] Care Team Providers Care Philosophy Professor Name Role Phone Mely Vasquez MD Primary Care Provider [phone] Reason for Visit * Reason Onset Date Comments Med Refill 02/24/2024 Encounter Details Date Type Department Care Team ([facility] st Contact Info) Description 02/24/2024 Telephone [facility] MEDICINE 230 [place], [place] [phone] Mely Vasquez MD 230 [place], [place] [phone] Med Refill Social History Tobacco Use Types [...] immediate release tablet To be sent to: [facility]/pharmacy #[id number] [place] [address] documented in this encounter Plan of Treatment Upcoming Encounters Date Type Department Care Team (Late st Contact Info) Description 11/19/2024 11:00 AM EDT Office Visit [facility] MEDICINE 230 [place] [address] Mely Vasquez MD 230 [place] [address] 01/06/2025 3:15 PM EDT Clinical Support [facility] CHC MED & PEDS 505 [place] [address] Liset Cage, RN 505 [place] [address] documented as of this encounter Visit Diagnoses Not on filedocumented in this encounter Additional Health Concerns Assessment Noted Time PHQ-9 Depression Total Score: 0 02/27/20 23 3:09 PM EDT documented as of this encounter Care Teams Philosophy Professor Relationship Specialty Start Date End Date Mely Vasquez MD 230 [place] [address] PCP - General Family Medicine 05/11/21 documented as of this encounter
--- OUTSIDE RECORDS SUMMARY | 2024-10-27 15:52 | XMS_ITS | Encounter Summary ---
Author Organization [employer] Address 75 [facility] 7t [place] [address] Care Team Providers Care Strawhat Sizer Name Role Phone Mely Vasquez MD Primary Care Provider [phone] Reason for Visit * Reason Onset Date Comments Med Refill 05/21/2023 Encounter Details Date Type Department Care Team ([facility] st Contact Info) Description 05/21/2023 Telephone [facility] MEDICINE 230 [place], [place] [phone] Mely Vasquez MD 230 [place], [place] [phone] Med Refill Social History Tobacco Use Types [...] encounter Miscellaneous Notes * Telephone Encounter - Beklis Sheffield - 05/21/2023 3:36 PM EDT Tc from pt requesting med refill on oxyCODONE (Roxicodone) 15 MG immediate release tablet, pt stated went to [facility] and the store has 40, pt is requesting order of 44 to be send [facility]. documented in this encounter Plan of Treatment Upcoming Encounters Date Type Department Care Team (Late st Contact Info) Description 11/19/2024 11:00 AM EDT Office Visit [facility] MEDICINE [address] [place] [address] Mely Vasquez MD 230 [place] [address] 01/06/2025 3:15 PM EDT Clinical Support [facility] CHC MED & PEDS 505 [place] [address] Liset Cage, APARNA 505 [place] [address] documented as of this encounter Visit Diagnoses Not on filedocumented in this encounter Additional Health Concerns Assessment Noted Time PHQ-9 Depression Total Score: 0 02/27/20 23 3:09 PM EDT documented as of this encounter Care Teams Strawhat Sizer Relationship Specialty Start Date End Date Mely Vasquez MD 230 [place] [address] PCP - General Family Medicine 05/11/21 documented as of this encounter
--- OUTSIDE RECORDS SUMMARY | 2024-10-27 15:52 | XMS_ITS | Encounter Summary ---
Author Organization [employer] Address 75 [facility] 7t [place] [address] Care Team Providers Care Slot Editor Name Role Phone Mely Vasquez MD Primary Care Provider Reason for Visit * Reason Onset Date Comments Durable Medical Equipment 03/23/2024 Encounter Details Date Type Department Care Team ([facility] st Contact Info) Description 03/23/2024 Telephone [facility] MEDICINE 230 [place], [place] [phone] Mely Vasquez MD 230 [place], [place] [phone] Durable Medical Equipment Social History Tobacco Use [...] 11/19/2024 11:00 AM EDT Office Visit [facility] MEDICINE 230 [place] [address] Mely Vasquez MD 230 [place] [address] 01/06/2025 3:15 PM EDT Clinical Support [facility] CHC MED & PEDS 505 [place] [address] Liset Cage, APARNA 505 [place] [address] documented as of this encounter Visit Diagnoses Not on filedocumented in this encounter Additional Health Concerns Assessment Noted Time PHQ-9 Depression Total Score: 0 02/27/20 23 3:09 PM EDT documented as of this encounter Care Teams Slot Editor Relationship Specialty Start Date End Date Mely Vasquez MD 230 [place] [address] PCP - General Family Medicine 05/11/21 documented as of this encounter
--- OUTSIDE RECORDS SUMMARY | 2024-10-27 15:52 | XMS_ITS | Encounter Summary ---
Author Organization [employer] Address 75 [facility] 7t [place] [address] Care Team Providers Care Dispatcher Maintenance Service Name Role Phone Mely Vasquez MD Primary Care Provider [phone] Reason for Visit * Reason Onset Date Comments Med Refill 06/26/2023 Encounter Details Date Type Department Care Team ([facility] st Contact Info) Description 06/26/2023 Refill [facility] MEDICINE 230 [place], [place] [phone] Mely Vasquez MD 230 [place], [place] [phone] Lumbar disc disease Social History Tobacco Use [...] (Roxicodone) 15 MG immediate release tablet [id number] [place] [address] documented in this encounter Plan of Treatment Upcoming Encounters Date Type Department Care Team (Late st Contact Info) Description 11/19/2024 11:00 AM EDT Office Visit [facility] MEDICINE 230 [place] [address] Mely Vasquez MD 230 [place] [address] 01/06/2025 3:15 PM EDT Clinical Support [facility] CHC MED & PEDS 505 [place] [address] Liset Cage, RN 505 [place] [address] documented as of this encounter Visit Diagnoses Diagnosis Lumbar disc disease Other and unspecified disc disorder of lumbar region documented in this encounter Additional Health Concerns Assessment Noted Time PHQ-9 Depression Total Score: 0 02/27/20 23 3:09 PM EDT documented as of this encounter Care Teams Dispatcher Maintenance Service Relationship Specialty Start Date End Date Mely Vasquez MD [address] [place] [address] PCP - General Family Medicine 05/11/21 documented as of this encounter
--- OUTSIDE RECORDS SUMMARY | 2024-10-27 15:52 | XMS_ITS | Encounter Summary ---
Author Organization [facility] [employer] Address 75 [facility] 7t [place] [address] Care Team Providers Care Heavy Equipment Service Technician Name Role Phone Mely Vasquez MD Primary Care Provider [phone] Reason for Visit * Reason Onset Date Comments Med Refill 01/02/2024 Encounter Details Date Type Department Care Team ([facility] st Contact Info) Description 01/02/2024 Telephone [facility] MEDICINE 230 [place], [place] [phone] Mely Vasquez MD 230 [place], [place] [phone] Med Refill Social History Tobacco Use Types [...] immediate release tablet To be sent to: [facility]/PHARMACY #[id number] [place] [address] documented in this encounter Plan of Treatment Upcoming Encounters Date Type Department Care Team (Late st Contact Info) Description 11/19/2024 11:00 AM EDT Office Visit [facility] MEDICINE [address] [place] [address] Mely Vasquez MD 230 [place] [address] 01/06/2025 3:15 PM EDT Clinical Support [facility] CHC MED & PEDS 505 [place] [address] Liset Cage, APARNA 505 [place] [address] documented as of this encounter Visit Diagnoses Not on filedocumented in this encounter Additional Health Concerns Assessment Noted Time PHQ-9 Depression Total Score: 0 02/27/20 3:09 PM EDT documented as of this encounter Care Teams Heavy Equipment Service Technician Relationship Specialty Start Date End Date Mely Vasquez MD [address] [place] [address] PCP - General Family Medicine 05/11/21 documented as of this encounter
--- OUTSIDE RECORDS SUMMARY | 2024-10-27 15:52 | XMS_ITS | Clinical Summary ---
Author Organization [employer] [facility] ity Address [address] [place] [address] Care Team Providers Care Housekeeping Department Worker Name Role Phone Unavailable Primary Care Provider Unavailabl e Social History Tobacco Use Types Packs/Day Years Used Date Smoking Tobacco: Never Assessed Sex and Gender Information Value Date Recorded Sex Assigned at Not on file Legal Sex Male 10:47 PM EST Gender Identity Not on file Sexual Orientation [...] patient's age to complete this topic Meningococcal B Vacine Aged Out No lo nger eligible based on patient's age to complete [...]
--- OUTSIDE RECORDS SUMMARY | 2024-10-27 15:52 | XMS_ITS | Encounter Summary ---
Author Organization [employer] Address [address] [facility] [address] 7t [place] [address] Care Team Providers Care Disaster Recovery Coordinator Name Role Phone Mely Vasquez MD Primary Care Provider [phone] Reason for Visit * Reason Onset Date Comments Reschedule 12/04/2023 Encounter Details Date Type Department Care Team ([facility] st Contact Info) Description 12/04/2023 Telephone [facility] MEDICINE 230 [place], [place] [phone] Mely Vasquez MD 230 [place], [place] [phone] Reschedule Social History Tobacco Use Types Packs/Day [...] AM EDT Tc from pt requesting r/s FUEL QUALITY TECH appt documented in this encounter Plan of Treatment Upcoming Encounters Date Type Department Care Team (Late st Contact Info) Description 11/19/2024 11:00 AM EDT Office Visit [facility] MEDICINE 230 [place] [address] Mely Vasquez MD 230 [place] [address] 01/06/2025 3:15 PM EDT Clinical Support [facility] CHC MED & PEDS 505 [place] [address] Liset Cage, APARNA 505 [place] [address] documented as of this encounter Visit Diagnoses Not on filedocumented in this encounter Additional Health Concerns Assessment Noted Time PHQ-9 Depression Total Score: 0 02/27/20 23 3:09 PM EDT documented as of this encounter Care Teams Disaster Recovery Coordinator Relationship Specialty Start Date End Date Mely Vasquez MD [address] [place] [address] PCP - General Family Medicine 05/11/21 documented as of this encounter
--- OUTSIDE RECORDS SUMMARY | 2024-10-27 15:52 | XMS_ITS | Encounter Summary ---
Author Organization [employer] Address 75 [facility] 7t [place] [address] Care Team Providers Care Stitch Burnisher Name Role Phone Mely Vasquez MD Primary Care Provider [phone] Reason for Visit * Reason Onset Date Comments Med Refill 04/22/2023 Encounter Details Date Type Department Care Team ([facility] st Contact Info) Description 04/22/2023 Telephone [facility] MEDICINE 230 [place], [place] [phone] Mely Vasquez MD 230 [place], [place] [phone] Med Refill Social History Tobacco Use Types [...] Description 11/19/2024 11:00 AM EDT Office Visit [facility] MEDICINE 230 [place] [address] Mely Vasquez MD 230 [place] [address] 01/06/2025 3:15 PM EDT Clinical Support [facility] MED & PEDS 505 [place], [place] [phone] Liset Cage, APARNA 505 [place], [place] [phone] documented as of this encounter Visit Diagnoses Not on filedocumented in this encounter Additional Health Concerns Assessment Noted Time PHQ-9 Depression Total Score: 0 02/27/20 23 3:09 PM EDT documented as of this encounter Care Teams Stitch Burnisher Relationship Specialty Start Date End Date Mely Vasquez MD [address] [place] [address] PCP - General Family Medicine 05/11/21 documented as of this encounter
--- OUTSIDE RECORDS SUMMARY | 2024-10-27 15:52 | XMS_ITS | Encounter Summary ---
Author Organization [employer] Address 75 [facility] 7t [place] [address] Care Team Providers Care Headrig Sawyer Name Role Phone Mely Vasquez MD Primary Care Provider [phone] Reason for Visit * Reason Onset Date Comments Med Refill 06/09/2024 Encounter Details Date Type Department Care Team ([facility] st Contact Info) Description 06/09/2024 Telephone [facility] MEDICINE 230 [place], [place] [phone] Mely Vasquez MD 230 [place], [place] [phone] Med Refill Social History Tobacco Use Types [...] immediate release tablet To be sent to: [facility]/pharmacy #[id number] [place] [address] documented in this encounter Plan of Treatment Upcoming Encounters Date Type Department Care Team (Late st Contact Info) Description 11/19/2024 11:00 AM EDT Office Visit [facility] MEDICINE 230 [place] [address] Mely Vasquez MD 230 [place] [address] 01/06/2025 3:15 PM EDT Clinical Support [facility] CHC MED & PEDS 505 [place] [address] Liset Cage, APARNA 505 [place] [address] documented as of this encounter Visit Diagnoses Not on filedocumented in this encounter Additional Health Concerns Assessment Noted Time PHQ-9 Depression Total Score: 0 02/27/20 23 3:09 PM EDT documented as of this encounter Care Teams Headrig Sawyer Relationship Specialty Start Date End Date Mely Vasquez MD [address] [place] [address] PCP - General Family Medicine 05/11/21 documented as of this encounter
--- OUTSIDE RECORDS SUMMARY | 2024-10-27 15:52 | XMS_ITS | Encounter Summary ---
Author Organization [employer] Address 75 [facility] 7t [place] [address] Care Team Providers Care Hedis Specialist Name Role Phone Mely Vasquez MD Primary Care Provider [phone] Reason for Visit * Reason Onset Date Comments Med Refill 04/16/2024 Encounter Details Date Type Department Care Team ([facility] st Contact Info) Description 04/16/2024 Telephone [facility] MEDICINE 230 [place], [place] [phone] Mely Vasquez MD 230 [place], [place] [phone] Med Refill Social History Tobacco Use Types [...] immediate release tablet To be sent to: [facility] documented in this encounter Plan of Treatment Upcoming Encounters Date Type Department Care Team (Late st Contact Info) Description 11/19/2024 11:00 AM EDT Office Visit [facility] MEDICINE 230 [place] [address] Mely Vasquez MD 230 [place] [address] 01/06/2025 3:15 PM EDT Clinical Support [facility] CHC MED & PEDS 505 [place] [address] Liset Cage, APARNA 505 [place] [address] documented as of this encounter Visit Diagnoses Not on filedocumented in this encounter Additional Health Concerns Assessment Noted Time PHQ-9 Depression Total Score: 0 02/27/20 23 3:09 PM EDT documented as of this encounter Care Teams Hedis Specialist Relationship Specialty Start Date End Date Mely Vasquez MD [address] [place] [address] PCP - General Family Medicine 05/11/21 documented as of this encounter
--- OUTSIDE RECORDS SUMMARY | 2024-10-27 15:52 | XMS_ITS | Encounter Summary ---
Author Organization [employer] Address 75 [facility] 7t [place] [address] Care Team Providers Care Fulfillment Representative Name Role Phone Mely Vasquez MD Primary Care Provider [phone] Reason for Visit * Reason Onset Date Comments Med Refill 03/20/2024 Encounter Details Date Type Department Care Team ([facility] st Contact Info) Description 03/20/2024 Telephone [facility] MEDICINE 230 [place], [place] [phone] Mely Vasquez MD 230 [place], [place] [phone] Med Refill Social History Tobacco Use Types [...] tablet To be sent to: [facility]/pharmacy #[id number] [place] [address] documented in this encounter Plan of Treatment Upcoming Encounters Date Type Department Care Team (Late st Contact Info) Description 11/19/2024 11:00 AM EDT Office Visit [facility] MEDICINE 230 [place] [address] Mely Vasquez MD 230 [place] [address] 01/06/2025 3:15 PM EDT Clinical Support [facility] MED & PEDS 505 [place] [address] Liset Cage, APARNA 505 [place] [address] documented as of this encounter Visit Diagnoses Not on filedocumented in this encounter Additional Health Concerns Assessment Noted Time PHQ-9 Depression Total Score: 0 02/27/20 3:09 PM EDT documented as of this encounter Care Teams Fulfillment Representative Relationship Specialty Start Date End Date Mely Vasquez MD [address] [place] [phone] PCP - General Family Medicine 05/11/21 documented as of this encounter
--- OUTSIDE RECORDS SUMMARY | 2024-10-27 15:52 | XMS_ITS | Encounter Summary ---
Author Organization [email or web address] Address 75 [facility] 7[address] [place] [address] Care Team Providers Care Furniture Sales Consultant Name Role Phone Mely Vasquez MD Primary Care Provider [phone] Reason for Visit * Reason Onset Date Comments Appointment Request 01/31/2023 Encounter Details Date Type Department Care Team (Late Contact Info) Description 01/31/2023 Telephone [facility] MEDICINE [address] [place] [address] Mely Vasquez MD [address] [place] [address] Appointment Request Social History Tobacco Use Types [...] from pt requesting to r/s appt from [facility] on 02/04/2023 due to being out of state. Please contact pt at [phone] documented in this encounter Plan of Treatment Upcoming Encounters Date Type Department Care Team (Late Contact Info) Description 11/19/2024 11:00 AM EDT Office Visit [facility] MEDICINE 230 [place] [address] Mely Vasquez MD 230 [place] [address] 01/06/2025 3:15 PM EDT Clinical Support [facility] CHC MED & PEDS 505 [place] [address] Liset Cage, RN 505 [place] [address] documented as of this encounter Visit Diagnoses Not on filedocumented in this encounter Care Teams Furniture Sales Consultant Relationship Specialty Start Date End Date Mely Vasquez MD [address] [place] [phone] PCP - General Family Medicine 05/11/21 documented as of this encounter
--- OUTSIDE RECORDS SUMMARY | 2024-10-27 15:52 | XMS_ITS | Encounter Summary ---
Author Organization [employer] Address 75 [facility] 7t [place] [address] Care Team Providers Care Internet Developer Name Role Phone Mely Vasquez MD Primary Care Provider [phone] Reason for Visit * Reason Onset Date Comments Med Refill 01/28/2024 Encounter Details Date Type Department Care Team ([facility] st Contact Info) Description 01/28/2024 Telephone [facility] MEDICINE 230 [place], [place] [phone] Mely Vasquez MD 230 [place], [place] [phone] Med Refill Social History Tobacco Use Types [...] immediate release tablet To be sent to: [facility]/pharmacy #[address] [place] [address] documented in this encounter Plan of Treatment Upcoming Encounters Date Type Department Care Team (Late st Contact Info) Description 11/19/2024 11:00 AM EDT Office Visit [facility] MEDICINE [address] [place] [phone] Mely Vasquez MD 230 [place] [address] 01/06/2025 3:15 PM EDT Clinical Support [facility] CHC MED & PEDS 505 [place] [address] Liset Cage, APARNA 505 [place] [address] documented as of this encounter Visit Diagnoses Not on filedocumented in this encounter Additional Health Concerns Assessment Noted Time PHQ-9 Depression Total Score: 0 02/27/20 23 3:09 PM EDT documented as of this encounter Care Teams Internet Developer Relationship Specialty Start Date End Date Mely Vasquez MD [address] [place] [address], [place] [address] PCP - General Family Medicine 05/11/21 documented as of this encounter
--- OUTSIDE RECORDS SUMMARY | 2024-10-27 15:52 | XMS_ITS | Clinical Summary ---
Author Organization [employer] Address 75 [facility] 7t [place] [address] Care Team Providers Care Pellet Preparation Operator Name Role Phone Mely Vasquez MD Primary Care Provider [phone] Allergies Active Allergy Reactions Criticality Noted Date [...] Do not swallow. 1 each 5 09/20/19 Active Blood Pressure kit 1 each 2 times daily. 1 kit 11/13/19 24 2024 Active acetaminophen (Tylenol) 500 MG tablet Take 2 tablets (1,000 mg) by mouth every 6 (six) hours if needed for moderate pain or fever for up to 25 doses. 50 tablet 02/05/20 Active tamsulosin (Flomax) 0.4 MG 24 hr capsule Take 0.4 mg by mouth Once per day. 01/23/20 Active cetirizine (ZyrTEC) 10 MG tabletIndicati ons:Chronic rhinosinusitis ,Chronic sinusitis, unspecified location TAKE 1 TABLET BY MOUTH EVERY MORNING 90 tablet 1 04/27/20 Active Nicotine (Nicotrol NS) 10 MG/ML solution SPRAY ONCE IN EACH NOSTRIL UP TO 5 TIMES PER HOUR, NOT TO EXCEED 40 TIMES A DAY 40 mL 3 04/27/20 Active valACYclovir (Valtrex) 500 MG tabletIndicati ons:HSV [...] to 28 days. Do not start before October 22, 2024. 84 tablet 10/23/19 25 2024 Active oxyCODONE (Roxicodone) 15 MG immediate release tabletIndicati ons:Lumbar disc disease Take 1 tablet (15 mg) by mouth every 8 (eight) hours if needed (pain) for up to 28 days. 84 tablet 09/24/19 25 2024 Discontinued(R eorder (will not trigger notification to Pharmacy)) Active Problems Problem Noted Date Diagnosed Date Long-term current use of opiate analgesic 2024 Inguinal hernia 04/10/2024 Assessment & Plan (08/09/2024 [...] 3:19 PM EST): - seen by urologist, [facility] - patient states he was prescribed tamsulosin for a short-term only. Will check the treatment plan - tamsulosin will help his BP as well Assessment & Plan (04/10/2024 6:39 AM EDT): - seen by urologist, [facility] - patient states he was prescribed tamsulosin [...] enucleation - evaluated by ocular specialist and encoding clerk - treatment will not be covered by [...] ENT - consider evaluation by allergy / adoption specialist for allergy test / immunotherapy. Assessment & Plan (12/27/2022 12:16 PM EDT): - continue montelukast - restart cetirizine - consider cardiac rehabilitation specialist for allergy testing / immunotherapy Chronic [...] Assessment & Plan (02/27/2023 6:34 AM EDT): -[facility] provider: N -Psychiatrist: Dr. Chavarria -Clinician: Previously Elyssa Serrano, [...] higher dose - continue following with current [facility] provider Assessment & Plan (12/18/2022 2:48 PM EDT): -[facility] provider: [facility] -Psychiatrist: Dr. Chavarria -Clinician: Previously Elyssa Serrano, but pt does not have one currently -Evaluated by Nicko from [facility] -Pt has an upcoming appt with Dr. [...] (08/09/2024 10:38 AM EST): - Followed by [facility] GI, last seen in May 2024, upcoming follow up appointment in Jul 2024 - EGD in Feb 2024, small hiatal hernia and minimal gastritis - Continue Omeprazole 20mg BID - work on smoking cessation - avoid NSAIDs - H. Pylori test was negative in October 2023 Assessment & Plan (04/07/2024 2:23 PM EDT): - Followed by [facility] GI, last seen in November 2023 - Continue Omeprazole 20mg BID - work on smoking cessation - avoid NSAIDs - H. Pylori test was negative in October 2023 Assessment & Plan (12/24/2023 4:41 PM EDT): - Followed by [facility], last seen in November 2023 - Continue Omeprazole 20mg BID - work on smoking cessation - avoid NSAIDs - H. Pylori test was negative in October 2023 Assessment & Plan (08/25/2023 4:45 PM EST): - Followed by [facility], last seen in Jun 2023 - Continue Omeprazole 20mg BID - work on smoking cessation - avoid NSAIDs Assessment & Plan (12/18/2022 2:52 PM EDT): Seen by GI, NOVEMBER 2022 -Rx Omeprazole 20mg BID -cont current tx plan -work on smoking cessation -avoid NSAIDs Blurry vision, right eye 12/18/2022 Assessment & Plan (08/25/2023 4:55 PM EST): - seen by encoding clerk in Mar 2023 - dry eye - [...] stimulator removed on 09/26/[address] Beasley ([facility]). It was placed 7-8 years ago in [place]. -MRI in Feb 2023 showed: 1. Stable [...] post-laminectomy syndrome. -Continue judicious use of oxycodone -LOGISTICS LEAD agreement is up to date - Follow up in 3-4 mo or sooner prn Assessment & Plan (02/27/2023 6:20 AM EDT): - on chronic opioid treatment with oxycodone 15 mg q8 hours since 07/17/2017. - Nerve stimulator removed on 09/26/[address] Beasley ([facility]). It was placed 7-8 years ago in [place]. - MRI on 03/01/21 showed: --Postoperative findings [...] of arachnoiditis. -Continue judicious use of oxycodone -LOGISTICS LEAD agreement is up to date - Follow up in 3 mo or sooner prn - recent exacerbation in pain; adding celecoxib for short-term Assessment & Plan (12/18/2022 2:40 PM EDT): -He's on chronic opioid of oxycodone 15 mg q8 hours since 07/17/2017. -Nerve stimulator removed on 09/26/[address] Beasley ([facility]). It was placed 7-8 years ago in [place]. -MRI scheduled and completed, 03/01/21. ~MRI findings [...] of arachnoiditis. -Continue judicious use of oxycodone -LOGISTICS LEAD agreement review is up to date Vitamin [...] (12/24/2023 4:39 PM EDT): - following with [facility], last seen on 12/18/23 - plan to evaluate with EGD and abdominal US - continue omeprazole and sucralfate Colon cancer screening 12/19/202308/09 Acute upper respiratory infection 12/13/2022 02/26/2023 Encounters Date Type Department Care Team Description 10/21/2024 Refill [facility] MED & PEDS [address] [place] [address] Liset Cage, APARNA Lumbar disc disease 10/21/2024 Telephone [facility] MEDICINE [address] [place], [place] [phone] Mely Vasquez MD Med Refill 10/02/2024 Orders Only [facility] ADULT DENTAL [address] [place] [address] Dylan Christiansen DMD 10/02/2024 Telephone [facility] ADULT DENTAL [address] [place] [address] Luke Chacko DDS 09/28/2024 1:30 PM EST Telemedicine [facility] CHC MED & PEDS [address] [facility] [place] [address] Liset Cage RN Long-term current use of opiate analgesic 09/28/2024 Travel 09/24/2024 Refill [facility] MEDICINE [address] [place] [address] Mely Vasquez MD Lumbar disc disease 09/09/2024 3:30 PM EST Clinical Support [facility] [address] [facility] [place] [phone] Elisa Buitrago, APARNA Hypertension, unspecified type 09/09/2024 Travel 09/08/2024 Telephone [facility] [address] [place] [address] Mely Vasquez MD FYI 08/27/2024 Refill [facility] MEDICINE [address] [place], [place] [phone] Mely Vasquez MD Lumbar disc disease 08/19/2024 Orders Only GENERIC EXTERNAL DATA DEPARTMENT Provider, Generic External Data 08/03/2024 3:00 PM EST Office Visit [facility] [address] [place] [address] Mely Vasquez MD Bilateral inguinal hernia without [...] disease; Herpes simplex 08/03/2024 Travel 08/03/2024 Refill [facility] MED[facility] [address] [facility] [place] [phone] Mely Vasquez MD Lumbar disc disease 07/31/2024 Telephone [facility] [address] [place] [address] China Carrasquillo [place] chart prep from Last 3 Months Immunizations Name Administration [...] Sign Reading Time Taken Comments Blood Pressure 134/80 09/09/2024 3:35 PM EST Pulse 69 09/09/2024 3:35 PM EST Temperature 36.7 ??C (98.1 ??F) 09/09/2024 3:35 PM ES T Respiratory Rate 16 09/09/2024 3:35 PM EST Oxygen Saturation 100% 09/09/2024 3:35 PM EST Inhaled Oxygen Concentration - - Weight 58.6 kg (129 lb 3.2 oz) 08/03/2024 3:07 P M EST Height 157.5 cm (5' 2 ) 08/03/2024 3:07 PM EST Body Mass Index 23.63 08/03/2024 3:07 PM EST Plan of Treatment Upcoming Encounters Date Type Department Care Team (Late st Contact Info) Description 11/19/2024 11:00 AM EDT Office Visit [facility] MEDICINE [address] [place], [place] [phone] Mely Vasquez MD 230 [place], [place] [phone] 01/06/2025 3:15 PM EDT Clinical Support [facility] CHC MED & PEDS 505 [place] [address] Liset Cage, RN [address] [place] [address] Health Maintenance Due Date Last Done Comments [...] blood pressure reading HM COLONOSCOPY Routine 10/09/2022 SERGE HISTORICAL HIV AB/AG Routine 04/27/2022 2:42 PM EDT from Last 3 Months or Most Recently Relevant to Health Maintenance Results * CBC auto differential (08/19/2024 3:16 PM EST) White Blood Count 10.5 4.8 - 10.8 X10*3/uL [facility] Red Blood Count 4.81 4.60 - 5.80 X10*6/uL [facility] Hemoglobin 14.7 14.0 - 18.0 g/dl [facility] Hematocrit 43.7 42.0 - 52.0 % [facility] Mean Corpuscular Volume 90.9 80.0 - 98.0 fL [facility] Mean Corpuscular Hemoglobin 30.6 27.0 - 33.0 pg [facility] Mean Corpuscular HGB Conc 33.6 31.0 - 36.0 g/dl [facility] Red Cell Distribution Width 13.3 11.0 - 16.0 % [facility] Platelet Count 301 160 - 400 X10*3/uL [facility] Mean Platelet Volume 11.0 9.4 - 12.4 fL [facility] Neutrophils Percent Auto 66.5 45 - 73 % [facility] Imm Gran Pct Auto 0.3 0.0 - 0.4 % [facility] Lymphocytes Percent Auto 27.2 20 - 40 % [facility] Monocytes Percent Auto 4.2 2 - 11 % [facility] Eosinophils Percent Auto 1.0 0 - 4 % [facility] Basophils Percent Auto 0.8 0 - 2 % [facility] NRBC Pct Auto 0.0 0.0 - 0.2 /100WBC [facility] Neutrophils Absolute Auto 7.0 2.0 - 8.3 x10*3/uL [facility] Imm Gran Abs Auto 0.03 0.00 - 0.03 X10*3/uL [facility] Lymphocytes Absolute Auto 2.9 1.2 - 4.9 X10*3/uL [facility] Monocytes Absolute Auto 0.4 0.1 - 1.2 X10*3/uL [facility] Eosinophils Absolute Auto 0.1 0.0 - 0.4 X10*3/uL [facility] Basophils Absolute Auto 0.1 0.0 - 0.2 X10*3/uL [facility] NRBC Abs Auto 0.000 0.0 - 0.012 X10*3/uL [facility] 08/19/2024 3:16 PM EST 08/19/2024 3:16 PM EST us Generic External Data Provider LAB BLOOD ORDERAB LES Final Result [facility] [address] [place] [phone] * Testosterone, Free (Dialysis) And Total, MS (08/19/2024 3:16 PM EST) Testosterone, Total 520 250 - 1100 ng/dL [facility] Comment:For additional infor shanon, please refer tohttp://education.Use It Better/faq/WdalbTykmqwdbtzizSMDEJOUNB681(This link is being provided for informational/educational purposes only.)This test was developed and its analytical performancecharacteristics have been determined by [employer] [place], [place]. It hasnot been cleared or approved by the U.S. Food and DrugAdministration. This assay has been validated pursuantto the CLIA regulations and is used for clinicalpurposes. Testosterone, Free 67.6 35.0 - 155.0 pg/mL [facility] Comment:This test was develo ped and its analytical performancecharacteristics have been determined by [employer] [place]. It hasnot been cleared or approved by the U.S. Food and DrugAdministration. This assay has been validated pursuantto the CLIA regulations and is used for clinicalpurposes.THIS TEST WAS PERFORMED AT:[employer] [id number] [place] [id number] PANTOJA MD,PHD 08/19/2024 3:16 PM EST 08/19/2024 3:16 PM EST Generic External Data Provider LAB BLOOD ORDERAB LES Final Result Performing Organization Address [facility] Co de Phone Number [facility] [address] [place] [phone] * Hemoglobin A1c (08/19/2024 3:16 PM EST) Hemoglobin A1c 5.1 <6.0 % [facility] Comment:Hemoglobin A1C Refer ence Range Adults: 4.8 - 6.0 % Non diabetic: < 6.0 % Goal: < 7.0 %Additional Action Suggested: > 8.0 %Note: Hemoglobin A1c results are invalid for patients with abnormal amounts of HbF. Blood transfusions may impact the HbA1c concentration in the patient sample. Estimated Average Glucose 100 mg/dL [facility] Comment:eAG = Estimated ave rage glucose which is %A1C expressed asaverage glucose, using the formula of the D4L-AyhwpqzTeflmkk Glucose study (ADAG), Diabetes Care, Vol.31,#8,Feb. 2007 08/19/2024 3:16 PM EST 08/19/2024 3:16 PM EST us Generic External Data Provider LAB BLOOD ORDERAB LES Final Result Performing Organization Address [facility] Co de Phone Number [facility] [address] [place] [phone] * (ABNORMAL) Lipid Panel with Reflex to Direct LDL (08/27/2023 2:28 PM EST) Triglycerides 177(H) <150 mg/dL [facility] Comment:Desirable Triglyceri de: less than 150 mg/dLBorderline High Triglyceride 150-199 mg/dLHigh Triglyceride: 200-499 mg/dLVery High Triglyceride: greater than or equal to 5OO mg/dL Cholesterol 162 <200 mg/dL [facility] Comment:Desirable Cholestero l: less than 200 mg/dLBorderline High Cholesterol: 200-239 mg/dLHigh Cholesterol: greater than 239 mg/dL LDL Cholesterol Calculated 94 <100 mg/dL [facility] Comment:Desirable LDL: less than 100 mg/dLNear Optimal/Above Optimal LDL: 110- 129 mg/dLBorderline High LDL: 130-159 mg/dLHigh LDL: 160-189 mg/dLVery High LDL: greater than or equal to 190 mg/dL HDL Cholesterol 33(L) >40 mg/dL [facility] Comment:Desirable HDL: great er than 40 mg/dL Note: This HDL assay may give artificially low results in patients with liver disease. Blood 08/27/2023 2:28 PM EST 08/27/2023 4:05 PM EST us Mely Vsaquez MD LAB BLOOD ORDERABLES Final Resul t [facility] [address] [place] [phone] * Hm Colonoscopy (10/09/2022) Colonoscopy Normal Normal Historical Provider HEALTH MAINTENANCE Edited Result - Final * HIV AB/AG (04/27/2022 2:42 PM EDT) HIV AB/AG Nonreactive Nonreactive [facility] Comment: HIV-1 p24 Ag and/or HIV-1/HIV-2 [...] detection of this assay. ?? The [employer] Operator HIV Ag/Ab Combo assay result and supplemental assay results should be interpreted in conjunction with the patient's clinical presentation, history and other laboratory results. ??If the results are inconsistent with clinical evidence, additional testing is suggested to confirm the result. Hepatitis B Surface Antibody NONREACTIVE Nonreactive [facility] Comment:Nonreactive: < 8.00 mIU/mL 04/27/2022 2:42 PM EDT Mely Vasquez MD HISTORICAL/NON ORDERABLE LABS Fi nal Result [facility] from Last 3 Months or Most Recently Relevant to Health Maintenance Insurance [facility] STANDARD UHC MEDICARE ADVANTAGE DENTAL-[facility] MEDICAID STAND ADULT DENTAL - [facility] PPO Care Teams Pellet Preparation Operator Relationship Specialty Start Date End Date Mely Vasquez MD [address] [place] [phone] PCP - General Family Medicine 05/11/21
--- OUTSIDE RECORDS SUMMARY | 2024-10-27 15:52 | XMS_ITS | Encounter Summary ---
Author Organization [employer] Address 75 [facility] 7t [place] [address] Care Team Providers Care Aquacultural Worker Supervisor Name Role Phone Mely Vasquez MD Primary Care Provider [phone] Reason for Visit * Reason Onset Date Comments Med Refill 01/01/2024 Encounter Details Date Type Department Care Team ([facility] st Contact Info) Description 01/01/2024 Telephone [facility] MEDICINE 230 [place], [place] [phone] Mely Vasquez MD 230 [place], [place] [phone] Med Refill Social History Tobacco Use Types [...] immediate release tablet To be sent to: [facility]/pharmacy #[id number] [place] [address] documented in this encounter Plan of Treatment Upcoming Encounters Date Type Department Care Team (Late st Contact Info) Description 11/19/2024 11:00 AM EDT Office Visit [facility] MEDICINE [address] [place] [phone] Mely Vasquez MD 230 [place] [address] 01/06/2025 3:15 PM EDT Clinical Support [facility] MED & PEDS 505 [place] [address] Liset Cage, APARNA 505 [place] [address] documented as of this encounter Visit Diagnoses Not on filedocumented in this encounter Additional Health Concerns Assessment Noted Time PHQ-9 Depression Total Score: 0 02/27/20 23 3:09 PM EDT documented as of this encounter Care Teams Aquacultural Worker Supervisor Relationship Specialty Start Date End Date Mely Vasquez MD [address] [place] [address], [place] [address] PCP - General Family Medicine 05/11/21 documented as of this encounter
--- OUTSIDE RECORDS SUMMARY | 2024-10-27 15:52 | XMS_ITS | Encounter Summary ---
Author Organization [employer] Address 75 [facility] [address] 7t [place] [address] Care Team Providers Care Printed Circuit Board Pcb Draftsman Name Role Phone Mely Vasquez MD Primary Care Provider [phone] Reason for Visit * Reason Comments Med Refill Encounter Details Date Type Department Care Team ([facility] st Contact Info) Description 04/26/2024 Refill [facility] MEDICINE [address] [place], [place] [phone] Mely Vasquez MD 230 [place], [place] [phone] Chronic rhinosinusitis; Chronic sinusitis, unspecified location Social [...] Description 11/19/2024 11:00 AM EDT Office Visit [facility] MEDICINE [address] [place] [address] Mely Vasquez MD 230 [place] [address] 01/06/2025 3:15 PM EDT Clinical Support [facility] MED & PEDS 505 [place] [address] Liset Cage, APARNA 505 [place] [address] documented as of this encounter Visit Diagnoses Diagnosis Chronic rhinosinusitis Unspecified sinusitis (chronic) Chronic sinusitis, unspecified location documented in this encounter Additional Health Concerns Assessment Noted Time PHQ-9 Depression Total Score: 0 02/27/20 23 3:09 PM EDT documented as of this encounter Care Teams Printed Circuit Board Pcb Draftsman Relationship Specialty Start Date End Date Mely Vasquez MD [address] [place] [phone] PCP - General Family Medicine 05/11/21 documented as of this encounter
--- OUTSIDE RECORDS SUMMARY | 2024-10-27 15:52 | XMS_ITS | Encounter Summary ---
Author Organization [employer] Address [address] [facility] 7t [place] [address] Care Team Providers Care Media Marketing Director Name Role Phone Mely Vasquez MD Primary Care Provider [phone] Reason for Referral * Consultation (Routine) - Closed Specialty Diagnoses / Procedures Referred By Micheal mueller Referred To Contact Urology Diagnoses Benign prostatic hyperplasia, unspecified whether lower urinary tract symptoms present Mely Vasquez MD [address] [place] [address] Phone: tel: fax: [facility] Referral ID Status Reason Start Date Expiration Date V isits Requested Visits Authorized [id number] Closed Specialty Services Required 11/22/2023 11/21/2024 1 1 Encounter Details Date Type Department Care Team ([facility] st Contact Info) Description 11/22/2023 Orders Only [facility] [address] [place] [address] [phone] Mely Vasquez MD [address] [place] [address] [phone] Benign prostatic hyperplasia, unspecified whether lower urinary [...] Description 11/19/2024 11:00 AM EDT Office Visit [facility] [address] [place] [address] Mely Vasquez MD [address] [place] [address] 01/06/2025 3:15 PM EDT Clinical Support [facility] [address] [place] [address] Liset Cage, APARNA [address] [place] [address] Scheduled Referrals Name Type Priority Associated Diagnoses [...] Testosterone, Total 522 250 - 1100 ng/dL [facility] Comment:For additional infor shanon, please refer [email or web address]/faq/[email or web address](This link is being provided for informational/educational purposes only.)This test was developed and its analytical performancecharacteristics have been determined by [employer] [place], [place]. It hasnot been cleared or approved by the U.S. Food and DrugAdministration. This assay has been validated pursuantto the CLIA regulations and is used for clinicalpurposes.THIS TEST WAS PERFORMED AT:[employer] [place] [address]SMZDACZMARYSOL PANTOJA MD,PHD Blood Venous blood specimen / Unknown 12/02/2023 1:02 PM EDT 12/02/2023 4:10 PM EDT us Mely Vasquez MD LAB BLOOD ORDERABLES Final Resul t [facility] [address] [place] [address] [phone] * PSA,Total (12/02/2023 1:02 PM EDT) Prostate Specific Antigen 0.50 <0.05 - 4.0 ng/mL [facility] Comment:PSA methodology: Jennifer Dupree i ChemiluminescentMicroparticle Immunoassay (CMIA) Blood Venous blood specimen / Unknown 12/02/2023 1:02 PM EDT 12/02/2023 4:10 PM EDT us Mely Vasquez MD LAB BLOOD ORDERABLES Final Resul t [facility] [address] [place] [phone] documented in this encounter Visit Diagnoses Diagnosis Benign prostatic hyperplasia, unspecified whether lower urinary tract symptoms present- Primary documented in this encounter Additional Health Concerns Assessment Noted Time PHQ-9 Depression Total Score: 0 02/27/20 23 3:09 PM EDT documented as of this encounter Care Teams Media Marketing Director Relationship Specialty Start Date End Date Mely Vasquez MD [address] [place] [phone] PCP - General Family Medicine 05/11/21 documented as of this encounter
== END 2024-10-27 13:28 | disposition home or self-care (01) ==
LOC: HO.US 13:27
PROVIDERS: PCP Family Medicine; Visit Provider Urology
DX: R35.0 Frequency of micturition (principal)
CPT/HCPCS: 76770

== ENCOUNTER → 2024-10-27 13:30 | Outpatient (BNV) | payer MEDICARE, MEDICAID, SELFPAY | PROVIDERS: PCP Family Medicine; Visit Provider Radiology Diagnostic Radiology | DX: R35.0 Frequency of micturition (principal) | CPT/HCPCS: 76770 ==

== ENCOUNTER 2024-11-07 16:36 | Emergency (ER) | payer MEDICARE, MEDICAID, SELFPAY ==
--- NOTE | ~2024-11-07 | XR_ITS ---
CLINICAL HISTORY: right sided low back pain s p heavy lifting Three views of the lumbar spine. COMPARISON: None FINDINGS: Five veh-tpz-zespwja lumbar type vertebral bodies. Posterior spinal fixation hardware bridges the L5-S1 levels. No evidence of hardware loosening or failure. Vertebral body heights are maintained. No evidence of acute vertebral body injury. Mild loss of disc space height at L5-S1. Remaining vertebral body disc space heights are maintained. Mild facet joint arthrosis in the lower lumbar spine. Visualized portions of the bones of the pelvis appear intact. Pelvic phleboliths present. IMPRESSION: 1. No radiographic evidence of acute injury to the lumbar spine. 2. Anatomic alignment of posteriorly fixated L5-S1 levels without evidence of hardware complication. 3. Mild lower lumbar spondylosis. This document has been electronically signed by: Derek Edouard MD on 11/07/2024 18:05:44
[2024-11-07 16:43] VITALS: BP 137/85; BP 152/118; PULSE 66; PULSE 71; RESP 18; TEMP 37.1; O2SAT 99; BMI 24.6
--- NOTE | 2024-11-07 16:58 | ED.BACK ---
HPI - Back Pain/Injury General Chief Complaint: Back Pain/Injury Stated Complaint: Hurt back lifting something heavy Time Seen by Provider: 11/07/24 16:58 Source: patient, EMS and translator interpreter (telugu) Mode of arrival: EMS Limitations: language barrier (telugu) History of Present Illness ED Provider: VIOLETA KOLB PA-C HPI Narrative: 48 year old male with past medical history significant for GERD, depression, anxiety, and asthma presents to the ED today via EMS from home for evaluation of right-sided low back pain x 24 hours. Reports helping his wsrbkh-xe-mzg move out of her home on (2 days ago). During this time he was lifting heavy boxes and moving furniture around. The following morning, yesterday, he woke up with pain to his right low back. Pain is radiating down his buttock and into his right thigh. Pain is worse with movement. Reports difficulty ambulating due to pain. Normal bowel movements. Admits to previous lumbar surgery in 2007. Denies IV drug use. Denies numbness/tingling/weakness of the lower extremities, bowel or bladder incontinence or retention, saddle anesthesia. No urinary symptoms. Denies testicular/ scrotal pain. diplomatic interpreter utilized throughout visit to communicate with patient. Related Data Home Medications ?Medication ?Instructions ?Recorded ?Confirmed albuterol sulfate 90 mcg/actuation 2 puff inhalation Q4-6H PRN 12/04/21 08/31/24 aerosol inhaler wheezing alprazolam 0.5 mg tablet 0.5 mg PO DAILY PRN anxiety 12/04/21 08/31/24 cetirizine 10 mg tablet 10 mg PO QAM 12/27/22 08/31/24 cholecalciferol (vitamin D3) 50 50 mcg PO DAILY 12/27/22 08/31/24 mcg (2,000 unit) capsule valacyclovir 500 mg tablet 500 mg PO DAILY 12/27/22 08/31/24 acetaminophen 500 mg tablet 500 mg PO Q6H PRN Pain, Mild 04/24/24 08/31/24 oxycodone 15 mg tablet 15 mg PO TID PRN 06/03/24 08/31/24 sennosides 8.6 mg tablet (senna) 17.2 mg PO BEDTIME PRN constipation 06/03/24 08/31/24 Previous Rx's ?Medication ?Instructions ?Recorded omeprazole 40 mg capsule,delayed 40 mg PO BID 30 days #60 caps 06/03/24 release testosterone 2 pump topical DAILY 30 days #75 08/31/24 grams lidocaine 5 % topical patch 1 patch topical DAILY #15 ea 11/07/24 (Lidoderm) methocarbamol 750 mg tablet 750 mg PO Q8H #6 tabs 11/07/24 Allergies Allergy/AdvReac Type Severity Reaction Status Date / Time amitriptyline Allergy Severe Confusion Verified 11/07/24 16:46 morphine [MORPHINE] Allergy Severe CONSTIPATION, Verified 11/07/24 16:46 stomach upset ibuprofen [From MOTRIN] AdvReac Intermediate ABD PAIN Verified 11/07/24 16:46 cyclobenzaprine AdvReac Mild DRY MOUTH Verified 11/07/24 16:46 [From FLEXERIL] influenza H1N1 Allergy Intermediate Weakness Uncoded 08/31/24 14:29 Review of Systems Review of Systems: Yes all other systems are reviewed and are negative PMFSH Past Medical History Attestation statement: The following information was validated with the patient. Source: old records reviewed and nursing notes reviewed Medical History Left inguinal hernia (04/26/24) Left groin hernia Screening PSA (prostate specific antigen) Rib pain on left side Constipation GERD (gastroesophageal reflux disease) Depression with anxiety Asthma Colon cancer screening Pelvis, multiple open fractures with disruption of pelvic cahuilla Failed spinal cord stimulator Surgical History History of esophagogastroduodenoscopy (EGD) H/O colonoscopy History of arthroscopy of right knee History of back surgery H/O pelvic surgery H/O enucleation of left eyeball Social History Social History Are you a primary human services care specialist to a significant other at home: No Do you presently have visiting nurse or other home services: No Alcohol intake: never Patient Tobacco Use Status: Current everyday Tobacco user Tobacco use type: Cigarette Cigarettes Per Day: 10 Advance Directives: No Advance Directives Information Provided: No Physical Exam Vital Signs: Vital Signs: Last Vital Signs Temp 98.3 F 11/07/24 19:27 Pulse 68 11/07/24 19:27 Resp 20 11/07/24 19:27 BP 124/87 11/07/24 19:27 Pulse Ox 99 11/07/24 19:27 O2 Del Method Room Air 11/07/24 19:27 BMI result Body Mass Index 24.6 Vital signs stable, afebrile General: Well appearing, in no acute distress. Skin: Warm, dry, intact. No rashes or lesions. Head: Normocephalic, atraumatic. EENT: Hearing is intact b/l. Conjunctiva clear. PERRLA. EOM intact. Moist mucous membranes.? Neck: Supple without LAD Cardiac: Chest wall symmetric. RRR Lungs: Normal respiratory effort without accessory muscle use. CTA bilaterally. Abdomen: Soft, non-tender, non-distended. No rebound tenderness or guarding. Positive BS x4. no cvat. no palpable inguinal hernia. Back: +no midline spinous tenderness or step-off deformity. tender to palpation over right lumbar paraspinal musculature extending into right hip. No palpable deformity or fluctuance. Full ROM intact to right hip. Positive straight leg raise on right. Ext: Upper and lower extremities atraumatic, without tenderness, deformity, swelling or erythema. moving all extremities. no shortening or rotation noted to left LE. Neuro: AOx3. Normal speech. Strength 5/5 intact throughout. No saddle anesthesia. Sensation intact to light touch. NV intact distally. ambulating with steady gait. Course Course Course Narrative: X-ray lumbar spine without evidence of fracture. Anatomic alignment of posteriorly fixated L5/S1 levels without evidence of hardware complication. Mild lower lumbar spondylosis. > on re-evaluation, patient reports improvement with toradol, methocarbamol and lidocaine patch. concern for strain v spasm secondary to recent heavy lifting. unlikely hernia as exam is benign. patient has ambulated w/ steady gait to bathroom. after discussion w/ patient, he feels stable for d/c home. states his family member will be driving him home today. Patient has remained stable throughout ED visit today. Discussed worrisome signs and symptoms and when to return to the ED. All questions answered at this time. Patient is agreeable with disposition and stable for discharge. Medications Administered Discontinued Medications Generic Name Dose Route Start Last Admin Trade Name Freq PRN Reason Stop Dose Admin Ketorolac Tromethamine 30 mg 11/07/24 17:15 11/07/24 18:08 Ketorolac Tromethamine 30 Mg/Ml Vial IM 11/07/24 17:16 30 mg ONCE ONE Administration Lidocaine 1 patch 11/07/24 17:15 11/07/24 18:09 Lidocaine 4 % Patch Adh..Patch TRANSDERMA 11/07/24 17:16 1 patch ONCE ONE Administration Protocol Methocarbamol 750 mg 11/07/24 17:15 11/07/24 18:06 Methocarbamol 750 Mg Tablet PO 11/07/24 17:16 750 mg ONCE ONE Administration Medical Decision Making Medical Decision Making MDM Narrative: 48 year old male with past medical history significant for GERD, depression, anxiety, and asthma presents to the ED today via EMS from home for evaluation of right-sided low back pain x 24 hours. Vital signs stable, afebrile. He is nontoxic-appearing and in no acute distress. on exam, no midline spinous tenderness or step-off deformity. tender to palpation over right lumbar paraspinal musculature extending into right hip. No palpable deformity or fluctuance. Full ROM intact to right hip. Positive straight leg raise on right. no inguinal hernia. no cvat. Differential diagnosis includes MSK sprain/strain, contusion, lumbar spasm, arthritis, sciatica. Lower suspicion for fracture, hardware malfunction. Unlikely cauda equina, cord compression, epidural abscess, Guillain-[place]. Plan for x-rays, pain control and re-evaluation. Differential Diagnosis Differential Diagnoses: The differential diagnosis associated with the presentation includes as above. Admission/Observation not indicated. Independent Interpretation I performed an independent interpretation of an: Plain X-Ray Interpretation: xr lumbar spine without fracture Radiology Impression Discussion of test interpretation with radiology: I have reviewed the radiologist's reading. Radiologist Impression: Procedure(s): XR lumbar spine 2-3V Accession Number(s): [id number] cc: Robi Villarreal RN; Violeta Kolb~ CLINICAL HISTORY: right sided low back pain s p heavy lifting Three views of the lumbar spine. COMPARISON: None FINDINGS: Five kkn-wvq-qrkiyeg lumbar type vertebral bodies. Posterior spinal fixation hardware bridges the L5-S1 levels. No evidence of hardware loosening or failure. Vertebral body heights are maintained. No evidence of acute vertebral body injury. Mild loss of disc space height at L5-S1. Remaining vertebral body disc space heights are maintained. Mild facet joint arthrosis in the lower lumbar spine. Visualized portions of the bones of the pelvis appear intact. Pelvic phleboliths present. IMPRESSION: 1. No radiographic evidence of acute injury to the lumbar spine. 2. Anatomic alignment of posteriorly fixated L5-S1 levels without evidence of hardware complication. 3. Mild lower lumbar spondylosis. Independent Historian Clinical information obtained from an independent historian. History obtained from or confirmed by: EMS External Record Review External record reviewed: Inpatient record Prescription Management I considered prescription management with: Pain Medication Social Determinants Patient?s care significantly limited by Social Determinants of Health including: Other Social Determinant of Health Critical Care Time Critical Care Time Critical Care Time: No Discharge Plan Discharge Clinical Impression: Lumbar strain Patient Disposition: Home, Self-Care Instructions: Low Back Strain (ED), Lower Back Exercises (ED) Additional Instructions: You were evaluated in the Emergency Department today for your back pain.? Your evaluation did not show signs of medical conditions requiring emergent intervention at this time. Avoid bending, lifting, or twisting. Use ice several times per day for 20 minutes at a time for the next 48 hours and then change to heat. I recommend you take 600mg ibuprofen every 6 hours or Tylenol 650mg every 6 hours as needed for pain. If needed, you can alternate these medications so that you take one medication every 3 hours. For example, at noon take ibuprofen, then at 3pm take Tylneol, then at 6pm take ibuprofen. Methocarbamol is a muscle relaxer. Take this at night as it makes you drowsy. Do not drive, drink alcohol, or operate machinery while taking it. Lidoderm patches are numbing patches. Apply to painful areas. Please schedule an appointment for follow-up with your primary care provider this week for further evaluation of your symptoms. Return to the Emergency Department if you experience worsening back pain, difficulty walking, fevers, numbness, tingling, incontinence, or any other concerning symptoms. In the case of an emergency call 911. Prescriptions: New methocarbamol 750 mg tablet 750 mg PO Q8H Qty: 6 0RF lidocaine [Lidoderm] 5 % adhesive patch,medicated 1 patch topical DAILY Qty: 15 0RF Rx Instructions: leave on most painful area for up to 12 hrs No Action acetaminophen 500 mg Tablet 500 mg PO Q6H PRN (Reason: Pain, Mild) alprazolam 0.5 mg tablet 0.5 mg PO DAILY PRN (Reason: anxiety) albuterol sulfate 90 mcg/actuation HFA aerosol inhaler 2 puff inhalation Q4-6H PRN (Reason: wheezing) cetirizine 10 mg tablet 10 mg PO QAM valacyclovir 500 mg tablet 500 mg PO DAILY cholecalciferol (vitamin D3) 50 mcg (2,000 unit) capsule 50 mcg PO DAILY sennosides [senna] 8.6 mg tablet 17.2 mg PO BEDTIME PRN (Reason: constipation) oxycodone 15 mg tablet 15 mg PO TID PRN omeprazole 40 mg capsule,delayed release(DR/EC) 40 mg PO BID 30 Days Qty: 60 6RF testosterone 20.25 mg/1.25 gram (1.62 %) gel in metered-dose pump 2 pump topical DAILY 30 Days Qty: 75 3RF Referrals: Robi Villarreal RN [Primary Care Provider] - Interventions: ED Discharge Assessment Last Done: 11/07/24 19:27 Discharge Date/Time: 11/07/24 19:27 Print Language: Maltese
--- OUTSIDE RECORDS SUMMARY | 2024-11-07 17:19 | XMS_ITS | Clinical Summary ---
Author Organization [employer] [facility] ity Address [address] [place] [address] Care Team Providers Care Epic Prelude Analyst Name Role Phone Unavailable Primary Care Provider [...] Vaccine (2023-2 5 season) 2024 Influenza Vaccine (Season Ended) 2025 HIB Vaccines Aged Out No longer eligi [...] age to complete this topic Meningococcal B Vaccine Aged Out No l onger eligible based on patient's age to complete [...]
[2024-11-07] MEDS: methocarbamoL 750 MG TABLET PO (18:06)
[2024-11-07] MEDS: Ketorolac Tromethamine 30 MG/ML VIAL IM (18:08)
[2024-11-07] MEDS: Lidocaine 4 % Patch ADH..PATCH 1 PATCH TRANSDERMA (18:09)
[2024-11-07 18:36] VITALS: BP 124/87; PULSE 68; RESP 29; TEMP 36.8; O2SAT 99
[2024-11-07 19:27] VITALS: BP 124/87; PULSE 68; RESP 20; TEMP 36.8; O2SAT 99
== END 2024-11-07 19:27 | disposition home or self-care (01) ==
PROVIDERS: Emergency Provider Emergency Medicine Emergency Medical Services
DX: S39.012A Strain of muscle, fascia and tendon of lower back, initial encounter (principal); X50.0XXA Overexertion from strenuous movement or load, initial encounter; Y93.9 Activity, unspecified; Y92.009 Unspecified place in unspecified non-institutional (private) residence as the place of occurrence of the external cause; Y99.8 Other external cause status; Z79.899 Other long term (current) drug therapy; F17.210 Nicotine dependence, cigarettes, uncomplicated
CPT/HCPCS: 72100; 96372; 99283; 99284; J1885

== ENCOUNTER → 2024-11-07 17:15 | Outpatient (BNV) | payer MEDICARE, MEDICAID, SELFPAY | PROVIDERS: Emergency Provider Emergency Medicine Emergency Medical Services; Visit Provider Radiology Diagnostic Radiology | DX: M54.50 Low back pain, unspecified (principal) | CPT/HCPCS: 72100 ==

== ENCOUNTER 2024-12-02 17:13 | Emergency (ER) | payer MEDICARE, MEDICAID, SELFPAY ==
--- NOTE | ~2024-12-02 | CT_ITS ---
CLINICAL HISTORY: left sided abdominal pain, rectal bleeding CT abdomen and pelvis with contrast Comparison: CT of the abdomen and pelvis from 11/21/2023 Findings: Mild bibasilar atelectasis/pneumonitis with respiratory motion artifacts. Mild fat deposition of the liver. No significant change in small cystic lesions of the liver and imaged kidneys accounting for differences in artifacts. The adrenal glands are normal. The spleen is nonenlarged. Pancreas and gallbladder are unremarkable accounting for artifacts. Calcified and noncalcified plaque including the imaged aorta and its branches. Small mesenteric lymph nodes are likely reactive. No small bowel obstruction. Moderate to severe stool burden present, including the cecum. The appendix is not definitively seen. Wall thickening of the large intestine concerning for colitis, particularly involving the descending colon in the sigmoid colon given adjacent fluid and stranding. Soft tissue of the left inguinal ring is nonspecific and may reflect left testicle. Prostate gland measures 4.5 cm transverse. New moderate wall thickening of the urinary bladder is nonspecific and may reflect cystitis. No significant change in posterior instrumentation of the L5-S1. No hardware loosening by CT. Adjacent segment change including facet arthropathy. Additional facet arthropathy noted. IMPRESSION: 1. Wall thickening of the large intestine concerning for colitis, including descending colon and sigmoid colon. 2. Moderate wall thickening of the urinary bladder. This document has been electronically signed by: Craig Reich MD on 12/02/2024 20:47:48
[2024-12-02 17:25] VITALS: BP 114/72; PULSE 67; O2SAT 96
[2024-12-02 17:33] VITALS: BP 117/73; PULSE 75; RESP 20; TEMP 36.8; O2SAT 100; BMI 24.3
[2024-12-02 17:47] LABS: MANUAL DIFF FLAG NO
--- OUTSIDE RECORDS SUMMARY | 2024-12-02 17:47 | XMS_ITS | Encounter Summary ---
Author Organization [employer] Address [address] [facility] [address] [place] [address] Care Team Providers Care Massage Therapist Name Role Phone Mely Vasquez MD Primary Care Provider [phone] Reason for Visit * Reason Onset Date Comments Med Refill 04/16/2024 Encounter Details Date Type Department Care Team ([facility] st Contact Info) Description 04/16/2024 Telephone [facility] MED[facility]INE [address] [place], [place] [phone] Mely Vasquez MD [address] [place], [place] [phone] Med Refill Social History Tobacco Use Types [...] Care Team (Late st Contact Info) Description 12/29/2024 1:15 PM EDT Office Visit [facility] MED[facility] [address] [place] [address] Mely Vasquez MD [address] [place] [address] 01/06/2025 3:15 PM EDT Clinical Support [facility] [address] [place] [address] Liset Cage, APARNA [address] [place] [address] documented as of this encounter Visit Diagnoses Not on filedocumented in this encounter Additional Health Concerns Assessment Noted Time PHQ-9 Depression Total Score: 0 02/27/20 3:09 PM EDT documented as of this encounter Care Teams Massage Therapist Relationship Specialty Start Date End Date Mely Vasquez MD [address] [place] [phone] PCP - General Family Medicine 05/11/21 documented as of this encounter
--- OUTSIDE RECORDS SUMMARY | 2024-12-02 17:47 | XMS_ITS | Encounter Summary ---
Author Organization [employer] Address [address] [facility] [address] [place] [address] Care Team Providers Care Canvassing Manager Name Role Phone Mely Vasquez MD Primary Care Provider [phone] Reason for Visit * Reason Onset Date Comments Prior Auth DME 11/26/2024 Encounter Details Date Type Department Care Team ([facility] st Contact Info) Description 11/26/2024 Telephone [facility] MEDICINE [address] [place], [place] [phone] Mely Vasquez MD [address] [place], [place] [phone] Prior Auth DME Social History Tobacco Use Types Packs/Day Years [...] encounter Miscellaneous Notes * Telephone Encounter - Faith Birmingham - 11/26/2024 4:16 PM EDT Tc from pt requesting DME Shower chair [employer] If any questions contact pt at [phone] documented in this encounter Plan of Treatment Upcoming Encounters Date Type Department Care Team (Late st Contact Info) Description 12/29/2024 1:15 PM EDT Office Visit [facility] [address] [place] [address] Mely Vasquez MD [address] [place] [address] 01/06/2025 3:15 PM EDT Clinical Support [facility] [address] [place] [address] Liset Cage, APARNA [address] [place] [address] documented as of this encounter Visit Diagnoses Not on filedocumented in this encounter Additional Health Concerns Assessment Noted Time PHQ-9 Depression Total Score: 0 02/27/20 23 3:09 PM EDT documented as of this encounter Care Teams Canvassing Manager Relationship Specialty Start Date End Date Mely Vasquez MD [address] [place] [phone] PCP - General Family Medicine 05/11/21 documented as of this encounter
--- OUTSIDE RECORDS SUMMARY | 2024-12-02 17:47 | XMS_ITS | Encounter Summary ---
Author Organization [employer] Address [address] [facility] [address] 7[address] [place] [address] Care Team Providers Care Delivery Lead Name Role Phone Mely Vasquez MD Primary Care Provider [phone] Reason for Visit * Reason Onset Date Comments Med Refill 01/01/2024 Encounter Details Date Type Department Care Team ([facility] st Contact Info) Description 01/01/[address] [facility] MEDICINE [address] [place], [place] [phone] Mely Vasquez MD [address] [place], [place] [phone] Med Refill Social History Tobacco Use Types [...] immediate release tablet To be sent to: [facility]/pharmacy #[id number] [place] [address] documented in this encounter Plan of Treatment Upcoming Encounters Date Type Department Care Team (Late st Contact Info) Description 12/29/2024 1:15 PM EDT Office Visit [facility] MEDICINE [address] [place] [phone] Mely Vasquez MD [address] [place] [address] 01/06/2025 3:15 PM EDT Clinical Support [facility] [address] [place] [address] Liset Cage, APARNA [address] [place] [address] documented as of this encounter Visit Diagnoses Not on filedocumented in this encounter Additional Health Concerns Assessment Noted Time PHQ-9 Depression Total Score: 0 02/27/20 23 3:09 PM EDT documented as of this encounter Care Teams Delivery Lead Relationship Specialty Start Date End Date Mely Vasquez MD [address] [place] [phone] PCP - General Family Medicine 05/11/21 documented as of this encounter
--- OUTSIDE RECORDS SUMMARY | 2024-12-02 17:47 | XMS_ITS | Encounter Summary ---
Author Organization [employer] Address [address] [facility] [address] 7t [place] [address] Care Team Providers Care Flat Clothier Name Role Phone Meyl Vasquez MD Primary Care Provider [phone] Reason for Visit * Reason Onset Date Comments Med Refill 02/24/2024 Encounter Details Date Type Department Care Team ([facility] st Contact Info) Description 02/24/2024 Telephone [facility] [address] [place], [place] [phone] Mely Vasquez MD [address] [place], [place] [phone] Med Refill Social History Tobacco Use Types [...] sent to: [facility]/pharmacy #[id number] [place] [address] documented in this encounter Plan of Treatment Upcoming Encounters Date Type Department Care Team (Late st Contact Info) Description 12/29/2024 1:15 PM EDT Office Visit [facility] [address] [place] [address] Mely Vasquez MD 230 [place] [address] 01/06/2025 3:15 PM EDT Clinical Support [facility] [address] [place] [address] Liset Cage, RN 505 [place] [address] documented as of this encounter Visit Diagnoses Not on filedocumented in this encounter Additional Health Concerns Assessment Noted Time PHQ-9 Depression Total Score: 0 02/27/20 23 3:09 PM EDT documented as of this encounter Care Teams Flat Clothier Relationship Specialty Start Date End Date Mely Vasquez MD 230 [place] [address] PCP - General Family Medicine 05/11/21 documented as of this encounter
--- OUTSIDE RECORDS SUMMARY | 2024-12-02 17:47 | XMS_ITS | Encounter Summary ---
Author Organization [employer] Address 75 [facility] 7t [place] [address] Care Team Providers Care Adjunct Professor Of Voice Name Role Phone Mely Vasquez MD Primary Care Provider [phone] Reason for Referral * Consultation (Routine) - Closed Specialty Diagnoses / Procedures Referred By Micheal mueller Referred To Contact Urology Diagnoses Benign prostatic hyperplasia, unspecified whether lower urinary tract symptoms present Mely Vasquez MD [address] [place] [address] Phone: tel: fax: [facility] Referral ID Status Reason Start Date Expiration Date V isits Requested Visits Authorized [id number] Closed Specialty Services Required 11/22/2023 11/21/2024 1 1 Encounter Details Date Type Department Care Team (Late st Contact Info) Description 11/22/2023 Orders Only [facility] [address] [place] [address] [phone] Mely Vasquez MD [address] [place] [address] [phone] Benign prostatic hyperplasia, unspecified whether lower urinary [...] Description 12/29/2024 1:15 PM EDT Office Visit [facility] [address] [place] [address] Mely Vasquez MD 230 [place] [address] 01/06/2025 3:15 PM EDT Clinical Support [facility] [address] [place] [address] Liset Cage, APARNA 505 [place] [address] Scheduled Referrals Name Type Priority Associated Diagnoses [...] Testosterone, Total 522 250 - 1100 ng/dL [facility] Comment:For additional infor shanon, please refer tohttp://education.[employer]/faq/[email or web address](This link is being provided for informational/educational purposes only.)This test was developed and its analytical performancecharacteristics have been determined by [employer] [place], [place]. It hasnot been cleared or approved by the U.S. Food and DrugAdministration. This assay has been validated pursuantto the CLIA regulations and is used for clinicalpurposes.THIS TEST WAS PERFORMED AT:[facility] [place] [address]WCKBLEGMARYSOL PANTOJA MD,PHD Blood Venous blood specimen / Unknown 12/02/2023 1:02 PM EDT 12/02/2023 4:10 PM EDT us Mely Vasquez MD LAB BLOOD ORDERABLES Final Resul t [facility] [address] [place] [address] [phone] * PSA,Total (12/02/2023 1:02 PM EDT) Prostate Specific Antigen 0.50 <0.05 - 4.0 ng/mL [facility] Comment:PSA methodology: Jennifer Dupree i ChemiluminescentMicroparticle Immunoassay (CMIA) Blood Venous blood specimen / Unknown 12/02/2023 1:02 PM EDT 12/02/2023 4:10 PM EDT us Mely Vasquez MD LAB BLOOD ORDERABLES Final Resul t [facility] [address] [place] [phone] documented in this encounter Visit Diagnoses Diagnosis Benign prostatic hyperplasia, unspecified whether lower urinary tract symptoms present- Primary documented in this encounter Additional Health Concerns Assessment Noted Time PHQ-9 Depression Total Score: 0 02/27/20 23 3:09 PM EDT documented as of this encounter Care Teams Adjunct Professor Of Voice Relationship Specialty Start Date End Date Mely Vasquez MD [address] [place] [address] PCP - General Family Medicine 05/11/21 documented as of this encounter
--- OUTSIDE RECORDS SUMMARY | 2024-12-02 17:47 | XMS_ITS | Encounter Summary ---
Author Organization [employer] Address 75 [facility] 7t [place] [address] Care Team Providers Care Job Service Consultant Name Role Phone Mely Vasquez MD Primary Care Provider [phone] Reason for Visit * Reason Onset Date Comments Appointment Request 01/31/2023 Encounter Details Date Type Department Care Team (Late st Contact Info) Description 01/31/2023 Telephone [facility] MEDICINE [address] [place] [address] Mely Vasquez MD [address] [place] [address] Appointment Request Social History Tobacco Use Types [...] from pt requesting to r/s appt from FAMILY AND CONSUMER SCIENCES PROFESSOR on 02/04/2023 due to being out of state. Please contact pt at [phone] documented in this encounter Plan of Treatment Upcoming Encounters Date Type Department Care Team (Late st Contact Info) Description 12/29/2024 1:15 PM EDT Office Visit [facility] MED[facility]INE 230 [place] [address] Mely Vasquez MD 230 [place] [address] 01/06/2025 3:15 PM EDT Clinical Support [facility] 505 [place] [address] Liset Cage, RN 505 [place] [address] documented as of this encounter Visit Diagnoses Not on filedocumented in this encounter Care Teams Job Service Consultant Relationship Specialty Start Date End Date Mely Vasquez MD [address] [place] [address] PCP - General Family Medicine 05/11/21 documented as of this encounter
--- OUTSIDE RECORDS SUMMARY | 2024-12-02 17:47 | XMS_ITS | Encounter Summary ---
Author Organization [employer] Address [address] [facility] [address] [address] 7t [place] [address] Care Team Providers Care Coater Brake Linings Name Role Phone Mely Vasquez MD Primary Care Provider [phone] Reason for Visit * Reason Onset Date Comments Med Refill 06/09/2024 Encounter Details Date Type Department Care Team ([facility] st Contact Info) Description 06/09/[address] [facility] MEDICINE 230 [place], [place] [phone] Mely Vasquez MD [address] [place], [place] [phone] Med Refill Social History Tobacco Use Types [...] immediate release tablet To be sent to: [facility]/pharmacy #[id number] [place] [address] documented in this encounter Plan of Treatment Upcoming Encounters Date Type Department Care Team (Late st Contact Info) Description 12/29/2024 1:15 PM EDT Office Visit [facility] MEDICINE [address] [place] [address] Mely Vasquez MD [address] [place] [address] 01/06/2025 3:15 PM EDT Clinical Support [facility] 505 [place] [address] Liset Cage, APARNA 505 [place] [address] documented as of this encounter Visit Diagnoses Not on filedocumented in this encounter Additional Health Concerns Assessment Noted Time PHQ-9 Depression Total Score: 0 02/27/20 23 3:09 PM EDT documented as of this encounter Care Teams Coater Brake Linings Relationship Specialty Start Date End Date Mely Vasquez MD [address] [place] [address] PCP - General Family Medicine 05/11/21 documented as of this encounter
--- OUTSIDE RECORDS SUMMARY | 2024-12-02 17:47 | XMS_ITS | Encounter Summary ---
Author Organization [employer] Address [address] [facility] [address] 7t [place] [address] Care Team Providers Care Lumber Puller Name Role Phone Mely Vasquez MD Primary Care Provider [phone] Reason for Visit * Reason Onset Date Comments Med Refill 05/21/2023 Encounter Details Date Type Department Care Team ([facility] st Contact Info) Description 05/21/2023 Telephone [facility] MEDICINE 230 [place], [place] [phone] Mely Vasquez MD 230 [place], [place] [phone] Med Refill Social History Tobacco Use Types [...] immediate release tablet, pt stated went to [facility] and the store has 40, pt is requesting order of 44 to be send [facility]. documented in this encounter Plan of Treatment Upcoming Encounters Date Type Department Care Team (Late st Contact Info) Description 12/29/2024 1:15 PM EDT Office Visit [facility] MEDICINE [address] [place] [address] Mely Vasquez MD [address] [place] [address] 01/06/2025 3:15 PM EDT Clinical Support [facility] 505 [place] [address] Liset Cage, APARNA 505 [place] [address] documented as of this encounter Visit Diagnoses Not on filedocumented in this encounter Additional Health Concerns Assessment Noted Time PHQ-9 Depression Total Score: 0 02/27/20 23 3:09 PM EDT documented as of this encounter Care Teams Lumber Puller Relationship Specialty Start Date End Date Mely Vasquez MD [address] [place] [address], [place] [address] PCP - General Family Medicine 05/11/21 documented as of this encounter
--- OUTSIDE RECORDS SUMMARY | 2024-12-02 17:47 | XMS_ITS | Encounter Summary ---
Author Organization [employer] Address 75 [facility] 7t [place] [address] Care Team Providers Care Yarding And Folding Machine Operator Name Role Phone Mely Vasquez MD Primary Care Provider [phone] Reason for Visit * Reason Onset Date Comments Med Refill 04/22/2023 Encounter Details Date Type Department Care Team ([facility] st Contact Info) Description 04/22/2023 Telephone [facility] MED[facility]INE [address] [place] [address] Mely Vasquez MD [address] [place], [place] [phone] Med Refill Social History Tobacco Use Types [...] Miscellaneous Notes * Telephone Encounter - Kaitlynn Blake - 04/22/2023 8:32 AM EDT Tc from patient requesting a med refill for medication oxycodone [address] Vasquez documented in this encounter Plan of Treatment Upcoming Encounters Date Type Department Care Team (Late st Contact Info) Description 12/29/2024 1:15 PM EDT Office Visit [facility]INE [address] [place] [address] Mely Vasquez MD [address] [place] [address] 01/06/2025 3:15 PM EDT Clinical Support [facility] MED & PEDS 505 [place], [place] [phone] Liset Cage, APARNA 505 [place], [place] [phone] documented as of this encounter Visit Diagnoses Not on filedocumented in this encounter Additional Health Concerns Assessment Noted Time PHQ-9 Depression Total Score: 0 02/27/20 23 3:09 PM EDT documented as of this encounter Care Teams Yarding And Folding Machine Operator Relationship Specialty Start Date End Date Mely Vasquez MD [address] [place] [address] PCP - General Family Medicine 05/11/21 documented as of this encounter
--- OUTSIDE RECORDS SUMMARY | 2024-12-02 17:47 | XMS_ITS | Clinical Summary ---
Author Organization [employer] [facility] it[facility] Address [address] [place] [address] Care Team Providers Care Agricultural Education Instructor Name Role Phone Unavailable Primary Care Provider [...]
--- OUTSIDE RECORDS SUMMARY | 2024-12-02 17:47 | XMS_ITS | Encounter Summary ---
Author Organization [employer] Address [address] [facility] [address] 7[address] [place] [address] Care Team Providers Care Tie Puller Name Role Phone Mely Vasquez MD Primary Care Provider [phone] Reason for Visit * Reason Onset Date Comments Med Refill 01/02/2024 Encounter Details Date Type Department Care Team ([facility] st Contact Info) Description 01/02/2024 Telephone [facility] MEDICINE 230 [place], [place] [phone] Mely Vasquez MD [address] [place], [place] [phone] Med Refill Social History Tobacco Use Types [...] be sent to: [facility]/PHARMACY #[id number] [place] [address] documented in this encounter Plan of Treatment Upcoming Encounters Date Type Department Care Team (Late st Contact Info) Description 12/29/2024 1:15 PM EDT Office Visit [facility] MED[facility] [address] [place] [address] Mely Vasquez MD [address] [place] [address] 01/06/2025 3:15 PM EDT Clinical Support [facility] 505 [place] [address] Liset Cage, APARNA 505 [place] [address] documented as of this encounter Visit Diagnoses Not on filedocumented in this encounter Additional Health Concerns Assessment Noted Time PHQ-9 Depression Total Score: 0 02/27/20 3:09 PM EDT documented as of this encounter Care Teams Tie Puller Relationship Specialty Start Date End Date Mely Vasquez MD [address] [place] [address] PCP - General Family Medicine 05/11/21 documented as of this encounter
--- OUTSIDE RECORDS SUMMARY | 2024-12-02 17:47 | XMS_ITS | Clinical Summary ---
Author Organization [employer] Address 75 [facility] 7t [place] [address] Care Team Providers Care Critical Care Paramedic Name Role Phone Mely Vasquez MD Primary Care Provider [phone] Allergies Active Allergy Reactions Criticality Noted Date [...] 20 mg by mouth 2 times daily. 10/22/19 23 Active traZODone (Desyrel) 50 MG tablet [...] not swallow. 1 each 5 09/20/19 24 Active acetaminophen (Tylenol) 500 MG tablet Take [...] to 28 days. Do not start before November 18, 2024. 84 tablet 11/19/19 25 2024 Active Blood Pressure kit 1 each 2 times daily. 1 kit 11/13/19 24 2024 oxyCODONE (Roxicodone) 15 MG immediate release tabletIndicati ons:Lumbar disc disease Take 1 tablet (15 mg) by mouth every 8 (eight) hours if needed (pain) for up to 28 days. Do not start before October 22, 2024. 84 tablet 10/23/19 25 2024 Discontinued(R eorder (will not trigger notification to Pharmacy)) Active Problems Problem Noted Date Diagnosed Date Chronic pain of right knee 11/19/2024 Long-term current use of opiate analgesic 2024 [...] 3:19 PM EST): - seen by [facility]rolog[facility], [facility] - patient states he was prescribed tamsulosin for a short-term only. Will check the treatment plan - tamsulosin will help his BP as well Assessment & Plan (04/10/2024 6:39 AM EDT): - seen by [place]rologist, [facility] - patient states he was prescribed tamsulosin [...] enucleation - evaluated by ocular specialist and cellular tower climber - treatment will not be covered by [...] ENT - consider evaluation by allergy / consumer education specialist for allergy test / immunotherapy. Assessment & Plan (12/27/2022 12:16 PM EDT): - continue montelukast - restart cetirizine - consider transportation maintenance specialist for allergy testing / immunotherapy Chronic [...] Assessment & Plan (02/27/2023 6:34 AM EDT): -[facility] provider: Roberta -Psychiatrist: Dr. Chavarria -Clinician: Previously Elyssa Serrano, [...] higher dose - continue following with current [facility] provider Assessment & Plan (12/18/2022 2:48 PM EDT): -[facility] provider: [facility] -Psychiatrist: Dr. Chavarria -Clinician: Previously Elyssa Serrano, but pt does not have one currently -Evaluated by Nicko from [facility] -Pt has an upcoming appt with [...] (08/09/2024 10:38 AM EST): - Followed by [facility], last seen in May 2024, upcoming follow up appointment in Jul 2024 - EGD in Feb 2024, small hiatal hernia and minimal gastritis - Continue Omeprazole 20mg BID - work on smoking cessation - avoid NSAIDs - H. Pylori test was negative in October 2023 Assessment & Plan (04/07/2024 2:23 PM EDT): - Followed by [facility], last seen in November 2023 - Continue Omeprazole 20mg BID - work on smoking cessation - avoid NSAIDs - H. Pylori test was negative in October 2023 Assessment & Plan (12/24/2023 4:41 PM EDT): - Followed by [facility], last seen in November 2023 - Continue Omeprazole 20mg BID - work on smoking cessation - avoid NSAIDs - H. Pylori test was negative in October 2023 Assessment & Plan (08/25/2023 4:45 PM EST): - Followed by [facility], last seen in Jun 2023 - Continue Omeprazole 20mg BID - work on smoking cessation - avoid NSAIDs Assessment & Plan (12/18/2022 2:52 PM EDT): Seen by GI, NOVEMBER 2022 -Rx Omeprazole 20mg BID -cont current tx plan -work on smoking cessation -avoid NSAIDs Blurry vision, right eye 12/18/2022 Assessment & Plan (08/25/2023 4:55 PM EST): - seen by cellular tower climber in Mar 2023 - dry eye - [...] stimulator removed on 09/26/[address] Beasley ([facility]). It was placed 7-8 years ago in [place]. -MRI in Feb 2023 showed: 1. Stable [...] post-laminectomy syndrome. -Continue judicious use of oxycodone -STRATEGY SPECIALIST agreement is up to date - Follow up in 3-4 mo or sooner prn Assessment & Plan (02/27/2023 6:20 AM EDT): - on chronic opioid treatment with oxycodone 15 mg q8 hours since 07/17/2017. - Nerve stimulator removed on 09/26/[address] Beasley ([facility]). It was placed 7-8 years ago in [place]. - MRI on 03/01/21 showed: --Postoperative findings [...] of arachnoiditis. -Continue judicious use of oxycodone -STRATEGY SPECIALIST agreement is up to date - Follow up in 3 mo or sooner prn - recent exacerbation in pain; adding celecoxib for short-term Assessment & Plan (12/18/2022 2:40 PM EDT): -He's on chronic opioid of oxycodone 15 mg q8 hours since 07/17/2017. -Nerve stimulator removed on 09/26/[address] Beasley ([facility]). It was placed 7-8 years ago in [place]. -MRI scheduled and completed, 03/01/21. ~MRI findings [...] of arachnoiditis. -Continue judicious use of oxycodone -STRATEGY SPECIALIST agreement review is up to date Vitamin [...] (12/24/2023 4:39 PM EDT): - following with [facility], last seen on 12/18/23 - plan to evaluate with EGD and abdominal US - continue omeprazole and sucralfate Colon cancer screening 12/19/202308/09 Acute upper respiratory infection 12/13/2022 02/26/2023 Encounters Date Type Department Care Team Description 11/26/2024 Telephone [facility] MEDICINE [address] [place], [place] [phone] Mely Vasquez MD Prior Auth DME 11/19/2024 Telephone [facility] MEDICINE [address] [place], [place] [phone] Mely Vasquez MD Appointment Request 11/17/2024 Refill [facility] MED[facility]INE [address] [place] [address] Mely Vasquez MD Lumbar disc disease 11/09/2024 Telephone [facility] MEDICINE [address] [place] [address] Mely Vasquez MD chart prep 10/21/2024 Refill [facility] [address] [place] [address] Liset Cage, APARNA Lumbar disc disease 10/21/[address] [address] Mely Vasquez MD Med Refill 10/02/2024 Orders Only [facility]ULT [facility]AL [address] [place] [address] Dylan Christiansen, DMD 10/02/2024 Telephone [facility] ADULT DENTAL [address] [place] [address] Luke Chacko, DDS 09/28/2024 1:30 PM EST Telemedicine [facility] [address] [place] [address] Liset Cage, APARNA Long-term current use of opiate analgesic 09/28/2024 Travel 09/24/[address] [address] Mely Vasquez MD Lumbar disc disease 09/09/2024 3:30 PM EST Clinical Support [address] [address] Elisa Buitrago, APRANA Hypertension, unspecified type 09/09/2024 Travel 09/08/[address] [address] Mely Vasquez MD FYI from Last 3 Months Immunizations Name Administration [...] Description 12/29/2024 1:15 PM EDT Office Visit [facility] MEDICINE [address] [place] [address] Mely Vasquez MD 230 [place], [place] [phone] 01/06/2025 3:15 PM EDT Clinical Support [facility] MED & PEDS [address] [place], [place] [phone] Liset Cage, RN [address] [place], [place] [phone] Health Maintenance Due Date Last Done Comments CT Colonography 1975 Dental Oral Exam 1975 Dental Prophylaxis 1975 Dental X-Ray: Full Mouth 1975 FIT DNA/Cologuard 1975 FIT 1975 FOBT 1975 Sigmoidoscopy 1975 Family Planning (PISQ) 12/21/1990 Hepatitis C Screening 12/21/1993 Depression Screening 02/27/2024 02/26/2023, 02/26/2023 COVID-19 Vaccine (4 - 2023-2 5 season) 2024 06/12/2021, 12/10/2020, 11/12/2020 Influenza [...] Procedure Name Priority Date/Time Associated Diagnosis Comments US RETROPERITONEAL COMPLETE Routine 10/27/2024 1:41 PM EDT BITEWING - SINGLE RADIOGRAPHIC IMAGE Routine 09/13/2023 1:00 PM EST LIPID PANEL WITH REFLEX TO DIRECT LDL Routine 08/27/2023 2:28 PM EST Elevated blood pressure reading HM COLONOSCOPY Routine 10/09/2022 ZZZ HISTORICAL HIV AB/AG Routine 04/27/2022 2:42 PM EDT from Last 3 Months or Most Recently Relevant to Health Maintenance Results * US Retroperitoneal Complete (10/27/2024 1:41 PM EDT) Anatomical Region Laterality Modality Ultrasound 10/27/2024 1:41 PM EDT Narrative 10/28/2024 7:13 AM EDT ? [facility] ?[address] ?[place] [address] ? Ultrasound Report ? Signed ? Patient: Iftikhar Ortolaza,Bridger ?MR#: M ?? [id number] ? : 1975 ?Acct:[id number] ? Age/Sex: 48 / M ?ADM Date: 04/01/25 ? Loc: HO.US ? Attending Dr: Rtia Edwards MD ? Ordering Physician: Rita Edwards MD ?? Date of Service: 10/27/24 ?? Procedure(s): US retroperitoneal comp ?? Accession Number(s): [id number] ? cc: Rita Edwards MD; Mely Vasquez MD ? EXAMINATION: ??US RETROPERITONEUM ? HISTORY: R35.0 - Frequency of micturition ? TECHNIQUE: Real-time grayscale ultrasound imaging of the kidneys was ?? performed and images were reviewed. ? COMPARISON: Correlation is made with an abdominal ultrasound dated ?? 01/09/2024. ? FINDINGS: ? Right kidney: ??The right kidney measures 9.6 x 5.1 x 6.0 cm. ??Renal ?? parenchymal echotexture and thickness are normal. ??There are no masses. ?? There is a probable small extrarenal pelvis. There is no ?? hydronephrosis or renal calculi. ? Left Kidney: ??The left kidney measures 9.2 x 5.1 x 4.5 cm. ??Renal ?? parenchymal echotexture and thickness are normal. ??There are no masses. ?? There is no hydronephrosis or renal calculi. ? The urinary bladder is unremarkable. Bilateral ureteral jets are ?? identified. Before voiding, the urinary bladder measured 12.5 x 8.7 x ?? 9.2 cm, for an estimated volume of 522 mL. After voiding, the urinary ?? bladder measured 4.7 x 3.9 x 4.6 cm, for an estimated volume of 44 mL. ?? The prostate measures 3.2 x 2.3 x 3.9 cm. ? US/US retroperitoneal comp ?? IMPRESSION: ? Unremarkable renal ultrasound. Post void bladder residual of 44 mL. ? Electronically signed by: ??Noe Martinez MD ??10/28/2024 07:10 AM EDT ?? RP ? Dictated By: ?Noe Martinez MD ? Signed By: ?<Electronically signed by Noe Martinez MD in OV> ?10/28/24 0710 ? DD/ 1341 ? TD/TT: 10/27/24 1353 ? Club Licensee: ? Procedure Note Donotuseinterpreter, Image - 10/28/[address] [address] Ultrasound Report Signed Patient: Hosea Stoner [facility]#: M [id number] : 1975Acct:[id number] Age/Sex: 48 / MADM Date: 10/27/24 Loc: HO.US Attending Dr: Rita Edwards MD Ordering Physician: Rita Edwards MD Date of Service: 10/27/24 Procedure(s): US retroperitoneal comp Accession Number(s): [id number] cc: Rita Edwards MD; Mely Vasquez MD EXAMINATION: US RETROPERITONEUM HISTORY: R35.0 - Frequency of micturition TECHNIQUE: Real-time grayscale ultrasound imaging of the kidneys was performed and images were reviewed. COMPARISON: Correlation is made with an abdominal ultrasound dated 01/09/2024. FINDINGS: Right kidney: The right kidney measures 9.6 x 5.1 x 6.0 cm. Renal parenchymal echotexture and thickness are normal. There are no masses. There is a probable small extrarenal pelvis. There is no hydronephrosis or renal calculi. Left Kidney: The left kidney measures 9.2 x 5.1 x 4.5 cm. Renal parenchymal echotexture and thickness are normal. There are no masses. There is no hydronephrosis or renal calculi. The urinary bladder is unremarkable. Bilateral ureteral jets are identified. Before voiding, the urinary bladder measured 12.5 x 8.7 x 9.2 cm, for an estimated volume of 522 mL. After voiding, the urinary bladder measured 4.7 x 3.9 x 4.6 cm, for an estimated volume of 44 mL. The prostate measures 3.2 x 2.3 x 3.9 cm. US/US retroperitoneal comp IMPRESSION: Unremarkable renal ultrasound. Post void bladder residual of 44 mL. Electronically signed by: Noe Martinez MD 10/28/2024 07:10 AM EDT Dictated By: Noe Martinez MD Signed By: <Electronically signed by Noe Martinez MD in OV> 10/28/24 0710 DD/ 1341 TD/TT: 10/27/24 1353 Club Licensee: [facility] External Provider IMG US PROCEDURES Edited Result - Final * (ABNORMAL) Lipid Panel with Reflex to Direct LDL (08/27/2023 2:28 PM EST) Triglycerides 177(H) <150 mg/dL [facility] Comment:Desirable Triglyceri de: less than [...] 190 mg/dL HDL Cholesterol 33(L) >40 mg/dL [facility] Comment:Desirable HDL: great er than 40 mg/dL Note: This HDL assay may give artificially low results in patients with liver disease. Blood 08/27/2023 2:28 PM EST 08/27/2023 4:05 PM EST Mely Vasquez MD LAB BLOOD ORDERABLES Final Resul t [facility] [address] [place] [phone] * Hm Colonoscopy (10/09/2022) Colonoscopy Normal Normal Historical Provider HEALTH MAINTENANCE Edited Result - Final * HIV AB/AG (04/27/2022 2:42 PM EDT) Pathologist [facility] HIV AB/AG Nonreactive Nonreactive [facility] [...] detection of this assay. ?? The [facility] Quality Control Microbiologist HIV Ag/Ab Combo assay result and supplemental [...] Most Recently Relevant to Health Maintenance Insurance [facility] MEDICARE ADVANTAGE DENTAL [facility] STAND ADULT DENTAL [facility] PPO Care Teams Critical Care Paramedic Relationship Specialty Start Date End Date Mely Vasquez MD [address] [place] [address] PCP - General Family Medicine 05/11/21
--- OUTSIDE RECORDS SUMMARY | 2024-12-02 17:47 | XMS_ITS | Encounter Summary ---
Author Organization [employer] Address [address] [facility] [address] 7[address] [place] [address] Care Team Providers Care Storage Solutions Architect Name Role Phone Mely Vasquez MD Primary Care Provider [phone] Reason for Visit * Reason Onset Date Comments Appointment Request 11/19/2024 Encounter Details Date Type Department Care Team ([facility] Contact Info) Description 11/19/2024 Telephone [facility] MEDICINE [address] [place], [place] [phone] Mely Vasquez MD [address] [place], [place] [phone] Appointment Request Social History Tobacco Use Types [...] encounter Miscellaneous Notes * Telephone Encounter - Caryl Sanchez - 11/19/2024 9:27 AM EDT Tc from pt canceling appointment of the 11/19/24 note RV DM / BP Contact pt at [phone] documented in this encounter Plan of Treatment Upcoming Encounters Date Type Department Care Team (Late st Contact Info) Description 12/29/2024 1:15 PM EDT Office Visit [facility] MEDICINE [address] [place] [address] Mely Vasquez MD [address] [place] [address] 01/06/2025 3:15 PM EDT Clinical Support [facility] MED [facility] PEDS [address] [place] [address] Liset Cage, APARNA [address] [place] [address] documented as of this encounter Visit Diagnoses Not on filedocumented in this encounter Additional Health Concerns Assessment Noted Time PHQ-9 Depression Total Score: 0 02/27/20 23 3:09 PM EDT documented as of this encounter Care Teams Storage Solutions Architect Relationship Specialty Start Date End Date Mely Vasquez MD [address] [place] [address] PCP - General Family Medicine 05/11/21 documented as of this encounter
--- OUTSIDE RECORDS SUMMARY | 2024-12-02 17:47 | XMS_ITS | Encounter Summary ---
Author Organization [employer] Address [address] [facility] [address] 7[address] [place] [address] Care Team Providers Care Shoe Ironer Name Role Phone Mely Vasquez MD Primary Care Provider [phone] Reason for Visit * Reason Onset Date Comments FYI 05/15/2023 Encounter Details Date Type Department Care Team ([facility] Contact Info) Description 05/15/2023 Telephone [facility] MEDICINE [address] [place], [place] [phone] Mely Vasquez MD [address] [place], [place] [phone] FYI Social History Tobacco Use Types Packs/Day [...] pt got an appt for 05/24/2023 at [facility] for lumbar pain. documented in this encounter Plan of Treatment Upcoming Encounters Date Type Department Care Team (Late st Contact Info) Description 12/29/2024 1:15 PM EDT Office Visit [facility] MEDICINE [address] [place] [address] Mely Vasquez MD [address] [place] [address] 01/06/2025 3:15 PM EDT Clinical Support [facility] MED & PEDS [address] [place] [address] Liset Cage, APARNA [address] [place] [address] documented as of this encounter Visit Diagnoses Not on filedocumented in this encounter Additional Health Concerns Assessment Noted Time PHQ-9 Depression Total Score: 0 02/27/20 23 3:09 PM EDT documented as of this encounter Care Teams Shoe Ironer Relationship Specialty Start Date End Date Mely Vasquez MD [address] [place] [address] PCP - General Family Medicine 05/11/21 documented as of this encounter
--- OUTSIDE RECORDS SUMMARY | 2024-12-02 17:47 | XMS_ITS | Encounter Summary ---
Author Organization [employer] Address [address] [facility] [address] 7[address] [place] [address] Care Team Providers Care Nurses Medical Assistants Phlebotomists Name Role Phone Mely Vasquez MD Primary Care Provider [phone] Reason for Visit * Reason Onset Date Comments Med Refill 01/28/2024 Encounter Details Date Type Department Care Team ([facility] st Contact Info) Description 01/28/2024 Telephone [facility] MEDICINE [address] [place], [place] [phone] Mely Vasquez MD [address] [place], [place] [phone] Med Refill Social History Tobacco Use Types [...] release tablet To be sent to: [facility]/pharmacy #[id number] [place] [address] documented in this encounter Plan of Treatment Upcoming Encounters Date Type Department Care Team (Late st Contact Info) Description 12/29/2024 1:15 PM EDT Office Visit [facility] MEDICINE [address] [place] [address] Mely Vasquez MD [address] [place] [address] 01/06/2025 3:15 PM EDT Clinical Support [facility] [address] [place] [address] Liset Cage, APARNA [address] [place] [address] documented as of this encounter Visit Diagnoses Not on filedocumented in this encounter Additional Health Concerns Assessment Noted Time PHQ-9 Depression Total Score: 0 02/27/20 23 3:09 PM EDT documented as of this encounter Care Teams Nurses Medical Assistants Phlebotomists Relationship Specialty Start Date End Date Mely Vasquez MD [address] [place] [address] PCP - General Family Medicine 05/11/21 documented as of this encounter
--- OUTSIDE RECORDS SUMMARY | 2024-12-02 17:47 | XMS_ITS | Encounter Summary ---
Author Organization [employer] Address [address] [facility] [address] 7t [place] [address] Care Team Providers Care Wet Pour Mixer Name Role Phone Mely Vasquez MD Primary Care Provider [phone] Reason for Visit * Reason Onset Date Comments Reschedule 12/04/2023 Encounter Details Date Type Department Care Team ([facility] st Contact Info) Description 12/04/2023 Telephone [facility] MEDICINE [address] [place], [place] [phone] Mely Vasquez MD [address] [place], [place] [phone] Reschedule Social History Tobacco Use Types Packs/Day [...] AM EDT Tc from pt requesting r/s BRAND DEVELOPMENT MANAGER appt documented in this encounter Plan of Treatment Upcoming Encounters Date Type Department Care Team (Late st Contact Info) Description 12/29/2024 1:15 PM EDT Office Visit [facility] MEDICINE [address] [place] [address] Mely Vasquez MD [address] [place] [address] 01/06/2025 3:15 PM EDT Clinical Support [facility] MED & PEDS [address] [place] [address] Liset Cage, APARNA [address] [place] [address] documented as of this encounter Visit Diagnoses Not on filedocumented in this encounter Additional Health Concerns Assessment Noted Time PHQ-9 Depression Total Score: 0 02/27/20 23 3:09 PM EDT documented as of this encounter Care Teams Wet Pour Mixer Relationship Specialty Start Date End Date Mely Vasquez MD [address] [place] [address] PCP - General Family Medicine 05/11/21 documented as of this encounter
--- OUTSIDE RECORDS SUMMARY | 2024-12-02 17:47 | XMS_ITS | Encounter Summary ---
Author Organization [employer] Address [address] [facility] [address] [place] [address] Care Team Providers Care Spanish Interpreter Name Role Phone eMly Vasquez MD Primary Care Provider [phone] Reason for Visit * Reason Comments Med Refill Encounter Details Date Type Department Care Team ([facility] st Contact Info) Description 04/26/2024 Refill [facility] MEDICINE [address] [place], [place] [phone] Mely Vasquez MD 230 [place], [place] [phone] Chronic rhinosinusitis; Chronic sinusitis, unspecified location Social [...] Description 12/29/2024 1:15 PM EDT Office Visit [facility] MEDICINE [address] [place] [address] Mely Vasquez MD [address] [place] [address] 01/06/2025 3:15 PM EDT Clinical Support [facility] MED [facility] PEDS [address] [place] [address] Liset Cage, APARNA [address] [place] [address] documented as of this encounter Visit Diagnoses Diagnosis Chronic rhinosinusitis Unspecified sinusitis (chronic) Chronic sinusitis, unspecified location documented in this encounter Additional Health Concerns Assessment Noted Time PHQ-9 Depression Total Score: 0 02/27/20 23 3:09 PM EDT documented as of this encounter Care Teams Spanish Interpreter Relationship Specialty Start Date End Date Mely Vasquez MD [address] [place] [address] PCP - General Family Medicine 05/11/21 documented as of this encounter
--- OUTSIDE RECORDS SUMMARY | 2024-12-02 17:47 | XMS_ITS | Encounter Summary ---
Author Organization [employer] Address [address] [facility] [address] 7[address] [place] [address] Care Team Providers Care Pit Boss Name Role Phone Mely Vasquez MD Primary Care Provider [phone] Reason for Visit * Reason Onset Date Comments Durable Medical Equipment 03/23/2024 Encounter Details Date Type Department Care Team ([facility] st Contact Info) Description 03/23/2024 Telephone [facility] MEDICINE [address] [place], [place] [phone] Mely Vasquez MD [address] [place], [place] [phone] Durable Medical Equipment Social History Tobacco Use [...] Description 12/29/2024 1:15 PM EDT Office Visit [facility] MEDICINE [address] [place] [address] Mely Vasquez MD [address] [place] [address] 01/06/2025 3:15 PM EDT Clinical Support [facility] MED [facility] PEDS [address] [place] [address] Liset Cage RN [address] [place] [address] documented as of this encounter Visit Diagnoses Not on filedocumented in this encounter Additional Health Concerns Assessment Noted Time PHQ-9 Depression Total Score: 0 02/27/20 3:09 PM EDT documented as of this encounter Care Teams Pit Boss Relationship Specialty Start Date End Date Mely Vasquez MD [address] [place] [address] PCP - General Family Medicine 05/11/21 documented as of this encounter
--- OUTSIDE RECORDS SUMMARY | 2024-12-02 17:47 | XMS_ITS | Encounter Summary ---
Author Organization [email or web address] Address [address] [place] [address] Care Team Providers Care Can Runner Name Role Phone Mely Vasquez MD Primary Care Provider [phone] Reason for Visit * Reason Onset Date Comments Med Refill 10/21/2024 Encounter Details Date Type Department Care Team ([facility] st Contact Info) Description 10/21/2024 Telephone [facility] MEDICINE [address] [place], [place] [phone] Mely Vasquez MD [address] [place], [place] [phone] Med Refill Social History Tobacco Use Types [...] release tablet To be sent to: [facility]/pharmacy [address] [place] [address] documented in this encounter Plan of Treatment Upcoming Encounters Date Type Department Care Team (Late st Contact Info) Description 12/29/2024 1:15 PM EDT Office Visit [facility] MEDICINE [address] [place] [address] Mely Vasquez MD [address] [place] [address] 01/06/2025 3:15 PM EDT Clinical Support [facility] MED & PEDS [address] [place] [address] Liset Cage, APARNA [address] [place] [address] documented as of this encounter Visit Diagnoses Not on filedocumented in this encounter Additional Health Concerns Assessment Noted Time PHQ-9 Depression Total Score: 0 02/27/20 23 3:09 PM EDT documented as of this encounter Care Teams Can Runner Relationship Specialty Start Date End Date Mely Vasquez MD [address] [place] [address] PCP - General Family Medicine 05/11/21 documented as of this encounter
--- OUTSIDE RECORDS SUMMARY | 2024-12-02 17:47 | XMS_ITS | Encounter Summary ---
Author Organization [employer] Address [address] [place] [address] Care Team Providers Care Dolly Driver Name Role Phone Mely Vasquez MD Primary Care Provider [phone] Reason for Visit * Reason Onset Date Comments Med Refill 06/26/2023 Encounter Details Date Type Department Care Team ([facility] st Contact Info) Description 06/26/2023 Refill [facility] MEDICINE [address] [place], [place] [phone] Mely Vasquez MD [address] [place], [place] [phone] Lumbar disc disease Social History Tobacco Use [...] 15 MG immediate release tablet [facility] [address] [place] [address] - [address] [place] [address] documented in this encounter Plan of Treatment Upcoming Encounters Date Type Department Care Team (Late st Contact Info) Description 12/29/2024 1:15 PM EDT Office Visit [facility] MEDICINE [address] [place] [address] Mely Vasquez MD [address] [place] [address] 01/06/2025 3:15 PM EDT Clinical Support [facility] CH[facility] MED & PEDS [address] [place] [address] Liset Cage, APARNA [address] [place] [address] documented as of this encounter Visit Diagnoses Diagnosis Lumbar disc disease Other and unspecified disc disorder of lumbar region documented in this encounter Additional Health Concerns Assessment Noted Time PHQ-9 Depression Total Score: 0 02/27/20 23 3:09 PM EDT documented as of this encounter Care Teams Dolly Driver Relationship Specialty Start Date End Date Mely Vasquez MD [address] [place] [id number] PCP - General Family Medicine 05/11/21 documented as of this encounter
--- OUTSIDE RECORDS SUMMARY | 2024-12-02 17:47 | XMS_ITS | Encounter Summary ---
Author Organization [employer] Address [address] [place] [address] Care Team Providers Care Hot Box Checker Name Role Phone Mely Vasquez MD Primary Care Provider [phone] Reason for Visit * Reason Onset Date Comments Med Refill 03/20/2024 Encounter Details Date Type Department Care Team ([facility] st Contact Info) Description 03/20/2024 Telephone [facility] MEDICINE [address] [place], [place] [phone] Mely Vasquez MD [address] [place], [place] [phone] Med Refill Social History Tobacco Use Types [...] immediate release tablet To be sent to: [facility]/pharmacy [address] [place] [address] documented in this encounter Plan of Treatment Upcoming Encounters Date Type Department Care Team (Late st Contact Info) Description 12/29/2024 1:15 PM EDT Office Visit [facility] MEDICINE [address] [place] [address] Mely Vasquez MD [address] [place] [address] 01/06/2025 3:15 PM EDT Clinical Support [facility] MED & PEDS [address] [place] [address] Liset Cage, APARNA [address] [place] [address] documented as of this encounter Visit Diagnoses Not on filedocumented in this encounter Additional Health Concerns Assessment Noted Time PHQ-9 Depression Total Score: 0 02/27/20 3:09 PM EDT documented as of this encounter Care Teams Hot Box Checker Relationship Specialty Start Date End Date Mely Vasquez MD [address] [place] [address] PCP - General Family Medicine 05/11/21 documented as of this encounter
[2024-12-02 17:56] LABS: INTERNATIONAL NORM RATIO 1.2 (0.9-1.1); Prothrombin Time 13.5 SEC (10.9-12.4)
[2024-12-02 18:03] LABS: Alanine Aminotransferase 16 U/L (0-40); Albumin Level 4.4 g/dL (3.5-5.0); Alkaline Phosphatase 61 U/L (39-117); Anion Gap 9 (12-20); Aspartate Amino Transferase 15 U/L (5-37); Bilirubin Direct 0.2 mg/dL (0.0-0.5); Bilirubin Total 0.4 mg/dL (0.0-1.0); Blood Urea Nitrogen 11 mg/dL (9-16); Calcium 9.4 mg/dL (8.4-10.2); Carbon Dioxide 27 mmol/L (22-29); Chloride 109 mmol/L (96-108); Estimated Glomerular Filt Rate > 60; Glucose Random 75 mg/dL (60-115); Lipase 44 U/L (8-78); Potassium 3.8 mmol/L (3.3-5.1); Sodium 141 mmol/L (135-145); Total Protein 6.9 g/dL (6.5-8.0)
[2024-12-02 18:07] LABS: Troponin-I High Sensitivity < 2.7 ng/L (<3.5-35.0)
[2024-12-02 18:09] LABS: Basophils Absolute Auto 0.1 X10*3/uL (0.0-0.2); Eosinophils Absolute Auto 0.1 X10*3/uL (0.0-0.4); Eosinophils Percent Auto 1.3 % (0-4); Hematocrit 44.1 % (42.0-52.0); Hemoglobin 14.9 g/dl (14.0-18.0); Imm Gran Abs Auto 0.02 X10*3/uL (0.00-0.03); Imm Gran Pct Auto 0.2 % (0.0-0.4); Lymphocytes Absolute Auto 2.6 X10*3/uL (1.2-4.9); Lymphocytes Percent Auto 32.2 % (20-40); Mean Corpuscular HGB Conc 33.8 g/dl (31.0-36.0); Mean Corpuscular Hemoglobin 31.4 pg (27.0-33.0); Mean Corpuscular Volume 92.8 fL (80.0-98.0); Mean Platelet Volume 10.4 fL (9.4-12.4); Monocytes Absolute Auto 0.5 X10*3/uL (0.1-1.2); Neutrophils Absolute Auto 4.9 x10*3/uL (2.0-8.3); Neutrophils Percent Auto 59.3 % (45-73); Platelet Count 300 X10*3/uL (160-400); Red Blood Count 4.75 X10*6/uL (4.60-5.80); Red Cell Distribution Width 13.2 % (11.0-16.0); White Blood Count 8.2 X10*3/uL (4.8-10.8)
--- NOTE | 2024-12-02 19:34 | ED.GENADULT ---
HPI - General Adult General Chief complaint: Abdominal Pain Stated complaint: upper quadrant pain x2 days, diarrhea Time Seen by Provider: 12/02/24 19:16 Source: patient, RN notes reviewed and old records reviewed Mode of arrival: EMS Limitations: no limitations History of Present Illness ED Provider: Alejandrina SMITH narrative: 48-year-old male with past medical history significant for GERD presents for evaluation of abdominal pain and black and bloody stool. Patient reports that 2 days ago he had dark black stool with abdominal pain. His abdominal pain is left upper abdomen. he also feels as though his abdomen is bloated he denies any rectal pain he reports that today he had several episodes of bright red blood per rectum he does have a history of internal hemorrhoids he had a colonoscopy 2 years ago that had some polyps or has benign he is not anticoagulated, denies the use of NSAIDs and does not drink alcohol the patient reports being compliant with his omeprazole 40 mg b.i.d. Related Data Home Medications ?Medication ?Instructions ?Recorded ?Confirmed albuterol sulfate 90 mcg/actuation 2 puff inhalation Q4-6H PRN 12/04/21 08/31/24 aerosol inhaler wheezing alprazolam 0.5 mg tablet 0.5 mg PO DAILY PRN anxiety 12/04/21 08/31/24 cetirizine 10 mg tablet 10 mg PO QAM 12/27/22 08/31/24 cholecalciferol (vitamin D3) 50 50 mcg PO DAILY 12/27/22 08/31/24 mcg (2,000 unit) capsule valacyclovir 500 mg tablet 500 mg PO DAILY 12/27/22 08/31/24 acetaminophen 500 mg tablet 500 mg PO Q6H PRN Pain, Mild 04/24/24 08/31/24 oxycodone 15 mg tablet 15 mg PO TID PRN 06/03/24 08/31/24 sennosides 8.6 mg tablet (senna) 17.2 mg PO BEDTIME PRN constipation 06/03/24 08/31/24 Previous Rx's ?Medication ?Instructions ?Recorded omeprazole 40 mg capsule,delayed 40 mg PO BID 30 days #60 caps 06/03/24 release testosterone 2 pump topical DAILY 30 days #75 08/31/24 grams lidocaine 5 % topical patch 1 patch topical DAILY #15 ea 11/07/24 (Lidoderm) methocarbamol 750 mg tablet 750 mg PO Q8H #6 tabs 11/07/24 amoxicillin 875 mg-potassium 1 tab PO Q12H #14 tabs 12/02/24 clavulanate 125 mg tablet Allergies Allergy/AdvReac Type Severity Reaction Status Date / Time amitriptyline Allergy Severe Confusion Verified 12/02/24 17:34 morphine [MORPHINE] Allergy Severe CONSTIPATION, Verified 12/02/24 17:34 stomach upset ibuprofen [From MOTRIN] AdvReac Intermediate ABD PAIN Verified 12/02/24 17:34 cyclobenzaprine AdvReac Mild DRY MOUTH Verified 12/02/24 17:34 [From FLEXERIL] influenza H1N1 Allergy Intermediate Weakness Uncoded 12/02/24 17:34 Review of Systems Constitutional: Constitutional: Denies body ache(s), Denies chills, Denies fever(s) and Denies headache(s) Eyes: Eyes: Denies blurry vision ENT: Denies vertigo, Denies dizziness and Denies headache(s) Cardiovascular: Cardiovascular: Denies chest pain Gastrointestinal: Gastrointestinal: Reports abdominal pain, Reports melena, Reports bloating, Reports hematochezia, Denies diarrhea, Denies loose stools, Reports nausea and Denies vomiting Neurologic: Denies vertigo, Denies dizziness and Denies headache(s) [facility] Past Medical History Medical History Left inguinal hernia (04/26/24) Left groin hernia Screening PSA (prostate specific antigen) Rib pain on left side Constipation GERD (gastroesophageal reflux disease) Depression with anxiety Asthma Colon cancer screening Pelvis, multiple open fractures with disruption of pelvic [place] Failed spinal cord stimulator Surgical History History of esophagogastroduodenoscopy (EGD) H/O colonoscopy History of arthroscopy of right knee History of back surgery H/O pelvic surgery H/O enucleation of left eyeball Social History Social History Are you a primary patient care director to a significant other at home: No Do you presently have visiting nurse or other home services: No Alcohol intake: never Patient Tobacco Use Status: Current everyday Tobacco user Tobacco use type: Cigarette Cigarettes Per Day: 10 Physical Exam ED Vital Signs: Vital Signs - 24 hr 12/02/24 17:33 12/02/24 19:39 12/02/24 21:28 Temperature 98.3 F 98.5 F 97.7 F Pulse Rate 75 55 76 Respiratory Rate 20 20 18 Blood Pressure 117/73 110/74 126/88 Pulse Oximetry 100 100 98 Oxygen Delivery Method Room Air Room Air Room Air 12/02/24 21:32 Temperature 97.7 F Pulse Rate 76 Respiratory Rate 18 Blood Pressure 126/88 Pulse Oximetry 98 Oxygen Delivery Method Room Air BMI result Body Mass Index 24.3 Const General: healthy appearing, comfortable, no acute distress, alert and awake Nutritional Appearance: well nourished Orientation/consciousness: patient oriented x3 HENMT Head: Yes normocephalic and Yes atraumatic Eyes Eyelids: Yes eyelids normal Conjunctivae: conjunctivae normal Sclerae: sclerae normal Corneas: corneas normal Pupils: Equal, round and reactive pupils present EOM: EOMs intact bilaterally Neck Neck: Yes full ROM Resp Effort & Inspection: normal respiratory effort, able to speak in complete sentences and not labored Cardio Rate: regular rate Rhythm: regular rhythm GI Inspection: Yes distended Palpation (GI): not firm, Tenderness to palpation present (GI) in the epigastrum and in the LUQ; with no rebound tenderness, no guarding and not rigid Auscultation: normoactive bowel sounds Rectal Exam - Male: Yes visual inspection normal, Yes normal sphincter tone and Yes heme positive stool ( light brown, but heme-positive) Skin General skin exam: no rashes or lesions noted and elasticity normal Neuro General: patient oriented x3 Cranial nerves: Yes Equal, round and reactive pupils present and Yes Bilaterally intact EOM present Cognition (Neuro): normal cognition Extrem Other: Moving all extremities well without any obvious deformities Course Reevaluation(s) Reevaluation #1: patient's CT scan shows moderate colitis. I discussed treatment including liquid diet versus antibiotics. The patient would like to start antibiotics today. He reports that he has a follow-up with GI on Saturday. given that his stool was light brown, his hemoglobin is stable signs are stable, He has close follow-up he will be discharged to follow up as an outpatient. Medications Administered Discontinued Medications Generic Name Dose Route Start Last Admin Trade Name Freq PRN Reason Stop Dose Admin Al Hydroxide/Mg Hydroxide 30 ml 12/02/24 19:33 12/02/24 19:39 Magnesium Hydrox/Alum Hydrox 30 Ml Oral.Susp PO 12/02/24 19:34 30 ml ONCE ONE Administration Iohexol 100 ml 12/02/24 20:12 12/02/24 20:12 Iohexol 350 Mg/Ml 100 Ml Infus..Btl IV 12/02/24 20:13 85 ml ONCE ONE Administration Lidocaine HCl 15 ml 12/02/24 19:33 12/02/24 19:39 Lidocaine Hcl Viscous 2 % 15 Ml Solution MUCOUS MEM 12/02/24 19:34 15 ml ONCE ONE Administration Pantoprazole Sodium 40 mg 12/02/24 19:32 12/02/24 19:39 Pantoprazole Sodium 40 Mg/10 Ml Vial IVPUSH 12/02/24 19:33 40 mg ONCE ONE Administration Medical Decision Making Medical Decision Making [facility] Narrative: 48-year-old male presents for evaluation of abdominal pain. He reports both dark, black tarry stools as well as bright red bleeding. He does carry history of GERD and internal hemorrhoids. It is possible that he has peptic ulcer disease and a bleeding hemorrhoid as well as internal hemorrhoids. There are no external hemorrhoids on exam, do not feel any rectal masses during rectal examination. His hemoglobin hematocrit are within normal limits, no evidence of significant bleeding. Guaiac is pending. I ordered a CT scan of the abdomen pelvis given his significant pain with abdominal distention. I ordered a dose of Protonix given the reported black stool, left upper lobe pain and history of GERD. Differential Diagnosis Differential Diagnoses: The differential diagnosis associated with the presentation includes upper GI bleed Lower GI bleed Peptic ulcer disease Abdominal pain Internal hemorrhoid Rectal bleeding Bowel obstruction Lab Data MDM Lab Attestation statement: I reviewed the patient's lab results. no leukocytosis or anemia. Normal platelet count. No significant electrolyte abnormalities. BUN and creatinine are within normal limits 12/02/24 17:43 12/02/24 17:43 Labs: Lab Results 12/02/24 12/02/24 Range/Units 17:43 19:37 WBC 8.2 (4.8-10.8) X10*3/uL RBC 4.75 (4.60-5.80) X10*6/uL Hgb 14.9 (14.0-18.0) g/dl Hct 44.1 (42.0-52.0) % MCV 92.8 (80.0-98.0) fL MCH 31.4 (27.0-33.0) pg MCHC 33.8 (31.0-36.0) g/dl RDW 13.2 (11.0-16.0) % Plt Count 300 (160-400) X10*3/uL MPV 10.4 (9.4-12.4) fL Immature Gran % (Auto) 0.2 (0.0-0.4) % Neut % (Auto) 59.3 (45-73) % Lymph % (Auto) 32.2 (20-40) % Craig % (Auto) 6.0 (2-11) % Eos % (Auto) 1.3 (0-4) % Baso % (Auto) 1.0 (0-2) % Lymph # (Auto) 2.6 (1.2-4.9) X10*3/uL Craig # (Auto) 0.5 (0.1-1.2) X10*3/uL Eos # (Auto) 0.1 (0.0-0.4) X10*3/uL Baso # (Auto) 0.1 (0.0-0.2) X10*3/uL Abs Immat Gran (auto) 0.02 (0.00-0.03) X10*3/uL Absolute Neuts (auto) 4.9 (2.0-8.3) x10*3/uL Absolute Nucleated RBC 0.000 (0.0-0.012) X10*3/uL Nucleated RBC % (auto) 0.0 (0.0-0.2) /100WBC PT 13.5 H (10.9-12.4) SEC INR 1.2 H (0.9-1.1) Sodium 141 (135-145) mmol/L Potassium 3.8 (3.3-5.1) mmol/L Chloride 109 H (96-108) mmol/L Carbon Dioxide 27 (22-29) mmol/L Anion Gap 9 L (12-20) BUN 11 (9-16) mg/dL Creatinine 0.82 (0.5-1.4) mg/dL Estim Creat Clear Calc 85.0 Estimated GFR > 60 Random Glucose 75 (60-115) mg/dL Calcium 9.4 (8.4-10.2) mg/dL Total Bilirubin 0.4 (0.0-1.0) mg/dL Direct Bilirubin 0.2 (0.0-0.5) mg/dL AST 15 (5-37) U/L ALT 16 (0-40) U/L Alkaline Phosphatase 61 (39-117) U/L Troponin I High Sens < 2.7 (<3.5-35.0) ng/L Total Protein 6.9 (6.5-8.0) g/dL Albumin 4.4 (3.5-5.0) g/dL Lipase 44 (8-78) U/L Urine Color Yellow Urine Appearance Clear Urine pH 6.0 (5.0-9.0) Ur Specific [place] 1.015 (1.005-1.025) Urine Protein Negative (Neg-Trace) mg/dL Urine Glucose (UA) Negative (Negative) mg/dL Urine Ketones Negative (Negative) mg/dL Urine Blood Negative (Negative) Urine Nitrite Negative (Negative) Ur Leukocyte Esterase Negative (Negative) Stool Occult Blood POSITIVE (NEGATIVE) Radiology Impression Discussion of test interpretation with radiology: I have reviewed the radiologist's reading. Radiologist Impression: Findings: Mild bibasilar atelectasis/pneumonitis with respiratory motion artifacts. Mild fat deposition of the liver. No significant change in small cystic lesions of the liver and imaged kidneys accounting for differences in artifacts. The adrenal glands are normal. The spleen is nonenlarged. Pancreas and gallbladder are unremarkable accounting for artifacts. Calcified and noncalcified plaque including the imaged aorta and its branches. Small mesenteric lymph nodes are likely reactive. No small bowel obstruction. Moderate to severe stool burden present, including the cecum. The appendix is not definitively seen. Wall thickening of the large intestine concerning for colitis, particularly involving the descending colon in the sigmoid colon given adjacent fluid and stranding. Soft tissue of the left inguinal ring is nonspecific and may reflect left testicle. Prostate gland measures 4.5 cm transverse. New moderate wall thickening of the urinary bladder is nonspecific and may reflect cystitis. No significant change in posterior instrumentation of the L5-S1. No hardware loosening by CT. Adjacent segment change including facet arthropathy. Additional facet arthropathy noted. IMPRESSION: 1. Wall thickening of the large intestine concerning for colitis, including descending colon and sigmoid colon. 2. Moderate wall thickening of the urinary bladder. This document has been electronically signed by: Craig Reich MD on 12/02/2024 20:47:48 Discharge Plan Discharge Clinical Impression: Colitis Patient Disposition: Home, Self-Care Instructions: Colitis (ED) Additional Instructions: your CT scan showed colitis which can sometimes be infectious or inflammatory. The treatment is usually a liquid diet sometimes antibiotics helps, so you may begin Augmentin twice daily for 1 week. Follow-up with your primary doctor in your GI doctor as discussed return for new or worsening symptoms Prescriptions: New amoxicillin-pot clavulanate 875-125 mg tablet 1 tab PO Q12H Qty: 14 0RF No Action acetaminophen 500 mg Tablet 500 mg PO Q6H PRN (Reason: Pain, Mild) methocarbamol 750 mg tablet 750 mg PO Q8H Qty: 6 0RF lidocaine [Lidoderm] 5 % adhesive patch,medicated 1 patch topical DAILY Qty: 15 0RF Rx Instructions: leave on most painful area for up to 12 hrs alprazolam 0.5 mg tablet 0.5 mg PO DAILY PRN (Reason: anxiety) albuterol sulfate 90 mcg/actuation HFA aerosol inhaler 2 puff inhalation Q4-6H PRN (Reason: wheezing) cetirizine 10 mg tablet 10 mg PO QAM valacyclovir 500 mg tablet 500 mg PO DAILY cholecalciferol (vitamin D3) 50 mcg (2,000 unit) capsule 50 mcg PO DAILY sennosides [senna] 8.6 mg tablet 17.2 mg PO BEDTIME PRN (Reason: constipation) oxycodone 15 mg tablet 15 mg PO TID PRN omeprazole 40 mg capsule,delayed release(DR/EC) 40 mg PO BID 30 Days Qty: 60 6RF testosterone 20.25 mg/1.25 gram (1.62 %) gel in metered-dose pump 2 pump topical DAILY 30 Days Qty: 75 3RF Interventions: ED Discharge Assessment Last Done: 12/02/24 21:32 Discharge Date/Time: 12/02/24 21:32 Print Language: Romansh
[2024-12-02 19:39] VITALS: BP 110/74; PULSE 55; RESP 20; TEMP 36.9; O2SAT 100
[2024-12-02] MEDS: Magnesium Hydrox/Alum Hydrox 30 ML ORAL.SUSP PO (19:39)
[2024-12-02] MEDS: Lidocaine HCl Viscous 2 % 15 ML SOLUTION MUCOUS MEM (19:39)
[2024-12-02] MEDS: Pantoprazole Sodium 40 MG/10 ML VIAL IVPUSH (19:39)
[2024-12-02 19:43] LABS: OBS Int Ctl Valid YES; OBS1 POSITIVE (NEGATIVE)
[2024-12-02 20:05] LABS: Appearance Urine Clear; Color Urine Yellow; Glucose Urine UA Negative (Negative); Leukocyte Esterase Urine Negative (Negative); Nitrite Urine Negative (Negative); Specific Gravity - Urine 1.015 (1.005-1.025); Urine Blood Negative (Negative); Urine Ketones Negative (Negative); Urine Protein Negative (Neg-Trace)
[2024-12-02] MEDS: iohexoL 350 MG/ML 100 ML INFUS..BTL IV (20:12)
[2024-12-02 21:28] VITALS: BP 126/88; PULSE 76; RESP 18; TEMP 36.5; O2SAT 98
[2024-12-02 21:32] VITALS: BP 126/88; PULSE 76; RESP 18; TEMP 36.5; O2SAT 98
== END 2024-12-02 21:32 | disposition home or self-care (01) ==
PROVIDERS: Emergency Provider Emergency Medicine
DX: K52.9 Noninfective gastroenteritis and colitis, unspecified (principal); R10.2 Pelvic and perineal pain; Z79.899 Other long term (current) drug therapy
CPT/HCPCS: 36415; 74177; 80048; 80076; 81003; 82272; 83690; 84484; 85025; 85610; 96374; 99284; J2470; Q9967

== ENCOUNTER → 2024-12-02 19:32 | Outpatient (BNV) | payer MEDICARE, MEDICAID, SELFPAY | PROVIDERS: Emergency Provider Emergency Medicine; Visit Provider Radiology Neuroradiology | DX: K63.89 Other specified diseases of intestine (principal); N32.89 Other specified disorders of bladder | CPT/HCPCS: 74177 ==

== ENCOUNTER 2024-12-04 15:37 | Outpatient (AMB) | payer MEDICARE, SELFPAY ==
--- OUTSIDE RECORDS SUMMARY | 2024-12-04 15:39 | XMS_ITS | Clinical Summary ---
Author Organization [employer] [facility] ity Address [address] [place] [address] Care Team Providers Care Rate Clerk Passenger Name Role Phone Unavailable Primary Care Provider [...]
[2024-12-04 15:40] VITALS: BP 136/98; PULSE 65; O2SAT 100; BMI 23.1
--- NOTE | 2024-12-04 15:40 | MHC.OFFVIS ---
Vital Signs 12/04/24 15:40 Height 5 ft 2 in Weight 126 lb 1.671 oz BMI 23.1 BP 136/98 H Blood Pressure Location Rt brachial Position Sitting Pulse 65 Pulse Source Pulse Oximeter Pulse Oximetry (%) 100 Oxygen Delivery Method Room Air Intake Visit Reasons: 6 months f/u GERD Allergies amitriptyline Allergy (Severe, Verified 12/04/24 15:46) Confusion morphine [MORPHINE] Allergy (Severe, Verified 12/04/24 15:46) CONSTIPATION, stomach upset ibuprofen [From MOTRIN] Adverse Reaction (Intermediate, Verified 12/04/24 15:46) ABD PAIN cyclobenzaprine [From FLEXERIL] Adverse Reaction (Mild, Verified 12/04/24 15:46) DRY MOUTH influenza H1N1 Allergy (Intermediate, Uncoded 12/04/24 15:46) Weakness HPI HPI 6 months f/u GERD: Details: Assessment & Plan (1) GERD (gastroesophageal reflux disease): Code(s): K21.9 - Gastro-esophageal reflux disease without esophagitis Category: Medical (2) Constipation: Code(s): K59.00 - Constipation, unspecified Category: Medical (3) GERD (gastroesophageal reflux disease): Code(s): K21.9 - Gastro-esophageal reflux disease without esophagitis Category: Medical Plan He recently had 2 inguinal hernia repairs via Dr. Hobson in the [facility]. He still has some stabbing in the area but he is also still healing. He is adherent to his bid 20mg o2o but still has burning with eating. Likely r/t the sliding HH and recent surgery. He also has frequent dyspepsia. This is magdalena so with his am coffee, despite it being decaf. He is willing to watch and wait at this point before we consider an increase in his omeprazole dose. He feels that the senna continues to work well. ROV 6 weeks. If ok sync up next appt with his 's 6 mos. Medications: New omeprazole 40 mg PO BID 60 caps 6RF 30 days K21.9 - Gastro-esophageal reflux disease without esophagitis Discontinued omeprazole Discontinued Reason: Doctor's Order 20 mg PO BID 60 caps 6RF K21.9 - Gastro-esophageal reflux disease without esophagitis LABS; Laboratory Tests 12/02/24 17:43 WBC 8.2 Hgb 14.9 Hct 44.1 Plt Count 300 Estimated GFR > 60 Total Bilirubin 0.4 Direct Bilirubin 0.2 AST 15 ALT 16 Alkaline Phosphatase 61 Lipase 44 12/02/24-[address]: Generic ED Physician Physician,Unknown ORDERED: Ua Clean Catch QUERIES: Source: Urine, Clean Catch Test Result Flag Reference Ur Color Yellow Ur Appear Clear PH 6.0 5.0-9.0 Ur Glu Negative Negative mg/dL Urine Blood Negative Negative Spec [place] Ur 1.015 1.005-1.025 Urine Protein Negative Neg-Trace mg/dL Urine Ketones Negative Negative mg/dL Ur Nitrite Negative Negative Ur Judie Esterase Negative Negative CT ABD AND PELVIS Findings: Mild bibasilar atelectasis/pneumonitis with respiratory motion artifacts. Mild fat deposition of the liver. No significant change in small cystic lesions of the liver and imaged kidneys accounting for differences in artifacts. The adrenal glands are normal. The spleen is nonenlarged. Pancreas and gallbladder are unremarkable accounting for artifacts. Calcified and noncalcified plaque including the imaged aorta and its branches. Small mesenteric lymph nodes are likely reactive. No small bowel obstruction. Moderate to severe stool burden present, including the cecum. The appendix is not definitively seen. Wall thickening of the large intestine concerning for colitis, particularly involving the descending colon in the sigmoid colon given adjacent fluid and stranding. Soft tissue of the left inguinal ring is nonspecific and may reflect left testicle. Prostate gland measures 4.5 cm transverse. New moderate wall thickening of the urinary bladder is nonspecific and may reflect cystitis. No significant change in posterior instrumentation of the L5-S1. No hardware loosening by CT. Adjacent segment change including facet arthropathy. Additional facet arthropathy noted. IMPRESSION: 1. Wall thickening of the large intestine concerning for colitis, including descending colon and sigmoid colon. 2. Moderate wall thickening of the urinary bladder. TODAY'S VISIT [place] # translate per pt request He started having rectal bleeding again, and he presented to the ER and he had colitis. With review of the CT it appears that it was diverticulitis. The ER put him on augementin. He was feeling better yesterday, but is more bloated today. . The CT also him to be full of stool, so I think that his senna a 1 a night is not doing well enough. Since he has loose stools taking 2 a night, I recommend that he do 1 qhs alt with 2qhs. He could not swallow the 40mg o2o capsule, so he was using his 's 20mg one. I will change him to pantoprazole 40m gbid as this is a smaller tablet. ROV 3 weeks. [facility] Medical History Low testosterone Encounter for monitoring testosterone replacement therapy Upper abdominal pain Herpes simplex Rib pain on left side GERD (gastroesophageal reflux disease) Left inguinal hernia (04/26/24) Left groin hernia Screening PSA (prostate specific antigen) Constipation Depression with anxiety Asthma Colon cancer screening Pelvis, multiple open fractures with disruption of pelvic [place] Failed spinal cord stimulator Surgical History Status post inguinal hernia repair using synthetic patch Postop check History of esophagogastroduodenoscopy (EGD) H/O colonoscopy History of arthroscopy of right knee History of back surgery H/O pelvic surgery H/O enucleation of left eyeball Social History Are you a primary director of healthcare systems to a significant other at home: No Do you presently have visiting nurse or other home services: No Alcohol intake: never Patient Tobacco Use Status: Current everyday Tobacco user Tobacco use type: Cigarette Cigarettes Per Day: 10 Review of Systems Const Denies fatigue, Denies fever(s), Reports malaise, Denies night sweats, Denies poor appetite and Denies weight loss ENT Reports Normal hearing present, Denies dental pain, Denies dysphagia, Denies hearing loss, Denies mouth pain, Denies odynophagia, Denies throat swelling, Denies tongue swelling and Reports other (Dentition adequate) Card Reports no additional complaints Resp Reports no additional complaints GI Details: Reports abdominal pain, Denies melena, Reports bloating, Reports hematochezia, Reports constipation, Denies GI cramping, Denies dysphagia, Denies excessive flatus, Denies early satiety, Reports heartburn, Denies diarrhea, Reports nausea, Denies odynophagia, Denies vomiting and Denies hematemesis Skin/Breast Denies pruritus, Denies lesions, Denies rash and Denies jaundice Neuro Reports Normal hearing present and Denies Abnormal speech present Endo Denies fatigue Aller/Immun Denies throat swelling and Denies tongue swelling Physical Exam Vital Signs: Last Vital Signs Pulse 65 12/04/24 15:40 BP 136/98 H 12/04/24 15:40 Pulse Ox 100 12/04/24 15:40 Oxygen Delivery Method Room Air 12/04/24 15:40 BMI result Body Mass Index 23.1 Const General: cooperative, no acute distress, well developed and well groomed Nutritional Appearance: average body habitus and well nourished Orientation/consciousness: oriented to person, oriented to place and oriented to time Limitations: language barrier HEENT Head: Yes normocephalic and Yes atraumatic Eyes General: dysmorphic Pupils: Equal, round and reactive pupils present Neck Neck: Yes normal visual inspection and Yes no lymphadenopathy Thyroid: Thyroid normal Resp Effort & Inspection: normal respiratory effort and able to speak in complete sentences Auscultation: clear to auscultation bilaterally Cardio Rate: regular rate Rhythm: regular rhythm Heart sounds: Normal, physiologic split S2 sound present Peripheral pulses: radial pulses present and posterior tibial pulses present GI Inspection: Yes distended and No Abdominal panniculus present Palpation (GI): Soft to palpation, Tenderness to palpation present (GI) in the LLQ and in the LUQ, no guarding, not rigid and No hepatosplenomegaly present Percussion: Yes normal to percussion Auscultation: normal bowel sounds Rectal Exam - Male: Yes deferred Skin General skin exam: no rashes or lesions noted, turgor normal, skin not dry, no jaundice, No spider nevi and no striae Rashes: no rashes Nails: normal Neuro General: oriented to person, oriented to place and oriented to time Cranial nerves: Yes Equal, round and reactive pupils present and Yes Normal hearing present Speech: No Abnormal speech present Extrem General: Yes normal to inspection, No clubbing, No cyanosis and No edema Psych Appearance: grossly normal and well kempt Mental Status: mental status grossly normal Speech and movement: Normal speech and movement present Affect: normal affect Attitude: cooperative Thought process: not confabulating and Impoverished thought process present Thought content: Normal thought content present Insight: Limited insight present (Psych) Judgement: Limited judgement present (Psych) Results Reviewed Results Reviewed: Laboratory Tests 12/02/24 17:43 WBC 8.2 Hgb 14.9 Hct 44.1 Plt Count 300 Estimated GFR > 60 Total Bilirubin 0.4 Direct Bilirubin 0.2 AST 15 ALT 16 Alkaline Phosphatase 61 Lipase 44 12/02/24-[address]: Generic ED Physician Physician,Unknown ORDERED: Ua Clean Catch QUERIES: Source: Urine, Clean Catch Test Result Flag Reference Ur Color Yellow Ur Appear Clear PH 6.0 5.0-9.0 Ur Glu Negative Negative mg/dL Urine Blood Negative Negative Spec [place] Ur 1.015 1.005-1.025 Urine Protein Negative Neg-Trace mg/dL Urine Ketones Negative Negative mg/dL Ur Nitrite Negative Negative Ur Judie Esterase Negative Negative CT ABD AND PELVIS Findings: Mild bibasilar atelectasis/pneumonitis with respiratory motion artifacts. Mild fat deposition of the liver. No significant change in small cystic lesions of the liver and imaged kidneys accounting for differences in artifacts. The adrenal glands are normal. The spleen is nonenlarged. Pancreas and gallbladder are unremarkable accounting for artifacts. Calcified and noncalcified plaque including the imaged aorta and its branches. Small mesenteric lymph nodes are likely reactive. No small bowel obstruction. Moderate to severe stool burden present, including the cecum. The appendix is not definitively seen. Wall thickening of the large intestine concerning for colitis, particularly involving the descending colon in the sigmoid colon given adjacent fluid and stranding. Soft tissue of the left inguinal ring is nonspecific and may reflect left testicle. Prostate gland measures 4.5 cm transverse. New moderate wall thickening of the urinary bladder is nonspecific and may reflect cystitis. No significant change in posterior instrumentation of the L5-S1. No hardware loosening by CT. Adjacent segment change including facet arthropathy. Additional facet arthropathy noted. IMPRESSION: 1. Wall thickening of the large intestine concerning for colitis, including descending colon and sigmoid colon. 2. Moderate wall thickening of the urinary bladder. Assessment & Plan Assessment & Plan (1) GERD (gastroesophageal reflux disease): Code(s): K21.9 - Gastro-esophageal reflux disease without esophagitis Category: Medical (2) Constipation: Code(s): K59.00 - Constipation, unspecified Category: Medical Plan [place] # translate per pt request He started having rectal bleeding again, and he presented to the ER and he had colitis. With review of the CT it appears that it was diverticulitis. The ER put him on augementin. He was feeling better yesterday, but is more bloated today. . The CT also him to be full of stool, so I think that his senna a 1 a night is not doing well enough. Since he has loose stools taking 2 a night, I recommend that he do 1 qhs alt with 2qhs. He could not swallow the 40mg o2o capsule, so he was using his 's 20mg one. I will change him to pantoprazole 40m gbid as this is a smaller tablet. ROV 3 weeks Medications: New pantoprazole (Protonix) 40 mg PO BID 60 tabs 6RF 30 days Changed From sennosides (senna) 17.2 mg PO BEDTIME PRN constipation K59.00 - Constipation, unspecified To sennosides (senna) 17.2 mg (2 x 8.6 mg) PO BEDTIME 60 tabs 6RF constipation K59.00 - Constipation, unspecified Discontinued omeprazole Discontinued Reason: Change Referral Type 40 mg PO BID 30 days 60 caps 6RF K21.9 - Gastro-esophageal reflux disease without esophagitis Coding Level of Care Code Est Pt Level 4 (84104) Diagnoses GERD (gastroesophageal reflux disease) K21.9 Constipation K59.00 Time Spent (min) 35
== END 2024-12-04 16:20 | disposition home or self-care (01) ==
LOC: HO.HGI 15:38
PROVIDERS: PCP Family Medicine; Visit Provider Nurse Practitioner
DX: K21.9 Gastro-esophageal reflux disease without esophagitis (principal); K59.00 Constipation, unspecified
CPT/HCPCS: 99214

== ENCOUNTER → 2024-12-04 15:37 | Outpatient (BNVA) | payer MEDICARE, SELFPAY | PROVIDERS: PCP Family Medicine; Visit Provider Nurse Practitioner | DX: K21.9 Gastro-esophageal reflux disease without esophagitis (principal); K59.00 Constipation, unspecified | CPT/HCPCS: 99212 ==

== ENCOUNTER 2024-12-16 15:57 | Outpatient (AMB) | payer MEDICARE, MEDICAID, SELFPAY ==
--- NOTE | 2024-12-16 15:50 | A.OFFVIS_ITS ---
Intake Visit Reasons: US Intake Note: Patient is present for / Urology Medication:TESTOSTERONE Antibiotic Allergy:NONE Blood Thinner:NONE Him Tech Required: Yes Him Tech Services: Him Tech Present Him Tech Name: Gabriel Information Interpreted: non-clinical & clinical Allergies amitriptyline Allergy (Severe, Verified 01/20/25 14:26) Confusion morphine (MORPHINE) Allergy (Severe, Verified 01/20/25 14:26) CONSTIPATION, stomach upset ibuprofen (From MOTRIN) Adverse Reaction (Intermediate, Verified 01/20/25 14:26) ABD PAIN cyclobenzaprine (From FLEXERIL) Adverse Reaction (Mild, Verified 01/20/25 14:26) DRY MOUTH influenza H1N1 Allergy (Intermediate, Uncoded 12/25/24 15:18) Weakness HPI Comments Details: 12/16/24--Hosea is followed for low testosterone, LUTS of frequency and urgency. FU renal US-10/27/24 - Results discussed - Kidneys WNL, negative for renal calcu li. Trial Vesicare for OAB symptoms. 08/31/24--telehealth video follow-up low testosterone, I have reviewed testosterone levels have improved total testosterone is greater than 500. The patient states he still has problems with erections. He also is complaining of urinary frequency and urgency. He denies dysuria. I will have him follow-up to check urine and will also evaluate kidneys and bladder ultrasound prior. Consider addition of Cialis daily 5 mg in addition to testosterone replacement. 04/10/24--Telehealth fu, reviewed labs, PSA - 03/20/24- 0.58 ng/mL. Total and Free testosterone is low, 385 and 63.5. Discussed testosterone replacement therapy. 01/09/24--Hosea is here for evaluation for enlarged prostate. He complains of weak urinary stream and nocturia. He also has complaints of erectile dysfunction, not able to maintain an erection. Discussed trial of tamsulosin. Will check hormone levels, including free and total testosterone and PSA screening. [facility] Medical History Low testosterone Encounter for monitoring testosterone replacement therapy Upper abdominal pain Herpes simplex Rib pain on left side GERD (gastroesophageal reflux disease) Left inguinal hernia (04/26/24) Left groin hernia Screening PSA (prostate specific antigen) Constipation Depression with anxiety Asthma Colon cancer screening Pelvis, multiple open fractures with disruption of pelvic [place] Failed spinal cord stimulator Surgical History Status post inguinal hernia repair using synthetic patch Postop check History of esophagogastroduodenoscopy (EGD) H/O colonoscopy History of arthroscopy of right knee History of back surgery H/O pelvic surgery H/O enucleation of left eyeball Social History Are you a primary memory care program resident to a significant other at home: No Do you presently have visiting nurse or other home services: No Alcohol intake: never Patient Tobacco Use Status: Current everyday Tobacco user Tobacco use type: Cigarette Cigarettes Per Day: 10 Review of Systems Const All systems reviewed & are unremarkable except as noted in HPI and below Reports no additional complaints Eyes Reports no additional complaints ENT Reports no additional complaints Card Reports no additional complaints Resp Reports no additional complaints GI Reports no additional complaints Reports as per HPI Musc Reports no additional complaints Skin/Breast Reports system reviewed and no additional complaints, except as documented Neuro Reports no additional complaints Psych Reports no additional complaints Endo Reports no additional complaints Lenin/Lymph Reports no additional complaints Aller/Immun Reports no additional complaints Telehealth Telehealth Telehealth Platform: Telephone Location of provider rendering services: practice address Location of patient: address on file Patient Identification confirmed using: Name, : Yes Telehealth method: voice only Patient verbally consented to treatment: Yes Patient verbally consented to billing insurance company: Yes Patient informed of any privacy concerns related to visit: Yes Minutes spent on Phone/Video with Pt.: 14 Results Reviewed Results Reviewed: Date of Service: 12/02/24 CLINICAL HISTORY: left sided abdominal pain, rectal bleeding CT abdomen and pelvis with contrast Comparison: CT of the abdomen and pelvis from 11/21/2023 Findings: Mild bibasilar atelectasis/pneumonitis with respiratory motion artifacts. Mild fat deposition of the liver. No significant change in small cystic lesions of the liver and imaged kidneys accounting for differences in artifacts. The adrenal glands are normal. The spleen is nonenlarged. Pancreas and gallbladder are unremarkable accounting for artifacts. Calcified and noncalcified plaque including the imaged aorta and its branches. Small mesenteric lymph nodes are likely reactive. No small bowel obstruction. Moderate to severe stool burden present, including the cecum. The appendix is not definitively seen. Wall thickening of the large intestine concerning for colitis, particularly involving the descending colon in the sigmoid colon given adjacent fluid and stranding. Soft tissue of the left inguinal ring is nonspecific and may reflect left testicle. Prostate gland measures 4.5 cm transverse. New moderate wall thickening of the urinary bladder is nonspecific and may reflect cystitis. No significant change in posterior instrumentation of the L5-S1. No hardware loosening by CT. Adjacent segment change including facet arthropathy. Additional facet arthropathy noted. IMPRESSION: 1. Wall thickening of the large intestine concerning for colitis, including descending colon and sigmoid colon. 2. Moderate wall thickening of the urinary bladder. Date of Service: 10/27/24 EXAMINATION: US RETROPERITONEUM HISTORY: R35.0 - Frequency of micturition TECHNIQUE: Real-time grayscale ultrasound imaging of the kidneys was performed and images were reviewed. COMPARISON: Correlation is made with an abdominal ultrasound dated 01/09/2024. FINDINGS: Right kidney: The right kidney measures 9.6 x 5.1 x 6.0 cm. Renal parenchymal echotexture and thickness are normal. There are no masses. There is a probable small extrarenal pelvis. There is no hydronephrosis or renal calculi. Left Kidney: The left kidney measures 9.2 x 5.1 x 4.5 cm. Renal parenchymal echotexture and thickness are normal. There are no masses. There is no hydronephrosis or renal calculi. The urinary bladder is unremarkable. Bilateral ureteral jets are identified. Before voiding, the urinary bladder measured 12.5 x 8.7 x 9.2 cm, for an estimated volume of 522 mL. After voiding, the urinary bladder measured 4.7 x 3.9 x 4.6 cm, for an estimated volume of 44 mL. The prostate measures 3.2 x 2.3 x 3.9 cm. IMPRESSION: Unremarkable renal ultrasound. Post void bladder residual of 44 mL. Date of Service: 11/21/23 EXAMINATION: CT ABDOMEN AND PELVIS WITH CONTRAST CLINICAL INFORMATION: Severe abdominal pain and tenderness COMPARISON: None available. TECHNIQUE: Multidetector volumetric images were obtained from the superior aspect of the liver through the pubic symphysis following administration 100 mL of Omnipaque 350 intravenous contrast. Sagittal and coronal reformatted images were obtained on the technologist's workstation. Oral contrast: No This CT examination was performed using dose optimization techniques as appropriate, variously including the following: *Automated exposure control *Adjustment of mA and/or kV according to patient size (this includes techniques or standardized protocols for targeted exams where dose is matched to indication/reason for exam; i.e. extremities or head) *Use of iterative reconstruction technique DLP: 355 mGy-cm FINDINGS: LUNG BASES: The visualized lung bases are unremarkable. LIVER, GALLBLADDER, AND BILIARY TREE: The liver is normal in size, shape, and attenuation. No focal hepatic lesion or biliary ductal dilatation is present. The gallbladder has a serpiginous phrygian cap but is otherwise unremarkable with no evidence of radiopaque gallstones, gallbladder wall thickening, or obvious pericholecystic inflammatory changes. PANCREAS: Unremarkable. SPLEEN: Unremarkable. ADRENAL GLANDS: Unremarkable. KIDNEYS AND URETERS: The kidneys are normal in size, shape, and attenuation. No hydronephrosis, hydroureter, or calculi seen. No perinephric stranding. BLADDER: Unremarkable. GASTROINTESTINAL TRACT: The small and large bowel are unremarkable. The appendix is unremarkable. ABDOMINAL WALL: Bilateral small inguinal hernias are seen containing fat, left greater than right. LYMPH NODES: No retroperitoneal lymphadenopathy seen. VASCULAR: Calcific and noncalcific plaque present in the infrarenal aorta without aneurysm or dissection. PELVIC VISCERA: There is moderate BPH. Seminal vesicles appear normal. OSSEOUS STRUCTURES: Unremarkable. Posterior fusion present at L5-S1. IMPRESSION: 1. A cause for the patient's severe abdominal pain and tenderness has not been found. 2. Incidental note made of BPH and bilateral inguinal hernias containing only fat. Assessment & Plan Assessment & Plan (1) Low testosterone: Code(s): R79.89 - Other specified abnormal findings of blood chemistry Category: Medical (2) Erectile dysfunction: Code(s): N52.9 - Male erectile dysfunction, unspecified Category: Medical (3) Urinary frequency: Code(s): R35.0 - Frequency of micturition Category: Medical Plan vesicare 5 mg qhs Medications: New solifenacin (Vesicare) 5 mg PO BEDTIME 30 tabs 3RF Patient Instructions: The patient had an opportunity to ask questions regarding treatment plan. The patient expressed understanding and agreement with the above treatment plan. The patient is aware they should contact our office by phone for worsening of their current condition or the appearance of new symptoms. Compliance is encouraged with any medications and followup testing that is ordered. It is a privilege to be allowed the opportunity to participate in the urologic care of your patient. If you have any questions or concerns regarding treatment for the above conditions please do not hesitate to contact me. The office telephone contact is [phone]. This note is constructed in part using voice recognition software. While every effort has been made to ensure accuracy supervisor of operations errors may have been included. Yours sincerely, Rita Edwards MD Coding Level of Care Code Tele Est Pt Level 4 (03249) Diagnoses Low testosterone R79.89 Erectile dysfunction N52.9 Urinary frequency R35.0
--- OUTSIDE RECORDS SUMMARY | 2024-12-16 15:59 | XMS_ITS | Encounter Summary ---
Author Organization [employer] Address [address] 7t [place] [address] Care Team Providers Care Snow Technician Name Role Phone Mely Vasquez MD Primary Care Provider [phone] Reason for Visit * Reason Onset Date Comments Med Refill 03/20/2024 Encounter Details Date Type Department Care Team ([facility] st Contact Info) Description 03/20/2024 Telephone [facility] MEDICINE 230 [place], [place] [phone] Mely Vasquez MD 230 [place], [place] [phone] Med Refill Social History Tobacco Use Types [...] immediate release tablet To be sent to: [facility]/pharmacy #[address] [place] [address] documented in this encounter Plan of Treatment Upcoming Encounters Date Type Department Care Team (Late st Contact Info) Description 12/29/2024 1:15 PM EDT Office Visit [facility] MEDICINE 230 [place] [address] Mely Vasquez MD 230 [place] [address] 01/06/2025 3:15 PM EDT Clinical Support [facility] MED & PEDS 505 [place] [address] Liset Cage, APARNA 505 [place] [address] documented as of this encounter Visit Diagnoses Not on filedocumented in this encounter Additional Health Concerns Assessment Noted Time PHQ-9 Depression Total Score: 0 02/27/20 3:09 PM EDT documented as of this encounter Care Teams Snow Technician Relationship Specialty Start Date End Date Mely Vasquez MD [address] [place] [address] PCP - General Family Medicine 05/11/21 documented as of this encounter
--- OUTSIDE RECORDS SUMMARY | 2024-12-16 15:59 | XMS_ITS | Encounter Summary ---
Author Organization [employer] Address [address] [facility] 7t [place] [address] Care Team Providers Care Paper Guillotine Operator Name Role Phone Mely Vasquez MD Primary Care Provider [phone] Reason for Visit * Reason Onset Date Comments Appointment Request 01/31/2023 Encounter Details Date Type Department Care Team (Late st Contact Info) Description 01/31/2023 Telephone [facility] MEDICINE [address] [place] [address] Mely Vasquez MD [address] [place] [address] Appointment Request Social History Tobacco Use Types [...] from pt requesting to r/s appt from [employer] SUPPORT MANAGER on 02/04/2023 due to being out of state. Please contact pt at [phone] documented in this encounter Plan of Treatment Upcoming Encounters Date Type Department Care Team (Late st Contact Info) Description 12/29/2024 1:15 PM EDT Office Visit [facility] MEDICINE 230 [place] [address] Mely Vasquez MD 230 [place] [address] 01/06/2025 3:15 PM EDT Clinical Support [facility] MED & PEDS 505 [place] [address] Liset Cage, RN 505 [place] [address] documented as of this encounter Visit Diagnoses Not on filedocumented in this encounter Care Teams Paper Guillotine Operator Relationship Specialty Start Date End Date Mely Vasquez MD [address] [place] [address] PCP - General Family Medicine 05/11/21 documented as of this encounter
--- OUTSIDE RECORDS SUMMARY | 2024-12-16 15:59 | XMS_ITS | Encounter Summary ---
Author Organization [employer] Address [address] 7t [place] [address] Care Team Providers Care Laboratory Equipment Installer Name Role Phone Mely Vasquez MD Primary Care Provider [phone] Reason for Visit * Reason Onset Date Comments Med Refill 06/09/2024 Encounter Details Date Type Department Care Team ([facility] st Contact Info) Description 06/09/2024 Telephone [facility] MEDICINE 230 [place], [place] [phone] Mely Vasquez MD 230 [place], [place] [phone] Med Refill Social History Tobacco Use Types [...] release tablet To be sent to: [facility]/pharmacy #[id number] [place] [address] documented in this encounter Plan of Treatment Upcoming Encounters Date Type Department Care Team (Late st Contact Info) Description 12/29/2024 1:15 PM EDT Office Visit [facility] MEDICINE 230 [place] [address] Mely Vasquez MD 230 [place] [address] 01/06/2025 3:15 PM EDT Clinical Support [facility] CHC MED & PEDS 505 [place] [address] Liset Cage, APARNA 505 [place] [address] documented as of this encounter Visit Diagnoses Not on filedocumented in this encounter Additional Health Concerns Assessment Noted Time PHQ-9 Depression Total Score: 0 02/27/20 23 3:09 PM EDT documented as of this encounter Care Teams Laboratory Equipment Installer Relationship Specialty Start Date End Date Mely Vasquez MD [address] [place] [address] PCP - General Family Medicine 05/11/21 documented as of this encounter
--- OUTSIDE RECORDS SUMMARY | 2024-12-16 15:59 | XMS_ITS | Encounter Summary ---
Author Organization [employer] Address [address] 7t [place] [address] Care Team Providers Care Coke Crusher Operator Name Role Phone Mely Vasquez MD Primary Care Provider [phone] Reason for Visit * Reason Onset Date Comments Appointment Request 11/19/2024 Encounter Details Date Type Department Care Team ([facility] Contact Info) Description 11/19/2024 Telephone [facility] MEDICINE 230 [place], [place] [phone] Mely Vasquez MD 230 [place], [place] [phone] Appointment Request Social History Tobacco Use Types [...] RV DM / BP Contact pt at [phone] documented in this encounter Plan of Treatment Upcoming Encounters Date Type Department Care Team (Late st Contact Info) Description 12/29/2024 1:15 PM EDT Office Visit [facility] MEDICINE 230 [place] [address] Mely Vasquez MD 230 [place] [address] 01/06/2025 3:15 PM EDT Clinical Support [facility] CH[facility] MED & PEDS 505 [place] [address] Liset Cage, APARNA 505 [place] [address] documented as of this encounter Visit Diagnoses Not on filedocumented in this encounter Additional Health Concerns Assessment Noted Time PHQ-9 Depression Total Score: 0 02/27/20 23 3:09 PM EDT documented as of this encounter Care Teams Coke Crusher Operator Relationship Specialty Start Date End Date Mely Vasquez MD [address] [place] [address] PCP - General Family Medicine 05/11/21 documented as of this encounter
--- OUTSIDE RECORDS SUMMARY | 2024-12-16 15:59 | XMS_ITS | Encounter Summary ---
Author Organization [employer] Address [address] 7t [place] [address] Care Team Providers Care Crown Buffer Name Role Phone Mely Vasquez MD Primary Care Provider [phone] Reason for Visit * Reason Onset Date Comments Prior Auth DME 11/26/2024 Encounter Details Date Type Department Care Team ([facility] st Contact Info) Description 11/26/2024 Telephone [facility] MEDICINE 230 [place], [place] [phone] Mely Vasquez MD 230 [place], [place] [phone] Prior Auth DME Social History Tobacco Use [...] Commode If any questions contact pt at [phone] documented in this encounter Plan of Treatment Upcoming Encounters Date Type Department Care Team (Late st Contact Info) Description 12/29/2024 1:15 PM EDT Office Visit [facility] MEDICINE 230 [place] [address] Mely Vasquez MD 230 [place] [address] 01/06/2025 3:15 PM EDT Clinical Support [facility] CHC MED & PEDS 505 [place] [address] Liset Cage, APARNA 505 [place] [address] documented as of this encounter Visit Diagnoses Not on filedocumented in this encounter Additional Health Concerns Assessment Noted Time PHQ-9 Depression Total Score: 0 02/27/20 23 3:09 PM EDT documented as of this encounter Care Teams Crown Buffer Relationship Specialty Start Date End Date Mely Vasquez MD [address] [place] [address] PCP - General Family Medicine 05/11/21 documented as of this encounter
--- OUTSIDE RECORDS SUMMARY | 2024-12-16 15:59 | XMS_ITS | Encounter Summary ---
Author Organization [employer] Address [address] 7t [place] [address] Care Team Providers Care Stack Supervisor Name Role Phone Mely Vasquez MD Primary Care Provider Reason for Visit * Reason Onset Date Comments Med Refill 04/16/2024 Encounter Details Date Type Department Care Team ([facility] st Contact Info) Description 04/16/2024 Telephone [facility] MEDICINE 230 [place], [place] [phone] Mely Vasquez MD 230 [place], [place] [phone] Med Refill Social History Tobacco Use Types [...] Description 12/29/2024 1:15 PM EDT Office Visit [facility] MEDICINE 230 [place] [address] Mely Vasquez MD 230 [place] [address] 01/06/2025 3:15 PM EDT Clinical Support [facility] CHC MED & PEDS 505 [place] [address] Liset Cage, APARNA 505 [place] [address] documented as of this encounter Visit Diagnoses Not on filedocumented in this encounter Additional Health Concerns Assessment Noted Time PHQ-9 Depression Total Score: 0 02/27/20 3:09 PM EDT documented as of this encounter Care Teams Stack Supervisor Relationship Specialty Start Date End Date Mely Vasquez MD [address] [place] [address] PCP - General Family Medicine 05/11/21 documented as of this encounter
--- OUTSIDE RECORDS SUMMARY | 2024-12-16 15:59 | XMS_ITS | Encounter Summary ---
Author Organization [employer] Address [address] [facility] [address] 7t [place] [address] Care Team Providers Care Leather Stitcher Name Role Phone Mely Vasquez MD Primary Care Provider [phone] Reason for Visit * Reason Comments Med Refill Encounter Details Date Type Department Care Team ([facility] st Contact Info) Description 04/26/2024 Refill [facility] MEDICINE 230 [place], [place] [phone] Mely Vasquez MD 230 [place], [place] [phone] Chronic rhinosinusitis; Chronic sinusitis, unspecified location Social [...] 1:15 PM EDT Office Visit [facility] MEDICINE 230 [place] [address] Mely Vasquez MD 230 [place] [address] 01/06/2025 3:15 PM EDT Clinical Support [facility] CHC MED & PEDS 505 [place] [address] Liset Cage, APARNA 505 [place] [address] documented as of this encounter Visit Diagnoses Diagnosis Chronic rhinosinusitis Unspecified sinusitis (chronic) Chronic sinusitis, unspecified location documented in this encounter Additional Health Concerns Assessment Noted Time PHQ-9 Depression Total Score: 0 02/27/20 23 3:09 PM EDT documented as of this encounter Care Teams Leather Stitcher Relationship Specialty Start Date End Date Mely Vasquez MD [address] [place] [address] PCP - General Family Medicine 05/11/21 documented as of this encounter
--- OUTSIDE RECORDS SUMMARY | 2024-12-16 15:59 | XMS_ITS | Encounter Summary ---
Author Organization [employer] Address [address] 7t [place] [address] Care Team Providers Care Security Consultant Name Role Phone Mely Vasquez MD Primary Care Provider [phone] Reason for Visit * Reason Onset Date Comments Med Refill 05/21/2023 Encounter Details Date Type Department Care Team ([facility] st Contact Info) Description 05/21/[address] [facility] MEDICINE 230 [place], [place] [phone] Mely Vasquez MD 230 [place], [place] [phone] Med Refill Social History Tobacco Use Types [...] immediate release tablet, pt stated went to [facility] and the store has 40, pt is requesting order of 44 to be send [facility]. documented in this encounter Plan of Treatment Upcoming Encounters Date Type Department Care Team (Late st Contact Info) Description 12/29/2024 1:15 PM EDT Office Visit [facility] MEDICINE [address] [place] [address] Mely Vasquez MD 230 [place] [address] 01/06/2025 3:15 PM EDT Clinical Support [facility] CHC MED & PEDS 505 [place] [address] Liset Cage, APARNA 505 [place] [address] documented as of this encounter Visit Diagnoses Not on filedocumented in this encounter Additional Health Concerns Assessment Noted Time PHQ-9 Depression Total Score: 0 02/27/20 23 3:09 PM EDT documented as of this encounter Care Teams Security Consultant Relationship Specialty Start Date End Date Mely Vasquez MD [address] [place] [address], [place] [address] PCP - General Family Medicine 05/11/21 documented as of this encounter
--- OUTSIDE RECORDS SUMMARY | 2024-12-16 15:59 | XMS_ITS | Encounter Summary ---
Author Organization [employer] Address [address] [facility] [address] [facility] [address] [address] 7t [place] [address] Care Team Providers Care Director Intelligence Analysis Programs Name Role Phone Mely Vasquez MD Primary Care Provider [phone] Reason for Visit * Reason Onset Date Comments FYI 05/15/2023 Encounter Details Date Type Department Care Team ([facility] Contact Info) Description 05/15/2023 Telephone [facility] MEDICINE 230 [place], [place] [phone] Mely Vasquez MD 230 [place], [place] [phone] FYI Social History Tobacco Use Types Packs/Day [...] pt got an appt for 05/24/2023 at [facility] for lumbar pain. documented in this encounter Plan of Treatment Upcoming Encounters Date Type Department Care Team (Late st Contact Info) Description 12/29/2024 1:15 PM EDT Office Visit [facility] MEDICINE 230 [place] [address] Mely Vasquez MD 230 [place] [address] 01/06/2025 3:15 PM EDT Clinical Support [facility] MED & PEDS 505 [place] [address] Liset Cage, APARNA 505 [place] [address] documented as of this encounter Visit Diagnoses Not on filedocumented in this encounter Additional Health Concerns Assessment Noted Time PHQ-9 Depression Total Score: 0 02/27/20 23 3:09 PM EDT documented as of this encounter Care Teams Director Intelligence Analysis Programs Relationship Specialty Start Date End Date Mely Vasquez MD [address] [place] [address] PCP - General Family Medicine 05/11/21 documented as of this encounter
--- OUTSIDE RECORDS SUMMARY | 2024-12-16 15:59 | XMS_ITS | Encounter Summary ---
Author Organization [employer] Address [address] 7t [place] [address] Care Team Providers Care General Lot Attendant Name Role Phone Mely Vasquez MD Primary Care Provider [phone] Reason for Visit * Reason Onset Date Comments Med Refill 12/14/2024 Encounter Details Date Type Department Care Team ([facility] Contact Info) Description 12/14/2024 Refill [facility] CHC MED & PEDS 505 [place] [address] Liset Cage RN 505 [place] [address] Lumbar disc disease Social History Tobacco Use [...] 1:15 PM EDT Office Visit [facility] MEDICINE 230 [place] [address] Mely Vasquez MD 230 [place] [address] 01/06/2025 3:15 PM EDT Clinical Support [facility] CHC MED & PEDS 505 [place] [address] Liset Cage, RN 505 [place] [address] documented as of this encounter Visit Diagnoses Diagnosis Lumbar disc disease Other and unspecified disc disorder of lumbar region documented in this encounter Additional Health Concerns Assessment Noted Time PHQ-9 Depression Total Score: 0 02/27/20 23 3:09 PM EDT documented as of this encounter Care Teams General Lot Attendant Relationship Specialty Start Date End Date Mely Vasquez MD [address] [place] [address] PCP - General Family Medicine 05/11/21 documented as of this encounter
--- OUTSIDE RECORDS SUMMARY | 2024-12-16 15:59 | XMS_ITS | Clinical Summary ---
Author Organization [employer] [facility] Address [address] [place] [address] Care Team Providers Care Analyzer Sales Name Role Phone Unavailable Primary Care Provider [...]
--- OUTSIDE RECORDS SUMMARY | 2024-12-16 15:59 | XMS_ITS | Encounter Summary ---
Author Organization [employer] Address [address] [facility] 7t [place] [address] Care Team Providers Care Administrative Services Specialist Name Role Phone Mely Vasquez MD Primary Care Provider [phone] Reason for Visit * Reason Onset Date Comments Med Refill 01/28/2024 Encounter Details Date Type Department Care Team ([facility] st Contact Info) Description 01/28/2024 Telephone [facility] MEDICINE 230 [place], [place] [phone] Mely Vasquez MD 230 [place], [place] [phone] Med Refill Social History Tobacco Use Types [...] release tablet To be sent to: [facility]/pharmacy #[id number] [place] [address] documented in this encounter Plan of Treatment Upcoming Encounters Date Type Department Care Team (Late st Contact Info) Description 12/29/2024 1:15 PM EDT Office Visit [facility] MEDICINE [address] [place] [address] Mely Vasquez MD 230 [place] [address] 01/06/2025 3:15 PM EDT Clinical Support [facility] CHC MED & PEDS 505 [place] [address] Liset Cage, APARNA 505 [place] [address] documented as of this encounter Visit Diagnoses Not on filedocumented in this encounter Additional Health Concerns Assessment Noted Time PHQ-9 Depression Total Score: 0 02/27/20 23 3:09 PM EDT documented as of this encounter Care Teams Administrative Services Specialist Relationship Specialty Start Date End Date Mely Vasquez MD [address] [place] [address] PCP - General Family Medicine 05/11/21 documented as of this encounter
--- OUTSIDE RECORDS SUMMARY | 2024-12-16 15:59 | XMS_ITS | Encounter Summary ---
Author Organization [employer] Address [address] 7t [place] [address] Care Team Providers Care Reading Intervention Teacher Name Role Phone Mely Vasquez MD Primary Care Provider [phone] Reason for Visit * Reason Onset Date Comments Med Refill 10/21/2024 Encounter Details Date Type Department Care Team ([facility] st Contact Info) Description 10/21/2024 Telephone [facility] MEDICINE 230 [place], [place] [phone] Mely Vasquez MD 230 [place], [place] [phone] Med Refill Social History Tobacco Use Types [...] tablet To be sent to: [facility]/pharmacy #[address] [place] [address] documented in this encounter Plan of Treatment Upcoming Encounters Date Type Department Care Team (Late st Contact Info) Description 12/29/2024 1:15 PM EDT Office Visit [facility] MEDICINE 230 [place] [address] Mely Vasquez MD 230 [place] [address] 01/06/2025 3:15 PM EDT Clinical Support [facility] CHC MED & PEDS 505 [place] [address] Liset Cage, APARNA 505 [place] [address] documented as of this encounter Visit Diagnoses Not on filedocumented in this encounter Additional Health Concerns Assessment Noted Time PHQ-9 Depression Total Score: 0 02/27/20 23 3:09 PM EDT documented as of this encounter Care Teams Reading Intervention Teacher Relationship Specialty Start Date End Date Mely Vasquez MD [address] [place] [address] PCP - General Family Medicine 05/11/21 documented as of this encounter
--- OUTSIDE RECORDS SUMMARY | 2024-12-16 15:59 | XMS_ITS | Encounter Summary ---
Author Organization [employer] Address [address] 7t [place] [address] Care Team Providers Care Warehouse Freight Handler Name Role Phone Mely Vasquez MD Primary Care Provider [phone] Reason for Visit * Reason Onset Date Comments Med Refill 01/02/2024 Encounter Details Date Type Department Care Team ([facility] st Contact Info) Description 01/02/2024 Telephone [facility] MEDICINE 230 [place], [place] [phone] Mely Vasquez MD 230 [place], [place] [phone] Med Refill Social History Tobacco Use Types [...] immediate release tablet To be sent to: [facility]/PHARMACY #[id number] [place] [address] documented in this encounter Plan of Treatment Upcoming Encounters Date Type Department Care Team (Late st Contact Info) Description 12/29/2024 1:15 PM EDT Office Visit [facility] MEDICINE 230 [place] [address] Mely Vasquez MD 230 [place] [address] 01/06/2025 3:15 PM EDT Clinical Support [facility] CH[facility] MED & PEDS 505 [place] [address] Liset Cage, APARNA 505 [place] [address] documented as of this encounter Visit Diagnoses Not on filedocumented in this encounter Additional Health Concerns Assessment Noted Time PHQ-9 Depression Total Score: 0 02/27/20 3:09 PM EDT documented as of this encounter Care Teams Warehouse Freight Handler Relationship Specialty Start Date End Date Mely Vasquez MD [address] [place] [address] PCP - General Family Medicine 05/11/21 documented as of this encounter
--- OUTSIDE RECORDS SUMMARY | 2024-12-16 15:59 | XMS_ITS | Encounter Summary ---
Author Organization [employer] Address [address] 7t [place] [address] Care Team Providers Care Aerial Lineman Name Role Phone Mely Vasquez MD Primary Care Provider [phone] Reason for Visit * Reason Onset Date Comments Med Refill 02/24/2024 Encounter Details Date Type Department Care Team ([facility] st Contact Info) Description 02/24/2024 Telephone [facility] MEDICINE 230 [place], [place] [phone] Mely Vasquez MD 230 [place], [place] [phone] Med Refill Social History Tobacco Use Types [...] immediate release tablet To be sent to: [facility]/pharmacy #[id number] [place] [address] documented in this encounter Plan of Treatment Upcoming Encounters Date Type Department Care Team (Late st Contact Info) Description 12/29/2024 1:15 PM EDT Office Visit [facility] MEDICINE 230 [place] [address] Mely Vasquez MD 230 [place] [address] 01/06/2025 3:15 PM EDT Clinical Support [facility] MED & PEDS 505 [place] [address] Liset Cage, RN 505 [place] [address] documented as of this encounter Visit Diagnoses Not on filedocumented in this encounter Additional Health Concerns Assessment Noted Time PHQ-9 Depression Total Score: 0 02/27/20 23 3:09 PM EDT documented as of this encounter Care Teams Aerial Lineman Relationship Specialty Start Date End Date Mely Vasquez MD 230 [place] [address] PCP - General Family Medicine 05/11/21 documented as of this encounter
--- OUTSIDE RECORDS SUMMARY | 2024-12-16 15:59 | XMS_ITS | Encounter Summary ---
Author Organization [employer] Address [address] [place] [address] Care Team Providers Care Military Technician Name Role Phone Mely Vasquez MD Primary Care Provider [phone] Reason for Visit * Reason Onset Date Comments Reschedule 12/04/2023 Encounter Details Date Type Department Care Team ([facility] st Contact Info) Description 12/04/2023 Telephone [facility] [address] [place], [place] [phone] Mely Vasquez MD [address] [place], [place] [phone] Reschedule Social History Tobacco Use Types Packs/Day [...] AM EDT Tc from pt requesting r/s OPERATOR CAVITY [employer]MP appt documented in this encounter Plan of Treatment Upcoming Encounters Date Type Department Care Team (Late st Contact Info) Description 12/29/2024 1:15 PM EDT Office Visit [facility] [address] [place] [address] Mely Vasquez MD [address] [place] [address] 01/06/2025 3:15 PM EDT Clinical Support [facility] [address] [place] [address] Liset Cage, APARNA 505 [place] [address] documented as of this encounter Visit Diagnoses Not on filedocumented in this encounter Additional Health Concerns Assessment Noted Time PHQ-9 Depression Total Score: 0 02/27/20 23 3:09 PM EDT documented as of this encounter Care Teams Military Technician Relationship Specialty Start Date End Date Mely Vasquez MD [address] [place] [address] PCP - General Family Medicine 05/11/21 documented as of this encounter
--- OUTSIDE RECORDS SUMMARY | 2024-12-16 15:59 | XMS_ITS | Encounter Summary ---
Author Organization [employer] Address [address] [place] [address] Care Team Providers Care Varnisher Apprentice Name Role Phone Mely Vasquez MD Primary Care Provider [phone] Reason for Visit * Reason Onset Date Comments ER Follow-up 12/10/2024 Nurse Triage 12/10/2024 Encounter Details Date Type Department Care Team ([facility] st Contact Info) Description 12/10/2024 Telephone [facility] MEDICINE [address] [place], [place] [phone] Mely Vasquez MD [address] [place], [place] [phone] ER Follow-up; Nurse Triage Social History Tobacco Use Types Packs/Day Years [...] encounter Miscellaneous Notes * Telephone Encounter - Zora Whitley RN - 12/10/2024 9:28 AM EDT Per GI note from 12/04/24 He started having rectal bleeding again, and he presented to the ER and hehad colitis. With review of the CT it appears that it was diverticulitis. The ER put him on augementin. He was feeling better yesterday, but is more bloated today. . The CT also him to be full of stool, so I think that his senna a 1 a night is not doing well enough. Since he has loose stools taking 2 a night, I recommend that he do 1 qhs alt with 2qhs. He could not swallow the 40mg o2o capsule, so he was using his 's 20mg one. I will change him to pantoprazole 40m gbid as this is a smaller tablet. Per pt GI MD sent metronidazole and levofloxacin to pharmacy. Pt had bloody stools yesterday. Per pt water in toilet was red. Pt was having abdominal pain. Per pt no rectal pain. No bloody stools this morning. Pt advised of disposition, declines team appt next week. States will follow GI recommendations and complete new abx. Pt advised to return to ER if bleeding becomes severe , severe abd pain or rectal pain. Pt agrees. Has upcoming GI appt on 12/25/2024. Sent to PCP as FYI Protocol Used: Rectal Bleeding (Adult) Protocol-Based Disposition: See in Office or Video Visit Today Override (Final) Disposition: Refer to Specialist Override Reason: Already seen and questions Positive Triage Question: * Moderate rectal bleeding (small blood clots, passing blood without stool, or toilet water turns red) * All higher-acuity triage questions were negative Care Advice Discussed: * Reassurance and Education - Mild Rectal Bleeding * High Fiber Diet * Reasons To Call Back - Bleeding increases in amount - You become worse * Telephone Encounter - Kami Serrano - 12/10/2024 8:37 AM EDT Patient calling to report ED visit on : Date: 12/03 Hospital: [facility] Seen for: Gastro-esophageal reflux disease, Constipation Symptomatic Yes *if yes message should go to Triage Patient advised will forward to team nurse for follow up Symptoms: Pain - Severe, Diarrhea Outcome: Talk to a nurse or provider within 15 minutes Reason: Blood in the diarrhea The caller accepted this outcome. [phone] documented in this encounter Plan of Treatment Upcoming Encounters Date Type Department Care Team (Late st Contact Info) Description 12/29/2024 1:15 PM EDT Office Visit [facility] MEDICINE [address] [place] [address] Mely Vasquez MD [address] [place] [address] 01/06/2025 3:15 PM EDT Clinical Support [facility] MED & PEDS 505 [place] [address] Liset Cage, APARNA 505 [place] [address] documented as of this encounter Visit Diagnoses Not on filedocumented in this encounter Additional Health Concerns Assessment Noted Time PHQ-9 Depression Total Score: 0 02/27/20 23 3:09 PM EDT documented as of this encounter Care Teams Varnisher Apprentice Relationship Specialty Start Date End Date Mely Vasquez MD [address] [place] [address] PCP - General Family Medicine 05/11/21 documented as of this encounter
--- OUTSIDE RECORDS SUMMARY | 2024-12-16 15:59 | XMS_ITS | Encounter Summary ---
Author Organization [employer] Address [address] [facility] 7t [place] [address] Care Team Providers Care Final Expense Agent Name Role Phone Mely Vasquez MD Primary Care Provider Reason for Visit * Reason Onset Date Comments Med Refill 04/22/2023 Encounter Details Date Type Department Care Team ([facility] st Contact Info) Description 04/22/2023 Telephone [facility] MEDICINE [address] [place] [address] Mely Vasquez MD [address] [place], [place] [phone] Med Refill Social History Tobacco Use Types [...] Description 12/29/2024 1:15 PM EDT Office Visit [facility] MEDICINE [address] [place] [address] Mely Vasquez MD [address] [place] [address] 01/06/2025 3:15 PM EDT Clinical Support [facility] MED & PEDS 505 [place], [place] [phone] Liset Cage, APARNA 505 [place], [place] [phone] documented as of this encounter Visit Diagnoses Not on filedocumented in this encounter Additional Health Concerns Assessment Noted Time PHQ-9 Depression Total Score: 0 02/27/20 23 3:09 PM EDT documented as of this encounter Care Teams Final Expense Agent Relationship Specialty Start Date End Date Mely Vasquez MD [address] [place] [address] PCP - General Family Medicine 05/11/21 documented as of this encounter
--- OUTSIDE RECORDS SUMMARY | 2024-12-16 15:59 | XMS_ITS | Encounter Summary ---
Author Organization [employer] Address [address] [facility] 7t [place] [address] Care Team Providers Care Ornamental Metal Worker Apprentice Name Role Phone Mely Vasquez MD Primary Care Provider [phone] Reason for Visit * Reason Onset Date Comments Med Refill 06/26/2023 Encounter Details Date Type Department Care Team ([facility] st Contact Info) Description 06/26/2023 Refill [facility] MEDICINE [address] [place], [place] [phone] Mely Vasquez MD 230 [place], [place] [phone] Lumbar disc disease Social History Tobacco Use [...] (Roxicodone) 15 MG immediate release tablet [facility] [place] [address] - [address] [place] [address] documented in this encounter Plan of Treatment Upcoming Encounters Date Type Department Care Team (Late st Contact Info) Description 12/29/2024 1:15 PM EDT Office Visit [facility] MEDICINE [address] [place] [address] Mely Vasquez MD 230 [place] [address] 01/06/2025 3:15 PM EDT Clinical Support [facility] MED & PEDS 505 [place] [address] Liset Cage, APARNA 505 [place] [address] documented as of this encounter Visit Diagnoses Diagnosis Lumbar disc disease Other and unspecified disc disorder of lumbar region documented in this encounter Additional Health Concerns Assessment Noted Time PHQ-9 Depression Total Score: 0 02/27/20 23 3:09 PM EDT documented as of this encounter Care Teams Ornamental Metal Worker Apprentice Relationship Specialty Start Date End Date Mely Vasquez MD [address] [place] [address] PCP - General Family Medicine 05/11/21 documented as of this encounter
--- OUTSIDE RECORDS SUMMARY | 2024-12-16 15:59 | XMS_ITS | Encounter Summary ---
Author Organization [employer] Address [address] [place] [address] Care Team Providers Care Surgical Elastic Knitter Name Role Phone Mely Vasquez MD Primary Care Provider [phone] Reason for Visit * Reason Onset Date Comments Durable Medical Equipment 03/23/2024 Encounter Details Date Type Department Care Team ([facility] st Contact Info) Description 03/23/2024 Telephone [facility] MEDICINE 230 [place], [place] [phone] Mely Vasquez MD [address] [place], [place] [phone] Durable Medical Equipment Social History Tobacco Use [...] Office Visit [facility] MEDICINE [address] [place] [address] Mely Vasquez MD [address] [place] [address] 01/06/2025 3:15 PM EDT Clinical Support [facility] MED [facility] PEDS 505 [place] [address] Liset Cage RN [address] [place] [address] documented as of this encounter Visit Diagnoses Not on filedocumented in this encounter Additional Health Concerns Assessment Noted Time PHQ-9 Depression Total Score: 0 02/27/20 3:09 PM EDT documented as of this encounter Care Teams Surgical Elastic Knitter Relationship Specialty Start Date End Date Mely Vasquez MD [address] [place] [address] PCP - General Family Medicine 05/11/21 documented as of this encounter
--- OUTSIDE RECORDS SUMMARY | 2024-12-16 15:59 | XMS_ITS | Encounter Summary ---
Author Organization [employer] Address [address] 7t [place] [address] Care Team Providers Care Continuous Mining Machine Operator Name Role Phone Mely Vasquez MD Primary Care Provider [phone] Reason for Visit * Reason Onset Date Comments Med Refill 01/01/2024 Encounter Details Date Type Department Care Team ([facility] st Contact Info) Description 01/01/2024 Telephone [facility] MEDICINE 230 [place], [place] [phone] Mely Vasquez MD 230 [place], [place] [phone] Med Refill Social History Tobacco Use Types [...] immediate release tablet To be sent to: [facility]/pharmacy #[id number] [place] [address] documented in this encounter Plan of Treatment Upcoming Encounters Date Type Department Care Team (Late st Contact Info) Description 12/29/2024 1:15 PM EDT Office Visit [facility] MEDICINE [address] [place] [address] Mely Vasquez MD 230 [place] [address] 01/06/2025 3:15 PM EDT Clinical Support [facility] MED [facility] PEDS 505 [place] [address] Liset Cage, APARNA 505 [place] [address] documented as of this encounter Visit Diagnoses Not on filedocumented in this encounter Additional Health Concerns Assessment Noted Time PHQ-9 Depression Total Score: 0 02/27/20 23 3:09 PM EDT documented as of this encounter Care Teams Continuous Mining Machine Operator Relationship Specialty Start Date End Date Mely Vasquez MD [address] [place] [address] PCP - General Family Medicine 05/11/21 documented as of this encounter
--- OUTSIDE RECORDS SUMMARY | 2024-12-16 15:59 | XMS_ITS | Encounter Summary ---
Author Organization [employer] Address [address] [facility] 7t [place] [address] Care Team Providers Care Rubber Gasket Inspector Trimmer Name Role Phone Mely Vasquez MD Primary Care Provider [phone] Reason for Referral * Consultation (Routine) - Closed Specialty Diagnoses / Procedures Referred By Micheal mueller Referred To Contact Urology Diagnoses Benign prostatic hyperplasia, unspecified whether lower urinary tract symptoms present Mely Vasquez MD [address] [place] [address] Phone: tel: fax: [facility] Referral ID Status Reason Start Date Expiration Date V isits Requested Visits Authorized [id number] Closed Specialty Services Required 11/22/2023 11/21/2024 1 1 Encounter Details Date Type Department Care Team (Late st Contact Info) Description 11/22/2023 Orders Only [facility] MEDICINE [address] [place] [address] [phone] Mely Vasquez MD [address] [place] [address] [phone] Benign prostatic hyperplasia, unspecified whether lower urinary [...] 1:15 PM EDT Office Visit [facility] MEDICINE 230 [place] [address] Mely Vasquez MD [address] [place] [address] 01/06/2025 3:15 PM EDT Clinical Support [facility] MED & PEDS 505 [place] [address] Liset Cage, APARNA [address] [place] [address] Scheduled Referrals Name Type Priority Associated Diagnoses [...] Testosterone, Total 522 250 - 1100 ng/dL [facility] Comment:For additional infor shanon, please refer [email or web address](This link is being provided for informational/educational purposes only.)This test was developed and its analytical performancecharacteristics have been determined by [facility] [place], [place]. It hasnot been cleared or approved by the U.S. Food and DrugAdministration. This assay has been validated pursuantto the CLIA regulations and is used for clinicalpurposes.THIS TEST WAS PERFORMED AT:[employer] [place] [address]VNMNLVNMARYSOL PANTOJA MD,PHD Blood Venous blood specimen / Unknown 12/02/2023 1:02 PM EDT 12/02/2023 4:10 PM EDT us Mely Vasquez MD LAB BLOOD ORDERABLES Final Resul t [facility] [address] [place] [address] [phone] * PSA,Total (12/02/2023 1:02 PM EDT) Prostate Specific Antigen 0.50 <0.05 - 4.0 ng/mL [facility] Comment:PSA methodology: Jennifer Dupree i ChemiluminescentMicroparticle Immunoassay (CMIA) Blood Venous blood specimen / Unknown 12/02/2023 1:02 PM EDT 12/02/2023 4:10 PM EDT us Mely Vasquez MD LAB BLOOD ORDERABLES Final Resul t [facility] [address] [place] [phone] documented in this encounter Visit Diagnoses Diagnosis Benign prostatic hyperplasia, unspecified whether lower urinary tract symptoms present- Primary documented in this encounter Additional Health Concerns Assessment Noted Time PHQ-9 Depression Total Score: 0 02/27/20 23 3:09 PM EDT documented as of this encounter Care Teams Rubber Gasket Inspector Trimmer Relationship Specialty Start Date End Date Mely Vasquez MD [address] [place] [address] PCP - General Family Medicine 05/11/21 documented as of this encounter
--- OUTSIDE RECORDS SUMMARY | 2024-12-16 15:59 | XMS_ITS | Encounter Summary ---
Author Organization [employer] Address [address] [place] [address] Care Team Providers Care Physical Education Instructor Name Role Phone Mely Vasquez MD Primary Care Provider [phone] Reason for Visit * Reason Onset Date Comments Med Refill 12/10/2024 Encounter Details Date Type Department Care Team ([facility] st Contact Info) Description 12/10/2024 Telephone [facility] MEDICINE [address] [place], [place] [phone] Mely Vasquez MD [address] [place], [place] [phone] Med Refill Social History Tobacco Use Types [...] encounter Miscellaneous Notes * Telephone Encounter - Kami Serrano - 12/14/2024 8:25 AM EDT TC from pt requesting medication refill. Medications needing refill : oxyCODONE (Roxicodone) 15 MG immediate release tablet To be sent to: [facility]/pharmacy [address] [place] [address] * Telephone Encounter - Kami Serrano - 12/10/2024 8:41 AM EDT TC from pt requesting medication refill. Medications needing refill : oxyCODONE (Roxicodone) 15 MG immediate release tablet To be sent to: [facility]/pharmacy [address] [place] [address] too soon for refill. Pt was advised. documented in this encounter Plan of Treatment Upcoming Encounters Date Type Department Care Team (Late st Contact Info) Description 12/29/2024 1:15 PM EDT Office Visit [facility] MEDICINE [address] [place], [place] [phone] Mely Vasquez MD [address] [place], [place] [phone] 01/06/2025 3:15 PM EDT Clinical Support [facility] MED & PEDS [address] [place] [address] Liset Cage, RN [address] [place] [address] documented as of this encounter Visit Diagnoses Not on filedocumented in this encounter Additional Health Concerns Assessment Noted Time PHQ-9 Depression Total Score: 0 02/27/20 23 3:09 PM EDT documented as of this encounter Care Teams Physical Education Instructor Relationship Specialty Start Date End Date Mely Vasquez MD [address] [place] [address] PCP - General Family Medicine 05/11/21 documented as of this encounter
--- OUTSIDE RECORDS SUMMARY | 2024-12-16 15:59 | XMS_ITS | Clinical Summary ---
Author Organization [employer] Address [address] [facility] [address] [place] [address] Care Team Providers Care Senior Marketing Engineer Name Role Phone Mely Vasquez MD Primary Care Provider [phone] Allergies Active Allergy Reactions Criticality Noted Date [...] to 28 days. Do not start before December 15, 2024. 84 tablet 12/16/19 25 2024 Active oxyCODONE (Roxicodone) 15 MG [...] 18, 2024. 84 tablet 11/19/19 25 2024 Discontinued(R eorder (will not trigger [...] 3:19 PM EST): - seen by urologist, [facility] - patient states he was prescribed tamsulosin for a short-term only. Will check the treatment plan - tamsulosin will help his BP as well Assessment & Plan (04/10/2024 6:39 AM EDT): - seen by urologist, [facility] - patient states he was prescribed tamsulosin [...] enucleation - evaluated by ocular specialist and local company hazmat driver - treatment will not be covered by [...] ENT - consider evaluation by allergy / stars specialist for allergy test / immunotherapy. Assessment & Plan (12/27/2022 12:16 PM EDT): - continue montelukast - restart cetirizine - consider environmental services specialist for allergy testing / immunotherapy Chronic [...] 6:34 AM EDT): -[facility] provider: [facility] -Psychiatrist: Dr. Chavarria -Clinician: Previously Elyssa [...] 2:48 PM EDT): -[facility] provider: [facility] -Psychiatrist: Dr. Chavarria -Clinician: Previously Elyssa Serrano, but pt does not have one currently -Evaluated by Nicko from [facility] -Pt has an upcoming appt with [...] (08/09/2024 10:38 AM EST): - Followed by [facility], last seen in May 2024, upcoming follow up appointment in Jul 2024 - EGD in Feb 2024, small hiatal hernia and minimal gastritis - Continue Omeprazole 20mg BID - work on smoking cessation - avoid NSAIDs - H. Pylori test was negative in October 2023 Assessment & Plan (04/07/2024 2:23 PM EDT): - Followed by [facility] GI, last seen in November 2023 - Continue Omeprazole 20mg BID - work on smoking cessation - avoid NSAIDs - H. Pylori test was negative in October 2023 Assessment & Plan (12/24/2023 4:41 PM EDT): - Followed by [facility], last seen in November 2023 - Continue Omeprazole 20mg BID - work on smoking cessation - avoid NSAIDs - H. Pylori test was negative in October 2023 Assessment & Plan (08/25/2023 4:45 PM EST): - Followed by [facility], last seen in Jun 2023 - Continue Omeprazole 20mg BID - work on smoking cessation - avoid NSAIDs Assessment & Plan (12/18/2022 2:52 PM EDT): Seen by , NOVEMBER 2022 -Rx Omeprazole 20mg BID -cont current tx plan -work on smoking cessation -avoid NSAIDs Blurry vision, right eye 12/18/2022 Assessment & Plan (08/25/2023 4:55 PM EST): - seen by local company hazmat driver in Mar 2023 - dry eye - [...] stimulator removed on 09/26/[address] Beasley ([facility]). It was placed 7-8 years ago in [place]. -MRI in Feb 2023 showed: 1. Stable [...] post-laminectomy syndrome. -Continue judicious use of oxycodone -EDI ARCHITECT agreement is up to date - Follow up in 3-4 mo or sooner prn Assessment & Plan (02/27/2023 6:20 AM EDT): - on chronic opioid treatment with oxycodone 15 mg q8 hours since 07/17/2017. - Nerve stimulator removed on 09/26/[address] Beasley ([facility]). It was placed 7-8 years ago in [place]. - MRI on 03/01/21 showed: --Postoperative findings [...] of arachnoiditis. -Continue judicious use of oxycodone -EDI ARCHITECT agreement is up to date - Follow up in 3 mo or sooner prn - recent exacerbation in pain; adding celecoxib for short-term Assessment & Plan (12/18/2022 2:40 PM EDT): -He's on chronic opioid of oxycodone 15 mg q8 hours since 07/17/2017. -Nerve stimulator removed on 09/26/[address] Beasley ([facility]). It was placed 7-8 years ago in [place]. -MRI scheduled and completed, 03/01/21. ~MRI findings [...] of arachnoiditis. -Continue judicious use of oxycodone -EDI ARCHITECT agreement review is up to date Vitamin [...] (12/24/2023 4:39 PM EDT): - following with [facility] GI, last seen on 12/18/23 - plan to evaluate with EGD and abdominal US - continue omeprazole and sucralfate Colon cancer screening 12/19/202308/09 Acute upper respiratory infection 12/13/2022 02/26/2023 Encounters Date Type Department Care Team Description 12/14/2024 Refill [facility] [address] [place] [address] Liset Cage, RN Lumbar disc disease 12/10/2024 Telephone [facility] [address] [place] [phone] Mely Vasquez MD Med Refill 12/10/[address] [address] Mely Vasquez MD ER Follow-up; Nurse Triage 11/26/[address] [address] Mely Vasquez MD Prior Auth DME 11/19/[address] [address] Mely Vasquez MD Appointment Request 11/17/[address] [address] Mely Vasquez MD Lumbar disc disease 11/09/[address] [address] Mely Vasquez MD chart prep 10/21/2024 Refill [facility] [address] [place] [address] Liset Cage, RN Lumbar disc disease 10/21/[address] [address] Mely Vasquez MD Med Refill 10/02/2024 Orders Only [facility] [address] [place] [address] Dylan Christiansen, DMD 10/02/2024 Telephone [facility] [address] [place] [address] Luke Chacko DDS 09/28/2024 1:30 PM EST Telemedicine [facility] [address] [place] [address] Liset Cage, RN Long-term current use of opiate analgesic 09/28/2024 Travel 09/24/2024 Refill [facility] [address] [place] [phone] Mely Vasquez MD Lumbar disc disease from Last 3 Months Immunizations Immunization Administration Dates Next Due Hep B, adult [...] 12/29/2024 1:15 PM EDT Office Visit [facility] [address] [place], [place] [phone] Mely Vasquez MD [address] [place] [address] 01/06/2025 3:15 PM EDT Clinical Support [facility] [address] [place], [place] [phone] Liset Cage, APARNA [address] [place] [address] Health Maintenance Due Date Last Done Comments CT Colonography 1975 Dental Oral Exam 1975 Dental Prophylaxis 1975 Dental X-Ray: Full Mouth 1975 FIT DNA/Cologuard 1975 FIT 1975 FOBT 1975 Sigmoidoscopy 1975 Disability Screening 1975 Family Planning (PISQ) 12/21/1990 Hepatitis C [...] EDT Narrative 10/28/2024 7:13 AM EDT ? [facility] ?[address] ?[place] [address] ? Ultrasound Report ? Signed ? Patient: Hosea Stoner ?MR#: M ?? [id number] ? : 1975 ?Acct:[id number] ? Age/Sex: 48 / M ?ADM Date: 10/27/24 ? Loc: HO.US ? Attending Dr: Rita Edwards MD ? Ordering Physician: Rita Edwards MD ?? Date of Service: 10/27/24 ?? Procedure(s): US retroperitoneal comp ?? Accession Number(s): [id number] ? cc: Rita Edwards MD; Mely Vasquez [...] ??Noe Martinez MD ??10/28/2024 07:10 AM EDT ? Dictated By: ?Noe Martinez MD ? Signed By: ?<Electronically signed by Noe Martinez MD in OV> ?10/28/24 0710 ? DD/ 1341 ? TD/TT: 10/27/24 1353 ? Flash Drier Operator: ? Procedure Note Doneric, Image - 10/28/2024 [place] [address] Ultrasound Report Signed Patient: Hosea Stoner [facility]#: [id number] : 1975Acct:[id number] Age/Sex: 48 / MADM Date: 10/27/24 Loc: HO.US Attending Dr: Rita Edwards MD Ordering Physician: Rita Edwards MD Date of Service: 10/27/24 Procedure(s): US retroperitoneal comp Accession Number(s): [id number] cc: Rita Edwards MD; Mely Vasquez MD [...] Noe Martinez MD 10/28/2024 07:10 AM EDT RP Dictated By: Noe Martinez MD Signed By: <Electronically signed by Noe Martinez MD in OV> 10/28/24 0710 DD/ 1341 TD/TT: 10/27/24 1353 Flash Drier Operator: us [facility] External Provider IMG US PROCEDURES Edited Result - Final * (ABNORMAL) Lipid Panel with Reflex to Direct LDL (08/27/2023 2:28 PM EST) Triglycerides 177(H) <150 mg/dL [facility] Comment:Desirable Triglyceri de: less than 150 mg/dLBorderline High Triglyceride 150-199 mg/dLHigh Triglyceride: 200-499 mg/dLVery High Triglyceride: greater than or equal to 5OO mg/dL Cholesterol 162 <200 mg/dL [facility] Comment:Desirable Cholestero l: less than 200 mg/dLBorderline High Cholesterol: 200-239 mg/dLHigh Cholesterol: greater than 239 mg/dL LDL Cholesterol Calculated 94 <100 mg/dL [facility] Comment:Desirable LDL: less than 100 mg/dLNear Optimal/Above Optimal LDL: 110- 129 mg/dLBorderline High LDL: 130-159 mg/dLHigh LDL: 160-189 mg/dLVery High LDL: greater than or equal to 190 mg/dL HDL Cholesterol 33(L) >40 mg/dL [facility] Comment:Desirable HDL: great er than 40 mg/dL Note: This HDL assay may give artificially low results in patients with liver disease. Blood 08/27/2023 2:28 PM EST 08/27/2023 4:05 PM EST Mely Vasquez MD LAB BLOOD ORDERABLES Final Resul t Performing Organization Address [facility]/ZIP Co de Phone Number [facility] [address] [place] [address] [phone] * Hm Colonoscopy (10/09/2022) Colonoscopy Normal [...] detection of this assay. ?? [employer] HIV Ag/Ab Combo assay result and supplemental [...] Most Recently Relevant to Health Maintenance Insurance [facility] STANDARD [facility] MEDICARE ADVANTAGE DENTAL [facility] DENTAL-[facility] MEDICAID STAND ADULT DENTAL [facility] PPO Care Teams Senior Marketing Engineer Relationship Specialty Start Date End Date Mely Vasquez MD [address] [place] [address] PCP - General Family Medicine 05/11/21
== END 2024-12-16 16:14 | disposition home or self-care (01) ==
LOC: HO.HUSH 15:57
PROVIDERS: PCP Family Medicine; Visit Provider Urology
DX: R79.89 Other specified abnormal findings of blood chemistry (principal); N52.9 Male erectile dysfunction, unspecified; R35.0 Frequency of micturition
CPT/HCPCS: 99214

== ENCOUNTER → 2024-12-16 15:57 | Outpatient (BNVA) | payer MEDICARE, MEDICAID, SELFPAY | PROVIDERS: PCP Family Medicine; Visit Provider Urology ==

== ENCOUNTER 2024-12-25 15:15 | Outpatient (AMB) | payer MEDICARE, MEDICAID, SELFPAY ==
--- NOTE | 2024-12-25 15:17 | MHC.OFFVIS ---
Vital Signs 12/25/24 15:27 Height 5 ft 2 in Weight 124 lb BMI 22.7 BP 106/80 Blood Pressure Location Lt brachial Position Sitting Pulse 66 Pulse Source Pulse Oximeter Pulse Oximetry (%) 99 Oxygen Delivery Method Room Air Intake Visit Reasons: Abd pain, FUV. Appt never made by OAs. Intake Note: Established patient for mgmt of abd pain, hx diverticulitis. CC; C.O. persistence of abd pain and was unable to complete his abx course due to increased N+V, abd pain, and dizziness. Pt also still experiencing moderate amounts of BRB per rectum. GERD has improved since starting new PPI. Family Law Paralegal Required: Yes Family Law Paralegal Services: Family Law Paralegal Offered & Declined Accompanied by: Spouse Allergies amitriptyline Allergy (Severe, Verified 12/25/24 15:18) Confusion morphine [MORPHINE] Allergy (Severe, Verified 12/25/24 15:18) CONSTIPATION, stomach upset ibuprofen [From MOTRIN] Adverse Reaction (Intermediate, Verified 12/25/24 15:18) ABD PAIN cyclobenzaprine [From FLEXERIL] Adverse Reaction (Mild, Verified 12/25/24 15:18) DRY MOUTH influenza H1N1 Allergy (Intermediate, Uncoded 12/25/24 15:18) Weakness HPI HPI Abd pain, FUV. Appt never made by OAs.: Details: Assessment & Plan (1) GERD (gastroesophageal reflux disease): Code(s): K21.9 - Gastro-esophageal reflux disease without esophagitis Category: Medical (2) Constipation: Code(s): K59.00 - Constipation, unspecified Category: Medical Plan Bur[place]an # translate per pt request He started having rectal bleeding again, and he presented to the ER and he had colitis. With review of the CT it appears that it was diverticulitis. The ER put him on augementin. He was feeling better yesterday, but is more bloated today. . The CT also him to be full of stool, so I think that his senna a 1 a night is not doing well enough. Since he has loose stools taking 2 a night, I recommend that he do 1 qhs alt with 2qhs. He could not swallow the 40mg o2o capsule, so he was using his 's 20mg one. I will change him to pantoprazole 40m gbid as this is a smaller tablet. ROV 3 weeks Medications: New pantoprazole (Protonix) 40 mg PO BID 60 tabs 6RF 30 days Changed From sennosides (senna) 17.2 mg PO BEDTIME PRN constipation K59.00 - Constipation, unspecified To sennosides (senna) 17.2 mg (2 x 8.6 mg) PO BEDTIME 60 tabs 6RF constipation K59.00 - Constipation, unspecified Discontinued omeprazole Discontinued Reason: Change Referral Type 40 mg PO BID 30 days 60 caps 6RF K21.9 - Gastro-esophageal reflux disease without esophagitis TODAYS VISIT [place] # translates per pt request. He could not complete the leva/flagyl r/t N/V and dizziness so he stopped it. BUT, the pain and his rectal bleeding was better when he was on the leva/flagyl. Likely it was the flagyl that was the problem. He continues with the senna 1 alt with 2 tabs qod and is moving his bowels well. He is having BRB with every BM and even flatus. His pain returned and he feels very poorly today. Will start a course of doxycycline, and if he either does not tolerate this or the pain returns will consider then rounding back to augmentin. No sg/sx of patti rash or thrush at this time. I remind them to buy a probiotic supplement. He is feeling significant relief with the pantoprazole bid. ROV 3 weeks. COnsider colonoscopy once sx improved. Last in 2022 [facility] Medical History Low testosterone Encounter for monitoring testosterone replacement therapy Upper abdominal pain Herpes simplex Rib pain on left side GERD (gastroesophageal reflux disease) Left inguinal hernia (04/26/24) Left groin hernia Screening PSA (prostate specific antigen) Constipation Depression with anxiety Asthma Colon cancer screening Pelvis, multiple open fractures with disruption of pelvic [place] Failed spinal cord stimulator Surgical History Status post inguinal hernia repair using synthetic patch Postop check History of esophagogastroduodenoscopy (EGD) H/O colonoscopy History of arthroscopy of right knee History of back surgery H/O pelvic surgery H/O enucleation of left eyeball Social History Are you a primary hemodialysis patient care specialist to a significant other at home: No Do you presently have visiting nurse or other home services: No Alcohol intake: never Patient Tobacco Use Status: Current everyday Tobacco user Tobacco use type: Cigarette Cigarettes Per Day: 10 Review of Systems Const Denies fatigue, Denies fever(s), Denies night sweats, Denies poor appetite and Denies weight loss Eyes Details: glasses Reports loss of vision and Reports requires corrective lenses ENT Reports Normal hearing present, Denies dental pain, Denies dysphagia, Denies hearing loss, Denies mouth pain, Denies odynophagia, Denies throat swelling, Denies tongue swelling and Reports other (Dentition adequate) Card Reports no additional complaints Resp Reports no additional complaints GI Details: Denies abdominal pain, Denies melena, Denies bloating, Denies hematochezia, Denies constipation, Denies GI cramping, Denies dysphagia, Denies excessive flatus, Denies early satiety, Denies heartburn, Denies diarrhea, Denies nausea, Denies odynophagia, Denies vomiting and Denies hematemesis Skin/Breast Denies pruritus, Denies lesions, Denies rash and Denies jaundice Neuro Reports Normal hearing present, Denies Abnormal speech present and Reports loss of vision Endo Denies fatigue Aller/Immun Denies throat swelling and Denies tongue swelling Physical Exam Vital Signs: Last Vital Signs Pulse 66 12/25/24 15:27 BP 106/80 12/25/24 15:27 Pulse Ox 99 12/25/24 15:27 Oxygen Delivery Method Room Air 12/25/24 15:27 BMI result Body Mass Index 22.7 Const General: cooperative, no acute distress, well developed and well groomed Nutritional Appearance: average body habitus and well nourished Orientation/consciousness: oriented to person, oriented to place and oriented to time Limitations: language barrier and other limitations HEENT Head: Yes normocephalic and Yes atraumatic Eyes General: dysmorphic Eyelids: Yes lid lag (left) Pupils: Equal, round and reactive pupils present Neck Neck: Yes normal visual inspection and Yes no lymphadenopathy Thyroid: Thyroid normal Resp Effort & Inspection: normal respiratory effort and able to speak in complete sentences Auscultation: clear to auscultation bilaterally Cardio Rate: regular rate Rhythm: regular rhythm Heart sounds: Normal, physiologic split S2 sound present Peripheral pulses: radial pulses present and posterior tibial pulses present GI Inspection: No distended and No Abdominal panniculus present Palpation (GI): Soft to palpation, Tenderness to palpation present (GI) in the LUQ and periumbilically, no guarding, not rigid and No hepatosplenomegaly present Percussion: Yes normal to percussion Auscultation: normal bowel sounds Rectal Exam - Male: Yes deferred Skin General skin exam: no rashes or lesions noted, turgor normal, skin not dry, no jaundice, No spider nevi and no striae Rashes: no rashes Nails: normal Neuro General: oriented to person, oriented to place and oriented to time Cranial nerves: Yes Equal, round and reactive pupils present and Yes Normal hearing present Speech: No Abnormal speech present Extrem General: Yes normal to inspection, No clubbing, No cyanosis and No edema Psych Appearance: grossly normal and well kempt Mental Status: mental status grossly normal Speech and movement: Normal speech and movement present Affect: normal affect Attitude: cooperative Thought process: Normal thought process present and not confabulating Thought content: Normal thought content present Insight: Limited insight present (Psych) Judgement: Limited judgement present (Psych) Assessment & Plan Assessment & Plan (1) GERD (gastroesophageal reflux disease): Code(s): K21.9 - Gastro-esophageal reflux disease without esophagitis Category: Medical (2) Constipation: Code(s): K59.00 - Constipation, unspecified Category: Medical (3) Diverticulitis: Code(s): K57.92 - Diverticulitis of intestine, part unspecified, without perforation or abscess without bleeding Category: Medical Plan Bur[place]an # translates per pt request. He could not complete the leva/flagyl r/t N/V and dizziness so he stopped it. BUT, the pain and his rectal bleeding was better when he was on the leva/flagyl. Likely it was the flagyl that was the problem. He continues with the senna 1 alt with 2 tabs qod and is moving his bowels well. He is having BRB with every BM and even flatus. His pain returned and he feels very poorly today. Will start a course of doxycycline, and if he either does not tolerate this or the pain returns will consider then rounding back to augmentin. No sg/sx of patti rash or thrush at this time. I remind them to buy a probiotic supplement. He is feeling significant relief with the pantoprazole bid. ROV 3 weeks. COnsider colonoscopy once sx improved. Last in 2022 Medications: New hydrocortisone 2.5% (Proctosol HC) BE SURE TO INCLUDE RECTAL APPICATOR!! 1 appl MT BID 30 grams 6RF hemorrhoids K64.9 - Unspecified hemorrhoids doxycycline hyclate 100 mg PO BID 28 tabs 0RF 14 days hydrocortisone 2.5% (Proctosol HC) BE SURE TO INCLUDE RECTAL APPICATOR!! 1 appl MT BID 30 grams 6RF hemorrhoids K64.9 - Unspecified hemorrhoids Coding Level of Care Code Est Pt Level 3 (13681) Diagnoses GERD (gastroesophageal reflux disease) K21.9 Constipation K59.00 Diverticulitis K57.92
[2024-12-25 15:27] VITALS: BP 106/80; PULSE 66; O2SAT 99; BMI 22.7
== END 2024-12-25 16:17 | disposition home or self-care (01) ==
PROVIDERS: PCP Family Medicine; Visit Provider Nurse Practitioner
DX: K21.9 Gastro-esophageal reflux disease without esophagitis (principal); K59.00 Constipation, unspecified; K57.92 Diverticulitis of intestine, part unspecified, without perforation or abscess without bleeding
CPT/HCPCS: 99213

== ENCOUNTER → 2024-12-25 15:15 | Outpatient (BNVA) | payer MEDICARE, MEDICAID, SELFPAY | PROVIDERS: PCP Family Medicine; Visit Provider Nurse Practitioner | DX: K21.9 Gastro-esophageal reflux disease without esophagitis (principal); K59.00 Constipation, unspecified; K57.92 Diverticulitis of intestine, part unspecified, without perforation or abscess without bleeding | CPT/HCPCS: 99212 ==

== ENCOUNTER 2025-01-01 15:57 | Emergency (ER) | payer OTHER, SELFPAY ==
[2025-01-01 16:04] VITALS: BP 128/86; PULSE 77; O2SAT 98
[2025-01-01 16:07] VITALS: BP 118/82; PULSE 76; RESP 16; TEMP 36.7; O2SAT 99; BMI 21.9
--- NOTE | 2025-01-01 16:08 | ED.ABDPAIN ---
HPI - Abdominal Pain General Chief Complaint: Abdominal Pain Stated Complaint: LUQ PAIN W/BLOOD IN STOOL PER EMS Time Seen by Provider: 01/01/25 22:37 Source: patient Mode of arrival: ambulatory Limitations: no limitations History of Present Illness ED Provider: HPI narrative: Patient has chronic abdominal pain been here multiple times for same patient had CT scan of the abdomen on 12/02/2024 which was essentially negative except for colitis/diverticulitis started on Augmentin comes here for epigastric pain patient's endoscopy done on 03/21 which showed 3 cm sliding hiatal hernia Related Data Home Medications ?Medication ?Instructions ?Recorded ?Confirmed albuterol sulfate 90 mcg/actuation 2 puff inhalation Q4-6H PRN 12/04/21 08/31/24 aerosol inhaler wheezing alprazolam 0.5 mg tablet 0.5 mg PO DAILY PRN anxiety 12/04/21 08/31/24 cetirizine 10 mg tablet 10 mg PO QAM 12/27/22 08/31/24 cholecalciferol (vitamin D3) 50 50 mcg PO DAILY 12/27/22 08/31/24 mcg (2,000 unit) capsule valacyclovir 500 mg tablet 500 mg PO DAILY 12/27/22 08/31/24 acetaminophen 500 mg tablet 500 mg PO Q6H PRN Pain, Mild 04/24/24 08/31/24 oxycodone 15 mg tablet 15 mg PO TID PRN 06/03/24 08/31/24 valsartan 40 mg tablet 40 mg PO DAILY 12/04/24 trazodone 50 mg tablet 50 mg PO BEDTIME 12/25/24 Previous Rx's ?Medication ?Instructions ?Recorded testosterone 2 pump topical DAILY 30 days #75 08/31/24 grams lidocaine 5 % topical patch 1 patch topical DAILY #15 ea 11/07/24 (Lidoderm) pantoprazole 40 mg tablet,delayed 40 mg PO BID 30 days #60 tabs 12/04/24 release (Protonix) sennosides 8.6 mg tablet (senna) 17.2 mg (2 x 8.6 mg) PO BEDTIME 12/04/24 constipation #60 tabs solifenacin 5 mg tablet (Vesicare) 5 mg PO BEDTIME #30 tabs 12/16/24 hydrocortisone 2.5 % topical cream 1 appl [place] BID hemorrhoids #30 grams 12/25/24 with perineal applicator (Proctosol HC) amoxicillin 875 mg-potassium 1 tab PO BID 14 days #28 tabs 12/31/24 clavulanate 125 mg tablet famotidine 40 mg tablet (Pepcid) 40 mg PO BEDTIME #30 tabs 01/01/25 sucralfate 1 gram tablet 1 g PO TID #90 tabs 01/01/25 Allergies Allergy/AdvReac Type Severity Reaction Status Date / Time amitriptyline Allergy Severe Confusion Verified 01/01/25 16:10 morphine [MORPHINE] Allergy Severe CONSTIPATION, Verified 01/01/25 16:10 stomach upset ibuprofen [From MOTRIN] AdvReac Intermediate ABD PAIN Verified 01/01/25 16:10 cyclobenzaprine AdvReac Mild DRY MOUTH Verified 01/01/25 16:10 [From FLEXERIL] influenza H1N1 Allergy Intermediate Weakness Uncoded 12/25/24 15:18 Review of Systems Review of Systems Yes all other systems are reviewed and are negative PMFSH Past Medical History Medical History Low testosterone Encounter for monitoring testosterone replacement therapy Upper abdominal pain Herpes simplex Rib pain on left side GERD (gastroesophageal reflux disease) Left inguinal hernia (04/26/24) Left groin hernia Screening PSA (prostate specific antigen) Constipation Depression with anxiety Asthma Colon cancer screening Pelvis, multiple open fractures with disruption of pelvic [place] Failed spinal cord stimulator Surgical History Status post inguinal hernia repair using synthetic patch Postop check History of esophagogastroduodenoscopy (EGD) H/O colonoscopy History of arthroscopy of right knee History of back surgery H/O pelvic surgery H/O enucleation of left eyeball Social History Social History Are you a primary dog daycare provider to a significant other at home: No Do you presently have visiting nurse or other home services: No Alcohol intake: never Patient Tobacco Use Status: Current everyday Tobacco user Tobacco use type: Cigarette Cigarettes Per Day: 10 Smoked in Last 30 Days: Yes Use of substances other than those prescribed or required for medical reasons: No Advance Directives: No Advance Directives Information Provided: No Do you have a plan to hurt others: No Plan Physical Exam ED Vital Signs: Vital Signs - 24 hr 01/01/25 16:07 01/01/25 21:34 01/01/25 23:10 Temperature 98.0 F 98.6 F 98.1 F Pulse Rate 76 54 61 Respiratory Rate 16 16 16 Blood Pressure 118/82 112/83 139/111 H Pulse Oximetry 99 97 97 Oxygen Delivery Method Room Air Room Air Room Air BMI result Body Mass Index 21.9 Appearance: Alert. Oriented X3. No acute distress. Eyes: PERRLA, No Nystagmus no pallor or icterus ENT: Pharynx normal. Oral Mucosa moist Neck: Normal inspection. Neck supple. CVS: Normal heart rate and rhythm. Pulses normal. Respiratory: No respiratory distress. Equal air entry bilateral, no wheezing/rales/rhonchi Abdomen: Soft and tenderness in epigastric area no rebound tenderness or guarding Bowel sounds are present, no mass palpable, no CVA tenderness Skin: Skin warm and dry. Normal skin color. Normal skin turgor. Extremities: No lower extremity edema. No calf tenderness Neuro: Oriented X 3. No motor deficit. No sensory deficit.No cerebellar signs , cranial nerves II-XII intact Course Course Course Narrative: 01/01/25 1608 ALEJANDRA John This is a Rapid Medical Examination (RME) performed by Saul Kolb PA-C in triage. Full HPI, ROS, assessment and treatment plan per primary provider in the Main ED. Hx: 49 yo M hx GERD and internal hemorrhoids BIBA for eval of left sided abdominal pain x 6-7 months, getting worse today. now unable to tolerate PO at home. using senna at home. reports seeing blood in the toilet bowel water w/ BMs. passing flatus. seen at our facility on 11/29/24, diagnosed w/ colitis, has completed abx for this. PE/vitals: ttp of left abd Plan: labs, UA Medical Decision Making Medical Decision Making [facility] Narrative: Patient has chronic abdominal pain with history of H pylori and hiatal hernia been followed by GI on Protonix still having the symptoms will add Pepcid and sucralfate advised to follow up with PCP/chinese herbalist Lab Data MDM Lab Attestation statement: I reviewed the patient's lab results. 01/01/25 16:23 01/01/25 16:23 Labs: Lab Results 01/01/25 01/01/25 Range/Units 16:23 21:50 WBC 11.3 H (4.8-10.8) X10*3/uL RBC 5.03 (4.60-5.80) X10*6/uL Hgb 15.4 (14.0-18.0) g/dl Hct 45.2 (42.0-52.0) % MCV 89.9 (80.0-98.0) fL MCH 30.6 (27.0-33.0) pg MCHC 34.1 (31.0-36.0) g/dl RDW 12.5 (11.0-16.0) % Plt Count 286 (160-400) X10*3/uL MPV 10.1 (9.4-12.4) fL Immature Gran % (Auto) 0.4 (0.0-0.4) % Neut % (Auto) 69.4 (45-73) % Lymph % (Auto) 23.5 (20-40) % [place] % (Auto) 5.3 (2-11) % Eos % (Auto) 0.9 (0-4) % Baso % (Auto) 0.5 (0-2) % Lymph # (Auto) 2.7 (1.2-4.9) X10*3/uL [place] # (Auto) 0.6 (0.1-1.2) X10*3/uL Eos # (Auto) 0.1 (0.0-0.4) X10*3/uL Baso # (Auto) 0.1 (0.0-0.2) X10*3/uL Abs Immat Gran (auto) 0.04 H (0.00-0.03) X10*3/uL Absolute Neuts (auto) 7.9 (2.0-8.3) x10*3/uL Absolute Nucleated RBC 0.000 (0.0-0.012) X10*3/uL Nucleated RBC % (auto) 0.0 (0.0-0.2) /100WBC Sodium 142 (135-145) mmol/L Potassium 4.5 (3.3-5.1) mmol/L Chloride 107 (96-108) mmol/L Carbon Dioxide 27 (22-29) mmol/L Anion Gap 13 (12-20) BUN 14 (9-16) mg/dL Creatinine 0.99 (0.5-1.4) mg/dL Estim Creat Clear Calc 69.1 Estimated GFR > 60 Random Glucose 96 (60-115) mg/dL Calcium 9.9 (8.4-10.2) mg/dL Magnesium 2.0 (1.6-2.6) mg/dL Total Bilirubin 0.7 (0.0-1.0) mg/dL AST 22 (5-37) U/L ALT 27 (0-40) U/L Alkaline Phosphatase 65 (39-117) U/L Troponin I High Sens < 2.7 (<3.5-35.0) ng/L Total Protein 7.4 (6.5-8.0) g/dL Albumin 4.9 (3.5-5.0) g/dL Lipase 29 (8-78) U/L Urine Color Yellow Urine Appearance Clear Urine pH 5.5 (5.0-9.0) Ur Specific Issue 1.010 (1.005-1.025) Urine Protein Negative (Neg-Trace) mg/dL Urine Glucose (UA) Negative (Negative) mg/dL Urine Ketones Trace (Negative) mg/dL Urine Blood Negative (Negative) Urine Nitrite Negative (Negative) Ur Leukocyte Esterase Negative (Negative) Medications Administered Discontinued Medications Generic Name Dose Route Start Last Admin Trade Name Freq PRN Reason Stop Dose Admin Al Hydroxide/Mg Hydroxide 30 ml 01/01/25 22:48 01/01/25 23:05 Magnesium Hydrox/Alum Hydrox 30 Ml Oral.Susp PO 01/01/25 22:49 30 ml ONCE ONE Administration Lidocaine HCl 15 ml 01/01/25 22:48 01/01/25 23:05 Lidocaine Hcl Viscous 2 % 15 Ml Solution MUCOUS MEM 01/01/25 22:49 15 ml ONCE ONE Administration Discharge Plan Discharge Clinical Impression: Chronic GERD Patient Disposition: Home, Self-Care Instructions: GERD (Gastroesophageal Reflux Disease) (ED) Additional Instructions: Continue take your medication as prescribed by chinese herbalist Will add Pepcid and sucralfate as advised Avoid fried and spicy food Prescriptions: New famotidine [Pepcid] 40 mg tablet 40 mg PO BEDTIME Qty: 30 0RF sucralfate 1 gram tablet 1 g PO TID Qty: 90 0RF No Action amoxicillin-pot clavulanate 875-125 mg tablet 1 tab PO BID 14 Days Qty: 28 0RF acetaminophen 500 mg Tablet 500 mg PO Q6H PRN (Reason: Pain, Mild) lidocaine [Lidoderm] 5 % adhesive patch,medicated 1 patch topical DAILY Qty: 15 0RF Rx Instructions: leave on most painful area for up to 12 hrs alprazolam 0.5 mg tablet 0.5 mg PO DAILY PRN (Reason: anxiety) albuterol sulfate 90 mcg/actuation HFA aerosol inhaler 2 puff inhalation Q4-6H PRN (Reason: wheezing) cetirizine 10 mg tablet 10 mg PO QAM valacyclovir 500 mg tablet 500 mg PO DAILY cholecalciferol (vitamin D3) 50 mcg (2,000 unit) capsule 50 mcg PO DAILY oxycodone 15 mg tablet 15 mg PO TID PRN valsartan 40 mg tablet 40 mg PO DAILY pantoprazole [Protonix] 40 mg tablet,delayed release (DR/EC) 40 mg PO BID 30 Days Qty: 60 6RF sennosides [senna] 8.6 mg tablet 17.2 mg PO BEDTIME Qty: 60 6RF solifenacin [Vesicare] 5 mg tablet 5 mg PO BEDTIME Qty: 30 3RF trazodone 50 mg tablet 50 mg PO BEDTIME hydrocortisone [Proctosol HC] 2.5 % cream with perineal applicator 1 appl [place] BID Qty: 30 6RF Rx Instructions: BE SURE TO INCLUDE RECTAL APPICATOR!! testosterone 20.25 mg/1.25 gram (1.62 %) gel in metered-dose pump 2 pump topical DAILY 30 Days Qty: 75 3RF Interventions: ED Discharge Assessment Last Done: 01/01/25 23:10 Discharge Date/Time: 01/01/25 23:11 Print Language: Bulgarian
--- NOTE | 2025-01-01 16:11 | ECG_ITS ---
Test Reason : ABD PAIN Blood Pressure : */* mmHG Vent. Rate : 65 BPM Atrial Rate : 65 BPM P-R Int : 162 ms QRS Dur : 84 ms QT Int : 374 ms P-R-T Axes : 67 29 43 degrees QTcB Int : 388 ms Normal sinus rhythm with sinus arrhythmia Normal ECG No previous ECGs available Referred By: Karin Kolb Electronically Signed By: TONY CARDOZA
[2025-01-01 16:29] LABS: MANUAL DIFF FLAG NO
[2025-01-01 16:30] LABS: Basophils Absolute Auto 0.1 X10*3/uL (0.0-0.2); Basophils Percent Auto 0.5 % (0-2); Eosinophils Absolute Auto 0.1 X10*3/uL (0.0-0.4); Eosinophils Percent Auto 0.9 % (0-4); Hematocrit 45.2 % (42.0-52.0); Hemoglobin 15.4 g/dl (14.0-18.0); Imm Gran Abs Auto 0.04 X10*3/uL (0.00-0.03); Imm Gran Pct Auto 0.4 % (0.0-0.4); Lymphocytes Absolute Auto 2.7 X10*3/uL (1.2-4.9); Lymphocytes Percent Auto 23.5 % (20-40); Mean Corpuscular HGB Conc 34.1 g/dl (31.0-36.0); Mean Corpuscular Hemoglobin 30.6 pg (27.0-33.0); Mean Corpuscular Volume 89.9 fL (80.0-98.0); Mean Platelet Volume 10.1 fL (9.4-12.4); Monocytes Absolute Auto 0.6 X10*3/uL (0.1-1.2); Monocytes Percent Auto 5.3 % (2-11); Neutrophils Absolute Auto 7.9 x10*3/uL (2.0-8.3); Neutrophils Percent Auto 69.4 % (45-73); Platelet Count 286 X10*3/uL (160-400); Red Blood Count 5.03 X10*6/uL (4.60-5.80); Red Cell Distribution Width 12.5 % (11.0-16.0); White Blood Count 11.3 X10*3/uL (4.8-10.8)
[2025-01-01 16:51] LABS: Alanine Aminotransferase 27 U/L (0-40); Albumin Level 4.9 g/dL (3.5-5.0); Anion Gap 13 (12-20); Aspartate Amino Transferase 22 U/L (5-37); Bilirubin Total 0.7 mg/dL (0.0-1.0); Blood Urea Nitrogen 14 mg/dL (9-16); Calcium 9.9 mg/dL (8.4-10.2); Carbon Dioxide 27 mmol/L (22-29); Chloride 107 mmol/L (96-108); Creatinine Clr Calc Pharmacy 69.1; Estimated Glomerular Filt Rate > 60; Glucose Random 96 mg/dL (60-115); Lipase 29 U/L (8-78); Potassium 4.5 mmol/L (3.3-5.1); Sodium 142 mmol/L (135-145); Total Protein 7.4 g/dL (6.5-8.0)
[2025-01-01 16:53] LABS: Troponin-I High Sensitivity < 2.7 ng/L (<3.5-35.0)
[2025-01-01 19:59] LABS: Alkaline Phosphatase 65 U/L (39-117)
--- NOTE | 2025-01-01 21:16 | PC.NURSE ---
assumed care of pt. Pt reports px in upper L quad abd since last night. Too 15 mg oxycodone. Respirations even and unlabored. Pt states pain is 10/10 on numeric scale. Pt reports Hx of UC
[2025-01-01 21:34] VITALS: BP 112/83; PULSE 54; RESP 16; TEMP 37; O2SAT 97
--- NOTE | 2025-01-01 21:51 | MHC.EDTECH ---
This pct just assumed care of Patient ,vitals taken ,urine sample collected and sent to lab .
[2025-01-01 22:05] LABS: Appearance Urine Clear; Color Urine Yellow; Glucose Urine UA Negative (Negative); Leukocyte Esterase Urine Negative (Negative); Nitrite Urine Negative (Negative); PH 5.5 (5.0-9.0); Urine Blood Negative (Negative); Urine Ketones Trace mg/dL (Negative); Urine Protein Negative (Neg-Trace)
[2025-01-01] MEDS: Lidocaine HCl Viscous 2 % 15 ML SOLUTION MUCOUS MEM (23:05)
[2025-01-01] MEDS: Magnesium Hydrox/Alum Hydrox 30 ML ORAL.SUSP PO (23:05)
[2025-01-01 23:10] VITALS: BP 139/111; PULSE 61; RESP 16; TEMP 36.7; O2SAT 97
== END 2025-01-01 23:11 | disposition home or self-care (01) ==
PROVIDERS: Physician Assistant Medical; Emergency Provider Internal Medicine; PCP Family Medicine
DX: K21.9 Gastro-esophageal reflux disease without esophagitis (principal); R10.12 Left upper quadrant pain; R10.13 Epigastric pain; I49.9 Cardiac arrhythmia, unspecified; F17.210 Nicotine dependence, cigarettes, uncomplicated; Z79.899 Other long term (current) drug therapy
CPT/HCPCS: 36415; 80053; 81003; 83690; 83735; 84484; 85025; 93005; 99283; 99285

== ENCOUNTER → 2025-01-01 16:11 | Outpatient (BNV) | payer OTHER, SELFPAY | PROVIDERS: Emergency Provider Internal Medicine; PCP Family Medicine; Visit Provider Internal Medicine | DX: R10.9 Unspecified abdominal pain (principal) | CPT/HCPCS: 93010 ==

== ENCOUNTER 2025-01-14 13:48 | Outpatient (REF) | payer OTHER, SELFPAY ==
--- OUTSIDE RECORDS SUMMARY | 2025-01-14 15:02 | XMS_ITS | Encounter Summary ---
Author Organization [employer] Address [address] [place] [address] Care Team Providers Care Artificial Insemination Technician Name Role Phone Mely Vasquez MD Primary Care Provider [phone] Reason for Visit * Reason Onset Date Comments Med Refill 06/09/2024 Encounter Details Date Type Department Care Team ([facility] st Contact Info) Description 06/09/2024 Telephone [facility] [address] [place], [place] [phone] Mely Vasquez MD [address] [place], [place] [phone] Med Refill Social History Tobacco Use Types [...] release tablet To be sent to: [facility]/pharmacy #[id number] [place], [place] - [address] [place] [address] documented in this encounter Plan of Treatment Upcoming Encounters Date Type Department Care Team (Late st Contact Info) Description 01/27/2025 2:45 PM EDT Clinical Support [facility] [address] [place] [address] Liset Cage, RN [address] [place] [address] documented as of this encounter Visit Diagnoses Not on filedocumented in this encounter Additional Health Concerns Assessment Noted Time PHQ-9 Depression Total Score: 0 02/27/20 23 3:09 PM EDT documented as of this encounter Care Teams Artificial Insemination Technician Relationship Specialty Start Date End Date Mely Vasquez MD [address] [place] [address] PCP - General Family Medicine 05/11/21 documented as of this encounter
[2025-01-14 15:07] LABS: Alanine Aminotransferase 17 U/L (0-40); Albumin Level 4.4 g/dL (3.5-5.0); Alkaline Phosphatase 53 U/L (39-117); Anion Gap 12 (12-20); Aspartate Amino Transferase 18 U/L (5-37); Bilirubin Total 0.6 mg/dL (0.0-1.0); Blood Urea Nitrogen 11 mg/dL (9-16); Calcium 9.1 mg/dL (8.4-10.2); Carbon Dioxide 26 mmol/L (22-29); Chloride 108 mmol/L (96-108); Cholesterol 136 mg/dL (<200); Estimated Glomerular Filt Rate > 60; Glucose Random 108 mg/dL (60-115); HDL Cholesterol 38 mg/dL (>40); LDL Cholesterol Calculated 77 mg/dL (<100); Sodium 142 mmol/L (135-145); Total Protein 6.5 g/dL (6.5-8.0); Triglycerides 106 mg/dL (<150)
[2025-01-14 15:15] LABS: Reflex LDLD? No
[2025-01-14 15:18] LABS: TSH reflex Free T4 0.71 uIU/mL (0.32-4.0); Vitamin D 25-OH Total 41.8 ng/mL (>30)
== END 2025-01-14 13:49 | disposition home or self-care (01) ==
LOC: HO.LAB 13:48
PROVIDERS: PCP Family Medicine; Visit Provider Family Medicine
DX: I10 Essential (primary) hypertension (principal); E78.1 Pure hyperglyceridemia; E55.9 Vitamin D deficiency, unspecified
CPT/HCPCS: 36415; 80053; 80061; 82306; 84443

== ENCOUNTER 2025-01-20 14:15 | Outpatient (AMB) | payer OTHER, SELFPAY ==
--- NOTE | 2025-01-20 14:28 | MHC.OFFVIS ---
Vital Signs 01/20/25 14:41 Height 5 ft 2 in Weight 118 lb BMI 21.6 BP 93/57 L Blood Pressure Location Lt brachial Position Sitting Pulse 72 Intake Visit Reasons: 3 wks Diverticulitis , abd pain Intake Note: Patient 3 weeks follow up for Diverticulitis and abd pain Patient cc: Abdominal pain with bloating, weight lost, heartburn with a lot of burping, constipation with rectal bleeding and blood clots, also swallowing difficulty with chocking sensation. Rn Womens Health Required: No Accompanied by: Family/Other Allergies amitriptyline Allergy (Severe, Verified 01/20/25 14:26) Confusion morphine (MORPHINE) Allergy (Severe, Verified 01/20/25 14:26) CONSTIPATION, stomach upset ibuprofen (From MOTRIN) Adverse Reaction (Intermediate, Verified 01/20/25 14:26) ABD PAIN cyclobenzaprine (From FLEXERIL) Adverse Reaction (Mild, Verified 01/20/25 14:26) DRY MOUTH influenza H1N1 Allergy (Intermediate, Uncoded 12/25/24 15:18) Weakness HPI HPI 3 wks Diverticulitis , abd pain: Details: Assessment & Plan (1) GERD (gastroesophageal reflux disease): Code(s): K21.9 - Gastro-esophageal reflux disease without esophagitis Category: Medical (2) Constipation: Code(s): K59.00 - Constipation, unspecified Category: Medical (3) Diverticulitis: Code(s): K57.92 - Diverticulitis of intestine, part unspecified, without perforation or abscess without bleeding Category: Medical Plan [place]ian # translates per pt request. He could not complete the leva/flagyl r/t N/V and dizziness so he stopped it. BUT, the pain and his rectal bleeding was better when he was on the leva/flagyl. Likely it was the flagyl that was the problem. He continues with the senna 1 alt with 2 tabs qod and is moving his bowels well. He is having BRB with every BM and even flatus. His pain returned and he feels very poorly today. Will start a course of doxycycline, and if he either does not tolerate this or the pain returns will consider then rounding back to augmentin. No sg/sx of patti rash or thrush at this time. I remind them to buy a probiotic supplement. He is feeling significant relief with the pantoprazole bid. ROV 3 weeks. COnsider colonoscopy once sx improved. Last in 2022 Medications: New hydrocortisone 2.5% (Proctosol HC) BE SURE TO INCLUDE RECTAL APPICATOR!! 1 appl NE BID 30 grams 6RF hemorrhoids K64.9 - Unspecified hemorrhoids doxycycline hyclate 100 mg PO BID 28 tabs 0RF 14 days hydrocortisone 2.5% (Proctosol HC) BE SURE TO INCLUDE RECTAL APPICATOR!! 1 appl NE BID 30 grams 6RF hemorrhoids K64.9 - Unspecified hemorrhoids TODAYS VISIT [place] #[employer] HE IS HERE TODAY WITH HIS who is supportive. He was better with the augmentin, but as soon as he completed it the pain and bleeding returned. This is the only abx that worked so far. I am concerned that this may not be simple diverticulitis, and we may be dealing with early UC or Crohns. Getting crp, stool drea, and IBD genetics. He presented tot he ER and was given carafate (!, this would just worsen bleeding as he has no diarrhea), CT still concerning for colon thickening and he had a WBC of 11,000. In the meantime will give long course of augmentin and decide if prednisone is warranted. Ordering EGD/colonoscopy He has mild asthma and denies any cardiac problems. There are no prior problems with anesthesia or sedation. He had a history of genital herpes no other infectious disease problems. There is no known family history of colon cancer or polyps. ROV 3 weeks. [facility] Medical History Low testosterone Encounter for monitoring testosterone replacement therapy Upper abdominal pain Herpes simplex Rib pain on left side GERD (gastroesophageal reflux disease) Left inguinal hernia (04/26/24) Left groin hernia Screening PSA (prostate specific antigen) Constipation Depression with anxiety Asthma Colon cancer screening Pelvis, multiple open fractures with disruption of pelvic [place] Failed spinal cord stimulator Surgical History Status post inguinal hernia repair using synthetic patch Postop check History of esophagogastroduodenoscopy (EGD) H/O colonoscopy History of arthroscopy of right knee History of back surgery H/O pelvic surgery H/O enucleation of left eyeball Social History Are you a primary neurocritical care physician to a significant other at home: No Do you presently have visiting nurse or other home services: No Alcohol intake: never Patient Tobacco Use Status: Current everyday Tobacco user Tobacco use type: Cigarette Cigarettes Per Day: 10 Review of Systems Const Denies fatigue, Denies fever(s), Denies night sweats, Denies poor appetite and Denies weight loss ENT Reports Normal hearing present, Denies dental pain, Denies dysphagia, Denies hearing loss, Denies mouth pain, Denies odynophagia, Denies throat swelling, Denies tongue swelling and Reports other (Dentition adequate) Card Reports no additional complaints Resp Reports no additional complaints GI Details: Reports abdominal pain, Denies melena, Denies bloating, Reports hematochezia, Denies constipation, Reports GI cramping, Denies dysphagia, Denies excessive flatus, Denies early satiety, Denies heartburn, Denies diarrhea, Denies nausea, Denies odynophagia, Denies vomiting and Denies hematemesis Skin/Breast Denies pruritus, Denies lesions, Denies rash and Denies jaundice Neuro Reports Normal hearing present and Denies Abnormal speech present Endo Denies fatigue Aller/Immun Denies throat swelling and Denies tongue swelling Physical Exam Vital Signs: Last Vital Signs Pulse 72 01/20/25 14:41 BP 93/57 L 01/20/25 14:41 BMI result Body Mass Index 21.6 Const General: cooperative, no acute distress, well developed and well groomed Nutritional Appearance: well nourished Orientation/consciousness: oriented to person, oriented to place and oriented to time Limitations: language barrier HEENT Head: Yes normocephalic and Yes atraumatic Eyes Other: Left eye missing General: dysmorphic Pupils: Equal, round and reactive pupils present Neck Neck: Yes normal visual inspection and Yes no lymphadenopathy Thyroid: Thyroid normal Resp Effort & Inspection: normal respiratory effort and able to speak in complete sentences Auscultation: clear to auscultation bilaterally Cardio Rate: regular rate Rhythm: regular rhythm Heart sounds: Normal, physiologic split S2 sound present Peripheral pulses: radial pulses present and posterior tibial pulses present GI Inspection: No distended and No Abdominal panniculus present Palpation (GI): Soft to palpation, nontender, no guarding, not rigid and No hepatosplenomegaly present Percussion: Yes normal to percussion Auscultation: normal bowel sounds Rectal Exam - Male: Yes deferred Skin General skin exam: no rashes or lesions noted, turgor normal, skin not dry, no jaundice, No spider nevi and no striae Rashes: no rashes Nails: normal Neuro General: oriented to person, oriented to place and oriented to time Cranial nerves: Yes Equal, round and reactive pupils present and Yes Normal hearing present Speech: No Abnormal speech present Extrem General: Yes normal to inspection, No clubbing, No cyanosis and No edema Psych Appearance: grossly normal and well kempt Mental Status: mental status grossly normal Speech and movement: Normal speech and movement present Affect: normal affect Attitude: cooperative Thought process: Normal thought process present and not confabulating Thought content: Normal thought content present Insight: Fair insight present (Psych) and Limited insight present (Psych) Judgement: Fair judgement present (Psych) and Limited judgement present (Psych) Results Reviewed Results Reviewed: Laboratory Tests 01/01/25 01/14/25 16:23 13:55 WBC 11.3 H Hgb 15.4 Hct 45.2 Plt Count 286 Estimated GFR > 60 Total Bilirubin 0.6 AST 18 ALT 17 Alkaline Phosphatase [address] ABDOMEN AND PELVIS 12/02/2024 T abdomen and pelvis with contrast Comparison: CT of the abdomen and pelvis from 11/21/2023 Findings: Mild bibasilar atelectasis/pneumonitis with respiratory motion artifacts. Mild fat deposition of the liver. No significant change in small cystic lesions of the liver and imaged kidneys accounting for differences in artifacts. The adrenal glands are normal. The spleen is nonenlarged. Pancreas and gallbladder are unremarkable accounting for artifacts. Calcified and noncalcified plaque including the imaged aorta and its branches. Small mesenteric lymph nodes are likely reactive. No small bowel obstruction. Moderate to severe stool burden present, including the cecum. The appendix is not definitively seen. Wall thickening of the large intestine concerning for colitis, particularly involving the descending colon in the sigmoid colon given adjacent fluid and stranding. Soft tissue of the left inguinal ring is nonspecific and may reflect left testicle. Prostate gland measures 4.5 cm transverse. New moderate wall thickening of the urinary bladder is nonspecific and may reflect cystitis. No significant change in posterior instrumentation of the L5-S1. No hardware loosening by CT. Adjacent segment change including facet arthropathy. Additional facet arthropathy noted. IMPRESSION: 1. Wall thickening of the large intestine concerning for colitis, including descending colon and sigmoid colon. 2. Moderate wall thickening of the urinary bladder. Assessment & Plan Assessment & Plan (1) Colitis: Code(s): K52.9 - Noninfective gastroenteritis and colitis, unspecified Category: Medical (2) GERD (gastroesophageal reflux disease): Code(s): K21.9 - Gastro-esophageal reflux disease without esophagitis Category: Medical (3) Tubular adenoma of colon: Comment: ONE TA 2022 SCOPE REPEAT 5 YEARS Code(s): D12.6 - Benign neoplasm of colon, unspecified Category: Medical Plan [place] #[employer] HE IS HERE TODAY WITH HIS who is supportive. He was better with the augmentin, but as soon as he completed it the pain and bleeding returned. This is the only abx that worked so far. I am concerned that this may not be simple diverticulitis, and we may be dealing with early UC or Crohns. Getting crp, stool drea, and IBD genetics. He presented tot he ER and was given carafate (!, this would just worsen bleeding as he has no diarrhea), CT still concerning for colon thickening and he had a WBC of 11,000. In the meantime will give long course of augmentin and decide if prednisone is warranted. Ordering EGD/colonoscopy He has mild asthma and denies any cardiac problems. There are no prior problems with anesthesia or sedation. He had a history of genital herpes no other infectious disease problems. There is no known family history of colon cancer or polyps. ROV 3 weeks. Orders: Orders [facility] SGI Today K52.9 - Noninfective gastroenteritis and colitis, unspecified C Reactive Protein Today K52.9 - Noninfective gastroenteritis and colitis, unspecified Calprotectin, Fecal Today K52.9 - Noninfective gastroenteritis and colitis, unspecified EGD/[place] Combo - GI Use Only Today D12.6 - Benign neoplasm of colon, unspecified, K21.9 - Gastro-esophageal reflux disease without esophagitis, K52.9 - Noninfective gastroenteritis and colitis, unspecified Medications: New peg 3350-electrolytes 236-22.74-6.74 -5.86 gram (Golytely) until fecal effluent is clear; do not exceed a total volume of 2,000 mL 240 mL PO Q10M 4,000 mL 0RF 1 day Z12.11 - Encounter for screening for malignant neoplasm of colon bisacodyl (Dulcolax (bisacodyl)) 10 mg (2 x 5 mg) PO BEDTIME 4 tabs 0RF 2 days Changed From amoxicillin-pot clavulanate 875-125 mg 1 tab PO BID 14 days 28 tabs 0RF To amoxicillin-pot clavulanate 875-125 mg 1 tab PO BID 60 tabs 2RF 30 days Discontinued sucralfate Discontinued Reason: Doctor's Order 1 g PO TID 90 tabs 0RF Coding Level of Care Code Est Pt Level 4 (64931) Diagnoses Colitis K52.9 GERD (gastroesophageal reflux disease) K21.9 Tubular adenoma of colon D12.6 Time Spent (min) 36
[2025-01-20 14:41] VITALS: BP 93/57; PULSE 72; BMI 21.6
--- OUTSIDE RECORDS SUMMARY | 2025-01-20 16:59 | XMS_ITS | Encounter Summary ---
Author Organization [employer] Address [address] [place] [address] Care Team Providers Care Malt House Kiln Operator Name Role Phone Mely Vasquez MD Primary Care Provider [phone] Reason for Visit * Reason Onset Date Comments Med Refill 06/09/2024 Encounter Details Date Type Department Care Team ([facility] st Contact Info) Description 06/09/2024 Telephone [facility] MEDICINE [address] [place], [place] [phone] Mely Vasquez MD [address] [place], [place] [phone] Med Refill Social History Tobacco Use Types [...] immediate release tablet To be sent to: [facility]/pharmacy #[id number] [place], [place] - [address] [place] [address] documented in this encounter Plan of Treatment Upcoming Encounters Date Type Department Care Team (Late st Contact Info) Description 01/27/2025 2:45 PM EDT Clinical Support [facility] PEDS [address] [place] [address] Liset Cage, RN [address] [place] [address] documented as of this encounter Visit Diagnoses Not on filedocumented in this encounter Additional Health Concerns Assessment Noted Time PHQ-9 Depression Total Score: 0 02/27/20 23 3:09 PM EDT documented as of this encounter Care Teams Malt House Kiln Operator Relationship Specialty Start Date End Date Mely Vasquez MD [address] [place] [address] PCP - General Family Medicine 05/11/21 documented as of this encounter
== END 2025-01-20 15:03 | disposition home or self-care (01) ==
LOC: HO.HGI 14:15
PROVIDERS: PCP Family Medicine; Visit Provider Nurse Practitioner
DX: K52.9 Noninfective gastroenteritis and colitis, unspecified (principal); K21.9 Gastro-esophageal reflux disease without esophagitis; D12.6 Benign neoplasm of colon, unspecified
CPT/HCPCS: 99214

== ENCOUNTER 2025-01-20 14:15 | Outpatient (REF) | payer OTHER, SELFPAY ==
[2025-01-20 16:20] LABS: C Reactive Protein 0.22 mg/dL (< or = 0.50)
== END 2025-01-20 14:16 | disposition home or self-care (01) ==
LOC: HO.LAB 14:15
PROVIDERS: PCP Family Medicine; Visit Provider Nurse Practitioner
DX: K52.9 Noninfective gastroenteritis and colitis, unspecified (principal); K21.9 Gastro-esophageal reflux disease without esophagitis; K57.92 Diverticulitis of intestine, part unspecified, without perforation or abscess without bleeding
CPT/HCPCS: 36415; 81479; 82397; 83520; 86140; 88346; 88350; 99212

== ENCOUNTER 2025-01-21 16:25 | Outpatient (REF) | payer OTHER, SELFPAY ==
--- OUTSIDE RECORDS SUMMARY | 2025-01-21 19:46 | XMS_ITS | Encounter Summary ---
Author Organization [employer] Address [address] [place] [address] Care Team Providers Care Strategic Buyer Name Role Phone Mely Vasquez MD Primary Care Provider [phone] Reason for Visit * Reason Onset Date Comments Med Refill 06/09/2024 Encounter Details Date Type Department Care Team ([facility] st Contact Info) Description 06/09/2024 Telephone [facility] MEDICINE [address] [place], [place] [phone] Mely Vasquez MD [address] [place], [place] [phone] Med Refill Social History Tobacco Use Types [...] immediate release tablet To be sent to: [facility]/pharmacy #[id number] [place], [place] - [address] [place] [address] documented in this encounter Plan of Treatment Upcoming Encounters Date Type Department Care Team (Late st Contact Info) Description 01/27/2025 2:45 PM EDT Clinical Support [facility] [address] [place] [address] Liset Cage, RN [address] [place] [address] documented as of this encounter Visit Diagnoses Not on filedocumented in this encounter Additional Health Concerns Assessment Noted Time PHQ-9 Depression Total Score: 0 02/27/20 23 3:09 PM EDT documented as of this encounter Care Teams Strategic Buyer Relationship Specialty Start Date End Date Mely Vasquez MD [address] [place] [address] PCP - General Family Medicine 05/11/21 documented as of this encounter
[2025-01-28 15:18] LABS: Calprotectin, Fecal 13 mcg/g
== END 2025-01-21 16:26 | disposition home or self-care (01) ==
LOC: HO.LNP 16:25
PROVIDERS: Visit Provider Nurse Practitioner
DX: K52.9 Noninfective gastroenteritis and colitis, unspecified (principal)
CPT/HCPCS: 83993

== ENCOUNTER 2025-02-12 13:27 | Outpatient (AMB) | payer OTHER, SELFPAY ==
--- NOTE | 2025-02-12 13:30 | A.OFFVIS_ITS ---
Vital Signs 02/12/25 13:34 Height 5 ft 2 in Weight 119 lb 0.794 oz BMI 21.8 BP 114/80 Blood Pressure Location Lt brachial Position Sitting Pulse 80 Intake Visit Reasons: 3 wks , abd pain ,rectal bleeding, colitis Intake Note: Hosea presents in the office as a 3 week follow up. CC: Nausea but the antibiotic is helping other symptoms. He states he is having diarrhea. Very little spotting. Teacher Selection Specialist Required: Yes Teacher Selection Specialist Name: girlfriend Allergies amitriptyline Allergy (Severe, Verified 02/12/25 13:35) Confusion morphine (MORPHINE) Allergy (Severe, Verified 02/12/25 13:35) CONSTIPATION, stomach upset ibuprofen (From MOTRIN) Adverse Reaction (Intermediate, Verified 02/12/25 13:35) ABD PAIN cyclobenzaprine (From FLEXERIL) Adverse Reaction (Mild, Verified 02/12/25 13:35) DRY MOUTH influenza H1N1 Allergy (Intermediate, Uncoded 02/12/25 13:35) Weakness HPI HPI 3 wks , abd pain ,rectal bleeding, colitis: Details: Assessment & Plan (1) Colitis: Code(s): K52.9 - Noninfective gastroenteritis and colitis, unspecified Category: Medical (2) GERD (gastroesophageal reflux disease): Code(s): K21.9 - Gastro-esophageal reflux disease without esophagitis Category: Medical (3) Tubular adenoma of colon: Comment: ONE TA 2022 SCOPE REPEAT 5 YEARS Code(s): D12.6 - Benign neoplasm of colon, unspecified Category: Medical Plan [place] #[employer] HE IS HERE TODAY WITH HIS who is supportive. He was better with the augmentin, but as soon as he completed it the pain and bleeding returned. This is the only abx that worked so far. I am concerned that this may not be simple diverticulitis, and we may be dealing with early UC or Crohns. Getting crp, stool drea, and IBD genetics. He presented tot he ER and was given carafate (!, this would just worsen bleeding as he has no diarrhea), CT still concerning for colon thickening and he had a WBC of 11,000. In the meantime will give long course of augmentin and decide if prednisone is warranted. Ordering EGD/colonoscopy He has mild asthma and denies any cardiac problems. There are no prior problems with anesthesia or sedation. He had a history of genital herpes no other infectious disease problems. There is no known family history of colon cancer or polyps. ROV 3 weeks. Orders: Orders [facility] SGI Today K52.9 - Noninfective gastroenteritis and colitis, unspecified C Reactive Protein Today K52.9 - Noninfective gastroenteritis and colitis, unspecified Calprotectin, Fecal Today K52.9 - Noninfective gastroenteritis and colitis, unspecified EGD/[place] Combo - GI Use Only Today D12.6 - Benign neoplasm of colon, unspecified, K21.9 - Gastro-esophageal reflux disease without esophagitis, K52.9 - Noninfective gastroenteritis and colitis, unspecified Medications: New peg 3350-electrolytes 236-22.74-6.74 -5.86 gram (Golytely) until fecal effluent is clear; do not exceed a total volume of 2,000 mL 240 mL PO Q10M 4,000 mL 0RF 1 day Z12.11 - Encounter for screening for malignant neoplasm of colon bisacodyl (Dulcolax (bisacodyl)) 10 mg (2 x 5 mg) PO BEDTIME 4 tabs 0RF 2 days Changed From amoxicillin-pot clavulanate 875-125 mg 1 tab PO BID 14 days 28 tabs 0RF To amoxicillin-pot clavulanate 875-125 mg 1 tab PO BID 60 tabs 2RF 30 days Discontinued sucralfate Discontinued Reason: Doctor's Order 1 g PO TID 90 tabs 0RF LABS Laboratory Tests 01/20/25 01/21/25 15:28 11:08 C-Reactive Protein 0.22 Stool Calprotectin 13 [facility] genetic study NOT c/o IBD EGD/COLONOSCOPY BIOPSY TODAYS VISIT He continues on the augmentin and pain and bleeding is better. He has stopped the senna r/t soft stools, which is fine. He also has a new sx of nausea x 3 day - HOWEVER, he just completed a course of valcyclovir and this is a likely factor. He also is having a lot of bloating with fatty foods and sodas. For now I think he should avoid these triggers. He IS eating a probiotic yogurt daily. I really think he needs a probiotic pill supplement to offset the augmentin. I will give promethazine for prn nausea as he has used this in the past with good success. I gave him a full 30 days of augmentin 01/20 wiy 2 refills. I think we will try to give him a short steroid course when coming off of the abx. Consider this next month. ROV 6 weeks. [facility] Medical History Low testosterone Encounter for monitoring testosterone replacement therapy Upper abdominal pain Herpes simplex Rib pain on left side GERD (gastroesophageal reflux disease) Left inguinal hernia (04/26/24) Left groin hernia Screening PSA (prostate specific antigen) Constipation Depression with anxiety Asthma Colon cancer screening Pelvis, multiple open fractures with disruption of pelvic pechanga Failed spinal cord stimulator Surgical History Status post inguinal hernia repair using synthetic patch Postop check History of esophagogastroduodenoscopy (EGD) H/O colonoscopy History of arthroscopy of right knee History of back surgery H/O pelvic surgery H/O enucleation of left eyeball Social History Are you a primary home care manager rn to a significant other at home: No Do you presently have visiting nurse or other home services: No Alcohol intake: never Patient Tobacco Use Status: Current everyday Tobacco user Tobacco use type: Cigarette Cigarettes Per Day: 10 Review of Systems Const Denies fatigue, Denies fever(s), Denies night sweats, Denies poor appetite, Reports weight gain and Denies weight loss Eyes Reports requires corrective lenses ENT Reports Normal hearing present, Denies dental pain, Denies dysphagia, Denies hearing loss, Denies mouth pain, Denies odynophagia, Denies throat swelling, Denies tongue swelling and Reports other (Dentition adequate) Card Reports no additional complaints Resp Reports no additional complaints GI Details: Denies abdominal pain, Denies melena, Reports bloating, Denies hematochezia, Denies constipation, Denies GI cramping, Denies dysphagia, Denies excessive flatus, Denies early satiety, Reports heartburn, Denies diarrhea, Reports nausea, Denies odynophagia, Denies vomiting and Denies hematemesis Skin/Breast Denies pruritus, Denies lesions, Denies rash and Denies jaundice Neuro Reports Normal hearing present and Denies Abnormal speech present Endo Denies fatigue Aller/Immun Denies throat swelling and Denies tongue swelling Physical Exam Vital Signs: Last Vital Signs Pulse 80 02/12/25 13:34 BP 114/80 02/12/25 13:34 BMI result Body Mass Index 21.8 Const General: cooperative, no acute distress, well developed and well groomed Nutritional Appearance: well nourished Orientation/consciousness: oriented to person, oriented to place and oriented to time Limitations: language barrier HEENT Head: Yes normocephalic and Yes atraumatic Eyes General: dysmorphic Pupils: Equal, round and reactive pupils present Neck Neck: Yes normal visual inspection and Yes no lymphadenopathy Thyroid: Thyroid normal Resp Effort & Inspection: normal respiratory effort and able to speak in complete sentences Auscultation: clear to auscultation bilaterally Cardio Rate: regular rate Rhythm: regular rhythm Heart sounds: Normal, physiologic split S2 sound present Peripheral pulses: radial pulses present and posterior tibial pulses present GI Inspection: No distended and No Abdominal panniculus present Palpation (GI): Soft to palpation, nontender, no guarding, not rigid and No hepatosplenomegaly present Percussion: Yes normal to percussion Auscultation: normal bowel sounds Rectal Exam - Male: Yes deferred Skin General skin exam: no rashes or lesions noted, turgor normal, skin not dry, no jaundice, No spider nevi and no striae Rashes: no rashes Nails: normal Neuro General: oriented to person, oriented to place and oriented to time Cranial nerves: Yes Equal, round and reactive pupils present and Yes Normal hearing present Speech: No Abnormal speech present Extrem General: Yes normal to inspection, No clubbing, No cyanosis and No edema Psych Appearance: grossly normal and well kempt Mental Status: mental status grossly normal Speech and movement: Normal speech and movement present Affect: normal affect Attitude: cooperative Thought process: Normal thought process present and not confabulating Thought content: Normal thought content present Insight: Fair insight present (Psych) and Limited insight present (Psych) Judgement: Fair judgement present (Psych) and Limited judgement present (Psych) Assessment & Plan Assessment & Plan (1) Diverticulitis: Code(s): K57.92 - Diverticulitis of intestine, part unspecified, without perforation or abscess without bleeding Category: Medical (2) GERD (gastroesophageal reflux disease): Code(s): K21.9 - Gastro-esophageal reflux disease without esophagitis Category: Medical (3) Constipation: Code(s): K59.00 - Constipation, unspecified Category: Medical Plan He continues on the augmentin and pain and bleeding is better. He has stopped the senna r/t soft stools, which is fine. He also has a new sx of nausea x 3 day - HOWEVER, he just completed a course of valcyclovir and this is a likely factor. He also is having a lot of bloating with fatty foods and sodas. For now I think he should avoid these triggers. He IS eating a probiotic yogurt daily. I really think he needs a probiotic pill supplement to offset the augmentin. I will give promethazine for prn nausea as he has used this in the past with good success. I gave him a full 30 days of augmentin 01/20 wiyh 2 refills. I think we will try to give him a short steroid course when coming off of the abx. Consider this next month. ROV 6 weeks. Medications: New promethazine 25 mg PO BID PRN 60 tabs 1RF nausea and vomiting omeprazole 20 mg PO BID 60 caps 6RF 30 days K21.9 - Gastro-esophageal reflux disease without esophagitis L.acidoph,saliva-B.bif-S.therm 175 mg (Acidophilus Probiotic Blend) 1 cap PO DAILY 30 caps 6RF Discontinued pantoprazole (Protonix) Discontinued Reason: Doctor's Order 40 mg PO BID 30 days 60 tabs 6RF Coding Level of Care Code Est Pt Level 3 (12967) Diagnoses Diverticulitis K57.92 GERD (gastroesophageal reflux disease) K21.9 Constipation K59.00
--- OUTSIDE RECORDS SUMMARY | 2025-02-12 13:31 | XMS_ITS | Encounter Summary ---
Author Organization [employer] Address [address] [facility] [address] [place] [address] Care Team Providers Care Operations Management Professionals Name Role Phone Mely Vasquez MD Primary Care Provider [phone] Reason for Visit * Reason Onset Date Comments march02/11/2025 Encounter Details Date Type Department Care Team ([facility] Contact Info) Description 02/11/2025 Telephone [facility] MEDICINE [address] [place], [place] [phone] Mely Vasquez MD [address] [place], [place] [phone] march Social History Tobacco Use Types Packs/Day Years Used Date Smoking Tobacco: Every Day Cigarettes Passive Smoke Exposure: Current Smokeless Tobacco: Never Comments:8-9 cigs/daily; wor bruce on quitting. On chantix but 1mg made him sick. Pcp notified. Alcohol Use Standard Drinks/Week Comments Never 0 (1 standard drink = 0.6 oz pur e alcohol) Depression Answer Date Recorded Patient Health Questionnaire-9 Score 9 12/29/2024 Patient Health Questionnaire-9 Score 9 12/29/2024 Last PHQ-9: Questionnaire Data Not on file 0 12/29/2024 Housing Stability Answer Date Recorded What is your housing situation today? I have nydai orellana 12/29/[address] you li ve. Do you have problems with any of the following? None of the above 12/29/2024 Food Insecurity Answer Date Recorded Within the past 12 months, y ou worried that your food would run out before you got money to buy more: Never True 12/29/2024 Within the past 12 months,th e food you bought just didn't last and you didn't have enough money to get more: Never True 09/2024 Transportation Answer Date Recorded In the past 12 months, has l ack of transportation kept you from medical appts, meetings, work or from getting things needed for daily living? No 12/29/2024 Utilities Answer Date Recorded In the past 12 months, has t he electric, gas, oil or water company threatened to shut off services in your home? No 12/29/2024 Depression Answer Date Recorded Patient Health Questionnaire-2 Score 2 12/29/2024 Internet Access Answer Date Recorded Internet Access Q1 Yes 12/29/2024 Internet Access Q2 Not on file 12/29/2024 Sex and Gender Information Value Date Recorded Sex Assigned at Male 05/28/2022 10:23 AM EDT Legal Sex Male 10:23 AM EDT Gender Identity Male 05/28/2022 10:23 AM EDT Sexual Orientation Straight 05/28/2022 10 :23 AM EDT documented as of this encounter Miscellaneous Notes * Telephone Encounter - China Carrasquillo [place] - 02/11/2025 9:22 AM EDT ..Telephone call to patient to schedule the following recall: Visit type: Follow up Appointment notes: RV for Abdominal Pain Patient agree to appointment on 03/30 at 130 PM with Christina. documented in this encounter Plan of Treatment Upcoming Encounters Date Type Department Care Team (Late st Contact Info) Description 02/16/2025 11:00 AM EDT Office Visit [facility] MEDICINE [address] [place] [phone] 03/30/2025 1:30 PM EDT Office Visit [facility] MEDICINE [address] [place] [address] Mely Vasquez MD [address] [place] [phone] documented as of this encounter Visit Diagnoses Not on filedocumented in this encounter Additional Health Concerns Assessment Noted Time PHQ-9 Depression Total Score: 9 12/30/19 25 1:30 PM EDT documented as of this encounter Care Teams Operations Management Professionals Relationship Specialty Start Date End Date Mely Vasquez MD [address] [place] [address] PCP - General Family Medicine 05/11/21 documented as of this encounter
--- OUTSIDE RECORDS SUMMARY | 2025-02-12 13:31 | XMS_ITS | Clinical Summary ---
Author Organization [employer] [facility] it[facility] Address [address] [place] [address] Care Team Providers Care Diesel Technology Instructor Name Role Phone Unavailable Primary Care [...] (2023-2 5 season) 2024 Influenza Vaccine (#1) 2025 HIB Vaccines Aged Out No longer [...] 5 Years) and At-Risk Patients (6 to 49 Years) Aged Out No longer eligible b ased on patient's age to complete this topic RSV Immunization Patients Un mary 20 months Aged Out No longer eligible b ased on patient's age to complete this topic Varicella Vaccines Aged Out No longer eligible based on patient's age to complete this topic
[2025-02-12 13:34] VITALS: BP 114/80; PULSE 80; BMI 21.8
== END 2025-02-12 14:30 | disposition home or self-care (01) ==
PROVIDERS: PCP Family Medicine; Visit Provider Nurse Practitioner
DX: K57.92 Diverticulitis of intestine, part unspecified, without perforation or abscess without bleeding (principal); K21.9 Gastro-esophageal reflux disease without esophagitis; K59.00 Constipation, unspecified
CPT/HCPCS: 99213

== ENCOUNTER → 2025-02-12 13:27 | Outpatient (BNVA) | payer OTHER, SELFPAY | PROVIDERS: PCP Family Medicine; Visit Provider Nurse Practitioner | DX: K57.92 Diverticulitis of intestine, part unspecified, without perforation or abscess without bleeding (principal); K21.9 Gastro-esophageal reflux disease without esophagitis; K59.00 Constipation, unspecified | CPT/HCPCS: 99212 ==

== ENCOUNTER 2025-02-26 15:02 | Outpatient (AMB) | payer OTHER, SELFPAY ==
--- OUTSIDE RECORDS SUMMARY | 2025-02-26 15:04 | XMS_ITS | Clinical Summary ---
Author Organization [employer] [facility] ity Address [address] [place] [address] Care Team Providers Care Clinical Exercise Physiologist Name Role Phone Unavailable Primary Care Provider [...] 12/21/1994 COVID-19 Vaccine (2023-2 5 season) 2024 Depression Screening 07/29/2024 Influenza Vaccine (#1) 2025 HIB Vaccines Aged [...]
--- OUTSIDE RECORDS SUMMARY | 2025-02-26 15:04 | XMS_ITS | Encounter Summary ---
Author Organization [employer] Address [address] [facility] [facility] [address] [place] [address] Care Team Providers Care Alley Tender Name Role Phone Mely Vasquez MD Primary Care Provider [phone] Encounter Details Date Type Department Care Team (Latest Contact Info) Description 01/15/2025 Results Follow-Up [facility] MEDICINE [address] [place] [address] Mely Vasquez MD [address] [place], [place] [phone] TSH with Reflex to Free T4, Comprehensive Metabolic Panel, Lipid Panel with Reflex to Direct LDL, Vitamin D, 25-Hydroxy, Total, Immunoassay Social History Tobacco Use Types Packs/Day Years [...] housing situation today? I have nydia orellana 12/29/[address] you [...] Care Team (Late st Contact Info) Description 03/30/2025 1:30 PM EDT Office Visit [facility] MEDICINE [address] [place] [phone] Mely Vasquez MD [address] [place] [phone] 05/25/2025 11:00 AM EDT Office Visit [address] [address] documented as of this encounter Visit Diagnoses Not on filedocumented in this encounter Additional Health Concerns Assessment Noted Time PHQ-9 Depression Total Score: 9 12/30/19 25 1:30 PM EDT documented as of this encounter Care Teams Alley Tender Relationship Specialty Start Date End Date Mely Vasquez MD [address] [place] [phone] PCP - General Family Medicine 05/11/21 documented as of this encounter
[2025-02-26 15:06] VITALS: BP 104/81; PULSE 65; O2SAT 99; BMI 22.4
--- NOTE | 2025-02-26 15:06 | MHC.OFFVIS ---
Vital Signs 02/26/25 15:06 Height 5 ft 2 in Weight 122 lb 9.232 oz BMI 22.4 BP 104/81 Blood Pressure Location Lt brachial Position Sitting Pulse 65 Pulse Source Pulse Oximeter Pulse Oximetry (%) 99 Oxygen Delivery Method Room Air Intake Visit Reasons: Diarrhea, rectal bleeding Intake Note: Hosea presents to in office visit today in follow up diarrhea and rectal bleeding. CC: Patient c/o diarrhea x4 days with rectal bleeding, abdominal bloading. Steaming Cabinet Tender Required: Yes Accompanied by: Spouse Allergies amitriptyline Allergy (Severe, Verified 03/05/25 16:01) Confusion morphine (MORPHINE) Allergy (Severe, Verified 03/05/25 16:01) CONSTIPATION, stomach upset ibuprofen (From MOTRIN) Adverse Reaction (Intermediate, Verified 03/05/25 16:01) ABD PAIN cyclobenzaprine (From FLEXERIL) Adverse Reaction (Mild, Verified 03/05/25 16:01) DRY MOUTH influenza H1N1 Allergy (Intermediate, Uncoded 02/12/25 13:35) Weakness HPI HPI Diarrhea, rectal bleeding: Details: Assessment & Plan (1) Diverticulitis: Code(s): K57.92 - Diverticulitis of intestine, part unspecified, without perforation or abscess without bleeding Category: Medical (2) GERD (gastroesophageal reflux disease): Code(s): K21.9 - Gastro-esophageal reflux disease without esophagitis Category: Medical (3) Constipation: Code(s): K59.00 - Constipation, unspecified Category: Medical Plan He continues on the augmentin and pain and bleeding is better. He has stopped the senna r/t soft stools, which is fine. He also has a new sx of nausea x 3 day - HOWEVER, he just completed a course of valcyclovir and this is a likely factor. He also is having a lot of bloating with fatty foods and sodas. For now I think he should avoid these triggers. He IS eating a probiotic yogurt daily. I really think he needs a probiotic pill supplement to offset the augmentin. I will give promethazine for prn nausea as he has used this in the past with good success. I gave him a full 30 days of augmentin 01/20 wiyh 2 refills. I think we will try to give him a short steroid course when coming off of the abx. Consider this next month. ROV 6 weeks. Medications: New promethazine 25 mg PO BID PRN 60 tabs 1RF nausea and vomiting omeprazole 20 mg PO BID 60 caps 6RF 30 days K21.9 - Gastro-esophageal reflux disease without esophagitis L.acidoph,saliva-B.bif-S.therm 175 mg (Acidophilus Probiotic Blend) 1 cap PO DAILY 30 caps 6RF Discontinued pantoprazole (Protonix) Discontinued Reason: Doctor's Order 40 mg PO BID 30 days 60 tabs 6RF TODAYS VISIT Urugu[place] #Butch Live 4 days sudden onset of diarrhea and severe bloating and pain in the upper abdomen left side but also as a band across. This despite taking the augmentin w/o interruption. Will start prednisone. ROV next Saturday. [facility] Medical History (Updated 03/05/25 @ 16:01 by MARGARET Hill) Abdominal pain Low testosterone Encounter for monitoring testosterone replacement therapy Upper abdominal pain Herpes simplex Rib pain on left side GERD (gastroesophageal reflux disease) Left inguinal hernia (04/26/24) Left groin hernia Screening PSA (prostate specific antigen) Constipation Depression with anxiety Asthma Colon cancer screening Pelvis, multiple open fractures with disruption of pelvic atka Failed spinal cord stimulator Surgical History Status post inguinal hernia repair using synthetic patch Postop check History of esophagogastroduodenoscopy (EGD) H/O colonoscopy History of arthroscopy of right knee History of back surgery H/O pelvic surgery H/O enucleation of left eyeball Social History Are you a primary hospice care transitions coordinator to a significant other at home: No Do you presently have visiting nurse or other home services: No Alcohol intake: never Patient Tobacco Use Status: Current everyday Tobacco user Tobacco use type: Cigarette Cigarettes Per Day: 10 Physical Exam Vital Signs: Last Vital Signs Pulse 65 02/26/25 15:06 BP 104/81 02/26/25 15:06 Pulse Ox 99 02/26/25 15:06 Oxygen Delivery Method Room Air 02/26/25 15:06 BMI result Body Mass Index 22.4 Assessment & Plan Assessment & Plan (1) Colitis: Code(s): K52.9 - Noninfective gastroenteritis and colitis, unspecified Category: Medical (2) Nausea and vomiting: Code(s): R11.2 - Nausea with vomiting, unspecified Category: Medical (3) Abdominal pain: Code(s): R10.9 - Unspecified abdominal pain Category: Medical Qualifiers: Abdominal location: unspecified location Qualified Code(s): R10.9 - Unspecified abdominal pain Plan [place] #Butch Live He is here today with his who is supportive 4 days sudden onset of diarrhea and severe bloating and pain in the upper abdomen left side but also as a band across. This despite taking the augmentin w/o interruption. Will start prednisone. He was having good relief with the Augmentin therapy and now I am uncertain if this may be inflammatory bowel disease. I think the best way to see is if the prednisone improves his symptoms then we can assume that this maybe the diagnosis. I do have some doubts given that his fecal calprotectin was normal. If he fails to improve then we need to look elsewhere. I want to see him back quickly since his symptoms seem to be so severe and he knows to go to the ER if he has nausea vomiting or increasingly severe pain. ROV next Saturday. Orders: Orders CT abdomen pelvis w IV con 02/26/25 R10.9 - Unspecified abdominal pain Medications: New promethazine 3 doses during day; last dose no later than 4 hr before bedtime 6.25 mg (1/2 x 12.5 mg) PO TID PRN 90 tabs 3RF allergy symptoms R11.2 - Nausea with vomiting, unspecified prednisone 60 mg (3 x 20 mg) PO DAILY 90 tabs 3RF K52.9 - Noninfective gastroenteritis and colitis, unspecified Discontinued promethazine Discontinued Reason: Doctor's Order 25 mg PO BID PRN 60 tabs 1RF nausea and vomiting On Hold amoxicillin-pot clavulanate 875-125 mg Hold Comment: Doctor's Order 1 tab PO BID 30 days 60 tabs 2RF prednisone Hold Comment: Doctor's Order 60 mg (3 x 20 mg) PO DAILY 90 tabs 3RF K52.9 - Noninfective gastroenteritis and colitis, unspecified promethazine Hold Comment: Doctor's Order 6.25 mg (1/2 x 12.5 mg) PO TID PRN 90 tabs 3RF allergy symptoms R11.2 - Nausea with vomiting, unspecified Coding Level of Care Code Est Pt Level 3 (13747) Diagnoses Colitis K52.9 Nausea and vomiting R11.2 Abdominal pain R10.9 Abdominal location: unspecified location
== END 2025-02-26 16:11 | disposition home or self-care (01) ==
PROVIDERS: PCP Family Medicine; Visit Provider Nurse Practitioner
DX: K52.9 Noninfective gastroenteritis and colitis, unspecified (principal); R11.2 Nausea with vomiting, unspecified; R10.9 Unspecified abdominal pain
CPT/HCPCS: 99213

== ENCOUNTER → 2025-02-26 15:02 | Outpatient (BNVA) | payer OTHER, SELFPAY | PROVIDERS: PCP Family Medicine; Visit Provider Nurse Practitioner | DX: R11.0 Nausea (principal); R10.9 Unspecified abdominal pain; K52.9 Noninfective gastroenteritis and colitis, unspecified; R11.2 Nausea with vomiting, unspecified | CPT/HCPCS: 99212 ==

== ENCOUNTER 2025-03-05 15:49 | Outpatient (AMB) | payer OTHER, SELFPAY ==
--- OUTSIDE RECORDS SUMMARY | 2025-03-05 15:52 | XMS_ITS | Encounter Summary ---
Author Organization [employer] Address [address] [facility] [address] [place] [address] Care Team Providers Care Developer Trading Systems Name Role Phone Mely Vasquez MD Primary Care Provider [phone] Encounter Details Date Type Department Care Team (Latest Contact Info) Description 01/15/2025 Results Follow-Up [facility] MEDICINE [address] [place] [address] Mely Vasquez MD [address] [place], [place] [phone] TSH with Reflex to Free T4, Comprehensive [...] Description 03/30/2025 1:30 PM EDT Office Visit [facility] MEDICINE [address] [place] [phone] Mely Vasquez MD [address] [place] [phone] 05/25/2025 11:00 AM EDT Office Visit [address] [address] documented as of this encounter Visit Diagnoses Not on filedocumented in this encounter Additional Health Concerns Assessment Noted Time PHQ-9 Depression Total Score: 9 12/30/19 25 1:30 PM EDT documented as of this encounter Care Teams Developer Trading Systems Relationship Specialty Start Date End Date Meyl Vasquez MD [address] [place] [id number] PCP - General Family Medicine 05/11/21 documented as of this encounter
--- OUTSIDE RECORDS SUMMARY | 2025-03-05 15:52 | XMS_ITS | Clinical Summary ---
Author Organization [employer] [facility] ity Address [address] [place] [address] Care Team Providers Care Industry Operations Investigator Name Role Phone Unavailable Primary Care Provider [...]
[2025-03-05 15:56] VITALS: BP 112/71; PULSE 72; BMI 22.9
--- NOTE | 2025-03-05 15:56 | A.OFFVIS_ITS ---
Vital Signs 03/05/25 15:56 Height 5 ft 2 in Weight 125 lb 3.561 oz BMI 22.9 BP 112/71 Blood Pressure Location Rt brachial Position Sitting Pulse 72 Intake Visit Reasons: 1 wk f/u from 02/26 Intake Note: Hosea returns to in office follow up of colitis. CC: Patient reports that he continues having rectal bleeding, abd pain after eating, and feeling like he is having incomplete BMs. Patient states that he hasn't notice any improvement with the Prednisone. Software Development Manager Required: Yes Accompanied by: Spouse Allergies amitriptyline Allergy (Severe, Verified 03/05/25 16:01) Confusion morphine (MORPHINE) Allergy (Severe, Verified 03/05/25 16:01) CONSTIPATION, stomach upset ibuprofen (From MOTRIN) Adverse Reaction (Intermediate, Verified 03/05/25 16:01) ABD PAIN cyclobenzaprine (From FLEXERIL) Adverse Reaction (Mild, Verified 03/05/25 16:01) DRY MOUTH influenza H1N1 Allergy (Intermediate, Uncoded 02/12/25 13:35) Weakness HPI HPI 1 wk f/u from 02/26: Details: Assessment & Plan (1) Colitis: Code(s): K52.9 - Noninfective gastroenteritis and colitis, unspecified Category: Medical (2) Nausea and vomiting: Code(s): R11.2 - Nausea with vomiting, unspecified Category: Medical (3) Abdominal pain: Code(s): R10.9 - Unspecified abdominal pain Category: Medical Qualifiers: Abdominal location: unspecified location Qualified Code(s): R10.9 - Unspecified abdominal pain Orders: Orders CT abdomen pelvis w IV con Today R10.9 - Unspecified abdominal pain Medications: New promethazine 3 doses during day; last dose no later than 4 hr before bedtime 6.25 mg (1/2 x 12.5 mg) PO TID PRN 90 tabs 3RF allergy symptoms R11.2 - Nausea with vomiting, unspecified prednisone 60 mg (3 x 20 mg) PO DAILY 90 tabs 3RF K52.9 - Noninfective gastroenteritis and colitis, unspecified Discontinued promethazine Discontinued Reason: Doctor's Order 25 mg PO BID PRN 60 tabs 1RF nausea and vomiting [place]inese #Butch Live 4 days sudden onset of diarrhea and severe bloating and pain in the upper abdomen left side but also as a band across. This despite taking the augmentin w/o interruption. Will start prednisone. ROV next Saturday. CT ABDOMEN AND PELVIS TODAY'S VISIT Beninese # translates oer pt request No difference with prednisone. At this point, I think we should stop both thte augmentin and the prednisone. He has mostly upper abd bloating after eating and early satiety. Associated nausea. I will get GES and a trial of reglan. At this point I want him to also see a MD for second opinion as I am not getting to the root cause. He already has an appointment with me 03/25 Next appt with . [facility] Medical History (Updated 03/05/25 @ 16:01 by MARGARET Hill) Abdominal pain Low testosterone Encounter for monitoring testosterone replacement therapy Upper abdominal pain Herpes simplex Rib pain on left side GERD (gastroesophageal reflux disease) Left inguinal hernia (04/26/24) Left groin hernia Screening PSA (prostate specific antigen) Constipation Depression with anxiety Asthma Colon cancer screening Pelvis, multiple open fractures with disruption of pelvic white earth Failed spinal cord stimulator Surgical History Status post inguinal hernia repair using synthetic patch Postop check History of esophagogastroduodenoscopy (EGD) H/O colonoscopy History of arthroscopy of right knee History of back surgery H/O pelvic surgery H/O enucleation of left eyeball Social History Are you a primary palliative care physician to a significant other at home: No Do you presently have visiting nurse or other home services: No Alcohol intake: never Patient Tobacco Use Status: Current everyday Tobacco user Tobacco use type: Cigarette Cigarettes Per Day: 10 Review of Systems Const Denies fatigue, Denies fever(s), Denies night sweats, Denies poor appetite and Denies weight loss Eyes Reports loss of vision ENT Reports Normal hearing present, Denies dental pain, Denies dysphagia, Denies hearing loss, Denies mouth pain, Denies odynophagia, Denies throat swelling, Denies tongue swelling and Reports other (Dentition adequate) Card Reports no additional complaints Resp Reports no additional complaints GI Details: Reports abdominal pain, Denies melena, Reports bloating, Reports hematochezia, Denies constipation, Denies GI cramping, Denies dysphagia, Denies excessive flatus, Reports early satiety, Reports heartburn, Denies diarrhea, Denies nausea, Denies odynophagia, Denies vomiting and Denies hematemesis Skin/Breast Denies pruritus, Denies lesions, Denies rash and Denies jaundice Neuro Reports Normal hearing present, Denies Abnormal speech present and Reports loss of vision Endo Denies fatigue Aller/Immun Denies throat swelling and Denies tongue swelling Physical Exam Const General: cooperative, no acute distress, well developed and well groomed Nutritional Appearance: average body habitus and well nourished Orientation/consciousness: oriented to person, oriented to place and oriented to time Limitations: language barrier HEENT Head: Yes normocephalic and Yes atraumatic Eyes General: appearance normal, both eyes and all related structures Pupils: Equal, round and reactive pupils present Neck Neck: Yes normal visual inspection and Yes no lymphadenopathy Thyroid: Thyroid normal Resp Effort & Inspection: normal respiratory effort and able to speak in complete sentences Auscultation: clear to auscultation bilaterally Cardio Rate: regular rate Rhythm: regular rhythm Heart sounds: Normal, physiologic split S2 sound present Peripheral pulses: radial pulses present and posterior tibial pulses present GI Inspection: Yes distended and No Abdominal panniculus present Palpation (GI): Soft to palpation, nontender, no guarding, not rigid and No hepatosplenomegaly present Percussion: Yes normal to percussion Auscultation: normal bowel sounds Rectal Exam - Male: Yes deferred Skin General skin exam: no rashes or lesions noted, turgor normal, skin not dry, no jaundice, No spider nevi and no striae Rashes: no rashes Nails: normal Neuro General: oriented to person, oriented to place and oriented to time Cranial nerves: Yes Equal, round and reactive pupils present and Yes Normal hearing present Speech: No Abnormal speech present Extrem General: Yes normal to inspection, No clubbing, No cyanosis and No edema Psych Appearance: grossly normal and well kempt Mental Status: mental status grossly normal Speech and movement: Normal speech and movement present Affect: normal affect Attitude: cooperative Thought process: Circumstantial thought process present and not confabulating Thought content: Normal thought content present Insight: Limited insight present (Psych) Judgement: Limited judgement present (Psych) Assessment & Plan Assessment & Plan (1) Diverticulitis: Code(s): K57.92 - Diverticulitis of intestine, part unspecified, without perforation or abscess without bleeding Category: Medical (2) Colitis: Code(s): K52.9 - Noninfective gastroenteritis and colitis, unspecified Category: Medical (3) Rectal bleeding: Code(s): K62.5 - Hemorrhage of anus and rectum Category: Medical (4) Nausea and vomiting: Code(s): R11.2 - Nausea with vomiting, unspecified Category: Medical Plan Beninese # translates oer pt request No difference with prednisone. At this point, I think we should stop both thte augmentin and the prednisone. He has mostly upper abd bloating after eating and early satiety. Associated nausea. I will get GES and a trial of reglan. At this point I want him to also see a MD for second opinion as I am not getting to the root cause. He already has an appointment with me 03/[address] with MD. CT ABDOMEN AND PELVIS EGD/colonoscopy Biopsy Orders: Orders NM gastric emptying study Today R11.2 - Nausea with vomiting, unspecified Medications: New metoclopramide HCl (Reglan) 5 mg PO QIDACHS 120 tabs 6RF R11.2 - Nausea with vomiting, unspecified On Hold amoxicillin-pot clavulanate 875-125 mg Hold Comment: Doctor's Order 1 tab PO BID 60 tabs 2RF 30 days prednisone Hold Comment: Doctor's Order 60 mg (3 x 20 mg) PO DAILY 90 tabs 3RF K52.9 - Noninfective gastroenteritis and colitis, unspecified promethazine Hold Comment: Doctor's Order 6.25 mg (1/2 x 12.5 mg) PO TID PRN 90 tabs 3RF allergy symptoms R11.2 - Nausea with vomiting, unspecified Coding Level of Care Code Est Pt Level 3 (43132) Diagnoses Diverticulitis K57.92 Colitis K52.9 Rectal bleeding K62.5 Nausea and vomiting R11.2
== END 2025-03-05 16:50 | disposition home or self-care (01) ==
LOC: HO.HGI 15:49
PROVIDERS: PCP Family Medicine; Visit Provider Nurse Practitioner
DX: K57.92 Diverticulitis of intestine, part unspecified, without perforation or abscess without bleeding (principal); K52.9 Noninfective gastroenteritis and colitis, unspecified; K62.5 Hemorrhage of anus and rectum; R11.2 Nausea with vomiting, unspecified
CPT/HCPCS: 99213

== ENCOUNTER → 2025-03-05 15:49 | Outpatient (BNVA) | payer OTHER, SELFPAY | PROVIDERS: PCP Family Medicine; Visit Provider Nurse Practitioner | DX: K57.92 Diverticulitis of intestine, part unspecified, without perforation or abscess without bleeding (principal); K52.9 Noninfective gastroenteritis and colitis, unspecified; K62.5 Hemorrhage of anus and rectum; R11.2 Nausea with vomiting, unspecified | CPT/HCPCS: 99212 ==

== ENCOUNTER 2025-03-19 15:27 | Outpatient (AMB) | payer OTHER, SELFPAY ==
--- OUTSIDE RECORDS SUMMARY | 2025-03-19 15:29 | XMS_ITS | Encounter Summary ---
Author Organization [employer] Address [address] [facility] [address] [place] [address] Care Team Providers Care Residential Caregiver Name Role Phone Mely Vasquez MD Primary Care Provider [phone] Encounter Details Date Type Department Care Team (Latest Contact Info) Description 01/15/2025 Results Follow-Up [facility] MEDICINE [address] [place] [address] Mely Vasquez MD [address] [place], [place] [phone] TSH with Reflex to Free T4, Comprehensive [...] Description 03/30/2025 1:30 PM EDT Office Visit [facility] MEDICINE [address] [place] [phone] eMly Vasquez MD [address] [place] [phone] 05/25/2025 11:00 AM EDT Office Visit [address] [address] documented as of this encounter Visit Diagnoses Not on filedocumented in this encounter Additional Health Concerns Assessment Noted Time PHQ-9 Depression Total Score: 9 12/30/19 25 1:30 PM EDT documented as of this encounter Care Teams Residential Caregiver Relationship Specialty Start Date End Date Mely Vasquez MD [address] [place] [id number] PCP - General Family Medicine 05/11/21 documented as of this encounter
--- OUTSIDE RECORDS SUMMARY | 2025-03-19 15:29 | XMS_ITS | Clinical Summary ---
Author Organization [employer] [facility] ity Address [address] [place] [address] Care Team Providers Care Children'S Tutor Nursery Name Role Phone Unavailable Primary Care Provider [...]
--- NOTE | 2025-03-19 16:13 | MHC.OFFVIS ---
Intake Visit Reasons: 3m/ PVR Intake Note: Patient is present for 3M/PVR Urology Medication:None Antibiotic Allergy:NONE Blood Thinner:NONE PVR:21ML Precision Thread Grinder Operator Required: No Allergies amitriptyline Allergy (Severe, Verified 03/19/25 16:19) Confusion morphine (MORPHINE) Allergy (Severe, Verified 03/19/25 16:19) CONSTIPATION, stomach upset ibuprofen (From MOTRIN) Adverse Reaction (Intermediate, Verified 03/19/25 16:19) ABD PAIN cyclobenzaprine (From FLEXERIL) Adverse Reaction (Mild, Verified 03/19/25 16:19) DRY MOUTH influenza H1N1 Allergy (Intermediate, Uncoded 02/12/25 13:35) Weakness Medication List - Last Reconciled 03/19/25 by Rita Edwards MD acetaminophen 500 mg PO Q6H PRN albuterol sulfate 90 mcg/actuation 2 puffs inhalation Q4-6H PRN alprazolam 0.5 mg PO DAILY PRN amoxicillin-pot clavulanate 875-125 mg 1 tab PO BID 30 days Held on 03/05/25. Instructions: Doctor's Order bisacodyl (Dulcolax (bisacodyl)) 10 mg (2 x 5 mg) PO BEDTIME 2 days cetirizine 10 mg PO QAM cholecalciferol (vitamin D3) 50 mcg PO DAILY famotidine (Pepcid) 40 mg PO BEDTIME hydrocortisone 2.5% (Proctosol HC) 1 appl WA BID L.acidoph,saliva-B.bif-S.therm 175 mg (Acidophilus Probiotic Blend) 1 cap PO DAILY lidocaine 5% (Lidoderm) 1 patch topical DAILY metoclopramide HCl (Reglan) 5 mg PO QIDACHS omeprazole 20 mg PO BID 30 days oxycodone 15 mg PO TID PRN peg 3350-electrolytes 236-22.74-6.74 -5.86 gram (Golytely) 240 mL PO Q10M 1 day prednisone 60 mg (3 x 20 mg) PO DAILY Held on 03/05/25. Instructions: Doctor's Order promethazine 6.25 mg (1/2 x 12.5 mg) PO TID PRN Held on 03/05/25. Instructions: Doctor's Order sennosides (senna) 17.2 mg (2 x 8.6 mg) PO BEDTIME testosterone 2 pumps topical DAILY 30 days valacyclovir 500 mg PO DAILY valsartan 40 mg PO DAILY HPI Comments Details: 03/19/25--states that testosterone was not refilled because insurance required a prior authorization Complains of difficulty with erections improved with testosterone replacement but still not adequate erections for intercourse When he has the VESIcare he had more difficulty in emptying the bladder so he stopped the medication now he feels that bladder symptoms are not bothersome. Will check repeat testosterone levels and PSA Start Cialis 5 mg daily and re-evaluate for testosterone replacement after review of blood work. 12/16/24--Hosea is followed for low testosterone, LUTS of frequency and urgency. FU renal US-10/27/24 - Results discussed - Kidneys WNL, negative for renal calculi. Trial Vesicare for OAB symptoms. 08/31/24--telehealth video follow-up low testosterone, I have reviewed testosterone levels have improved total testosterone is greater than 500. The patient states he still has problems with erections. He also is complaining of urinary frequency and urgency. He denies dysuria. I will have him follow-up to check urine and will also evaluate kidneys and bladder ultrasound prior. Consider addition of Cialis daily 5 mg in addition to testosterone replacement. 04/10/24--Telehealth fu, reviewed labs, PSA - 03/20/24- 0.58 ng/mL. Total and Free testosterone is low, 385 and 63.5. Discussed testosterone replacement therapy. 01/09/24--Hosea is here for evaluation for enlarged prostate. He complains of weak urinary stream and nocturia. He also has complaints of erectile dysfunction, not able to maintain an erection. Discussed trial of tamsulosin. Will check hormone levels, including free and total testosterone and PSA screening. [facility] Medical History (Updated 03/19/25 @ 16:32 by Rita Edwards MD) Screening PSA (prostate specific antigen) Low testosterone Abdominal pain Encounter for monitoring testosterone replacement therapy Upper abdominal pain Herpes simplex Rib pain on left side GERD (gastroesophageal reflux disease) Left inguinal hernia (04/26/24) Left groin hernia Constipation Depression with anxiety Asthma Colon cancer screening Pelvis, multiple open fractures with disruption of pelvic samish Failed spinal cord stimulator Surgical History Status post inguinal hernia repair using synthetic patch Postop check History of esophagogastroduodenoscopy (EGD) H/O colonoscopy History of arthroscopy of right knee History of back surgery H/O pelvic surgery H/O enucleation of left eyeball Social History Are you a primary spiritual care coordinator to a significant other at home: No Do you presently have visiting nurse or other home services: No Alcohol intake: never Patient Tobacco Use Status: Current everyday Tobacco user Tobacco use type: Cigarette Cigarettes Per Day: 10 Results AMB Urinalysis, Automated UA Leukoctes 0 Judie/uL Last Edit by Rashmi Washington on 03/19/25 17:24 UA Nitrite Negative Last Edit by Rashmi Washington on 03/19/25 17:24 UA Urobilinogen 3.5 mg/dL Last Edit by Rashmi Washington on 03/19/25 17:24 UA Protein 15 mg/dL Last Edit by Rashmi Washington on 03/19/25 17:24 UA pH 6.0 Last Edit by Rashmi Washington on 03/19/25 17:24 UA Blood 0 Deangelo/uL Last Edit by Rashmi Washington on 03/19/25 17:24 UA Specific Butler 1.015 Last Edit by Rashmi Washington on 03/19/25 17:24 UA Ketone Positive Last Edit by Rashmi Washington on 03/19/25 17:24 UA Bilirubin 0 mg/dL Last Edit by Rashmi Washington on 03/19/25 17:24 UA Glucose 0 mg/dL Last Edit by Rashmi Washington on 03/19/25 17:24 Assessment & Plan Assessment & Plan (1) Low testosterone: Code(s): R79.89 - Other specified abnormal findings of blood chemistry Category: Medical Orders: Orders AMB Urinalysis Automated Today - Other specified abnormal findings of blood chemistry, Z13.9 - Encounter for screening, unspecified Testosterone, Free/Total Today - Other specified abnormal findings of blood chemistry PSA,Total (Free>4and<10) Today - Other specified abnormal findings of blood chemistry Medications: Refilled testosterone 2 pumps topical DAILY 30 days 75 grams 2RF - Other specified abnormal findings of blood chemistry Coding Diagnoses Low testosterone R79.89
== END 2025-03-19 17:23 | disposition home or self-care (01) ==
LOC: HO.HUSH 15:27
PROVIDERS: PCP Family Medicine; Visit Provider Urology
DX: Z13.9 Encounter for screening, unspecified (principal); R79.89 Other specified abnormal findings of blood chemistry

== ENCOUNTER → 2025-03-19 15:27 | Outpatient (BNVA) | payer OTHER, SELFPAY | PROVIDERS: PCP Family Medicine; Visit Provider Urology | DX: E29.1 Testicular hypofunction (principal); R79.89 Other specified abnormal findings of blood chemistry | CPT/HCPCS: 81003; 99212 ==

== ENCOUNTER 2025-03-23 14:12 | Outpatient (REF) | payer OTHER, SELFPAY ==
--- OUTSIDE RECORDS SUMMARY | 2025-03-23 15:10 | XMS_ITS | Encounter Summary ---
Author Organization [employer] Address 75 [facility] 7t [place] [address] Care Team Providers Care Research Associate Molecular Biology Name Role Phone Mely Vasquez MD Primary Care Provider [phone] Reason for Visit * Reason Onset Date Comments Med Refill 03/09/2025 Encounter Details Date Type Department Care Team ([facility] st Contact Info) Description 03/09/2025 Telephone [facility]INE [address] [place], [place] [phone] Mely Vasquez MD [address] [place], [place] [phone] Med Refill Social History Tobacco Use Types [...] * Telephone Encounter - Caryl Sanchez - 03/09/2025 8:11 AM EDT TC from pt requesting medication refill. Medications needing refill : - oxyCODONE (Roxicodone) 15 MG immediate release tablet To be sent to: - [facility]/pharmacy #[id number] documented in this encounter Plan of Treatment Upcoming Encounters Date Type Department Care Team (Late st Contact Info) Description 03/30/2025 1:30 PM EDT Office Visit [facility] [address] [place] [address] Mely Vasquez MD [address] [place] [address] 05/25/2025 11:00 AM EDT Office Visit [facility] [address] [place] [address] documented as of this encounter Visit Diagnoses Not on filedocumented in this encounter Additional Health Concerns Assessment Noted Time PHQ-9 Depression Total Score: 9 12/30/19 25 1:30 PM EDT documented as of this encounter Care Teams Research Associate Molecular Biology Relationship Specialty Start Date End Date Mely Vasquez MD [address] [place] [address] PCP - General Family Medicine 05/11/21 documented as of this encounter
--- OUTSIDE RECORDS SUMMARY | 2025-03-23 15:10 | XMS_ITS | Encounter Summary ---
Author Organization [employer] Address 75 [facility] 7t [place] [address] Care Team Providers Care Ball Worker Name Role Phone Mely Vasquez MD Primary Care Provider [phone] Reason for Visit * Reason Onset Date Comments Med Refill 01/01/2024 Encounter Details Date Type Department Care Team ([facility] st Contact Info) Description 01/01/2024 Telephone [facility] MEDICINE 230 [place], [place] [phone] Mely Vasquez MD 230 [place], [place] [phone] Med Refill Social History Tobacco Use Types [...] immediate release tablet To be sent to: [facility]/pharmacy #[id number] [place] [address] documented in this encounter Plan of Treatment Upcoming Encounters Date Type Department Care Team (Late st Contact Info) Description 03/30/2025 1:30 PM EDT Office Visit [facility] [address] [place] [address] Mely Vasquez MD [address] [place] [address] 05/25/2025 11:00 AM EDT Office Visit [facility] [address] [place] [address] documented as of this encounter Visit Diagnoses Not on filedocumented in this encounter Additional Health Concerns Assessment Noted Time PHQ-9 Depression Total Score: 0 02/27/20 23 3:09 PM EDT documented as of this encounter Care Teams Ball Worker Relationship Specialty Start Date End Date Mely Vasquez MD [address] [place] [address] PCP - General Family Medicine 05/11/21 documented as of this encounter
--- OUTSIDE RECORDS SUMMARY | 2025-03-23 15:10 | XMS_ITS | Encounter Summary ---
Author Organization [employer] Address 75 [facility] 7t [place] [address] Care Team Providers Care Perinatal Coordinator Name Role Phone Mely Vasquez MD Primary Care Provider [phone] Reason for Visit * Reason Onset Date Comments Med Refill 12/10/2024 Encounter Details Date Type Department Care Team ([facility] st Contact Info) Description 12/10/2024 Telephone [facility] MEDICINE 230 [place], [place] [phone] Mely Vasquez MD 230 [place], [place] [phone] Med Refill Social History Tobacco Use Types [...] immediate release tablet To be sent to: [facility]/pharmacy #[address] [place] [address] * Telephone Encounter - Kami Serrano - 12/10/2024 8:41 AM EDT TC from pt requesting medication refill. Medications needing refill : oxyCODONE (Roxicodone) 15 MG immediate release tablet To be sent to: [facility]/pharmacy #[address] [place] [address] too soon for refill. Pt was advised. documented in this encounter Plan of Treatment Upcoming Encounters Date Type Department Care Team (Late st Contact Info) Description 03/30/2025 1:30 PM EDT Office Visit [facility] MEDICINE 230 [place], [place] [phone] Mely Vasquez MD [address] [place], [place] [phone] 05/25/2025 11:00 AM EDT Office Visit [facility] MED[facility]INE 230 [place] [address] documented as of this encounter Visit Diagnoses Not on filedocumented in this encounter Additional Health Concerns Assessment Noted Time PHQ-9 Depression Total Score: 0 02/27/20 23 3:09 PM EDT documented as of this encounter Care Teams Perinatal Coordinator Relationship Specialty Start Date End Date Mely Vasquez MD 230 [place] [address] PCP - General Family Medicine 05/11/21 documented as of this encounter
--- OUTSIDE RECORDS SUMMARY | 2025-03-23 15:10 | XMS_ITS | Encounter Summary ---
Author Organization [employer] Address [address] [facility] [address] 7t [place] [address] Care Team Providers Care Circulation Man Name Role Phone Mely Vasquez MD Primary Care Provider [phone] Reason for Visit * Reason Onset Date Comments Reschedule 12/04/2023 Encounter Details Date Type Department Care Team ([facility] st Contact Info) Description 12/04/2023 Telephone [facility] MEDICINE 230 [place], [place] [phone] Mely Vasquez MD 230 [place], [place] [phone] Reschedule Social History Tobacco Use Types Packs/Day [...] AM EDT Tc from pt requesting r/s [employer] appt documented in this encounter Plan of Treatment Upcoming Encounters Date Type Department Care Team (Late st Contact Info) Description 03/30/2025 1:30 PM EDT Office Visit [facility] MED[facility] [address] [place] [address] Mely Vasquez MD [address] [place] [address] 05/25/2025 11:00 AM EDT Office Visit [address] [address] documented as of this encounter Visit Diagnoses Not on filedocumented in this encounter Additional Health Concerns Assessment Noted Time PHQ-9 Depression Total Score: 0 02/27/20 23 3:09 PM EDT documented as of this encounter Care Teams Circulation Man Relationship Specialty Start Date End Date Mely Vasquez MD [address] [place] [address] PCP - General Family Medicine 05/11/21 documented as of this encounter
--- OUTSIDE RECORDS SUMMARY | 2025-03-23 15:10 | XMS_ITS | Encounter Summary ---
Author Organization [employer] Address [address] [facility] [address] 7t [place] [address] Care Team Providers Care Touch Up Worker Name Role Phone Mely Vasquez MD Primary Care Provider [phone] Reason for Visit * Reason Onset Date Comments Med Refill 06/09/2024 Encounter Details Date Type Department Care Team ([facility] st Contact Info) Description 06/09/2024 Telephone [facility] MEDICINE 230 [place], [place] [phone] Mely Vasquez MD 230 [place], [place] [phone] Med Refill Social History Tobacco Use Types [...] immediate release tablet To be sent to: [facility]/pharmacy #[id number] [place] [address] - [address] [place] [address] documented in this encounter Plan of Treatment Upcoming Encounters Date Type Department Care Team (Late st Contact Info) Description 03/30/2025 1:30 PM EDT Office Visit [facility] MEDICINE [address] [place] [address] Mely Vasquez MD [address] [place] [address] 05/25/2025 11:00 AM EDT Office Visit [facility] MED[facility]INE [address] [place] [address] documented as of this encounter Visit Diagnoses Not on filedocumented in this encounter Additional Health Concerns Assessment Noted Time PHQ-9 Depression Total Score: 0 02/27/20 23 3:09 PM EDT documented as of this encounter Care Teams Touch Up Worker Relationship Specialty Start Date End Date Mely Vasquez MD [address] [place] [address] PCP - General Family Medicine 05/11/21 documented as of this encounter
--- OUTSIDE RECORDS SUMMARY | 2025-03-23 15:10 | XMS_ITS | Encounter Summary ---
Author Organization [employer] Address 75 [facility] 7t [place] [address] Care Team Providers Care Clinic Business Manager Name Role Phone Mely Vasquez MD Primary Care Provider [phone] Reason for Visit * Reason Onset Date Comments Appointment Request 12/31/2024 Encounter Details Date Type Department Care Team ([facility] Contact Info) Description 12/31/2024 Telephone [facility] MEDICINE 230 [place], [place] [phone] Mely Vasquez MD 230 [place], [place] [phone] Appointment Request Social History Tobacco Use Types [...] encounter Miscellaneous Notes * Telephone Encounter - Yevgeniy Pink - 12/31/2024 11:56 AM EDT Tc from pt calling to reschedule apt 01/06/25. Pt is requesting a call back. Contact pt at [phone] documented in this encounter Plan of Treatment Upcoming Encounters Date Type Department Care Team (Late st Contact Info) Description 03/30/2025 1:30 PM EDT Office Visit [facility] MEDICINE [address] [place] [address] Mely Vasquez MD [address] [place] [address] 05/25/2025 11:00 AM EDT Office Visit [facility] MED[facility]INE [address] [place] [address] documented as of this encounter Visit Diagnoses Not on filedocumented in this encounter Additional Health Concerns Assessment Noted Time PHQ-9 Depression Total Score: 9 12/30/19 25 1:30 PM EDT documented as of this encounter Care Teams Clinic Business Manager Relationship Specialty Start Date End Date Mely Vasquez MD 230 [place] [address] PCP - General Family Medicine 05/11/21 documented as of this encounter
--- OUTSIDE RECORDS SUMMARY | 2025-03-23 15:10 | XMS_ITS | Encounter Summary ---
Author Organization [employer] Address 75 [facility] 7t [place] [address] Care Team Providers Care Network Administrator Name Role Phone Mely Vasquez MD Primary Care Provider [phone] Reason for Visit * Reason Onset Date Comments Med Refill 01/08/2025 Encounter Details Date Type Department Care Team ([facility] st Contact Info) Description 01/08/2025 Telephone [facility] MEDICINE 230 [place], [place] [phone] Mely Vasquez MD 230 [place], [place] [phone] Med Refill Social History Tobacco Use Types [...] * Telephone Encounter - Yevgeniy Pink - 01/08/2025 8:34 AM EDT TC from pt requesting medication refill. Medications needing refill : oxyCODONE (Roxicodone) 15 MG immediate release tablet To be sent to: [facility]/pharmacy #[id number] [place] [address] documented in this encounter Plan of Treatment Upcoming Encounters Date Type Department Care Team (Late st Contact Info) Description 03/30/2025 1:30 PM EDT Office Visit [facility] MEDICINE [address] [place] [address] Mely Vasquez MD [address] [place] [address] 05/25/2025 11:00 AM EDT Office Visit [facility] MEDICINE [address] [place] [address] documented as of this encounter Visit Diagnoses Not on filedocumented in this encounter Additional Health Concerns Assessment Noted Time PHQ-9 Depression Total Score: 9 12/30/19 25 1:30 PM EDT documented as of this encounter Care Teams Network Administrator Relationship Specialty Start Date End Date Mely Vasquez MD 230 [place] [address] PCP - General Family Medicine 05/11/21 documented as of this encounter
--- OUTSIDE RECORDS SUMMARY | 2025-03-23 15:10 | XMS_ITS | Clinical Summary ---
Author Organization [facility] ity Address [address] [place] [address] Care Team Providers Care Liquefied Petroleum Gasfitter Name Role Phone Unavailable Primary Care Provider [...]
--- OUTSIDE RECORDS SUMMARY | 2025-03-23 15:10 | XMS_ITS | Encounter Summary ---
Author Organization [employer] Address 75 [facility] 7t [place] [address] Care Team Providers Care Panel Installer Name Role Phone Mely Vasquez MD Primary Care Provider [phone] Reason for Visit * Reason Onset Date Comments Appointment Request 11/19/2024 Encounter Details Date Type Department Care Team ([facility] Contact Info) Description 11/19/2024 Telephone [facility] MED[facility]INE 230 [place], [place] [phone] Mely Vasquez MD 230 [place], [place] [phone] Appointment Request Social History Tobacco Use Types [...] AM EDT documented as of this encounter Functional Status * Over the past 2 weeks, how often have you been bothered by any of the following problems? Question Answer Date of Assessment Author Patient Health Questionnaire -2 Score 2 12/29/2024 1:30 PM EDT Char Carrasquillo [place] * Little interest or pleasure in doing things Answer Date of Assessment Author Several days 12/29/2024 1:30 PM EDT China Carrasquillo MA * Feeling down, depressed, or hopeless Answer Date of Assessment Author Several days 12/29/2024 1:30 PM EDT China Carrasquillo MA * Trouble falling or staying asleep, or sleeping too much Answer Date of Assessment Author Several days 12/29/2024 1:30 PM EDT China Carrasquillo MA * Feeling tired or having little energy Answer Date of Assessment Author Several days 12/29/2024 1:30 PM EDT China Carrasquillo MA * Poor appetite or overeating Answer Date of Assessment Author Several days 12/29/2024 1:30 PM EDT China Carrasquillo MA * Feeling bad about yourself - or that you are a failure or have let yourself or your family down Answer Date of Assessment Author Several days 12/29/2024 1:30 PM EDT China Carrasquillo MA * Trouble concentrating on things, such as reading the newspaper or watching television Answer Date of Assessment Author Several days 12/29/2024 1:30 PM EDT China Carrasquillo MA * Moving or speaking so slowly that other people could have noticed? Or the opposite - being so fidgety or restless that you have been moving around a lot more than usual. Answer Date of Assessment Author Several days 12/29/2024 1:30 PM EDT China Carrasquillo MA * Thoughts that you would be better off or hurting yourself in some way Answer Date of Assessment Author Several days 12/29/2024 1:30 PM EDT China Carrasquillo MA * Patient Health Questionnaire-9 Score Answer Date of Assessment Author 9 12/29/2024 1:30 PM EDT China Carrasquillo MA * How difficult have these problems made it for you to do your work, take care of things at home, or get along with other people? Answer Date of Assessment Author Somewhat difficult 12/29/2024 1:30 PM EDT China Chavis MA documented as of this encounter Miscellaneous Notes * Telephone Encounter - Caryl Sanchez - 11/19/2024 9:27 AM EDT Tc from pt canceling appointment of the 11/19/24 note RV DM / BP Contact pt at [phone] documented in this encounter Plan of Treatment Upcoming Encounters Date Type Department Care Team (Late st Contact Info) Description 03/30/2025 1:30 PM EDT Office Visit [facility] MED[facility]INE [address] [place] [address] Mely Vasquez MD 230 [place] [address] 05/25/2025 11:00 AM EDT Office Visit [facility] [address] [place] [address] documented as of this encounter Visit Diagnoses Not on filedocumented in this encounter Additional Health Concerns Assessment Noted Time PHQ-9 Depression Total Score: 0 02/27/20 23 3:09 PM EDT documented as of this encounter Care Teams Panel Installer Relationship Specialty Start Date End Date Mely Vasquez MD [address] [place] [address] PCP - General Family Medicine 05/11/21 documented as of this encounter
--- OUTSIDE RECORDS SUMMARY | 2025-03-23 15:10 | XMS_ITS | Encounter Summary ---
Author Organization [employer] Address 75 [facility] 7t [place] [address] Care Team Providers Care Pcat Instructor Name Role Phone Mely Vasquez MD Primary Care Provider Reason for Visit * Reason Onset Date Comments Med Refill 10/21/2024 Encounter Details Date Type Department Care Team ([facility] st Contact Info) Description 10/21/[address] [facility] MEDICINE 230 [place], [place] [phone] Mely Vasquez MD 230 [place], [place] [phone] Med Refill Social History Tobacco Use Types [...] To be sent to: [facility]/pharmacy #[id number] [place] [address] documented in this encounter Plan of Treatment Upcoming Encounters Date Type Department Care Team (Late st Contact Info) Description 03/30/2025 1:30 PM EDT Office Visit [facility] MEDICINE [address] [place] [address] Mely Vasquez MD [address] [place] [address] 05/25/2025 11:00 AM EDT Office Visit [facility] MEDICINE [address] [place] [address] documented as of this encounter Visit Diagnoses Not on filedocumented in this encounter Additional Health Concerns Assessment Noted Time PHQ-9 Depression Total Score: 0 02/27/20 23 3:09 PM EDT documented as of this encounter Care Teams Pcat Instructor Relationship Specialty Start Date End Date Mely Vasquez MD [address] [place] [address] PCP - General Family Medicine 05/11/21 documented as of this encounter
--- OUTSIDE RECORDS SUMMARY | 2025-03-23 15:10 | XMS_ITS | Encounter Summary ---
Author Organization [employer] Address 75 [facility] 7t [place] [address] Care Team Providers Care Sliver Former Name Role Phone Mely Vasquez MD Primary Care Provider [phone] Reason for Visit * Reason Onset Date Comments Med Refill 01/02/2024 Encounter Details Date Type Department Care Team ([facility] st Contact Info) Description 01/02/2024 Telephone [facility] MEDICINE 230 [place], [place] [phone] Mely Vasquez MD 230 [place], [place] [phone] Med Refill Social History Tobacco Use Types [...] immediate release tablet To be sent to: [facility]/PHARMACY #[id number] [place] [address] documented in this encounter Plan of Treatment Upcoming Encounters Date Type Department Care Team (Late st Contact Info) Description 03/30/2025 1:30 PM EDT Office Visit [facility] MEDICINE [address] [place] [address] Mely Vasquez MD [address] [place] [address] 05/25/2025 11:00 AM EDT Office Visit [facility] MED[facility]INE [address] [place] [address] documented as of this encounter Visit Diagnoses Not on filedocumented in this encounter Additional Health Concerns Assessment Noted Time PHQ-9 Depression Total Score: 0 02/27/20 23 3:09 PM EDT documented as of this encounter Care Teams Sliver Former Relationship Specialty Start Date End Date Mely Vasquez MD [address] [place] [address] PCP - General Family Medicine 05/11/21 documented as of this encounter
--- OUTSIDE RECORDS SUMMARY | 2025-03-23 15:10 | XMS_ITS | Encounter Summary ---
Author Organization [employer] Address 75 [facility] 7t [place] [address] Care Team Providers Care Sidewalk Repairer Name Role Phone Mely Vasquez MD Primary Care Provider [phone] Reason for Visit * Reason Onset Date Comments Med Refill 01/28/2024 Encounter Details Date Type Department Care Team ([facility] st Contact Info) Description 01/28/2024 Telephone [facility] MEDICINE 230 [place], [place] [phone] Mely Vasquez MD 230 [place], [place] [phone] Med Refill Social History Tobacco Use Types [...] immediate release tablet To be sent to: [facility]/pharmacy #[id number] [place] [address] documented in this encounter Plan of Treatment Upcoming Encounters Date Type Department Care Team (Late st Contact Info) Description 03/30/2025 1:30 PM EDT Office Visit [facility] MEDICINE [address] [place] [address] Mely Vasquez MD [address] [place] [address] 05/25/2025 11:00 AM EDT Office Visit [facility] MEDICINE [address] [place] [address] documented as of this encounter Visit Diagnoses Not on filedocumented in this encounter Additional Health Concerns Assessment Noted Time PHQ-9 Depression Total Score: 0 02/27/20 23 3:09 PM EDT documented as of this encounter Care Teams Sidewalk Repairer Relationship Specialty Start Date End Date Mely Vasquez MD [address] [place] [address] PCP - General Family Medicine 05/11/21 documented as of this encounter
--- OUTSIDE RECORDS SUMMARY | 2025-03-23 15:10 | XMS_ITS | Encounter Summary ---
Author Organization [employer] Address 75 [facility] 7t [place] [address] Care Team Providers Care Pharmacology Teacher Name Role Phone Mely Vasquez MD Primary Care Provider [phone] Reason for Visit * Reason Onset Date Comments Med Refill 01/11/2025 Encounter Details Date Type Department Care Team ([facility] st Contact Info) Description 01/11/2025 Telephone [facility] MEDICINE 230 [place], [place] [phone] Mely Vasquez MD 230 [place], [place] [phone] Med Refill Social History Tobacco Use Types [...] * Telephone Encounter - Kami Serrano - 01/11/2025 12:36 PM EDT Tc from pt needing new script for oxyCODONE (Roxicodone) 15 MG immediate release tablet insurance only covered one week supply. To be sent to: [facility]/pharmacy #[id number] documented in this encounter Plan of Treatment Upcoming Encounters Date Type Department Care Team (Late st Contact Info) Description 03/30/2025 1:30 PM EDT Office Visit [facility] MEDICINE [address] [place] [address] Mely Vasquez MD [address] [place] [address] 05/25/2025 11:00 AM EDT Office Visit [facility] [address] [place] [address] documented as of this encounter Visit Diagnoses Not on filedocumented in this encounter Additional Health Concerns Assessment Noted Time PHQ-9 Depression Total Score: 9 12/30/19 25 1:30 PM EDT documented as of this encounter Care Teams Pharmacology Teacher Relationship Specialty Start Date End Date Mely Vasquez MD 230 [place] [address] PCP - General Family Medicine 05/11/21 documented as of this encounter
--- OUTSIDE RECORDS SUMMARY | 2025-03-23 15:10 | XMS_ITS | Encounter Summary ---
Author Organization [employer] Address [address] [facility] 7t [place] [address] Care Team Providers Care Timber Hand Name Role Phone Mely Vasquez MD Primary Care Provider [phone] Reason for Visit * Reason Onset Date Comments Med Refill 03/20/2024 Encounter Details Date Type Department Care Team ([facility] st Contact Info) Description 03/20/2024 Telephone [facility] MEDICINE [address] [place], [place] [phone] Mely Vasquez MD [address] [place], [place] [phone] Med Refill Social History Tobacco Use Types [...] immediate release tablet To be sent to: [facility]/pharmacy #[address] [place] [address] documented in this encounter Plan of Treatment Upcoming Encounters Date Type Department Care Team (Late st Contact Info) Description 03/30/2025 1:30 PM EDT Office Visit [facility] MEDICINE [address] [place] [address] Mely Vasquez MD [address] [place] [address] 05/25/2025 11:00 AM EDT Office Visit [facility] [address] [place] [address] documented as of this encounter Visit Diagnoses Not on filedocumented in this encounter Additional Health Concerns Assessment Noted Time PHQ-9 Depression Total Score: 0 02/27/20 23 3:09 PM EDT documented as of this encounter Care Teams Timber Hand Relationship Specialty Start Date End Date Mely Vasquez MD [address] [place] [phone] PCP - General Family Medicine 05/11/21 documented as of this encounter
--- OUTSIDE RECORDS SUMMARY | 2025-03-23 15:10 | XMS_ITS | Encounter Summary ---
Author Organization [employer] Address [address] [facility] 7t [place] [address] Care Team Providers Care Brood Station Manager Name Role Phone Mely Vasquez MD Primary Care Provider [phone] Reason for Visit * Reason Onset Date Comments Med Refill 02/24/2024 Encounter Details Date Type Department Care Team ([facility] st Contact Info) Description 02/24/2024 Telephone [facility] MEDICINE 230 [place], [place] [phone] Mely Vasquez MD 230 [place], [place] [phone] Med Refill Social History Tobacco Use Types [...] immediate release tablet To be sent to: [facility]/pharmacy #[address] [place] [address] documented in this encounter Plan of Treatment Upcoming Encounters Date Type Department Care Team (Late st Contact Info) Description 03/30/2025 1:30 PM EDT Office Visit [facility] MEDICINE [address] [place] [address] Mely Vasquez MD [address] [place] [address] 05/25/2025 11:00 AM EDT Office Visit [facility] MEDICINE [address] [place] [address] documented as of this encounter Visit Diagnoses Not on filedocumented in this encounter Additional Health Concerns Assessment Noted Time PHQ-9 Depression Total Score: 0 02/27/20 23 3:09 PM EDT documented as of this encounter Care Teams Brood Station Manager Relationship Specialty Start Date End Date Mely Vasquez MD 230 [place] [address] PCP - General Family Medicine 05/11/21 documented as of this encounter
--- OUTSIDE RECORDS SUMMARY | 2025-03-23 15:10 | XMS_ITS | Encounter Summary ---
Author Organization [employer] Address [address] [facility] [address] 7t [place] [address] Care Team Providers Care Health Nurse Name Role Phone Mely Vasquez MD Primary Care Provider [phone] Reason for Visit * Reason Onset Date Comments ER Follow-up 12/10/2024 Nurse Triage 12/10/2024 Encounter Details Date Type Department Care Team ([facility] st Contact Info) Description 12/10/2024 Telephone [facility] MEDICINE 230 [place], [place] [phone] Mely Vasquez MD 230 [place], [place] [phone] ER Follow-up; Nurse Triage Social History Tobacco [...] ED visit on : Date: 12/03 Hospital: [facility] Seen for: Gastro-esophageal reflux disease, Constipation Symptomatic Yes *if yes message should go to Triage Patient advised will forward to team nurse for follow up Symptoms: Pain - Severe, Diarrhea Outcome: Talk to a nurse or provider within 15 minutes Reason: Blood in the diarrhea The caller accepted this outcome. [phone] documented in this encounter Plan of Treatment Upcoming Encounters Date Type Department Care Team (Late st Contact Info) Description 03/30/2025 1:30 PM EDT Office Visit [address] [address] Mely Vasquez MD [address] [place] [address] 05/25/2025 11:00 AM EDT Office Visit [address] [address] documented as of this encounter Visit Diagnoses Not on filedocumented in this encounter Additional Health Concerns Assessment Noted Time PHQ-9 Depression Total Score: 0 02/27/20 23 3:09 PM EDT documented as of this encounter Care Teams Health Nurse Relationship Specialty Start Date End Date Mely Vasquez MD [address] [place] [address] PCP - General Family Medicine 05/11/21 documented as of this encounter
--- OUTSIDE RECORDS SUMMARY | 2025-03-23 15:10 | XMS_ITS | Encounter Summary ---
Author Organization [employer] Address [address] [facility] [address] 7t [place] [address] Care Team Providers Care Rn Heart Name Role Phone Mely Vasquez MD Primary Care Provider [phone] Reason for Visit * Reason Onset Date Comments Durable Medical Equipment 03/23/2024 Encounter Details Date Type Department Care Team ([facility] st Contact Info) Description 03/23/2024 Telephone [facility] MEDICINE 230 [place], [place] [phone] Mely Vasquez MD 230 [place], [place] [phone] Durable Medical Equipment Social History Tobacco Use [...] Description 03/30/2025 1:30 PM EDT Office Visit [facility] MEDICINE [address] [place] [address] Mely Vasquez MD [address] [place] [address] 05/25/2025 11:00 AM EDT Office Visit [facility] MEDICINE [address] [place] [address] documented as of this encounter Visit Diagnoses Not on filedocumented in this encounter Additional Health Concerns Assessment Noted Time PHQ-9 Depression Total Score: 0 02/27/20 23 3:09 PM EDT documented as of this encounter Care Teams Rn Heart Relationship Specialty Start Date End Date Mely Vasquez MD [address] [place] [address] PCP - General Family Medicine 05/11/21 documented as of this encounter
--- OUTSIDE RECORDS SUMMARY | 2025-03-23 15:10 | XMS_ITS | Encounter Summary ---
Author Organization [employer] Address [address] [facility] 7t [place] [address] Care Team Providers Care Journeyman Machinist Name Role Phone Mely Vasquez MD Primary Care Provider [phone] Reason for Referral * Consultation (Routine) - Closed Specialty Diagnoses / Procedures Referred By Micheal mueller Referred To Contact Urology Diagnoses Benign prostatic hyperplasia, unspecified whether lower urinary tract symptoms present Mely Vasquez MD [address] [place] [phone] Phone: tel: fax: [facility] Referral ID Status Reason Start Date Expiration Date V isits Requested Visits Authorized [id number] Closed Specialty Services Required 11/22/2023 11/21/2024 1 1 Encounter Details Date Type Department Care Team (Late st Contact Info) Description 11/22/2023 Orders Only [facility] MEDICINE [address] [place] [address] [phone] Mely Vasquez MD [address] [place] [address] [phone] Benign prostatic hyperplasia, unspecified whether lower urinary [...] Description 03/30/2025 1:30 PM EDT Office Visit [facility] MEDICINE [address] [place] [address] Mely Vasquez MD [address] [place] [address] 05/25/2025 11:00 AM EDT Office Visit [facility] MEDICINE [address] [place] [address] [phone] Scheduled Referrals Name Type Priority Associated Diagnoses [...] Testosterone, Total 522 250 - 1100 ng/dL [facility] Comment:For additional infor mation, please refer [email or web address](This link is being provided for informational/educational purposes only.)This test was developed and its analytical performancecharacteristics have been determined by [facility] [place], [place]. It hasnot been cleared or approved by the U.S. Food and DrugAdministration. This assay has been validated pursuantto the CLIA regulations and is used for clinicalpurposes.THIS TEST WAS PERFORMED AT:[employer] [place] [address]GCCQQLZMARYSOL PANTOJA MD,PHD Blood Venous blood specimen / Unknown 12/02/2023 1:02 PM EDT 12/02/2023 4:10 PM EDT us Mely Vasquez MD LAB BLOOD ORDERABLES Final Resul t [facility] [address] [place] [phone] * PSA,Total (12/02/2023 1:02 PM EDT) Pathologist [facility] Prostate Specific Antigen 0.50 <0.05 - 4.0 ng/mL [facility] Comment:PSA methodology: Abb marielle Aliaj i ChemiluminescentMicroparticle Immunoassay (CMIA) Blood Venous blood specimen / Unknown 12/02/2023 1:02 PM EDT 12/02/2023 4:10 PM EDT us Mely Vasquez MD LAB BLOOD ORDERABLES Final Resul t [facility] [address] [place] [address] [phone] documented in this encounter Visit Diagnoses Diagnosis Benign prostatic hyperplasia, unspecified whether lower urinary tract symptoms present- Primary documented in this encounter Additional Health Concerns Assessment Noted Time PHQ-9 Depression Total Score: 0 02/27/20 23 3:09 PM EDT documented as of this encounter Care Teams Journeyman Machinist Relationship Specialty Start Date End Date Mely Vasquez MD [address] [place] [address] PCP - General Family Medicine 05/11/21 documented as of this encounter
--- OUTSIDE RECORDS SUMMARY | 2025-03-23 15:10 | XMS_ITS | Encounter Summary ---
Author Organization [employer] Address [address] [facility] [address] 7t [place] [address] Care Team Providers Care Federal Judge Name Role Phone Mely Vasquez MD Primary Care Provider [phone] Reason for Visit * Reason Comments Med Refill Encounter Details Date Type Department Care Team ([facility] st Contact Info) Description 04/26/2024 Refill [facility] MEDICINE 230 [place], [place] [phone] Mely Vasquez MD 230 [place], [place] [phone] Chronic rhinosinusitis; Chronic sinusitis, unspecified location Social [...] Description 03/30/2025 1:30 PM EDT Office Visit [facility] MEDICINE [address] [place] [address] Mely Vasquez MD [address] [place] [address] 05/25/2025 11:00 AM EDT Office Visit [facility] MEDICINE [address] [place] [address] documented as of this encounter Visit Diagnoses Diagnosis Chronic rhinosinusitis Unspecified sinusitis (chronic) Chronic sinusitis, unspecified location documented in this encounter Additional Health Concerns Assessment Noted Time PHQ-9 Depression Total Score: 0 02/27/20 23 3:09 PM EDT documented as of this encounter Care Teams Federal Judge Relationship Specialty Start Date End Date Mely Vasquez MD [address] [place] [address] PCP - General Family Medicine 05/11/21 documented as of this encounter
--- OUTSIDE RECORDS SUMMARY | 2025-03-23 15:11 | XMS_ITS | Encounter Summary ---
Author Organization [employer] Address [address] [facility] 7t [place] [address] Care Team Providers Care Dragline Operator Name Role Phone Mely Vasquez MD Primary Care Provider [phone] Reason for Visit * Reason Onset Date Comments Appointment Request 01/31/2023 Encounter Details Date Type Department Care Team (Late st Contact Info) Description 01/31/2023 Telephone [facility] MEDICINE [address] [place] [address] Mely Vasquez MD [address] [place] [address] Appointment Request Social History Tobacco Use Types [...] from pt requesting to r/s appt from [facility] on 02/04/2023 [place] to [place]. Please contact pt at [phone] documented in this encounter Plan of Treatment Upcoming Encounters Date Type Department Care Team (Late st Contact Info) Description 03/30/2025 1:30 PM EDT Office Visit [facility] MEDICINE [address] [place] [address] Mely Vasquez MD [address] [place] [address] 05/25/2025 11:00 AM EDT Office Visit [facility] [address] [place] [address] documented as of this encounter Visit Diagnoses Not on filedocumented in this encounter Care Teams Dragline Operator Relationship Specialty Start Date End [place] [address] PCP - General Family Medicine 05/11/21 documented as of this encounter
--- OUTSIDE RECORDS SUMMARY | 2025-03-23 15:11 | XMS_ITS | Clinical Summary ---
Author Organization [employer] Address [address] [facility] [address] [place] [address] Care Team Providers Care Maintenance Supervisor Mechanical Name Role Phone Mely Vasquez MD Primary Care Provider [phone] Allergies Active Allergy Reactions Criticality Noted Date Comments Amitriptyline High 10/09/2022 Other reaction(s): Confusion Ibuprofen Diarrhea High 08/08/2018 Influenza A (H1n1) Monovalent Vaccine High 10/05/2022 Other reaction(s): Weakness Other Reaction(s): Weakness Influenza Vaccines Diarrhea 07/31/2022 Morphine Diarrhea 08/08/2018 Varenicline Other 02/27/2023 Medications * This document contains information received from the source organization and may not represent a complete record from that organization. cholecalcifero l (Vitamin D-3) 50 MCG (1999) [...] mL into affected nostril(s). 05/17/20 21 Active traZODone (Desyrel) 50 MG tablet Take [...] 90 tablet 3 08/03/19 25 2025 Active famotidine (Pepcid) 40 MG tablet TOME 1 TABLETA POR V A ORAL TODOS LOS D AL ACOSTARSE 01/03/20 25 Active hydrocortisone (Anusol-HC) 2.5 % rectal cream 01/06/20 25 Active pantoprazole (ProtoNix) 40 MG EC tablet TOME 1 TABLETA POR V A ORAL DOS VECES AL D A 12/05/19 25 Active solifenacin (VESIcare) 5 MG tablet TOME YANIV TABLETA POR V A ORAL AL ACOSTARSE 12/17/19 25 Active sucralfate (Carafate) 1 g tablet TOME 1 TABLETA POR V A ORAL JASWINDER VECES AL D A 01/03/20 25 Active Testosterone 20.25 MG/ACT (1.62%) gel USE 2 PUMP TOPICALLY DAILY FOR 30 DAYS 10/02/19 25 Active oxyCODONE (Roxicodone) 15 MG immediate release tabletIndicati ons:Lumbar disc disease Take 1 tablet (15 mg) by mouth every 8 (eight) hours if needed (pain) for up to 28 days. Do not start before March 11, 2025. 84 tablet 03/11/20 25 2024 Active oxyCODONE (Roxicodone) 15 MG immediate release tabletIndicati ons:Lumbar disc disease Take 1 tablet (15 mg) by mouth every 8 (eight) hours if needed (pain) for up to 28 days. Do not start before February 12, 2025. 84 tablet 02/13/20 25 2024 Discontinued(R eorder (will not trigger notification to Pharmacy)) Active Problems Problem Noted Date Diagnosed Date At risk for nutrition deficiency 01/11/2025 Assessment & Plan (01/11/2025 6:30 AM EDT): - Patient is not having abdominal pain, chronic, worsened since November 2024 and was seen in the ED. Diagnosed with colitis. Patient has not tried several courses of antibiotics. Symptoms have not improved. - Patient is followed by GI closely. Upcoming appointment. Continue current medications prescribed by GI. - Will prescribe nutritional supplement since he is unable to meet his nutritional requirement by regular meals due to abdominal pain/poor appetite and p.o. intake. Epigastric pain 12/29/2024 Assessment & Plan (12/29/2024 2:24 PM EDT): - Epigastric and left upper quadrant. Pt will follow up with GI - Pt has tried Augmentin, metronidazole, and Levaquin and is currently taking doxycycline - Continue pantoprazole - Pt has follow up appointment with GI and possible scheduling for colonoscopy. Chronic pain of right knee 11/19/2024 Long-term current use of opiate analgesic 2024 Overview (02/16/2025): Medication: Oxycodone 15mg Q8H PRN Indication: lumbar radiculopathy, lumbar disc disease, postlaminectomy syndrome of lumbar region Last SNACK STEWARD Agreement: 02/16/25 Tier: 2.5 (Cardroom Manager Q3-4 mo) - eval by PCP December 2024 Assessment & Plan (02/16/2025 2:16 PM EDT): Timeline: - 02/16/25: Initial group visit, utox/pill count as expected Inguinal hernia 04/10/2024 Assessment & Plan (08/09/2024 [...] (benign prostatic hyperplasia) 12/24/2023 Assessment & Plan (12/29/2024 1:12 PM EDT): - seen by urologist, [facility] - patient states he was prescribed tamsulosin for a short-term only. Will check the treatment plan - tamsulosin will help his BP as well Assessment & Plan (08/03/2024 3:19 PM EST): - seen by urologist, [facility] - patient states he was prescribed tamsulosin for a short-term only. Will check the treatment plan - tamsulosin will help his BP as well Assessment & Plan (04/10/2024 6:39 AM EDT): - seen by urologist, [facility] - patient states he was prescribed tamsulosin [...] enucleation - evaluated by ocular specialist and vehicle technician - treatment will not be covered by [...] tubular adenoma Constipation 08/25/2023 Assessment & Plan (12/29/2024 1:12 PM EDT): - in a setting of chronic oxycodone use - continue senna - fiber-rich diet Assessment & Plan (08/03/2024 3:18 PM EST): [...] ENT - consider evaluation by allergy / medicaid billing specialist for allergy test / immunotherapy. Assessment & Plan (12/27/2022 12:16 PM EDT): - continue montelukast - restart cetirizine - consider wellness specialist for allergy testing / immunotherapy Chronic [...] smoking cessation Hypertension 12/18/2022 Assessment & Plan (12/29/2024 1:12 PM EDT): - Goal BP <140/90 per [...] to 80 mg daily Assessment & Plan (08/09/2024 10:41 AM EST): [...] Assessment & Plan (02/27/2023 6:34 AM EDT): -[facility] provider: [facility] -Psychiatrist: Dr. Chavarria -Clinician: [...] higher dose - continue following with current [facility] provider Assessment & Plan (12/18/2022 2:48 PM EDT): -[facility] provider: [facility] -Psychiatrist: Dr. Chavarria -Clinician: Previously Elyssa Serrano, but pt does not have one currently -Evaluated by Nicko from [facility] -Pt has an upcoming [...] daily. Chronic GERD 12/18/2022 Assessment & Plan (12/29/2024 1:12 PM EDT): - Followed by [facility] GI, last seen in May 2024, upcoming follow up appointment in Jul 2024 - EGD in Feb 2024, small hiatal hernia and minimal gastritis - Continue Omeprazole 20mg BID - work on smoking cessation - avoid NSAIDs - H. Pylori test was negative in October 2023 Assessment & Plan (08/09/2024 10:38 AM EST): - Followed by [facility], last seen in May 2024, upcoming follow up appointment in Jul 2024 - EGD in Feb 2024, small hiatal hernia and minimal gastritis - Continue Omeprazole 20mg BID - work on smoking cessation - avoid NSAIDs - H. Pylori test was negative in October 2023 Assessment & Plan (04/07/2024 2:23 PM EDT): - Followed by [facility], last seen in November 2023 - Continue Omeprazole 20mg BID - work on smoking cessation - avoid NSAIDs - H. Pylori test was negative in October 2023 Assessment & Plan (12/24/2023 4:41 PM EDT): - Followed by [facility], last seen in November 2023 - Continue Omeprazole 20mg BID - work on smoking cessation - avoid NSAIDs - H. Pylori test was negative in October 2023 Assessment & Plan (08/25/2023 4:45 PM EST): - Followed by [facility] JOLLY, last seen in Jun 2023 - Continue Omeprazole 20mg BID - work on smoking cessation - avoid NSAIDs Assessment & Plan (12/18/2022 2:52 PM EDT): Seen by JOLLY, NOVEMBER 2022 -Rx Omeprazole 20mg BID -cont current tx plan -work on smoking cessation -avoid NSAIDs Blurry vision, right eye 12/18/2022 Assessment & Plan (08/25/2023 4:55 PM EST): - seen by vehicle technician in Mar 2023 - dry eye - recommended appropriate room humidity, artificial tears, increase blinking, Flax seed oil, smoking cessation Assessment & Plan (02/27/2023 6:34 AM EDT): - urgent referral to Dr. Leon - advised to avoid irritation Chronic low back pain 11/05/2022 Assessment & Plan (12/29/2024 1:13 PM EDT): - Prescribed oxycodone Assessment & Plan (08/03/2024 3:19 PM EST): - Prescribed oxycodone Herpes simplex 11/05/2022 Assessment & Plan (08/09/2024 10:44 AM EST): - recurrent - continue suppressive therapy Assessment & Plan (12/27/2022 12:16 PM EDT): - recurrent - start suppressive therapy Lumbar disc disease 11/05/2022 Assessment & Plan (02/16/2025 2:14 PM EDT): -Good engagement and participation with Group Medical Visit model, today was first visit. -Encouraged multifactorial approach to pain control including pharm and non- pharm modalities -UTOX and Pill count as expected Assessment & Plan (08/25/2023 4:50 PM EST): - on chronic opioid treatment with oxycodone 15 mg q8 hours since 07/17/2017. - Nerve stimulator removed on 09/26/[address] Beasley ([facility]). It was placed 7-8 years ago in [place]. -MRI in Feb 2023 showed: 1. Stable [...] post-laminectomy syndrome. -Continue judicious use of oxycodone -SNACK STEWARD agreement is up to date - Follow up in 3-4 mo or sooner prn Assessment & Plan (02/27/2023 6:20 AM EDT): - on chronic opioid treatment with oxycodone 15 mg q8 hours since 07/17/2017. - Nerve stimulator removed on 09/26/[address] Beasley ([facility]). It was placed 7-8 years ago in [place]. - MRI on 03/01/21 showed: --Postoperative findings [...] of arachnoiditis. -Continue judicious use of oxycodone -SNACK STEWARD agreement is up to date - Follow up in 3 mo or sooner prn - recent exacerbation in pain; adding celecoxib for short-term Assessment & Plan (12/18/2022 2:40 PM EDT): -He's on chronic opioid of oxycodone 15 mg q8 hours since 07/17/2017. -Nerve stimulator removed on 09/26/[address] Beasley ([facility]). It was placed 7-8 years ago in [place]. -MRI scheduled and completed, 03/01/21. ~MRI findings [...] of arachnoiditis. -Continue judicious use of oxycodone -SNACK STEWARD agreement review is up to date Vitamin D deficiency 11/05/2022 Hypertriglyceridemia 12/11/2018 Nicotine dependence with current use 08/08/2018 Assessment & Plan (12/29/2024 1:13 PM EDT): -Failed on nicotine replacement treatment: He tried patches, gums, and Nicotrol nasal spray -Adverse reaction to varenicline 1mg . Pt developed stomach pain when it was increased from 0.5 to 1 mg. He does not want to restart at lower dose -Pt reports he smokes around 5 cigarettes a day -Continue working on smoking cessation Assessment & Plan (08/03/2024 3:28 PM EST): [...] smoking cessation Asthma 11/20/2016 Assessment & Plan (12/29/2024 1:13 PM EDT): -Last exacerbation in January 2022, Tx for acute bronchitis with azithromycin and prednisone, Flovent was added -Last PFT in Mar 2022. No obstructive or restrictive ventilatory defect. No bronchodilator response. Increased residual volume suggests air trapping. -Continue Flovent as maintenance for now -Continue albuterol prn -Consider ICS/LABA prn -Work on smoking cessation Assessment & Plan (08/25/2023 4:44 PM EST): [...] 4:39 PM EDT): - following with [facility], last seen on 12/18/23 - plan to evaluate with EGD and abdominal US - continue omeprazole and sucralfate Colon cancer screening 12/19/202308/09 Acute upper respiratory infection 12/13/2022 02/26/2023 Encounters * This document contains information received from the source organization and may not represent a complete record from that organization. Date Type Department Care Team Description 03/09/2025 Refill [facility] [address] [place] [id number] Liset Cage, APARNA Lumbar disc disease 03/09/2025 Telephone [facility] [place] [address] Mely Vasquez MD Med Refill 02/16/2025 11:00 AM EDT Office Visit [facility] [place] [address] Loree Mcclendon FNP Lumbar disc disease (Primary Dx); Long-term current use of opiate analgesic 02/16/2025 Travel 02/11/2025 Telephone [facility] [place] [address] Mely Vasquez MD alyssa recall 02/11/2025 Refill [facility] [place] [address] Mely Vasquez MD Lumbar disc disease 01/28/[address] [place] [address] Mely Vasquez MD Durable Medical Equipment 01/26/2025 Telephone [facility] [address] [place] [address] Liset Cage RN 01/26/2025 Travel 01/20/2025 Orders Only GENERIC EXTERNAL DATA DEPARTMENT Provider, Generic External Data 01/20/2025 Telephone [facility] [place] [id number] Mely Vasquez MD Medication Question 01/15/2025 Results Follow-Up [facility] [place] [address] Mely Vasquez MD TSH with Reflex to Free T4, Comprehensive Metabolic Panel, Lipid Panel with Reflex to Direct LDL, Vitamin D, 25-Hydroxy, Total, Immunoassay 01/11/2025 Telephone [facility] [address] [place] [phone] Mely Vasquez MD Durable Medical Equipment 01/11/2025 Refill [facility] [address] [place] [address] Liset Cage, RN Lumbar disc disease 01/11/[address] [address] Mely Vasquez MD Med Refill 01/08/2025 Refill [facility] [address] [place] [address] Liset Cage, RN Lumbar disc disease 01/08/[address] [address] Mely Vasquez MD Med Refill 01/01/2025 Orders Only GENERIC EXTERNAL DATA DEPARTMENT Provider, Generic External Data 01/01/2025 Telephone [facility] [address] [place] [address] Liset Cage, APARNA 12/31/2024 Telephone [facility] [address] [place] [address] Liset Cage, APARNA 12/31/2024 Travel 12/31/2024 Telephone [facility] [address] [place] [address] Liset Cage, APARNA SNACK STEWARD 12/31/[address] [address] Mely Vasquez MD Appointment Request 12/29/2024 1:15 PM EDT Office Visit [address] [address] Mely Vasquez MD Hypertension, unspecified type (Primary Dx); Constipation, unspecified constipation type; Chronic GERD; Benign prostatic hyperplasia, unspecified whether lower urinary tract symptoms present; Depression with anxiety; Chronic low back pain, unspecified back pain laterality, unspecified whether sciatica present; Moderate persistent asthma without complication; Nicotine dependence with current use; Weight loss; Vitamin D deficiency; Hypertriglyceridemia; Epigastric pain; At risk for nutrition deficiency 12/29/2024 Telephone [facility] [address] [place], [place] [phone] Mely Vasquez MD Durable Medical Equipment 12/29/2024 Travel from Last 3 Months Immunizations Immunization Administration [...] Sign Reading Time Taken Comments Blood Pressure 110/90 12/29/2024 2:02 PM EDT Pulse 80 12/29/2024 1:31 PM EDT Temperature 36 C (96.8 F) 12/29/2024 1:31 PM EDT Respiratory Rate 16 12/29/2024 1:31 PM EDT Oxygen Saturation 100% 09/09/2024 3:35 PM EST Inhaled Oxygen Concentration - - Weight 55.7 kg (122 lb 12.8 oz) 12/29/2024 1:31 PM EDT Height 157.5 cm (5' 2 ) 12/29/2024 1:31 PM EDT Body Mass Index 22.46 12/29/2024 1:31 PM EDT Plan of Treatment Upcoming Encounters Date Type Department Care Team (Late st Contact Info) Description 03/30/2025 1:30 PM EDT Office Visit [facility] [address] [place] [phone] Mely Vasquez MD [address] [place] [phone] 05/25/2025 11:00 AM EDT Office Visit [address] [address] Health Maintenance Due Date Last Done Comments CT Colonography 1975 Dental Oral Exam 1975 Dental Prophylaxis 1975 Dental X-Ray: Full Mouth 1975 FIT DNA/Cologuard 1975 FIT 1975 FOBT 1975 Sigmoidoscopy 1975 Disability Screening 1975 Family Planning (PISQ) 12/21/1990 Hepatitis C Screening 12/21/1993 COVID-19 Vaccine (2023- 5 season) 2024 06/12/2021, 12/10/2020, 11/12/2020 Hepatitis B Vaccines (2 of 3 - 19+ 3-dose series) 08/31/2024 08/03/2024 Dental X-Ray: Bitewings 09/14/2024 09/13/2023 Influenza Vaccine (#1) 2025 Depression Monitoring 06/30/2025 12/29/2024 , 12/29/2024 Alcohol/Substance Use Screening 08/03/2025 08/03/2024 Tobacco Screening 08/09/2025 08/09/2024 Zoster Vaccines (1 of 2) 12/21/2025 SDOH Screening 12/29/2025 12/29/2024 Colonoscopy 10/10/2027 10/09/2022 Colorectal Cancer Screening 10/10/2027 Lipid Panel 01/14/2030 01/14/2025, 08/27/2023, 04/27/2022 DTaP/Tdap/Td Vaccines (2 - T d or Tdap) 03/27/2032 03/27/2022 RSV Patients and Patients Aged 60 years or older (1 - 1-dose 75+ series) 12/21/2050 HIV Screening Completed 04/27/2022 Pneumococcal Vaccine: Pediatrics (0 to 5 Years) and At-Risk Patients (6 to 49) Years Completed 03/19/2023, 05/19/2018 HIB Vaccines Aged Out [...] Procedure Name Priority Date/Time Associated Diagnosis Comments POCT CHARLY-14 URINE DRUG SCREEN Routine 02/16/2025 11:10 AM EDT Lumbar disc disease PROMETHEUS IBD SGI Routine 01/20/2025 3: 28 PM EDT C-REACTIVE PROTEIN Routine 01/20/2025 3: 28 PM EDT VITAMIN D,25-OH,TOTAL,IA Routine 01/14/2025 1:55 PM EDT Vitamin D deficiency LIPID PANEL WITH REFLEX TO DIRECT LDL Routine 01/14/2025 1:55 PM EDT Hypertriglyceridemi a COMPREHENSIVE METABOLIC PANEL Routine 01/14/2025 1:55 PM EDT Hypertension, unspecified type TSH W/REFLEX TO FT4 Routine 01/14/2025 1 :55 PM EDT Hypertension, unspecified type URINALYSIS WITH REFLEX MICROSCOPIC Routine 01/01/2025 9:50 PM EDT BITEWING - SINGLE RADIOGRAPHIC IMAGE Routine 09/13/2023 1:00 PM EST HM COLONOSCOPY Routine 10/09/2022 ZZZ HISTORICAL HIV AB/AG Routine 04/27/2022 2:42 PM EDT from Last 3 Months or Most Recently Relevant to Health Maintenance Results * POCT CHARLY-14 Urine Drug Screen (02/16/2025 11:10 AM EDT) THC Negative Negative Cocaine Screen, Urine Negative Negative Opiate Screen, Urine Negative Negative Methamphetamine Screen Urine Negative Negative Amphetamine Screen, Urine Negative Negative Benzodiazepines Screen, Urine Negative Negative Barbiturate Screen, Urine Negative Negative Methadone Screen, Urine Negative Negative Buprenophine Screen, Urine Negative Negative TCA, Urine Negative Negative MDMA Urine Negative Negative ng/mL Oxycodone Screen, Urine Positive Negative Phencyclidine (PCP), Urine Negative Negative Propoxyphene, Urine Negative Negative Fentanyl, Urine Negative Negative Urine Urine specimen obtained by clean catch procedure / Unknown 02/16/2025 11:10 AM EDT Wilma Rice RN - 02/16/2025 11:10 AM EDT UTOX cup [id number] Exp. 05/04/26 Internal Pass Control Loree Mcclendon TEACHER [employer]UC[employer] POINT OF CARE TEST ENTER/EDIT ORDERABLES Final Result * [facility] (01/20/2025 3:28 PM EDT) [facility] SEE NOTE [facility] Comment:SEE SCANNED RESULTS IN EMR. 01/20/2025 3:28 PM EDT 01/20/2025 3:28 PM EDT Generic External Data Provider LAB BLOOD ORDERAB LES Final Result Performing Organization Address City/[facility]/ZIP Co de Phone Number [facility] [address] [place] [phone] * C-reactive Protein (01/20/2025 3:28 PM EDT) C Reactive Protein 0.22 < or = 0.50 mg/dL [facility] 01/20/2025 3:28 PM EDT 01/20/2025 3:28 PM EDT Generic External Data Provider LAB BLOOD ORDERAB LES Final Result Performing Organization Address City/[facility]/ZIP Co de Phone Number [facility] [address] [place] [phone] * Vitamin D, 25-Hydroxy, Total, Immunoassay (01/14/2025 1:55 PM EDT) Vitamin D 25-OH Total 41.8 >30 ng/mL [facility] Comment: Health Based Reference Values*< 20 ng/mL [id number] ng/mL Insufficient> 30 ng/mL Sufficient*Christopher BLANCHARD. N Engl J Med. 2007;357:266-280There is no well-established upper level of normal vitamin Dlevels. Some laboratories use 50 ng/mL as an upper limit ofnormal. However, toxicity is patient-dependent and may occurat any level. Careful correlation with the patient'spresentation is necessary and, if there is concern forvitamin D toxicity, treatment should be consideredirrespective of the serum level.Care must be taken in interpreting Vitamin D results fromdifferent laboratories and methodologies. Published datademonstrated that results from patients undergoinghemodialysis may show a negative bias when tested withvarious automated 25-OH vitamin D assays when compared toLC-MS/MS.When testing samples from patients whose predominant form ofVitamin D is Vitamin D2, such as patients receiving VitaminD2 supplementation, results that are subtherapeutic shouldbe confirmed with another method such as LC-MS/MS. Blood Venous blood specimen / Unknown 01/14/2025 1:55 PM EDT 01/14/2025 1:55 PM EDT Mely Vasquez MD LAB BLOOD ORDERABLES Final Resul t Performing Organization Address [facility]/ZIP Co de Phone Number [facility] [address] [place] [phone] * TSH with Reflex to Free T4 (01/14/2025 1:55 PM EDT) TSH reflex Free T4 0.71 0.32 - 4.0 uIU/mL [facility] Blood 01/14/2025 1:55 PM EDT 01/14/2025 1:55 PM EDT Mely Vasquez MD LAB BLOOD ORDERABLES Final Resul t Performing Organization Address [facility]/ZIP Co de Phone Number [facility] [address] [place] [phone] * (ABNORMAL) Lipid Panel with Reflex to Direct LDL (01/14/2025 1:55 PM EDT) Triglycerides 106 <150 mg/dL [facility] Comment:Desirable Triglyceri de: less than 150 mg/dLBorderline High Triglyceride 150-199 mg/dLHigh Triglyceride: 200-499 mg/dLVery High Triglyceride: greater than or equal to 5OO mg/dL Cholesterol 136 <200 mg/dL [facility] Comment:Desirable Cholestero l: less than 200 mg/dLBorderline High Cholesterol: 200-239 mg/dLHigh Cholesterol: greater than 239 mg/dL LDL Cholesterol Calculated 77 <100 mg/dL [facility] Comment:Desirable LDL: less than 100 mg/dLNear Optimal/Above Optimal LDL: 110- 129 mg/dLBorderline High LDL: 130-159 mg/dLHigh LDL: 160-189 mg/dLVery High LDL: greater than or equal to 190 mg/dL HDL Cholesterol 38(L) >40 mg/dL [facility] Comment:Desirable HDL: great er than 40 mg/dL Note: This HDL assay may give artificially low results in patients with liver disease. Blood 01/14/2025 1:55 PM EDT 01/14/2025 1:55 PM EDT us Mely Vasquez MD LAB BLOOD ORDERABLES Final Resul t [facility] [address] [place] [phone] * Comprehensive Metabolic Panel (01/14/2025 1:55 PM EDT) Sodium 142 135 - 145 mmol/L [facility] Potassium 4.0 3.3 - 5.1 mmol/L [facility] Chloride 108 96 - 108 mmol/L [facility] Carbon Dioxide 26 22 - 29 mmol/L [facility] Anion Gap 12 12 - 20 [facility] Urea Nitrogen (BUN) 11 9 - 16 mg/dL [facility] Creatinine, Serum 1.07 0.5 - 1.4 mg/dL [facility] Estimated Glomerular Filt Rate >60 [facility] Comment:Chronic Kidney Disea se: Estimated GFR < 60 mL/min/1.67w0Wdaxyd Kidney Disease: Estimated GFR < 15 mL/min/1.73m2 Glucose 108 60 - 115 mg/dL [facility] Calcium 9.1 8.4 - 10.2 mg/dL [facility] Bilirubin, Total 0.6 0.0 - 1.0 mg/dL [facility] Aspartate Amino Transferase 18 5 - 37 U/L [facility] Alanine Aminotransferase 17 0 - 40 U/L [facility] Total Protein 6.5 6.5 - 8.0 g/dL [facility] Albumin Level 4.4 3.5 - 5.0 g/dL [facility] Alkaline Phosphatase 53 39 - 117 U/L [facility] Blood Venous blood specimen / Unknown 01/14/2025 1:55 PM EDT 01/14/2025 1:55 PM EDT us Mely Vasquez MD LAB BLOOD ORDERABLES Final Resul t Performing Organization Address City/[facility]/ZIP Co de Phone Number [facility] [address] [place] [phone] * Urinalysis w/reflex microscopic (01/01/2025 9:50 PM EDT) Color Urine Yellow [facility] Appearance Urine Clear [facility] PH 5.5 5.0 - 9.0 [facility] Glucose Urine UA Negative Negative mg/dL [facility] Urine Blood Negative Negative [facility] Specific [place] - Urine 1.010 1.005 - 1.025 [facility] Urine Protein Negative Neg-Trace mg/dL [facility] Urine Ketones Trace Negative mg/dL [facility] Nitrite Urine Negative Negative [facility] Leukocyte Esterase Urine Negative Negative [facility] 01/01/2025 9:50 PM EDT 01/01/2025 10:00 PM EDT Narrative [facility] - 01/01/2025 10:09 PM EDT [id number], Clean Catch us Generic External Data Provider LAB URINE ORDERAB LES Final Result [facility] [address] [place] [address] [phone] * Colonoscopy (10/09/2022) Colonoscopy Normal Normal Historical Provider HEALTH MAINTENANCE Edited Result - Final * HIV AB/AG (04/27/2022 2:42 PM EDT) HIV AB/AG Nonreactive Nonreactive [facility] Comment: HIV-1 p24 Ag and/or HIV-1/HIV-2 Ab not detected. A test result that is nonreactive does not exclude the possibility of exposure to or infection with HIV-1 and/or HIV-2. Nonreactive results in this assay for individuals with prior exposure to HIV-1 and/or HIV-2 may be due to antigen and antibody levels that are below the limit of detection of this assay. The [employer] Account Supervisor HIV Ag/Ab Combo assay result and supplemental assay results should be interpreted in conjunction with the patient's clinical presentation, history and other laboratory results. If the results are inconsistent with clinical evidence, additional testing is suggested to confirm the result. Hepatitis B Surface Antibody NONREACTIVE Nonreactive [facility] Comment:Nonreactive: < 8.00 mIU/mL 04/27/2022 2:42 PM EDT Mely Vasquez MD HISTORICAL/NON ORDERABLE LABS Fi nal Result [facility] from Last 3 Months or Most Recently Relevant to Health Maintenance Insurance [facility]ARE < 65 [facility] STANDARD DENTAL-[facility] MEDICAID STAND ADULT DENTAL - [facility] PPO Care Teams Maintenance Supervisor Mechanical Relationship Specialty Start Date End Date Mely Vasquez MD [address] [place] [address] PCP - General Family Medicine 05/11/21
--- OUTSIDE RECORDS SUMMARY | 2025-03-23 15:11 | XMS_ITS | Encounter Summary ---
Author Organization [employer] Address [address] [facility] [address] 7t [place] [address] Care Team Providers Care Electrical Instrument Repairer Name Role Phone Mely Vasquez MD Primary Care Provider Reason for Visit * Reason Onset Date Comments Med Refill 05/21/2023 Encounter Details Date Type Department Care Team ([facility] st Contact Info) Description 05/21/2023 Telephone [facility] [address] [place], [place] [phone] Mely Vasquez MD 230 [place], [place] [phone] Med Refill Social History Tobacco Use Types [...] immediate release tablet, pt stated went to [facility] and the store has 40, pt is requesting order of 44 to be send [facility]. documented in this encounter Plan of Treatment Upcoming Encounters Date Type Department Care Team (Late st Contact Info) Description 03/30/2025 1:30 PM EDT Office Visit [facility] [address] [place] [address] Meyl Vasquez MD [address] [place] [address] 05/25/2025 11:00 AM EDT Office Visit [facility] [address] [place] [address] documented as of this encounter Visit Diagnoses Not on filedocumented in this encounter Additional Health Concerns Assessment Noted Time PHQ-9 Depression Total Score: 0 02/27/20 23 3:09 PM EDT documented as of this encounter Care Teams Electrical Instrument Repairer Relationship Specialty Start Date End Date Mely Vasquez MD [address] [place] [address] PCP - General Family Medicine 05/11/21 documented as of this encounter
--- OUTSIDE RECORDS SUMMARY | 2025-03-23 15:11 | XMS_ITS | Encounter Summary ---
Author Organization [employer] Address [address] [facility] [address] [facility] [address] 7t [place] [address] Care Team Providers Care Athletic Director Name Role Phone Mely Vasquez MD Primary Care Provider [phone] Reason for Visit * Reason Onset Date Comments FYI 05/15/2023 Encounter Details Date Type Department Care Team ([facility] Contact Info) Description 05/15/2023 Telephone [facility] [address] [place], [place] [phone] Mely Vasquez MD 230 [place], [place] [phone] FYI Social History Tobacco Use Types Packs/Day [...] pt got an appt for 05/24/2023 at [facility] for lumbar pain. documented in this encounter Plan of Treatment Upcoming Encounters Date Type Department Care Team (Late st Contact Info) Description 03/30/2025 1:30 PM EDT Office Visit [facility] [address] [place] [address] Mely Vasquez MD [address] [place] [address] 05/25/2025 11:00 AM EDT Office Visit [facility] [address] [place] [address] documented as of this encounter Visit Diagnoses Not on filedocumented in this encounter Additional Health Concerns Assessment Noted Time PHQ-9 Depression Total Score: 0 02/27/20 23 3:09 PM EDT documented as of this encounter Care Teams Athletic Director Relationship Specialty Start Date End Date Mely Vasquez MD [address] [place] [address] PCP - General Family Medicine 05/11/21 documented as of this encounter
--- OUTSIDE RECORDS SUMMARY | 2025-03-23 15:11 | XMS_ITS | Encounter Summary ---
Author Organization [employer] Address [address] [facility] 7t [place] [address] Care Team Providers Care Order Picker/Assembler Name Role Phone Mely Vasquez MD Primary Care Provider [phone] Reason for Visit * Reason Onset Date Comments Med Refill 04/22/2023 Encounter Details Date Type Department Care Team ([facility] st Contact Info) Description 04/22/2023 Telephone [facility] 230 [place] [address] Mely Vasquez MD 230 [place], [place] [phone] Med Refill Social History Tobacco Use Types [...] Description 03/30/2025 1:30 PM EDT Office Visit [facility] [address] [place] [address] Mely Vasquez MD [address] [place] [address] 05/25/2025 11:00 AM EDT Office Visit [facility] [address] [place] [address] documented as of this encounter Visit Diagnoses Not on filedocumented in this encounter Additional Health Concerns Assessment Noted Time PHQ-9 Depression Total Score: 0 02/27/20 23 3:09 PM EDT documented as of this encounter Care Teams Order Picker/Assembler Relationship Specialty Start Date End Date Mely Vasquez MD [address] [place] [address] PCP - General Family Medicine 05/11/21 documented as of this encounter
--- OUTSIDE RECORDS SUMMARY | 2025-03-23 15:11 | XMS_ITS | Encounter Summary ---
Author Organization [employer] Address [address] [facility] 7t [place] [address] Care Team Providers Care Drill Operator Pneumatic Name Role Phone Mely Vasquez MD Primary Care Provider Reason for Visit * Reason Onset Date Comments Med Refill 06/26/2023 Encounter Details Date Type Department Care Team ([facility] st Contact Info) Description 06/26/2023 Refill [facility] 230 [place], [place] [phone] Mely Vasquez MD 230 [place], [place] [phone] Lumbar disc disease Social History Tobacco Use [...] (Roxicodone) 15 MG immediate release tablet [id number] [place] [address] - [address] [place] [address] documented in this encounter Plan of Treatment Upcoming Encounters Date Type Department Care Team (Late st Contact Info) Description 03/30/2025 1:30 PM EDT Office Visit [facility] [address] [place] [address] Mely Vasquez MD [address] [place] [address] 05/25/2025 11:00 AM EDT Office Visit [facility] [address] [place] [address] documented as of this encounter Visit Diagnoses Diagnosis Lumbar disc disease Other and unspecified disc disorder of lumbar region documented in this encounter Additional Health Concerns Assessment Noted Time PHQ-9 Depression Total Score: 0 02/27/20 23 3:09 PM EDT documented as of this encounter Care Teams Drill Operator Pneumatic Relationship Specialty Start Date End Date Mely Vasquez MD [address] [place] [address] PCP - General Family Medicine 05/11/21 documented as of this encounter
[2025-03-23 16:10] LABS: PSA,Total (Free>4and<10) 0.48 ng/mL (0.00-4.00)
[2025-03-27 17:33] LABS: Testosterone, Free 97.0 pg/mL (35.0-155.0)
== END 2025-03-23 14:13 | disposition home or self-care (01) ==
LOC: HO.LAB 14:12
PROVIDERS: PCP Family Medicine; Visit Provider Urology
DX: R79.89 Other specified abnormal findings of blood chemistry (principal); Z12.5 Encounter for screening for malignant neoplasm of prostate
CPT/HCPCS: 36415; 84153; 84402; 84403

== ENCOUNTER → 2025-04-08 08:26 | Outpatient (REF) | payer OTHER, SELFPAY ==
--- NOTE | ~2025-04-08 | NM_ITS ---
EXAMINATION: ND RADIONUCLIDE SOLID FOOD GASTRIC EMPTYING 4-HOUR STUDY CLINICAL INFORMATION: R11.2 - Nausea with vomiting, unspecified COMPARISON: There are no prior studies available for comparison. TECHNIQUE: A standard meal consisting of 4 oz of Egg Beaters brand tagged with 0.92 mCi Tc-99m Sulfur Colloid, 4 oz water and 1 slice of toast with jelly was administered orally to the patient. Images were obtained using a dual head gamma camera in the anterior and posterior projections over of the stomach immediately post ingestion and at hourly intervals up to 4 hours post ingestion. The anterior and posterior counts at each time interval were averaged using the geometric mean and expressed as percentage of the immediate post ingestion counts. FINDINGS: There is visualization of activity in the stomach immediately post ingestion. As the study progresses, there is clearance of activity from the stomach and visualization of progressively increasing small bowel activity. By the end of the study, there is almost no retention noted in the stomach. Retention in the stomach at each time interval was: 1 hour 60% (normal 37%-90%) 2 hours 33% (normal 30%-60%) 3 hours 2% ND/ND gastric emptying study IMPRESSION: Normal 4-hour solid food gastric emptying study. For solid meal, rapid gastric emptying is less than 30% at 60 minutes. Delayed gastric emptying criteria is more than 60% remaining at 120 minutes or more than 10% at 240 minutes. The 4-hour value is the best discriminator of a normal or abnormal result). Gastric emptying study grading per JNMT Consensus Recommendations in 2008 (https://tech.snmjournals.org/content/36/1/44) Grade 1 (mild retention): 11-20% at 4h Grade 2 (moderate retention): 21-35% at 4h Grade 3 (severe retention): 36-50% at 4h Grade 4 (very severe retention): >50% retention at 4h Electronically signed by: Noe Martinez MD 04/08/2025 12:27 PM EDT
--- OUTSIDE RECORDS SUMMARY | 2025-04-08 09:25 | XMS_ITS | Clinical Summary ---
Author Organization [employer] [facility] ity Address [address] [place] [address] Care Team Providers Care Char Belt Operator Name Role Phone Unavailable Primary Care Provider [...] of 3 - 19+ 3-dose series) 12/21/1994 Depression Screening 07/29/2024 COVID-19 Vaccine (1 - 2023-2 5 season) 2025 Influenza Vaccine (#1) 2025 HIB Vaccines Aged [...]
== END ==
LOC: HO.NUCMED 08:26
PROVIDERS: PCP Family Medicine; Visit Provider Nurse Practitioner
DX: R11.2 Nausea with vomiting, unspecified (principal)
CPT/HCPCS: 78264; A9541

== ENCOUNTER → 2025-04-08 08:28 | Outpatient (BNV) | payer OTHER, SELFPAY | PROVIDERS: PCP Family Medicine; Visit Provider Radiology Diagnostic Radiology | DX: R11.2 Nausea with vomiting, unspecified (principal) | CPT/HCPCS: 78264 ==

== ENCOUNTER 2025-04-12 12:58 | Outpatient (REF) | payer OTHER, SELFPAY ==
--- NOTE | ~2025-04-12 | CT_ITS ---
EXAMINATION: CT ABDOMEN AND PELVIS WITH CONTRAST CLINICAL INFORMATION: Unspecified abdominal pain. R10.9 COMPARISON: December 02, 2024 TECHNIQUE: Multidetector volumetric images were obtained from the superior aspect of the liver through the pubic symphysis following administration 85 mL of Omnipaque 350 intravenous contrast. Sagittal and coronal reformatted images were obtained on the technologist's workstation. Oral contrast: Yes This CT examination was performed using dose optimization techniques as appropriate, variously including the following: *Automated exposure control *Adjustment of mA and/or kV according to patient size (this includes techniques or standardized protocols for targeted exams where dose is matched to indication/reason for exam; i.e. extremities or head) *Use of iterative reconstruction technique DLP: 214 mGy centimeter. FINDINGS: LUNG BASES: No acute airspace disease. LIVER, GALLBLADDER, AND BILIARY TREE: Liver measures 15 cm. There is a faint flash, 8 mm enhancing in the right hepatic lobe. There are multifocal, different sizes, round lobulated less than 7 mm low density likely fluid density lesions throughout the parenchyma. Main portal veins, hepatic veins and intrahepatic portion of the IVC are patent. Gallbladder is fluid-filled nondistended. No pericholecystic fluid collection or gallbladder wall thickening. No intrahepatic or extrahepatic biliary ductal dilatation. PANCREAS: No focal mass. No peripancreatic fluid collection. No main pancreatic ductal dilatation. SPLEEN: 7 cm. No focal lesion. ADRENAL GLANDS: No nodular lesion. KIDNEYS AND URETERS: No hydronephrosis. No renal mass. No gross nephrolithiasis. Normal enhancement pattern of the renal parenchyma. No dilatation of the uterus. BLADDER: Fluid-filled nearly collapsed. GASTROINTESTINAL TRACT: There is no intestinal obstruction pattern. There is mild intestinal wall thickening, rectosigmoid colon distal descending colon. No pneumatosis intestinalis. There is a segmental intestinal wall thickening distal ileal lobes. Appendix is normal. No ascites. No pneumoperitoneum. No peripheral enhancing fluid collections. ABDOMINAL WALL: There is a lobulated 2 cm fluid density in the left internal inguinal canal. No umbilical hernia. LYMPH NODES: No mesenteric or retroperitoneal lymphadenopathy. VASCULAR: Thin the abdominal aorta wall and iliac arteries. No aneurysm or dissection abdominal aorta. PELVIC VISCERA: Not enlarged. OSSEOUS STRUCTURES: Trans pedicle screws at L5-S1, bilaterally. Grade 1 anterolisthesis L5-S1. Facet joint hypertrophy at L4-5. Status post bilateral laminectomy, L5-S1. Small marginal osteophyte formation T11-T12. No acute fracture or dislocation in either hip. No acute fracture in the bony pelvis. CT/CT abdomen pelvis w IV con IMPRESSION: Concerning inflammatory bowel disease such as Crohn's disease versus less likely ulcerative colitis. No intestinal obstruction or gross enteroenteric fistula or peritoneal abscess. Probable flash hemangioma, right hepatic lobe. Small hepatic cysts. 2 cm fluid density internal left inguinal canal. Overall no gross change. Fleischner guidelines were followed. Electronically signed by: Piotr Gonzalez MD 04/12/2025 03:55 PM EDT
[2025-04-12] MEDS: iohexoL 350 MG/ML 100 ML INFUS..BTL IV (15:31)
--- OUTSIDE RECORDS SUMMARY | 2025-04-12 17:57 | XMS_ITS | Encounter Summary ---
Author Organization [employer] Address [address] [facility] 7 [place] [address] Care Team Providers Care Credit And Collections Representative Name Role Phone Mely Vasquez MD Primary Care Provider [phone] Reason for Visit * Reason Onset Date Comments ER Follow-up 12/10/2024 Nurse Triage 12/10/2024 Encounter Details Date Type Department Care Team ([facility] st Contact Info) Description 12/10/2024 Telephone [facility] 230 [place], [place] [phone] Mely Vasquez MD 230 [place], [place] [phone] ER Follow-up; Nurse Triage Social History Tobacco [...] ED visit on : Date: 12/03 Hospital: [facility] Seen for: Gastro-esophageal reflux disease, Constipation Symptomatic Yes *if yes message should go to Triage Patient advised will forward to team nurse for follow up Symptoms: Pain - Severe, Diarrhea Outcome: Talk to a nurse or provider within 15 minutes Reason: Blood in the diarrhea The caller accepted this outcome. [phone] documented in this encounter Plan of Treatment Upcoming Encounters Date Type Department Care Team (Late st Contact Info) Description 05/25/2025 11:00 AM EDT Office Visit [facility] [address] [place] [address] documented as of this encounter Visit Diagnoses Not on filedocumented in this encounter Additional Health Concerns Assessment Noted Time PHQ-9 Depression Total Score: 0 02/27/20 23 3:09 PM EDT documented as of this encounter Care Teams Credit And Collections Representative Relationship Specialty Start Date End Date Mely Vasquez MD [address] [place] [address] PCP - General Family Medicine 05/11/21 documented as of this encounter
--- OUTSIDE RECORDS SUMMARY | 2025-04-12 17:57 | XMS_ITS | Encounter Summary ---
Author Organization [employer] Address [address] [facility] 7t [place] [address] Care Team Providers Care Sandblaster Paint Sprayer Name Role Phone Mely Vasquez MD Primary Care Provider [phone] Reason for Visit * Reason Onset Date Comments Med Refill 01/02/2024 Encounter Details Date Type Department Care Team ([facility] Contact Info) Description 01/02/2024 Telephone [facility] [address] [place], [place] [phone] Mely Vasquez MD 230 [place], [place] [phone] Med Refill Social History Tobacco Use Types [...] immediate release tablet To be sent to: [facility] #[id number] [place] [address] - [address] [place] [address] documented in this encounter Plan of Treatment Upcoming Encounters Date Type Department Care Team (Late st Contact Info) Description 05/25/2025 11:00 AM EDT Office Visit [facility] [address] [place] [address] documented as of this encounter Visit Diagnoses Not on filedocumented in this encounter Additional Health Concerns Assessment Noted Time PHQ-9 Depression Total Score: 0 02/27/20 23 3:09 PM EDT documented as of this encounter Care Teams Sandblaster Paint Sprayer Relationship Specialty Start Date End Date Mely Vasquez MD [address] [place] [address] PCP - General Family Medicine 05/11/21 documented as of this encounter
--- OUTSIDE RECORDS SUMMARY | 2025-04-12 17:57 | XMS_ITS | Encounter Summary ---
Author Organization [employer] Address 75 [facility] 7t [place] [address] Care Team Providers Care Hob Mill Operator Name Role Phone Mely Vasquez MD Primary Care Provider [phone] Reason for Visit * Reason Onset Date Comments Med Refill 10/21/2024 Encounter Details Date Type Department Care Team ([facility] Contact Info) Description 10/21/2024 Telephone [facility] [address] [place], [place] [phone] Mely Vasquez MD 230 [place], [place] [phone] Med Refill Social History Tobacco Use Types [...] To be sent to: [facility]/pharmacy #[id number] [place] [address] - [address] [place] [address] documented in this encounter Plan of Treatment Upcoming Encounters Date Type Department Care Team (Late st Contact Info) Description 05/25/2025 11:00 AM EDT Office Visit [facility] [address] [place] [address] documented as of this encounter Visit Diagnoses Not on filedocumented in this encounter Additional Health Concerns Assessment Noted Time PHQ-9 Depression Total Score: 0 02/27/20 23 3:09 PM EDT documented as of this encounter Care Teams Hob Mill Operator Relationship Specialty Start Date End Date Mely Vasquez MD 230 [place] [address] PCP - General Family Medicine 05/11/21 documented as of this encounter
--- OUTSIDE RECORDS SUMMARY | 2025-04-12 17:57 | XMS_ITS | Encounter Summary ---
Author Organization [employer] Address [address] [facility] 7t [place] [address] Care Team Providers Care Risk Management Internship Name Role Phone Mely Vasquez MD Primary Care Provider [phone] Reason for Visit * Reason Onset Date Comments Durable Medical Equipment 03/23/2024 Encounter Details Date Type Department Care Team ([facility] Contact Info) Description 03/23/2024 Telephone [facility]INE 230 [place], [place] [phone] Mely Vasquez MD [address] [place], [place] [phone] Durable Medical Equipment Social History Tobacco Use [...] Description 05/25/2025 11:00 AM EDT Office Visit [facility] 230 [place] [address] documented as of this encounter Visit Diagnoses Not on filedocumented in this encounter Additional Health Concerns Assessment Noted Time PHQ-9 Depression Total Score: 0 02/27/20 23 3:09 PM EDT documented as of this encounter Care Teams Risk Management Internship Relationship Specialty Start Date End Date Mely Vasquez MD [address] [place] [address] PCP - General Family Medicine 05/11/21 documented as of this encounter
--- OUTSIDE RECORDS SUMMARY | 2025-04-12 17:57 | XMS_ITS | Clinical Summary ---
Author Organization [employer] [facility] ity Address [address] [place] [address] Care Team Providers Care Welder/Fitter Name Role Phone Unavailable Primary Care Provider [...]
--- OUTSIDE RECORDS SUMMARY | 2025-04-12 17:57 | XMS_ITS | Encounter Summary ---
Author Organization [employer] Address [address] [facility] 7t [place] [address] Care Team Providers Care Order Management Specialist Name Role Phone Mely Vasquez MD Primary Care Provider [phone] Reason for Visit * Reason Onset Date Comments Med Refill 02/24/2024 Encounter Details Date Type Department Care Team ([facility] Contact Info) Description 02/24/2024 Telephone [facility] 230 [place], [place] [phone] Mely Vasquez MD 230 [place], [place] [phone] Med Refill Social History Tobacco Use Types [...] release tablet To be sent to: [facility]/pharmacy #[id number] [place] [address] documented in this encounter Plan of Treatment Upcoming Encounters Date Type Department Care Team (Late st Contact Info) Description 05/25/2025 11:00 AM EDT Office Visit [facility] [address] [place] [address] documented as of this encounter Visit Diagnoses Not on filedocumented in this encounter Additional Health Concerns Assessment Noted Time PHQ-9 Depression Total Score: 0 02/27/20 23 3:09 PM EDT documented as of this encounter Care Teams Order Management Specialist Relationship Specialty Start Date End Date Mely Vasquez MD [address] [place] [address] PCP - General Family Medicine 10/14/21 documented as of this encounter
--- OUTSIDE RECORDS SUMMARY | 2025-04-12 17:57 | XMS_ITS | Encounter Summary ---
Author Organization [employer] Address [address] [facility] 7t [place] [address] Care Team Providers Care Quality Assurance Qa Lab Technician Name Role Phone Mely Vasquez MD Primary Care Provider [phone] Reason for Visit * Reason Onset Date Comments Med Refill 03/09/2025 Encounter Details Date Type Department Care Team ([facility] Contact Info) Description 03/09/2025 Telephone [facility] MEDICINE 230 [place], [place] [phone] Mely Vasquez MD 230 [place], [place] [phone] Med Refill Social History Tobacco Use Types [...] release tablet To be sent to: - [facility]/pharmacy #[id number] [place], [place] - [address] [place] [address] documented in this encounter Plan of Treatment Upcoming Encounters Date Type Department Care Team (Late st Contact Info) Description 05/25/2025 11:00 AM EDT Office Visit [facility] [address] [place] [address] documented as of this encounter Visit Diagnoses Not on filedocumented in this encounter Additional Health Concerns Assessment Noted Time PHQ-9 Depression Total Score: 9 12/30/19 25 1:30 PM EDT documented as of this encounter Care Teams Quality Assurance Qa Lab Technician Relationship Specialty Start Date End Date Mely Vasquez MD [address] [place] [address] PCP - General Family Medicine 05/11/21 documented as of this encounter
--- OUTSIDE RECORDS SUMMARY | 2025-04-12 17:57 | XMS_ITS | Encounter Summary ---
Author Organization [employer] Address 75 [facility] 7t [place] [address] Care Team Providers Care Optic Fibre Drawer Name Role Phone Mely Vasquez MD Primary Care Provider [phone] Reason for Visit * Reason Onset Date Comments Med Refill 01/01/2024 Encounter Details Date Type Department Care Team ([facility] Contact Info) Description 01/01/2024 Telephone [facility] 230 [place], [place] [phone] Mely Vasquez MD 230 [place], [place] [phone] Med Refill Social History Tobacco Use Types [...] immediate release tablet To be sent to: [facility]/pharmacy #[id number] [place] [address] - [address] [place] [address] documented in this encounter Plan of Treatment Upcoming Encounters Date Type Department Care Team (Late st Contact Info) Description 05/25/2025 11:00 AM EDT Office Visit [facility] [address] [place] [address] documented as of this encounter Visit Diagnoses Not on filedocumented in this encounter Additional Health Concerns Assessment Noted Time PHQ-9 Depression Total Score: 0 02/27/20 23 3:09 PM EDT documented as of this encounter Care Teams Optic Fibre Drawer Relationship Specialty Start Date End Date Mely Vasquez MD 230 [place] [address] PCP - General Family Medicine 05/11/21 documented as of this encounter
--- OUTSIDE RECORDS SUMMARY | 2025-04-12 17:57 | XMS_ITS | Encounter Summary ---
Author Organization [employer] Address [address] [place] [address] 7 [place] [address] Care Team Providers Care Distribution Systems Superintendent Name Role Phone Mely Vasquez MD Primary Care Provider [phone] Reason for Referral * Consultation (Routine) - Closed Specialty Diagnoses / Procedures Referred By Contac t Referred To Contact Urology Diagnoses Benign prostatic hyperplasia, unspecified whether lower urinary tract symptoms present Mely Vasquez MD [address] [place] [address] Phone: tel: fax: [facility] Referral ID Status Reason Start Date Expiration Date V isits Requested Visits Authorized [id number] Closed Specialty Services Required 11/22/2023 11/21/2024 1 1 Encounter Details Date Type Department Care Team (Late st Contact Info) Description 11/22/2023 Orders Only [facility] [address] [place] [address] [phone] Mely Vasquez MD [address] [place] [address] [phone] Benign prostatic hyperplasia, unspecified whether lower urinary [...] 05/25/2025 11:00 AM EDT Office Visit [facility] [address] [place] [phone] Scheduled Referrals Name Type Priority Associated Diagnoses [...] Testosterone, Total 522 250 - 1100 ng/dL [facility] Comment:For additional infor shanon, please refer tohttp://education.[employer]/faq/PlcymNyriblydewvdRUKKRVETK357(This link is being provided for informational/educational purposes only.)This test was developed and its analytical performancecharacteristics have been determined by [employer] [place], [place]. It hasnot been cleared or approved by the U.S. Food and DrugAdministration. This assay has been validated pursuantto the CLIA regulations and is used for clinicalpurposes.THIS TEST WAS PERFORMED AT:[employer] [place] [address]VJTXWWKMARYSOL PANTOJA MD,PHD Blood Venous blood specimen / Unknown 12/02/2023 1:02 PM EDT 12/02/2023 4:10 PM EDT Mely Vasquez MD LAB BLOOD ORDERABLES Final Resul t Performing Organization Address City/[facility]/ZIP Co de Phone Number [facility] [address] [place] [address] [phone] * PSA,Total (12/02/2023 1:02 PM EDT) Prostate Specific Antigen 0.50 <0.05 - 4.0 ng/mL [facility] Comment:PSA methodology: Abb marielle Aliaj i ChemiluminescentMicroparticle Immunoassay (CMIA) Blood Venous blood specimen / Unknown 12/02/2023 1:02 PM EDT 12/02/2023 4:10 PM EDT Mely Vasquez MD LAB BLOOD ORDERABLES Final Resul t [facility] [address] [place] [address] [phone] documented in this encounter Visit Diagnoses Diagnosis Benign prostatic hyperplasia, unspecified whether lower urinary tract symptoms present- Primary documented in this encounter Additional Health Concerns Assessment Noted Time PHQ-9 Depression Total Score: 0 02/27/20 23 3:09 PM EDT documented as of this encounter Care Teams Distribution Systems Superintendent Relationship Specialty Start Date End Date Mely Vasquez MD [address] [place] [address] PCP - General Family Medicine 05/11/21 documented as of this encounter
--- OUTSIDE RECORDS SUMMARY | 2025-04-12 17:57 | XMS_ITS | Encounter Summary ---
Author Organization [employer] Address [address] [facility] 7t [place] [address] Care Team Providers Care Professor Of Industrial Technology Name Role Phone Mely Vasquez MD Primary Care Provider [phone] Reason for Visit * Reason Onset Date Comments Med Refill 01/28/2024 Encounter Details Date Type Department Care Team ([facility] Contact Info) Description 01/28/2024 Telephone [facility]INE [address] [place], [place] [phone] Mely Vasquez MD [address] [place], [place] [phone] Med Refill Social History Tobacco Use Types [...] Miscellaneous Notes * Telephone Encounter - Justin Mnaley - 01/28/2024 9:11 AM EDT TC from pt requesting medication refill. Medications needing refill : oxyCODONE (Roxicodone) 15 MG immediate release tablet To be sent to: [facility]/pharmacy #[id number] [place] [address] - [address] [place] [address] documented in this encounter Plan of Treatment Upcoming Encounters Date Type Department Care Team (Late st Contact Info) Description 05/25/2025 11:00 AM EDT Office Visit [facility] [address] [place] [address] documented as of this encounter Visit Diagnoses Not on filedocumented in this encounter Additional Health Concerns Assessment Noted Time PHQ-9 Depression Total Score: 0 02/27/20 23 3:09 PM EDT documented as of this encounter Care Teams Professor Of Industrial Technology Relationship Specialty Start Date End Date Mely Vasquez MD [address] [place] [address] PCP - General Family Medicine 05/11/21 documented as of this encounter
--- OUTSIDE RECORDS SUMMARY | 2025-04-12 17:57 | XMS_ITS | Encounter Summary ---
Author Organization [employer] Address [address] [facility] 7t [place] [address] Care Team Providers Care Nurse Transplant Name Role Phone Mely Vasquez MD Primary Care Provider [phone] Reason for Visit * Reason Onset Date Comments Med Refill 03/20/2024 Encounter Details Date Type Department Care Team ([facility] Contact Info) Description 03/20/2024 Telephone [facility]INE [address] [place], [place] [phone] Mely Vasquez MD [address] [place], [place] [phone] Med Refill Social History Tobacco Use Types [...] be sent to: [facility]/pharmacy #[id number] [place] [address] - [address] [place] [address] documented in this encounter Plan of Treatment Upcoming Encounters Date Type Department Care Team (Late st Contact Info) Description 05/25/2025 11:00 AM EDT Office Visit [facility] [address] [place] [address] documented as of this encounter Visit Diagnoses Not on filedocumented in this encounter Additional Health Concerns Assessment Noted Time PHQ-9 Depression Total Score: 0 02/27/20 23 3:09 PM EDT documented as of this encounter Care Teams Nurse Transplant Relationship Specialty Start Date End Date Mely Vasquez MD [address] [place] [address] PCP - General Family Medicine 05/11/21 documented as of this encounter
--- OUTSIDE RECORDS SUMMARY | 2025-04-12 17:57 | XMS_ITS | Encounter Summary ---
Author Organization [employer] Address [address] [facility] 7t [place] [address] Care Team Providers Care Social Media Assistant Name Role Phone Mely Vasquez MD Primary Care Provider [phone] Reason for Visit * Reason Onset Date Comments Reschedule 12/04/2023 Encounter Details Date Type Department Care Team ([facility] Contact Info) Description 12/04/2023 Telephone [facility] MED[facility]INE [address] [place], [place] [phone] Mely Vasquez MD [address] [place], [place] [phone] Reschedule Social History Tobacco Use Types Packs/Day [...] AM EDT Tc from 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 documented in this encounter Plan of Treatment Upcoming Encounters Date Type Department Care Team (Late st Contact Info) Description 05/25/2025 11:00 AM EDT Office Visit [facility] [address] [place] [address] documented as of this encounter Visit Diagnoses Not on filedocumented in this encounter Additional Health Concerns Assessment Noted Time PHQ-9 Depression Total Score: 0 02/27/20 23 3:09 PM EDT documented as of this encounter Care Teams Social Media Assistant Relationship Specialty Start Date End Date Mely Vasquez MD [address] [place] [address] PCP - General Family Medicine 05/11/21 documented as of this encounter
--- OUTSIDE RECORDS SUMMARY | 2025-04-12 17:57 | XMS_ITS | Encounter Summary ---
Author Organization [employer] Address [address] [facility] 7t [place] [address] Care Team Providers Care Energy Efficiency Engineer Name Role Phone Mely Vasquez MD Primary Care Provider [phone] Reason for Visit * Reason Onset Date Comments Med Refill 01/11/2025 Encounter Details Date Type Department Care Team ([facility] Contact Info) Description 01/11/2025 Telephone [facility]INE [address] [place], [place] [phone] Mely Vasquez MD [address] [place], [place] [phone] Med Refill Social History Tobacco Use Types [...] one week supply. To be sent to: [facility]/pharmacy #[id number] [place], [place] - [address] [place] [address] documented in this encounter Plan of Treatment Upcoming Encounters Date Type Department Care Team (Late st Contact Info) Description 05/25/2025 11:00 AM EDT Office Visit [facility] [address] [place] [address] documented as of this encounter Visit Diagnoses Not on filedocumented in this encounter Additional Health Concerns Assessment Noted Time PHQ-9 Depression Total Score: 9 12/30/19 25 1:30 PM EDT documented as of this encounter Care Teams Energy Efficiency Engineer Relationship Specialty Start Date End Date Mely Vasquez MD [address] [place] [address] PCP - General Family Medicine 05/11/21 documented as of this encounter
--- OUTSIDE RECORDS SUMMARY | 2025-04-12 17:58 | XMS_ITS | Encounter Summary ---
Author Organization [employer] Address [address] [facility] 7t [place] [address] Care Team Providers Care Inspector Semiconductor Wafer Name Role Phone Mely Vasquez MD Primary Care Provider [phone] Reason for Visit * Reason Onset Date Comments Med Refill 12/10/2024 Encounter Details Date Type Department Care Team ([facility] Contact Info) Description 12/10/2024 Telephone [facility] [address] [place], [place] [phone] Mely Vasquez MD 230 [place], [place] [phone] Med Refill Social History Tobacco Use Types [...] immediate release tablet To be sent to: [facility]/pharmacy #[address] [place] [address] * Telephone Encounter - Kami Serrano - 12/10/2024 8:41 AM EDT TC from pt requesting medication refill. Medications needing refill : oxyCODONE (Roxicodone) 15 MG immediate release tablet To be sent to: [facility]/pharmacy #[address] [place] [address] too soon for refill. Pt was advised. documented in this encounter Plan of Treatment Upcoming Encounters Date Type Department Care Team ([facility] st Contact Info) Description 05/25/2025 11:00 AM EDT Office Visit [facility] [address] [place] [address] documented as of this encounter Visit Diagnoses Not on filedocumented in this encounter Additional Health Concerns Assessment Noted Time PHQ-9 Depression Total Score: 0 02/27/20 23 3:09 PM EDT documented as of this encounter Care Teams Inspector Semiconductor Wafer Relationship Specialty Start Date End Date Mely Vasquez MD [address] [place] [address] PCP - General Family Medicine 05/11/21 documented as of this encounter
--- OUTSIDE RECORDS SUMMARY | 2025-04-12 17:58 | XMS_ITS | Encounter Summary ---
Author Organization [email or web address] Address [address] [facility] 7t [place] [address] Care Team Providers Care Desk Top Publisher Name Role Phone Mely Vasquez MD Primary Care Provider [phone] Reason for Visit * Reason Comments Med Refill Encounter Details Date Type Department Care Team ([facility] st Contact Info) Description 04/26/2024 Refill [facility] MED[facility]INE [address] [place], [place] [phone] Mely Vasquez MD [address] [place], [place] [phone] Chronic rhinosinusitis; Chronic sinusitis, unspecified location Social [...] Description 05/25/2025 11:00 AM EDT Office Visit [facility] [address] [place] [address] documented as of this encounter Visit Diagnoses Diagnosis Chronic rhinosinusitis Unspecified sinusitis (chronic) Chronic sinusitis, unspecified location documented in this encounter Additional Health Concerns Assessment Noted Time PHQ-9 Depression Total Score: 0 02/27/20 23 3:09 PM EDT documented as of this encounter Care Teams Desk Top Publisher Relationship Specialty Start Date End Date Mely Vasquez MD [address] [place] [address] PCP - General Family Medicine 05/11/21 documented as of this encounter
--- OUTSIDE RECORDS SUMMARY | 2025-04-12 17:58 | XMS_ITS | Encounter Summary ---
Author Organization [facility] [employer] Address [address] [facility] 7t [place] [address] Care Team Providers Care Bottle Sorter Name Role Phone Mely Vasquez MD Primary Care Provider [phone] Reason for Visit * Reason Onset Date Comments Med Refill 04/05/2025 Encounter Details Date Type Department Care Team ([facility] Contact Info) Description 04/05/2025 Telephone [facility] MEDICINE 230 [place], [place] [phone] Mely Vasquez MD 230 [place], [place] [phone] Med Refill Social History Tobacco Use Types [...] * Telephone Encounter - Hugo Meraz - 04/05/2025 8:42 AM EDT Tc from pt calling back requesting to schedule OPTICAL INSTRUMENT REPAIRER visit as well as to discuss Pain Management group. Please contact pt at [phone]. (Divehi Speaker) * Telephone Encounter - David Alan - 04/05/2025 8:19 AM EDT TC from pt requesting medication refill. Medications needing refill : oxyCODONE (Roxicodone) 15 MG immediate release tablet To be sent to: [facility]/pharmacy #[address] [place] [address] - [address] [place] [address] documented in this encounter Plan of Treatment Upcoming Encounters Date Type Department Care Team ([facility] st Contact Info) Description 05/25/2025 11:00 AM EDT Office Visit [facility] MEDICINE [address] [place] [address] documented as of this encounter Visit Diagnoses Not on filedocumented in this encounter Additional Health Concerns Assessment Noted Time PHQ-9 Depression Total Score: 9 12/30/19 25 1:30 PM EDT documented as of this encounter Care Teams Bottle Sorter Relationship Specialty Start Date End Date Mely Vasquez MD [address] [place] [address] PCP - General Family Medicine 05/11/21 documented as of this encounter
--- OUTSIDE RECORDS SUMMARY | 2025-04-12 17:58 | XMS_ITS | Encounter Summary ---
Author Organization [employer] Address [address] [facility] 7t [place] [address] Care Team Providers Care Electro Optical Engineer Name Role Phone Mely Vasquez MD Primary Care Provider [phone] Reason for Visit * Reason Onset Date Comments Med Refill 05/21/2023 Encounter Details Date Type Department Care Team ([facility] Contact Info) Description 05/21/2023 Telephone [facility] MEDICINE [address] [place], [place] [phone] Mely Vasquez MD [address] [place], [place] [phone] Med Refill Social History Tobacco Use Types [...] immediate release tablet, pt stated went to [facility] and the store has 40, pt is requesting order of 44 to be send [facility]. documented in this encounter Plan of Treatment Upcoming Encounters Date Type Department Care Team (Late st Contact Info) Description 05/25/2025 11:00 AM EDT Office Visit [facility] MED[facility]INE [address] [place] [address] documented as of this encounter Visit Diagnoses Not on filedocumented in this encounter Additional Health Concerns Assessment Noted Time PHQ-9 Depression Total Score: 0 02/27/20 23 3:09 PM EDT documented as of this encounter Care Teams Electro Optical Engineer Relationship Specialty Start Date End Date Mely Vasquez MD [address] [place] [address] PCP - General Family Medicine 05/11/21 documented as of this encounter
--- OUTSIDE RECORDS SUMMARY | 2025-04-12 17:58 | XMS_ITS | Encounter Summary ---
Author Organization [employer] Address [address] [facility] 7t [place] [address] Care Team Providers Care Residential Child Care Counselor Name Role Phone Mely Vasquez MD Primary Care Provider [phone] Reason for Visit * Reason Onset Date Comments FYI 05/15/2023 Encounter Details Date Type Department Care Team ([facility] Contact Info) Description 05/15/2023 Telephone [facility] MEDICINE [address] [place], [place] [phone] Mely Vasquez MD [address] [place], [place] [phone] FY Social History Tobacco Use Types Packs/Day Years [...] pt got an appt for 05/24/2023 at [facility] for lumbar pain. documented in this encounter Plan of Treatment Upcoming Encounters Date Type Department Care Team (Late st Contact Info) Description 05/25/2025 11:00 AM EDT Office Visit [facility] MED[facility]INE [address] [place] [address] documented as of this encounter Visit Diagnoses Not on filedocumented in this encounter Additional Health Concerns Assessment Noted Time PHQ-9 Depression Total Score: 0 02/27/20 23 3:09 PM EDT documented as of this encounter Care Teams Residential Child Care Counselor Relationship Specialty Start Date End Date Mely Vasquez MD [address] [place] [address] PCP - General Family Medicine 05/11/21 documented as of this encounter
--- OUTSIDE RECORDS SUMMARY | 2025-04-12 17:58 | XMS_ITS | Encounter Summary ---
Author Organization [employer] Address 75 [facility] 7t [place] [address] Care Team Providers Care Enforcement Manager Name Role Phone Mely Vasquez MD Primary Care Provider [phone] Reason for Visit * Reason Onset Date Comments Med Refill 04/22/2023 Encounter Details Date Type Department Care Team ([facility] Contact Info) Description 04/22/2023 Telephone [facility] MEDICINE [address] [place], [place] [phone] Mely Vasquez MD [address] [place], [place] [phone] Med Refill Social History Tobacco Use Types [...] Miscellaneous Notes * Telephone Encounter - Kaitlynn Lozano - 04/22/2023 8:32 AM EDT Tc from patient requesting a med refill for medication oxycodone [address] Vasquez documented in this encounter Plan of Treatment Upcoming Encounters Date Type Department Care Team (Late st Contact Info) Description 05/25/2025 11:00 AM EDT Office Visit [facility] MEDICINE [address] [place] [address] documented as of this encounter Visit Diagnoses Not on filedocumented in this encounter Additional Health Concerns Assessment Noted Time PHQ-9 Depression Total Score: 0 02/27/20 23 3:09 PM EDT documented as of this encounter Care Teams Enforcement Manager Relationship Specialty Start Date End Date Mely Vasquez MD [address] [place] [address] PCP - General Family Medicine 05/11/21 documented as of this encounter
--- OUTSIDE RECORDS SUMMARY | 2025-04-12 17:58 | XMS_ITS | Clinical Summary ---
Author Organization [employer] Address [address] [place] [address] [address] [place] [address] Care Team Providers Care Decontaminator Name Role Phone Mely Vasquez MD Primary Care Provider [phone] Allergies Active Allergy Reactions Criticality Noted Date [...] if needed each day. 10/26/19 23 Active montelukast (Singulair) 10 MG tablet Take 10 mg by mouth in the evening. 09/24/19 23 Active naloxone (Narcan) 4 mg/0.1 mL nasal spray Administer 0.1 mL into affected nostril(s). 05/17/20 21 Active senna (Senokot) 8.6 MG tablet TAKE 2 TABLETS BY MOUTH AT BEDTIME NEEDED FOR CONSTIPATION 07/02/20 23 Active fluticasone furoate (Arnuity Ellipta) 200 MCG/ACT [...] 90 tablet 3 08/03/19 25 2025 Active hydrocortisone (Anusol-HC) 2.5 % rectal cream 01/06/20 25 Active pantoprazole (ProtoNix) 40 MG EC tablet TOME 1 TABLETA POR V A ORAL DOS VECES AL D A 12/05/19 25 Active Testosterone 20.25 MG/ACT (1.62%) gel USE 2 PUMP TOPICALLY DAILY FOR 30 DAYS 10/02/19 25 Active amoxicillin-cl avulanate (Augmentin) 875-125 MG tablet TOME 1 TABLETA POR V A ORAL DOS VECES AL D A 03/17/20 25 Active metoclopramide (Reglan) 5 MG tablet 03/29/20 25 Active Probiotic Product (Acidophilus High-Potency) capsule Take 1 capsule by mouth Once per day. 03/11/20 25 Active albuterol 108 (90 Base) MCG/ACT inhaler Inhale 2 puffs every 4 (four) hours if needed for wheezing. 18 g 3 03/30/20 25 Active oxyCODONE (Roxicodone) 15 MG immediate release tabletIndicati ons:Lumbar disc disease Take 1 tablet (15 mg) by mouth every 8 (eight) hours if needed (pain) for up to 28 days. Do not start before April 07, 2025. 84 tablet 04/07/20 25 2024 Active fluticasone (Flonase) 50 MCG/ACT nasal spray SHAKE LIQUID AND USE 1 SPRAY IN EACH NOSTRIL EVERY DAY 06/01/20 22 2024 Discontinued(M ed list cleanup (will not trigger notification to Pharmacy)) traZODone (Desyrel) 50 MG tablet Take 50 mg by mouth if needed at bedtime. 08/07/19 24 2024 Discontinued(M ed list cleanup (will not trigger notification to Pharmacy)) albuterol 108 (90 Base) MCG/ACT inhaler every 4 to 6 hours 06/09/202024 Discontinued(R eorder (will not trigger notification to Pharmacy)) famotidine (Pepcid) 40 MG tablet TOME 1 TABLETA POR V A ORAL TODOS LOS D AL ACOSTARSE 01/03/20 25 2024 Discontinued(M ed list cleanup (will not trigger notification to Pharmacy)) solifenacin (VESIcare) 5 MG tablet TOME YANIV TABLETA POR V A ORAL AL ACOSTARSE 12/17/19 25 2024 Discontinued(M ed list cleanup (will not trigger notification to Pharmacy)) sucralfate (Carafate) 1 g tablet TOME 1 TABLETA POR V A ORAL JASWINDER VECES AL D A 01/03/20 25 2024 Discontinued(M ed list cleanup (will not trigger notification to Pharmacy)) oxyCODONE (Roxicodone) 15 MG immediate release tabletIndicati ons:Lumbar disc disease Take 1 tablet (15 mg) by mouth every 8 (eight) hours if needed (pain) for up to 28 days. Do not start before March 11, 2025. 84 tablet 03/11/20 25 2024 Discontinued(R eorder (will not trigger notification to Pharmacy)) Active Problems Problem Noted Date Diagnosed Date Erectile dysfunction 04/04/2025 Assessment & Plan (04/04/2025 11:55 AM EDT): - Following with [facility] urology, last seen February 2025 - Continue tadalafil as prescribed Hypogonadism in male 04/04/2025 Assessment & Plan (04/04/2025 11:48 AM EDT): - Following with [facility] urologist, last seen in February 2025 - Continue testosterone as prescribed Colitis 04/04/2025 Assessment & Plan (04/04/2025 12:07 PM EDT): - Patient has already completed her antibiotic treatment (metronidazole and quinolone), and now is on another course of antibiotic (Augmentin). -Status post systemic steroid treatment - Continue metoclopramide as prescribed by GI - Continue following with [facility] GI At risk for nutrition deficiency 01/11/2025 Assessment [...] disease, postlaminectomy syndrome of lumbar region Last SNOW PLOW OPERATOR Agreement: 02/16/25 Tier: 2.5 (Nurse Receptionist Q3-4 mo) - eval by PCP December [...] for cardiovascular disease 08/2023 Assessment & Plan (04/04/2025 11:54 AM EDT): - 10 year ASCVD risk is > 6.8 %, mainly due to smoking and elevated BP - continue working on smoking cessation - discussed about cholesterol lowering medication therapy if his BP remains elevated - consider coronary calcium score - consider discussing about ASA Assessment & Plan (08/09/2024 10:43 AM EST): [...] (benign prostatic hyperplasia) 12/24/2023 Assessment & Plan (04/04/2025 11:58 AM EDT): - seen by urologist, [facility] - previously on tamsulosin, but patient states he was prescribed tamsulosin for a short-term only. Assessment & Plan (12/29/2024 1:12 PM EDT): - seen by urologist, [facility] - patient states he was prescribed tamsulosin for a short-term only. Will check the treatment plan - tamsulosin will help his BP as well Assessment & Plan (08/03/2024 3:19 PM EST): - seen by urologist, [facility] - patient states he was prescribed tamsulosin for a short-term only. Will check the treatment plan - tamsulosin will help his BP as well Assessment & Plan (04/10/2024 6:39 AM EDT): - seen by urologist, [facility] - patient states he was prescribed tamsulosin [...] enucleation - evaluated by ocular specialist and business account specialist - treatment will not be covered by [...] ENT - consider evaluation by allergy / hedis specialist for allergy test / immunotherapy. Assessment & Plan (12/27/2022 12:16 PM EDT): - continue montelukast - restart cetirizine - consider college specialist for allergy testing / immunotherapy Chronic [...] smoking cessation Hypertension 12/18/2022 Assessment & Plan (04/04/2025 11:53 AM EDT): - Goal BP< 130/80 per ACC/AHA guideline - Cont working on lifestyle modifications - Discussed about smoking cessation - Continue valsartan 40 mg daily, consider - Tamsulosin is prescribed by urologist - patient was advised to check BP at home Assessment & Plan (12/29/2024 1:12 PM EDT): [...] without psychotic features 12/18/2022 Assessment & Plan (04/04/2025 12:02 PM EDT): -[facility] provider: Roberta -Psychiatrist: Dr. Chavarria -Clinician: Previously Elyssa Serrano, but pt does not have one currently -Current medications: Alprazolam; sertraline 25 mg daily; trazodone 50 mg nightly -Previously prescribed: trazodone; diazepam; duloexetine, but has not been taking it as prescribed -Treatment Hx: --sertraline - incomplete trial --escitalopram - incomplete trial --mirtazapine - pt disliked; bothered me: --citalopram - incomplete trial --amitriptyline - pt perceives that it was ineffective --venlafaxine 37.5 mg - pt was unable to tolerate higher dose --Clonazepam-patient preferred alprazolam - continue following with current [facility] provider Assessment & Plan (02/27/2023 6:34 AM EDT): -[facility] provider: [facility] -Psychiatrist: Dr. Chavarria -Clinician: Previously Elyssa [...] higher dose - continue following with current [facility] provider Assessment & Plan (12/18/2022 2:48 PM EDT): -[facility] provider: [facility] -Psychiatrist: Dr. Chavarria -Clinician: Previously Elyssa Serrano, but pt does not have one currently -Evaluated by Nicko from [facility] -Pt has an upcoming appt with [...] daily. Chronic GERD 12/18/2022 Assessment & Plan (04/04/2025 12:08 PM EDT): - Followed by [facility] GI, last seen in February 2025 - EGD in Feb 2024, small hiatal hernia and minimal gastritis - Continue Omeprazole 20mg BID - work on smoking cessation - avoid NSAIDs - H. Pylori test was negative in October 2023 Assessment & Plan (12/29/2024 1:12 PM EDT): - Followed by [facility] GI, last seen in May 2024, upcoming follow up appointment in Jul 2024 - EGD in Feb 2024, small hiatal hernia and minimal gastritis - Continue Omeprazole 20mg BID - work on smoking cessation - avoid NSAIDs - H. Pylori test was negative in October 2023 Assessment & Plan (08/09/2024 10:38 AM EST): - Followed by [facility] GI, last seen in May 2024, upcoming follow up appointment in Jul 2024 - EGD in Feb 2024, small hiatal hernia and minimal gastritis - Continue Omeprazole 20mg BID - work on smoking cessation - avoid NSAIDs - H. Pylori test was negative in October 2023 Assessment & Plan (04/07/2024 2:23 PM EDT): - Followed by [facility] GI, last seen in November 2023 - Continue Omeprazole 20mg BID - work on smoking cessation - avoid NSAIDs - H. Pylori test was negative in October 2023 Assessment & Plan (12/24/2023 4:41 PM EDT): - Followed by [facility] GI, last seen in November 2023 - Continue Omeprazole 20mg BID - work on smoking cessation - avoid NSAIDs - H. Pylori test was negative in October 2023 Assessment & Plan (08/25/2023 4:45 PM EST): - Followed by [facility] JOLLY, last seen in Jun 2023 - Continue Omeprazole 20mg BID - work on smoking cessation - avoid NSAIDs Assessment & Plan (12/18/2022 2:52 PM EDT): Seen by JOLLY, NOVEMBER 2022 -Rx Omeprazole 20mg BID -cont current tx plan -work on smoking cessation -avoid NSAIDs Blurry vision, right eye 12/18/2022 Assessment & Plan (08/25/2023 4:55 PM EST): - seen by business account specialist in Mar 2023 - dry eye - [...] stimulator removed on 09/26/[address] Beasley ([facility]). It was placed 7-8 years ago [...] post-laminectomy syndrome. -Continue judicious use of oxycodone -SNOW PLOW OPERATOR agreement is up to date - Follow up in 3-4 mo or sooner prn Assessment & Plan (02/27/2023 6:20 AM EDT): - on chronic opioid treatment with oxycodone 15 mg q8 hours since 07/17/2017. - Nerve stimulator removed on 09/26/[address] Beasley ([facility]). It was placed 7-8 years ago [...] of arachnoiditis. -Continue judicious use of oxycodone -SNOW PLOW OPERATOR agreement is up to date - Follow up in 3 mo or sooner prn - recent exacerbation in pain; adding celecoxib for short-term Assessment & Plan (12/18/2022 2:40 PM EDT): -He's on chronic opioid of oxycodone 15 mg q8 hours since 07/17/2017. -Nerve stimulator removed on 09/26/[address] Beasley ([facility]). It was placed 7-8 years ago [...] of arachnoiditis. -Continue judicious use of oxycodone -SNOW PLOW OPERATOR agreement review is up to date Vitamin D deficiency 11/05/2022 Hypertriglyceridemia 12/11/2018 Assessment & Plan (04/04/2025 11:52 AM EDT): - last lab: 01/14/2025 - 10-year ASCVD risk is 6.8% - Continue working on lifestyle modification and risk factor management - If he continues to smoke, we will need to start statin therapy/cholesterol lowering medication in the near future Nicotine dependence with current use 08/08/2018 Assessment & Plan (04/04/2025 12:04 PM EDT): -Failed on nicotine replacement treatment: He tried patches, gums, and Nicotrol nasal spray -Adverse reaction to varenicline 1mg . Pt developed stomach pain when it was increased from 0.5 to 1 mg. He does not want to restart at lower dose -Pt reports he smokes around 5 cigarettes a day -Continue working on smoking cessation Assessment & Plan (12/29/2024 1:13 PM EDT): [...] smoking cessation Asthma 11/20/2016 Assessment & Plan (04/04/2025 12:03 PM EDT): -Last exacerbation in January 2022, Tx for acute bronchitis with azithromycin and prednisone, Flovent was added -Last PFT in Mar 2022. No obstructive or restrictive ventilatory defect. No bronchodilator response. Increased residual volume suggests air trapping. -Continue Flovent as maintenance for now -Consider treating as COPD; consider pulm referral -Continue albuterol prn -Consider ICS/LABA prn -Work on smoking cessation Assessment & Plan (12/29/2024 1:13 PM EDT): [...] (12/24/2023 4:39 PM EDT): - following with [facility] GI, last seen on 12/18/23 - plan to evaluate with EGD and abdominal US - continue omeprazole and sucralfate Colon cancer screening 12/19/202308/09 Acute upper respiratory infection 12/13/2022 02/26/2023 Encounters * This document contains information received from the source organization and may not represent a complete record from that organization. Date Type Department Care Team Description 04/05/2025 Refill [facility] [address] [place] [address] Liset Cage, RN Lumbar disc disease 04/05/2025 Telephone [facility] [address] [place] [address] Liste Cage, RN SNOW PLOW OPERATOR 04/05/2025 Telephone [facility] [address] [place] [address] Mely Vasquez MD Med Refill 03/30/2025 1:30 PM EDT Office Visit [facility] [address] [place] [address] Mely Vasquez MD Hypertension, unspecified type (Primary Dx); At increased risk for cardiovascular disease; Hypertriglyceridemia; Severe recurrent major depression without psychotic features (CMS/HCC); Depression with anxiety; Moderate persistent asthma without complication; Hypogonadism in male; Abdominal bloating; Chronic GERD; Constipation, unspecified constipation type; Erectile dysfunction, unspecified erectile dysfunction type; Benign prostatic hyperplasia, unspecified whether lower urinary tract symptoms present; Nicotine dependence with current use; Colitis 03/30/2025 Travel 03/23/2025 Orders Only GENERIC EXTERNAL DATA DEPARTMENT Provider, Generic External Data 03/09/2025 Refill [facility] [address] [place] [address] Liset Cage RN Lumbar disc disease 03/09/2025 Telephone [facility] [address] [place] [id number] Mely Vasquez MD Med Refill 02/16/2025 11:00 AM EDT Office Visit [facility] [address] [place] [address] Loree Mcclendon FNP Lumbar disc disease (Primary Dx); Long-term current use of opiate analgesic 02/16/2025 Travel 02/11/2025 Telephone [facility] [address] [place] [address] Mely Vasquez MD alyssa recall 02/11/2025 Refill [facility] [address] [place] [address] Mely Vasquez MD Lumbar disc disease 01/28/2025 Telephone [facility] [address] [place] [address] Mely Vasquez MD Durable Medical Equipment 01/26/2025 Telephone [facility] [address] [place] [address] Liset Cage RN 01/26/2025 Travel 01/20/2025 Orders Only GENERIC EXTERNAL DATA DEPARTMENT Provider, Generic External Data 01/20/2025 Telephone [facility] [address] [place] [address] Mely Vasquez MD Medication Question 01/15/2025 Results Follow-Up [facility] [address] [place] [address] Mely Vasquez MD TSH with Reflex to Free T4, Comprehensive Metabolic Panel, Lipid Panel with Reflex to Direct LDL, Vitamin D, 25-Hydroxy, Total, Immunoassay 01/11/2025 Telephone [facility] [address] [place] [address] Mely Vasquez MD Durable Medical Equipment 01/11/2025 Refill [facility] [address] [place] [address] Liset Cage RN Lumbar disc disease 01/11/2025 Telephone [facility] [address], [place] [id number] Mely Vasquez MD Med Refill from Last 3 Months Immunizations Immunization Administration Dates Next Due Hep B, adult 03/30/2025,08/03/2024 Moderna Covid-19 Vaccine 12+ 06/12/2021,12/11/19 21,11/12/2020 Pneumococcal [...] Sign Reading Time Taken Comments Blood Pressure 132/90 03/30/2025 1:37 PM EDT Pulse 82 03/30/2025 1:27 PM EDT Temperature 36.1 C (96.9 F) 03/30/2025 1:27 PM EDT Respiratory Rate 17 03/30/2025 1:27 PM EDT Oxygen Saturation 100% 03/30/2025 1:27 PM EDT Inhaled Oxygen Concentration - - Weight 58.1 kg (128 lb) 03/30/2025 1:27 PM EDT Height 157.5 cm (5' 2 ) 03/30/2025 1:27 PM EDT Body Mass Index 23.41 03/30/2025 1:27 PM EDT Plan of Treatment Upcoming Encounters Date Type Department Care Team (Late st Contact Info) Description 05/25/2025 11:00 AM EDT Office Visit [facility] [address] [place] [address], [place] [address] Health Maintenance Due Date Last Done Comments CT Colonography 1975 Dental Oral Exam 1975 Dental Prophylaxis 1975 Dental X-Ray: Full Mouth 1975 FIT DNA/Cologuard 1975 FIT 1975 FOBT 1975 Sigmoidoscopy 1975 Family Planning (PISQ) 12/21/1990 Hepatitis C Screening 12/21/1993 Dental X-Ray: Bitewings 09/14/2024 09/13/2023 COVID-19 Vaccine (4 - 2024-2 6 season) 2025 06/12/2021, 12/10/2020, 11/12/2020 Influenza Vaccine (#1) 2025 Hepatitis B Vaccines (3 of 3 - 19+ 3-dose series) 05/25/2025 03/30/2025, 08/03/2024 Depression Monitoring 06/30/2025 12/29/2024 , 12/29/2024 Alcohol/Substance Use Screening 08/03/2025 08/03/2024 Zoster Vaccines (1 of 2) 12/21/2025 SDOH Screening 12/29/2025 12/29/2024 Disability Screening 03/30/2026 03/30/2025 Tobacco Screening 03/30/2026 03/30/2025 Colonoscopy 10/10/2027 10/09/2022 Colorectal Cancer Screening 10/10/2027 [...] Procedure Name Priority Date/Time Associated Diagnosis Comments CT ABDOMEN PELVIS W CONTRAST Routine 04/12/2025 3:13 PM EDT NM GASTRIC EMPTYING SOLID Routine 04/08/2025 8:30 AM EDT TESTOSTERONE, FREE (DIALYSIS) AND TOTAL,MS Routine 03/23/2025 2:22 PM EDT PSA, TOTAL WITH REFLEX TO PSA, FREE Routine 03/23/2025 2:22 PM EDT POCT CHARLY-14 URINE DRUG SCREEN Routine 02/16/2025 [...] 1 :55 PM EDT Hypertension, unspecified type BITEWING - SINGLE RADIOGRAPHIC IMAGE Routine 09/13/2023 1:00 PM EST HM COLONOSCOPY Routine 10/09/2022 ZZZ HISTORICAL HIV AB/AG Routine 04/27/2022 2:42 PM EDT from Last 3 Months or Most Recently Relevant to Health Maintenance Results * CT Abdomen Pelvis w/ Contrast (04/12/2025 3:13 PM EDT) Anatomical Region Laterality Modality Body, Pelvis, Abdomen Computed T omography 04/12/2025 3:13 PM EDT Narrative 04/12/2025 3:57 PM EDT [address] [address] [address] Scan Report Signed Patient: Hosea Stoner MR#: [id number] : 1975 Acct:[id number] Age/Sex: 49 / M ADM Date: 04/12/25 Loc: HO.CT Attending Dr: Susanna ROBLES Ordering Physician: Susanna Sanchez Date of Service: 04/12/25 Procedure(s): CT abdomen pelvis w IV con Accession Number(s): [id number] cc: Susanna Sanchez; Mely Vasquez MD Report Number: [id number]: Total DLP = 214.00 mGy-cm Reason for Exam: R10.9 - Unspecified abdominal pain EXAMINATION: CT ABDOMEN AND PELVIS WITH CONTRAST CLINICAL INFORMATION: Unspecified abdominal pain. R10.9 COMPARISON: December 02, 2024 TECHNIQUE: Multidetector volumetric images were obtained from the superior aspect of the liver through the pubic symphysis following administration 85 mL of Omnipaque 350 intravenous contrast. Sagittal and coronal reformatted images were obtained on the technologist's workstation. Oral contrast: Yes This CT examination was performed using dose optimization techniques as appropriate, variously including the following: *Automated exposure control *Adjustment of mA and/or kV according to patient size (this includes techniques or standardized protocols for targeted exams where dose is matched to indication/reason for exam; i.e. extremities or head) *Use of iterative reconstruction technique DLP: 214 mGy centimeter. FINDINGS: LUNG BASES: No acute airspace disease. LIVER, GALLBLADDER, AND BILIARY TREE: Liver measures 15 cm. There is a faint flash, 8 mm enhancing in the right hepatic lobe. There are multifocal, different sizes, round lobulated less than 7 mm low density likely fluid density lesions throughout the parenchyma. Main portal veins, hepatic veins and intrahepatic portion of the IVC are patent. Gallbladder is fluid-filled nondistended. No pericholecystic fluid collection or gallbladder wall thickening. No intrahepatic or extrahepatic biliary ductal dilatation. PANCREAS: No focal mass. No peripancreatic fluid collection. No main pancreatic ductal dilatation. SPLEEN: 7 cm. No focal lesion. ADRENAL GLANDS: No nodular lesion. KIDNEYS AND URETERS: No hydronephrosis. No renal mass. No gross nephrolithiasis. Normal enhancement pattern of the renal parenchyma. No dilatation of the uterus. BLADDER: Fluid-filled nearly collapsed. GASTROINTESTINAL TRACT: There is no intestinal obstruction pattern. There is mild intestinal wall thickening, rectosigmoid colon distal descending colon. No pneumatosis intestinalis. There is a segmental intestinal wall thickening distal ileal lobes. Appendix is normal. No ascites. No pneumoperitoneum. No peripheral enhancing fluid collections. ABDOMINAL WALL: There is a lobulated 2 cm fluid density in the left internal inguinal canal. No umbilical hernia. LYMPH NODES: No mesenteric or retroperitoneal lymphadenopathy. VASCULAR: Thin the abdominal aorta wall and iliac arteries. No aneurysm or dissection abdominal aorta. PELVIC VISCERA: Not enlarged. OSSEOUS STRUCTURES: Trans pedicle screws at L5-S1, bilaterally. Grade 1 anterolisthesis L5-S1. Facet joint hypertrophy at L4-5. Status post bilateral laminectomy, L5-S1. Small marginal osteophyte formation T11-T12. No acute fracture or dislocation in either hip. No acute fracture in the bony pelvis. CT/CT abdomen pelvis w IV con IMPRESSION: Concerning inflammatory bowel disease such as Crohn's disease versus less likely ulcerative colitis. No intestinal obstruction or gross enteroenteric fistula or peritoneal abscess. Probable flash hemangioma, right hepatic lobe. Small hepatic cysts. 2 cm fluid density internal left inguinal canal. Overall no gross change. Fleischner guidelines were followed. Electronically signed by: Piotr Gonzalez MD 04/12/2025 03:55 PM EDT Dictated By: Piotr Macias MD Signed By: <Electronically signed by Piotr Buitrago MD in OV> 04/12/25 1555 DD/ 1513 TD/TT: 04/12/25 1532 Brilliandeer Looper: Procedure Note Donotuseinterpreter, Image - 04/12/[address] [place] [address] CT Scan Report Signed Patient: Hosea Stoner [facility]#: [id number] : 1975Acct:[id number] Age/Sex: 49 / MADM Date: 04/12/25 Loc: HO.CT Attending Dr: Susanna ROBLES Ordering Physician: Susanna Sanchez Date of Service: 04/12/25 Procedure(s): CT abdomen pelvis w IV con Accession Number(s): [id number] cc: Susanna Sanchez; Mely Vasquez MD Report Number: [id number]: Total DLP = 214.00 mGy-cm Reason for Exam: R10.9 - Unspecified abdominal pain EXAMINATION: CT ABDOMEN AND PELVIS WITH CONTRAST CLINICAL INFORMATION: Unspecified abdominal pain. R10.9 COMPARISON: December 02, 2024 TECHNIQUE: Multidetector volumetric images were obtained from the superior aspect of the liver through the pubic symphysis following administration 85 mL of Omnipaque 350 intravenous contrast. Sagittal and coronal reformatted images were obtained on the technologist's workstation. Oral contrast: Yes This CT examination was performed using dose optimization techniques as appropriate, variously including the following: *Automated exposure control *Adjustment of mA and/or kV according to patient size (this includes techniques or standardized protocols for targeted exams where dose is matched to indication/reason for exam; i.e. extremities or head) *Use of iterative reconstruction technique DLP: 214 mGy centimeter. FINDINGS: LUNG BASES: No acute airspace disease. LIVER, GALLBLADDER, AND BILIARY TREE: Liver measures 15 cm. There is a faint flash, 8 mm enhancing in the right hepatic lobe. There are multifocal, different sizes, round lobulated less than 7 mm low density likely fluid density lesions throughout the parenchyma. Main portal veins, hepatic veins and intrahepatic portion of the IVC are patent. Gallbladder is fluid-filled nondistended. No pericholecystic fluid collection or gallbladder wall thickening. No intrahepatic or extrahepatic biliary ductal dilatation. PANCREAS: No focal mass. No peripancreatic fluid collection. No main pancreatic ductal dilatation. SPLEEN: 7 cm. No focal lesion. ADRENAL GLANDS: No nodular lesion. KIDNEYS AND URETERS: No hydronephrosis. No renal mass. No gross nephrolithiasis. Normal enhancement pattern of the renal parenchyma. No dilatation of the uterus. BLADDER: Fluid-filled nearly collapsed. GASTROINTESTINAL TRACT: There is no intestinal obstruction pattern. There is mild intestinal wall thickening, rectosigmoid colon distal descending colon. No pneumatosis intestinalis. There is a segmental intestinal wall thickening distal ileal lobes. Appendix is normal. No ascites. No pneumoperitoneum. No peripheral enhancing fluid collections. ABDOMINAL WALL: There is a lobulated 2 cm fluid density in the left internal inguinal canal. No umbilical hernia. LYMPH NODES: No mesenteric or retroperitoneal lymphadenopathy. VASCULAR: Thin the abdominal aorta wall and iliac arteries. No aneurysm or dissection abdominal aorta. PELVIC VISCERA: Not enlarged. OSSEOUS STRUCTURES: Trans pedicle screws at L5-S1, bilaterally. Grade 1 anterolisthesis L5-S1. Facet joint hypertrophy at L4-5. Status post bilateral laminectomy, L5-S1. Small marginal osteophyte formation T11-T12. No acute fracture or dislocation in either hip. No acute fracture in the bony pelvis. CT/CT abdomen pelvis w IV con IMPRESSION: Concerning inflammatory bowel disease such as Crohn's disease versus less likely ulcerative colitis. No intestinal obstruction or gross enteroenteric fistula or peritoneal abscess. Probable flash hemangioma, right hepatic lobe. Small hepatic cysts. 2 cm fluid density internal left inguinal canal. Overall no gross change. Fleischner guidelines were followed. Electronically signed by: Piotr Gonzalez MD 04/12/2025 03:55 PM EDT Dictated By: Piotr Macias MD Signed By: <Electronically signed by Piotr Buitrago MDin OV> 04/12/25 1555 DD/ 1513 TD/TT: 04/12/25 1532 Brilliandeer Looper: [facility] External Provider IMG CT PROCEDURES Final Result * NM Gastric Emptying Solid (04/08/2025 8:30 AM EDT) Anatomical Region Laterality Modality Body Nuclear Medicine 04/08/2025 8:30 AM EDT Narrative 04/08/2025 12:30 PM EDT [address] [address] Nuclear Medicine Report Signed Patient: Hosea Stoner MR#: [id number] : 1975 Acct:[id number] Age/Sex: 49 / M ADM Date: 04/08/25 Loc: [facility] Attending Dr: Susanna ROBLES Ordering Physician: Susanna Sanchez Date of Service: 04/08/25 Procedure(s): ME gastric emptying study Accession Number(s): [id number] cc: Susanna Sanchez; Mely Vasquez MD Reason for Exam: R11.2 - Nausea with vomiting, unspecified EXAMINATION: ME RADIONUCLIDE SOLID FOOD GASTRIC EMPTYING 4-HOUR STUDY CLINICAL INFORMATION: R11.2 - Nausea with vomiting, unspecified COMPARISON: There are no prior studies available for comparison. TECHNIQUE: A standard meal consisting of 4 oz of Egg Beaters brand tagged with 0.92 mCi Tc-99m Sulfur Colloid, 4 oz water and 1 slice of toast with jelly was administered orally to the patient. Images were obtained using a dual head gamma camera in the anterior and posterior projections over of the stomach immediately post ingestion and at hourly intervals up to 4 hours post ingestion. The anterior and posterior counts at each time interval were averaged using the geometric mean and expressed as percentage of the immediate post ingestion counts. FINDINGS: There is visualization of activity in the stomach immediately post ingestion. As the study progresses, there is clearance of activity from the stomach and visualization of progressively increasing small bowel activity. By the end of the study, there is almost no retention noted in the stomach. Retention in the stomach at each time interval was: 1 hour 60% (normal 37%-90%) 2 hours 33% (normal 30%-60%) 3 hours 2% ME/ME gastric emptying study IMPRESSION: Normal 4-hour solid food gastric emptying study. For solid meal, rapid gastric emptying is less than 30% at 60 minutes. Delayed gastric emptying criteria is more than 60% remaining at 120 minutes or more than 10% at 240 minutes. The 4-hour value is the best discriminator of a normal or abnormal result). Gastric emptying study grading per JNMT Consensus Recommendations in 2008 (https://tech.snmjournals.org/content/36/1/44) Grade 1 (mild retention): 11-20% at 4h Grade 2 (moderate retention): 21-35% at 4h Grade 3 (severe retention): 36-50% at 4h Grade 4 (very severe retention): >50% retention at 4h Electronically signed by: Noe Martinez MD 04/08/2025 12:27 PM EDT RP Dictated By: Noe Martinez MD Signed By: <Electronically signed by Noe Martinez MD in OV> 04/08/25 1227 DD/ 0830 TD/TT: 04/08/25 1205 Brilliandeer Looper: Procedure Note Donotuseinterpreter, Image - 04/08/2025 [place] [address] Nuclear Medicine Report Signed Patient: Hosea Stoner [facility]#: [id number] : 1975Acct:[id number] Age/Sex: 49 / MADM Date: 04/08/25 Loc: [facility] Attending Dr: Susanna RBOLES Ordering Physician: Susanna Sanchez Date of Service: 04/08/25 Procedure(s): NM gastric emptying study Accession Number(s): [id number] cc: Susanna Sanchez; Mely Vasquez MD Reason for Exam: R11.2 - Nausea with vomiting, unspecified EXAMINATION: NM RADIONUCLIDE SOLID FOOD GASTRIC EMPTYING 4-HOUR STUDY CLINICAL INFORMATION: R11.2 - Nausea with vomiting, unspecified COMPARISON: There are no prior studies available for comparison. TECHNIQUE: A standard meal consisting of 4 oz of Egg Beaters brand tagged with 0.92 mCi Tc-99m Sulfur Colloid, 4 oz water and 1 slice of toast with jelly was administered orally to the patient. Images were obtained using a dual head gamma camera in the anterior and posterior projections over of the stomach immediately post ingestion and at hourly intervals up to 4 hours post ingestion. The anterior and posterior counts at each time interval were averaged using the geometric mean and expressed as percentage of the immediate post ingestion counts. FINDINGS: There is visualization of activity in the stomach immediately post ingestion. As the study progresses, there is clearance of activity from the stomach and visualization of progressively increasing small bowel activity. By the end of the study, there is almost no retention noted in the stomach. Retention in the stomach at each time interval was: 1 hour 60% (normal 37%-90%) 2 hours 33% (normal 30%-60%) 3 hours 2% NM/NM gastric emptying study IMPRESSION: Normal 4-hour solid food gastric emptying study. For solid meal, rapid gastric emptying is less than 30% at 60 minutes. Delayed gastric emptying criteria is more than 60% remaining at 120 minutes or more than 10% at 240 minutes. The 4-hour value is the best discriminator of a normal or abnormal result). Gastric emptying study grading per JNMT Consensus Recommendations in 2008 (https://tech.snmjournals.org/content/36/44) Grade 1 (mild retention): 11-20% at 4h Grade 2 (moderate retention): 21-35% at 4h Grade 3 (severe retention): 36-50% at 4h Grade 4 (very severe retention): >50% retention at 4h Electronically signed by: Noe Martinez MD 04/08/2025 12:27 PM EDT Dictated By: Noe Martinez MD Signed By: <Electronically signed by Noe Martinez MD in OV> 04/08/25 1227 DD/ 0830 TD/TT: 04/08/25 1205 Brilliandeer Looper: [facility] External Provider IMG NM PROCEDURES Final Result * PSA, Total With Reflex to PSA, Free (03/23/2025 2:22 PM EDT) PSA,Total (Free>4and<10) 0.48 0.00 - 4.00 ng/mL [facility] Comment:A Free PSA was not p erformed: The percentage of Free PSA can be used to enhance the differentiation of prostate cancer from benign prostatic disease in subjects whose PSA levels are between 4.0 and 10.0 ng/mL. For subjects whose PSA levels are below 4.0 or above 10.0 ng/mL, the risk of prostate cancer is determined on the basis of the PSA alone. Therefore the % Free PSA is recommended only for those subjects whose PSA levels are between 4.0 and 10.0 ng/mL.PSA methodology: Clinical InnovationsniTraveDoc i ChemiluminescentMicroparticle Immunoassay (CMIA) 03/23/2025 2:22 PM EDT 03/23/2025 2:22 PM EDT us Generic External Data Provider LAB BLOOD ORDERAB LES Final Result Performing Organization Address City/[facility]/ZIP Co de Phone Number [facility] [address] [place] [phone] [phone] * Testosterone, Free (Dialysis) And Total, MS (03/23/2025 2:22 PM EDT) Testosterone, Total 626 250 - 1100 ng/dL [facility] Comment:For additional infor shanon, please refer tohttp://education.StatSheet/faq/RqbgzNuzhgdyvjfnuKKCMAQBMO174(This link is being provided for informational/educational purposes only.)This test was developed and its analytical performancecharacteristics have been determined by [place]. It hasnot been cleared or approved by the U.S. Food and DrugAdministration. This assay has been validated pursuantto the CLIA regulations and is used for clinicalpurposes. Testosterone, Free 97.0 35.0 - 155.0 pg/mL [facility] Comment:This test was develo ped and its analytical performancecharacteristics have been determined by [employer] [place], [place]. It hasnot been cleared or approved by the U.S. Food and DrugAdministration. This assay has been validated pursuantto the CLIA regulations and is used for clinicalpurposes.THIS TEST WAS PERFORMED AT:[employer] [place] [address]BPGSNIYMARYSOL PANTOJA MD,PHD 03/23/2025 2:22 PM EDT 03/23/2025 2:22 PM EDT us Generic External Data Provider LAB BLOOD ORDERAB LES Final Result [facility] [address] [place] [address] [phone] * POCT CHARLY-14 Urine Drug Screen (02/16/2025 11:10 AM EDT) [facility] THC Negative Negative Cocaine Screen, Urine Negative [...] - 02/16/2025 11:10 AM EDT UTOX cup Lot#[id number] Exp. 05/04/26 Internal Pass Control Loree Mcclendon WATCHER LOOKOUT TOWER POINT OF CARE TEST ENTER/EDIT ORDERABLES Final Result * Prom[facility] IBD SGI (01/20/2025 3:28 PM EDT) [facility] Prom[facility] IBD SGI SEE NOTE [facility] Comment:SEE SCANNED RESULTS IN EMR. 01/20/2025 3:28 PM EDT 01/20/2025 3:28 PM EDT us Generic External Data Provider LAB BLOOD ORDERAB LES Final Result [facility] [address] [place] [address] [phone] * C-reactive Protein (01/20/2025 3:28 PM EDT) [facility] C Reactive Protein 0.22 < or = 0.50 mg/dL [facility] 01/20/2025 3:28 PM EDT 01/20/2025 3:28 PM EDT us Generic External Data Provider LAB BLOOD ORDERAB LES Final Result Performing Organization Address [facility]/ZIP Co de Phone Number [facility] [address] [place] [address] [phone] * Vitamin D, 25-Hydroxy, Total, Immunoassay (01/14/2025 1:55 PM EDT) Vitamin D 25-OH Total 41.8 >30 ng/mL [facility] Comment: Health Based Reference Values*< 20 ng/mL Fiouqngcx87-95 ng/mL Insufficient> 30 ng/mL Sufficient*Christopher BLANCHARD. N [...] ORDERABLES Final Resul t Performing Organization Address [facility]/ZIP Co de Phone Number [facility] [address] [place] [address] [phone] * TSH with Reflex to Free T4 (01/14/2025 1:55 PM EDT) TSH reflex Free T4 0.71 0.32 - 4.0 uIU/mL [facility] Blood 01/14/2025 1:55 PM EDT 01/14/2025 1:55 PM EDT Mely Vasquez MD LAB BLOOD ORDERABLES Final Resul t Performing Organization Address [facility] de Phone Number [facility] [address] [place] [phone] * (ABNORMAL) Lipid Panel with Reflex to Direct LDL (01/14/2025 1:55 PM EDT) Triglycerides 106 <150 mg/dL [facility] Comment:Desirable Triglyceri de: less than 150 mg/dLBorderline High Triglyceride 150-199 mg/dLHigh Triglyceride: 200-499 mg/dLVery High Triglyceride: greater than or equal to 5OO mg/dL Cholesterol 136 <200 mg/dL [facility] Comment:Desirable Cholestero l: less than 200 mg/dLBorderline High Cholesterol: 200-239 mg/dLHigh Cholesterol: greater than 239 mg/dL LDL Cholesterol Calculated 77 <100 mg/dL [facility] Comment:Desirable LDL: less than 100 mg/dLNear Optimal/Above Optimal LDL: 110- 129 mg/dLBorderline High LDL: 130-159 mg/dLHigh LDL: 160-189 mg/dLVery High LDL: greater than or equal to 190 mg/dL HDL Cholesterol 38(L) >40 mg/dL [facility] Comment:Desirable HDL: great er than 40 mg/dL Note: This HDL assay may give artificially low results in patients with liver disease. Blood 01/14/2025 1:55 PM EDT 01/14/2025 1:55 PM EDT Mely Vasquez MD LAB BLOOD ORDERABLES Final Resul t Performing Organization Address [facility] Co de Phone Number [facility] [address] [place] [phone] * Comprehensive Metabolic Panel (01/14/2025 1:55 PM EDT) Sodium 142 135 - 145 mmol/L [facility] Potassium 4.0 3.3 - 5.1 mmol/L [facility] Chloride 108 96 - 108 mmol/L [facility] Carbon Dioxide 26 22 - 29 mmol/L [facility] Anion Gap 12 12 - 20 [facility] Urea Nitrogen (BUN) 11 9 - 16 mg/dL [facility] Creatinine, Serum 1.07 0.5 - 1.4 mg/dL [facility] Estimated Glomerular Filt Rate >60 [facility] Comment:Chronic Kidney Disea se: Estimated GFR < 60 mL/min/1.40l3Hmbngf Kidney Disease: Estimated GFR < 15 mL/min/1.73m2 Glucose 108 60 - 115 mg/dL [facility] Calcium 9.1 8.4 - 10.2 mg/dL [facility] Bilirubin, Total 0.6 0.0 - 1.0 mg/dL [facility] Aspartate Amino Transferase 18 5 - 37 U/L [facility] Alanine Aminotransferase 17 0 - 40 U/L [facility] Total Protein 6.5 6.5 - 8.0 g/dL [facility] Albumin Level 4.4 3.5 - 5.0 g/dL [facility] Alkaline Phosphatase 53 39 - 117 U/L [facility] Blood Venous blood specimen / Unknown 01/14/2025 1:55 PM EDT 01/14/2025 1:55 PM EDT us Mely Vasquez MD LAB BLOOD ORDERABLES Final Resul t [facility] [address] [place] [phone] * Hm Colonoscopy (10/09/2022) Colonoscopy Normal Normal Historical Provider HEALTH MAINTENANCE Edited Result - Final * HIV AB/AG (04/27/2022 2:42 PM EDT) Pathologist [facility] HIV AB/AG Nonreactive Nonreactive [facility] [...] of detection of this assay. [employer] HIV Ag/Ab Combo assay result and supplemental [...] Most Recently Relevant to Health Maintenance Insurance [facility] < 65 [facility] STAND ADULT [facility] PPO Care Teams Decontaminator Relationship Specialty Start Date End Date Mely Vasquez MD [address] [place] [address] PCP - General Family Medicine 05/11/21
--- OUTSIDE RECORDS SUMMARY | 2025-04-12 17:58 | XMS_ITS | Encounter Summary ---
Author Organization [employer] Address [address] [place] [address] [address] [place] [address] Care Team Providers Care Piggyback Clerk Name Role Phone Mely Vasquez MD Primary Care Provider [phone] Reason for Visit * Reason Onset Date Comments Appointment Request 01/31/2023 Encounter Details Date Type Department Care Team ([facility] Contact Info) Description 01/31/2023 Telephone [facility] MEDICINE [address] [place] [phone] Mely Vasquez MD [address] [place] [address] Appointment Request Social History Tobacco Use Types [...] from pt requesting to r/s appt from [facility] CONT[facility] OPERATOR on 02/04/2023 due to being out of state. Please contact pt at [phone] documented in this encounter Plan of Treatment Upcoming Encounters Date Type Department Care Team ([facility] Contact Info) Description 05/25/2025 11:00 AM EDT Office Visit [facility] MED[facility] [address] [place] [address] documented as of this encounter Visit Diagnoses Not on filedocumented in this encounter Care Teams Piggyback Clerk Relationship Specialty Start Date End Date Mely Vasquez MD [address] [place] [address] PCP - General Family Medicine 05/11/21 documented as of this encounter
--- OUTSIDE RECORDS SUMMARY | 2025-04-12 17:58 | XMS_ITS | Encounter Summary ---
Author Organization [employer] Address [address] [facility] [address] [place] [address] Care Team Providers Care Cowlman Name Role Phone Mely Vasquez MD Primary Care Provider [phone] Reason for Visit * Reason Onset Date Comments Med Refill 06/26/2023 Encounter Details Date Type Department Care Team ([facility] st Contact Info) Description 06/26/2023 Refill [facility] MEDICINE [address] [place], [place] [phone] Mely Vasquez MD [address] [place], [place] [phone] Lumbar disc disease Social History Tobacco Use [...] oxyCODONE (Roxicodone) 15 MG immediate release tablet [facility]/pharmacy #[id number] [place] [address] - [address] [place] [address] documented in this encounter Plan of Treatment Upcoming Encounters Date Type Department Care Team (Late st Contact Info) Description 05/25/2025 11:00 AM EDT Office Visit [facility] MEDICINE [address] [place] [address] documented as of this encounter Visit Diagnoses Diagnosis Lumbar disc disease Other and unspecified disc disorder of lumbar region documented in this encounter Additional Health Concerns Assessment Noted Time PHQ-9 Depression Total Score: 0 02/27/20 23 3:09 PM EDT documented as of this encounter Care Teams Cowlman Relationship Specialty Start Date End Date Mely Vasquez MD [address] [place] [address] PCP - General Family Medicine 05/11/21 documented as of this encounter
--- OUTSIDE RECORDS SUMMARY | 2025-04-12 17:58 | XMS_ITS | Encounter Summary ---
Author Organization [employer] Address [address] [facility] [address] [place] [address] Care Team Providers Care Junior Estimator Name Role Phone Mely Vasquez MD Primary Care Provider [phone] Reason for Visit * Reason Onset Date Comments Med Refill 06/09/2024 Encounter Details Date Type Department Care Team ([facility] Contact Info) Description 06/09/[address] [facility] MEDICINE [address] [place], [place] [phone] Mely Vasquez MD [address] [place], [place] [phone] Med Refill Social History Tobacco Use Types [...] immediate release tablet To be sent to: [facility]/pharmacy #[id number] [place] [address] - [address] [place] [address] documented in this encounter Plan of Treatment Upcoming Encounters Date Type Department Care Team (Late st Contact Info) Description 05/25/2025 11:00 AM EDT Office [address] [facility] MEDICINE [address] [place] [address] documented as of this encounter Visit Diagnoses Not on filedocumented in this encounter Additional Health Concerns Assessment Noted Time PHQ-9 Depression Total Score: 0 02/27/20 23 3:09 PM EDT documented as of this encounter Care Teams Junior Estimator Relationship Specialty Start Date End Date Mely Vasquez MD [address] [place] [address] PCP - General Family Medicine 05/11/21 documented as of this encounter
== END 2025-04-12 12:59 | disposition home or self-care (01) ==
LOC: HO.CT 12:58
PROVIDERS: PCP Family Medicine; Visit Provider Nurse Practitioner
DX: R10.9 Unspecified abdominal pain (principal)
CPT/HCPCS: 74177; Q9967

== ENCOUNTER → 2025-04-12 13:01 | Outpatient (BNV) | payer OTHER, SELFPAY | PROVIDERS: PCP Family Medicine; Visit Provider Radiology Diagnostic Radiology | DX: K57.32 Diverticulitis of large intestine without perforation or abscess without bleeding (principal) | CPT/HCPCS: 74177 ==

== ENCOUNTER 2025-04-28 14:16 | Outpatient (AMB) | payer OTHER, SELFPAY ==
--- NOTE | 2025-04-28 14:31 | A.OFFVIS_ITS ---
Vital Signs 04/28/25 14:32 Height 5 ft 2 in Weight 127 lb 13.89 oz BMI 23.4 BP 118/87 Blood Pressure Location Lt brachial Position Sitting Pulse 73 Intake Visit Reasons: 2nd opinion/ rectal bleeding, bloating, nausea Intake Note: Hosea presents in the office as a 2nd opinion for rectal bleeding, bloating and nauea. CC: Seen October prior - she wants him to see the MD. Extension Course Counselor Required: Yes Extension Course Counselor Name: Allergies amitriptyline Allergy (Severe, Verified 04/28/25 14:32) Confusion morphine (MORPHINE) Allergy (Severe, Verified 04/28/25 14:32) CONSTIPATION, stomach upset ibuprofen (From MOTRIN) Adverse Reaction (Intermediate, Verified 04/28/25 14:32) ABD PAIN cyclobenzaprine (From FLEXERIL) Adverse Reaction (Mild, Verified 04/28/25 14:32) DRY MOUTH influenza H1N1 Allergy (Intermediate, Uncoded 04/28/25 14:32) Weakness HPI Comments Details: 49 y.o M with PMH of who is here for second opinion for rectal bleeding. Pt reports having intermittent blood in stool for a year. Reports L sided cramping with increased nausea and loss of appetite. x2 CT scans in November and again in Mar show persistent L sided colon wall thickening. CT scan in Mar also shows possible thickening in distal small bowel. Pt and today voice frustration as the results of the last CT scan were not appropriately communicated to the pt. They also were told about ??colon surgery. Pt has previously been on tank terminal gauger Abx x 3 months followed by ?prednisone with minimal relief. Fecal calpro and IBD serology negative. Last colo 2022 without any mucosal abnormalities. x2 ascending colon polyps. [facility] Medical History Screening PSA (prostate specific antigen) Low testosterone Abdominal pain Encounter for monitoring testosterone replacement therapy Upper abdominal pain Herpes simplex Rib pain on left side GERD (gastroesophageal reflux disease) Left inguinal hernia (04/26/24) Left groin hernia Constipation Depression with anxiety Asthma Colon cancer screening Pelvis, multiple open fractures with disruption of pelvic [place] Failed spinal cord stimulator Surgical History Status post inguinal hernia repair using synthetic patch Postop check History of esophagogastroduodenoscopy (EGD) H/O colonoscopy History of arthroscopy of right knee History of back surgery H/O pelvic surgery H/O enucleation of left eyeball Social History Are you a primary animal care specialist to a significant other at home: No Do you presently have visiting nurse or other home services: No Alcohol intake: never Patient Tobacco Use Status: Current everyday Tobacco user Tobacco use type: Cigarette Cigarettes Per Day: 10 Review of Systems Const All systems reviewed & are unremarkable except as noted in HPI and below Physical Exam Exam Exam: No apparent distress Nonicteric Abdomen soft, mildly tender in LLQ, nondistended Alert and oriented x3, normal gait Vital Signs: Last Vital Signs Pulse 73 04/28/25 14:32 BP 118/87 04/28/25 14:32 BMI result Body Mass Index 23.4 Assessment & Plan Assessment & Plan (1) Rectal bleeding: Code(s): K62.5 - Hemorrhage of anus and rectum Category: Medical (2) Left sided abdominal pain: Code(s): R10.9 - Unspecified abdominal pain Category: Medical (3) Left sided colitis: Code(s): K51.50 - Left sided colitis without complications Category: Medical Plan Ddx include IBD, colon ischemia, SCAD, malignancy. Plan: - Urgent colo to be booked - Pt already has golytely prep - Instructions reviewed in Trin[place] and handout provided - HOLD all ABx and steroids for now. Further mgmt contingent on results of colo. Orders: Referrals GI Procedure Notification K52.9 - Noninfective gastroenteritis and colitis, unspecified Coding Level of Care Code Est Pt Level 4 (97460) Diagnoses Rectal bleeding K62.5 Left sided abdominal pain R10.9 Left sided colitis K51.50
[2025-04-28 14:32] VITALS: BP 118/87; PULSE 73; BMI 23.4
--- OUTSIDE RECORDS SUMMARY | 2025-04-28 15:30 | XMS_ITS | Encounter Summary ---
Author Organization [employer] Address [address] [facility] 7t [place] [address] Care Team Providers Care Hvac/R Instructor Name Role Phone Mely Vasquez MD Primary Care Provider [phone] Reason for Visit * Reason Onset Date Comments FYI 05/15/2023 Encounter Details Date Type Department Care Team ([facility] Contact Info) Description 05/15/2023 Telephone [facility] MEDICINE [address] [place], [place] [phone] Mely Vasquez MD [address] [place], [place] [phone] FY Social History Tobacco Use Types Packs/Day [...] pt got an appt for 05/24/[address] [facility] for lumbar pain. documented in this encounter Plan of Treatment Upcoming Encounters Date Type Department Care Team (Late st Contact Info) Description 05/25/2025 11:00 AM EDT Office Visit [facility] MEDICINE [address] [place] [address] documented as of this encounter Visit Diagnoses Not on filedocumented in this encounter Additional Health Concerns Assessment Noted Time PHQ-9 Depression Total Score: 0 02/27/20 23 3:09 PM EDT documented as of this encounter Care Teams Hvac/R Instructor Relationship Specialty Start Date End Date Mely Vasquez MD [address] [place] [address] PCP - General Family Medicine 05/11/21 documented as of this encounter
--- OUTSIDE RECORDS SUMMARY | 2025-04-28 15:30 | XMS_ITS | Encounter Summary ---
Author Organization [employer] Address [address] [facility] 7t [place] [address] Care Team Providers Care Chief Credit Officer Name Role Phone Mely Vasquez MD Primary Care Provider [phone] Reason for Visit * Reason Onset Date Comments Med Refill 03/09/2025 Encounter Details Date Type Department Care Team ([facility] Contact Info) Description 03/09/2025 Telephone [facility] MEDICINE [address] [place], [place] [phone] Mely Vasquez MD [address] [place], [place] [phone] Med Refill Social History Tobacco Use Types [...] release tablet To be sent to: - [facility]/pharmacy #[id number] [place], [place] - [address] [place] [address] documented in this encounter Plan of Treatment Upcoming Encounters Date Type Department Care Team (Late st Contact Info) Description 05/25/2025 11:00 AM EDT Office Visit [facility] MEDICINE [address] [place] [address] documented as of this encounter Visit Diagnoses Not on filedocumented in this encounter Additional Health Concerns Assessment Noted Time PHQ-9 Depression Total Score: 9 12/30/19 25 1:30 PM EDT documented as of this encounter Care Teams Chief Credit Officer Relationship Specialty Start Date End Date Mely Vasquez MD [address] [place] [address] PCP - General Family Medicine 05/11/21 documented as of this encounter
--- OUTSIDE RECORDS SUMMARY | 2025-04-28 15:30 | XMS_ITS | Encounter Summary ---
Author Organization [employer] Address [address] [facility] 7t [place] [address] Care Team Providers Care Fashion Buying Internship Name Role Phone Mely Vasquez MD Primary Care Provider [phone] Reason for Visit * Reason Onset Date Comments Med Refill 01/28/2024 Encounter Details Date Type Department Care Team ([facility] Contact Info) Description 01/28/2024 Telephone [facility] MEDICINE [address] [place], [place] [phone] Mely Vasquez MD [address] [place], [place] [phone] Med Refill Social History Tobacco Use Types [...] be sent to: [facility]/pharmacy #[id number] [place] [address] - [address] [place] [address] documented in this encounter Plan of Treatment Upcoming Encounters Date Type Department Care Team (Late st Contact Info) Description 05/25/2025 11:00 AM EDT Office Visit [facility] MEDICINE [address] [place] [address] documented as of this encounter Visit Diagnoses Not on filedocumented in this encounter Additional Health Concerns Assessment Noted Time PHQ-9 Depression Total Score: 0 02/27/20 23 3:09 PM EDT documented as of this encounter Care Teams Fashion Buying Internship Relationship Specialty Start Date End Date Mely Vasquez MD [address] [place] [address] PCP - General Family Medicine 05/11/21 documented as of this encounter
--- OUTSIDE RECORDS SUMMARY | 2025-04-28 15:30 | XMS_ITS | Encounter Summary ---
Author Organization [employer] Address [address] [facility] 7t [place] [address] Care Team Providers Care Forming Press Operator Name Role Phone Mely Vasquez MD Primary Care Provider [phone] Reason for Visit * Reason Onset Date Comments Med Refill 01/11/2025 Encounter Details Date Type Department Care Team ([facility] Contact Info) Description 01/11/[address] [facility] MEDICINE [address] [place], [place] [phone] Mely Vasquez MD [address] [place], [place] [phone] Med Refill Social History Tobacco Use Types [...] one week supply. To be sent to: [facility]/pharmacy #[id number] [place], [place] - [address] [place] [address] documented in this encounter Plan of Treatment Upcoming Encounters Date Type Department Care Team (Late st Contact Info) Description 05/25/2025 11:00 AM EDT Office Visit [facility] MEDICINE [address] [place] [address] documented as of this encounter Visit Diagnoses Not on filedocumented in this encounter Additional Health Concerns Assessment Noted Time PHQ-9 Depression Total Score: 9 12/30/19 25 1:30 PM EDT documented as of this encounter Care Teams Forming Press Operator Relationship Specialty Start Date End Date Mely Vasquez MD [address] [place] [address] PCP - General Family Medicine 05/11/21 documented as of this encounter
--- OUTSIDE RECORDS SUMMARY | 2025-04-28 15:30 | XMS_ITS | Encounter Summary ---
Author Organization [employer] Address [address] [facility] 7t [place] [address] Care Team Providers Care Inspector Shells Name Role Phone Mely Vasquez MD Primary Care Provider [phone] Reason for Visit * Reason Onset Date Comments Med Refill 12/10/2024 Encounter Details Date Type Department Care Team ([facility] Contact Info) Description 12/10/2024 Telephone [facility] MEDICINE 230 [place], [place] [phone] Mely Vasquez MD 230 [place], [place] [phone] Med Refill Social History Tobacco Use Types [...] immediate release tablet To be sent to: [facility]/pharmacy #[address] [place] [address] * Telephone Encounter - Kami Serrano - 12/10/2024 8:41 AM EDT TC from pt requesting medication refill. Medications needing refill : oxyCODONE (Roxicodone) 15 MG immediate release tablet To be sent to: [facility]/pharmacy #[address] [place] [address] too soon for refill. Pt was advised. documented in this encounter Plan of Treatment Upcoming Encounters Date Type Department Care Team ([facility] st Contact Info) Description 05/25/2025 11:00 AM EDT Office Visit [facility] MEDICINE [address] [place] [address] documented as of this encounter Visit Diagnoses Not on filedocumented in this encounter Additional Health Concerns Assessment Noted Time PHQ-9 Depression Total Score: 0 02/27/20 23 3:09 PM EDT documented as of this encounter Care Teams Inspector Shells Relationship Specialty Start Date End Date Mely Vasquez MD [address] [place] [address] PCP - General Family Medicine 05/11/21 documented as of this encounter
--- OUTSIDE RECORDS SUMMARY | 2025-04-28 15:30 | XMS_ITS | Encounter Summary ---
Author Organization [employer] Address [address] [facility] 7t [place] [address] Care Team Providers Care Mailhouse Operator Name Role Phone Mely Vasquez MD Primary Care Provider [phone] Reason for Visit * Reason Onset Date Comments Med Refill 01/02/2024 Encounter Details Date Type Department Care Team ([facility] Contact Info) Description 01/02/2024 Telephone [facility] MEDICINE 230 [place], [place] [phone] Mely Vasquez MD 230 [place], [place] [phone] Med Refill Social History Tobacco Use Types [...] tablet To be sent to: [facility]/PHARMACY #[id number] [place] [address] - [address] [place] [address] documented in this encounter Plan of Treatment Upcoming Encounters Date Type Department Care Team (Late st Contact Info) Description 05/25/2025 11:00 AM EDT Office Visit [facility] MEDICINE [address] [place] [address] documented as of this encounter Visit Diagnoses Not on filedocumented in this encounter Additional Health Concerns Assessment Noted Time PHQ-9 Depression Total Score: 0 02/27/20 23 3:09 PM EDT documented as of this encounter Care Teams Mailhouse Operator Relationship Specialty Start Date End Date Mely Vasquez MD [address] [place] [address] PCP - General Family Medicine 05/11/21 documented as of this encounter
--- OUTSIDE RECORDS SUMMARY | 2025-04-28 15:30 | XMS_ITS | Encounter Summary ---
Author Organization [employer] Address [address] [facility] 7t [place] [address] Care Team Providers Care Forklift Material Handler Name Role Phone Mely Vasquez MD Primary Care Provider [phone] Reason for Visit * Reason Onset Date Comments Med Refill 01/01/2024 Encounter Details Date Type Department Care Team ([facility] Contact Info) Description 01/01/2024 Telephone [facility] MEDICINE [address] [place], [place] [phone] Mely Vasquez MD [address] [place], [place] [phone] Med Refill Social History Tobacco Use Types [...] release tablet To be sent to: [facility]/pharmacy #[id number] [place] [address] - [address] [place] [address] documented in this encounter Plan of Treatment Upcoming Encounters Date Type Department Care Team (Late st Contact Info) Description 05/25/2025 11:00 AM EDT Office Visit [facility] MEDICINE [address] [place] [address] documented as of this encounter Visit Diagnoses Not on filedocumented in this encounter Additional Health Concerns Assessment Noted Time PHQ-9 Depression Total Score: 0 02/27/20 23 3:09 PM EDT documented as of this encounter Care Teams Forklift Material Handler Relationship Specialty Start Date End Date Mely Vasquez MD [address] [place] [address] PCP - General Family Medicine 05/11/21 documented as of this encounter
--- OUTSIDE RECORDS SUMMARY | 2025-04-28 15:30 | XMS_ITS | Encounter Summary ---
Author Organization [employer] Address [address] [facility] 7t [place] [address] Care Team Providers Care Production Welder Name Role Phone Mely Vasquez MD Primary Care Provider [phone] Reason for Visit * Reason Onset Date Comments Med Refill 04/22/2023 Encounter Details Date Type Department Care Team ([facility] Contact Info) Description 04/22/2023 Telephone [facility] MEDICINE 230 [place], [place] [phone] Mely Vasquez MD [address] [place], [place] [phone] Med Refill Social History Tobacco Use Types [...] Description 05/25/2025 11:00 AM EDT Office Visit [facility] MEDICINE [address] [place] [address] documented as of this encounter Visit Diagnoses Not on filedocumented in this encounter Additional Health Concerns Assessment Noted Time PHQ-9 Depression Total Score: 0 02/27/20 23 3:09 PM EDT documented as of this encounter Care Teams Production Welder Relationship Specialty Start Date End Date Mely Vasquez MD [address] [place] [address] PCP - General Family Medicine 05/11/21 documented as of this encounter
--- OUTSIDE RECORDS SUMMARY | 2025-04-28 15:30 | XMS_ITS | Clinical Summary ---
Author Organization [employer] [facility] ity Address [address] [place] [address] Care Team Providers Care Revenue Accountant Name Role Phone Unavailable Primary Care Provider [...] 5 season) 2025 Influenza Vaccine (#1) 2025 RSV Immunization Adult Patie nts (1 - 1-dose 75+ series) 12/21/2050 HIB Vaccines Aged Out No longer eligi [...]
--- OUTSIDE RECORDS SUMMARY | 2025-04-28 15:30 | XMS_ITS | Encounter Summary ---
Author Organization [employer] Address [address] [facility] 7t [place] [address] Care Team Providers Care Chief Drafter Name Role Phone Mely Vasquez MD Primary Care Provider [phone] Reason for Visit * Reason Onset Date Comments Med Refill 04/05/2025 Encounter Details Date Type Department Care Team ([facility] Contact Info) Description 04/05/2025 Telephone [facility] MEDICINE [address] [place], [place] [phone] Mely Vsaquez MD 230 [place], [place] [phone] Med Refill Social History Tobacco Use Types [...] from pt calling back requesting to schedule [facility] visit as well as to discuss Pain Management group. Please contact pt at [phone]. (Maltese Speaker) * Telephone Encounter - David Alan - 04/05/2025 8:19 AM EDT TC from pt requesting medication refill. Medications needing refill : oxyCODONE (Roxicodone) 15 MG immediate release tablet To be sent to: [facility]/pharmacy #[address] [place] [address] - [address] [place] [address] documented in this encounter Plan of Treatment Upcoming Encounters Date Type Department Care Team ([facility] st Contact Info) Description 05/25/2025 11:00 AM EDT Office Visit [facility] MEDICINE [address] [place] [address] documented as of this encounter Visit Diagnoses Not on filedocumented in this encounter Additional Health Concerns Assessment Noted Time PHQ-9 Depression Total Score: 9 12/30/19 25 1:30 PM EDT documented as of this encounter Care Teams Chief Drafter Relationship Specialty Start Date End Date Mely Vasquez MD 230 [place] [address] PCP - General Family Medicine 05/11/21 documented as of this encounter
--- OUTSIDE RECORDS SUMMARY | 2025-04-28 15:30 | XMS_ITS | Encounter Summary ---
Author Organization [employer] Address [address] [facility] 7t [place] [address] Care Team Providers Care Residential Team Leader Name Role Phone Mely Vasquez MD Primary Care Provider [phone] Reason for Visit * Reason Comments Med Refill Encounter Details Date Type Department Care Team ([facility] st Contact Info) Description 04/26/2024 Refill [facility] MEDICINE 230 [place], [place] [phone] Mely Vasquez MD [address] [place], [place] [phone] Chronic rhinosinusitis; Chronic sinusitis, unspecified location Social [...] Description 05/25/2025 11:00 AM EDT Office Visit [facility] MEDICINE [address] [place] [address] documented as of this encounter Visit Diagnoses Diagnosis Chronic rhinosinusitis Unspecified sinusitis (chronic) Chronic sinusitis, unspecified location documented in this encounter Additional Health Concerns Assessment Noted Time PHQ-9 Depression Total Score: 0 02/27/20 23 3:09 PM EDT documented as of this encounter Care Teams Residential Team Leader Relationship Specialty Start Date End Date Mely Vasquez MD [address] [place] [address] PCP - General Family Medicine 05/11/21 documented as of this encounter
--- OUTSIDE RECORDS SUMMARY | 2025-04-28 15:30 | XMS_ITS | Encounter Summary ---
Author Organization [employer] Address [address] [facility] 7t [place] [address] Care Team Providers Care Stone Gluer Name Role Phone Mely Vasquez MD Primary Care Provider [phone] Reason for Visit * Reason Onset Date Comments Med Refill 06/09/2024 Encounter Details Date Type Department Care Team ([facility] Contact Info) Description 06/09/2024 Telephone [facility] MEDICINE 230 [place], [place] [phone] Mely Vasquez MD [address] [place], [place] [phone] Med Refill Social History Tobacco Use Types [...] be sent to: [facility]/pharmacy #[id number] [place] [address] - [address] [place] [address] documented in this encounter Plan of Treatment Upcoming Encounters Date Type Department Care Team (Late st Contact Info) Description 05/25/2025 11:00 AM EDT Office Visit [facility] MEDICINE [address] [place] [address] documented as of this encounter Visit Diagnoses Not on filedocumented in this encounter Additional Health Concerns Assessment Noted Time PHQ-9 Depression Total Score: 0 02/27/20 23 3:09 PM EDT documented as of this encounter Care Teams Stone Gluer Relationship Specialty Start Date End Date Mely Vasquez MD [address] [place] [address] PCP - General Family Medicine 05/11/21 documented as of this encounter
--- OUTSIDE RECORDS SUMMARY | 2025-04-28 15:30 | XMS_ITS | Encounter Summary ---
Author Organization [employer] Address [address] [facility] 7t [place] [address] Care Team Providers Care Chainstitch Elastic Attacher Name Role Phone Mely Vasquez MD Primary Care Provider [phone] Reason for Visit * Reason Onset Date Comments Reschedule 12/04/2023 Encounter Details Date Type Department Care Team ([facility] Contact Info) Description 12/04/2023 Telephone [facility]INE 230 [place], [place] [phone] Mely Vasquez MD [address] [place], [place] [phone] Reschedule Social History Tobacco Use Types Packs/Day [...] AM EDT Tc from pt requesting r/s TRANSFER MACHINE OPERATOR appt documented in this encounter Plan of Treatment Upcoming Encounters Date Type Department Care Team (Late st Contact Info) Description 05/25/2025 11:00 AM EDT Office Visit [facility] [address] [place] [address] documented as of this encounter Visit Diagnoses Not on filedocumented in this encounter Additional Health Concerns Assessment Noted Time PHQ-9 Depression Total Score: 0 02/27/20 23 3:09 PM EDT documented as of this encounter Care Teams Chainstitch Elastic Attacher Relationship Specialty Start Date End Date Mely Vasquez MD [address] [place] [address] PCP - General Family Medicine 05/11/21 documented as of this encounter
--- OUTSIDE RECORDS SUMMARY | 2025-04-28 15:30 | XMS_ITS | Encounter Summary ---
Author Organization [employer] Address [address] [facility] 7 [place] [address] Care Team Providers Care Computer Technician Name Role Phone Mely Vasquez MD Primary Care Provider [phone] Reason for Visit * Reason Onset Date Comments ER Follow-up 12/10/2024 Nurse Triage 12/10/2024 Encounter Details Date Type Department Care Team ([facility] st Contact Info) Description 12/10/2024 Telephone [facility] MEDICINE [address] [place], [place] [phone] Mely Vasquez MD 230 [place] [address] ER Follow-up; Nurse Triage Social History Tobacco [...] ED visit on : Date: 12/03 Hospital: [facility] Seen for: Gastro-esophageal reflux disease, Constipation Symptomatic Yes *if yes message should go to Triage Patient advised will forward to team nurse for follow up Symptoms: Pain - Severe, Diarrhea Outcome: Talk to a nurse or provider within 15 minutes Reason: Blood in the diarrhea The caller accepted this outcome. [phone] documented in this encounter Plan of Treatment Upcoming Encounters Date Type Department Care Team (Late st Contact Info) Description 05/25/2025 11:00 AM EDT Office Visit [facility] MEDICINE [address] [place] [address] documented as of this encounter Visit Diagnoses Not on filedocumented in this encounter Additional Health Concerns Assessment Noted Time PHQ-9 Depression Total Score: 0 02/27/20 23 3:09 PM EDT documented as of this encounter Care Teams Computer Technician Relationship Specialty Start Date End Date Mely Vasquez MD 230 [place] [address] PCP - General Family Medicine 05/11/21 documented as of this encounter
--- OUTSIDE RECORDS SUMMARY | 2025-04-28 15:30 | XMS_ITS | Clinical Summary ---
Author Organization [employer] Address [address] [place] [address] 7t [place] [address] Care Team Providers Care Refinery Operator Visbreaking Name Role Phone Mely Vasquez MD Primary Care Provider [phone] Allergies Active Allergy Reactions Criticality Noted Date [...] (04/04/2025 11:55 AM EDT): - Following with [facility], last seen February 2025 - Continue tadalafil as prescribed Hypogonadism in male 04/04/2025 Assessment & Plan (04/04/2025 11:48 AM EDT): - Following with [facility] urologist, last seen in February 2025 - Continue testosterone as prescribed Colitis 04/04/2025 Assessment & Plan (04/04/2025 12:07 PM EDT): - Patient has already completed her antibiotic treatment (metronidazole and quinolone), and now is on another course of antibiotic (Augmentin). -Status post systemic steroid treatment - Continue metoclopramide as prescribed by GI - Continue following with [facility] At risk for nutrition deficiency 01/11/2025 [...] disease, postlaminectomy syndrome of lumbar region Last BODY RECALL INSTRUCTOR Agreement: 02/16/25 Tier: 2.5 (Manager Export Q3-4 mo) - eval by PCP December [...] 11:58 AM EDT): - seen by urologist, [facility] - previously on tamsulosin, but patient states he was prescribed tamsulosin for a short-term only. Assessment & Plan (12/29/2024 1:12 PM EDT): - seen by urologist, [facility] - patient states he was prescribed tamsulosin for a short-term only. Will check the treatment plan - tamsulosin will help his BP as well Assessment & Plan (08/03/2024 3:19 PM EST): - seen by urologist, [facility] - patient states he was prescribed tamsulosin for a short-term only. Will check the treatment plan - tamsulosin will help his BP as well Assessment & Plan (04/10/2024 6:39 AM EDT): - seen by urologist, [facility] - patient states he was prescribed tamsulosin [...] enucleation - evaluated by ocular specialist and clutch inspector - treatment will not be covered by [...] ENT - consider evaluation by allergy / youth services specialist for allergy test / immunotherapy. 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 Chavarria [...] preferred alprazolam - continue following with current [facility] provider Assessment & Plan (02/27/2023 6:34 AM EDT): -[facility] provider: [facility] -Psychiatrist: Dr. Chavarria -Clinician: Previously Elyssa Serrano, [...] higher dose - continue following with current [facility] provider Assessment & Plan (12/18/2022 2:48 PM EDT): -[facility] provider: [facility] -Psychiatrist: Dr. Chavarria -Clinician: Previously Elyssa Serrano, but pt does not have one currently -Evaluated by Nicko from [facility] -Pt has an upcoming appt with Dr. [...] (04/04/2025 12:08 PM EDT): - Followed by [facility], last seen in February 2025 - EGD in Feb 2024, small hiatal hernia and minimal gastritis - Continue Omeprazole 20mg BID - work on smoking cessation - avoid NSAIDs - H. Pylori test was negative in October 2023 Assessment & Plan (12/29/2024 1:12 PM EDT): - Followed by [facility], last seen in May 2024, upcoming follow up appointment in Jul 2024 - EGD in Feb 2024, small hiatal hernia and minimal gastritis - Continue Omeprazole 20mg BID - work on smoking cessation - avoid NSAIDs - H. Pylori test was negative in October 2023 Assessment & Plan (08/09/2024 10:38 AM EST): - Followed by [facility], last seen in May 2024, upcoming follow up appointment in Jul 2024 - EGD in Feb 2024, small hiatal hernia and minimal gastritis - Continue Omeprazole 20mg BID - work on smoking cessation - avoid NSAIDs - H. Pylori test was negative in October 2023 Assessment & Plan (04/07/2024 2:23 PM EDT): - Followed by [facility], last seen in November 2023 - Continue Omeprazole 20mg BID - work on smoking cessation - avoid NSAIDs - H. Pylori test was negative in October 2023 Assessment & Plan (12/24/2023 4:41 PM EDT): - Followed by [facility], last seen in November 2023 - Continue Omeprazole 20mg BID - work on smoking cessation - avoid NSAIDs - H. Pylori test was negative in October 2023 Assessment & Plan (08/25/2023 4:45 PM EST): - Followed by [facility] JOLLY, last seen in Jun 2023 - Continue Omeprazole 20mg BID - work on smoking cessation - avoid NSAIDs Assessment & Plan (12/18/2022 2:52 PM EDT): Seen by JOLLY, NOVEMBER 2022 -Rx Omeprazole 20mg BID -cont current tx plan -work on smoking cessation -avoid NSAIDs Blurry vision, right eye 12/18/2022 Assessment & Plan (08/25/2023 4:55 PM EST): - seen by clutch inspector in Mar 2023 - dry eye - [...] since 07/17/2017. - Nerve stimulator removed on 3/1/[address] Beasley ([facility]). It was placed 7-8 years ago in [...] post-laminectomy syndrome. -Continue judicious use of oxycodone -BODY RECALL INSTRUCTOR agreement is up to date - Follow up in 3-4 mo or sooner prn Assessment & Plan (02/27/2023 6:20 AM EDT): - on chronic opioid treatment with oxycodone 15 mg q8 hours since 07/17/2017. - Nerve stimulator removed on 09/26/[address] Beasley ([facility]). It was placed 7-8 years ago in [...] of arachnoiditis. -Continue judicious use of oxycodone -BODY RECALL INSTRUCTOR agreement is up to date - Follow up in 3 mo or sooner prn - recent exacerbation in pain; adding celecoxib for short-term Assessment & Plan (12/18/2022 2:40 PM EDT): -He's on chronic opioid of oxycodone 15 mg q8 hours since 07/17/2017. -Nerve stimulator removed on 09/26/[address] Beasley ([facility]). It was placed 7-8 years ago in [...] of arachnoiditis. -Continue judicious use of oxycodone -BODY RECALL INSTRUCTOR agreement review is up to date Vitamin [...] (12/24/2023 4:39 PM EDT): - following with [facility], last seen on 12/18/23 - plan to evaluate with EGD and abdominal US - continue omeprazole and sucralfate Colon cancer screening 12/19/202308/09 Acute upper respiratory infection 12/13/2022 02/26/2023 Encounters * This document contains information received from the source organization and may not represent a complete record from that organization. Date Type Department Care Team Description 04/20/2025 Telephone [facility] [address] [place] [address] Mely Vasquez MD Paperwork/Forms 04/05/2025 Refill [facility] PEDS [address] [place] [address] Liset Cage RN Lumbar disc disease 04/05/2025 Telephone [facility] [address] [place] [address] Liset Cage RN BODY RECALL INSTRUCTOR 04/05/2025 Telephone [facility] [address] [place] [address] Mely Vasquez MD Med Refill 03/30/2025 1:30 PM EDT Office Visit [facility] [address] [place] [address] Mely Vasquez MD Hypertension, unspecified type (Primary [...] DEPARTMENT Provider, Generic External Data 03/09/2025 Refill [facility] [address] [place] [address] Liset Cage RN Lumbar disc disease 03/09/2025 Telephone [facility] [address] [place] [address] Mely Vasquez MD Med Refill 02/16/2025 11:00 AM EDT Office Visit [facility] [address] [place] [address] Loree Mcclendon FNP Lumbar disc disease (Primary Dx); Long-term current use of opiate analgesic 02/16/2025 Travel 02/11/2025 Telephone [facility] [address] [place] [address] Mely Vasquez MD march02/11/2025 Refill [facility] [address] [place] [address] Mely Vasquez MD Lumbar disc disease 01/28/2025 Telephone [facility] [address] [place] [address] Mely Vasquez MD Durable Medical Equipment 01/26/2025 Telephone [facility] [address] [place] [address] Liset Cage RN 01/26/2025 Travel from Last 3 Months Immunizations Immunization [...] 05/25/2025 11:00 AM EDT Office Visit [facility] [address] [place] [address] Health Maintenance Due Date Last Done Comments [...] 02/16/2025 11:10 AM EDT Lumbar disc disease LIPID PANEL WITH REFLEX TO DIRECT LDL Routine 01/14/2025 1:55 PM EDT Hypertriglyceridemi a BITEWING - SINGLE RADIOGRAPHIC IMAGE Routine 09/13/2023 [...] PM EDT Narrative 04/12/2025 3:57 PM EDT [place] [address] CT Scan Report Signed Patient: Hosea Stoner MR#: [id number] : 1975 Acct:[id number] Age/Sex: 49 / M ADM Date: 04/12/25 Loc: HO.CT Attending Dr: Susanna ROBLES Ordering Physician: Susanna Sanchez Date of Service: 04/12/25 Procedure(s): CT abdomen pelvis w IV con Accession Number(s): [id number] cc: Susanna Sanchez; Mely Vasquez MD Report Number: [id number]: Total DLP = 214.00 mGy-cm Reason for [...] 04/12/25 1555 DD/ 1513 TD/TT: 04/12/25 1532 Wrapper Sizer: Procedure Note Donotuseinterpreter, Image - 04/12/[address] [address] [address] Scan Report Signed Patient: Hosea Stoner [facility]#: [id number] : 1975Acct:[id number] Age/Sex: 49 / MADM Date: 04/12/25 Loc: HO.CT Attending Dr: Susanna ROBLES Ordering Physician: Susanna Sanchez Date of Service: 04/12/25 Procedure(s): CT abdomen pelvis w IV con Accession Number(s): [id number] cc: Susanna Sanchez; Mely Vasquez MD Report Number: [id number]: Total DLP = 214.00 mGy-cm Reason for [...] 04/12/25 1555 DD/ 1513 TD/TT: 04/12/25 1532 Wrapper Sizer: us [facility] External Provider IMG CT PROCEDURES Final Result * NM Gastric Emptying Solid (04/08/2025 8:30 AM EDT) Anatomical Region Laterality Modality Body Nuclear Medicine 04/08/2025 8:30 AM EDT Narrative 04/08/2025 12:30 PM EDT [address] [address] Nuclear Medicine Report Signed Patient: Hosea Stoner MR#: [id number] : 1975 Acct:[id number] Age/Sex: 49 / M ADM Date: 04/08/25 Loc: FAIZA Attending Dr: Susanna ROBLES Ordering Physician: Susanna Sanchez Date of Service: 04/08/25 Procedure(s): NM gastric emptying study Accession Number(s): [id number] cc: Susanna Sanchez; Mely Vasquez MD Reason [...] 04/08/25 1227 DD/ 0830 TD/TT: 04/08/25 1205 Wrapper Sizer: Procedure Note Donotuseinterpreter, Image - 04/08/2025 [place] [address] Nuclear Medicine Report Signed Patient: Hosea Stoner [facility]#: [id number] : 1975Acct:[id number] Age/Sex: 49 / MADM Date: 04/08/25 Loc: FAIZA Attending Dr: Susanna ROBLES Ordering Physician: Susanna Sanchez Date of Service: 04/08/25 Procedure(s): NM gastric emptying study Accession Number(s): [id number] cc: Susanna Sanchez; Mely Vasquez MD Reason [...] hours 33% (normal 30%-60%) 3 hours 2% NM/MS gastric emptying study IMPRESSION: Normal 4-hour solid [...] 04/08/25 1227 DD/ 0830 TD/TT: 04/08/25 1205 Wrapper Sizer: [facility] External Provider IMG NM PROCEDURES Final Result * PSA, Total With Reflex to PSA, Free (03/23/2025 2:22 PM EDT) PSA,Total (Free>4and<10) 0.48 0.00 - 4.00 ng/mL [facility] Comment:A Free PSA was not p [...] are between 4.0 and 10.0 ng/mL.PSA methodology: Kemp Alinity i ChemiluminescentMicroparticle Immunoassay (CMIA) 03/23/2025 2:22 PM EDT 03/23/2025 2:22 PM EDT us Generic External Data Provider LAB BLOOD ORDERAB LES Final Result [facility] [address] [place] [phone] * Testosterone, Free (Dialysis) And Total, MS (03/23/2025 2:22 PM EDT) Testosterone, Total 626 250 - 1100 ng/dL [facility] Comment:For additional infor shanon, please refer tohttp://education.[employer]/faq/UiilcIwxzlkmcdxkyJCSHIWKPV713(This link is being provided for informational/educational purposes only.)This test was developed and its analytical performancecharacteristics have been determined by [facility] [place], [place]. It hasnot been cleared or approved by the U.S. Food and DrugAdministration. This assay has been validated pursuantto the CLIA regulations and is used for clinicalpurposes. Testosterone, Free 97.0 35.0 - 155.0 pg/mL [facility] Comment:This test was develo ped and its analytical performancecharacteristics have been determined by [facility] [place], [place]. It hasnot been cleared or approved by the U.S. Food and DrugAdministration. This assay has been validated pursuantto the CLIA regulations and is used for clinicalpurposes.THIS TEST WAS PERFORMED AT:[employer]/[id number] [place] [address]QPQZQZHMARYSOL PANTOJA MD,PHD 03/23/2025 2:22 PM EDT 03/23/2025 2:22 PM EDT us Generic External Data Provider LAB BLOOD ORDERAB LES Final Result [facility] [address] [place] [phone] * POCT CHARLY-14 Urine Drug Screen [...] - 02/16/2025 11:10 AM EDT UTOX cup Lot#[id number] Exp. 05/04/26 Internal Pass Control Loree Mcclendon CUSTOMS COMPLIANCE ANALYST POINT OF CARE TEST ENTER/EDIT ORDERABLES Final Result * (ABNORMAL) Lipid Panel with Reflex to Direct LDL (01/14/2025 1:55 PM EDT) Triglycerides 106 <150 mg/dL [facility] Comment:Desirable Triglyceri de: less than 150 mg/dLBorderline High Triglyceride 150-199 mg/dLHigh Triglyceride: 200-499 mg/dLVery High Triglyceride: greater than or equal to 5OO mg/dL Cholesterol 136 <200 mg/dL [facility] Comment:Desirable Cholestero l: less than 200 mg/dLBorderline High Cholesterol: 200-239 mg/dLHigh Cholesterol: greater than 239 mg/dL LDL Cholesterol Calculated 77 <100 mg/dL [facility] Comment:Desirable LDL: less than 100 mg/dLNear Optimal/Above Optimal LDL: 110- 129 mg/dLBorderline High LDL: 130-159 mg/dLHigh LDL: 160-189 mg/dLVery High LDL: greater than or equal to 190 mg/dL HDL Cholesterol 38(L) >40 mg/dL [facility] Comment:Desirable HDL: great er than 40 mg/dL Note: This HDL assay may give artificially low results in patients with liver disease. Blood 01/14/2025 1:55 PM EDT 01/14/2025 1:55 PM EDT Mely Vasquez MD LAB BLOOD ORDERABLES Final Resul t [facility] [address] [place] [phone] * Colonoscopy (10/09/2022) Pathologist [facility] Colonoscopy Normal Normal James Provider HEALTH MAINTENANCE Edited Result - Final * HIV AB/AG (04/27/2022 2:42 PM EDT) Pathologist [facility] HIV AB/AG Nonreactive Nonreactive [facility] Comment: HIV-1 p24 Ag [...] of detection of this assay. The Kemp Combiner HIV Ag/Ab Combo assay result and supplemental [...] Most Recently Relevant to Health Maintenance Insurance [facility] < [address] [facility] STANDARD DENT[place]ICAID STAND ADULT [facility] PPO Care Teams Refinery Operator Visbreaking Relationship Specialty Start Date End Date Mely Vasquez MD [address] [place] [id number] PCP - General Family Medicine 05/11/21
--- OUTSIDE RECORDS SUMMARY | 2025-04-28 15:30 | XMS_ITS | Encounter Summary ---
Author Organization [employer] Address [address] [facility] 7t [place] [address] Care Team Providers Care Bike Designer Name Role Phone Mely Vasquez MD Primary Care Provider [phone] Reason for Visit * Reason Onset Date Comments Med Refill 03/20/2024 Encounter Details Date Type Department Care Team ([facility] Contact Info) Description 03/20/2024 Telephone [facility] [address] [place], [place] [phone] Mely Vasquez MD [address] [place], [place] [phone] Med Refill Social History Tobacco Use Types [...] To be sent to: [facility]/pharmacy #[id number] [place] [address] - [address] [place] [address] documented in this encounter Plan of Treatment Upcoming Encounters Date Type Department Care Team (Late st Contact Info) Description 05/25/2025 11:00 AM EDT Office Visit [facility] [address] [place] [address] documented as of this encounter Visit Diagnoses Not on filedocumented in this encounter Additional Health Concerns Assessment Noted Time PHQ-9 Depression Total Score: 0 02/27/20 23 3:09 PM EDT documented as of this encounter Care Teams Bike Designer Relationship Specialty Start Date End Date Mely Vasquez MD [address] [place] [address] PCP - General Family Medicine 05/11/21 documented as of this encounter
--- OUTSIDE RECORDS SUMMARY | 2025-04-28 15:30 | XMS_ITS | Encounter Summary ---
Author Organization [employer] Address [address] [place] [address] 7 [place] [address] Care Team Providers Care Fermenting Cellars Supervisor Name Role Phone Mely Vasquez MD Primary Care Provider [phone] Reason for Referral * Consultation (Routine) - Closed Specialty Diagnoses / Procedures Referred By Contac t Referred To Contact Urology Diagnoses Benign prostatic hyperplasia, unspecified whether lower urinary tract symptoms present Mely Vasquez MD [address] [place] [address] Phone: tel: fax: [facility] Referral ID Status Reason Start Date Expiration Date V isits Requested Visits Authorized [id number] Closed Specialty Services Required 11/22/2023 11/21/2024 1 1 Encounter Details Date Type Department Care Team (Late st Contact Info) Description 11/22/2023 Orders Only [facility] [address] [place] [address] [phone] Mely Vasquez MD [address] [place] [address] [phone] Benign prostatic hyperplasia, unspecified whether lower urinary [...] Description 05/25/2025 11:00 AM EDT Office Visit [facility] [address] [place] [phone] Scheduled Referrals Name Type Priority Associated Diagnoses [...] Testosterone, Total 522 250 - 1100 ng/dL [facility] Comment:For additional infor shanon, please refer tohttp://education.[employer]/faq/MbvbsFudfqwkcbpkqBNFEGZEMC277(This link is being provided for informational/educational purposes only.)This test was developed and its analytical performancecharacteristics have been determined by [employer] [place], [place]. It hasnot been cleared or approved by the U.S. Food and DrugAdministration. This assay has been validated pursuantto the CLIA regulations and is used for clinicalpurposes.THIS TEST WAS PERFORMED AT:[employer] [place] [address]TAQEUHYMARYSOL PANTOJA MD,PHD Blood Venous blood specimen / Unknown 12/02/2023 1:02 PM EDT 12/02/2023 4:10 PM EDT Mely Vasquez MD LAB BLOOD ORDERABLES Final Resul t Performing Organization Address City/[facility]/ZIP Co de Phone Number [facility] [address] [place] [address] [phone] * PSA,Total (12/02/2023 1:02 PM EDT) Prostate Specific Antigen 0.50 <0.05 - 4.0 ng/mL [facility] Comment:PSA methodology: Abb marielle Aliaj i ChemiluminescentMicroparticle Immunoassay (CMIA) Blood Venous blood specimen / Unknown 12/02/2023 1:02 PM EDT 12/02/2023 4:10 PM EDT Mely Vasquez MD LAB BLOOD ORDERABLES Final Resul t [facility] [address] [place] [address] [phone] documented in this encounter Visit Diagnoses Diagnosis Benign prostatic hyperplasia, unspecified whether lower urinary tract symptoms present- Primary documented in this encounter Additional Health Concerns Assessment Noted Time PHQ-9 Depression Total Score: 0 02/27/20 23 3:09 PM EDT documented as of this encounter Care Teams Fermenting Cellars Supervisor Relationship Specialty Start Date End Date Mely Vasquez MD [address] [place] [phone] PCP - General Family Medicine 05/11/21 documented as of this encounter
--- OUTSIDE RECORDS SUMMARY | 2025-04-28 15:30 | XMS_ITS | Encounter Summary ---
Author Organization [employer] Address [address] [facility] 7t [place] [address] Care Team Providers Care Supervisor Grower Name Role Phone Mely Vasquez MD Primary Care Provider [phone] Reason for Visit * Reason Onset Date Comments Med Refill 06/26/2023 Encounter Details Date Type Department Care Team ([facility] st Contact Info) Description 06/26/2023 Refill [facility] MED[facility]INE [address] [place], [place] [phone] Mely Vasquez MD [address] [place], [place] [phone] Lumbar disc disease Social History Tobacco Use [...] oxyCODONE (Roxicodone) 15 MG immediate release tablet [facility]/pharmacy #[id number] [place] [address] - [address] [place] [address] documented in this encounter Plan of Treatment Upcoming Encounters Date Type Department Care Team (Late st Contact Info) Description 05/25/2025 11:00 AM EDT Office Visit [facility] [address] [place] [address] documented as of this encounter Visit Diagnoses Diagnosis Lumbar disc disease Other and unspecified disc disorder of lumbar region documented in this encounter Additional Health Concerns Assessment Noted Time PHQ-9 Depression Total Score: 0 02/27/20 23 3:09 PM EDT documented as of this encounter Care Teams Supervisor Grower Relationship Specialty Start Date End Date Mely Vasquez MD [address] [place] [address] PCP - General Family Medicine 05/11/21 documented as of this encounter
--- OUTSIDE RECORDS SUMMARY | 2025-04-28 15:30 | XMS_ITS | Encounter Summary ---
Author Organization [email or web address] Address [address] [facility] 7t [place] [address] Care Team Providers Care Animal Shelter Manager Name Role Phone Mely Vasquez MD Primary Care Provider [phone] Reason for Visit * Reason Onset Date Comments Med Refill 02/24/2024 Encounter Details Date Type Department Care Team ([facility] Contact Info) Description 02/24/2024 Telephone [facility] MEDICINE [address] [place], [place] [phone] Mely Vasquez MD [address] [place], [place] [phone] Med Refill Social History Tobacco Use Types [...] to: [facility]/pharmacy #[id number] [place] [address] documented in this encounter Plan of Treatment Upcoming Encounters Date Type Department Care Team (Late st Contact Info) Description 05/25/2025 11:00 AM EDT Office Visit [facility] [address] [place] [address] documented as of this encounter Visit Diagnoses Not on filedocumented in this encounter Additional Health Concerns Assessment Noted Time PHQ-9 Depression Total Score: 0 02/27/20 23 3:09 PM EDT documented as of this encounter Care Teams Animal Shelter Manager Relationship Specialty Start Date End Date Mely Vasquez MD [address] [place] [address] PCP - General Family Medicine 10/14/21 documented as of this encounter
--- OUTSIDE RECORDS SUMMARY | 2025-04-28 15:30 | XMS_ITS | Encounter Summary ---
Author Organization [employer] Address [address] [facility] 7t [place] [address] Care Team Providers Care Banbury Mixer Operator Name Role Phone Mely Vasquez MD Primary Care Provider [phone] Reason for Visit * Reason Onset Date Comments Durable Medical Equipment 03/23/2024 Encounter Details Date Type Department Care Team ([facility] Contact Info) Description 03/23/2024 Telephone [facility] [address] [place], [place] [phone] Mely Vasquez MD [address] [place], [place] [phone] Durable Medical Equipment Social History Tobacco Use [...] Description 05/25/2025 11:00 AM EDT Office Visit [facility] [address] [place] [address] documented as of this encounter Visit Diagnoses Not on filedocumented in this encounter Additional Health Concerns Assessment Noted Time PHQ-9 Depression Total Score: 0 02/27/20 23 3:09 PM EDT documented as of this encounter Care Teams Banbury Mixer Operator Relationship Specialty Start Date End Date Mely Vasquez MD [address] [place] [address] PCP - General Family Medicine 05/11/21 documented as of this encounter
--- OUTSIDE RECORDS SUMMARY | 2025-04-28 15:30 | XMS_ITS | Encounter Summary ---
Author Organization [employer] Address [address] [facility] 7t [place] [address] Care Team Providers Care Speech And Language Assistant Name Role Phone Mely Vasquez MD Primary Care Provider [phone] Reason for Visit * Reason Onset Date Comments Med Refill 10/21/2024 Encounter Details Date Type Department Care Team ([facility] Contact Info) Description 10/21/2024 Telephone [facility] [address] [place], [place] [phone] Mely Vasquez MD [address] [place], [place] [phone] Med Refill Social History Tobacco Use Types [...] release tablet To be sent to: [facility]/pharmacy #[id number] [place] [address] - [address] [place] [address] documented in this encounter Plan of Treatment Upcoming Encounters Date Type Department Care Team (Late st Contact Info) Description 05/25/2025 11:00 AM EDT Office Visit [facility] [address] [place] [address] documented as of this encounter Visit Diagnoses Not on filedocumented in this encounter Additional Health Concerns Assessment Noted Time PHQ-9 Depression Total Score: 0 02/27/20 23 3:09 PM EDT documented as of this encounter Care Teams Speech And Language Assistant Relationship Specialty Start Date End Date Mely Vasquez MD [address] [place] [address] PCP - General Family Medicine 05/11/21 documented as of this encounter
--- OUTSIDE RECORDS SUMMARY | 2025-04-28 15:30 | XMS_ITS | Encounter Summary ---
Author Organization [employer] Address [address] [facility] 7t [place] [address] Care Team Providers Care Hospice Social Worker Name Role Phone Mely Vasquez MD Primary Care Provider [phone] Reason for Visit * Reason Onset Date Comments Med Refill 05/21/2023 Encounter Details Date Type Department Care Team ([facility] Contact Info) Description 05/21/2023 Telephone [facility] MEDICINE [address] [place], [place] [phone] Mely Vasquez MD [address] [place], [place] [phone] Med Refill Social History Tobacco Use Types [...] immediate release tablet, pt stated went to [facility] and the store has 40, pt is requesting order of 44 to be send [facility]. documented in this encounter Plan of Treatment Upcoming Encounters Date Type Department Care Team (Late st Contact Info) Description 05/25/2025 11:00 AM EDT Office Visit [facility] [address] [place] [address] documented as of this encounter Visit Diagnoses Not on filedocumented in this encounter Additional Health Concerns Assessment Noted Time PHQ-9 Depression Total Score: 0 02/27/20 23 3:09 PM EDT documented as of this encounter Care Teams Hospice Social Worker Relationship Specialty Start Date End Date Mely Vasquez MD [address] [place] [address] PCP - General Family Medicine 05/11/21 documented as of this encounter
--- OUTSIDE RECORDS SUMMARY | 2025-04-28 15:30 | XMS_ITS | Encounter Summary ---
Author Organization [employer] Address [address] [place] [address] 7 [place] [address] Care Team Providers Care Physicist Nuclear Name Role Phone Mely Vasquez MD Primary Care Provider [phone] Reason for Visit * Reason Onset Date Comments Appointment Request 01/31/2023 Encounter Details Date Type Department Care Team ([facility] Contact Info) Description 01/31/2023 Telephone [facility] MEDICINE [address] [place] [address] Mely Vasquez MD [address] [place] [address] Appointment Request Social History Tobacco Use Types [...] from pt requesting to r/s appt from 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 Please contact pt at [phone] documented in this encounter Plan of Treatment Upcoming Encounters Date Type Department Care Team ([facility] Contact Info) Description 05/25/2025 11:00 AM EDT Office Visit [facility] MEDICINE [address] [place] [address] documented as of this encounter Visit Diagnoses Not on filedocumented in this encounter Care Teams Physicist Nuclear Relationship Specialty Start Date End Date Mely Vasquez MD [address] [place] [address] PCP - General Family Medicine 05/11/21 documented as of this encounter
== END 2025-04-28 18:56 ==
LOC: HO.HGI 14:17
PROVIDERS: PCP Family Medicine; Visit Provider Internal Medicine
DX: K62.5 Hemorrhage of anus and rectum (principal); R10.9 Unspecified abdominal pain; K51.50 Left sided colitis without complications
CPT/HCPCS: 99214

== ENCOUNTER → 2025-04-28 14:16 | Outpatient (BNVA) | payer OTHER, SELFPAY | PROVIDERS: PCP Family Medicine; Visit Provider Internal Medicine | DX: K62.5 Hemorrhage of anus and rectum (principal); R10.9 Unspecified abdominal pain; K51.50 Left sided colitis without complications | CPT/HCPCS: 99212 ==

== ENCOUNTER 2025-06-21 16:08 | Outpatient (AMB) | payer OTHER, SELFPAY ==
--- NOTE | 2025-06-21 16:09 | A.OFFVIS_ITS ---
Intake Visit Reasons: 3m/Med/ Labs Intake Note: Patient is present today via telehealth for 3m/med review/labs * 03/23 Total PSA:0.48 * 03/23 Total Testo:626/Free Testo:97.0 Urology Medication:None Antibiotic Allergy:NONE Blood Thinner:NONE Residential Subcontractor Required: No Allergies amitriptyline Allergy (Severe, Verified 07/20/25 15:02) Confusion morphine (MORPHINE) Allergy (Severe, Verified 07/20/25 15:02) CONSTIPATION, stomach upset ibuprofen (From MOTRIN) Adverse Reaction (Intermediate, Verified 07/20/25 15:02) ABD PAIN cyclobenzaprine (From FLEXERIL) Adverse Reaction (Mild, Verified 07/20/25 15:02) DRY MOUTH influenza H1N1 Allergy (Intermediate, Uncoded 07/20/25 15:02) Weakness HPI Comments Details: 06/21/25--Alphonso is being managed for low testosterone and overactive bladder symptoms he is on testosterone replacement I have reviewed labs from 03/23/2025 PSA 0.48 total testosterone 626 free testosterone 97. History of Present Illness The patient is a 49-year-old individual presenting with low testosterone and overactive bladder symptoms. The patient has been managed for low testosterone and is currently on testosterone replacement therapy. In February, the patient's testosterone levels were normal with a total testosterone of 626 and free testosterone of 97. However, the patient reported that insurance stopped covering the testosterone pump around January, leading to a lapse in medication. The patient is also experiencing overactive bladder symptoms and is on tadalafil 5 mg daily. The patient has a history of an enlarged prostate, but recent PSA levels were normal at 0.48, indicating no significant concern at this time. Results - Labs: Total testosterone 626, Free testosterone 97, PSA 0.48 Plan 1. Low Testosterone - Continue testosterone replacement therapy for another two months and re- evaluate testosterone levels. 2. Overactive Bladder - Continue tadalafil 5 mg daily 3. Enlarged Prostate - Monitor PSA levels regularly to ensure they remain within normal range. 03/19/25--states that testosterone was not refilled because insurance required a prior authorization Complains of difficulty with erections improved with testosterone replacement but still not adequate erections for intercourse When he has the VESIcare he had more difficulty in emptying the bladder so he stopped the medication now he feels that bladder symptoms are not bothersome. Will check repeat testosterone levels and PSA Start Cialis 5 mg daily and re-evaluate for testosterone replacement after review of blood work. 12/16/24--Hosea is followed for low testosterone, LUTS of frequency and urgency. FU renal US-10/27/24 - Results discussed - Kidneys WNL, negative for renal calculi. Trial Vesicare for OAB symptoms. 08/31/24--telehealth video follow-up low testosterone, I have reviewed testosterone levels have improved total testosterone is greater than 500. The patient states he still has problems with erections. He also is complaining of urinary frequency and urgency. He denies dysuria. I will have him follow-up to check urine and will also evaluate kidneys and bladder ultrasound prior. Consider addition of Cialis daily 5 mg in addition to testosterone replacement. 04/10/24--Telehealth fu, reviewed labs, PSA - 03/20/24- 0.58 ng/mL. Total and Free testosterone is low, 385 and 63.5. Discussed testosterone replacement therapy. 01/09/24--Hosea is here for evaluation for enlarged prostate. He complains of weak urinary stream and nocturia. He also has complaints of erectile dysfunction, not able to maintain an erection. Discussed trial of tamsulosin. Will check hormone levels, including free and total testosterone and PSA screening. [facility] Medical History (Updated 08/03/25 @ 16:56 by MARGARET Hill) Left sided colitis Colitis Diverticulitis Inguinal hernia Screening PSA (prostate specific antigen) Low testosterone Abdominal pain Encounter for monitoring testosterone replacement therapy Upper abdominal pain Herpes simplex Rib pain on left side GERD (gastroesophageal reflux disease) Left inguinal hernia (04/26/24) Left groin hernia Constipation Depression with anxiety Asthma Colon cancer screening Pelvis, multiple open fractures with disruption of pelvic [place] Failed spinal cord stimulator Surgical History Status post inguinal hernia repair using synthetic patch Postop check History of esophagogastroduodenoscopy (EGD) H/O colonoscopy History of arthroscopy of right knee History of back surgery H/O pelvic surgery H/O enucleation of left eyeball Social History Are you a primary cardiac care unit nurse to a significant other at home: No Do you presently have visiting nurse or other home services: No Alcohol intake: never Comment: some gas pain/cramping intermittently. Patient Tobacco Use Status: Current everyday Tobacco user Tobacco use type: Cigarette Cigarette Packs Per Day: 0.5 Cigarettes Per Day: 10.0 Second Hand Smoke Exposure: No Review of Systems Const All systems reviewed & are unremarkable except as noted in HPI and below Reports no additional complaints Eyes Reports no additional complaints ENT Reports no additional complaints Card Reports no additional complaints Resp Reports no additional complaints GI Reports no additional complaints Reports as per HPI Musc Reports no additional complaints Skin/Breast Reports system reviewed and no additional complaints, except as documented Neuro Reports no additional complaints Psych Reports no additional complaints Endo Reports no additional complaints Lenin/Lymph Reports no additional complaints Aller/Immun Reports no additional complaints Telehealth Telehealth Telehealth Platform: [employer] Location of provider rendering services: practice address Location of patient: address on file Patient Identification confirmed using: Name, : Yes Telehealth method: video Patient verbally consented to treatment: Yes Patient verbally consented to billing insurance company: Yes Patient informed of any privacy concerns related to visit: Yes Results Reviewed Results Reviewed: Date of Service: 12/02/24 CLINICAL HISTORY: left sided abdominal pain, rectal bleeding CT abdomen and pelvis with contrast Comparison: CT of the abdomen and pelvis from 11/21/2023 Findings: Mild bibasilar atelectasis/pneumonitis with respiratory motion artifacts. Mild fat deposition of the liver. No significant change in small cystic lesions of the liver and imaged kidneys accounting for differences in artifacts. The adrenal glands are normal. The spleen is nonenlarged. Pancreas and gallbladder are unremarkable accounting for artifacts. Calcified and noncalcified plaque including the imaged aorta and its branches. Small mesenteric lymph nodes are likely reactive. No small bowel obstruction. Moderate to severe stool burden present, including the cecum. The appendix is not definitively seen. Wall thickening of the large intestine concerning for colitis, particularly involving the descending colon in the sigmoid colon given adjacent fluid and stranding. Soft tissue of the left inguinal ring is nonspecific and may reflect left testicle. Prostate gland measures 4.5 cm transverse. New moderate wall thickening of the urinary bladder is nonspecific and may reflect cystitis. No significant change in posterior instrumentation of the L5-S1. No hardware loosening by CT. Adjacent segment change including facet arthropathy. Additional facet arthropathy noted. IMPRESSION: 1. Wall thickening of the large intestine concerning for colitis, including descending colon and sigmoid colon. 2. Moderate wall thickening of the urinary bladder. Date of Service: 10/27/24 EXAMINATION: US RETROPERITONEUM HISTORY: R35.0 - Frequency of micturition TECHNIQUE: Real-time grayscale ultrasound imaging of the kidneys was performed and images were reviewed. COMPARISON: Correlation is made with an abdominal ultrasound dated 01/09/2024. FINDINGS: Right kidney: The right kidney measures 9.6 x 5.1 x 6.0 cm. Renal parenchymal echotexture and thickness are normal. There are no masses. There is a probable small extrarenal pelvis. There is no hydronephrosis or renal calculi. Left Kidney: The left kidney measures 9.2 x 5.1 x 4.5 cm. Renal parenchymal echotexture and thickness are normal. There are no masses. There is no hydronephrosis or renal calculi. The urinary bladder is unremarkable. Bilateral ureteral jets are identified. Before voiding, the urinary bladder measured 12.5 x 8.7 x 9.2 cm, for an estimated volume of 522 mL. After voiding, the urinary bladder measured 4.7 x 3.9 x 4.6 cm, for an estimated volume of 44 mL. The prostate measures 3.2 x 2.3 x 3.9 cm. IMPRESSION: Unremarkable renal ultrasound. Post void bladder residual of 44 mL. Date of Service: 11/21/23 EXAMINATION: CT ABDOMEN AND PELVIS WITH CONTRAST CLINICAL INFORMATION: Severe abdominal pain and tenderness COMPARISON: None available. TECHNIQUE: Multidetector volumetric images were obtained from the superior aspect of the liver through the pubic symphysis following administration 100 mL of Omnipaque 350 intravenous contrast. Sagittal and coronal reformatted images were obtained on the technologist's workstation. Oral contrast: No This CT examination was performed using dose optimization techniques as appropriate, variously including the following: *Automated exposure control *Adjustment of mA and/or kV according to patient size (this includes techniques or standardized protocols for targeted exams where dose is matched to indication/reason for exam; i.e. extremities or head) *Use of iterative reconstruction technique DLP: 355 mGy-cm FINDINGS: LUNG BASES: The visualized lung bases are unremarkable. LIVER, GALLBLADDER, AND BILIARY TREE: The liver is normal in size, shape, and attenuation. No focal hepatic lesion or biliary ductal dilatation is present. The gallbladder has a serpiginous phrygian cap but is otherwise unremarkable with no evidence of radiopaque gallstones, gallbladder wall thickening, or obvious pericholecystic inflammatory changes. PANCREAS: Unremarkable. SPLEEN: Unremarkable. ADRENAL GLANDS: Unremarkable. KIDNEYS AND URETERS: The kidneys are normal in size, shape, and attenuation. No hydronephrosis, hydroureter, or calculi seen. No perinephric stranding. BLADDER: Unremarkable. GASTROINTESTINAL TRACT: The small and large bowel are unremarkable. The appendix is unremarkable. ABDOMINAL WALL: Bilateral small inguinal hernias are seen containing fat, left greater than right. LYMPH NODES: No retroperitoneal lymphadenopathy seen. VASCULAR: Calcific and noncalcific plaque present in the infrarenal aorta without aneurysm or dissection. PELVIC VISCERA: There is moderate BPH. Seminal vesicles appear normal. OSSEOUS STRUCTURES: Unremarkable. Posterior fusion present at L5-S1. IMPRESSION: 1. A cause for the patient's severe abdominal pain and tenderness has not been found. 2. Incidental note made of BPH and bilateral inguinal hernias containing only fat. Assessment & Plan Assessment & Plan (1) Low testosterone: Code(s): R79.89 - Other specified abnormal findings of blood chemistry Category: Medical (2) Erectile dysfunction: Code(s): N52.9 - Male erectile dysfunction, unspecified Category: Medical (3) Urinary frequency: Code(s): R35.0 - Frequency of micturition Category: Medical Plan Plan 1. Low Testosterone - Continue testosterone replacement therapy for another two months and re- evaluate testosterone levels. 2. Overactive Bladder - Continue tadalafil 5 mg daily 3. Enlarged Prostate - Monitor PSA levels regularly to ensure they remain within normal range. Patient Instructions: The patient had an opportunity to ask questions regarding treatment plan. The patient expressed understanding and agreement with the above treatment plan. The patient is aware they should contact our office by phone for worsening of their current condition or the appearance of new symptoms. Compliance is encouraged with any medications and followup testing that is ordered. It is a privilege to be allowed the opportunity to participate in the urologic care of your patient. If you have any questions or concerns regarding treatment for the above conditions please do not hesitate to contact me. The office telephone contact is [phone]. This note is constructed in part using voice recognition software. While every effort has been made to ensure accuracy subassembly assembler errors may have been included. Yours sincerely, Rita Edwards MD Scribe Plan - Not visible on output: Patient was informed and verbally consented to the use of an ambient scribe for clinic note documentation during this visit. Coding Level of Care Code Tele Est Pt Level 4 (01888) Diagnoses Low testosterone R79.89 Erectile dysfunction N52.9 Urinary frequency R35.0
--- OUTSIDE RECORDS SUMMARY | 2025-06-21 20:22 | XMS_ITS | Encounter Summary ---
Author Organization [employer] Address [address] [facility] 7t [place] [address] Care Team Providers Care Tankman Name Role Phone Mely Vasquez MD Primary Care Provider [phone] Reason for Visit * Reason Onset Date Comments Med Refill 01/01/2024 Encounter Details Date Type Department Care Team ([facility] Contact Info) Description 01/01/2024 Telephone [facility] MED[facility]INE [address] [place], [place] [phone] Mely Vasquez MD [address] [place], [place] [phone] Med Refill Social History Tobacco Use Types [...] tablet To be sent to: [facility]/pharmacy #[id number] [place], [place] - [address] [place] [address] documented in this encounter Plan of Treatment Upcoming Encounters Date Type Department Care Team (Late st Contact Info) Description 07/26/2025 1:45 PM EST Office Visit [facility] [address] [place] [address] Mely Vasquez MD [address] [place] [address] documented as of this encounter Visit Diagnoses Not on filedocumented in this encounter Additional Health Concerns Assessment Noted Time PHQ-9 Depression Total Score: 0 02/27/20 23 3:09 PM EDT documented as of this encounter Care Teams Tankman Relationship Specialty Start Date End Date Mely Vasquez MD [address] [place] [address] PCP - General Family Medicine 05/11/21 documented as of this encounter
--- OUTSIDE RECORDS SUMMARY | 2025-06-21 20:22 | XMS_ITS | Encounter Summary ---
Author Organization [employer] Address [address] [facility] 7t [place] [address] Care Team Providers Care Technician Semiconductor Development Name Role Phone Mely Vasquez MD Primary Care Provider [phone] Reason for Visit * Reason Onset Date Comments Med Refill 02/24/2024 Encounter Details Date Type Department Care Team ([facility] Contact Info) Description 02/24/2024 Telephone [facility] MEDICINE [address] [place], [place] [phone] Mely Vasquez MD [address] [place], [place] [phone] Med Refill Social History Tobacco Use Types [...] immediate release tablet To be sent to: [facility]/pharmacy #[address] [place] [address] documented in this encounter Plan of Treatment Upcoming Encounters Date Type Department Care Team (Late st Contact Info) Description 07/26/2025 1:45 PM EST Office Visit [facility] MEDICINE [address] [place] [address] Mely Vasquez MD [address] [place] [address] documented as of this encounter Visit Diagnoses Not on filedocumented in this encounter Additional Health Concerns Assessment Noted Time PHQ-9 Depression Total Score: 0 02/27/20 23 3:09 PM EDT documented as of this encounter Care Teams Technician Semiconductor Development Relationship Specialty Start Date End Date Mely Vasquez MD [address] [place] [address] PCP - General Family Medicine 05/11/21 documented as of this encounter
--- OUTSIDE RECORDS SUMMARY | 2025-06-21 20:22 | XMS_ITS | Encounter Summary ---
Author Organization [employer] Address [address] [place] [address] 7 [place] [address] Care Team Providers Care Woodworking Machinist Name Role Phone Mely Vasquez MD Primary Care Provider [phone] Reason for Visit * Reason Onset Date Comments Appointment Request 01/31/2023 Encounter Details Date Type Department Care Team ([facility] Contact Info) Description 01/31/2023 Telephone [facility] MEDICINE [address] [place] [address] Mely Vasquez MD [address] [place] [address] Appointment Request Social History Tobacco Use Types [...] from pt requesting to r/s appt from 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 Please contact pt at [phone] documented in this encounter Plan of Treatment Upcoming Encounters Date Type Department Care Team ([facility] Contact Info) Description 07/26/2025 1:45 PM EST Office Visit [facility] MEDICINE [address] [place] [address] Mely Vasquez MD [address] [place] [address] documented as of this encounter Visit Diagnoses Not on filedocumented in this encounter Care Teams Woodworking Machinist Relationship Specialty Start Date End Date [place] [address] PCP - General Family Medicine 05/11/21 documented as of this encounter
--- OUTSIDE RECORDS SUMMARY | 2025-06-21 20:22 | XMS_ITS | Encounter Summary ---
Author Organization [employer] Address 75 [facility] 7t [place] [address] Care Team Providers Care Environmental Resource Specialist Name Role Phone Mely Vasquez MD Primary Care Provider [phone] Reason for Visit * Reason Onset Date Comments Med Refill 06/09/2024 Encounter Details Date Type Department Care Team ([facility] Contact Info) Description 06/09/2024 Telephone [facility] MEDICINE 230 [place], [place] [phone] Mely Vasquez MD 230 [place], [place] [phone] Med Refill Social History Tobacco Use Types [...] To be sent to: [facility]/pharmacy #[id number] [place] [address] - [address] [place] [address] documented in this encounter Plan of Treatment Upcoming Encounters Date Type Department Care Team (Late st Contact Info) Description 07/26/2025 1:45 PM EST Office Visit [facility] MEDICINE [address] [place] [address] Mely Vasquez MD 230 [place] [address] documented as of this encounter Visit Diagnoses Not on filedocumented in this encounter Additional Health Concerns Assessment Noted Time PHQ-9 Depression Total Score: 0 02/27/20 23 3:09 PM EDT documented as of this encounter Care Teams Environmental Resource Specialist Relationship Specialty Start Date End Date Mely Vasquez MD [address] [place] [address] [phone] PCP - General Family Medicine 05/11/21 documented as of this encounter
--- OUTSIDE RECORDS SUMMARY | 2025-06-21 20:22 | XMS_ITS | Encounter Summary ---
Author Organization [employer] Address 75 [facility] 7t [place] [address] Care Team Providers Care Application Penetration Tester Name Role Phone Mely Vasquez MD Primary Care Provider [phone] Reason for Visit * Reason Onset Date Comments Error (VOID this visit) 06/21/2025 Encounter Details Date Type Department Care Team ([facility] Contact Info) Description 06/21/2025 Telephone [facility] MEDICINE 230 [place] [address] Mely Vasquez MD 230 [place], [place] [phone] Error (VOID this visit) Social History Tobacco Use Types Packs/Day Years [...] Description 07/26/2025 1:45 PM EST Office Visit [facility] MEDICINE [address] [place] [address] Mely Vasquez MD [address] [place] [address] documented as of this encounter Visit Diagnoses Not on filedocumented in this encounter Additional Health Concerns Assessment Noted Time PHQ-9 Depression Total Score: 9 12/30/19 25 1:30 PM EDT documented as of this encounter Care Teams Application Penetration Tester Relationship Specialty Start Date End Date Mely Vasquez MD [address] [place] [address] PCP - General Family Medicine 05/11/21 documented as of this encounter
--- OUTSIDE RECORDS SUMMARY | 2025-06-21 20:22 | XMS_ITS | Encounter Summary ---
Author Organization [employer] Address 75 [facility] 7t [place] [address] Care Team Providers Care Rn Cardiology Name Role Phone Mely Vasquez MD Primary Care Provider [phone] Reason for Visit * Reason Onset Date Comments Med Refill 05/03/2025 Encounter Details Date Type Department Care Team ([facility] st Contact Info) Description 05/03/2025 Refill [facility] [address] [place], [place] [phone] Mely Vasquez MD 230 [place] [address] Lumbar disc disease Social History Tobacco Use [...] Description 07/26/2025 1:45 PM EST Office Visit [facility] MEDICINE [address] [place] [address] Mely Vasquez MD [address] [place] [address] documented as of this encounter Visit Diagnoses Diagnosis Lumbar disc disease Other and unspecified disc disorder of lumbar region documented in this encounter Additional Health Concerns Assessment Noted Time PHQ-9 Depression Total Score: 9 12/30/19 25 1:30 PM EDT documented as of this encounter Care Teams Rn Cardiology Relationship Specialty Start Date End Date Mely Vasquez MD [address] [place] [address] PCP - General Family Medicine 05/11/21 documented as of this encounter
--- OUTSIDE RECORDS SUMMARY | 2025-06-21 20:22 | XMS_ITS | Encounter Summary ---
Author Organization [employer] Address 75 [facility] 7t [place] [address] Care Team Providers Care Qc Manager Name Role Phone Mely Vasquez MD Primary Care Provider Reason for Visit * Reason Onset Date Comments Med Refill 04/05/2025 Encounter Details Date Type Department Care Team ([facility] Contact Info) Description 04/05/2025 Telephone [facility] MEDICINE 230 [place], [place] [phone] Mely Vasquez MD 230 [place], [place] [phone] Med Refill Social History Tobacco Use Types [...] from pt calling back requesting to schedule PRINCIPAL QUALITY ENGINEER visit as well as to discuss Pain Management group. Please contact pt at [phone]. (Yoruba Speaker) * Telephone Encounter - David Alan - 04/05/2025 8:19 AM EDT TC from pt requesting medication refill. Medications needing refill : oxyCODONE (Roxicodone) 15 MG immediate release tablet To be sent to: [facility]/pharmacy #[address] [place] [address] documented in this encounter Plan of Treatment Upcoming Encounters Date Type Department Care Team (Late st Contact Info) Description 07/26/2025 1:45 PM EST Office Visit [facility] MEDICINE 230 [place] [address] Mely Vasquez MD [address] [place], [place] [phone] documented as of this encounter Visit Diagnoses Not on filedocumented in this encounter Additional Health Concerns Assessment Noted Time PHQ-9 Depression Total Score: 9 12/30/19 25 1:30 PM EDT documented as of this encounter Care Teams Qc Manager Relationship Specialty Start Date End Date Mely Vasquez MD 230 [place] [address] PCP - General Family Medicine 05/11/21 documented as of this encounter
--- OUTSIDE RECORDS SUMMARY | 2025-06-21 20:22 | XMS_ITS | Encounter Summary ---
Author Organization [employer] Address 75 [facility] 7t [place] [address] Care Team Providers Care Locomotive Mechanic Apprentice Name Role Phone Mely Vasquez MD Primary Care Provider [phone] Reason for Visit * Reason Onset Date Comments Med Refill 01/02/2024 Encounter Details Date Type Department Care Team ([facility] Contact Info) Description 01/02/2024 Telephone [facility] MEDICINE 230 [place], [place] [phone] Mely Vasquez MD 230 [place], [place] [phone] Med Refill Social History Tobacco Use Types [...] Miscellaneous Notes * Telephone Encounter - Justin aMnley - 01/02/2024 2:08 PM EDT TC from pt requesting medication refill. Medications needing refill : oxyCODONE (Roxicodone) 15 MG immediate release tablet To be sent to: [facility]/PHARMACY #[id number] [place] [address] - [address] [place] [address] documented in this encounter Plan of Treatment Upcoming Encounters Date Type Department Care Team (Late st Contact Info) Description 07/26/2025 1:45 PM EST Office Visit [facility] MEDICINE 230 [place] [address] Mely Vasquez MD 230 [place] [address] documented as of this encounter Visit Diagnoses Not on filedocumented in this encounter Additional Health Concerns Assessment Noted Time PHQ-9 Depression Total Score: 0 02/27/20 23 3:09 PM EDT documented as of this encounter Care Teams Locomotive Mechanic Apprentice Relationship Specialty Start Date End Date Mely Vasquez MD 230 [place], [place] [phone] PCP - General Family Medicine 05/11/21 documented as of this encounter
--- OUTSIDE RECORDS SUMMARY | 2025-06-21 20:22 | XMS_ITS | Encounter Summary ---
Author Organization [employer] Address 75 [facility] 7t [place] [address] Care Team Providers Care Spice Blender Name Role Phone Mely Vasquez MD Primary Care Provider [phone] Reason for Visit * Reason Onset Date Comments Durable Medical Equipment 03/23/2024 Encounter Details Date Type Department Care Team ([facility] Contact Info) Description 03/23/2024 Telephone [facility] MEDICINE 230 [place], [place] [phone] Mely Vasquez MD 230 [place], [place] [phone] Durable Medical Equipment Social History Tobacco Use [...] 1:45 PM EST Office Visit [facility] MEDICINE [address] [place] [address] Mely Vasquez MD 230 [place] [address] documented as of this encounter Visit Diagnoses Not on filedocumented in this encounter Additional Health Concerns Assessment Noted Time PHQ-9 Depression Total Score: 0 02/27/20 23 3:09 PM EDT documented as of this encounter Care Teams Spice Blender Relationship Specialty Start Date End Date Meyl Vasquez MD [address] [place] [address] PCP - General Family Medicine 05/11/21 documented as of this encounter
--- OUTSIDE RECORDS SUMMARY | 2025-06-21 20:22 | XMS_ITS | Encounter Summary ---
Author Organization [employer] Address 75 [facility] 7t [place] [address] Care Team Providers Care Reproductive Surgeon Name Role Phone Mely Vasquez MD Primary Care Provider [phone] Reason for Visit * Reason Onset Date Comments Med Refill 04/22/2023 Encounter Details Date Type Department Care Team ([facility] Contact Info) Description 04/22/2023 Telephone [facility] MEDICINE 230 [place], [place] [phone] Mely Vasquez MD 230 [place], [place] [phone] Med Refill Social History Tobacco Use Types [...] 1:45 PM EST Office Visit [facility] MEDICINE 230 [place], [place] [phone] Mely Vasquez MD 230 [place] [address] documented as of this encounter Visit Diagnoses Not on filedocumented in this encounter Additional Health Concerns Assessment Noted Time PHQ-9 Depression Total Score: 0 02/27/20 23 3:09 PM EDT documented as of this encounter Care Teams Reproductive Surgeon Relationship Specialty Start Date End Date Mely Vasquez MD [address] [place] [address] PCP - General Family Medicine 05/11/21 documented as of this encounter
--- OUTSIDE RECORDS SUMMARY | 2025-06-21 20:22 | XMS_ITS | Encounter Summary ---
Author Organization [employer] Address 75 [facility] 7t [place] [address] Care Team Providers Care Card Room Manager Name Role Phone Mely Vasquez MD Primary Care Provider [phone] Reason for Visit * Reason Onset Date Comments Med Refill 01/11/2025 Encounter Details Date Type Department Care Team ([facility] Contact Info) Description 01/11/2025 Telephone [facility] MEDICINE 230 [place], [place] [phone] Mely Vasquez MD 230 [place], [place] [phone] Med Refill Social History Tobacco Use Types [...] one week supply. To be sent to: [facility]/pharmacy #[id number] documented in this encounter Plan of Treatment Upcoming Encounters Date Type Department Care Team (Late st Contact Info) Description 07/26/2025 1:45 PM EST Office Visit [facility] MEDICINE 230 [place] [address] Mely Vasquez MD 230 [place] [address] documented as of this encounter Visit Diagnoses Not on filedocumented in this encounter Additional Health Concerns Assessment Noted Time PHQ-9 Depression Total Score: 9 12/30/19 25 1:30 PM EDT documented as of this encounter Care Teams Card Room Manager Relationship Specialty Start Date End Date Mely Vasquez MD 230 [place] [address] PCP - General Family Medicine 05/11/21 documented as of this encounter
--- OUTSIDE RECORDS SUMMARY | 2025-06-21 20:22 | XMS_ITS | Encounter Summary ---
Author Organization [employer] Address 75 [facility] 7t [place] [address] Care Team Providers Care Prototype Machine Operator Name Role Phone Mely Vasquez MD Primary Care Provider [phone] Reason for Visit * Reason Onset Date Comments Med Refill 10/21/2024 Encounter Details Date Type Department Care Team ([facility] Contact Info) Description 10/21/2024 Telephone [facility] MEDICINE 230 [place], [place] [phone] Mely Vasquez MD 230 [place], [place] [phone] Med Refill Social History Tobacco Use Types [...] be sent to: [facility]/pharmacy #[id number] [place] [address] - [address] [place] [address] documented in this encounter Plan of Treatment Upcoming Encounters Date Type Department Care Team (Late st Contact Info) Description 07/26/2025 1:45 PM EST Office Visit [facility] MEDICINE 230 [place] [address] Mely Vasquez MD 230 [place] [address] documented as of this encounter Visit Diagnoses Not on filedocumented in this encounter Additional Health Concerns Assessment Noted Time PHQ-9 Depression Total Score: 0 02/27/20 23 3:09 PM EDT documented as of this encounter Care Teams Prototype Machine Operator Relationship Specialty Start Date End Date Mely Vasquez MD 230 [place] [address] PCP - General Family Medicine 05/11/21 documented as of this encounter
--- OUTSIDE RECORDS SUMMARY | 2025-06-21 20:22 | XMS_ITS | Encounter Summary ---
Author Organization [employer] Address 75 [facility] 7t [place] [address] Care Team Providers Care Seal Mixer Name Role Phone Mely Vasquez MD Primary Care Provider [phone] Reason for Visit * Reason Comments Med Refill Encounter Details Date Type Department Care Team ([facility] st Contact Info) Description 04/26/2024 Refill [facility] MEDICINE 230 [place], [place] [phone] Mely Vasquez MD 230 [place], [place] [phone] Chronic rhinosinusitis; Chronic sinusitis, unspecified location Social [...] your housing situation today? I have nydia orlelana 05/15/[address] you li [...] Description 07/26/2025 1:45 PM EST Office Visit [facility] MEDICINE [address] [place] [address] Mely Vasquez MD [address] [place] [address] documented as of this encounter Visit Diagnoses Diagnosis Chronic rhinosinusitis Unspecified sinusitis (chronic) Chronic sinusitis, unspecified location documented in this encounter Additional Health Concerns Assessment Noted Time PHQ-9 Depression Total Score: 0 02/27/20 23 3:09 PM EDT documented as of this encounter Care Teams Seal Mixer Relationship Specialty Start Date End Date Mely Vasquez MD [address] [place] [address] PCP - General Family Medicine 05/11/21 documented as of this encounter
--- OUTSIDE RECORDS SUMMARY | 2025-06-21 20:22 | XMS_ITS | Encounter Summary ---
Author Organization [employer] Address 75 [facility] 7t [place] [address] Care Team Providers Care Geriatric Nurse Name Role Phone Mely Vasquez MD Primary Care Provider [phone] Reason for Visit * Reason Onset Date Comments Med Refill 05/03/2025 Encounter Details Date Type Department Care Team ([facility] Contact Info) Description 05/03/2025 Telephone [facility] MEDICINE 230 [place], [place] [phone] Mely Vasquez MD 230 [place], [place] [phone] Med Refill Social History Tobacco Use Types [...] * Telephone Encounter - Yevgeniy Pink - 05/03/2025 8:14 AM EDT TC from pt requesting medication refill. Medications needing refill : oxyCODONE (Roxicodone) 15 MG immediate release tablet To be sent to: [facility]/pharmacy #[address] [place] [address] documented in this encounter Plan of Treatment Upcoming Encounters Date Type Department Care Team (Late st Contact Info) Description 07/26/2025 1:45 PM EST Office Visit [facility] MEDICINE 230 [place] [address] Mely Vasquez MD 230 [place] [address] documented as of this encounter Visit Diagnoses Not on filedocumented in this encounter Additional Health Concerns Assessment Noted Time PHQ-9 Depression Total Score: 9 12/30/19 25 1:30 PM EDT documented as of this encounter Care Teams Geriatric Nurse Relationship Specialty Start Date End Date Mely Vasquez MD [address] [place] [address] PCP - General Family Medicine 05/11/21 documented as of this encounter
--- OUTSIDE RECORDS SUMMARY | 2025-06-21 20:22 | XMS_ITS | Encounter Summary ---
Author Organization [employer] Address 75 [facility] 7t [place] [address] Care Team Providers Care Teacher Instrumental Name Role Phone Mely Vasquez MD Primary Care Provider [phone] Reason for Visit * Reason Onset Date Comments Med Refill 05/21/2023 Encounter Details Date Type Department Care Team ([facility] Contact Info) Description 05/21/2023 Telephone [facility] MEDICINE 230 [place], [place] [phone] Mely Vasquez MD 230 [place], [place] [phone] Med Refill Social History Tobacco Use Types [...] immediate release tablet, pt stated went to [facility] and the store has 40, pt is requesting order of 44 to be send [facility]. documented in this encounter Plan of Treatment Upcoming Encounters Date Type Department Care Team (Late st Contact Info) Description 07/26/2025 1:45 PM EST Office Visit [facility] MEDICINE [address] [place] [address] Mely Vasquez MD 230 [place] [address] documented as of this encounter Visit Diagnoses Not on filedocumented in this encounter Additional Health Concerns Assessment Noted Time PHQ-9 Depression Total Score: 0 02/27/20 23 3:09 PM EDT documented as of this encounter Care Teams Teacher Instrumental Relationship Specialty Start Date End Date Mely Vasquez MD [address] [place] [address] PCP - General Family Medicine 05/11/21 documented as of this encounter
--- OUTSIDE RECORDS SUMMARY | 2025-06-21 20:22 | XMS_ITS | Encounter Summary ---
Author Organization [employer] Address 75 [facility] 7t [place] [address] Care Team Providers Care Hand Candle Molder Name Role Phone Mely Vasquez MD Primary Care Provider Reason for Visit * Reason Onset Date Comments Med Refill 03/20/2024 Encounter Details Date Type Department Care Team ([facility] Contact Info) Description 03/20/2024 Telephone [facility] MEDICINE 230 [place], [place] [phone] Mely Vasquez MD 230 [place], [place] [phone] Med Refill Social History Tobacco Use Types [...] tablet To be sent to: [facility]/pharmacy #[id number] [place] [address] - [address] [place] [address] documented in this encounter Plan of Treatment Upcoming Encounters Date Type Department Care Team (Late st Contact Info) Description 07/26/2025 1:45 PM EST Office Visit [facility] MEDICINE 230 [place] [address] Mely Vasquez MD [address] [place] [address] documented as of this encounter Visit Diagnoses Not on filedocumented in this encounter Additional Health Concerns Assessment Noted Time PHQ-9 Depression Total Score: 0 02/27/20 23 3:09 PM EDT documented as of this encounter Care Teams Hand Candle Molder Relationship Specialty Start Date End Date Mely Vasquez MD [address] [place] [address] [phone] PCP - General Family Medicine 05/11/21 documented as of this encounter
--- OUTSIDE RECORDS SUMMARY | 2025-06-21 20:22 | XMS_ITS | Clinical Summary ---
Author Organization [employer] Address [address] [place] [address] 7t [place] [address] Care Team Providers Care Review Coordinator Name Role Phone Mely Vasquez MD Primary Care Provider [phone] Allergies Active Allergy Reactions Criticality Noted Date [...] mouth in the evening. 09/24/19 23 Active senna (Senokot) 8.6 MG tablet TAKE [...] MORNING 90 tablet 1 04/27/20 24 Active valACYclovir (Valtrex) 500 MG [...] wheezing. 18 g 3 03/30/20 25 Active naloxone (Narcan) 4 mg/0.1 mL nasal spray Administer 1 spray (4 mg) into affected nostril(s) if needed for opioid reversal. 2 each 1 05/03/20 25 Active Nicotine (Nicotrol NS) 10 MG/ML solution SPRAY ONCE IN EACH NOSTRIL UP TO 5 TIMES PER HOUR, NOT TO EXCEED 40 TIMES A DAY 40 mL 3 05/04/20 Active oxyCODONE (Roxicodone) 15 MG immediate release tabletIndicati ons:Lumbar disc disease Take 1 tablet (15 mg) by mouth every 8 (eight) hours if needed (pain) for up to 28 days. Do not start before May 31, 2025. 84 tablet 05/31/20 25 2024 Active oxyCODONE (Roxicodone) 15 MG immediate release tabletIndicati ons:Lumbar disc disease Take 1 tablet (15 mg) by mouth every 8 (eight) hours if needed (pain) for up to 28 days. Do not start before May 04, 2025. 84 tablet 05/04/20 25 2024 Discontinued(R eorder (will not trigger notification to Pharmacy)) Active Problems Problem Noted Date Diagnosed Date Erectile dysfunction 04/04/2025 Assessment & Plan (04/04/2025 11:55 AM EDT): - Following with [facility]rology, last seen February 2025 - Continue tadalafil as prescribed Hypogonadism in male 04/04/2025 Assessment & Plan (04/04/2025 11:48 AM EDT): - Following with [facility] urologist, last seen in February 2025 - Continue testosterone as prescribed Colitis 04/04/2025 Assessment & Plan (04/04/2025 12:07 PM EDT): - Patient has already completed her antibiotic treatment (metronidazole and quinolone), and now is on another course of antibiotic (Augmentin). -Status post systemic steroid treatment - Continue metoclopramide as prescribed by GI - Continue following with [facility] At risk for nutrition deficiency 01/11/2025 [...] disease, postlaminectomy syndrome of lumbar region Last LOIN PULLER Agreement: 02/16/25 Tier: 2.5 (Asphalt Heater Tender Q3-4 mo) - eval by PCP December [...] 11:58 AM EDT): - seen by urologist, [facility] - previously on tamsulosin, but patient states he was prescribed tamsulosin for a short-term only. Assessment & Plan (12/29/2024 1:12 PM EDT): - seen by urologist, [facility] - patient states he was prescribed tamsulosin for a short-term only. Will check the treatment plan - tamsulosin will help his BP as well Assessment & Plan (08/03/2024 3:19 PM EST): - seen by urologist, [facility] - patient states he was prescribed tamsulosin for a short-term only. Will check the treatment plan - tamsulosin will help his BP as well Assessment & Plan (04/10/2024 6:39 AM EDT): - seen by urologist, [facility] - patient states he was prescribed tamsulosin [...] enucleation - evaluated by ocular specialist and parachute cushion installer - treatment will not be covered by [...] ENT - consider evaluation by allergy / community development specialist for allergy test / immunotherapy. Assessment & Plan (12/27/2022 12:16 PM EDT): - continue montelukast - restart cetirizine - consider electronic security specialist for allergy testing / immunotherapy Chronic [...] Assessment & Plan (04/04/2025 12:02 PM EDT): -[facility] provider: [facility] -Psychiatrist: Dr. Chavarria -Clinician: Previously Elyssa Serrano, [...] preferred alprazolam - continue following with current [facility] provider Assessment & Plan (02/27/2023 6:34 AM EDT): -[facility] provider: [facility] -Psychiatrist: Dr. Chavarria -Clinician: Previously Elyssa Serrano, [...] higher dose - continue following with current [facility] provider Assessment & Plan (12/18/2022 2:48 PM EDT): -[facility] provider: Roberta -Psychiatrist: Dr. Chavarria -Clinician: Previously Elyssa Serrano, but pt does not have one currently -Evaluated by Nicko from [facility] -Pt has an upcoming appt with Dr. [...] (04/04/2025 12:08 PM EDT): - Followed by [facility] GI, last seen in February 2025 - EGD in Feb 2024, small hiatal hernia and minimal gastritis - Continue Omeprazole 20mg BID - work on smoking cessation - avoid NSAIDs - H. Pylori test was negative in October 2023 Assessment & Plan (12/29/2024 1:12 PM EDT): - Followed by [facility] GI, last seen in May 2024, upcoming follow up appointment in Jul 2024 - EGD in Feb 2024, small hiatal hernia and minimal gastritis - Continue Omeprazole 20mg BID - work on smoking cessation - avoid NSAIDs - H. Pylori test was negative in October 2023 Assessment & Plan (08/09/2024 10:38 AM EST): - Followed by [facility] GI, last seen in May 2024, upcoming follow up appointment in Jul 2024 - EGD in Feb 2024, small hiatal hernia and minimal gastritis - Continue Omeprazole 20mg BID - work on smoking cessation - avoid NSAIDs - H. Pylori test was negative in October 2023 Assessment & Plan (04/07/2024 2:23 PM EDT): - Followed by [facility], last seen in November 2023 - Continue Omeprazole 20mg BID - work on smoking cessation - avoid NSAIDs - H. Pylori test was negative in October 2023 Assessment & Plan (12/24/2023 4:41 PM EDT): - Followed by [facility] GI, last seen in November 2023 - Continue Omeprazole 20mg BID - work on smoking cessation - avoid NSAIDs - H. Pylori test was negative in October 2023 Assessment & Plan (08/25/2023 4:45 PM EST): - Followed by [facility], last seen in Jun 2023 - Continue Omeprazole 20mg BID - work on smoking cessation - avoid NSAIDs Assessment & Plan (12/18/2022 2:52 PM EDT): Seen by GI, NOVEMBER 2022 -Rx Omeprazole 20mg BID -cont current tx plan -work on smoking cessation -avoid NSAIDs Blurry vision, right eye 12/18/2022 Assessment & Plan (08/25/2023 4:55 PM EST): - seen by parachute cushion installer in Mar 2023 - dry eye - [...] stimulator removed on 09/26/[address] Beasley ([facility]). It was placed 7-8 years ago in [place]. -MRI in Feb 2023 showed: 1. Stable [...] post-laminectomy syndrome. -Continue judicious use of oxycodone -LOIN PULLER agreement is up to date - Follow up in 3-4 mo or sooner prn Assessment & Plan (02/27/2023 6:20 AM EDT): - on chronic opioid treatment with oxycodone 15 mg q8 hours since 07/17/2017. - Nerve stimulator removed on 09/26/[address] Beasley ([facility]). It was placed 7-8 years ago in [place]. - MRI on 03/01/21 showed: --Postoperative findings [...] of arachnoiditis. -Continue judicious use of oxycodone -LOIN PULLER agreement is up to date - Follow up in 3 mo or sooner prn - recent exacerbation in pain; adding celecoxib for short-term Assessment & Plan (12/18/2022 2:40 PM EDT): -He's on chronic opioid of oxycodone 15 mg q8 hours since 07/17/2017. -Nerve stimulator removed on 09/26/[address] Beasley ([facility]). It was placed 7-8 years ago in [place]. -MRI scheduled and completed, 03/01/21. ~MRI findings [...] of arachnoiditis. -Continue judicious use of oxycodone -LOIN PULLER agreement review is up to date Vitamin [...] (12/24/2023 4:39 PM EDT): - following with [facility], last seen on 12/18/23 - plan to evaluate with EGD and abdominal US - continue omeprazole and sucralfate [place] cancer screening 12/19/202308/09 Acute upper respiratory infection 12/13/2022 02/26/2023 Encounters Date Type Department Care Team Description 06/21/2025 Telephone [facility] [address] [place] [phone] Mely Vasquez MD Error (VOID this visit) 05/28/2025 Refill [facility] [address] [place] [address] Liset Cage RN Lumbar disc disease 05/28/2025 Telephone [facility] [address] [place] [phone] Mely Vasquez MD Med Refill 05/26/[address] [facility] [address] [place] [address] Liset Cage RN 05/24/2025 Telephone [facility] [address] [place] [phone] Mely Vasquez MD Nurse Triage 05/03/2025 Refill [facility] [address] [place] [address] Mely Vasquez MD 05/03/2025 Refill [facility] [address] [place] [address] Mely Vasquez MD Lumbar disc disease 05/03/2025 Refill [facility] [address] [place] [address] Liset Cage RN Lumbar disc disease 05/03/2025 Telephone [facility] [address] [place] [address] Mely Vasquez MD Med Refill 04/20/2025 Telephone [facility] [address] [place] [address] Mely Vasquez MD Paperwork/Forms 04/05/2025 Refill [facility] [address] [place] [address] Liset Cage, RN Lumbar disc disease 04/05/[address] [facility] [address] [place] [address] Liset Cage RN LOIN PULLER 04/05/2025 Telephone [facility] [address] [place] [address] Mely Vasquez MD Med Refill 03/30/2025 1:30 PM EDT Office Visit [facility] [address] [place] [address] Mely Vasquez MD Hypertension, unspecified type (Primary [...] EXTERNAL DATA DEPARTMENT Provider, Generic External Data from Last 3 Months Immunizations Immunization Administration [...] Description 07/26/2025 1:45 PM EST Office Visit [facility] [address] [place] [address] Mely Vasquez MD [address] [place] [address] Health Maintenance Due Date Last Done Comments [...] PSA, FREE Routine 03/23/2025 2:22 PM EDT LIPID PANEL WITH REFLEX TO DIRECT LDL [...] PM EDT Narrative 04/12/2025 3:57 PM EDT [address] [address] [address] Scan Report Signed Patient: Hosea Stoner MR#: [id number] : 1975 Acct:[id number] Age/Sex: 49 / M ADM Date: 04/12/25 Loc: HO.CT Attending Dr: Susanna ROBLES Ordering Physician: Susanna Sanchez Date of Service: 04/12/25 Procedure(s): CT abdomen pelvis w IV con Accession Number(s): [id number] cc: Susanna Sanchez; Mely Vasquez MD Report Number: [id number]: Total DLP = 214.00 mGy-cm Reason for [...] 04/12/25 1555 DD/ 1513 TD/TT: 04/12/25 1532 Day Care Home Mother: Procedure Note Donotuseinterpreter, Image - 04/12/[address] [place] [address] [address] Scan Report Signed Patient: Hosea Stoner [facility]#: [id number] : 1975Acct:[id number] Age/Sex: 49 / MADM Date: 04/12/25 Loc: HO.CT Attending Dr: Susanna ROBLES Ordering Physician: Susanna Sanchez Date of Service: 04/12/25 Procedure(s): CT abdomen pelvis w IV con Accession Number(s): [id number] cc: Susanna Sanchez; Mely Vasquez MD Report Number: [id number]: Total DLP = 214.00 mGy-cm Reason for [...] 04/12/25 1555 DD/ 1513 TD/TT: 04/12/25 1532 Day Care Home Mother: [facility] External Provider IMG CT PROCEDURES Final Result * NM Gastric Emptying Solid (04/08/2025 8:30 AM EDT) Anatomical Region Laterality Modality Body Nuclear Medicine 04/08/2025 8:30 AM EDT Narrative 04/08/2025 12:30 PM EDT [place] [address] Nuclear Medicine Report Signed Patient: Hosea Stoner MR#: [id number] : 1975 Acct:[id number] Age/Sex: 49 / M ADM Date: 04/08/25 Loc: FAIZA Attending Dr: Susanna ROBLES Ordering Physician: Susanna Sanchez Date of Service: 04/08/25 Procedure(s): NM gastric emptying study Accession Number(s): [id number] cc: Susanna Sanchez; Mely Vasquez MD Reason [...] grading per JNMT Consensus Recommendations in 2008 (https://tech.snmjournals.org/content/36/144) Grade 1 (mild retention): 11-20% at 4h Grade 2 (moderate retention): 21-35% at 4h Grade 3 (severe retention): 36-50% at 4h Grade 4 (very severe retention): >50% retention at 4h Electronically signed by: Noe Martinez MD 04/08/2025 12:27 PM EDT Dictated By: Noe Martinez MD Signed By: <Electronically signed by Noe Martinez MD in OV> 04/08/25 1227 DD/ 0830 TD/TT: 04/08/25 1205 Day Care Home Mother: Procedure Note Donotuseinterpreter, Image - 04/08/[address] [address] Nuclear Medicine Report Signed Patient: Hosea Stoner [facility]#: M [id number] : 1975Acct:[id number] Age/Sex: 49 / MADM Date: 04/08/25 Loc: FAIZA Attending Dr: Susanna ROBLES Ordering Physician: Susanna Sanchez Date of Service: 04/08/25 Procedure(s): NM gastric emptying study Accession Number(s): [id number] cc: Susanna Sanchez; Mely Vasquez MD Reason [...] hours 33% (normal 30%-60%) 3 hours 2% PA/PA gastric emptying study IMPRESSION: Normal 4-hour solid [...] 04/08/25 1227 DD/ 0830 TD/TT: 04/08/25 1205 Day Care Home Mother: us [facility] External Provider IMG NM PROCEDURES Final Result * PSA, Total With Reflex to PSA, Free (03/23/2025 2:22 PM EDT) PSA,Total (Free>4and<10) 0.48 0.00 - 4.00 ng/mL [facility] Comment:A Free PSA was not [...] Provider LAB BLOOD ORDERAB LES Final Result [facility] [address] [place] [phone] * Testosterone, Free (Dialysis) And Total, MS (03/23/2025 2:22 PM EDT) Testosterone, Total 626 250 - 1100 ng/dL [facility] Comment:For additional infor mation, please refer tohttp://education.Symetrica/faq/CwovyZixvmmjyrkjzYZUGAQKFR629(This link is being provided for informational/educational purposes only.)This test was developed and its analytical performancecharacteristics have been determined by [employer] [place], [place]. It hasnot been cleared or approved by the U.S. Food and DrugAdministration. This assay has been validated pursuantto the CLIA regulations and is used for clinicalpurposes. Testosterone, Free 97.0 35.0 - 155.0 pg/mL [facility] Comment:This test was develo ped and its analytical performancecharacteristics have been determined by [employer] [place], [place]. It hasnot been cleared or approved by the U.S. Food and DrugAdministration. This assay has been validated pursuantto the CLIA regulations and is used for clinicalpurposes.THIS TEST WAS PERFORMED AT:[employer] [id number] [place] [id number] PANTOJA MD,PHD 03/23/2025 2:22 PM EDT 03/23/2025 2:22 PM EDT us Generic External Data Provider LAB BLOOD ORDERAB LES Final Result [facility] [address] [place] [phone] * (ABNORMAL) Lipid Panel with Reflex to Direct LDL (01/14/2025 1:55 PM EDT) [facility] Triglycerides 106 <150 mg/dL [facility] Comment:Desirable Triglyceri de: less than 150 mg/dLBorderline High Triglyceride 150-199 mg/dLHigh Triglyceride: 200-499 mg/dLVery High Triglyceride: greater than or equal to 5OO mg/dL Cholesterol 136 <200 mg/dL [facility] Comment:Desirable Cholestero l: less than 200 mg/dLBorderline High Cholesterol: 200-239 mg/dLHigh Cholesterol: greater than 239 mg/dL LDL Cholesterol Calculated 77 <100 mg/dL [facility] Comment:Desirable LDL: less than 100 mg/dLNear Optimal/Above Optimal LDL: 110- 129 mg/dLBorderline High LDL: 130-159 mg/dLHigh LDL: 160-189 mg/dLVery High LDL: greater than or equal to 190 mg/dL HDL Cholesterol 38(L) >40 mg/dL [facility] Comment:Desirable HDL: great er than 40 mg/dL Note: This HDL assay may give artificially low results in patients with liver disease. Blood 01/14/2025 1:55 PM EDT 01/14/2025 1:55 PM EDT Mely Vasquez MD LAB BLOOD ORDERABLES Final Resul t [facility] [address] [place] [phone] * Colonoscopy (10/09/2022) Colonoscopy Normal Normal Historical Provider HEALTH MAINTENANCE Edited Result - Final * HIV AB/AG (04/27/2022 2:42 PM EDT) HIV AB/AG Nonreactive Nonreactive [facility] Comment: HIV-1 p24 Ag [...] of detection of this assay. [employer] Human Resources Manager HIV Ag/Ab Combo assay result and supplemental assay results should be interpreted in conjunction with the patient's clinical presentation, history and other laboratory results. If the results are inconsistent with clinical evidence, additional testing is suggested to confirm the result. Hepatitis B Surface Antibody NONREACTIVE Nonreactive [facility] Comment:Nonreactive: < 8.00 mIU/mL 04/27/2022 2:42 PM EDT Mely Vasquez MD HISTORICAL/NON ORDERABLE LABS Fi nal Result [facility] from Last 3 Months or Most Recently Relevant to Health Maintenance Insurance [facility] < 65 [facility] STANDARD DENTAL-[facility] [employer] STAND ADULT DENTAL - [facility] PPO Care Teams Review Coordinator Relationship Specialty Start Date End Date Mely Vasquez MD [address] [place] [phone] PCP - General Family Medicine 05/11/21
--- OUTSIDE RECORDS SUMMARY | 2025-06-21 20:22 | XMS_ITS | Encounter Summary ---
Author Organization [employer] Address [address] [facility] 7 [place] [address] Care Team Providers Care Home Care Specialist Name Role Phone Mely Vasquez MD Primary Care Provider [phone] Reason for Visit * Reason Onset Date Comments ER Follow-up 12/10/2024 Nurse Triage 12/10/2024 Encounter Details Date Type Department Care Team ([facility] st Contact Info) Description 12/10/2024 Telephone [facility] [address] [place], [place] [phone] Mely Vasquez MD [address] [place] [address] ER Follow-up; Nurse Triage Social History Tobacco [...] ED visit on : Date: 12/03 [place] [facility] Seen for: Gastro-esophageal reflux disease, Constipation Symptomatic Yes *if yes message should go to Triage Patient advised will forward to team nurse for follow up Symptoms: Pain - Severe, Diarrhea Outcome: Talk to a nurse or provider within 15 minutes Reason: Blood in the diarrhea The caller accepted this outcome. [phone] documented in this encounter Plan of Treatment Upcoming Encounters Date Type Department Care Team (Late st Contact Info) Description 07/26/2025 1:45 PM EST Office Visit [facility] [address] [place] [address] Mely Vasquez MD [address] [place] [address] documented as of this encounter Visit Diagnoses Not on filedocumented in this encounter Additional Health Concerns Assessment Noted Time PHQ-9 Depression Total Score: 0 02/27/20 23 3:09 PM EDT documented as of this encounter Care Teams Home Care Specialist Relationship Specialty Start Date End Date Mely Vasquez MD [address] [place] [phone] PCP - General Family Medicine 05/11/21 documented as of this encounter
--- OUTSIDE RECORDS SUMMARY | 2025-06-21 20:22 | XMS_ITS | Encounter Summary ---
Author Organization [employer] Address [address] [facility] 7t [place] [address] Care Team Providers Care Radiation Oncology Therapist Name Role Phone Mely Vasquez MD Primary Care Provider Reason for Visit * Reason Onset Date Comments Reschedule 12/04/2023 Encounter Details Date Type Department Care Team ([facility] Contact Info) Description 12/04/2023 Telephone [facility] [address] [place], [place] [phone] Mely Vasquez MD [address] [place], [place] [phone] Reschedule Social History Tobacco Use Types Packs/Day [...] AM EDT Tc from pt requesting r/s LIABILITY CLAIMS EXAMINER appt documented in this encounter Plan of Treatment Upcoming Encounters Date Type Department Care Team (Late st Contact Info) Description 07/26/2025 1:45 PM EST Office Visit [facility] [address] [place], [place] [phone] Mely Vasquez MD [address] [place] [address] documented as of this encounter Visit Diagnoses Not on filedocumented in this encounter Additional Health Concerns Assessment Noted Time PHQ-9 Depression Total Score: 0 02/27/20 23 3:09 PM EDT documented as of this encounter Care Teams Radiation Oncology Therapist Relationship Specialty Start Date End Date Mely Vasquez MD [address] [place], [place] [phone] PCP - General Family Medicine 05/11/21 documented as of this encounter
--- OUTSIDE RECORDS SUMMARY | 2025-06-21 20:22 | XMS_ITS | Encounter Summary ---
Author Organization [employer] Address [address] [facility] 7t [place] [address] Care Team Providers Care Validation Scientist Name Role Phone Mely Vasquez MD Primary Care Provider [phone] Reason for Visit * Reason Onset Date Comments Med Refill 12/10/2024 Encounter Details Date Type Department Care Team ([facility] Contact Info) Description 12/10/2024 Telephone [facility] [address] [place], [place] [phone] Mely Vasquez MD [address] [place], [place] [phone] Med Refill Social History Tobacco Use Types [...] tablet To be sent to: [facility]/pharmacy [address] [place] [address] * Telephone Encounter - Kami Serrano - 12/10/2024 8:41 AM EDT TC from pt requesting medication refill. Medications needing refill : oxyCODONE (Roxicodone) 15 MG immediate release tablet To be sent to: [facility]/pharmacy [address] [place] [address] [facility]. Pt was advised. documented in this encounter Plan of Treatment Upcoming Encounters Date Type Department Care Team (Late st Contact Info) Description 07/26/2025 1:45 PM EST Office Visit [facility] [address] [place], [place] [phone] Mely Vasquez MD [address] [place], [place] [phone] documented as of this encounter Visit Diagnoses Not on filedocumented in this encounter Additional Health Concerns Assessment Noted Time PHQ-9 Depression Total Score: 0 02/27/20 23 3:09 PM EDT documented as of this encounter Care Teams Validation Scientist Relationship Specialty Start Date End Date Mely Vasquez MD [address] [place] [address] PCP - General Family Medicine 05/11/21 documented as of this encounter
--- OUTSIDE RECORDS SUMMARY | 2025-06-21 20:22 | XMS_ITS | Encounter Summary ---
Author Organization [employer] Address [address] [facility] 7t [place] [address] Care Team Providers Care Hybrid Corn Breeder Name Role Phone Mely Vasquez MD Primary Care Provider [phone] Reason for Visit * Reason Onset Date Comments FYI 05/15/2023 Encounter Details Date Type Department Care Team ([facility] Contact Info) Description 05/15/2023 Telephone [facility] [address] [place], [place] [phone] Mely Vasquez MD [address] [place], [place] [phone] FY Social History Tobacco Use Types Packs/Day Years Used Date Smoking Tobacco: Every Day Cigarettes Passive Smoke Exposure: Current Smokeless Tobacco: Never Comments:8-9 cigs/daily; wor burce on quitting. On chantix but 1mg made [...] pt got an appt for 05/24/2023 at [facility] for [place] pain. documented in this encounter Plan of Treatment Upcoming Encounters Date Type Department Care Team (Late st Contact Info) Description 07/26/2025 1:45 PM EST Office Visit [facility] MED[facility] [address] [place] [phone] Mely Vasquez MD [address] [place] [address] documented as of this encounter Visit Diagnoses Not on filedocumented in this encounter Additional Health Concerns Assessment Noted Time PHQ-9 Depression Total Score: 0 02/27/20 23 3:09 PM EDT documented as of this encounter Care Teams Hybrid Corn Breeder Relationship Specialty Start Date End Date Mely Vasquez MD [address] [place] [phone] PCP - General Family Medicine 05/11/21 documented as of this encounter
--- OUTSIDE RECORDS SUMMARY | 2025-06-21 20:22 | XMS_ITS | Encounter Summary ---
Author Organization [employer] Address [address] [facility] 7t [place] [address] Care Team Providers Care Quality Control Microbiologist Name Role Phone Mely Vasquez MD Primary Care Provider [phone] Reason for Visit * Reason Onset Date Comments Med Refill 05/28/2025 Encounter Details Date Type Department Care Team ([facility] Contact Info) Description 05/28/2025 Telephone [facility] MEDICINE [address] [place], [place] [phone] Mely Vasquez MD [address] [place], [place] [phone] Med Refill Social History Tobacco Use Types [...] * Telephone Encounter - Yevgeniy Pink - 05/28/2025 8:49 AM EDT TC from pt requesting medication refill. Medications needing refill : oxyCODONE (Roxicodone) 15 MG immediate release tablet To be sent to: [facility]/pharmacy #[address] [place] [address] documented in this encounter Plan of Treatment Upcoming Encounters Date Type Department Care Team (Late st Contact Info) Description 07/26/2025 1:45 PM EST Office Visit [facility] MEDICINE [address] [place] [address] Mely Vasquez MD [address] [place] [address] documented as of this encounter Visit Diagnoses Not on filedocumented in this encounter Additional Health Concerns Assessment Noted Time PHQ-9 Depression Total Score: 9 12/30/19 25 1:30 PM EDT documented as of this encounter Care Teams Quality Control Microbiologist Relationship Specialty Start Date End Date Mely Vasquez MD [address] [place] [phone] PCP - General Family Medicine 05/11/21 documented as of this encounter
--- OUTSIDE RECORDS SUMMARY | 2025-06-21 20:22 | XMS_ITS | Encounter Summary ---
Author Organization [email or web address] Address [address] [facility] 7t [place] [address] Care Team Providers Care Exhibitor Sales Name Role Phone Mely Vasquez MD Primary Care Provider [phone] Reason for Visit * Reason Onset Date Comments Med Refill 06/26/2023 Encounter Details Date Type Department Care Team ([facility] st Contact Info) Description 06/26/2023 Refill [facility] MED[facility]INE [address] [place], [place] [phone] Mely Vasquez MD [address] [place], [place] [phone] Lumbar disc disease Social History Tobacco Use [...] oxyCODONE (Roxicodone) 15 MG immediate release tablet [facility]/pharmacy #[id number] [place] [address] - [address] [place] [address] documented in this encounter Plan of Treatment Upcoming Encounters Date Type Department Care Team (Late st Contact Info) Description 07/26/2025 1:45 PM EST Office [facility] [address] [place] [address] Mely Vasquez MD [address] [place] [address] documented as of this encounter Visit Diagnoses Diagnosis Lumbar disc disease Other and unspecified disc disorder of lumbar region documented in this encounter Additional Health Concerns Assessment Noted Time PHQ-9 Depression Total Score: 0 02/27/20 23 3:09 PM EDT documented as of this encounter Care Teams Exhibitor Sales Relationship Specialty Start Date End Date Mely Vasquez MD [address] [place], [place] [phone] PCP - General Family Medicine 05/11/21 documented as of this encounter
--- OUTSIDE RECORDS SUMMARY | 2025-06-21 20:22 | XMS_ITS | Encounter Summary ---
Author Organization [employer] Address [address] [facility] 7t [place] [address] Care Team Providers Care Planning And Analysis Manager Name Role Phone Mely Vasquez MD Primary Care Provider [phone] Reason for Visit * Reason Onset Date Comments Med Refill 01/28/2024 Encounter Details Date Type Department Care Team ([facility] Contact Info) Description 01/28/2024 Telephone [facility] MEDICINE [address] [place], [place] [phone] Mely Vasquez MD [address] [place], [place] [phone] Med Refill Social History Tobacco Use Types [...] tablet To be sent to: [facility]/pharmacy #[id number] [place] [address] - [address] [place] [address] documented in this encounter Plan of Treatment Upcoming Encounters Date Type Department Care Team (Late st Contact Info) Description 07/26/2025 1:45 PM EST Office Visit [facility] MEDICINE [address] [place] [address] Mely Vasquez MD [address] [place] [phone] documented as of this encounter Visit Diagnoses Not on filedocumented in this encounter Additional Health Concerns Assessment Noted Time PHQ-9 Depression Total Score: 0 02/27/20 23 3:09 PM EDT documented as of this encounter Care Teams Planning And Analysis Manager Relationship Specialty Start Date End Date Mely Vasquez MD [address] [place] [phone] PCP - General Family Medicine 05/11/21 documented as of this encounter
--- OUTSIDE RECORDS SUMMARY | 2025-06-21 20:22 | XMS_ITS | Encounter Summary ---
Author Organization [employer] Address [address] [place] [address] 7 [place] [address] Care Team Providers Care Service Superintendent Name Role Phone Mely Vasquez MD Primary Care Provider [phone] Reason for Referral * Consultation (Routine) - Closed Specialty Diagnoses / Procedures Referred By Contac t Referred To Contact Urology Diagnoses Benign prostatic hyperplasia, unspecified whether lower urinary tract symptoms present Mely Vasquez MD [address] [place] [phone] Phone: tel: fax: [facility] Referral ID Status Reason Start Date Expiration Date V isits Requested Visits Authorized [id number] Closed Specialty Services Required 11/22/2023 11/21/2024 1 1 Encounter Details Date Type Department Care Team (Late st Contact Info) Description 11/22/2023 Orders Only [facility] MEDICINE [address] [place] [phone] Mely Vasquez MD [address] [place] [address] [phone] Benign prostatic hyperplasia, unspecified whether lower urinary [...] Visit [facility] MEDICINE [address] [place] [phone] Mely Vasquez MD [address] [place] [address] Scheduled Referrals Name Type Priority Associated Diagnoses [...] Testosterone, Total 522 250 - 1100 ng/dL [facility] Comment:For additional infor shanon, please refer [email or web address](This link is being provided for informational/educational purposes only.)This test was developed and its analytical performancecharacteristics have been determined by [place] [place]. It hasnot been cleared or approved by the U.S. Food and DrugAdministration. This assay has been validated pursuantto the CLIA regulations and is used for clinicalpurposes.THIS TEST WAS PERFORMED AT:[facility] [place] [address]SHKQEAEMARYSOL PANTOJA MD,PHD Blood Venous blood specimen / Unknown 12/02/2023 1:02 PM EDT 12/02/2023 4:10 PM EDT us Mely Vasquez MD LAB BLOOD ORDERABLES Final Resul t [facility] [address] [place] [phone] * PSA,Total (12/02/2023 1:02 PM EDT) Prostate Specific Antigen 0.50 <0.05 - 4.0 ng/mL [facility] Comment:PSA methodology: Abb marielle Alividhity i ChemiluminescentMicroparticle Immunoassay (CMIA) Blood Venous blood specimen / Unknown 12/02/2023 1:02 PM EDT 12/02/2023 4:10 PM EDT Mely Vasquez MD LAB BLOOD ORDERABLES Final Resul t [facility] [address] [place] [phone] [phone] documented in this encounter Visit Diagnoses Diagnosis Benign prostatic hyperplasia, unspecified whether lower urinary tract symptoms present- Primary documented in this encounter Additional Health Concerns Assessment Noted Time PHQ-9 Depression Total Score: 0 02/27/20 23 3:09 PM EDT documented as of this encounter Care Teams Service Superintendent Relationship Specialty Start Date End Date Mely Vasquez MD [address] [place] [phone] PCP - General Family Medicine 05/11/21 documented as of this encounter
--- OUTSIDE RECORDS SUMMARY | 2025-06-21 20:22 | XMS_ITS | Clinical Summary ---
Author Organization [employer] [facility] Address [address] [place] [address] Care Team Providers Care Cook Room Supervisor Name Role Phone Unavailable Primary Care Provider [...] Depression Screening 07/29/2024 COVID-19 Vaccine (1 - 2024-2 6 season) 2025 Influenza Vaccine (#1) 2025 RSV [...]
== END 2025-06-21 16:55 | disposition home or self-care (01) ==
LOC: HO.HUSH 16:08
PROVIDERS: PCP Family Medicine; Visit Provider Urology
DX: R79.89 Other specified abnormal findings of blood chemistry (principal); N52.9 Male erectile dysfunction, unspecified; R35.0 Frequency of micturition
CPT/HCPCS: 99214

== ENCOUNTER 2025-07-13 06:51 | Day surgery (SDC) | payer OTHER, SELFPAY ==
--- NOTE | 2025-07-09 09:35 | HO.ANESPROP2 ---
Documented by User: Veena Lozano NP 07/09/25 09:37 HPI - Anesthesia Eval Consult details Narrative: 49 yr old male c/o colonoscopy GERD Daily tobacco use Asthma PMFSH Active Problems Active Problems: All Active Problems Left sided colitis (Acute) Left sided abdominal pain (Acute) Screening PSA (prostate specific antigen) (Acute) Low testosterone (Acute) Rectal bleeding (Acute) Abdominal pain (Acute) Nausea and vomiting (Acute) Colitis (Acute) Diverticulitis (Acute) Urinary frequency (Acute) Long-term current use of testosterone replacement therapy (Acute) Inguinal hernia (Acute) Erectile dysfunction (Acute) BPH loc w urin obs/LUTS (Acute) Tubular adenoma of colon (Acute) One eye-mod/oth-blind (Acute) GERD (gastroesophageal reflux disease) (Acute) Depression with anxiety (Acute) Chronic low back pain (Acute) Lumbar degenerative disc disease (Acute) Smoker (Acute) Asthma (Acute) Constipation (Acute) Past Medical History Medical History Screening PSA (prostate specific antigen) Low testosterone Abdominal pain Encounter for monitoring testosterone replacement therapy Upper abdominal pain Herpes simplex Rib pain on left side GERD (gastroesophageal reflux disease) Left inguinal hernia (04/26/24) Left groin hernia Constipation Depression with anxiety Asthma Colon cancer screening Pelvis, multiple open fractures with disruption of pelvic bad river band Failed spinal cord stimulator Family History Family history of problems with anesthesia: No Surgical History Surgical History Status post inguinal hernia repair using synthetic patch Postop check History of esophagogastroduodenoscopy (EGD) H/O colonoscopy History of arthroscopy of right knee History of back surgery H/O pelvic surgery H/O enucleation of left eyeball History of Problems with Anesthesia: No Social History Social History Are you a primary health care coordinator to a significant other at home: No Do you presently have visiting nurse or other home services: No Alcohol intake: never Comment: some gas pain/cramping intermittently. Patient Tobacco Use Status: Current everyday Tobacco user Tobacco use type: Cigarette Cigarette Packs Per Day: 0.5 Cigarettes Per Day: 10.0 Second Hand Smoke Exposure: No Meds Allergies Allergy/AdvReac Type Severity Reaction Status Date / Time amitriptyline Allergy Severe Confusion Verified 06/21/25 16:09 morphine (MORPHINE) Allergy Severe CONSTIPATION, Verified 06/21/25 16:09 stomach upset ibuprofen (From MOTRIN) AdvReac Intermediate ABD PAIN Verified 06/21/25 16:09 cyclobenzaprine (From AdvReac Mild DRY MOUTH Verified 06/21/25 16:09 FLEXERIL) influenza H1N1 Allergy Intermediate Weakness Uncoded 04/28/25 14:32 Home Medications ?Medication ?Instructions ?Recorded ?Confirmed ?Last Taken ?Type albuterol sulfate 90 mcg/actuation 2 puff inhalation Q4-6H PRN 12/04/21 07/09/25 Unknown History aerosol inhaler wheezing alprazolam 0.5 mg tablet 0.5 mg PO DAILY PRN anxiety 12/04/21 07/09/25 03/10/24 History cetirizine 10 mg tablet 10 mg PO QAM 12/27/22 03/19/25 Unknown History cholecalciferol (vitamin D3) 50 50 mcg PO DAILY 12/27/22 03/19/25 Unknown History mcg (2,000 unit) capsule valacyclovir 500 mg tablet 500 mg PO DAILY 12/27/22 07/09/25 Unknown History acetaminophen 500 mg tablet 500 mg PO Q6H PRN Pain, Mild 04/24/24 03/19/25 04/24/24 History oxycodone 15 mg tablet 15 mg PO TID PRN Pain 06/03/24 07/09/25 Unknown History valsartan 40 mg tablet 40 mg PO DAILY 12/04/24 03/19/25 Unknown History Assessment and Plan Final Anesthetic Review Family History of Problems with Anesthesia: No History of Problems with Anesthesia: No Documented by User: Momo Sage MD 07/13/25 16:36 [facility] Past Medical History Medical History Screening PSA (prostate specific antigen) Low testosterone Abdominal pain Encounter for monitoring testosterone replacement therapy Upper abdominal pain Herpes simplex Rib pain on left side GERD (gastroesophageal reflux disease) Left inguinal hernia (04/26/24) Left groin hernia Constipation Depression with anxiety Asthma Colon cancer screening Pelvis, multiple open fractures with disruption of pelvic bad river band Failed spinal cord stimulator Surgical History Surgical History Status post inguinal hernia repair using synthetic patch Postop check History of esophagogastroduodenoscopy (EGD) H/O colonoscopy History of arthroscopy of right knee History of back surgery H/O pelvic surgery H/O enucleation of left eyeball Social History Social History Are you a primary health care coordinator to a significant other at home: No Do you presently have visiting nurse or other home services: No Alcohol intake: never Comment: some gas pain/cramping intermittently. Patient Tobacco Use Status: Current everyday Tobacco user Tobacco use type: Cigarette Cigarette Packs Per Day: 0.5 Cigarettes Per Day: 10.0 Second Hand Smoke Exposure: No Meds Allergies Allergy/AdvReac Type Severity Reaction Status Date / Time amitriptyline Allergy Severe Confusion Verified 06/21/25 16:09 morphine (MORPHINE) Allergy Severe CONSTIPATION, Verified 06/21/25 16:09 stomach upset ibuprofen (From MOTRIN) AdvReac Intermediate ABD PAIN Verified 06/21/25 16:09 cyclobenzaprine (From AdvReac Mild DRY MOUTH Verified 06/21/25 16:09 FLEXERIL) influenza H1N1 Allergy Intermediate Weakness Uncoded 04/28/25 14:32 Home Medications ?Medication ?Instructions ?Recorded ?Confirmed ?Last Taken ?Type albuterol sulfate 90 mcg/actuation 2 puff inhalation Q4-6H PRN 12/04/21 07/09/25 Unknown History aerosol inhaler wheezing alprazolam 0.5 mg tablet 0.5 mg PO DAILY PRN anxiety 12/04/21 07/09/25 03/10/24 History cetirizine 10 mg tablet 10 mg PO QAM 12/27/22 03/19/25 Unknown History cholecalciferol (vitamin D3) 50 50 mcg PO DAILY 12/27/22 03/19/25 Unknown History mcg (2,000 unit) capsule valacyclovir 500 mg tablet 500 mg PO DAILY 12/27/22 07/09/25 Unknown History acetaminophen 500 mg tablet 500 mg PO Q6H PRN Pain, Mild 04/24/24 03/19/25 04/24/24 History oxycodone 15 mg tablet 15 mg PO TID PRN Pain 06/03/24 07/09/25 Unknown History valsartan 40 mg tablet 40 mg PO DAILY 12/04/24 03/19/25 Unknown History Assessment and Plan Assessment Anesthesia Assessment: Anesthesia Plan Discussed and Chart Reviewed Final Anesthetic Review NPO: Yes ASA Class: II Final Preanesthetic Review: No Changes in Pt Med Stat, Meds/Allgs Chart Reviewed, Consent Obtained/Reviewed and Anes Risks/Benef Reviewed Patient Risk: Low Procedure Risk: Low Anesthetic Plan Anesthetic Plan: MAC: Disposition: Standard PACU
[2025-07-09 13:06] VITALS: BMI 23.4
[2025-07-13 07:01] VITALS: BMI 24.5
[2025-07-13 07:10] VITALS: BP 109/87; PULSE 76; RESP 16; TEMP 36.9; O2SAT 96
[2025-07-13] MEDS: Lactated Ringers 1,000 ML 100 ML IVCONT (07:18)
--- NOTE | 2025-07-13 07:51 | MHC.SHP ---
Pre-Procedural Eval Section A - 24 Hr Update-Section A only Date of Service: 07/13/25 Section B - Complete if H&P > 30 days Chief Complaint: Noninfective gastroenteritis and colitis, Details of Present Illness: Screening PSA (prostate specific antigen) Low testosterone Abdominal pain Encounter for monitoring testosterone replacement therapy Upper abdominal pain Herpes simplex Rib pain on left side GERD (gastroesophageal reflux disease) Left inguinal hernia (04/26/24) Left groin hernia Constipation Depression with anxiety Asthma Colon cancer screening Pelvis, multiple open fractures with disruption of pelvic [place] Failed spinal cord stimulator Surgical History Status post inguinal hernia repair using synthetic patch Postop check History of esophagogastroduodenoscopy (EGD) H/O colonoscopy History of arthroscopy of right knee History of back surgery H/O pelvic surgery H/O enucleation of left eyeball Present Medications: see Short Stay Collaborative assessment Allergies: Allergies Allergy/AdvReac Type Severity Reaction Status Date / Time amitriptyline Allergy Severe Confusion Verified 06/21/25 16:09 morphine (MORPHINE) Allergy Severe CONSTIPATION, Verified 06/21/25 16:09 stomach upset ibuprofen (From MOTRIN) AdvReac Intermediate ABD PAIN Verified 06/21/25 16:09 cyclobenzaprine (From AdvReac Mild DRY MOUTH Verified 06/21/25 16:09 FLEXERIL) influenza H1N1 Allergy Intermediate Weakness Uncoded 04/28/25 14:32 Review of Systems Review of Systems Comment: Ten point ROS negative Exam Exam Comment: Gen appear: No acute distress HEENT: no icterus Chest: No overt resp distress Abd: soft, nontender, nondistended Psych: Stable affect, answering questions appropriately Neuro: A/Ox3 noted to move all extremities spontaneously Ext: no peripheral edema Plan Diagnosis/Plan: Unchanged I have reviewed the history and physical and performed a pertinent physical examination on my patient. No changes have occurred unless specified. Time Spent With Patient Time: Total time managing care of this patient today ____ minutes.
--- NOTE | 2025-07-13 09:16 | P.OPN-COLO_ITS ---
Colonoscopy Operative Note Operative Note Date of Service: 07/13/25 Narrative: Procedure: Colonoscopy Indication: Colitis Endoscopist: Joslyn Goodrich MD Anesthesia Provider: Dr Sage Anesthesia type: MAC Instrument: Olympus [id number]-H190L Consent: Indication, risks vs benefits, and alternatives were discussed with the patient who gave written informed consent to proceed. EKG, pulse, pulse oximetry and blood pressure were monitored throughout the procedure. Please see anesthesia flowsheet. Procedure: The patient was brought to the procedure room and placed in the left lateral decubitus position. IV medications were administered by the anesthesia provider in attendance. A digital rectal exam was performed which was abnormal due to finding of hemorrhoids. A distal attachment cap was affixed to the tip of the colonoscope which was then inserted through the anus and advanced through the colon to the cecum at 85 cm. Appendiceal orifice and ileocecal valve were identified. Mucosa was carefully examined under high definition white light as the instrument was slowly withdrawn in a retrograde panoramic fashion. Retroflexion was performed in rectum. The procedure was not difficult. There were no immediate obvious complications. The quality of the prep was BBPS: 2+1+2 = inadequate in Withdrawal time 18 minutes. Limitations: Poor prep Findings: Mucosa: Normal to cecum. Cold forceps biopsies were taken from R and L side of the colon to r/o microscopic colitis. Protruding lesions: * 2 sessile polyp of size 2-3 mm in ascending colon. Cold snare and forceps polypectomy was performed. The polyps were completely removed and retrieved. * Too numerous to count sessile hyperplastic appearing polyps in rectosigmoid measuring 4-8 mm. Out of these 5 representive polyps of size 4-7 mm in sigmoid colon were removed to evaluate for serrated polyposis syndrome (SPS). Cold snare polypectomy was performed. The polyps was completely removed and retrieved. * Large internal hemorrhoids with stigmata of recent bleeding. Excavated lesions: * Mild divericulosis of sigmoid colon. Impression: 1. Normal colon mucosa (biopsy) 2. Total of 7 polyps removed 3. Diverticulosis 4. External and internal hemorrhoids Recommendations: - Follow path results. - If sigmoid polyps are hyperplastic, recommend flex sig in 6 months for removal of >3 mm polyps as per SPS guidelines
[2025-07-13 09:23] VITALS: BP 102/73; PULSE 79; RESP 13; TEMP 36.2; O2SAT 99
[2025-07-13 09:38] VITALS: BP 120/87; PULSE 72; RESP 20; TEMP 36.5; O2SAT 100
== END 2025-07-13 10:11 | disposition home or self-care (01) ==
PROVIDERS: PCP Family Medicine; Visit Provider Internal Medicine
PROC: 0DJD8ZZ Inspection of Lower Intestinal Tract, Via Natural or Artificial Opening Endoscopic (ICD-10-PCS; CPT 45378; principal; 2025-07-13 08:30)
DX: K52.9 Noninfective gastroenteritis and colitis, unspecified (principal); K62.5 Hemorrhage of anus and rectum; R10.9 Unspecified abdominal pain; K57.30 Diverticulosis of large intestine without perforation or abscess without bleeding; K64.4 Residual hemorrhoidal skin tags; K64.8 Other hemorrhoids; D12.2 Benign neoplasm of ascending colon; K63.5 Polyp of colon
CPT/HCPCS: 45380; 45385; 88305; J2003; J2704

== ENCOUNTER → 2025-07-13 06:51 | Outpatient (BNV) | payer OTHER, SELFPAY | PROVIDERS: PCP Family Medicine; Visit Provider Internal Medicine | DX: K52.9 Noninfective gastroenteritis and colitis, unspecified (principal); K63.5 Polyp of colon; K57.30 Diverticulosis of large intestine without perforation or abscess without bleeding; K64.8 Other hemorrhoids | CPT/HCPCS: 45385 ==

== ENCOUNTER 2025-07-20 14:52 | Outpatient (AMB) | payer OTHER, SELFPAY ==
[2025-07-20 14:54] VITALS: BP 124/82; PULSE 63; BMI 24.1
--- NOTE | 2025-07-20 14:54 | MHC.OFFVIS ---
Vital Signs 07/20/25 14:54 Height 5 ft 2 in Weight 132 lb BMI 24.1 BP 124/82 Blood Pressure Location Rt brachial Position Sitting Pulse 63 Intake Visit Reasons: possible recurrent LIH (Joce) Intake Note: Patient scheduled today's appointment due bulging on Lt lower abdomen. Hx of LIH repair w/ Dr. Hobson 04-24-2024. Patient c/o: pain on Lt lower abdomen when coughing, sneezing. School Health Aide Required: No Accompanied by: spouse Sarah Husain Allergies amitriptyline Allergy (Severe, Verified 07/20/25 15:02) Confusion morphine (MORPHINE) Allergy (Severe, Verified 07/20/25 15:02) CONSTIPATION, stomach upset ibuprofen (From MOTRIN) Adverse Reaction (Intermediate, Verified 07/20/25 15:02) ABD PAIN cyclobenzaprine (From FLEXERIL) Adverse Reaction (Mild, Verified 07/20/25 15:02) DRY MOUTH influenza H1N1 Allergy (Intermediate, Uncoded 07/20/25 15:02) Weakness Medication List - Last Reconciled 07/20/25 by Rachid Murillo MD acetaminophen 500 mg PO Q6H PRN albuterol sulfate 90 mcg/actuation 2 puffs inhalation Q4-6H PRN alprazolam 0.5 mg PO DAILY PRN bisacodyl (Dulcolax (bisacodyl)) 10 mg (2 x 5 mg) PO BEDTIME 2 days cetirizine 10 mg PO QAM cholecalciferol (vitamin D3) 50 mcg PO DAILY famotidine (Pepcid) 40 mg PO BEDTIME hydrocortisone 2.5% (Proctosol HC) 1 appl AR BID L.acidoph,saliva-B.bif-S.therm 175 mg (Acidophilus Probiotic Blend) 1 cap PO DAILY metoclopramide HCl (Reglan) 5 mg PO QIDACHS omeprazole 20 mg PO BID 30 days oxycodone 15 mg PO TID PRN promethazine 6.25 mg (1/2 x 12.5 mg) PO TID PRN Held on 03/05/25. Instructions: Doctor's Order sennosides (senna) 17.2 mg (2 x 8.6 mg) PO BEDTIME valacyclovir 500 mg PO DAILY valsartan 40 mg PO DAILY HPI Comments Details: 49-year-old male with a remote history of an open left inguinal hernia repair presents for consideration of possible recurrence. Number the patient and his report that he feels a ?bulge? that slips ?in and out? with straining and coughing. He denies any obstructive symptoms. He had a CT scan of his abdomen and pelvis that was indicative of possible inflammatory bowel disease as well as possible fluid collection in the left inguinal canal. His only surgery that he has ever had in his abdomen and inguinal regions was an open left inguinal hernia repair. [facility] Medical History Screening PSA (prostate specific antigen) Low testosterone Abdominal pain Encounter for monitoring testosterone replacement therapy Upper abdominal pain Herpes simplex Rib pain on left side GERD (gastroesophageal reflux disease) Left inguinal hernia (04/26/24) Left groin hernia Constipation Depression with anxiety Asthma Colon cancer screening Pelvis, multiple open fractures with disruption of pelvic tonto apache Failed spinal cord stimulator Surgical History Status post inguinal hernia repair using synthetic patch Postop check History of esophagogastroduodenoscopy (EGD) H/O colonoscopy History of arthroscopy of right knee History of back surgery H/O pelvic surgery H/O enucleation of left eyeball Social History Are you a primary insurance healthcare consultant to a significant other at home: No Do you presently have visiting nurse or other home services: No Alcohol intake: never Comment: some gas pain/cramping intermittently. Patient Tobacco Use Status: Current everyday Tobacco user Tobacco use type: Cigarette Cigarette Packs Per Day: 0.5 Cigarettes Per Day: 10.0 Second Hand Smoke Exposure: No Review of Systems Const All systems reviewed & are unremarkable except as noted in HPI and below Physical Exam Vital Signs: Last Vital Signs Pulse 63 07/20/25 14:54 BP 124/82 07/20/25 14:54 BMI result Body Mass Index 24.1 Const General: cooperative, healthy appearing and comfortable Neck Neck: Yes normal visual inspection Chest Chest palpation & inspection: normal inspection of the chest Resp Other: Course bilateral upper respiratory sounds Effort & Inspection: normal respiratory effort and able to speak in complete sentences GI Other: Soft, not obese nontender nondistended. Open left inguinal scar. At the superior lateral aspect of the scar there is a small sliding hernia recurrence with deep cough. Proximally 2-3 cm in diameter. Assessment & Plan Assessment & Plan (1) Recurrent left inguinal hernia: Code(s): K40.91 - Unilateral inguinal hernia, without obstruction or gangrene, recurrent Category: Medical Plan: I offered the patient repair in the form of laparoscopic possible open left inguinal hernia repair with mesh. I reviewed with him in detail the risks that are involved. These include but are not limited to the risk of bleeding, the risk of infection, the risk of conversion to an open procedure, the risk of chronic pain the risk of hernia recurrence the risk of damage to surrounding structures including damage to the spermatic cord resulting in testicular compromise the risks that he might need further surgery in the future and the risk of unsightly scarring were all reviewed with him in detail. He told me that he understood. He told me that he considered the risks associated with surgery. He told me that he accepted the risks and described them as inherent to such an undertaking. Lastly he indicated that he wished to proceed with operative intervention for his recurrent left inguinal hernia. Coding Level of Care Code New Pt Level 3 (62776) Diagnoses Recurrent left inguinal hernia K40.91 Time Spent (min) 30 Comment Record review patient visit and coordination of care time
--- OUTSIDE RECORDS SUMMARY | 2025-07-20 16:08 | XMS_ITS | Encounter Summary ---
Author Organization [employer] Address [address] [facility] 7t [place] [address] Care Team Providers Care Supervisor Laboratory Name Role Phone Mely Vasquez MD Primary Care Provider [phone] Reason for Visit * Reason Onset Date Comments Med Refill 07/06/2025 Encounter Details Date Type Department Care Team ([facility] Contact Info) Description 07/06/2025 Telephone [facility] MED[facility] [address] [place], [place] [phone] Mely Vasquez MD [address] [place], [place] [phone] Med Refill Social History Tobacco Use Types [...] encounter Miscellaneous Notes * Telephone Encounter - Glo Meraz - 07/06/2025 11:50 AM EST TC from pt requesting medication refill. Medications needing refill : oxyCODONE (Roxicodone) 15 MG immediate release tablet To be sent to: [facility]/pharmacy #[id number] [place] [address] documented in this encounter Plan of Treatment Upcoming Encounters Date Type Department Care Team (Late st Contact Info) Description 07/26/2025 1:45 PM EST Office Visit [facility] [address] [place] [address] Mely Vasquez MD [address] [place] [address] 10/05/2025 11:00 AM EDT Office Visit [facility] [address] [place] [address] documented as of this encounter Visit Diagnoses Not on filedocumented in this encounter Additional Health Concerns Assessment Noted Time PHQ-9 Depression Total Score: 9 12/30/19 25 1:30 PM EDT documented as of this encounter Care Teams Supervisor Laboratory Relationship Specialty Start Date End Date Mely Vasquez MD [address] [place] [address] PCP - General Family Medicine 05/11/21 documented as of this encounter
--- OUTSIDE RECORDS SUMMARY | 2025-07-20 16:08 | XMS_ITS | Encounter Summary ---
Author Organization [employer] Address [address] [place] [address] 7 [place] [address] Care Team Providers Care Engineering Document Control Clerk Name Role Phone Mely Vasquez MD Primary Care Provider Reason for Visit * Reason Onset Date Comments Med Refill 04/22/2023 Encounter Details Date Type Department Care Team ([facility] Contact Info) Description 04/22/2023 Telephone [facility] [address] [place], [place] [phone] Mely Vasquez MD [address] [place], [place] [phone] Med Refill Social History Tobacco Use Types [...] Description 07/26/2025 1:45 PM EST Office Visit [address] [address] Mely Vasquez MD [address] [place] [address] 10/05/2025 11:00 AM EDT Office Visit [facility] [address] [place] [address] documented as of this encounter Visit Diagnoses Not on filedocumented in this encounter Additional Health Concerns Assessment Noted Time PHQ-9 Depression Total Score: 0 02/27/20 23 3:09 PM EDT documented as of this encounter Care Teams Engineering Document Control Clerk Relationship Specialty Start Date End Date Mely Vasquez MD [address] [place] [address] PCP - General Family Medicine 05/11/21 documented as of this encounter
--- OUTSIDE RECORDS SUMMARY | 2025-07-20 16:08 | XMS_ITS | Encounter Summary ---
Author Organization [employer] Address [address] [facility] 7t [place] [address] Care Team Providers Care Clinical Biostatistician Name Role Phone Mely Vasquez MD Primary Care Provider [phone] Reason for Visit * Reason Onset Date Comments Med Refill 01/02/2024 Encounter Details Date Type Department Care Team ([facility] Contact Info) Description 01/02/2024 Telephone [facility] [address] [place], [place] [phone] Mely Vasquez MD [address] [place], [place] [phone] Med Refill Social History Tobacco Use Types [...] release tablet To be sent to: [facility]/PHARMACY #[id number] [place] [address] - [address] [place] [address] documented in this encounter Plan of Treatment Upcoming Encounters Date Type Department Care Team (Late st Contact Info) Description 07/26/2025 1:45 PM EST Office Visit [facility] [address] [place] [address] Mely Vasquez MD [address] [place] [address] 10/05/2025 11:00 AM EDT Office Visit [facility] [address] [place] [address] documented as of this encounter Visit Diagnoses Not on filedocumented in this encounter Additional Health Concerns Assessment Noted Time PHQ-9 Depression Total Score: 0 02/27/20 23 3:09 PM EDT documented as of this encounter Care Teams Clinical Biostatistician Relationship Specialty Start Date End Date Mely Vasquez MD [address] [place] [address] PCP - General Family Medicine 05/11/21 documented as of this encounter
--- OUTSIDE RECORDS SUMMARY | 2025-07-20 16:08 | XMS_ITS | Encounter Summary ---
Author Organization [employer] Address [address] [place] [address] 7 [place] [address] Care Team Providers Care Heel Builder Name Role Phone Mely Vasquez MD Primary Care Provider [phone] Reason for Referral * Consultation (Routine) - Closed Specialty Diagnoses / Procedures Referred By Contteagan t Referred To Contact Urology Diagnoses Benign prostatic hyperplasia, unspecified whether lower urinary tract symptoms present Mely Vasquez MD [address] [place] [address] Phone: tel: fax: [facility] Referral ID Status Reason Start Date Expiration Date V isits Requested Visits Authorized [id number] Closed Specialty Services Required 11/22/2023 11/21/2024 1 1 Encounter Details Date Type Department Care Team (Late st Contact Info) Description 11/22/2023 Orders Only [facility] MED[facility]INE [address] [place] [address] [phone] Mely Vasquez MD [address] [place] [address] [phone] Benign prostatic hyperplasia, unspecified whether lower urinary [...] Description 07/26/2025 1:45 PM EST Office Visit [address] [address] Mely Vasquez MD [address] [place] [address] 10/05/2025 11:00 AM EDT Office Visit [address] [phone] Scheduled Referrals Name Type Priority Associated Diagnoses [...] Total 522 250 - 1100 ng/dL [facility] Comment:For additional infor mation, please refer [email or web address](This link is being provided for informational/educational purposes only.)This test was developed and its analytical performancecharacteristics have been determined by [employer] [place], [place]. It hasnot been cleared or approved by the U.S. Food and DrugAdministration. This assay has been validated pursuantto the CLIA regulations and is used for clinicalpurposes.THIS TEST WAS PERFORMED AT:[employer] [place] [address]BHYVVJZMARYSOL PANTOJA MD,PHD Blood Venous blood specimen / Unknown 12/02/2023 1:02 PM EDT 12/02/2023 4:10 PM EDT us Mely Vasquez MD LAB BLOOD ORDERABLES Final Resul t [facility] [address] [place] [address] [phone] * PSA,Total (12/02/2023 1:02 PM EDT) Prostate Specific Antigen 0.50 <0.05 - 4.0 ng/mL [facility] Comment:PSA methodology: Abb marielle Alinity i ChemiluminescentMicroparticle Immunoassay (CMIA) Blood Venous blood specimen / Unknown 12/02/2023 1:02 PM EDT 12/02/2023 4:10 PM EDT Mely Vasquez MD LAB BLOOD ORDERABLES Final Resul t [facility] [address] [place] [address] [phone] documented in this encounter Visit Diagnoses Diagnosis Benign prostatic hyperplasia, unspecified whether lower urinary tract symptoms present- Primary documented in this encounter Additional Health Concerns Assessment Noted Time PHQ-9 Depression Total Score: 0 02/27/20 23 3:09 PM EDT documented as of this encounter Care Teams Heel Builder Relationship Specialty Start Date End Date Mely Vasquez MD [address] [place] [address] PCP - General Family Medicine 05/11/21 documented as of this encounter
--- OUTSIDE RECORDS SUMMARY | 2025-07-20 16:08 | XMS_ITS | Encounter Summary ---
Author Organization [employer] Address [address] [place] [address] 7 [place] [address] Care Team Providers Care Labor Relations Analyst Name Role Phone Mely Vasquez MD Primary Care Provider [phone] Reason for Visit * Reason Onset Date Comments Appointment Request 01/31/2023 Encounter Details Date Type Department Care Team (Late Contact Info) Description 01/31/2023 Telephone [facility] [address] [place], [place] [phone] Mely Vasquez MD [address] [place] [address] Appointment Request Social History Tobacco Use Types [...] from pt requesting to r/s appt from [employer] on 02/04/2023 due to being out of state. Please contact pt at [phone] documented in this encounter Plan of Treatment Upcoming Encounters Date Type Department Care Team (Late Contact Info) Description 07/26/2025 1:45 PM EST Office Visit [address] [address] [place] [address] 10/05/2025 11:00 AM EDT Office Visit [address] [address] documented as of this encounter Visit Diagnoses Not on filedocumented in this encounter Care Teams Labor Relations Analyst Relationship Specialty Start Date End [place] [address] PCP - General Family Medicine 05/11/21 documented as of this encounter
--- OUTSIDE RECORDS SUMMARY | 2025-07-20 16:08 | XMS_ITS | Encounter Summary ---
Author Organization [employer] Address 75 [facility] 7t [place] [address] Care Team Providers Care Appliance Parts Counter Clerk Name Role Phone Mely Vasquez MD Primary Care Provider [phone] Reason for Visit * Reason Onset Date Comments Med Refill 05/21/2023 Encounter Details Date Type Department Care Team ([facility] Contact Info) Description 05/21/2023 Telephone [facility] MED[facility]INE [address] [place], [place] [phone] Mely Vasquez MD [address] [place], [place] [phone] Med Refill Social History Tobacco Use Types [...] immediate release tablet, pt stated went to [facility] and the store has 40, pt is requesting order of 44 to be send [facility]. documented in this encounter Plan of Treatment Upcoming Encounters Date Type Department Care Team (Late st Contact Info) Description 07/26/2025 1:45 PM EST Office Visit [facility] [address] [place] [address] Mely Vasquez MD [address] [place] [address] 10/05/2025 11:00 AM EDT Office Visit [facility] [address] [place] [address] documented as of this encounter Visit Diagnoses Not on filedocumented in this encounter Additional Health Concerns Assessment Noted Time PHQ-9 Depression Total Score: 0 02/27/20 23 3:09 PM EDT documented as of this encounter Care Teams Appliance Parts Counter Clerk Relationship Specialty Start Date End Date Mely Vasquez MD [address] [place] [address] PCP - General Family Medicine 05/11/21 documented as of this encounter
--- OUTSIDE RECORDS SUMMARY | 2025-07-20 16:08 | XMS_ITS | Encounter Summary ---
Author Organization [employer] Address [address] [facility] 7t [place] [address] Care Team Providers Care Gun Repair Clerk Name Role Phone Mely Vasquez MD Primary Care Provider [phone] Reason for Visit * Reason Onset Date Comments Med Refill 01/11/2025 Encounter Details Date Type Department Care Team ([facility] Contact Info) Description 01/11/2025 Telephone [facility] [address] [place], [place] [phone] Mely Vasquez MD [address] [place], [place] [phone] Med Refill Social History Tobacco Use Types [...] one week supply. To be sent to: [facility]/pharmacy #[id number] documented in this encounter Plan of Treatment Upcoming Encounters Date Type Department Care Team (Late st Contact Info) Description 07/26/2025 1:45 PM EST Office Visit [facility] [address] [place] [address] Mely Vasquez MD [address] [place] [address] 10/05/2025 11:00 AM EDT Office Visit [facility] [address] [place] [address] documented as of this encounter Visit Diagnoses Not on filedocumented in this encounter Additional Health Concerns Assessment Noted Time PHQ-9 Depression Total Score: 9 12/30/19 25 1:30 PM EDT documented as of this encounter Care Teams Gun Repair Clerk Relationship Specialty Start Date End Date Mely Vasquez MD [address] [place] [address] PCP - General Family Medicine 05/11/21 documented as of this encounter
--- OUTSIDE RECORDS SUMMARY | 2025-07-20 16:08 | XMS_ITS | Encounter Summary ---
Author Organization [employer] Address [address] [facility] 7t [place] [address] Care Team Providers Care Night Time Babysitter Name Role Phone Mely Vasquez MD Primary Care Provider [phone] Reason for Visit * Reason Onset Date Comments FYI 05/15/2023 Encounter Details Date Type Department Care Team ([facility] Contact Info) Description 05/15/2023 Telephone [facility] [address] [place], [place] [phone] Mely Vasquez MD [address] [place], [place] [phone] FYI Social History Tobacco Use Types Packs/Day [...] pt got an appt for 05/24/2023 at [facility] for lumbar pain. documented in this encounter Plan of Treatment Upcoming Encounters Date Type Department Care Team (Late st Contact Info) Description 07/26/2025 1:45 PM EST Office Visit [facility] [address] [place] [address] Mely Vasquez MD [address] [place] [address] 10/05/2025 11:00 AM EDT Office Visit [facility] [address] [place] [address] documented as of this encounter Visit Diagnoses Not on filedocumented in this encounter Additional Health Concerns Assessment Noted Time PHQ-9 Depression Total Score: 0 02/27/20 23 3:09 PM EDT documented as of this encounter Care Teams Night Time Babysitter Relationship Specialty Start Date End Date Mely Vasquez MD [address] [place] [address] PCP - General Family Medicine 05/11/21 documented as of this encounter
--- OUTSIDE RECORDS SUMMARY | 2025-07-20 16:08 | XMS_ITS | Encounter Summary ---
Author Organization [employer] Address 75 [facility] 7t [place] [address] Care Team Providers Care Machine Installer Name Role Phone Mely Vasquez MD Primary Care Provider [phone] Reason for Visit * Reason Onset Date Comments Med Refill 05/03/2025 Encounter Details Date Type Department Care Team ([facility] st Contact Info) Description 05/03/2025 Refill [facility] [address] [place], [place] [phone] Mely Vasquez MD [address] [place] [address] Lumbar disc disease Social History Tobacco Use [...] Description 07/26/2025 1:45 PM EST Office Visit [address] [address] Mely Vasquez MD [address] [place] [address] 10/05/2025 11:00 AM EDT Office Visit [address] [address] documented as of this encounter Visit Diagnoses Diagnosis Lumbar disc disease Other and unspecified disc disorder of lumbar region documented in this encounter Additional Health Concerns Assessment Noted Time PHQ-9 Depression Total Score: 9 12/30/19 25 1:30 PM EDT documented as of this encounter Care Teams Machine Installer Relationship Specialty Start Date End Date Mely Vasquez MD [address] [place] [address] PCP - General Family Medicine 05/11/21 documented as of this encounter
--- OUTSIDE RECORDS SUMMARY | 2025-07-20 16:08 | XMS_ITS | Clinical Summary ---
Author Organization [employer] [facility] Address [address] [place] [address] Care Team Providers Care Cruise Agent Name Role Phone Unavailable Primary Care Provider [...]
--- OUTSIDE RECORDS SUMMARY | 2025-07-20 16:08 | XMS_ITS | Encounter Summary ---
Author Organization [employer] Address 75 [facility] 7t [place] [address] Care Team Providers Care Science Editor Name Role Phone Mely Vasquez MD Primary Care Provider [phone] Reason for Visit * Reason Onset Date Comments Med Refill 01/28/2024 Encounter Details Date Type Department Care Team ([facility] st Contact Info) Description 01/28/2024 Telephone [facility] MED[facility]INE 230 [place], [place] [phone] Mely Vasquez MD [address] [place], [place] [phone] Med Refill Social History Tobacco Use Types [...] immediate release tablet To be sent to: [facility]/pharmacy #[id number] [place] [address] - [address] [place] [address] documented in this encounter Plan of Treatment Upcoming Encounters Date Type Department Care Team (Late st Contact Info) Description 07/26/2025 1:45 PM EST Office Visit [facility]INE [address] [place] [address] Mely Vasquez MD [address] [place] [address] 10/05/2025 11:00 AM EDT Office Visit [facility] [address] [place] [address] documented as of this encounter Visit Diagnoses Not on filedocumented in this encounter Additional Health Concerns Assessment Noted Time PHQ-9 Depression Total Score: 0 02/27/20 23 3:09 PM EDT documented as of this encounter Care Teams Science Editor Relationship Specialty Start Date End Date Mely Vasquez MD [address] [place] [address] PCP - General Family Medicine 05/11/21 documented as of this encounter
--- OUTSIDE RECORDS SUMMARY | 2025-07-20 16:08 | XMS_ITS | Encounter Summary ---
Author Organization [employer] Address [address] [facility] 7t [place] [address] Care Team Providers Care Remelt Pan Tank Operator Name Role Phone Mely Vasquez MD Primary Care Provider [phone] Reason for Visit * Reason Onset Date Comments Med Refill 01/01/2024 Encounter Details Date Type Department Care Team ([facility] Contact Info) Description 01/01/2024 Telephone [facility] MEDICINE [address] [place], [place] [phone] Mely Vasquez MD [address] [place], [place] [phone] Med Refill Social History Tobacco Use Types [...] to: [facility]/pharmacy #[id number] [place] [address] - [address] [place] [address] documented in this encounter Plan of Treatment Upcoming Encounters Date Type Department Care Team (Late st Contact Info) Description 07/26/2025 1:45 PM EST Office Visit [facility] MEDICINE [address] [place] [address] Mely Vasquez MD [address] [place] [address] 10/05/2025 11:00 AM EDT Office Visit [facility] MEDICINE [address] [place] [address] documented as of this encounter Visit Diagnoses Not on filedocumented in this encounter Additional Health Concerns Assessment Noted Time PHQ-9 Depression Total Score: 0 02/27/20 23 3:09 PM EDT documented as of this encounter Care Teams Remelt Pan Tank Operator Relationship Specialty Start Date End Date Mely Vasquez MD [address] [place] [address] PCP - General Family Medicine 05/11/21 documented as of this encounter
--- OUTSIDE RECORDS SUMMARY | 2025-07-20 16:08 | XMS_ITS | Clinical Summary ---
Author Organization [employer] Address [address] [place] [address] 7t [place] [address] Care Team Providers Care Premium Representative Name Role Phone Mely Vasquez MD Primary Care Provider [phone] Allergies Active Allergy Reactions Criticality Noted Date [...] reversal. 2 each 1 05/03/20 25 Active oxyCODONE (Roxicodone) 15 MG immediate release tabletIndicati ons:Lumbar disc disease Take 1 tablet (15 mg) by mouth every 8 (eight) hours if needed (pain) for up to 28 days. 84 tablet 07/06/20 25 2025 Active Nicotine (Nicotrol NS) 10 MG/ML solution SPRAY ONCE IN EACH NOSTRIL UP TO 5 TIMES PER HOUR, NOT TO EXCEED 40 TIMES A DAY 10 mL 3 07/07/20 Active Nicotine (Nicotrol NS) 10 MG/ML solution SPRAY ONCE IN EACH NOSTRIL UP TO 5 TIMES PER HOUR, NOT TO EXCEED 40 TIMES A DAY 40 mL 3 05/04/20 25 2024 Discontinued oxyCODONE (Roxicodone) 15 MG immediate release tabletIndicati ons:Lumbar disc disease Take 1 tablet (15 mg) by mouth every 8 (eight) hours if needed (pain) for up to 28 days. Do not start before May 31, 2025. 84 tablet 05/31/20 25 2024 Discontinued(R eorder (will not trigger notification to Pharmacy)) oxyCODONE (Roxicodone) 15 MG immediate release tabletIndicati ons:Lumbar disc disease Take 1 tablet (15 mg) by mouth every 8 (eight) hours if needed (pain) for up to 11 days. Do not start before June 26, 2025. 33 tablet 06/26/20 25 2024 Discontinued(R eorder (will not trigger notification to Pharmacy)) Active Problems Problem Noted Date Diagnosed Date Erectile dysfunction 04/04/2025 Assessment & Plan (04/04/2025 11:55 AM EDT): - Following with [facility] urology, last seen February 2025 - Continue tadalafil as prescribed Hypogonadism in male 04/04/2025 Assessment & Plan (04/04/2025 11:48 AM EDT): - Following with [facility] urologist, last seen in February 2025 - Continue testosterone as prescribed Colitis 04/04/2025 Assessment & Plan (04/04/2025 12:07 PM EDT): - Patient has already completed her antibiotic treatment (metronidazole and quinolone), and now is on another course of antibiotic (Augmentin). -Status post systemic steroid treatment - Continue metoclopramide as prescribed by GI - Continue following with [facility] GI At risk for nutrition deficiency 01/11/2025 [...] disease, postlaminectomy syndrome of lumbar region Last TECHNICAL SERVICE SPECIALIST Agreement: 02/16/25 Tier: 2.5 (Internal Auditor Q3-4 mo) - eval by PCP December 2024 Assessment & Plan (07/06/2025 8:30 PM EST): Timeline: - 02/16/25: Initial group visit, utox/pill count as expected - 07/06/25: Group visit, utox/pill count as expected Assessment & Plan (02/16/2025 2:16 PM EDT): [...] 11:58 AM EDT): - seen by urologist, [facility] - previously on tamsulosin, but patient states he was prescribed tamsulosin for a short-term only. Assessment & Plan (12/29/2024 1:12 PM EDT): - seen by urologist, [facility] - patient states he was prescribed tamsulosin for a short-term only. Will check the treatment plan - tamsulosin will help his BP as well Assessment & Plan (08/03/2024 3:19 PM EST): - seen by urologist, [facility] - patient states he was prescribed tamsulosin for a short-term only. Will check the treatment plan - tamsulosin will help his BP as well Assessment & Plan (04/10/2024 6:39 AM EDT): - seen by urologist, [facility] - patient states he was prescribed tamsulosin [...] enucleation - evaluated by ocular specialist and thermal cutting machine operator - treatment will not be covered by [...] ENT - consider evaluation by allergy / human services care specialist for allergy test / immunotherapy. Assessment & Plan (12/27/2022 12:16 PM EDT): - continue montelukast - restart cetirizine - consider contracting support specialist for allergy testing / immunotherapy Chronic [...] Assessment & Plan (04/04/2025 12:02 PM EDT): -[facility] provider: ANA LAURA -Psychiatrist: Dr. Chavarria -Clinician: Previously Elyssa Serrano, [...] preferred alprazolam - continue following with current [facility] provider Assessment & Plan (02/27/2023 6:34 AM EDT): -[facility] provider: [facility] -Psychiatrist: Dr. Chavarria -Clinician: Previously Elyssa [...] higher dose - continue following with current [facility] provider Assessment & Plan (12/18/2022 2:48 PM EDT): -[facility] provider: [facility] -Psychiatrist: Dr. Chavarria -Clinician: Previously Elyssa Serrano, but pt does not have one currently -Evaluated by Nicko from [facility] -Pt has an upcoming appt with [...] (04/04/2025 12:08 PM EDT): - Followed by [facility] GI, last seen in February 2025 - EGD in Feb 2024, small hiatal hernia and minimal gastritis - Continue Omeprazole 20mg BID - work on smoking cessation - avoid NSAIDs - H. Pylori test was negative in October 2023 Assessment & Plan (12/29/2024 1:12 PM EDT): - Followed by [facility] GI, last seen in May 2024, upcoming follow up appointment in Jul 2024 - EGD in Feb 2024, small hiatal hernia and minimal gastritis - Continue Omeprazole 20mg BID - work on smoking cessation - avoid NSAIDs - H. Pylori test was negative in October 2023 Assessment & Plan (08/09/2024 10:38 AM EST): - Followed by [facility], last seen in May 2024, upcoming follow up appointment in Jul 2024 - EGD in Feb 2024, small hiatal hernia and minimal gastritis - Continue Omeprazole 20mg BID - work on smoking cessation - avoid NSAIDs - H. Pylori test was negative in October 2023 Assessment & Plan (04/07/2024 2:23 PM EDT): - Followed by [facility] GI, last seen in November 2023 - Continue Omeprazole 20mg BID - work on smoking cessation - avoid NSAIDs - H. Pylori test was negative in October 2023 Assessment & Plan (12/24/2023 4:41 PM EDT): - Followed by [facility] GI, last seen in November 2023 - Continue Omeprazole 20mg BID - work on smoking cessation - avoid NSAIDs - H. Pylori test was negative in October 2023 Assessment & Plan (08/25/2023 4:45 PM EST): - Followed by [facility], last seen in Jun 2023 - Continue Omeprazole 20mg BID - work on smoking cessation - avoid NSAIDs Assessment & Plan (12/18/2022 2:52 PM EDT): Seen by , NOVEMBER 2022 -Rx Omeprazole 20mg BID -cont current tx plan -work on smoking cessation -avoid NSAIDs Blurry vision, right eye 12/18/2022 Assessment & Plan (08/25/2023 4:55 PM EST): - seen by thermal cutting machine operator in Mar 2023 - dry eye - [...] Lumbar disc disease 11/05/2022 Assessment & Plan (07/06/2025 8:30 PM EST): -Good engagement and participation with Group Medical Visit model, today was first visit. -Encouraged multifactorial approach to pain control including pharm and non- pharm modalities -UTOX and Pill count as expected Assessment & Plan (02/16/2025 2:14 PM EDT): [...] stimulator removed on 09/26/[address] Beasley ([facility]). It was placed 7-8 years ago [...] post-laminectomy syndrome. -Continue judicious use of oxycodone -TECHNICAL SERVICE SPECIALIST agreement is up to date - Follow up in 3-4 mo or sooner prn Assessment & Plan (02/27/2023 6:20 AM EDT): - on chronic opioid treatment with oxycodone 15 mg q8 hours since 07/17/2017. - Nerve stimulator removed on 09/26/[address] Beasley ([facility]). It was placed 7-8 years ago [...] of arachnoiditis. -Continue judicious use of oxycodone -TECHNICAL SERVICE SPECIALIST agreement is up to date - Follow up in 3 mo or sooner prn - recent exacerbation in pain; adding celecoxib for short-term Assessment & Plan (12/18/2022 2:40 PM EDT): -He's on chronic opioid of oxycodone 15 mg q8 hours since 07/17/2017. -Nerve stimulator removed on 09/26/[address] Beasley ([facility]). It was placed 7-8 years ago [...] of arachnoiditis. -Continue judicious use of oxycodone -TECHNICAL SERVICE SPECIALIST agreement review is up to date [...] (12/24/2023 4:39 PM EDT): - following with [facility], last seen on 12/18/23 - plan to evaluate with EGD and abdominal US - continue omeprazole and sucralfate Colon cancer screening 12/19/202308/09 Acute upper respiratory infection 12/13/2022 02/26/2023 Encounters * This document contains information received from the source organization and may not represent a complete record from that organization. Date Type Department Care Team Description 07/20/2025 Refill [facility] MEDICINE [address] [place] [address] Mely Vasquez MD 07/19/2025 Travel 07/13/2025 Orders Only GENERIC EXTERNAL DATA DEPARTMENT Provider, Generic External Data 07/06/2025 11:00 AM EST Office Visit [facility] MEDICINE [address] [place] [address] Loree Mcclendon FNP Lumbar disc disease (Primary Dx); Long-term current use of opiate analgesic 07/06/2025 Refill [facility] MEDICINE [address] [place] [address] Mely Vasquez MD 07/06/2025 Refill [facility] [address] [place] [address] Liset Cage, APARNA Lumbar disc disease 07/06/2025 Telephone [facility] MEDICINE [address] [place] [address] Mely Vasquez MD Med Refill 07/05/2025 Travel 06/22/2025 Refill [facility] [address] [place] [address] Liset Cage RN Lumbar disc disease 06/22/2025 Telephone [facility] MEDICINE [address] [place] [address] Mely Vasquez MD Med Refill 05/28/2025 Refill [facility] [address] [place] [address] Liset Cage, RN Lumbar disc disease 05/28/2025 Telephone [facility] MED[facility]INE [address] [place] [address] Mely Vasquez MD Med Refill 05/26/2025 Telephone [facility] [address] [place] [address] Liset Cage, RN 05/24/2025 Telephone [facility] MED[facility]INE [address] [place] [address] Mely Vasquez MD Nurse Triage 05/03/2025 Refill [facility] MED[facility]INE [address] [place] [address] Mely Vasquez MD 05/03/2025 Refill [facility] [address] [place] [address] Mely Vasquez MD Lumbar disc disease 05/03/2025 Refill [facility] [address] [place] [address] Liset Cage, RN Lumbar disc disease 05/03/2025 Telephone [facility] MEDICINE [address] [place] [address] Mely Vasquez MD Med Refill 04/20/2025 Telephone [facility] MEDICINE [address] [place] [address] Mely Vasquez MD Paperwork/Forms from Last 3 Months Immunizations Immunization Administration [...] Description 07/26/2025 1:45 PM EST Office Visit [address] [address] Mely Vasquez MD [address] [place] [phone] 10/05/2025 11:00 AM EDT Office Visit [address] [address] Health Maintenance Due Date Last Done Comments CT Colonography 1975 Dental Oral Exam 1975 Dental Prophylaxis 1975 Dental X-Ray: Full Mouth 1975 FIT DNA/Cologuard 1975 FIT 1975 FOBT 1975 Sigmoidoscopy 1975 Family Planning (PISQ) 12/21/1990 Hepatitis C Screening 12/21/1993 Dental X-Ray: Bitewings 09/14/2024 09/13/2023 COVID-19 Vaccine ( - 2024-2 6 season) 2025 06/12/2021, 12/10/2020, 11/12/2020 Influenza Vaccine (#1) 2025 Hepatitis B Vaccines (3 of 3 - 19+ 3-dose series) 05/25/2025 03/30/2025, 08/03/2024 Depression Monitoring 06/30/2025 12/29/2024 , 12/29/2024 Alcohol/Substance Use Screening 08/03/2025 08/03/2024 Zoster Vaccines (1 of 2) 12/21/2025 SDOH Screening 12/29/2025 12/29/2024 Tobacco Screening 03/30/2026 03/30/2025 Disability Screening 07/19/2026 07/19/2025 Colonoscopy 10/10/2027 10/09/2022 Colorectal Cancer Screening 10/10/2027 [...] Procedure Name Priority Date/Time Associated Diagnosis Comments HEMATOXYLIN AND EOSIN STAIN Routine 07/13/2025 9:00 AM EST POCT CHARLY-14 URINE DRUG SCREEN Routine 07/06/2025 12:32 PM EST Long-term current use of opiate analgesic LIPID PANEL WITH REFLEX TO DIRECT LDL Routine 01/14/2025 1:55 PM EDT Hypertriglyceridemi a BITEWING - SINGLE RADIOGRAPHIC IMAGE Routine 09/13/2023 1:00 PM EST HM COLONOSCOPY Routine 10/09/2022 Jose MiguelZZ HISTORICAL HIV AB/AG Routine 04/27/2022 2:42 PM EDT from Last 3 Months or Most Recently Relevant to Health Maintenance Results * Hematoxylin and Eosin Stain (07/13/2025 9:00 AM EST) 07/13/2025 9:00 AM EST 07/13/2025 9:38 AM EST [facility] - 07/14/2025 1:22 PM EST ----- ------- Name: Hosea Stoner Age/Sex: 49/M : 1975 Unit#: [id number] Attend Dr: Joslyn Goodrich MD Re07/13/25 Status: [facility] Location: [facility] Disch: ----- ------- SPEC : [id number] RECD: 07/13/25 STATUS: LEO MATTA NUM: [id number] [place]: 07/13/25 [facility] DR: Joslyn Goodrich MD ENTERED: 07/13/25-1029 SP TYPE: Surgical OTHR DR: Mely Vasquez MD ORDERED: HE Stain/12, Gross Micro L4/4 Diagnosis A. Colon, ascending, 2 polyps: Tubular adenoma (1 piece); negative for high-grade dysplasia and carcinoma, and colonic mucosa (1 piece) with no specific change. B. Colon, right, biopsy: Colonic mucosa with lymphoid aggregates and no specific change; no colitis, granulomas or dysplasia. C. Colon, left, biopsy: Colonic mucosa with lymphoid aggregates and no specific change; no colitis, granulomas or dysplasia. D. Colon, sigmoid, 5 polyps: Hyperplastic polyps (3 pieces); and colonic mucosa (2 pieces) with no specific change. Clinical History Pre-Op Dx: Noninfective gastroenteritis and colitis Post-Op Dx: External hemorrhoids, polyps, diverticulosis Microscopic Description Microscopic sections reviewed. Material Received A. Ascending colon polyps x2 (3mm) B. Right sided colon bxs C. Left sided colon bxs D. Sigmoid colon polyps x5 (3-7mm) Gross Description A. Received in formalin, labeled ascending colon polyp , are 2 irregular rust mucosal tissue fragments, measuring 0.3 cm and 1.2 cm in greatest dimension, which are submitted in toto in 1 cassette. B. Received in formalin, labeled right-sided colon biopsy , are 3 irregular rust mucosal tissue fragments, each measuring approximately 0.2 cm in greatest dimension, which are wrapped in paper and submitted in toto in 1 cassette. C. Received in formalin, labeled left-sided colon biopsy , are 4 irregular rust mucosal tissue fragments, ranging from 0.1 cm to 0.3 cm in greatest dimension, which are submitted in toto in 1 cassette. D. Received in formalin, labeled sigmoid colon polyps , are 5 irregular rust mucosal tissue fragments, ranging from 0.2 cm to 0.9 cm in greatest dimension, which are submitted in toto in 1 cassette. (FAUSTINO) CONTINUED ON NEXT PAGE ----- ------- Name: Hosea Stoner Age/Sex: 49/M : 1975 Unit#: [id number] Attend Dr: Joslyn Goodrich MD Re07/13/25 Status: [facility] Location: [facility] Disch: ----- ------- SPEC : [id number] RECD: 07/13/25 STATUS: LEO MATTA NUM: [id number] [place]: 07/13/25 [facility] [address]: Joslyn Goodrich MD ENTERED: 07/13/25-1028 SP TYPE: Surgical OTHR DR: Mely Vasquez MD ORDERED: HE Stain/12, Gross Micro L4/4 IHC S/NG Disclaimer NOTE: Unless otherwise stated, all tissue is formalin-fixed and paraffin-embedded. Some or all of the immunohistochemical tests reported herein may have been developed and their performance characteristics determined by [facility]. They have not been cleared or approved by the U.S. Food and Drug Administration (FDA). However, the FDA has determined that such clearance or approval is not necessary. This laboratory is certified under the Clinical Laboratory Improvement Amendments of 1988 (CLIA) as qualified to perform high complexity clinical laboratory testing. Copies To: Mely Vasquez MD [address] [address] Joslyn Goodrich MD [facility] [address] [place] [phone] [email or web address] ----- ------- Signed (signature on file) Monse Jim MD 07/14/25 1322 ----- ------- END OF REPORT Generic External Data Provider LAB BLOOD ORDERAB LES Final Result [facility] [address] [place] [phone] * (ABNORMAL) POCT CHARLY-14 Urine Drug Screen (07/06/2025 12:32 PM EST) Pathologist [facility] THC Negative Negative Cocaine Screen, Urine Negative Negative Opiate Screen, Urine Negative Negative Methamphetamine Screen Urine Negative Negative Amphetamine Screen, Urine Negative Negative Benzodiazepines Screen, Urine Negative Negative Barbiturate Screen, Urine Negative Negative Methadone Screen, Urine Negative Negative Buprenophine Screen, Urine Negative Negative TCA, Urine Negative Negative MDMA Urine Negative Negative ng/mL Oxycodone Screen, Urine Positive(A) Negative Comment:Rx Phencyclidine (PCP), Urine Negative Negative Propoxyphene, Urine Negative Negative Fentanyl, Urine Negative Negative Urine Urine specimen obtained by clean catch procedure / Unknown 07/06/2025 12:32 PM EST Narrative Liset Cage RN - 07/06/2025 12:32 PM EST .UTOX cup Lot#[id number] Exp. 06/28/26 Internal Pass Control Loree MIR POINT OF CARE TEST ENTER/EDIT ORDERABLES Final Result * (ABNORMAL) Lipid Panel with Reflex to Direct LDL (01/14/2025 1:55 PM EDT) Pathologist [facility] Triglycerides 106 <150 mg/dL [facility] Comment:Desirable Triglyceri de: less than 150 mg/dLBorderline High Triglyceride 150-199 mg/dLHigh Triglyceride: 200-499 mg/dLVery High Triglyceride: greater than or equal to 5OO mg/dL Cholesterol 136 <200 mg/dL [facility] Comment:Desirable Cholestero l: less than 200 mg/dLBorderline High Cholesterol: 200-239 mg/dLHigh Cholesterol: greater than 239 mg/dL LDL Cholesterol Calculated 77 <100 mg/dL [facility] Comment:Desirable LDL: less than 100 mg/dLNear Optimal/Above Optimal LDL: 110- 129 mg/dLBorderline High LDL: 130-159 mg/dLHigh LDL: 160-189 mg/dLVery High LDL: greater than or equal to 190 mg/dL HDL Cholesterol 38(L) >40 mg/dL [facility] Comment:Desirable HDL: great er than 40 mg/dL Note: This HDL assay may give artificially low results in patients with liver disease. Blood 01/14/2025 1:55 PM EDT 01/14/2025 1:55 PM EDT Mely Vasquez MD LAB BLOOD ORDERABLES Final Resul t [facility] [address] [place] [phone] * Hm Colonoscopy (10/09/2022) [facility] Colonoscopy Normal Normal [facility] Provider HEALTH MAINTENANCE Edited Result - Final * HIV AB/AG (04/27/2022 2:42 PM EDT) Pathologist [facility] HIV AB/AG Nonreactive Nonreactive [facility] [...] of detection of this assay. The [employer] Licensed Practical Nurse Instructor HIV Ag/Ab Combo assay result and supplemental [...] Recently Relevant to Health Maintenance Insurance [facility] < 65 [facility] STAND[facility] STAND ADULT [facility] PPO Care Teams Premium Representative Relationship Specialty Start Date End Date Mely Vasquez MD [address] [place] [phone] PCP - General Family Medicine 05/11/21
--- OUTSIDE RECORDS SUMMARY | 2025-07-20 16:08 | XMS_ITS | Encounter Summary ---
Author Organization [employer] Address [address] [facility] [address] [place] [address] Care Team Providers Care Rn Bariatric Name Role Phone Mely Vasquez MD Primary Care Provider [phone] Reason for Visit * Reason Onset Date Comments ER Follow-up 12/10/2024 Nurse Triage 12/10/2024 Encounter Details Date Type Department Care Team ([facility] Contact Info) Description 12/10/2024 Telephone [facility] MEDICINE [address] [place] [address] Mely Vasquez MD [address] [place], [place] [phone] ER Follow-up; Nurse Triage Social History Tobacco [...] ED visit on : Date: 12/03 [facility] Seen for: Gastro-esophageal reflux disease, Constipation Symptomatic Yes *if yes message should go to Triage Patient advised will forward to team nurse for follow up Symptoms: Pain - Severe, Diarrhea Outcome: Talk to a nurse or provider within 15 minutes Reason: Blood in the diarrhea The caller accepted this outcome. [phone] documented in this encounter Plan of Treatment Upcoming Encounters Date Type Department Care Team (Late st Contact Info) Description 07/26/2025 1:45 PM EST Office Visit [address] [address] Mely Vasquez MD [address] [place] [phone] 10/05/2025 11:00 AM EDT Office Visit [address] [address] documented as of this encounter Visit Diagnoses Not on filedocumented in this encounter Additional Health Concerns Assessment Noted Time PHQ-9 Depression Total Score: 0 02/27/20 23 3:09 PM EDT documented as of this encounter Care Teams Rn Bariatric Relationship Specialty Start Date End Date Mely Vasquez MD [address] [place] [phone] PCP - General Family Medicine 05/11/21 documented as of this encounter
--- OUTSIDE RECORDS SUMMARY | 2025-07-20 16:08 | XMS_ITS | Encounter Summary ---
Author Organization [employer] Address 75 [facility] 7t [place] [address] Care Team Providers Care Desk Director Name Role Phone Mely Vasquez MD Primary Care Provider [phone] Reason for Visit * Reason Onset Date Comments Med Refill 07/20/2025 Encounter Details Date Type Department Care Team ([facility] Contact Info) Description 07/20/2025 Refill [facility] MEDICINE [address] [place], [place] [phone] Mely Vasquez MD [address] [place], [place] [phone] Social History Tobacco Use Types Packs/Day Years [...] encounter Miscellaneous Notes * Telephone Encounter - Noemy King LPN - 07/20/2025 2:18 PM EST Last seen 03/30/25. * Telephone Encounter - Yevgeniy Pink - 07/20/2025 2:16 PM EST TC from pt requesting medication refill. Medications needing refill : valsartan (Diovan) 40 MG tablet To be sent to: [facility]/pharmacy #[id number] [place], [place] - [address] [place] [address] documented in this encounter Plan of Treatment Upcoming Encounters Date Type Department Care Team (Late st Contact Info) Description 07/26/2025 1:45 PM EST Office Visit [facility] MEDICINE [address] [place], [place] [phone] Mely Vasquez MD [address] [place], [place] [phone] 10/05/2025 11:00 AM EDT Office Visit [facility] MED[facility]INE [address] [place] [address] documented as of this encounter Visit Diagnoses Not on filedocumented in this encounter Additional Health Concerns Assessment Noted Time PHQ-9 Depression Total Score: 9 12/30/19 25 1:30 PM EDT documented as of this encounter Care Teams Desk Director Relationship Specialty Start Date End Date Mely Vasquez MD [address] [place] [address] PCP - General Family Medicine 05/11/21 documented as of this encounter
--- OUTSIDE RECORDS SUMMARY | 2025-07-20 16:08 | XMS_ITS | Encounter Summary ---
Author Organization [employer] Address 75 [facility] 7t [place] [address] Care Team Providers Care Business Banking Sales Assistant Name Role Phone Mely Vasquez MD Primary Care Provider [phone] Reason for Visit * Reason Onset Date Comments Med Refill 06/09/2024 Encounter Details Date Type Department Care Team ([facility] Contact Info) Description 06/09/2024 Telephone [facility] MEDICINE 230 [place], [place] [phone] Mely Vasquez MD 230 [place], [place] [phone] Med Refill Social History Tobacco Use Types [...] tablet To be sent to: [facility]/pharmacy #[id number] [place] [address] - [address] [place] [address] documented in this encounter Plan of Treatment Upcoming Encounters Date Type Department Care Team (Late st Contact Info) Description 07/26/2025 1:45 PM EST Office Visit [address] [address] Mely Vasquez MD [address] [place] [address] 10/05/2025 11:00 AM EDT Office Visit [address] [address] documented as of this encounter Visit Diagnoses Not on filedocumented in this encounter Additional Health Concerns Assessment Noted Time PHQ-9 Depression Total Score: 0 02/27/20 23 3:09 PM EDT documented as of this encounter Care Teams Business Banking Sales Assistant Relationship Specialty Start Date End Date Mely Vasquez MD [address] [place] [address] PCP - General Family Medicine 05/11/21 documented as of this encounter
--- OUTSIDE RECORDS SUMMARY | 2025-07-20 16:08 | XMS_ITS | Encounter Summary ---
Author Organization [employer] Address 75 [facility] 7t [place] [address] Care Team Providers Care District Resource Officer Name Role Phone Mely Vasquez MD Primary Care Provider [phone] Reason for Visit * Reason Onset Date Comments Med Refill 12/10/2024 Encounter Details Date Type Department Care Team ([facility] Contact Info) Description 12/10/2024 Telephone [facility] MEDICINE 230 [place], [place] [phone] Mely Vasquez MD [address] [place], [place] [phone] Med Refill Social History Tobacco Use Types [...] release tablet To be sent to: [facility]/pharmacy #[address] [place] [address] * Telephone Encounter - Kami Serrano - 12/10/2024 8:41 AM EDT TC from pt requesting medication refill. Medications needing refill : oxyCODONE (Roxicodone) 15 MG immediate release tablet To be sent to: [facility]/pharmacy #[address] [place] [address] [facility]. Pt was advised. documented in this encounter Plan of Treatment Upcoming Encounters Date Type Department Care Team (Late st Contact Info) Description 07/26/2025 1:45 PM EST Office Visit [facility] MEDICINE 230 [place], [place] [phone] Mely Vasquez MD [address] [place], [place] [phone] 10/05/2025 11:00 AM EDT Office Visit [facility] MEDICINE 230 [place] [address] documented as of this encounter Visit Diagnoses Not on filedocumented in this encounter Additional Health Concerns Assessment Noted Time PHQ-9 Depression Total Score: 0 02/27/20 23 3:09 PM EDT documented as of this encounter Care Teams District Resource Officer Relationship Specialty Start Date End Date Mely Vasquez MD [address] [place] [address] PCP - General Family Medicine 05/11/21 documented as of this encounter
--- OUTSIDE RECORDS SUMMARY | 2025-07-20 16:08 | XMS_ITS | Encounter Summary ---
Author Organization [facility] Address 75 [facility] 7t [place] [address] Care Team Providers Care Pharmacists Name Role Phone Mely Vasquez MD Primary Care Provider [phone] Reason for Visit * Reason Onset Date Comments Med Refill 06/22/2025 Encounter Details Date Type Department Care Team ([facility] Contact Info) Description 06/22/2025 Telephone [facility] MEDICINE 230 [place], [place] [phone] Mely Vasquez MD 230 [place], [place] [phone] Med Refill Social History Tobacco Use Types [...] * Telephone Encounter - Yevgeniy Pink - 06/22/2025 10:25 AM EST TC from pt requesting medication refill. Medications needing refill : oxyCODONE (Roxicodone) 15 MG immediate release tablet To be sent to: [facility]/pharmacy #[id number] [place] [address] documented in this encounter Plan of Treatment Upcoming Encounters Date Type Department Care Team (Late st Contact Info) Description 07/26/2025 1:45 PM EST Office Visit [facility] MEDICINE [address] [place] [address] Mely Vasquez MD [address] [place] [address] 10/05/2025 11:00 AM EDT Office Visit [facility] MEDICINE [address] [place] [address] documented as of this encounter Visit Diagnoses Not on filedocumented in this encounter Additional Health Concerns Assessment Noted Time PHQ-9 Depression Total Score: 9 12/30/19 25 1:30 PM EDT documented as of this encounter Care Teams Pharmacists Relationship Specialty Start Date End Date Mely Vasquez MD 230 [place] [address] PCP - General Family Medicine 05/11/21 documented as of this encounter
--- OUTSIDE RECORDS SUMMARY | 2025-07-20 16:08 | XMS_ITS | Encounter Summary ---
Author Organization [employer] Address 75 [facility] 7t [place] [address] Care Team Providers Care Graduate Advisor Name Role Phone Mely Vasquez MD Primary Care Provider [phone] Reason for Visit * Reason Onset Date Comments Med Refill 10/21/2024 Encounter Details Date Type Department Care Team ([facility] Contact Info) Description 10/21/2024 Telephone [facility] MEDICINE 230 [place], [place] [phone] Mely Vasquez MD 230 [place], [place] [phone] Med Refill Social History Tobacco Use Types [...] be sent to: [facility]/pharmacy #[id number] [place] [address] - [address] [place] [address] documented in this encounter Plan of Treatment Upcoming Encounters Date Type Department Care Team (Late st Contact Info) Description 07/26/2025 1:45 PM EST Office Visit [facility] MEDICINE [address] [place] [address] Mely Vasquez MD [address] [place] [address] 10/05/2025 11:00 AM EDT Office Visit [facility] MEDICINE [address] [place] [address] documented as of this encounter Visit Diagnoses Not on filedocumented in this encounter Additional Health Concerns Assessment Noted Time PHQ-9 Depression Total Score: 0 02/27/20 23 3:09 PM EDT documented as of this encounter Care Teams Graduate Advisor Relationship Specialty Start Date End Date Mely Vasquez MD [address] [place] [address] PCP - General Family Medicine 05/11/21 documented as of this encounter
--- OUTSIDE RECORDS SUMMARY | 2025-07-20 16:08 | XMS_ITS | Encounter Summary ---
Author Organization [employer] Address 75 [facility] 7t [place] [address] Care Team Providers Care Courtesy Car Driver Name Role Phone Mely Vasquez MD Primary Care Provider [phone] Reason for Visit * Reason Onset Date Comments Med Refill 04/05/2025 Encounter Details Date Type Department Care Team ([facility] Contact Info) Description 04/05/2025 Telephone [facility] MEDICINE 230 [place], [place] [phone] Mely Vasquez MD 230 [place], [place] [phone] Med Refill Social History Tobacco Use Types [...] from pt calling back requesting to schedule ASSORTER LAUNDRY visit as well as to discuss Pain Management group. Please contact pt at [phone]. (Danish Speaker) * Telephone Encounter - David Alan - 04/05/2025 8:19 AM EDT TC from pt requesting medication refill. Medications needing refill : oxyCODONE (Roxicodone) 15 MG immediate release tablet To be sent to: [facility]/pharmacy #[id number] documented in this encounter Plan of Treatment Upcoming Encounters Date Type Department Care Team (Late st Contact Info) Description 07/26/2025 1:45 PM EST Office Visit [facility] MEDICINE 230 [place] [address] Mely Vasquez MD 230 [place], [place] [phone] 10/05/2025 11:00 AM EDT Office Visit [facility] MEDICINE 230 [place] [address] documented as of this encounter Visit Diagnoses Not on filedocumented in this encounter Additional Health Concerns Assessment Noted Time PHQ-9 Depression Total Score: 9 12/30/19 25 1:30 PM EDT documented as of this encounter Care Teams Courtesy Car Driver Relationship Specialty Start Date End Date Mely Vasquez MD 230 [place] [address] PCP - General Family Medicine 05/11/21 documented as of this encounter
--- OUTSIDE RECORDS SUMMARY | 2025-07-20 16:08 | XMS_ITS | Encounter Summary ---
Author Organization [employer] Address 75 [facility] 7t [place] [address] Care Team Providers Care Volunteer Firefighter Name Role Phone Mely Vasquez MD Primary Care Provider [phone] Reason for Visit * Reason Comments Med Refill Encounter Details Date Type Department Care Team ([facility] st Contact Info) Description 04/26/2024 Refill [facility] MEDICINE 230 [place], [place] [phone] Mely Vasquez MD 230 [place], [place] [phone] Chronic rhinosinusitis; Chronic sinusitis, unspecified location Social [...] Description 07/26/2025 1:45 PM EST Office Visit [address] [address] Mely Vasquez MD [address] [place] [address] 10/05/2025 11:00 AM EDT Office Visit [address] [address] documented as of this encounter Visit Diagnoses Diagnosis Chronic rhinosinusitis Unspecified sinusitis (chronic) Chronic sinusitis, unspecified location documented in this encounter Additional Health Concerns Assessment Noted Time PHQ-9 Depression Total Score: 0 02/27/20 23 3:09 PM EDT documented as of this encounter Care Teams Volunteer Firefighter Relationship Specialty Start Date End Date Mely Vasquez MD [address] [place] [address] PCP - General Family Medicine 05/11/21 documented as of this encounter
--- OUTSIDE RECORDS SUMMARY | 2025-07-20 16:08 | XMS_ITS | Encounter Summary ---
Author Organization [employer] Address 75 [facility] 7t [place] [address] Care Team Providers Care Endless Track Vehicle Mechanic Name Role Phone Mely Vasquez MD Primary Care Provider [phone] Reason for Visit * Reason Onset Date Comments Reschedule 12/04/2023 Encounter Details Date Type Department Care Team ([facility] Contact Info) Description 12/04/2023 Telephone [facility] MEDICINE 230 [place], [place] [phone] Mely Vasquez MD 230 [place], [place] [phone] Reschedule Social History Tobacco Use Types Packs/Day [...] AM EDT Tc from pt requesting r/s PERSONNEL SCHEDULER appt documented in this encounter Plan of Treatment Upcoming Encounters Date Type Department Care Team (Late st Contact Info) Description 07/26/2025 1:45 PM EST Office Visit [address] [address] Mely Vasquez MD [address] [place] [address] 10/05/2025 11:00 AM EDT Office Visit [address] [address] documented as of this encounter Visit Diagnoses Not on filedocumented in this encounter Additional Health Concerns Assessment Noted Time PHQ-9 Depression Total Score: 0 02/27/20 23 3:09 PM EDT documented as of this encounter Care Teams Endless Track Vehicle Mechanic Relationship Specialty Start Date End Date Mely Vasquez MD [address] [place] [address] PCP - General Family Medicine 05/11/21 documented as of this encounter
--- OUTSIDE RECORDS SUMMARY | 2025-07-20 16:08 | XMS_ITS | Encounter Summary ---
Author Organization [employer] Address 75 [facility] 7t [place] [address] Care Team Providers Care Cooperage Shop Supervisor Name Role Phone Mely Vasquez MD Primary Care Provider [phone] Reason for Visit * Reason Onset Date Comments Med Refill 02/24/2024 Encounter Details Date Type Department Care Team ([facility] Contact Info) Description 02/24/2024 Telephone [facility] MEDICINE 230 [place], [place] [phone] Mely Vasquez MD 230 [place], [place] [phone] Med Refill Social History Tobacco Use Types [...] immediate release tablet To be sent to: [facility]/pharmacy #[address] [place] [address] documented in this encounter Plan of Treatment Upcoming Encounters Date Type Department Care Team (Late st Contact Info) Description 07/26/2025 1:45 PM EST Office Visit [facility] MEDICINE [address] [place] [address] Mely Vasquez MD [address] [place] [address] 10/05/2025 11:00 AM EDT Office Visit [facility] MEDICINE [address] [place] [address] documented as of this encounter Visit Diagnoses Not on filedocumented in this encounter Additional Health Concerns Assessment Noted Time PHQ-9 Depression Total Score: 0 02/27/20 23 3:09 PM EDT documented as of this encounter Care Teams Cooperage Shop Supervisor Relationship Specialty Start Date End Date Mely Vasquez MD [address] [place] [address] PCP - General Family Medicine 05/11/21 documented as of this encounter
--- OUTSIDE RECORDS SUMMARY | 2025-07-20 16:08 | XMS_ITS | Encounter Summary ---
Author Organization [employer] Address 75 [facility] 7t [place] [address] Care Team Providers Care Rawhide Bone Roller Name Role Phone Mely Vasquez MD Primary Care Provider [phone] Reason for Visit * Reason Onset Date Comments Med Refill 03/20/2024 Encounter Details Date Type Department Care Team ([facility] Contact Info) Description 03/20/2024 Telephone [facility] MEDICINE 230 [place], [place] [phone] Mely Vasquez MD 230 [place], [place] [phone] Med Refill Social History Tobacco Use Types [...] be sent to: [facility]/pharmacy #[id number] [place] [address] - [address] [place] [address] documented in this encounter Plan of Treatment Upcoming Encounters Date Type Department Care Team (Late st Contact Info) Description 07/26/2025 1:45 PM EST Office Visit [address] [address] Mely Vasquez MD [address] [place] [address] 10/05/2025 11:00 AM EDT Office Visit [facility] MEDICINE [address] [place] [address] documented as of this encounter Visit Diagnoses Not on filedocumented in this encounter Additional Health Concerns Assessment Noted Time PHQ-9 Depression Total Score: 0 02/27/20 23 3:09 PM EDT documented as of this encounter Care Teams Rawhide Bone Roller Relationship Specialty Start Date End Date Mely Vasquez MD [address] [place] [address] PCP - General Family Medicine 05/11/21 documented as of this encounter
--- OUTSIDE RECORDS SUMMARY | 2025-07-20 16:08 | XMS_ITS | Encounter Summary ---
Author Organization [employer] Address 75 [facility] 7t [place] [address] Care Team Providers Care Computer Typesetter Keyliner Name Role Phone Mely Vasquez MD Primary Care Provider [phone] Encounter Details Date Type Department Care Team (Latest Contact Info) Description 07/19/2025 Travel Social History Tobacco Use Types Packs/Day [...] Description 07/26/2025 1:45 PM EST Office Visit [facility] MEDICINE [address] [place] [address] Mely Vasquez MD [address] [place] [address] 10/05/2025 11:00 AM EDT Office Visit [address] [address] documented as of this encounter Visit Diagnoses Not on filedocumented in this encounter Additional Health Concerns Assessment Noted Time PHQ-9 Depression Total Score: 9 12/30/19 25 1:30 PM EDT documented as of this encounter Care Teams Computer Typesetter Keyliner Relationship Specialty Start Date End Date Mely Vasquez MD [address] [place] [address] PCP - General Family Medicine 05/11/21 documented as of this encounter
--- OUTSIDE RECORDS SUMMARY | 2025-07-20 16:08 | XMS_ITS | Encounter Summary ---
Author Organization [employer] Address 75 [facility] 7t [place] [address] Care Team Providers Care Line Crewman Name Role Phone Mely Vasquez MD Primary Care Provider [phone] Reason for Visit * Reason Onset Date Comments Durable Medical Equipment 03/23/2024 Encounter Details Date Type Department Care Team ([facility] st Contact Info) Description 03/23/2024 Telephone [facility] MEDICINE 230 [place], [place] [phone] Mely Vasquez MD 230 [place], [place] [phone] Durable Medical Equipment Social History Tobacco Use [...] your housing situation today? I have nydia oerllana 05/15/[address] you li [...] Description 07/26/2025 1:45 PM EST Office Visit [facility] MEDICINE [address] [place] [address] Mely Vasquez MD [address] [place] [address] 10/05/2025 11:00 AM EDT Office Visit [address] [address] documented as of this encounter Visit Diagnoses Not on filedocumented in this encounter Additional Health Concerns Assessment Noted Time PHQ-9 Depression Total Score: 0 02/27/20 23 3:09 PM EDT documented as of this encounter Care Teams Line Crewman Relationship Specialty Start Date End Date Mely Vasquez MD [address] [place] [address] PCP - General Family Medicine 05/11/21 documented as of this encounter
--- OUTSIDE RECORDS SUMMARY | 2025-07-20 16:09 | XMS_ITS | Encounter Summary ---
Author Organization [employer] Address 75 [facility] 7t h Floor [place] [phone] Care Team Providers Care Ostomy Rn Name Role Phone Mely Vasquez MD Primary Care Provider [phone] Reason for Visit * Reason Onset Date Comments Med Refill 06/26/2023 Encounter Details Date Type Department Care Team ([facility] st Contact Info) Description 06/26/2023 Refill [facility] MEDICINE 230 [place], [place] [phone] Mely Vasquez MD 230 [place], [place] [phone] Lumbar disc disease Social History Tobacco Use [...] (Roxicodone) 15 MG immediate release tablet [facility] [place] [address] documented in this encounter Plan of Treatment Upcoming Encounters Date Type Department Care Team (Late st Contact Info) Description 07/26/2025 1:45 PM EST Office Visit [address] [address] Mely Vasquez MD [address] [place] [address] 10/05/2025 11:00 AM EDT Office Visit [address] [address] documented as of this encounter Visit Diagnoses Diagnosis Lumbar disc disease Other and unspecified disc disorder of lumbar region documented in this encounter Additional Health Concerns Assessment Noted Time PHQ-9 Depression Total Score: 0 02/27/20 23 3:09 PM EDT documented as of this encounter Care Teams Ostomy Rn Relationship Specialty Start Date End Date Mely Vasquez MD [address] [place] [address] PCP - General Family Medicine 10/14/21 documented as of this encounter
== END 2025-07-20 15:23 | disposition home or self-care (01) ==
LOC: HO.HGS 14:52
PROVIDERS: PCP Family Medicine; Visit Provider Surgery
DX: K40.91 Unilateral inguinal hernia, without obstruction or gangrene, recurrent (principal)
CPT/HCPCS: 99214

== ENCOUNTER → 2025-07-20 14:52 | Outpatient (BNVA) | payer OTHER, SELFPAY | PROVIDERS: PCP Family Medicine; Visit Provider Surgery | DX: K40.91 Unilateral inguinal hernia, without obstruction or gangrene, recurrent (principal); Z98.890 Other specified postprocedural states | CPT/HCPCS: 99212 ==